=== PATIENT | female | born 1950 | race Caucasian/White ===

== ENCOUNTER 2018-03-20 12:31 | Inpatient (IN) | payer OTHER ==
[2018-03-20 13:17] LABS: Absolute Monocytes 0.7 K/uL (0.1-1.3); Basophils % 0.8 % (0-1.3); Eosinophils % 2.3 % (0-4.4); Hematocrit 44.1 % (36.0-45.0); Lymphocytes % 22.6 % (15.3-44.8); MCH 29.6 pg (27.0-35.0); MCV 87.6 fL (80-100); MPV 9.2 fL (7.6-11.3); Monocytes % 7.4 % (3.3-12.3); RBC Red Blood Cell Count 5.04 M/uL (3.86-4.86)
[2018-03-20 13:34] LABS: Albumin 3.6 g/dL (3.4-5.0); Bilirubin Total 0.4 mg/dL (0.2-1.0); Magnesium 1.8 mg/dL (1.8-2.4)
--- NOTE | 2018-03-20 14:00 | RAD REPORT ---
EXAM DESCRIPTION: RAD - Chest Single View - 03/20/2018 1:33 pm CLINICAL HISTORY: Chest pain COMPARISON: August 2012 TECHNIQUE: AP portable chest image was obtained 1330 hours . FINDINGS: Lungs are clear. Heart size is normal. Pulmonary vasculature within normal limits. Lung ma rkings are similar to the comparison. No measurable pleural effusion and no pneumothorax. Mild should er joint degenerative changes are present. No acute aortic findings suspected. IMPRESSION: No acute cardiopulmonary process. No significant change from comparison.
[2018-03-20] MEDS ORDERED: MORPHINE 4 MG/ML SYR IV PRN (15:07)
[2018-03-20] MEDS ORDERED: ONDANSETRON 4 MG/2 ML VIAL IV PRN (15:07)
--- NOTE | 2018-03-20 15:23 | EDPHYS ---
Physician Documentation [facility] Name: Laura Khanna Age: 68 yrs Sex: Female : 1950 Arrival Date: 03/20/2018 Time: 12:34 Bed 5 Private MD: Billy Khan R ED Physician Errol Godfrey HPI: 03/20 12:48 This 68 yrs old Female presents to ER via Unassigned with complaints of Chest ps1 Tightness, Dizziness, Headache. 12:[address] her way to the [facility] and had an acute onset of lightheadedness and then ps1 headache and chest discomfort. She is IDDM and took 20U lantus prior she had eggs and no carbs. BS 140 prior to administration. Seen by [facility] previously and had LHC 2 years ago that was clean. Patient states she had substernal CP that was discribed as discomfort without radiation and rated as mild to moderate. No remitting or exacerbating factors. . Historical: - Allergies: 12:54 Iodine; jl7 12:54 Levaquin; jl7 12:54 PENICILLINS; jl7 - Home Meds: 12:45 Lantus 100 unit/mL Sub-Q soln [Active]; metformin 1,000 mg Oral tab 1 tab 2 times per aa5 day [Active]; Levothroid 75 mcg Oral tab 1 tab once daily [Active]; omeprazole 40 mg Oral cpDR 1 cap once daily [Active]; metoprolol tartrate 50 mg Oral tab once daily [Active]; - PMHx: 12:45 Hypertension; Hypothyroidism; Diabetes - IDDM; aa5 - PSHx: 12:45 Hysterectomy; Tonsillectomy; Rotator Cuff repair; Cholecystectomy; Appendectomy; aa5 - Immunization history:: Adult Immunizations up to date. - Social history:: Smoking status: Patient/guardian denies using tobacco. - Ebola Screening: : No symptoms or risks identified at this time. ROS: 12:48 Constitutional: Negative for fever, chills, and weight loss, Eyes: Negative for injury, ps1 pain, redness, and discharge, Respiratory: Negative for shortness of breath, cough, wheezing, and pleuritic chest pain, Abdomen/GI: Negative for abdominal pain, nausea, vomiting, diarrhea, and constipation, Back: Negative for injury and pain, MS/Extremity: Negative for injury and deformity, Skin: Negative for injury, rash, and discoloration. 12:48 Cardiovascular: Positive for chest pain. 12:48 Neuro: Positive for near syncope. Exam: 12:48 Constitutional: This is a well developed, well nourished patient who is awake, alert, ps1 and in no acute distress. Head/Face: Normocephalic, atraumatic. Eyes: Pupils equal round and reactive to light, extra-ocular motions intact. Lids and lashes normal. Conjunctiva and sclera are non-icteric and not injected. Chest/axilla: Normal chest wall appearance and motion. Nontender with no deformity. No lesions are appreciated. Cardiovascular: Regular rate and rhythm. No gallops, murmurs, or rubs. Normal PMI, no JVD. No pulse deficits. Respiratory: Lungs have equal breath sounds bilaterally, clear to auscultation and percussion. No rales, rhonchi or wheezes noted. No increased work of breathing, no retractions or nasal flaring. Abdomen/GI: Soft, non-tender, with normal bowel sounds. No distension or tympany. No guarding or rebound. No evidence of tenderness throughout. MS/ Extremity: Pulses equal, no cyanosis. Neurovascular intact. Full, normal range of motion. Neuro: Awake and alert, GCS 15, oriented to person, place, time, and situation. Cranial nerves II-XII grossly intact. Sensory grossly intact. Psych: Awake, alert, with orientation to person, place and time. Behavior, mood, and affect are within normal limits. Vital Signs: 12:37 BP 176 / 105; Pulse 80; Resp 19 S; Temp 97.7(O); Pulse Ox 99% on R/A; Weight 102.06 kg jl7 (R); Height 5 ft. 5 in. (165.10 cm) (R); Pain 7/10; 13:00 BP 185 / 85; Pulse 78; Resp 16 S; Pulse Ox 97% on R/A; aa5 13:30 BP 171 / 91; Pulse 78; Resp 16 S; Pulse Ox 95% on R/A; aa5 14:00 BP 172 / 75; Pulse 75; Resp 16; Pulse Ox 96% on R/A; aa5 15:00 BP 170 / 83; Pulse 75; Resp 16 S; Pulse Ox 98% on R/A; aa5 12:37 Body Mass Index 37.44 (102.06 kg, 165.10 cm) jl7 MDM: 12:47 Patient medically screened. ps1 03/20 12:55 Order name: CBC with Diff; Complete Time: 13:24 ps1 03/20 12:55 Order name: Magnesium; Complete Time: 13:48 ps1 03/20 12:55 Order name: NT PRO-BNP; Complete Time: 13:48 ps1 03/20 12:55 Order name: Troponin (emerg Dept Use Only); Complete Time: 13:48 ps1 03/20 12:55 Order name: CMP; Complete Time: 13:48 ps1 03/20 14:11 Order name: Urine Dipstick--Ancillary (enter results) bd 03/20 12:55 Order name: XRAY Chest (1 view); Complete Time: 14:04 ps1 03/20 15:09 Order name: Basic Metabolic Panel EDMS 03/20 15:09 Order name: Basic Metabolic Panel EDMS 03/20 15:09 Order name: CBC with Automated Diff EDMS 03/20 15:09 Order name: CBC with Automated Diff EDMS 03/20 15:09 Order name: Troponin I EDMS 03/20 15:09 Order name: Troponin I EDMS 03/20 15:09 Order name: Troponin I EDMS 03/20 12:55 Order name: EKG; Complete Time: 12:56 ps1 03/20 12:55 Order name: Cardiac monitoring; Complete Time: 13:06 ps1 03/20 12:55 Order name: EKG - Nurse/Tech; Complete Time: 13:06 ps1 03/20 12:55 Order name: IV Saline Lock; Complete Time: 13:06 ps1 03/20 12:55 Order name: Labs collected and sent; Complete Time: 13:06 ps1 03/20 12:55 Order name: O2 Per Protocol; Complete Time: 13:06 ps1 03/20 12:55 Order name: O2 Sat Monitoring; Complete Time: 13:06 ps1 03/20 12:55 Order name: Urine Dipstick-Ancillary (obtain specimen); Complete Time: 14:16 ps1 03/20 15:09 Order name: CONS Physician Consult EDMS 03/20 15:09 Order name: Regular EDMS 03/20 15:09 Order name: EKG Electrocardiogram EDMS 08/13 15:09 Order name: EKG Electrocardiogram EDIA 03/20 15:09 Order name: EKG Electrocardiogram EDIA 03/20 15:09 Order name: EKG Electrocardiogram EDIA EC:48 Rate is 76 beats/min. Rhythm is regular. Left axis deviation noted. FL interval is ps1 normal. QRS interval is prolonged. QT interval is normal. No Q waves. T waves are Normal. No ST changes noted. Clinical impression: LAD, LBBB, no sgarbossa. . Interpreted by me. Administered Medications: No medications were administered Point of Care Testing: Blood Glucose: 12:50 Blood Glucose: 114 mg/dL; aa5 Ranges: Critical Glucose Levels:Adult <50 mg/dl or >400 mg/dl <40 mg/dl or >180 mg/dl Disposition: 03/20/18 15:22 Hospitalization ordered by Billy Khan for Observation. Preliminary diagnosis is Other chest pain. - Bed requested for Telemetry/MedSurg (observation). - Status is Observation. la1 - Condition is Stable. - Problem is new. - Symptoms are unchanged. UTI on Admission? No Signatures: Dispatcher [employer] EDIA Lauryn Byrd bd Shilpa Culver, RN RN aa5 Julio Cesar Plasencia RN RN la1 Jayden Carter RN RN jl7 Errol Godfrey MD MD ps1 Corrections: (The following items were deleted from the chart) 12:54 12:53 Immunization history: Adult Immunizations jl7 jl7 15:23 15:22 Hospitalization Ordered by Billy Khan MD for Observation. Preliminary diagnosis bd is Other chest pain. Bed requested for Telemetry/MedSurg (observation). Status is Observation. Condition is Stable. Problem is new. Symptoms are unchanged. UTI on Admission? No. ps1 15:47 15:23 03/20/2018 15:22 Hospitalization Ordered by Billy Khan MD for Observation. la1 Preliminary diagnosis is Other chest pain. Bed requested for Telemetry/MedSurg (observation). Status is Observation. Condition is Stable. Problem is new. Symptoms are unchanged. UTI on Admission? No. bd
--- NOTE | 2018-03-20 15:23 | ER ---
Nurse's Notes [facility] Name: Laura Khanna Age: 68 yrs Sex: Female : 1950 Arrival Date: 03/20/2018 Time: 12:34 Bed 5 Private MD: Billy Khan R Diagnosis: Other chest pain Presentation: 03/20 12:37 Presenting complaint: Patient states: Sudden onset of chest pain and dizziness started jl7 about an hour ago. 12:37 Acuity: ZACARIAS 2 jl7 12:45 Initial Sepsis Screen: Does the patient meet any 2 criteria? No. Patient's initial aa5 sepsis screen is negative. Does the patient have a suspected source of infection? No. Patient's initial sepsis screen is negative. 12:53 Transition of care: patient was not received from another setting of care. Onset of jl7 symptoms was March 20, 2018 at 11:30. Risk Assessment: Do you want to hurt yourself or someone else? Patient reports no desire to harm self or others. Care prior to arrival: None. 12:53 Method Of Arrival: Ambulatory jl7 Historical: - Allergies: 12:54 Iodine; jl7 12:54 Levaquin; jl7 12:54 PENICILLINS; jl7 - Home Meds: 12:45 Lantus 100 unit/mL Sub-Q soln [Active]; metformin 1,000 mg Oral tab 1 tab 2 times per aa5 day [Active]; Levothroid 75 mcg Oral tab 1 tab once daily [Active]; omeprazole 40 mg Oral cpDR 1 cap once daily [Active]; metoprolol tartrate 50 mg Oral tab once daily [Active]; - PMHx: 12:45 Hypertension; Hypothyroidism; Diabetes - IDDM; aa5 - PSHx: 12:45 Hysterectomy; Tonsillectomy; Rotator Cuff repair; Cholecystectomy; Appendectomy; aa5 - Immunization history:: Adult Immunizations up to date. - Social history:: Smoking status: Patient/guardian denies using tobacco. - Ebola Screening: : No symptoms or risks identified at this time. Screenin:45 Abuse screen: Denies threats or abuse. Nutritional screening: No deficits noted. aa5 Tuberculosis screening: No symptoms or risk factors identified. Fall Risk None identified. Assessment: 12:45 General: Appears comfortable, Behavior is calm, cooperative. Pain: Complains of pain in aa5 mid-sternal area and neck Pain does not radiate. Pain currently is 0 out of 10 on a pain scale. Quality of pain is described as pressure, squeezing, Pain began 30 min ago. Is intermittent. Neuro: Level of Consciousness is awake, alert, obeys commands, Oriented to person, place, time, situation, Director [employer] are equal bilaterally Moves all extremities. Speech is normal, Facial symmetry appears normal, Pupils are PERRLA, Pt currently denies dizziness . Cardiovascular: Heart tones S1 S2 present Rhythm is sinus rhythm. Respiratory: Airway is patent Respiratory effort is even, unlabored, Respiratory pattern is regular, symmetrical, Breath sounds are clear bilaterally. Denies cough, shortness of breath. GI: Abdomen is round non-distended, Bowel sounds present X 4 quads. Abd is soft and non tender X 4 quads. Reports nausea, Patient currently denies vomiting. : No signs and/or symptoms were reported regarding the genitourinary system. EENT: No signs and/or symptoms were reported regarding the EENT system. Derm: Skin is pink, warm \\T\\ dry. Musculoskeletal: Range of motion: intact in all extremities. 13:00 Reassessment: Patient and/or family updated on plan of care and expected duration. Pain aa5 level reassessed. Patient is alert, oriented x 3, equal unlabored respirations, skin warm/dry/pink. Patient denies pain at this time. Pt notified of wait time for lab results . 14:00 Reassessment: Patient and/or family updated on plan of care and expected duration. Pain aa5 level reassessed. Patient is alert, oriented x 3, equal unlabored respirations, skin warm/dry/pink. Patient denies pain at this time. Patient states feeling better. Pt states "I've been getting chest pains every now and then and they last for a couple of minutes and then it goes away". 14:00 Cardiovascular: Rhythm is sinus rhythm. aa5 15:00 Reassessment: Patient and/or family updated on plan of care and expected duration. Pain aa5 level reassessed. Patient is alert, oriented x 3, equal unlabored respirations, skin warm/dry/pink. Patient denies pain at this time. Awaiting disposition. Vital Signs: 12:37 BP 176 / 105; Pulse 80; Resp 19 S; Temp 97.7(O); Pulse Ox 99% on R/A; Weight 102.06 kg jl7 (R); Height 5 ft. 5 in. (165.10 cm) (R); Pain 7/10; 13:00 BP 185 / 85; Pulse 78; Resp 16 S; Pulse Ox 97% on R/A; aa5 13:30 BP 171 / 91; Pulse 78; Resp 16 S; Pulse Ox 95% on R/A; aa5 14:00 BP 172 / 75; Pulse 75; Resp 16; Pulse Ox 96% on R/A; aa5 15:00 BP 170 / 83; Pulse 75; Resp 16 S; Pulse Ox 98% on R/A; aa5 12:37 Body Mass Index 37.44 (102.06 kg, 165.10 cm) 7 ED Course: 12:34 Patient arrived in ED. mr 12:35 Billy Khan MD is Private Physician. mr 12:37 Arm band placed on right wrist. Patient placed in an exam room, on a stretcher. jl7 12:38 Triage completed. jl7 12:41 Errol Godfrey MD is Attending Physician. ps1 12:41 Shilpa Culver RN is Primary Nurse. aa5 12:45 Patient has correct armband on for positive identification. Placed in gown. Bed in low aa5 position. Call light in reach. Side rails up X2. 12:45 monitoring and evaluation advisor on. Pulse ox on. NIBP on. aa5 12:45 No provider procedures requiring assistance completed. Patient maintains SpO2 aa5 saturation greater than 95% on room air. 12:56 Initial lab(s) drawn, by me, sent to lab. Inserted saline lock: 20 gauge in right aa5 wrist, using aseptic technique. Blood collected. 12:56 Missed attempt(s): 20 gauge in right forearm. Bleeding controlled, band aid applied, aa5 catheter tip intact. 13:31 X-ray completed. Portable x-ray completed in exam room. Patient tolerated procedure ml well. 13:32 XRAY Chest (1 view) In Process Unspecified. EDMS 15:13 Report given to Julio Cesar Plasencia RN. aa5 15:22 Errol Godfrey MD is Hospitalizing Provider. ps1 15:22 Hospitalizing Provider role handed off by Errol Godfrey MD ps1 15:22 Billy Khan MD is Hospitalizing Provider. ps1 15:46 Patient admitted, IV remains in place. intact. la1 Administered Medications: No medications were administered Point of Care Testing: Blood Glucose: 12:50 Blood Glucose: 114 mg/dL; aa5 Ranges: Outcome: 15:22 Decision to Hospitalize by Provider. ps1 15:47 Admitted to Tele accompanied by tech, via wheelchair, room 402. la1 15:47 Condition: stable 15:47 Instructed on the need for admit. 15:47 Patient left the ED. la1 Signatures: Dispatcher [employer] EDMS GuzmanVicky mr Pham, Amy Shilpa Domingo RN RN aa5 Julio Cesar Plasencia RN RN la1 Jayden Carter RN RN jl7 Errol Godfrey MD MD ps1 Corrections: (The following items were deleted from the chart) 12:54 12:53 Immunization history: Adult Immunizations jl7 jl7 14:19 14:00 Reassessment: Patient and/or family updated on plan of care and expected aa5 duration. Pain level reassessed. Patient is alert, oriented x 3, equal unlabored respirations, skin warm/dry/pink. Patient denies pain at this time. Patient states feeling better. aa5 14:20 13:00 Reassessment: Patient and/or family updated on plan of care and expected aa5 duration. Pain level reassessed. Patient is alert, oriented x 3, equal unlabored respirations, skin warm/dry/pink. Pt notified of wait time for lab results . aa5 15:12 15:00 Reassessment: Patient and/or family updated on plan of care and expected aa5 duration. Pain level reassessed. Patient is alert, oriented x 3, equal unlabored respirations, skin warm/dry/pink. Patient denies pain at this time. aa5
[2018-03-20 16:18] LABS: Urine Blood NEGATIVE (NEG); Urine Glucose NEGATIVE (NEG); Urine Protein NEGATIVE (NEG)
--- NOTE | 2018-03-20 17:26 | EKG ---
Test Date: 2018-03-20 Test Time: 12:48:58 Recreational Counselor: NORMA MEASUREMENT RESULTS: Intervals: Rate: 76 RI: 150 QRSD: 126 QT: 414 QTc: 465 Benedict: P: 21 RI: 150 QRS: -56 T: 92 INTERPRETIVE STATEMENTS: Normal sinus rhythm Left axis deviation Left bundle branch block Abnormal ECG Compared to ECG 09/04/2012 07:49:44 No significant changes Electronically Signed On 03-20-18 17:26:11 CDT by Cole Almanzar
[2018-03-20] MEDS ORDERED: NITROGLYCERIN 1 GM PKT TD SCH (18:00)
[2018-03-20 18:15] VITALS: BMI 37.4
[2018-03-20] MEDS ORDERED: PNEUMOCOCCAL VACCINE 0.5 ML IMVAC ONE (19:00)
--- NOTE | 2018-03-20 21:13 | RAD REPORT ---
EXAM DESCRIPTION: KARMEN Orellana CP - 03/20/2018 8:45 pm CLINICAL HISTORY: Syncope COMPARISON: None. TECHNIQUE: Real-time sonographic evaluation of both carotid systems was performed. Grayscale and Dop pler interrogation was performed with waveform tracing bilaterally. FINDINGS: Normal high resistance waveforms are noted in both external carotid arteries. The common c arotid arteries and internal carotid arteries show normal low resistance waveforms. No significant plaque formation is seen. Peak systolic velocity values are normal range. However, int ernal carotid artery velocities are elevated, left greater than right due to tortuosity. The elevated velocities generate abnormally high ICA/ CCA ratios. Internal carotid arteries are tortuous. No susp icious waveform pattern seen. Antegrade flow seen in both vertebral arteries. Velocity values and ratios were recorded and are retained in the patient's imaging records. IMPRESSION: On visual inspection, no significant atherosclerotic changes are identifiable. Elevated internal carotid artery velocities and elevated ICA/ CCA ratios are believed to be due to th e ICA tortuosity rather than true atherosclerotic disease. If there are ongoing clinical concerns or exam finding abnormalities, CT angiography or MR angiograph y could be performed.
[2018-03-20] MEDS: ACETAMINOPHEN 500 MG TAB PO PRN (21:34)
--- NOTE | 2018-03-21 00:30 | CON ---
Identification: A 68-year-old woman. Reason For Consult: Syncope and chest pain. History Of Present Illness: Mrs. Khanna was driving. She suddenly felt near syncopal, pulled out to the side of the road. Later, she started driving again, then again felt dizzy. She was brought to the ER. Since being here, she has not had any more of her dizziness. Her blood tests and EKGs and r hythm strips all look good. She has a history of hypertension and diabetes. Social History: The patient uses no tobacco. Medications: She takes insulin, omeprazole, simvastatin, ibuprofen, metoprolol, irbesartan, metformi n, levothyroxine, and aspirin. Allergies: SHE IS ALLERGIC TO LEVOFLOXACIN, PENICILLINS, IODINE INCLUDING BETADINE SOAK. Physical Examination: VITAL SIGNS: 5 feet 5 inches, 225 pounds. GENERAL: Obese, alert and oriented, pleasant, not in distress. NECK: Carotids, no bruit. LUNGS: Clear. HEART: Normal. EXTREMITIES: Normal pulses. Labs: Her electrocardiogram is significant for left bundle-branch block. Apparently, this has been noted before. Four years ago, for similar symptoms, a cardiac cath was done, and it was said to be c ompletely normal. Impression: The patient had syncopal episode. It is unclear what the cause of it is. She did have 1 glucose demonstrated to be 89, but none was done right when she was having symptoms, so it is possi ble she was hypoglycemic. She has liver enzymes that would make one think she has hepatic steatosis, rule out. I will think of her situation again after monitoring her rhythm overnight, getting a stre ss test, carotid Doppler, and echocardiogram. LIANNE/ALFRED Voice ID: [id number] Report ID: [id number]
[2018-03-21 05:57] LABS: Absolute Lymphocytes (CBC) 1.7 K/uL (0.7-4.9); Absolute Monocytes 0.5 K/uL (0.1-1.3); Absolute Neutrophil 3.9 K/uL (1.8-8.0); Eosinophils % 2.2 % (0-4.4); Lymphocytes % 26.7 % (15.3-44.8); MCH 29.9 pg (27.0-35.0); MCV 87.7 fL (80-100); MPV 8.8 fL (7.6-11.3); Monocytes % 8.1 % (3.3-12.3); RBC Red Blood Cell Count 4.45 M/uL (3.86-4.86)
[2018-03-21] MEDS: LEVOTHYROXINE SOD 0.075 MG TAB PO SCH (05:59)
[2018-03-21] MEDS ORDERED: PANTOPRAZOLE 40MG TABLET PO ONE (06:30)
[2018-03-21] MEDS: ASPIRIN EC 81 MG TAB PO SCH (08:47)
[2018-03-21] MEDS: INSULIN GLARGINE 100 UNITS/ML SQ SCH ×2 (09:00→21:00)
[2018-03-21] MEDS ORDERED: ASPIRIN 81 MG CHEWABLE TABLET PO SCH (09:00)
[2018-03-21] MEDS ORDERED: REGADENOSON 0.4 MG/5 ML SYR IV ONE (09:26)
[2018-03-21] MEDS: ACETAMINOPHEN 500 MG TAB PO PRN ×2 (11:38→21:56)
--- NOTE | 2018-03-21 13:22 | RAD REPORT ---
EXAM DESCRIPTION: NM - Rest Stress Cardiac Imaging - 03/21/2018 1:12 pm CLINICAL HISTORY: Chest pain. COMPARISON: 2008 TECHNIQUE: The patient was administered approximately 10mCi of Tc 99m Sestamibi prior to resting SPE CT imaging of the heart. The patient was then administered approximately 30 mCi of Tc 99m Sestamibi f ollowing exercise or pharmacologic stress. Multiplanar SPECT images were reviewed. FINDINGS: Stress images demonstrate a small to moderate area of diminished radiotracer uptake involv ing the anterior left ventricular myocardium. Rest images demonstrate normal radiotracer uptake involving the anterior wall. The left ventricular ejection fraction equals 56% IMPRESSION: Small to moderate apparent reversible perfusion defect involving the anterior left vent ricular myocardium suspicious for stress-induced ischemia
[2018-03-21] MEDS ORDERED: predniSONE 20 MG TAB PO ONE (16:54)
--- NOTE | 2018-03-21 17:00 | TREADPHA ---
DX: CHEST PAIN, NEAR SYNCOPE Date of Study: 03/21/2018 Ht: 5 5 Wt: 225 lb 0 oz Consulting Physician: MARILYNN MEDICATIONS: TYLENOL, ASPIRIN, LIPITOR, LANTUS, AVAPRO, SYNTHROID, ZOFRAN HISTORY: 68 YEAR OLD FEMALE COMPLAINTS OF CHEST PAIN. MEDICAL HISTORY: HYPERTENSION, DIABETES MELLITUS, HYPOTHYROIDISM. PHYSICIAL EXAMINATION: RESTING B.P.: 182/73 RESTING H.R.: 72 RESTING EKG: SINUS WITH PREMATURE VENTRICULAR COMPLEX, LEFT BUNDLE BRANCH BLOCK PROTOCOL: LEXISCAN EXERCISE TIME: 3:30 B.P. AT PEAK STRESS: 168/76 IMPRESSION: LEXISCAN INJECTED, CARDIOLITE INJECTED PER PROTOCOL. SEE NUCLEAR MEDICINE REPORT. NO SUPRAVENTRICULAR TACHYCARDIA. NO VENTRICULAR TACHYCARDIA. NO PREMATURE VENTRICULAR COMPLEXES. DENIED CHEST PAIN. NON-DIAGNOSTIC ELECTROCARDIOGRAM WITH LEXISCAN STRESS.
[2018-03-21] MEDS ORDERED: GLUCAGON 1 MG/VIAL IM PRN (17:10)
[2018-03-21] MEDS ORDERED: D50W 25 GM/50 ML SYRINGE IV PRN (17:10)
[2018-03-21] MEDS: INSULIN -REGULAR HUMAN 50 UNIT/0.5 ML ML SQ SCH ×2 (17:36→21:51)
[2018-03-21] MEDS: HYDRALAZINE HCL 20 MG/ML VIAL IV PRN (17:36)
--- NOTE | 2018-03-21 17:58 | ECHO ---
HEIGHT: 5 ft 5 in WEIGHT: 225 lb 0 oz DATE OF STUDY: 03/21/[address]: 2-DIMENSIONAL: YES M.MODE: YES DOPPLER: YES COLOR FLOW: YES TDS: NO PORTABLE: NO DEFINITY: NO BUBBLE STUDY: NO DIAGNOSIS: CHEST PAIN CARDIAC HISTORY: CATHERIZATION: NO SURGERY: NO PROSTHETIC VALVE: NO PACEMAKER: NO MEASUREMENTS (cm) DIASTOLIC (NORMALS) SYSTOLIC (NORMALS) IVSd 1.3 (0.6-1.2) LA Diam 3.5 (1.9-4.0) LVEF 53% LVIDd 4.4 (3.5-5.7) LVIDs 3.2 (2.0-3.5) %FS 27% LVPWd 1.3 (0.6-1.2) Ao Diam 2.7 (2.0-3.7) 2 DIMENSIONAL ASSESSMENT: RIGHT ATRIUM: NORMAL LEFT ATRIUM: NORMAL RIGHT VENTRICLE: NORMAL LEFT VENTRICLE: LEFT VENTRICULAR HYPERTROPHY TRICUSPID VALVE: NORMAL MITRAL VALVE: NORMAL PULMONIC VALVE: NORMAL AORTIC VALVE: NORMAL PERICARDIAL EFFUSION: NONE AORTIC ROOT: NORMAL LEFT VENTRICULAR WALL MOTION: NORMAL. DOPPLER/COLOR FLOW: IMPAIRED LEFT VENTRICULAR RELAXATION. COMMENTS: NORMAL LEFT VENTRICULAR EJECTION FRACTION. LEFT VENTRICULAR HYPERTROPHY. IMPAIRED LEFT VENTRICULAR RELAXATION. TECHNOLOGIST: CAMILA MOORE
[2018-03-21] MEDS: IRBESARTAN 150 MG TAB PO SCH (21:49)
[2018-03-21] MEDS: ATORVASTATIN 20 MG TAB PO SCH (21:49)
[2018-03-22] MEDS: HYDRALAZINE HCL 20 MG/ML VIAL IV PRN ×2 (00:42→08:42)
--- NOTE | 2018-03-22 01:59 | HP ---
Date of Admission: 03/20/2018 Chief Complaint: Dizziness, near syncope, and chest pain. History Of Present Illness: A 68-year-old female who is a known diabetic, on medication, was brought to the emergency room because of feeling of dizziness and near syncope and tightness in the retroste rnal area while driving. The patient had evaluation done. There was no evidence of myocardial injur y . Past Medical History: Positive for type 2 diabetes, hypothyroidism, hypertension, gastroesophageal r eflux disease. Past Surgical History: Positive for gallbladder surgery, appendix surgery, tonsillectomy, hysterecto my, and shoulder surgery. Review of Systems: No history of fever, chills, or rigors. Physical Examination: General: Reveals a 68-year-old female, obese. Vital Signs: Normal. HEENT: Negative. Neck: Supple. JVD negative. Chest: Clear. Heart: Regular. Abdomen: Pendulous, nontender. Extremities: No edema. Neurological: No deficits. Laboratory Data: White count normal. Chem profile normal except for mild elevation of the ALT, AST. BNP 156. Troponin normal. Assessment: 1.Dizziness, near syncope. 2.Retrosternal chest pain. 3.Type 2 diabetes. 4.Hypothyroidism. 5.Hypertension. 6.History of acid reflux disease. Plan: The patient had no evidence of myocardial injury, however, because of the symptoms, the patien t is scheduled for a pharmacological stress test. HOA/ALFRED Voice ID: [id number]
[2018-03-22] MEDS ORDERED: NA CHLORIDE 0.9% 1,000 ML ONE (05:14)
[2018-03-22] MEDS: LEVOTHYROXINE SOD 0.075 MG TAB PO SCH (05:54)
[2018-03-22] MEDS: ASPIRIN EC 81 MG TAB PO SCH (05:54)
[2018-03-22] MEDS: INSULIN -REGULAR HUMAN 50 UNIT/0.5 ML ML SQ SCH ×4 (08:02→21:20)
[2018-03-22] MEDS ORDERED: LIDOCAINE 1% MPF 2 ML AMPULE ONE (08:32)
[2018-03-22] MEDS ORDERED: HEPA 1000U/500MLS 1,000 UNIT/500 ML BAG IV ONE (08:32)
[2018-03-22] MEDS: INSULIN GLARGINE 100 UNITS/ML SQ SCH ×2 (08:53→21:19)
[2018-03-22] MEDS ORDERED: ATROPINE SULF 1 MG/10 ML SYR IV ONE (09:16)
[2018-03-22] MEDS ORDERED: MIDAZOLAM HCL 2 MG/2 ML INJ ONE ×3 (09:16→09:48)
[2018-03-22] MEDS ORDERED: FENTANYL CITR 100 MCG/2 ML ONE (09:16)
[2018-03-22] MEDS ORDERED: NICARDIPINE HCL 25 MG/10 ML IV ONE (09:16)
[2018-03-22] MEDS ORDERED: NA CHLORIDE 0.9% 50 ML ONE (09:16)
[2018-03-22] MEDS ORDERED: HEPARIN 5000 UNIT/ML 1 ML VIAL ONE (09:16)
[2018-03-22] MEDS ORDERED: NITROGLYCERIN/D5W 25 MG/250 ML BTL IV ONE (09:16)
[2018-03-22] MEDS ORDERED: METHYLPREDNISOLONE 125 MG INJ ONE (09:23)
[2018-03-22] MEDS ORDERED: METOPROLOL TARTRATE 5 MG/5 ML INJ IV ONE ×3 (09:28→09:53)
[2018-03-22] MEDS ORDERED: PRASUGREL (EFFIENT) 10 MG TAB ONE (09:56)
[2018-03-22] MEDS ORDERED: HYDRALAZINE HCL 20 MG/ML VIAL ONE (10:01)
[2018-03-22] MEDS ORDERED: ASPIRIN 81 MG CHEWABLE TABLET ONE (10:20)
[2018-03-22] MEDS: AMLODIPINE 5 MG TAB PO ONE ×2 (10:23→14:07)
[2018-03-22] MEDS ORDERED: METOPROLOL TAR 25 MG TAB PO ONE (10:30)
[2018-03-22] MEDS ORDERED: ACETAMINOPHEN 325 MG TABLET ONE (12:11)
[2018-03-22] MEDS ORDERED: INSULIN -REGULAR HUMAN 50 UNIT/0.5 ML ML ONE (12:11)
[2018-03-22] MEDS: IRBESARTAN 150 MG TAB PO SCH (21:18)
[2018-03-22] MEDS: METOPROLOL TAR 50 MG TAB PO SCH (21:18)
[2018-03-22] MEDS: ATORVASTATIN 20 MG TAB PO SCH (21:19)
--- NOTE | 2018-03-22 22:11 | OP ---
Surgeon: Cole Almanzar MD Procedures: Left heart catheterization, coronary left ventricular angiography, stent of the proximal left anterior descending because of a 70% stenosis. After a successful stent placement, there was n o residual stenosis. Her other arteries were free of any significant disease. Procedure Findings: The patient's coronary arteries were normal, right dominant, except for the prox imal LAD, which had a 70% stenosis. It was irregular in contour, appeared to have a dissection flap at the distal end of the lesion. It was proximal LAD about 3 mm from the ostium and before the first diagonal. After stenting, there was no residual stenosis. Left ventricular ejection fraction carin l. Left ventricular end-diastolic pressure was very elevated. At the beginning of the procedure, bin wilhelm was markedly hypertensive and tachycardic. We managed to give her enough hydralazine and intraveno us Lopressor to get her blood pressure and heart rate down during the actual procedure. Procedure In Detail: The patient gave us informed consent. She was brought to the cardiac chemical laboratory scientist in a fasting state, sedated with Versed and fentanyl, prepared and draped in usual sterile fashion; 1 % lidocaine was used to anesthetize the skin over the right radial artery. The artery was entered us ing a 21-gauge needle. With 0.021-inch diameter guidewire, Seldinger technique, we were able to plac e a 6-Mongolian Terumo sheath. It was flushed, and we gave the radial cocktail consisting of nicardipin e, heparin, and nitroglycerin. We were able to angiogram the left coronary adequately with the TIG c atheter. It was guided into place using a Glidewire and fluoroscopy. It gave in adequate pictures o f the right because it selectively cannulated the conus branch. Thus, we switched to a Richard cathete r. We were able to get very good pictures. We decided to do a stent in the proximal LAD, so we gave Angiomax, demonstrated an activated clotting time greater than 300. Using exchange technique, I meng nila an Ikari 3.5 left. It was guided into the left main ostium and gave adequate support. We crosse d the lesion using a [place] wire. We primary stented with a 3.0 x 16 Synergy stent, inflated to 10 a tmospheres, deflated, removed the balloon a millimeter, reinflated, and withdrew the stent balloon fr om the lesion. We took angiograms, found an excellent angiographic result. So, stent balloons and w ires were removed. Angiograms were taken. We then decided the procedure was done. So, we turned of f Angiomax. We removed the guide catheter over a J-wire, flushed the sheath, removed it, and placed a TR Band. The patient will be loaded with Effient. She will receive large doses of beta-blockers a nd angiotensin receptor blockers and the maximum dose of Lipitor. Estimated Blood Loss: 10 cc. Cheerleading Coach: Lizzie Palacios. BIN/ALFRED Voice ID: [id number] Report ID: [id number]
[2018-03-23] MEDS: LEVOTHYROXINE SOD 0.075 MG TAB PO SCH (05:24)
[2018-03-23] MEDS: METOPROLOL TAR 50 MG TAB PO SCH (08:02)
[2018-03-23] MEDS: ASPIRIN EC 81 MG TAB PO SCH (08:03)
[2018-03-23] MEDS: INSULIN -REGULAR HUMAN 50 UNIT/0.5 ML ML SQ SCH ×2 (08:17→12:30)
[2018-03-23] MEDS: INSULIN GLARGINE 100 UNITS/ML SQ SCH (08:17)
[2018-03-23] MEDS ORDERED: PRASUGREL (EFFIENT) 10 MG TAB PO SCH (09:00)
[2018-03-23 12:20] VITALS: BP 161/70; TEMP 97.9
[2018-03-23 12:48] VITALS: O2SAT 97
[2018-03-23] MEDS ORDERED: ATORVASTATIN 80 MG TAB PO SCH (21:00)
[2018-03-24] MEDS ORDERED: AMLODIPINE 5 MG TAB PO SCH (09:00)
== END 2018-03-23 13:05 | disposition home or self-care (01) | DRG 247 ==
LOC: ER 12:31 → INTOOBSV 15:09 → ERHOLD 15:09 → OBSVTOIN 15:09 → 4TH 15:42 → OBSVTOIN 03-21 16:42
PROVIDERS: ADMIT Internal Medicine; ATTEND Internal Medicine
PROC: 027034Z Dilation of Coronary Artery, One Artery with Drug-eluting Intraluminal Device, Percutaneous Approach (ICD-10-PCS; principal; 2018-03-22)
PROC: 4A023N7 Measurement of Cardiac Sampling and Pressure, Left Heart, Percutaneous Approach (ICD-10-PCS; 2018-03-22)
PROC: B2111ZZ Fluoroscopy of Multiple Coronary Arteries using Low Osmolar Contrast (ICD-10-PCS; 2018-03-22)
PROC: B2151ZZ Fluoroscopy of Left Heart using Low Osmolar Contrast (ICD-10-PCS; 2018-03-22)
DX: I25.110 Atherosclerotic heart disease of native coronary artery with unstable angina pectoris (principal); I10 Essential (primary) hypertension; E11.9 Type 2 diabetes mellitus without complications; K21.9 Gastro-esophageal reflux disease without esophagitis; R55 Syncope and collapse; I44.7 Left bundle-branch block, unspecified; E66.9 Obesity, unspecified; Z68.37 Body mass index [BMI] 37.0-37.9, adult; E03.9 Hypothyroidism, unspecified; Z79.4 Long term (current) use of insulin; Z88.0 Allergy status to penicillin; Z88.1 Allergy status to other antibiotic agents; Z91.041 Radiographic dye allergy status
CPT/HCPCS: 36415; 71045; 78452; 80048; 80053; 80076; 81003; 81015; 82550; 82553; 82962; 83735; 83880; 84484; 85025; 85347; 85610; 85730; 87077; 87086; 87088; 87186; 90670; 92928; 93005; 93017; 93306; 93458; 93880; 96360; 96361; 96372; 99285; A9500; C1725; C1893; G0009; G0378; J0360; J0583; J0696; J1644; J1650; J2001; J2250; J2785; J2930; J3010; J7030; J7512

== ENCOUNTER 2018-03-23 19:22 | Observation (INO) | payer OTHER ==
[2018-03-23 20:00] LABS: Absolute Monocytes 0.7 K/uL (0.1-1.3); Absolute Neutrophil 6.5 K/uL (1.8-8.0); Basophils % 0.8 % (0-1.3); Eosinophils % 1.3 % (0-4.4); Hematocrit 42.4 % (36.0-45.0); Lymphocytes % 28.4 % (15.3-44.8); MCH 29.6 pg (27.0-35.0); MCV 88.9 fL (80-100); MPV 8.8 fL (7.6-11.3); Monocytes % 6.7 % (3.3-12.3); RBC Red Blood Cell Count 4.78 M/uL (3.86-4.86)
[2018-03-23 20:04] LABS: Protime INR 1.04
[2018-03-23 20:18] LABS: Albumin 3.6 g/dL (3.4-5.0); Bilirubin Direct 0.2 mg/dL (0-0.2); Bilirubin Total 0.5 mg/dL (0.2-1.0); CKMB Creatine Kinase MB 1.1 ng/mL (0.3-3.6); Potassium 3.6 mmol/L (3.5-5.1); Protein, Total 7.9 g/dL (6.4-8.2)
--- NOTE | 2018-03-23 20:24 | RAD REPORT ---
EXAM DESCRIPTION: RAD - Chest Single View - 03/23/2018 8:07 pm CLINICAL HISTORY: CHEST PAIN Chest pain. COMPARISON: Chest Single View dated 03/20/2018; CHEST SINGLE VIEW dated 08/19/2012; CHEST SINGLE VIEW dated 01/19/2012; CHEST PA AND LAT 2 VIEW dated 03/28/2010 FINDINGS: Portable technique limits examination quality. The lungs are grossly clear. The heart is normal in size. No displaced fractures. IMPRESSION: No acute intrathoracic process suspected.
[2018-03-23] MEDS ORDERED: NITROGLYCERIN 0.4 MG/TAB SL ONE (20:38)
[2018-03-23] MEDS ORDERED: NA CHLORIDE 0.9% 500 ML ONE (20:38)
[2018-03-23] MEDS ORDERED: ENOXAPARIN 100 MG/ML SYR SQ ONE (20:53)
--- NOTE | 2018-03-23 21:10 | ER ---
Nurse's Notes [facility] Name: Laura Khanna Age: 68 yrs Sex: Female : 1950 Arrival Date: 03/23/2018 Time: 19:25 Bed 14 Private MD: Diagnosis: Chest pain, unspecified Presentation: 03/23 19:25 Presenting complaint: EMS states: Pt was released from here this morning, had a stent tl2 placed yesterday by Dr. Almanzar, diagnosed with bundle branch block. 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 Denies shortness of breath. Transition of care: patient was not received from another setting of care. Onset of symptoms was March 23, 2018 at 06:30. Risk Assessment: Do you want to hurt yourself or someone else? Patient reports no desire to harm self or others. Initial Sepsis Screen: Does the patient meet any 2 criteria? No. Patient's initial sepsis screen is negative. Does the patient have a suspected source of infection? No. Patient's initial sepsis screen is negative. Care prior to arrival: Medication(s) given: ASA, 325 mg, IV initiated. 20 GA, in the left wrist, Glucose check: 185. 19:25 Method Of Arrival: EMS: [facility] tl2 19:25 Acuity: ZACARIAS 2 tl2 Triage Assessment: 19:32 General: Appears in no apparent distress. uncomfortable, Behavior is calm, cooperative, tl2 appropriate for age. Pain: Complains of pain in chest Pain does not radiate. Pain currently is 9 out of 10 on a pain scale. Quality of pain is described as pressure, Is intermittent. Neuro: Level of Consciousness is awake, alert, obeys commands, Oriented to person, place, time, situation. Cardiovascular: Rhythm is sinus rhythm. Respiratory: Airway is patent Respiratory effort is even, unlabored, Respiratory pattern is regular, symmetrical. GI: No signs and/or symptoms were reported involving the gastrointestinal system. : No signs and/or symptoms were reported regarding the genitourinary system. Derm: Skin is pink, warm \T\ dry. Historical: - Allergies: 19:32 Iodine; tl2 19:32 Levaquin; tl2 19:32 PENICILLINS; tl2 - Home Meds: 19:32 citalopram oral [Active]; Lantus 100 unit/mL Sub-Q soln [Active]; Levothroid 75 mcg tl2 Oral tab 1 tab once daily [Active]; levothyroxine oral [Active]; metformin 1,000 mg Oral tab 1 tab 2 times per day [Active]; Metformin Oral [Active]; metoprolol tartrate 50 mg Oral tab once daily [Active]; Metoprolol Tartrate Oral [Active]; omeprazole 40 mg Oral cpDR 1 cap once daily [Active]; valsartan Oral [Active]; - PMHx: 19:32 Diabetes - IDDM; Diabetes - NIDDM; Hypertension; Hypothyroidism; tl2 - PSHx: 19:32 Heart stents; tl2 - Immunization history:: Adult Immunizations up to date. - Social history:: Smoking status: Patient/guardian denies using tobacco. - Ebola Screening: : No symptoms or risks identified at this time. Screenin:55 Abuse screen: Denies threats or abuse. Nutritional screening: No deficits noted. tl2 Tuberculosis screening: No symptoms or risk factors identified. Fall Risk None identified. Assessment: 19:35 General: see triage assessment. tl2 19:35 Pain: Pain began 1 hour ago. tl2 20:40 Reassessment: Patient appears in no apparent distress at this time. No changes from tl2 previously documented assessment. Patient and/or family updated on plan of care and expected duration. Pain level reassessed. Patient is alert, oriented x 3, equal unlabored respirations, skin warm/dry/pink. 21:12 Reassessment: Patient appears in no apparent distress at this time. Pt states her pain tl2 is better after 1 nitro and she states that she does not want another one. 22:00 Reassessment: Patient appears in no apparent distress at this time. Patient and/or tl2 family updated on plan of care and expected duration. Pain level reassessed. Patient is alert, oriented x 3, equal unlabored respirations, skin warm/dry/pink. 23:30 Reassessment: Patient appears in no apparent distress at this time. Patient and/or tl2 family updated on plan of care and expected duration. Pain level reassessed. Patient is alert, oriented x 3, equal unlabored respirations, skin warm/dry/pink. Pt stable and ready for transport. Vital Signs: 19:32 BP 141 / 96; Pulse 77; Resp 18; Pulse Ox 96% on R/A; Weight 100.24 kg; Height 5 ft. 5 tl2 in. (165.10 cm); Pain 9/10; 20:40 BP 147 / 68; Pulse 72; Resp 13; Pulse Ox 95% on R/A; tl2 22:27 BP 142 / 63; Pulse 65; Resp 16; Pulse Ox 96% on R/A; mt 19:32 Body Mass Index 36.78 (100.24 kg, 165.10 cm) tl2 ED Course: 19:25 Patient arrived in ED. tl2 19:27 Triage completed. tl2 19:29 EKG done, by ED staff, reviewed by Chicho Lanza MD. Maintain EMS IV. Dressing intact. mt Good blood return noted. Site clean \T\ dry. Gauge \T\ site: 20 Gauge Left Forearm. 19:30 Maintain EMS IV. mt 19:32 Arm band placed on right wrist. tl2 19:40 Patient maintains SpO2 saturation greater than 95% on room air. tl2 19:40 Patient has correct armband on for positive identification. Placed in gown. Bed in low tl2 position. Call light in reach. Side rails up X2. 19:40 nuclear monitoring technician on. Pulse ox on. NIBP on. tl2 19:41 Laura Botello RN is Primary Nurse. tl2 19:45 XRAY Chest (1 view) In Process Unspecified. EDMS 20:03 Chicho Ernandez PA is PHCP. cp 20:03 Chicho Lanza MD is Attending Physician. cp 21:09 Billy Khan MD is Hospitalizing Provider. cp 23:30 No provider procedures requiring assistance completed. Patient admitted, IV remains in tl2 place. Administered Medications: 20:39 Drug: Nitroglycerin 0.4 mg Route: Sublingual; tl2 23:50 Follow up: Response: No adverse reaction; Pain is decreased tl2 20:39 Drug: NS 0.9% 500 ml Route: IV; Rate: bolus; Site: left wrist; tl2 23:50 Follow up: IV Status: Completed infusion; IV Intake: 500ml tl2 21:12 Drug: Lovenox 1 mg/kg Route: Sub-Q; Site: right lower abdomen; tl2 23:50 Follow up: Response: No adverse reaction tl2 23:49 Not Given (Pt admitted upstairs at 2330): Rocephin 1 grams IV at bolus once; Given slow tl2 IV push per pharmacy instructions Intake: 23:50 IV: 500ml; Total: 500ml. tl2 Outcome: 21:10 Decision to Hospitalize by Provider. cp 23:30 Admitted to Med/surg accompanied by tech, via wheelchair, room 212, with chart, Report tl2 called to IRINA Bartlett 23:30 Condition: stable 23:30 Instructed on the need for admit. 23:51 Patient left the ED. tl2 Signatures: Dispatcher [employer] EDMS Chicho Ernandez PA PA cp Knox, Taylor, RN RN tl2 Annabel Osorio tx
--- NOTE | 2018-03-23 21:10 | EDPHYS ---
Physician Documentation [facility] Name: Laura Khanna Age: 68 yrs Sex: Female : 1950 Arrival Date: 03/23/2018 Time: 19:25 Bed 14 Private MD: ED Physician Chicho Lanza HPI: 03/23 19:45 This 68 yrs old Female presents to ER via EMS with complaints of Chest cp Pressure. 19:45 The patient or guardian reports chest pain that is located primarily in the anterior cp chest wall, bilaterally. 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 19:45 The pain does not radiate. The chest pain is described as a pressure. Duration: The cp patient or guardian reports a single episode, that is still ongoing, but improving. Historical: - Allergies: 19:32 Iodine; tl2 19:32 Levaquin; tl2 19:32 PENICILLINS; tl2 - Home Meds: 19:32 citalopram oral [Active]; Lantus 100 unit/mL Sub-Q soln [Active]; Levothroid 75 mcg tl2 Oral tab 1 tab once daily [Active]; levothyroxine oral [Active]; metformin 1,000 mg Oral tab 1 tab 2 times per day [Active]; Metformin Oral [Active]; metoprolol tartrate 50 mg Oral tab once daily [Active]; Metoprolol Tartrate Oral [Active]; omeprazole 40 mg Oral cpDR 1 cap once daily [Active]; valsartan Oral [Active]; - PMHx: 19:32 Diabetes - IDDM; Diabetes - NIDDM; Hypertension; Hypothyroidism; tl2 - PSHx: 19:32 Heart stents; tl2 - Immunization history:: Adult Immunizations up to date. - Social history:: Smoking status: Patient/guardian denies using tobacco. - Ebola Screening: : No symptoms or risks identified at this time. ROS: 19:52 Constitutional: Negative for body aches, chills, fever, poor PO intake. cp 19:52 Eyes: Negative for injury, pain, redness, and discharge. cp 19:52 ENT: Negative for drainage from ear(s), ear pain, sore throat, difficulty swallowing, difficulty handling secretions. 19:52 Cardiovascular: Positive for chest pain, of the anterior chest, Negative for edema, palpitations. 19:52 Respiratory: Negative for cough, shortness of breath, wheezing. 19:52 Abdomen/GI: Negative for abdominal pain, nausea, vomiting, and diarrhea, constipation, black/tarry stool, rectal bleeding. 19:52 Back: Negative for pain at rest, pain with movement, radiated pain. 19:52 : Negative for urinary symptoms. 19:52 Skin: Negative for burn, cellulitis. 19:52 Neuro: Negative for altered mental status, dizziness, headache, loss of consciousness, syncope, near syncope, weakness. 19:52 All other systems are negative. Exam: 19:28 ECG was reviewed by the Attending Physician. cp 19:55 Constitutional: The patient appears in no acute distress, alert, awake, cp non-diaphoretic, non-toxic, well developed, well nourished. 19:55 Head/Face: Normocephalic, atraumatic. cp 19:55 Eyes: Periorbital structures: appear normal, Conjunctiva: normal, no exudate, no injection, Sclera: no appreciated abnormality, Lids and lashes: appear normal, bilaterally. 19:55 ENT: External ear(s): are unremarkable, Nose: is normal, Mouth: is normal, Posterior pharynx: is normal, airway is patent, no erythema, no exudate. 19:55 Neck: ROM/movement: is normal, is supple, without pain, no range of motions limitations, no nuchal rigidity. 19:55 Chest/axilla: Inspection: normal, Palpation: is normal, no crepitus, no tenderness. 19:55 Cardiovascular: Rate: normal, Rhythm: regular, Edema: is not appreciated, JVD: is not appreciated. 19:55 Respiratory: the patient does not display signs of respiratory distress, Respirations: normal, no use of accessory muscles, no retractions, no splinting, no tachypnea, labored breathing, is not present, Breath sounds: are clear throughout, no decreased breath sounds, no stridor, no wheezing. 19:55 Abdomen/GI: Inspection: abdomen appears normal, Palpation: abdomen is soft and non-tender, in all quadrants, rebound tenderness, is not appreciated, voluntary guarding, is not appreciated, involuntary guarding, is not appreciated. 19:55 Back: pain, is absent, ROM is normal. 19:55 Skin: cellulitis, is not appreciated, no rash present. 19:55 Neuro: Orientation: to person, place \T\ time. Mentation: lucid, able to follow commands, Cerebellar function: is grossly normal, Motor: moves all fours, strength is normal, Sensation: no obvious gross deficits. Vital Signs: 19:32 BP 141 / 96; Pulse 77; Resp 18; Pulse Ox 96% on R/A; Weight 100.24 kg; Height 5 ft. 5 tl2 in. (165.10 cm); Pain 9/10; 20:40 BP 147 / 68; Pulse 72; Resp 13; Pulse Ox 95% on R/A; tl2 22:27 BP 142 / 63; Pulse 65; Resp 16; Pulse Ox 96% on R/A; mt 19:32 Body Mass Index 36.78 (100.24 kg, 165.10 cm) tl2 MDM: 20:00 Differential diagnosis: abnormal EKG, acute myocardial infarction, acute pericarditis, cp chest wall pain, costochondritis, pleurisy, pneumonia, pneumothorax, pulmonary embolus, stable angina, thoracic aortic disection, unstable angina. 20:03 Patient medically screened. cp 20:45 The patient was not given aspirin in the Emergency Department. Administered by EMS. cp 20:45 Data reviewed: vital signs, nurses notes, lab test result(s), EKG, radiologic studies, cp plain films. Test interpretation: by ED physician or midlevel provider: ECG, plain radiologic studies. 20:48 Physician consultation: Bienvenido Nguyen MD was called at 20:48, was contacted at 20:48, cp regarding consult, patient's condition, would like admission per Dr. Billy Khan MD. 20:59 Physician consultation: Billy Khan MD was called at 21:00, was contacted at 21:00, cp regarding admission, to the telemetry unit. 03/23 19:36 Order name: Basic Metabolic Panel; Complete Time: 20:21 tl2 03/23 19:36 Order name: CBC with Diff; Complete Time: 20:21 tl2 03/23 20:30 Interpretation: Normal except: WBC 10.4; PLT 299. cp 03/23 19:36 Order name: Ckmb; Complete Time: 20:21 tl2 03/23 19:36 Order name: CPK; Complete Time: 20:21 tl2 03/23 19:36 Order name: LFT's; Complete Time: 20:21 tl2 03/23 19:36 Order name: Magnesium; Complete Time: 20:21 tl2 03/23 19:36 Order name: NT PRO-BNP; Complete Time: 20:21 tl2 03/23 19:36 Order name: PT-INR; Complete Time: 20:21 tl2 03/23 19:36 Order name: Ptt, Activated; Complete Time: 20:21 tl2 03/23 19:36 Order name: Troponin (emerg Dept Use Only); Complete Time: 20:21 tl2 03/23 20:21 Interpretation: Abnormal: TROPED 0.06. cp 03/23 22:12 Order name: Urine Dipstick--Ancillary (enter results) ms 03/23 22:12 Order name: Urine Dipstick-Ancillary; Complete Time: 23:45 EDMS 03/23 22:25 Order name: Basic Metabolic Panel [facility] 03/23 22:25 Order name: Basic Metabolic Panel [facility] 03/23 19:36 Order name: XRAY Chest (1 view); Complete Time: 20:30 tl2 03/23 19:36 Order name: EKG; Complete Time: 19:37 tl2 03/23 22:23 Order name: CONS Physician Consult [facility] 03/23 22:25 Order name: Regular [facility] 03/23 22:25 Order name: CBC with Automated Diff [facility] 03/23 22:25 Order name: CBC with Automated Diff [facility] 03/23 22:25 Order name: Troponin I [facility] 03/23 22:25 Order name: Troponin I [facility] 03/23 22:25 Order name: Troponin I [facility] 03/23 22:59 Order name: Urine Culture [facility] 03/23 22:59 Order name: Urine Microscopic Only [facility] 03/23 23:25 Order name: Urine Microscopic Only; Complete Time: 23:45 EDMS 03/23 19:36 Order name: Cardiac monitoring; Complete Time: 19:42 tl2 03/23 19:36 Order name: EKG - Nurse/Tech; Complete Time: 19:42 tl2 03/23 19:36 Order name: IV Saline Lock; Complete Time: 19:42 tl2 03/23 19:36 Order name: Labs collected and sent; Complete Time: 19:42 tl2 03/23 19:36 Order name: O2 Per Protocol; Complete Time: 19:42 tl2 03/23 19:36 Order name: O2 Sat Monitoring; Complete Time: 19:42 tl2 03/23 19:36 Order name: Urine Dipstick-Ancillary (obtain specimen); Complete Time: 21:13 tl2 16 22:25 Order name: EKG Electrocardiogram EDMS 03/23 22:25 Order name: EKG Electrocardiogram EDMS 03/23 22:25 Order name: EKG Electrocardiogram EDMS 03/23 22:25 Order name: EKG Electrocardiogram EDMS EC:28 Rate is 71 beats/min. Rhythm is regular. MD interval is normal. QRS interval is cp prolonged at 128 msec. QT interval is normal. T waves are Inverted in lead aVL. Interpreted by me. Reviewed by me. Administered Medications: 20:39 Drug: Nitroglycerin 0.4 mg Route: Sublingual; tl2 23:50 Follow up: Response: No adverse reaction; Pain is decreased tl2 20:39 Drug: NS 0.9% 500 ml Route: IV; Rate: bolus; Site: left wrist; tl2 23:50 Follow up: IV Status: Completed infusion; IV Intake: 500ml tl2 21:12 Drug: Lovenox 1 mg/kg Route: Sub-Q; Site: right lower abdomen; tl2 23:50 Follow up: Response: No adverse reaction tl2 23:49 Not Given (Pt admitted upstairs at 2330): Rocephin 1 grams IV at bolus once; Given slow tl2 IV push per pharmacy instructions Disposition: 03/24 07:28 Co-signature as Attending Physician, Chicho Lanza MD I agree with the assessment and [facility] plan of care. Disposition: 03/23/18 21:10 Hospitalization ordered by Billy Khan for Observation. Preliminary diagnosis is Chest pain, unspecified. - Bed requested for Telemetry/MedSurg (observation). - Status is Observation. tl2 - Condition is Stable. - Problem is new. - Symptoms have improved. UTI on Admission? No Signatures: Dispatcher [employer] EDIL Vandana Mccarty RN RN mw Anderson, Corey, MD MD cha Page, Corey, PA PA cp Knox, Taylor, RN RN tl2 Corrections: (The following items were deleted from the chart) 03/23 21:36 21:10 Hospitalization Ordered by Billy Khan MD for Observation. Preliminary diagnosis mw is Chest pain, unspecified. Bed requested for Telemetry/MedSurg (observation). Status is Observation. Condition is Stable. Problem is new. Symptoms have improved. UTI on Admission? No. cp 23:51 21:36 03/23/2018 21:10 Hospitalization Ordered by Billy Khan MD for Observation. tl2 Preliminary diagnosis is Chest pain, unspecified. Bed requested for Telemetry/MedSurg (observation). Status is Observation. Condition is Stable. Problem is new. Symptoms have improved. UTI on Admission? No. mw
[2018-03-23] MEDS ORDERED: ACETAMINOPHEN 500 MG TAB PO PRN (22:22)
[2018-03-23] MEDS ORDERED: ONDANSETRON 4 MG/2 ML VIAL IV PRN (22:22)
[2018-03-23 22:31] LABS: Urine Blood NEGATIVE (NEG); Urine Glucose NEGATIVE (NEG); Urine Protein NEGATIVE (NEG); Urine pH 5.5 (5.0-7.0)
[2018-03-23 23:25] LABS: Urine Bacteria LOADED /HPF (<20); Urine Culture Reflex Order NOT NEEDED; Urine RBC NONE SEEN /HPF (NONE SEEN)
[2018-03-24 00:28] VITALS: BMI 37.1
[2018-03-24 04:21] LABS: Absolute Lymphocytes (CBC) 2.5 K/uL (0.7-4.9); Absolute Monocytes 0.5 K/uL (0.1-1.3); Absolute Neutrophil 3.7 K/uL (1.8-8.0); Basophils % 0.7 % (0-1.3); Eosinophils % 1.5 % (0-4.4); Hematocrit 38.7 % (36.0-45.0); Lymphocytes % 36.7 % (15.3-44.8); MCV 88.8 fL (80-100); MPV 8.9 fL (7.6-11.3); Monocytes % 7.3 % (3.3-12.3); RBC Red Blood Cell Count 4.35 M/uL (3.86-4.86)
[2018-03-24 04:48] VITALS: O2SAT 96
[2018-03-24] MEDS ORDERED: PNEUMOCOCCAL VACCINE 0.5 ML IMVAC ONE (06:00)
--- NOTE | 2018-03-24 07:03 | EKG ---
Test Date: 2018-03-23 Test Time: 19:21:34 Sr Vice President: SHERRILL MEASUREMENT RESULTS: Intervals: Rate: 71 OH: 138 QRSD: 128 QT: 430 QTc: 467 Jermyn: P: 35 OH: 138 QRS: -73 T: 86 INTERPRETIVE STATEMENTS: Normal sinus rhythm Left axis deviation Left bundle branch block Abnormal ECG Compared to ECG 03/20/2018 12:48:58 No significant changes Electronically Signed On 03-24-18 07:01:31 CDT by Bienvenido Nguyen
[2018-03-24] MEDS ORDERED: ENOXAPARIN 100 MG/ML SYR SQ SCH (09:00)
[2018-03-24] MEDS ORDERED: PRASUGREL (EFFIENT) 10 MG TAB PO SCH (09:00)
[2018-03-24] MEDS ORDERED: CEFTRIAXONE 1 GM/NS 50 ML 1 GM/50 ML BAG IV SCH (09:00)
[2018-03-24] MEDS ORDERED: AMLODIPINE 5 MG TAB PO SCH (09:00)
[2018-03-24] MEDS ORDERED: INSULIN GLARGINE 100 UNITS/ML SQ SCH (09:00)
[2018-03-24] MEDS ORDERED: METOPROLOL TAR 50 MG TAB PO SCH (09:00)
[2018-03-24] MEDS ORDERED: ASPIRIN 81 MG CHEWABLE TABLET PO SCH (09:00)
[2018-03-24] MEDS ORDERED: ASPIRIN EC 81 MG TAB PO SCH (09:00)
--- NOTE | 2018-03-24 12:40 | CON ---
Date of Consultation: 03/24/2018 Reason For Consultation: Chest pain. History Of Present Illness: Ms. Khanna is a 68-year-old white woman. She was just discharged from [facility] 2 days ago after an LAD stent by Dr. Almanzar. At that time, she had acute coronary syndro me. Her circumflex, RCA and all other vessels were normal except for the LAD. She had a 70% stenosi s with excellent result with 0% residual. Went home and the day after she came in with a sharp stabb ing chest pain in the left side of her chest anteriorly, nonradiating. No nausea, vomiting, diaphore sis, PND, orthopnea, pedal edema, palpitations, or syncope. Chest x-ray was negative. EKG showed le ft bundle-branch block which is chronic. Her troponin was still slightly elevated from her previous admission at 0.06. She was hypertensive at 196/81, glucose was 207, slightly elevated liver function enzymes and a definite UTI by urinalysis. BNP was negative. Allergies: INCLUDE IODINE, PENICILLIN, LEVAQUIN. Review of Systems: Positive for anxiety. Social History: Negative. Family History: Noncontributory. Medications: At home include aspirin, Prilosec, Lipitor, insulin, Norvasc, Effient, metformin, and L opressor. Past Medical History: Includes CAD, diabetes, hypertension, dyslipidemia, hypothyroidism, gastroesop hageal reflux disease. Physical Examination: General: She is an obese woman, in no acute distress. Vital Signs: Blood pressure was 126/81. HEENT: Negative. Neck: Supple without any bruit, lymphadenopathy, JVD, or thyromegaly. Chest: clear to auscultation and percussion. Cardiac: Revealed a regular rhythm and rate with an S4 gallops. No murmurs or rubs. Abdomen: Obese, but benign. Extremities: Revealed no clubbing, cyanosis, or edema. Diagnostic Data: As stated earlier. Impression And Plan: Atypical chest pain, most likely musculoskeletal or gastric and maybe even rela alon to anxiety. Her EKG showed left bundle-branch block. I think if her stent occluded only 1 day a fter placement, she would be much sicker and she would have an acute coronary event. This does not a ppear to be the case. We are not dealing with acute coronary syndrome. I am not too concerned about her troponin elevation considering her recent stent. We may be dealing with multiple issues, but I think she needs something for anxiety. She needs something for her UTI. She obviously have an infec tion. Her liver function enzyme needs to be slowly observed and rechecked down the road. She was ve ry hypertensive at 196/81, and I would like to increase her beta-martha before she goes home. I wou ld like to get another echocardiogram, although she just had one recently to make sure there is no ef fusion or any new wall motion abnormalities. Her diabetes is poorly controlled. Her dyslipidemia is well controlled on Lipitor. She has hypothyroidism, on Synthroid and gastroesophageal reflux diseas e, on Prilosec. If her echo is normal, she can go home on an antiUTI regimen and a higher dose of be ta martha, and we will see her in the office in 2 weeks. ALDEN/ALFRED Voice ID: [id number] Report ID: [id number]
[2018-03-24 14:28] VITALS: BP 142/63; TEMP 97.6
--- NOTE | 2018-03-24 17:14 | EKG ---
Test Date: 2018-03-24 Test Time: 09:59:40 Loan Interviewer: BHANU MEASUREMENT RESULTS: Intervals: Rate: 74 MO: 148 QRSD: 122 QT: 414 QTc: 459 Almyra: P: 63 MO: 148 QRS: -58 T: 95 INTERPRETIVE STATEMENTS: Normal sinus rhythm Left axis deviation Left bundle branch block Abnormal ECG Compared to ECG 03/23/2018 19:21:34 No significant changes Electronically Signed On 03-24-18 17:11:06 CDT by Bienvenido Nguyen
[2018-03-24] MEDS ORDERED: ATORVASTATIN 80 MG TAB PO SCH (21:00)
[2018-03-24] MEDS ORDERED: IRBESARTAN 150 MG TAB PO SCH (21:00)
[2018-03-25] MEDS ORDERED: LEVOTHYROXINE SOD 0.075 MG TAB PO SCH (06:00)
[2018-03-25] MEDS ORDERED: PANTOPRAZOLE 40MG TABLET PO SCH (06:30)
--- NOTE | 2018-03-27 08:08 | ECHO ---
HEIGHT: 5 ft 5 in WEIGHT: 223 lb 7 oz DATE OF STUDY: 03/24/[address]: Bienvenido Nguyen MD 2-DIMENSIONAL: YES M.MODE: YES DOPPLER: YES COLOR FLOW: YES TDS: NO PORTABLE: NO DEFINITY: NO BUBBLE STUDY: NO DIAGNOSIS: CHEST PAIN CARDIAC HISTORY: CATHERIZATION: YES SURGERY: NO PROSTHETIC VALVE: NO PACEMAKER: NO MEASUREMENTS (cm) DIASTOLIC (NORMALS) SYSTOLIC (NORMALS) IVSd 1.0 (0.6-1.2) LA Diam 3.9 (1.9-4.0) LVEF 54% LVIDd 4.0 (3.5-5.7) LVIDs 2.9 (2.0-3.5) %FS 27% LVPWd 1.0 (0.6-1.2) Ao Diam 2.5 (2.0-3.7) 2 DIMENSIONAL ASSESSMENT: RIGHT ATRIUM: NORMAL LEFT ATRIUM: NORMAL RIGHT VENTRICLE: NORMAL LEFT VENTRICLE: NORMAL TRICUSPID VALVE: NORMAL MITRAL VALVE: NORMAL PULMONIC VALVE: NORMAL AORTIC VALVE: NORMAL PERICARDIAL EFFUSION: NONE AORTIC ROOT: NORMAL LEFT VENTRICULAR WALL MOTION: NORMAL DOPPLER/COLOR FLOW: NORMAL COMMENTS: NORMAL 2D ECHOCARDIOGRAM WITH DOPPLER. NO WALL MOTION ABNORMALITY. NO EFFUSION. TECHNOLOGIST: Penny MURILLO
== END 2018-03-24 16:40 | disposition home or self-care (01) ==
LOC: ER 19:22 → ERHOLD 22:21 → 2ND 22:55
PROVIDERS: ADMIT Internal Medicine; ATTEND Internal Medicine
DX: R07.89 Other chest pain (principal); N39.0 Urinary tract infection, site not specified; I25.10 Atherosclerotic heart disease of native coronary artery without angina pectoris; E11.9 Type 2 diabetes mellitus without complications; I10 Essential (primary) hypertension; E78.5 Hyperlipidemia, unspecified; E03.9 Hypothyroidism, unspecified; K21.9 Gastro-esophageal reflux disease without esophagitis; E66.9 Obesity, unspecified; Z68.37 Body mass index [BMI] 37.0-37.9, adult; Z95.5 Presence of coronary angioplasty implant and graft; Z88.0 Allergy status to penicillin; Z23 Encounter for immunization
CPT/HCPCS: 36415; 71045; 80048 ×2; 80076; 82550; 82553; 82962 ×2; 83735; 83880; 84484 ×3; 85025 ×2; 85610; 85730; 87077; 87086; 87088; 87186; 90670; 93005 ×2; 93306; G0009; G0378 ×2; J1650 ×2; 81003; 81015; 96360; 96361; 96372; 99285; J0696

== ENCOUNTER 2018-04-22 14:08 | Observation (INO) | payer OTHER ==
[2018-04-22] MEDS ORDERED: ASPIRIN 81 MG CHEWABLE TABLET ONE (15:00)
[2018-04-22] MEDS ORDERED: NITROGLYCERIN 0.4 MG/TAB SL ONE (15:01)
[2018-04-22 15:26] LABS: Absolute Lymphocytes (CBC) 1.7 K/uL (0.7-4.9); Absolute Monocytes 0.5 K/uL (0.1-1.3); Absolute Neutrophil 5.9 K/uL (1.8-8.0); Basophils % 0.5 % (0-1.3); Eosinophils % 2.3 % (0-4.4); Hematocrit 39.9 % (36.0-45.0); Lymphocytes % 20.3 % (15.3-44.8); MCH 29.9 pg (27.0-35.0); MPV 8.6 fL (7.6-11.3); Monocytes % 6.4 % (3.3-12.3); RBC Red Blood Cell Count 4.53 M/uL (3.86-4.86)
[2018-04-22 15:45] LABS: ALT/SGPT 51 U/L (12-78); AST/SGOT 36 U/L (15-37); Albumin 3.3 g/dL (3.4-5.0); Alkaline Phosphatase 71 U/L (45-117); BUN Blood Urea Nitrogen 12 mg/dL (7-18); Bicarbonate 27 mmol/L (21-32); Bilirubin Direct 0.1 mg/dL (0-0.2); Bilirubin Total 0.4 mg/dL (0.2-1.0); Creatine Phosphokinase 32 U/L (26-192); Glucose Level 185 mg/dL (74-106); Magnesium 1.7 mg/dL (1.8-2.4); NT PRO-BNP 105 pg/mL (<125); Potassium 4.2 mmol/L (3.5-5.1); Protein, Total 7.4 g/dL (6.4-8.2); Sodium Level 139 mmol/L (136-145); Troponin (Emerg Dept Use Only) < 0.02 ng/mL (0.0-0.045)
[2018-04-22 15:56] LABS: Urine Blood 1+ (NEG); Urine Glucose TRACE (NEG); Urine Protein NEGATIVE (NEG)
[2018-04-22 16:12] LABS: Urine Bacteria 20-50 /HPF (<20); Urine Culture Reflex Order REFLEXED; Urine RBC <5 /HPF (NONE SEEN)
--- NOTE | 2018-04-22 16:30 | RAD REPORT ---
EXAM DESCRIPTION: Pavel Single View04/22/2018 4:25 pm CLINICAL HISTORY: Chest pain COMPARISON: March 2018 FINDINGS: The lungs appear clear of acute infiltrate. The heart is normal size IMPRESSION: No acute abnormalities displayed
--- NOTE | 2018-04-22 16:35 | ER ---
Nurse's Notes [facility] Name: Laura Khanna Age: 68 yrs Sex: Female : 1950 Arrival Date: 04/22/2018 Time: 14:11 Bed 3 Private MD: Billy Khan R Diagnosis: Chest Pain;Unstable Angina Presentation: 04/22 14:20 Presenting complaint: Patient states: episodic chest pain and dizziness that began last aa5 night. Pt states "I got a heart stent about [address] Almanzar". 14:20 Transition of care: patient was not received from another setting of care. Onset of aa5 symptoms was April 2018. Risk Assessment: Do you want to hurt yourself or someone else? Patient reports no desire to harm self or others. Initial Sepsis Screen: Does the patient meet any 2 criteria? No. Patient's initial sepsis screen is negative. Does the patient have a suspected source of infection? No. Patient's initial sepsis screen is negative. Care prior to arrival: None. 14:20 Method Of Arrival: Ambulatory aa5 14:20 Acuity: ZACARIAS 2 aa5 Historical: - Allergies: 14:20 PENICILLINS; aa5 14:20 Levaquin; aa5 14:20 Iodine; aa5 - PMHx: 14:20 Diabetes - IDDM; Diabetes - NIDDM; Hypertension; Hypothyroidism; aa5 - PSHx: 14:20 Heart stents; aa5 - Immunization history:: Adult Immunizations up to date. - Ebola Screening: : No symptoms or risks identified at this time. - Social history:: Smoking status: Patient/guardian denies using tobacco. - Family history:: not pertinent. - Hospitalizations: : No recent hospitalization is reported. Screenin:17 Abuse screen: Denies threats or abuse. Denies injuries from another. Nutritional ch screening: No deficits noted. Tuberculosis screening: No symptoms or risk factors identified. Fall Risk None identified. Assessment: 14:55 Reassessment: Patient appears in no apparent distress at this time. Patient and/or ch family updated on plan of care and expected duration. Pain level reassessed. Patient is alert, oriented x 3, equal unlabored respirations, skin warm/dry/pink. General: Appears in no apparent distress. comfortable, Behavior is calm, cooperative, appropriate for age. Pain: Complains of pain in chest Pain does not radiate. Pain currently is 6 out of 10 on a pain scale. Pain began suddenly. 14:55 Cardiovascular: Heart tones S1 S2 present Capillary refill < 3 seconds in bilateral ch fingers toes Clubbing of nail beds is absent Pulses are all present. Edema is absent. Respiratory: Airway is patent Respiratory effort is even, unlabored. 17:12 Reassessment: Patient appears in no apparent distress at this time. Patient and/or ch family updated on plan of care and expected duration. Pain level reassessed. Patient is alert, oriented x 3, equal unlabored respirations, skin warm/dry/pink. Patient states feeling better. Patient states symptoms have improved. Vital Signs: 14:21 BP 169 / 72; Pulse 76; Resp 16 S; Pulse Ox 96% on R/A; aa5 15:17 BP 142 / 78; Pulse 81; Resp 16; Pulse Ox 99% on R/A; ch 17:12 BP 140 / 66; Pulse 68; Resp 14; Temp 98.1; Pulse Ox 97% on R/A; Pain 0/10; ch ED Course: 14:11 Patient arrived in ED. mr 14:12 Billy Khan MD is Private Physician. mr 14:20 Arm band placed on Patient placed in an exam room, on a stretcher. aa5 14:20 Patient has correct armband on for positive identification. Placed in gown. Bed in low aa5 position. Call light in reach. Side rails up X2. passenger tire builder on. Pulse ox on. NIBP on. 14:31 Triage completed. aa5 14:31 Wilfredo Castillo MD is Attending Physician. wa 15:15 Leslie Villa, IRINA is Primary Nurse. ch 15:17 No apparent distress. Resting quietly. ch 15:17 Inserted saline lock: 20 gauge in right in left forearm, using aseptic technique. Blood ch collected. 16:25 XRAY Chest (1 view) In Process Unspecified. EDMS 16:33 Billy Khan MD is Hospitalizing Provider. wa 17:12 Warm blanket given. ch 17:12 No provider procedures requiring assistance completed. Patient admitted, IV remains in ch place. Patient maintains SpO2 saturation greater than 95% on room air. Administered Medications: 15:00 Drug: Aspirin Chewable Tablet 162 mg Route: PO; ch 16:58 Follow up: Response: No adverse reaction; Marked relief of symptoms 15:00 Drug: Nitroglycerin 0.4 mg Route: Sublingual; 16:57 Follow up: Response: No adverse reaction 16:49 CANCELLED (wrong order): Rocephin - (cefTRIAXone) 1 grams IVPB once over 30 mins; (mix ch in 50 mL NS) 16:57 Drug: Lovenox 100 mg Route: Sub-Q; Site: right upper abdomen; 16:59 Follow up: Response: No adverse reaction; Marked relief of symptoms 16:57 Drug: Rocephin 1 grams Route: IV; Rate: calculated rate; Site: left forearm; 17:14 Follow up: IV Status: Completed infusion ch Outcome: 16:34 Decision to Hospitalize by Provider. ct 17:12 Admitted to Med/surg accompanied by tech, via wheelchair. 17:12 Condition: stable 17:12 Instructed on the need for admit. 17:52 Patient left the ED. Signatures: Dispatcher [employer] Leslie Gibson RN RN ch Rivera, Maria mr Calderon, Audri, RN RN aa5 Wilfredo Castillo MD MD ct
--- NOTE | 2018-04-22 16:35 | EDPHYS ---
Physician Documentation [facility] Name: Laura Khanna Age: 68 yrs Sex: Female : 1950 Arrival Date: 04/22/2018 Time: 14:11 Bed 3 Private MD: Billy Khan R ED Physician Wilfredo Castillo HPI: 04/22 16:19 This 68 yrs old Female presents to ER via Ambulatory with complaints of Chest wa Tightness, Dizziness, Nausea. 16:19 The patient or guardian reports chest pain that is located primarily in the substernal wa area. Onset: last night. The pain radiates to both arms. Associated signs and symptoms: Pertinent positives: dizziness, lightheadedness, nausea, shortness of breath, Pertinent negatives: syncope, vomiting. The chest pain is described as a heaviness, a pressure, squeezing. Duration: The patient or guardian reports a single episode, that lasted 15 minute(s) today has noted dizziness. also chest tightness but milder than last night. h/o stent placed recently. Modifying factors: The symptoms are alleviated by nothing. the symptoms are aggravated by nothing. Severity of pain: At its worst the pain was moderate in the emergency department the pain has improved markedly. The patient has not experienced similar symptoms in the past. The patient has not recently seen a physician. Historical: - Allergies: 14:20 PENICILLINS; aa5 14:20 Levaquin; aa5 14:20 Iodine; aa5 - PMHx: 14:20 Diabetes - IDDM; Diabetes - NIDDM; Hypertension; Hypothyroidism; aa5 - PSHx: 14:20 Heart stents; aa5 - Immunization history:: Adult Immunizations up to date. - Ebola Screening: : No symptoms or risks identified at this time. - Social history:: Smoking status: Patient/guardian denies using tobacco. - Family history:: not pertinent. - Hospitalizations: : No recent hospitalization is reported. ROS: 16:23 Constitutional: Negative for fever, chills, and weight loss, Eyes: Negative for injury, wa pain, redness, and discharge, ENT: Negative for injury, pain, and discharge, Neck: Negative for injury, pain, and swelling, Cardiovascular: Negative for chest pain, palpitations, and edema, Back: Negative for injury and pain, : Negative for injury, bleeding, discharge, and swelling, MS/Extremity: Negative for injury and deformity, Skin: Negative for injury, rash, and discoloration, Neuro: Negative for headache, weakness, numbness, tingling, and seizure, Psych: Negative for depression, anxiety, suicide ideation, homicidal ideation, and hallucinations. 16:23 Respiratory: Positive for shortness of breath, at rest. Negative for cough, orthopnea, sputum production. 16:23 All other systems are negative. Exam: 16:24 Constitutional: This is a well developed, well nourished patient who is awake, alert, wa and in no acute distress. Head/Face: Normocephalic, atraumatic. Eyes: Pupils equal round and reactive to light, extra-ocular motions intact. Lids and lashes normal. Conjunctiva and sclera are non-icteric and not injected. Cornea within normal limits. Periorbital areas with no swelling, redness, or edema. ENT: Nares patent. No nasal discharge, no septal abnormalities noted. Tympanic membranes are normal and external auditory canals are clear. Oropharynx with no redness, swelling, or masses, exudates, or evidence of obstruction, uvula midline. Mucous membranes moist. Neck: Trachea midline, no thyromegaly or masses palpated, and no cervical lymphadenopathy. Supple, full range of motion without nuchal rigidity, or vertebral point tenderness. No Meningismus. Chest/axilla: Normal chest wall appearance and motion. Nontender with no deformity. No lesions are appreciated. Abdomen/GI: Soft, non-tender, with normal bowel sounds. No distension or tympany. No guarding or rebound. No evidence of tenderness throughout. Back: No spinal tenderness. No costovertebral tenderness. Full range of motion. Skin: Warm, dry with normal turgor. Normal color with no rashes, no lesions, and no evidence of cellulitis. MS/ Extremity: Pulses equal, no cyanosis. Neurovascular intact. Full, normal range of motion. Neuro: Awake and alert, GCS 15, oriented to person, place, time, and situation. Cranial nerves II-XII grossly intact. Motor strength 5/5 in all extremities. Sensory grossly intact. Cerebellar exam normal. Normal gait. Psych: Awake, alert, with orientation to person, place and time. Behavior, mood, and affect are within normal limits. 16:24 Cardiovascular: Rate: normal, Rhythm: regular, Pulses: no pulse deficits are appreciated, Heart sounds: normal, Edema: is not appreciated, JVD: is not appreciated. 16:24 ECG was reviewed by the Attending Physician. 16:24 Respiratory: the patient does not display signs of respiratory distress, Respirations: normal, Breath sounds: are clear throughout, Respiratory rate: normal Vital Signs: 14:21 BP 169 / 72; Pulse 76; Resp 16 S; Pulse Ox 96% on R/A; aa5 15:17 BP 142 / 78; Pulse 81; Resp 16; Pulse Ox 99% on R/A; ch 17:12 BP 140 / 66; Pulse 68; Resp 14; Temp 98.1; Pulse Ox 97% on R/A; Pain 0/10; ch MDM: 14:31 Patient medically screened. mi 16:25 Differential diagnosis: h/o stents. DM and HTN. concern for unstable angina. will work wa up and admit. eval by cardiology. EKG shows LBBB. unchanged from past. The patient was given aspirin in the Emergency Department. Data reviewed: vital signs, nurses notes. Test interpretation: by ED physician or midlevel provider: took baby ASA and own plavix prior to arrival. 16:29 Test interpretation: by ED physician or midlevel provider: labs noted for hypoglycemia. wa UA noted for pyuria consistent with UTI. Response to treatment: the patient's symptoms have markedly improved after treatment. Physician consultation: Billy Khan MD was called at 16:32, advised obs placement. consult Dr. Almanzar, cardiology. Admission orders: after a detailed discussion of the patient's condition and case, the admit orders are written by me. 16:35 Test interpretation: by ED physician or midlevel provider: normal CXR. 04/22 14:49 Order name: Basic Metabolic Panel; Complete Time: 16:28 04/22 14:49 Order name: CBC with Diff; Complete Time: 16:28 04/22 14:49 Order name: CPK; Complete Time: 16:28 04/22 14:49 Order name: LFT's; Complete Time: 16:28 04/22 14:49 Order name: Magnesium; Complete Time: 16:28 04/22 14:49 Order name: NT PRO-BNP; Complete Time: 16:28 04/22 14:49 Order name: PT-INR; Complete Time: 16:28 mi 04/22 14:49 Order name: Troponin (emerg Dept Use Only); Complete Time: 16:28 mi 04/22 14:49 Order name: Urine Microscopic Only; Complete Time: 16:28 04/22 15:40 Order name: Urine Dipstick--Ancillary (enter results); Complete Time: 16:27 04/22 16:14 Order name: Urine Culture EDMS 04/22 16:40 Order name: Basic Metabolic Panel EDMS 04/22 16:40 Order name: Basic Metabolic Panel EDMS 04/22 16:40 Order name: CBC with Automated Diff EDMS 04/22 14:49 Order name: XRAY Chest (1 view); Complete Time: 16:35 mi 04/22 14:49 Order name: EKG; Complete Time: 14:49 mi 04/22 16:40 Order name: CONS Physician Consult EDRI 04/22 16:40 Order name: Consistent Carb (ADA) 1800 Jayjay EDMS 04/22 16:40 Order name: EKG Electrocardiogram EDRI 04/22 16:40 Order name: EKG Electrocardiogram EDRI 04/22 16:40 Order name: EKG Electrocardiogram EDRI 04/22 16:40 Order name: CBC with Automated Diff EDMS 04/22 16:40 Order name: Troponin I [facility]RI 04/22 16:40 Order name: Troponin I [facility] 04/22 16:40 Order name: Troponin I [facility] 04/22 14:49 Order name: Cardiac monitoring; Complete Time: 15:39 04/22 14:49 Order name: EKG - Nurse/Tech; Complete Time: 15:39 04/22 14:49 Order name: IV Saline Lock; Complete Time: 15:39 04/22 14:49 Order name: Labs collected and sent; Complete Time: 15:39 04/22 14:49 Order name: O2 Sat Monitoring; Complete Time: 15:39 04/22 14:49 Order name: Urine Dipstick-Ancillary (obtain specimen); Complete Time: 15:39 04/22 16:40 Order name: EKG Electrocardiogram EDMS Administered Medications: 15:00 Drug: Aspirin Chewable Tablet 162 mg Route: PO; ch 16:58 Follow up: Response: No adverse reaction; Marked relief of symptoms ch 15:00 Drug: Nitroglycerin 0.4 mg Route: Sublingual; ch 16:57 Follow up: Response: No adverse reaction 16:49 CANCELLED (wrong order): Rocephin - (cefTRIAXone) 1 grams IVPB once over 30 mins; (mix ch in 50 mL NS) 16:57 Drug: Lovenox 100 mg Route: Sub-Q; Site: right upper abdomen; ch 16:59 Follow up: Response: No adverse reaction; Marked relief of symptoms 16:57 Drug: Rocephin 1 grams Route: IV; Rate: calculated rate; Site: left forearm; ch 17:14 Follow up: IV Status: Completed infusion ch Disposition: 04/22/18 16:34 Hospitalization ordered by Billy Khan for Observation. Preliminary diagnosis are Chest Pain, Unstable Angina. - Bed requested for Telemetry/MedSurg (observation). - Status is Observation. ch - Condition is Stable. - Problem is new. - Symptoms have improved. UTI on Admission? Yes Signatures: Dispatcher [employer] EDMS Leslie Villa RN Abby Green ch, RN RN dw Calderon, Audri, RN RN aa5 Wilfredo Castillo MD MD mi Corrections: (The following items were deleted from the chart) 16:48 16:34 Hospitalization Ordered by Billy Khan MD for Observation. Preliminary diagnosis dw is Chest Pain; Unstable Angina. Bed requested for Telemetry/MedSurg (observation). Status is Observation. Condition is Stable. Problem is new. Symptoms have improved. UTI on Admission? Yes. mi 16:49 16:34 Rocephin - (cefTRIAXone) 1 grams IVPB once over 30 mins; (mix in 50 mL NS) ordered. mi 17:52 16:48 04/22/2018 16:34 Hospitalization Ordered by Billy Khan MD for Observation. Preliminary diagnosis is Chest Pain; Unstable Angina. Bed requested for Telemetry/MedSurg (observation). Status is Observation. Condition is Stable. Problem is new. Symptoms have improved. UTI on Admission? Yes. dw
[2018-04-22] MEDS ORDERED: ONDANSETRON 4 MG/2 ML VIAL IV PRN (16:38)
[2018-04-22] MEDS ORDERED: ACETAMINOPHEN 500 MG TAB PO PRN (16:38)
[2018-04-22] MEDS ORDERED: ENOXAPARIN 100 MG/ML SYR SQ ONE (16:57)
[2018-04-22] MEDS ORDERED: CEFTRIAXONE/SWI 1gm 1 GM/10 ML SYR ONE (16:57)
[2018-04-22 18:19] VITALS: BMI 51.1
[2018-04-22] MEDS ORDERED: GLUCAGON 1 MG/VIAL IM PRN ×2 (20:34→20:35)
[2018-04-22] MEDS ORDERED: D50W 25 GM/50 ML SYRINGE IV PRN ×2 (20:34→20:35)
[2018-04-22] MEDS: INSULIN -REGULAR HUMAN 50 UNIT/0.5 ML ML SQ SCH (21:00)
[2018-04-22] MEDS: ATORVASTATIN 80 MG TAB PO SCH (21:14)
[2018-04-22] MEDS: METOPROLOL TAR 50 MG TAB PO SCH (21:15)
[2018-04-22] MEDS: IRBESARTAN 150 MG TAB PO SCH (23:28)
[2018-04-23] MEDS: LEVOTHYROXINE SOD 0.075 MG TAB PO SCH (05:34)
[2018-04-23] MEDS: METOPROLOL TAR 50 MG TAB PO SCH ×2 (05:34→17:36)
[2018-04-23] MEDS ORDERED: INSULIN GLARGINE 100 UNITS/ML SQ SCH (08:00)
[2018-04-23] MEDS: INSULIN -REGULAR HUMAN 50 UNIT/0.5 ML ML SQ SCH ×4 (08:29→20:52)
[2018-04-23] MEDS: AMLODIPINE 5 MG TAB PO SCH (08:30)
[2018-04-23] MEDS: PRASUGREL (EFFIENT) 10 MG TAB PO SCH (08:30)
[2018-04-23] MEDS: ASPIRIN EC 81 MG TAB PO SCH (08:30)
[2018-04-23] MEDS ORDERED: ASPIRIN 81 MG CHEWABLE TABLET PO SCH (09:00)
[2018-04-23] MEDS ORDERED: CEFTRIAXONE/SWI 1gm 1 GM/10 ML SYR IV SCH (17:00)
[2018-04-23] MEDS: IRBESARTAN 150 MG TAB PO SCH (20:51)
[2018-04-23] MEDS: ATORVASTATIN 80 MG TAB PO SCH (20:51)
[2018-04-23 22:04] VITALS: O2SAT 95
[2018-04-23] MEDS: INSULIN GLARGINE 100 UNITS/ML SQ SCH (22:07)
[2018-04-24] MEDS: LEVOTHYROXINE SOD 0.075 MG TAB PO SCH (05:32)
[2018-04-24] MEDS: METOPROLOL TAR 50 MG TAB PO SCH (05:45)
--- NOTE | 2018-04-24 06:56 | EKG ---
Test Date: 2018-04-22 Test Time: 14:37:12 Host/Hostess Head: ANASTASIIA MEASUREMENT RESULTS: Intervals: Rate: 79 LA: 158 QRSD: 124 QT: 408 QTc: 467 [place]: P: 61 LA: 158 QRS: -45 T: 97 INTERPRETIVE STATEMENTS: Normal sinus rhythm Left axis deviation Left bundle branch block Abnormal ECG Compared to ECG 03/24/2018 09:59:40 No significant changes Electronically Signed On 04-24-18 06:51:40 CDT by Bienvenido Nguyen
--- NOTE | 2018-04-24 08:22 | HP ---
Date of Admission: 04/22/2018 Chief Complaint: Recurrent chest pain. History Of Present Illness: A 68-year-old female, who recently had coronary angioplasty, was brought to the emergency room with dizziness and recurrent chest pain. The patient had workup. It was nega tive for myocardial injury. The patient is admitted. The patient denied any history of fever, chill s, or rigors. No history of nausea, vomiting. Past Medical History: Positive for type 2 diabetes requiring insulin. The patient has diagnosis of coronary artery disease and angioplasty, hypertension, hypothyroidism. Past Surgical History: Positive for coronary angioplasty. Family History: Diabetes present. Personal History: Nonsmoker. Home Medicines: Please refer to the chart. Review of Systems: The patient denies any history of fever, chills, rigors. Physical Examination: General: Revealed a 68-year-old obese female. Vital Signs: Normal. HEENT: Negative. Neck: Supple. JVD negative. Chest: Clear. Heart: Regular. Abdomen: Soft, nontender. Extremities: No edema. Neurological: Negative. Laboratory Data: Troponin normal. Chest x-ray, negative. Assessment: 1.Recurrent chest pain. 2.Recent coronary angioplasty. 3.Hypertension. 4.Hypothyroidism. 5.Type 2 diabetes. Plan: The patient does not have any evidence of myocardial injury. The patient has a Cardiology con sultation. The patient is already on Eliquis and metoprolol, which will be continued. She will be p ut on aggressive sliding scale. HOA/ALFRED Voice ID: [id number]
[2018-04-24] MEDS: INSULIN -REGULAR HUMAN 50 UNIT/0.5 ML ML SQ SCH ×2 (08:53→12:53)
[2018-04-24] MEDS: INSULIN GLARGINE 100 UNITS/ML SQ SCH (08:59)
[2018-04-24] MEDS: ASPIRIN EC 81 MG TAB PO SCH (09:01)
[2018-04-24] MEDS: AMLODIPINE 5 MG TAB PO SCH (09:01)
[2018-04-24] MEDS: PRASUGREL (EFFIENT) 10 MG TAB PO SCH (09:04)
--- NOTE | 2018-04-24 12:43 | CON ---
Date of Consultation: 04/23/2018 Reason For Consultation: Dizziness and nausea. History Of Present Illness: Mrs. Khanna is a 68-year-old white woman and I am not really so sure why she was admitted. She did not have any chest pain, but was admitted for dizziness. She has a histo ry of cardiac disease and on March of 2018, she had an LAD stent. Two days later, she came back wit h chest pain, and was discharged as a pleuritic chest pain, and now she is back again and this is les s than 2 weeks later with dizziness. No chest pain reported. No PND, orthopnea, pedal edema, palpit ations, or syncope. Her cardiac workup is negative. She has a chronic left bundle-branch block on t he EKG. Allergies: SHE IS ALLERGIC TO IODINE, PENICILLIN, LEVAQUIN. Review of Systems: Negative. Social History: Negative. Family History: Negative. Medications: Include; Norvasc, aspirin, Lipitor, insulin, Avapro, thyroid, Effient, metformin and me toprolol. Physical Examination: Vital Signs: Stable. Afebrile. HEENT: Negative. Neck: Supple. No bruit. Chest: Clear. Cardiac: Exam is normal. Abdomen: Benign. Extremities: Revealed no clubbing, cyanosis, or edema. Diagnostic Data: Normal except for the EKG. Impression And Plan: Dizziness, certainly could be related to her cardiac medication. She does have a left bundle-branch block. She is already ordered metoprolol, Avapro and Norvasc for her hypertens ion. I would feel more comfortable sending her home and asked her to wean off the beta-martha. She has an appointment with me on 04/26/2018 in the office and she can go home whenever it is okay with Dr. Khan. She has had a carotid Doppler that is negative. Her other issues including dyslipidemia, hypothyroidism and coronary artery disease are stable. She is not really due for a stress test unti l September of 2018. No cardiac workup recommended at this point. ALDEN/ALFRED Voice ID: [id number] Report ID: [id number]
[2018-04-24 17:07] VITALS: TEMP 97.2
[2018-04-24 17:58] VITALS: BP 151/81
== END 2018-04-24 16:40 | disposition home or self-care (01) ==
LOC: ER 14:08 → ERHOLD 16:37 → 4TH 17:07
PROVIDERS: ADMIT Internal Medicine; ATTEND Internal Medicine
DX: R07.9 Chest pain, unspecified (principal); I25.10 Atherosclerotic heart disease of native coronary artery without angina pectoris; Z98.61 Coronary angioplasty status; E11.9 Type 2 diabetes mellitus without complications; I10 Essential (primary) hypertension; E03.9 Hypothyroidism, unspecified; E66.9 Obesity, unspecified; Z68.36 Body mass index [BMI] 36.0-36.9, adult; R42 Dizziness and giddiness; I44.7 Left bundle-branch block, unspecified; Z88.0 Allergy status to penicillin
CPT/HCPCS: 36415; 71045; 80048; 80076; 82550; 82962 ×8; 83735; 83880; 84484 ×3; 85025; 85610; 87077; 87086; 87088; 87186; 93005; 96365; 96372; 99285; G0378 ×2; J0696; J1650; 81003; 81015

== ENCOUNTER 2018-08-29 12:00 | Observation (INO) | payer OTHER ==
[2018-08-29 12:34] LABS: Absolute Monocytes 0.5 K/uL (0.1-1.3); Absolute Neutrophil 5.8 K/uL (1.8-8.0); Basophils % 0.9 % (0-1.3); Eosinophils % 1.9 % (0-4.4); Hematocrit 43.9 % (36.0-45.0); Lymphocytes % 23.3 % (15.3-44.8); MPV 8.8 fL (7.6-11.3); Monocytes % 5.8 % (3.3-12.3); RBC Red Blood Cell Count 5.08 M/uL (3.86-4.86)
[2018-08-29 12:38] LABS: Protime INR 1.04
[2018-08-29 12:54] LABS: ALT/SGPT 53 U/L (12-78); AST/SGOT 34 U/L (15-37); Albumin 3.6 g/dL (3.4-5.0); Alkaline Phosphatase 75 U/L (45-117); BUN Blood Urea Nitrogen 16 mg/dL (7-18); Bicarbonate 27 mmol/L (21-32); Bilirubin Direct 0.1 mg/dL (0-0.2); Bilirubin Total 0.5 mg/dL (0.2-1.0); Glucose Level 141 mg/dL (74-106); Magnesium 1.7 mg/dL (1.8-2.4); NT PRO-BNP 50 pg/mL (<125); Potassium 3.9 mmol/L (3.5-5.1); Sodium Level 140 mmol/L (136-145); Troponin (Emerg Dept Use Only) < 0.02 ng/mL (0.0-0.045)
--- NOTE | 2018-08-29 13:24 | EKG ---
Test Date: 2018-08-29 Test Time: 12:13:34 Dictaphone Mechanic: BHANU MEASUREMENT RESULTS: Intervals: Rate: 93 [place]: 152 QRSD: 122 QT: 372 QTc: 462 Ray: P: 57 AZ: 152 QRS: -51 T: 107 INTERPRETIVE STATEMENTS: Normal sinus rhythm Left axis deviation Left bundle branch block Abnormal ECG Compared to ECG 04/22/2018 14:37:12 No significant changes Electronically Signed On 08-29-18 13:23:54 GROCERY ASSOCIATE by Bienvenido Nguyen
--- NOTE | 2018-08-29 13:48 | RAD REPORT ---
EXAM DESCRIPTION: Pavel Single View08/29/2018 1:35 pm CLINICAL HISTORY: Chest pain COMPARISON: April 2018 FINDINGS: The lungs appear clear of acute infiltrate. The heart is normal size IMPRESSION: No acute abnormalities displayed
--- NOTE | 2018-08-29 15:42 | EDPHYS ---
Physician Documentation [facility] Name: Laura Khanna Age: 68 yrs Sex: Female : 1950 Arrival Date: 08/29/2018 Time: 12:01 Bed 2 Private MD: Kin Hernandez ED Physician Rohit Angel HPI: 08/29 15:38 This 68 yrs old Female presents to ER via Wheelchair with complaints of Chest gs Pressure, Shortness Of Breath, Dizziness. 15:38 The patient or guardian reports chest pain that is located primarily in the anterior gs chest wall. Onset: 2 day(s) ago. The pain radiates to Associated signs and symptoms: Pertinent positives: shortness of breath. The chest pain is described as a heaviness. Duration: The patient or guardian reports multiple episodes, that are intermittent, that wax and wane, with no pattern. Modifying factors: The symptoms are alleviated by nothing. the symptoms are aggravated by using cpap. Severity of pain: At its worst the pain was moderate in the emergency department the pain is unchanged. The patient has experienced similar episodes in the past, a few times. Historical: - Allergies: 12:19 Iodine; ph 12:19 Levaquin; ph 12:19 PENICILLINS; ph - Home Meds: 12:19 Levothroid 75 mcg Oral tab 1 tab once daily [Active]; irbesartan 300 mg oral tab 1 tab ph once daily [Active]; atorvastatin 80 mg oral tab 1 tab once daily [Active]; metformin 1,000 mg oral tab 1 tab 2 times per day [Active]; aspirin 81 mg Oral TbEC 1 tab once daily [Active]; prasugrel oral 10 mg oral [Active]; amlodipine 10 mg tab 1 tab once daily [Active]; Ranitidine Oral [Active]; - PMHx: 12:19 Diabetes - IDDM; Diabetes - NIDDM; Hypertension; Hypothyroidism; ph - PSHx: 12:19 Heart stents; ph - Immunization history:: Adult Immunizations up to date. - Social history:: Smoking status: Patient/guardian denies using tobacco. - Ebola Screening: : No symptoms or risks identified at this time. ROS: 15:38 All other systems are negative. gs Exam: 15:38 Head/Face: Normocephalic, atraumatic. Eyes: Pupils equal round and reactive to light, gs extra-ocular motions intact. Lids and lashes normal. Conjunctiva and sclera are non-icteric and not injected. Cornea within normal limits. Periorbital areas with no swelling, redness, or edema. ENT: Nares patent. No nasal discharge, no septal abnormalities noted. Tympanic membranes are normal and external auditory canals are clear. Oropharynx with no redness, swelling, or masses, exudates, or evidence of obstruction, uvula midline. Mucous membranes moist. Neck: Trachea midline, no thyromegaly or masses palpated, and no cervical lymphadenopathy. Supple, full range of motion without nuchal rigidity, or vertebral point tenderness. No Meningismus. Chest/axilla: Normal chest wall appearance and motion. Nontender with no deformity. No lesions are appreciated. Skin: Warm, dry with normal turgor. Normal color with no rashes, no lesions, and no evidence of cellulitis. MS/ Extremity: Pulses equal, no cyanosis. Neurovascular intact. Full, normal range of motion. Neuro: Awake and alert, GCS 15, oriented to person, place, time, and situation. Cranial nerves II-XII grossly intact. Motor strength 5/5 in all extremities. Sensory grossly intact. Cerebellar exam normal. Normal gait. 15:38 Respiratory: Lungs have equal breath sounds bilaterally, clear to auscultation and percussion. No rales, rhonchi or wheezes noted. No increased work of breathing, no retractions or nasal flaring. Abdomen/GI: Soft, non-tender, with normal bowel sounds. No distension or tympany. No guarding or rebound. No evidence of tenderness throughout. Back: No spinal tenderness. No costovertebral tenderness. Full range of motion. 15:38 Constitutional: The patient appears alert, awake. 15:38 Cardiovascular: Rate: normal, Rhythm: regular, Pulses: no pulse deficits are appreciated. 15:38 ECG was reviewed by the Attending Physician. Vital Signs: 12:19 BP 180 / 78; Pulse 100; Resp 18; Temp 97.6; Pulse Ox 100% on R/A; Weight 96.62 kg; ph Height 5 ft. 5 in. (165.10 cm); Pain 5/10; 13:21 BP 144 / 65; Pulse 80; Resp 13; Pulse Ox 96% ; sv 14:26 BP 150 / 58; Pulse 86; Resp 16; Pulse Ox 96% ; sv 15:22 BP 142 / 76; Pulse 69; Resp 14; Pulse Ox 98% ; sv 16:20 BP 145 / 73; Pulse 90; Resp 17; Pulse Ox 97% ; sv 12:19 Body Mass Index 35.44 (96.62 kg, 165.10 cm) ph MDM: 12:13 Patient medically screened. gs 15:38 Differential diagnosis: acute myocardial infarction, coronary artery disease chest wall gs pain, pulmonary embolus, stable angina, unstable angina. Data reviewed: vital signs, nurses notes. Counseling: I had a detailed discussion with the patient and/or guardian regarding: the historical points, exam findings, and any diagnostic results supporting the discharge/admit diagnosis, lab results, radiology results, the need for outpatient follow up, a talent development specialist. 16:08 Response to treatment: the patient's symptoms have mildly improved after treatment, and gs as a result, I will admit patient. 08/29 12:17 Order name: Basic Metabolic Panel; Complete Time: 12:57 08/29 12:17 Order name: CBC with Diff; Complete Time: 12:57 08/29 12:17 Order name: LFT's; Complete Time: 12:57 08/29 12:17 Order name: Magnesium; Complete Time: 12:57 08/29 12:17 Order name: NT PRO-BNP; Complete Time: 12:57 08/29 12:17 Order name: PT-INR; Complete Time: 12:57 08/29 12:17 Order name: Troponin (emerg Dept Use Only); Complete Time: 12:57 08/29 12:17 Order name: XRAY Chest (1 view); Complete Time: 13:59 08/29 12:17 Order name: D-Dimer; Complete Time: 12:57 08/29 13:50 Order name: Troponin (emerg Dept Use Only); Complete Time: 15:01 08/29 16:15 Order name: Troponin I [facility] 08/29 16:15 Order name: Troponin I [facility] 08/29 16:15 Order name: Troponin I [facility] 08/29 12:17 Order name: EKG; Complete Time: 12:19 08/29 12:17 Order name: Cardiac monitoring; Complete Time: 12:36 08/29 12:17 Order name: EKG - Nurse/Tech; Complete Time: 12:36 08/29 12:17 Order name: IV Saline Lock; Complete Time: 12:36 08/29 12:17 Order name: Labs collected and sent; Complete Time: 12:36 08/29 12:17 Order name: O2 Per Protocol; Complete Time: 12:36 08/29 12:17 Order name: O2 Sat Monitoring; Complete Time: 12:37 08/29 16:15 Order name: CONS Physician Consult [facility] 08/29 16:15 Order name: Consistent Carb (ADA) 2000 Jayjay EDMD 08/29 16:15 Order name: EKG Electrocardiogram EDMD 08/29 16:15 Order name: EKG Electrocardiogram EDMD EC:38 Rate is 93 beats/min. Rhythm is regular. MT interval is normal. QRS interval is gs prolonged. T waves are Normal. No ST changes noted. Clinical impression: Abnormal EKG without significant change. Interpreted by me. Administered Medications: 16:18 Drug: fentaNYL (PF) 25 mcg Route: IVP; Site: right antecubital; sv Disposition: 16:08 Critical Care:. gs Disposition: 08/29/18 16:09 Hospitalization ordered by Kin Hernandez for Observation. Preliminary diagnosis is Precordial pain. - Bed requested for Telemetry/MedSurg (observation). - Status is Observation. sv - Condition is Stable. - Problem is new. - Symptoms have improved. UTI on Admission? No Critical care time excluding procedures: 16:08 Critical care time: Bedside Care: 10 minutes, Consultation: 10 minutes, Family gs Intervention: 10 minutes. Total time: 30 minutes Signatures: Dispatcher [employer] [facility] Lauryn Byrd Stephanie, RN RN Joanna Jones RN RN Mayra Nowak RN RN Rohit Angel MD MD Corrections: (The following items were deleted from the chart) 15:57 15:42 08/29/2018 15:42 Discharged to Home. Impression: Chest pain, unspecified. gs Condition is Stable. Forms are Medication Reconciliation Form, Thank You Letter, Antibiotic Education, Prescription Opioid Use. Follow up: Bienvenido Nguyen; When: Tomorrow; Reason: Re-evaluation by your physician. 16:08 15:38 Response to treatment: the patient's symptoms have resolved after treatment, the gs patient's pain is gone, gs 16:44 16:09 Hospitalization Ordered by Kin Hernandez MD for Observation. Preliminary bd diagnosis is Precordial pain. Bed requested for Telemetry/MedSurg (observation). Status is Observation. Condition is Stable. Problem is new. Symptoms have improved. UTI on Admission? No. gs 17:25 16:44 08/29/2018 16:09 Hospitalization Ordered by Kin Hernandez MD for Observation. sv Preliminary diagnosis is Precordial pain. Bed requested for Telemetry/MedSurg (observation). Status is Observation. Condition is Stable. Problem is new. Symptoms have improved. UTI on Admission? No. bd
--- NOTE | 2018-08-29 15:42 | ER ---
Nurse's Notes [facility] Name: Laura Khanan Age: 68 yrs Sex: Female : 1950 Arrival Date: 08/29/2018 Time: 12:01 Bed 2 Private MD: Kin Hernandez Diagnosis: Precordial pain Presentation: 08/29 12:15 Presenting complaint: Patient states: Chest pain that began approx 3 hours [employer], ph describes as pressure in center of chest that radiates to back, also c/o SOB, palpitations and dizziness, denies N/V or syncope. Transition of care: patient was not received from another setting of care. Onset of symptoms was August 29, 2018. Risk Assessment: Do you want to hurt yourself or someone else? Patient reports no desire to harm self or others. Initial Sepsis Screen: Does the patient meet any 2 criteria? No. Patient's initial sepsis screen is negative. Does the patient have a suspected source of infection? No. Patient's initial sepsis screen is negative. Care prior to arrival: None. 12:15 Method Of Arrival: Wheelchair ph 12:15 Acuity: ZACARIAS 3 ph Historical: - Allergies: 12:19 Iodine; ph 12:19 Levaquin; ph 12:19 PENICILLINS; ph - Home Meds: 12:19 Levothroid 75 mcg Oral tab 1 tab once daily [Active]; irbesartan 300 mg oral tab 1 tab ph once daily [Active]; atorvastatin 80 mg oral tab 1 tab once daily [Active]; metformin 1,000 mg oral tab 1 tab 2 times per day [Active]; aspirin 81 mg Oral TbEC 1 tab once daily [Active]; prasugrel oral 10 mg oral [Active]; amlodipine 10 mg tab 1 tab once daily [Active]; Ranitidine Oral [Active]; - PMHx: 12:19 Diabetes - IDDM; Diabetes - NIDDM; Hypertension; Hypothyroidism; ph - PSHx: 12:19 Heart stents; ph - Immunization history:: Adult Immunizations up to date. - Social history:: Smoking status: Patient/guardian denies using tobacco. - Ebola Screening: : No symptoms or risks identified at this time. Screenin:24 Abuse screen: Denies threats or abuse. Denies injuries from another. Nutritional hb screening: No deficits noted. Tuberculosis screening: No symptoms or risk factors identified. Fall Risk None identified. Assessment: 12:15 General: Appears in no apparent distress. Behavior is calm, cooperative. Pain: hb Complains of pain in mid-sternal area mid back Pain currently is 5 out of 10 on a pain scale. Pain began 3 hours ago. Neuro: Level of Consciousness is awake, alert, obeys commands, Oriented to person, place, time, situation. Cardiovascular: Heart tones S1 S2 present Capillary refill < 3 seconds Patient's skin is warm and dry. Respiratory: Airway is patent Respiratory effort is even, unlabored, Respiratory pattern is regular, symmetrical, Breath sounds are clear bilaterally. GI: No signs and/or symptoms were reported involving the gastrointestinal system. : No signs and/or symptoms were reported regarding the genitourinary system. EENT: No signs and/or symptoms were reported regarding the EENT system. Derm: Skin is intact, is healthy with good turgor. Musculoskeletal: No signs and/or symptoms reported regarding the musculoskeletal system. 13:15 Reassessment: Patient appears in no apparent distress at this time. No changes from hb previously documented assessment. Patient and/or family updated on plan of care and expected duration. Pain level reassessed. Patient is alert, oriented x 3, equal unlabored respirations, skin warm/dry/pink. 14:27 Reassessment: Patient appears in no apparent distress at this time. No changes from sv previously documented assessment. Patient and/or family updated on plan of care and expected duration. Pain level reassessed. Patient is alert, oriented x 3, equal unlabored respirations, skin warm/dry/pink. 16:20 Reassessment: Patient appears in no apparent distress at this time. No changes from sv previously documented assessment. Patient and/or family updated on plan of care and expected duration. Pain level reassessed. Patient is alert, oriented x 3, equal unlabored respirations, skin warm/dry/pink. Vital Signs: 12:19 BP 180 / 78; Pulse 100; Resp 18; Temp 97.6; Pulse Ox 100% on R/A; Weight 96.62 kg; ph Height 5 ft. 5 in. (165.10 cm); Pain 5/10; 13:21 BP 144 / 65; Pulse 80; Resp 13; Pulse Ox 96% ; sv 14:26 BP 150 / 58; Pulse 86; Resp 16; Pulse Ox 96% ; sv 15:22 BP 142 / 76; Pulse 69; Resp 14; Pulse Ox 98% ; sv 16:20 BP 145 / 73; Pulse 90; Resp 17; Pulse Ox 97% ; sv 12:19 Body Mass Index 35.44 (96.62 kg, 165.10 cm) ph ED Course: 12:01 Patient arrived in ED. sb2 12:02 Kin Hernandez MD is Private Physician. sb2 12:05 Rohit Angel MD is Attending Physician. gs 12:16 Triage completed. ph 12:19 EKG done, by fuel conversion technician. reviewed by Rohit Angel MD. at1 12:20 Arm band placed on Patient placed in an exam room, on a stretcher, on hall monitor, ph on pulse oximetry. 12:26 Inserted saline lock: 20 gauge in right antecubital area, using aseptic technique. ss Blood collected. Patient maintains SpO2 saturation greater than 95% on room air. 13:00 Patient has correct armband on for positive identification. Placed in gown. Bed in low hb position. Call light in reach. Side rails up X 1. quality assurance monitor final on. Pulse ox on. NIBP on. 13:20 X-ray completed. Portable x-ray completed in exam room. Patient tolerated procedure jb2 well. 13:21 Geena Aguiar RN is Primary Nurse. sv 13:23 XRAY Chest (1 view) In Process Unspecified. EDMS 14:28 Repeat lab(s) drawn. by ED staff, sent to lab. sv 15:41 Bienvenido Nguyen MD is Referral Physician. gs 16:09 Kin Hernandez MD is Hospitalizing Provider. gs Administered Medications: 16:18 Drug: fentaNYL (PF) 25 mcg Route: IVP; Site: right antecubital; sv Outcome: 15:42 Discharge ordered by MD. gs 16:09 Decision to Hospitalize by Provider. gs 17:25 Patient left the ED. sv Signatures: Dispatcher [employer] EDMS Geena Aguiar RN RN Arjun Calderon jb2 Temi Riley RN RN Johanna Yeung, political theory professor EKG Tat1 Joanna Jones RN RN Mayra Nowak RN [facility] Rohit Angel MD MD gs Billeau, Stacey sb2
[2018-08-29] MEDS ORDERED: ACETAMINOPHEN 500 MG TAB PO PRN (16:13)
[2018-08-29] MEDS ORDERED: FENTANYL CITR 100 MCG/2 ML ONE (16:23)
[2018-08-29 18:16] VITALS: BMI 35.4
[2018-08-29] MEDS ORDERED: HOME MED 1 EA UNK (Irbesartan [Avapro] 300 MG) PO SCH (21:00)
[2018-08-29] MEDS ORDERED: IRBESARTAN 150 MG TAB PO SCH (21:00)
[2018-08-29] MEDS ORDERED: HOME MED 1 EA UNK (Metformin Hcl [Metformin Hcl] 1,000 MG) PO SCH (21:00)
[2018-08-29] MEDS ORDERED: ATORVASTATIN 80 MG TAB PO SCH (21:00)
[2018-08-29] MEDS: INSULIN GLARGINE 100 UNITS/ML SQ SCH (21:23)
[2018-08-29 21:46] LABS: Urine Appearance CLEAR; Urine Bilirubin NEGATIVE (NEG); Urine Blood NEGATIVE (NEG); Urine Color YELLOW; Urine Glucose 1+ (NEG); Urine Protein NEGATIVE (NEG); Urine Specific Gravity 1.015 (1.005-1.030)
[2018-08-29 21:48] LABS: Urine Microscopic Reflex ORDER UMIC
[2018-08-29 22:29] LABS: Urine Bacteria 20-50 /HPF (<20); Urine Culture Reflex Order REFLEXED; Urine RBC NONE SEEN /HPF (NONE SEEN)
[2018-08-30] MEDS ORDERED: LEVOTHYROXINE SOD 0.075 MG TAB PO SCH (06:00)
--- NOTE | 2018-08-30 06:16 | CON ---
I saw the patient on 08/29/2017. Reason For Consultation: Chest pain. History Of Present Illness: Ms. Khanna is a 68-year-old woman who has a history of coronary artery d isease. She had a stent of her LAD in March 2018 and was re-admitted not too long after that for di zziness that has resolved. Came in with substernal chest pressure that was not exertional. She had some nausea but no diaphoresis and has been having some dyspnea on exertion. She feels like her symp toms may be related to when she eats and when she lays down. Denies PND, orthopnea, pedal edema, pal pitation, or syncope. She already had 2 negative troponins, CPKs, MBs. Her EKG showed chronic left bundle-branch block. She is asymptomatic now. The pain did radiate to her right shoulder. Allergies: PENICILLIN, IODINE, LEVAQUIN, AND SOAP. Medications: At home include Norvasc, Effient, Synthroid, aspirin, Lipitor, insulin, and Avapro. Past Medical History: Includes CAD, hypertension, hypothyroidism, dyslipidemia, and diabetes. Review of Systems: Negative. Social History: Negative. Family History: Negative. Physical Examination: Vital Signs: Stable. She was afebrile. HEENT: Negative. Neck: Supple with no bruit. Chest: Clear to auscultation and percussion. Cardiac exam: Revealed a regular rhythm and rate. No murmurs, gallops, or rubs. Abdomen: Benign. Extremities: Revealed no clubbing, cyanosis, or edema. Neurological: She was intact. Skin: Dry and intact. Extremities: Pulses were present bilaterally in the distal extremity. Diagnostic Data: As stated earlier. Impression And Plan: Type 2 diabetes, hypertension, dyslipidemia, status post LAD stent approximatel y 6 months ago. It is possible that her symptoms are related to gastroesophageal reflux disease, gas tritis, or esophagitis, may be secondary to the Effient. I think it would be reasonable to do a Daniela scan on her. If this is negative, I would definitely stop her Effient and put her on proton pump inh ibitor and send her home. If it is positive, we may have to redo another heart catheterization. NB/MODL Voice ID: [id number] Report ID: [id number]
[2018-08-30] MEDS ORDERED: METFORMIN HCL 500 MG TAB PO SCH (08:00)
[2018-08-30] MEDS ORDERED: REGADENOSON 0.4 MG/5 ML SYR IV ONE (08:06)
[2018-08-30] MEDS: INSULIN GLARGINE 100 UNITS/ML SQ SCH (09:00)
[2018-08-30] MEDS ORDERED: ASPIRIN EC 81 MG TAB PO SCH (09:00)
[2018-08-30] MEDS ORDERED: ASPIRIN 81 MG CHEWABLE TABLET PO SCH (09:00)
[2018-08-30] MEDS ORDERED: PRASUGREL (EFFIENT) 10 MG TAB PO SCH (09:00)
[2018-08-30] MEDS ORDERED: AMLODIPINE 5 MG TAB PO SCH (09:00)
--- NOTE | 2018-08-30 10:05 | RAD REPORT ---
EXAM DESCRIPTION: NM - Rest Stress Cardiac Imaging - 08/30/2018 9:27 am CLINICAL HISTORY: Chest pain COMPARISON: March 2018 TECHNIQUE: The patient was administered approximately 10 mCi of Tc 99m Sestamibi prior to resting SP ECT imaging of the heart. The patient was then administered approximately 30 mCi of Tc 99m Sestamibi following exercise or pharmacologic stress. Multiplanar SPECT images were reviewed. FINDINGS: The end diastolic volume is 65 ml, the end systolic volume is 24 ml, and the ejection frac tion is 64 %. Ejection fraction has improved since the comparison. No stress-induced ischemic changes identifiable on this study. The stress defect seen in the anterior wall on the March study has improved or resolved. Stenting or revascularization history is not apige ilable. There is a minimal remnant fixed defect in the anterior wall near the apex. No other area of scarring or significant finding. IMPRESSION: No stress-induced ischemic change. Suspected stress ischemia anterior wall on the March 2018 study has improved or resolved. There is a minimal focus of fixed defect or scarring in the anterior wall at the apex. End-diastolic volume decreased from 90 mL to 65 mL on the current study. Ejection fraction has improv ed from 56% to 64%.
[2018-08-30 14:15] VITALS: BP 185/81; TEMP 97.2
[2018-08-30 15:10] VITALS: O2SAT 94
--- NOTE | 2018-08-30 20:19 | PN ---
Date of Progress Note: 08/30/2018 The patient is asymptomatic. Her stress test was within normal limits, seen by Cardiology, suggested taking off the Effient if the stress test was negative. She was, therefore, discharged and take osmani e Prilosec, Prevacid for a week, to be followed up in a week in my office and follow up with Dr. Ron leroy on a p.r.n. basis. Probability is being esophageal spasm and/or pylorospasm secondary to the Eff ient is the most likely explanation for her chest pain. She will be evaluated with GI workup if it p ersists. Discharged in good condition. HR/MODL Voice ID: [id number] Report ID: [id number]
--- NOTE | 2018-08-31 08:08 | TREADPHA ---
DX: CHEST PAIN Date of Study: 08/30/2018 Ht: 5 5 Wt: 213 lb 0 oz Consulting Physician: WALTER MEDICATIONS: ACETAMINOPHEN, NORVASC, ASPIRIN, LIPITOR, LANTUS, AVAPRO, SYNTHROID, GLUCOPHAGE, PRASUGREL HISTORY: 66 YEAR OLD FEMALE WITH COMPLAINTS OF CHEST PAIN. HISTORY OF HYPERTENSION, DIABETES MELLITUS, HYPOTHYROID AND ONE CARDIAC STENT. PHYSICIAL EXAMINATION: RESTING B.P.: 154/81 RESTING H.R.: 71 RESTING EKG: SINUS RHYTHM, LEFT BUNDLE BRANCH BLOCK PROTOCOL: LEXISCAN EXERCISE TIME: 3:30 B.P. AT PEAK STRESS: 161/72 IMPRESSION: LEXISCAN INJECTED, CARDIOLITE INJECTED PER PROTOCOL. SEE NUCLEAR MEDICINE REPORT. NO SUPRAVENTRICULAR TACHYCARDIA. NO VENTRICULAR TACHYCARDIA. MULITPLE PREMATURE VENTRICULAR COMPLEXES AFTER INJECTION. DENIED CHEST PAIN.
== END 2018-08-30 16:21 | disposition home or self-care (01) ==
LOC: ER 12:00 → ERHOLD 16:12 → 2ND 16:53
PROVIDERS: ADMIT Family Medicine; ATTEND Family Medicine
DX: I25.10 Atherosclerotic heart disease of native coronary artery without angina pectoris (principal); I10 Essential (primary) hypertension; E03.9 Hypothyroidism, unspecified; E78.5 Hyperlipidemia, unspecified; E11.9 Type 2 diabetes mellitus without complications; Z79.82 Long term (current) use of aspirin; Z88.0 Allergy status to penicillin; Z95.5 Presence of coronary angioplasty implant and graft
CPT/HCPCS: 36415; 71045; 78452; 80048; 80076; 82962 ×3; 83735; 83880; 84484 ×4; 85025; 85379; 85610; 87086; 87088; 93005; 93017; 96374; 99285; A9500; G0378 ×2; J2785; J3010; 81003; 81015

== ENCOUNTER 2019-01-24 02:53 | Emergency (ER) | payer OTHER ==
[2019-01-24] MEDS ORDERED: FENTANYL CITR 100 MCG/2 ML ONE (03:34)
[2019-01-24] MEDS ORDERED: ONDANSETRON 4 MG/2 ML VIAL ONE (03:34)
[2019-01-24 03:49] LABS: Absolute Lymphocytes (CBC) 1.9 K/uL (0.7-4.9); Basophils % 0.8 % (0-1.3); Eosinophils % 2.9 % (0-4.4); Hematocrit 43.3 % (36.0-45.0); Lymphocytes % 29.6 % (15.3-44.8); MPV 9.3 fL (7.6-11.3); Monocytes % 9.1 % (3.3-12.3); RBC Red Blood Cell Count 4.99 M/uL (3.86-4.86)
[2019-01-24 03:56] LABS: Urine Bacteria <20 /HPF (<20); Urine Culture Reflex Order REFLEXED; Urine RBC <5 /HPF (NONE SEEN)
[2019-01-24 03:59] LABS: Albumin 3.6 g/dL (3.4-5.0); Bilirubin Direct 0.7 mg/dL (0-0.2); Potassium 3.8 mmol/L (3.5-5.1); Protein, Total 8.3 g/dL (6.4-8.2)
[2019-01-24 04:23] LABS: Urine Blood TRACE (NEG); Urine Glucose TRACE (NEG); Urine Protein NEGATIVE (NEG); Urine pH 5.5 (5.0-7.0)
--- NOTE | 2019-01-24 05:42 | EDPHYS ---
Physician Documentation [facility] Name: Laura Khanna Age: 68 yrs Sex: Female : 1950 Arrival Date: 01/24/2019 Time: 02:56 Bed 20 Private MD: Kin Hernandez ED Physician Rohit Angel HPI: 01/24 05:34 This 68 yrs old Female presents to ER via Ambulatory with complaints of gs Abdominal Pain. 05:34 The patient presents with abdominal pain in the right upper quadrant. gs 05:34 Onset: The symptoms/episode began/occurred 3 day(s) ago. The symptoms do not radiate. gs Associated signs and symptoms: Pertinent positives: vomiting. The symptoms are described as crampy. Modifying factors: The symptoms are alleviated by nothing, the symptoms are aggravated by nothing. Severity of pain: At its worst the pain was severe in the emergency department the pain has improved moderately. The patient has experienced similar episodes in the past, a few times. Historical: - Allergies: 03:10 Iodine; ak1 03:10 PENICILLINS; ak1 03:10 Levaquin; ak1 - Home Meds: 03:10 atorvastatin 80 mg Oral tab 1 tab once daily [Active]; aspirin 81 mg Oral TbEC 1 tab ak1 once daily [Active]; irbesartan 300 mg Oral tab 1 tab once daily [Active]; levothyroxine 75 mcg oral tab 1 tab once daily [Active]; omeprazole 40 mg Oral cpDR 1 cap once daily [Active]; metformin 1,000 mg Oral tab 1 tab 2 times per day [Active]; amlodipine 5 mg oral tab [Active]; Levemir subcutaneous 54 units twice daily on sliding scale subcutaneous [Active]; - PMHx: 03:10 Diabetes - NIDDM; Hypertension; Hypothyroidism; Pancreatitis; ak1 - PSHx: 03:10 Hysterectomy; Cholecystectomy; Heart stents; Tonsillectomy; left shoulder; left thumb; ak1 - Immunization history:: Adult Immunizations unknown. - Social history:: Smoking status: Patient/guardian denies using tobacco. - Ebola Screening: : No symptoms or risks identified at this time. ROS: 05:34 All other systems are negative. gs Exam: 05:34 Head/Face: Normocephalic, atraumatic. Eyes: Pupils equal round and reactive to light, gs extra-ocular motions intact. Lids and lashes normal. Conjunctiva and sclera are non-icteric and not injected. Cornea within normal limits. Periorbital areas with no swelling, redness, or edema. ENT: Nares patent. No nasal discharge, no septal abnormalities noted. Tympanic membranes are normal and external auditory canals are clear. Oropharynx with no redness, swelling, or masses, exudates, or evidence of obstruction, uvula midline. Mucous membranes moist. Neck: Trachea midline, no thyromegaly or masses palpated, and no cervical lymphadenopathy. Supple, full range of motion without nuchal rigidity, or vertebral point tenderness. No Meningismus. Chest/axilla: Normal chest wall appearance and motion. Nontender with no deformity. No lesions are appreciated. Cardiovascular: Regular rate and rhythm with a normal S1 and S2. No gallops, murmurs, or rubs. Normal PMI, no JVD. No pulse deficits. Respiratory: Lungs have equal breath sounds bilaterally, clear to auscultation and percussion. No rales, rhonchi or wheezes noted. No increased work of breathing, no retractions or nasal flaring. Back: No spinal tenderness. No costovertebral tenderness. Full range of motion. Skin: Warm, dry with normal turgor. Normal color with no rashes, no lesions, and no evidence of cellulitis. MS/ Extremity: Pulses equal, no cyanosis. Neurovascular intact. Full, normal range of motion. Neuro: Awake and alert, GCS 15, oriented to person, place, time, and situation. Cranial nerves II-XII grossly intact. Motor strength 5/5 in all extremities. Sensory grossly intact. Cerebellar exam normal. Normal gait. 05:34 Constitutional: The patient appears alert, awake, uncomfortable. 05:34 Abdomen/GI: Palpation: moderate abdominal tenderness, in the right upper quadrant. Vital Signs: 03:04 BP 189 / 80; Pulse 84; Resp 18; Temp 98; Pulse Ox 99% on R/A; Weight 96.62 kg (R); ak1 Height 5 ft. 5 in. (165.10 cm) (R); Pain 10/10; 03:30 BP 157 / 62; Pulse 77; Resp 18; Pulse Ox 99% on R/A; Pain 5/10; ak1 04:47 BP 138 / 54; Pulse 71; Resp 16; Temp 98.1; Pulse Ox 95% on R/A; Pain 3/10; ak1 05:28 BP 145 / 60; Pulse 65; Resp 16; Pulse Ox 96% on R/A; ak1 03:04 Body Mass Index 35.44 (96.62 kg, 165.10 cm) ak1 MDM: 03:13 Patient medically screened. 05:34 Differential diagnosis: bowel obstruction, diverticulitis, gastritis, pancreatitis. Data reviewed: vital signs, nurses notes, lab test result(s), radiologic studies. Counseling: I had a detailed discussion with the patient and/or guardian regarding: the historical points, exam findings, and any diagnostic results supporting the discharge/admit diagnosis, lab results, radiology results, the need for outpatient follow up. Response to treatment: the patient's symptoms have markedly improved after treatment, the patient's symptoms have resolved after treatment, the patient is now symptom free, and as a result, I will discharge patient. 01/24 03:14 Order name: Basic Metabolic Panel 01/24 03:14 Order name: CBC with Diff; Complete Time: 04:39 01/24 03:14 Order name: Hepatic Function; Complete Time: 04:39 01/24 03:14 Order name: Lipase; Complete Time: 04:39 01/24 03:14 Order name: Urine Microscopic Only; Complete Time: 04:39 01/24 03:15 Order name: Basic Metabolic Panel; Complete Time: 04:39 [facility] 01/24 03:14 Order name: IV Saline Lock; Complete Time: 03:29 01/24 03:14 Order name: Labs collected and sent; Complete Time: 03:28 01/24 03:14 Order name: Urine Dipstick-Ancillary (obtain specimen); Complete Time: 03:28 01/24 03:14 Order name: CT Stone Protocol 01/24 04:01 Order name: Urine Culture [facility] 01/24 04:02 Order name: Urine Dipstick--Ancillary (enter results); Complete Time: 04:39 mw2 Administered Medications: 03:27 Drug: fentaNYL (PF) 50 mcg Route: IVP; Site: right antecubital; ak1 03:32 Follow up: Response: No adverse reaction; Pain is decreased ak1 03:27 Drug: Zofran 4 mg Route: IVP; Site: right antecubital; ak1 03:32 Follow up: Response: No adverse reaction ak1 Disposition: 01/24/19 05:42 Discharged to Home. Impression: Upper abdominal pain, unspecified, Abnormal results of liver function studies. - Condition is Stable. - Discharge Instructions: Abdominal Pain, Adult. - Prescriptions for Zofran 4 mg Oral Tablet - take 1 tablet by ORAL route every 12 hours As needed; 10 tablet. - Medication Reconciliation Form, Thank You Letter, Antibiotic Education, Prescription Opioid Use form. - Follow up: Wilfredo Ewing MD; When: 2 - 3 days; Reason: Re-evaluation by your physician. Signatures: Dispatcher [employer] EDRadha Turcios RN RN ak1 Rohit Angel MD MD gs Corrections: (The following items were deleted from the chart) 05:59 05:42 01/24/2019 05:42 Discharged to Home. Impression: Upper abdominal pain, ak1 unspecified; Abnormal results of liver function studies. Condition is Stable. Forms are Medication Reconciliation Form, Thank You Letter, Antibiotic Education, Prescription Opioid Use. Follow up: Wilfredo Ewing; When: 2 - 3 days; Reason: Re-evaluation by your physician. gs
--- NOTE | 2019-01-24 05:42 | ER ---
Nurse's Notes [facility] Name: Laura Khanna Age: 68 yrs Sex: Female : 1950 Arrival Date: 01/24/2019 Time: 02:56 Bed 20 Private MD: Kin Hernandez Diagnosis: Upper abdominal pain, unspecified;Abnormal results of liver function studies Presentation: 01/24 03:05 Presenting complaint: Patient states: abd pain with vomiting X3 days [employer]. pt c/o ak1 increased burning pain across abd tonight and burning pain to right flank tonight. pt denies diarrhea. pt has appointment with PCP today. Transition of care: patient was not received from another setting of care. Onset of symptoms is unknown. Risk Assessment: Do you want to hurt yourself or someone else? Patient reports no desire to harm self or others. Initial Sepsis Screen: Does the patient meet any 2 criteria? No. Patient's initial sepsis screen is negative. Does the patient have a suspected source of infection? No. Patient's initial sepsis screen is negative. Care prior to arrival: None. 03:05 Method Of Arrival: Ambulatory ak1 03:05 Acuity: ZACARIAS 3 ak1 Triage Assessment: 03:10 General: Appears uncomfortable, Behavior is cooperative, anxious, fussy. Pain: ak1 Complains of pain in epigastric area, right upper quadrant and left upper quadrant, right flank pain. EENT: No signs and/or symptoms were reported regarding the EENT system. Neuro: No deficits noted. Cardiovascular: No deficits noted. Respiratory: No deficits noted. GI: Abdomen is round non-distended, Bowel sounds present X 4 quads. Abd is soft X 4 quads Abdomen is tender to palpation in right upper quadrant and left upper quadrant Reports nausea, vomiting, Patient currently denies diarrhea. : No signs and/or symptoms were reported regarding the genitourinary system. Derm: No signs and/or symptoms reported regarding the dermatologic system. Musculoskeletal: No signs and/or symptoms reported regarding the musculoskeletal system. Historical: - Allergies: 03:10 Iodine; ak1 03:10 PENICILLINS; ak1 03:10 Levaquin; ak1 - Home Meds: 03:10 atorvastatin 80 mg Oral tab 1 tab once daily [Active]; aspirin 81 mg Oral TbEC 1 tab ak1 once daily [Active]; irbesartan 300 mg Oral tab 1 tab once daily [Active]; levothyroxine 75 mcg oral tab 1 tab once daily [Active]; omeprazole 40 mg Oral cpDR 1 cap once daily [Active]; metformin 1,000 mg Oral tab 1 tab 2 times per day [Active]; amlodipine 5 mg oral tab [Active]; Levemir subcutaneous 54 units twice daily on sliding scale subcutaneous [Active]; - PMHx: 03:10 Diabetes - NIDDM; Hypertension; Hypothyroidism; Pancreatitis; ak1 - PSHx: 03:10 Hysterectomy; Cholecystectomy; Heart stents; Tonsillectomy; left shoulder; left thumb; ak1 - Immunization history:: Adult Immunizations unknown. - Social history:: Smoking status: Patient/guardian denies using tobacco. - Ebola Screening: : No symptoms or risks identified at this time. Screenin:12 Abuse screen: Denies threats or abuse. Denies injuries from another. Nutritional ak1 screening: No deficits noted. Tuberculosis screening: No symptoms or risk factors identified. Fall Risk None identified. Assessment: 03:12 Reassessment: Patient appears in no apparent distress at this time. No changes from ak1 previously documented assessment. pt has appointment with Dr. Hernandez today. 03:31 Reassessment: pt stated the pain has "eased up a lot" Patient states feeling better. ak1 04:48 Reassessment: Patient appears in no apparent distress at this time. No changes from ak1 previously documented assessment. Patient and/or family updated on plan of care and expected duration. Pain level reassessed. Patient is alert, oriented x 3, equal unlabored respirations, skin warm/dry/pink. Patient states feeling better. Patient states symptoms have improved. Vital Signs: 03:04 BP 189 / 80; Pulse 84; Resp 18; Temp 98; Pulse Ox 99% on R/A; Weight 96.62 kg (R); ak1 Height 5 ft. 5 in. (165.10 cm) (R); Pain 10/10; 03:30 BP 157 / 62; Pulse 77; Resp 18; Pulse Ox 99% on R/A; Pain 5/10; ak1 04:47 BP 138 / 54; Pulse 71; Resp 16; Temp 98.1; Pulse Ox 95% on R/A; Pain 3/10; ak1 05:28 BP 145 / 60; Pulse 65; Resp 16; Pulse Ox 96% on R/A; ak1 03:04 Body Mass Index 35.44 (96.62 kg, 165.10 cm) ak1 ED Course: 02:56 Patient arrived in ED. ds1 02:56 Kin Hernandez MD is Private Physician. ds1 02:57 Rohit Angel MD is Attending Physician. gs 03:04 Radha Enrique, IRINA is Primary Nurse. ak1 03:06 Triage completed. ak1 03:10 Arm band placed on Patient placed in an exam room, on a stretcher, on pulse oximetry, ak1 Patient notified of wait time. 03:12 Patient has correct armband on for positive identification. Bed in low position. Call ak1 light in reach. Side rails up X 1. Pulse ox on. NIBP on. 03:28 Initial lab(s) drawn, by me, sent to lab. Inserted saline lock: 22 gauge in right ak1 antecubital area, using aseptic technique. Blood collected. 04:07 CT completed. Patient tolerated procedure well. Patient moved to CT via wheelchair. Patient moved back from CT. 04:16 CT Stone Protocol In Process Unspecified. EDMS 05:42 Wilfredo Ewing MD is Referral Physician. gs 05:47 No provider procedures requiring assistance completed. ak1 05:58 IV discontinued, intact, bleeding controlled, No redness/swelling at site. Pressure ak1 dressing applied. Administered Medications: 03:27 Drug: fentaNYL (PF) 50 mcg Route: IVP; Site: right antecubital; ak1 03:32 Follow up: Response: No adverse reaction; Pain is decreased ak1 03:27 Drug: Zofran 4 mg Route: IVP; Site: right antecubital; ak1 03:32 Follow up: Response: No adverse reaction ak1 Outcome: 05:42 Discharge ordered by . gs 05:47 Condition: improved ak1 05:58 Discharged to home ambulatory, with family. ak1 05:58 Discharge instructions given to patient, Instructed on discharge instructions, follow up and referral plans. medication usage, Demonstrated understanding of instructions, follow-up care, medications, pt given zofran script Prescriptions given X 1. 05:59 Patient left the ED. ak1 Signatures: Dispatcher [employer] EDNH SabinoRafy Demi ds1 Radha Enrique, RN RN ak1 Rohit Angel MD MD gs
[2019-01-24 06:16] VITALS: TEMP 98.1
[2019-01-24 06:17] VITALS: BP 145/60; O2SAT 96
--- NOTE | 2019-01-24 11:45 | RAD REPORT ---
EXAM DESCRIPTION: Stone Protocol CLINICAL HISTORY: ABD PAIN COMPARISON: None. TECHNIQUE: CT ABDOMEN PELVIS WITHOUT IV CONTRAST on 01/24/2019 3:14 AM CDT This exam was performed according to our departmental dose-optimization program, which includes autom ated exposure control, adjustment of the mA and/or kV according to patient size and/or use of iterati ve reconstruction technique. FINDINGS: Lower lungs are clear. Abdomen: The liver is normal in appearance. There is no biliary dilatation. Gallbladder is not well-s een. The pancreas and spleen are normal in appearance. The adrenal glands and kidneys are unremarkabl e. Abdominal aorta is normal in course and caliber without aneurysm. There is no free air. There is no r etroperitoneal adenopathy. Pelvis: There is no bowel obstruction. Urinary bladder is unremarkable. There is no free fluid. Hyste rectomy was performed. Appendix is not seen. Skeleton: There are no acute osseous findings. No suspicious bony lesions. IMPRESSION: No definite acute inflammatory process. No renal or ureteral calculi. Electronically signed by: Rikki Banks MD 01/24/2019 4:25 AM CDT Due to temporary technical issues with the PACS/Fluency reporting system, reports are being signed by the in house radiologist as a courtesy to ensure prompt reporting. The interpreting radiologist is f corettaly responsible for the content of the report.
== END 2019-01-24 05:59 | disposition home or self-care (01) ==
LOC: ER 02:53
DX: R94.5 Abnormal results of liver function studies (principal); I10 Essential (primary) hypertension; E11.9 Type 2 diabetes mellitus without complications; E03.9 Hypothyroidism, unspecified; Z79.82 Long term (current) use of aspirin; Z79.4 Long term (current) use of insulin; Z88.0 Allergy status to penicillin; Z88.1 Allergy status to other antibiotic agents; Z91.048 Other nonmedicinal substance allergy status; Z95.818 Presence of other cardiac implants and grafts
CPT/HCPCS: 87088; 85025; 87086; 80048; 36415; 80076; 83690; 76377; 74176; J3010; J2405; 81003; 81015; 96374; 96375; 99284

== ENCOUNTER 2019-02-02 07:13 | Day surgery (SDC) | payer OTHER ==
[2019-02-02] MEDS ORDERED: NA CHLORIDE 0.9% 1,000 ML ONE (08:12)
[2019-02-02] MEDS ORDERED: PROPOFOL 200 MG/20 ML VIAL IV ONE (09:04)
[2019-02-02] MEDS ORDERED: LIDOCAINE 1% MPF 5 ML VIAL ONE (09:05)
--- NOTE | 2019-02-02 09:13 | ENDO RPT ---
[address], [address] EGD PROCEDURE REPORT EXAM DATE: 02/02/2019 PATIENT NAME: Laura Khanna MR#: [id number] BIRTHDATE: 1950 ATTENDING: Colt Martinez DR STATUS: outpatient [employer] MANAGER: Wolf Day and Val Berumen RN INDICATIONS: The patient is a 68 yr old Female here for an EGD due to right upper quadrant abdominal pain and mid epigastric abdominal pain PROCEDURE PERFORMED: EGD with biopsy for H. pylori MEDICATIONS: Per Anesthesia. TOPICAL ANESTHETIC: none CONSENT: The patient understands the risks and benefits of the procedure and understands that these risks include, but are not limited to: sedation, allergic reaction, infection, perforation and/or bleeding. Alternative means of evaluation and treatment include, among others: physical exam, x-rays, and/or surgical intervention. The patient elects to proceed with this endoscopic procedure. DESCRIPTION OF PROCEDURE: During intra-op preparation period all mechanical medical equipment was checked for proper function. Hand hygiene and appropriate measures for infection prevention was taken. Procedure, possible complications, and alternatives including but not limited to the possibility of bleeding, perforation, tear, infection, sepsis, need for surgery, need for blood transfusion, and anesthesia related complications were explained to the patient. After the risks, benefits and alternatives of the procedure were thoroughly explained, Informed consent was verified, confirmed and timeout was successfully executed by the treatment team. The patient was placed in the left lateral position. The patient was anesthetized with topical anesthesia. Through the anesthetized oropharyngeal area, the scope was passed without any difficulty. The Pentax EG-[id number] ([id number]) endoscope was introduced through the mouth and advanced to the third portion of the duodenum. Retroflexed views revealed a small hiatal hernia. The gastroscope was then slowly withdrawn and removed. Mild gastritis was found in the body and the antrum of the stomach. A biopsy for H. pylori was taken. A small hiatal hernia was found A biopsy for H. pylori was taken. Bile reflux was found at the pylorus. A biopsy for H. pylori was taken. ADVERSE EVENTS: There were no complications. IMPRESSIONS: 1. Mild gastritis was found in the body and the antrum of the stomach 2. A small hiatal hernia was found RECOMMENDATIONS: 1. anti-reflux regimen 2. acid suppression therapy 3. await biopsy results 4. follow-up: office 2 week(s) 5. avoid NSAIDS REPEAT EXAM: Colt Martinez DR eSigned: Colt Martinez DR 02/02/2019 9:12 AM cc: CPT CODES: ICD9 CODES: PATIENT NAME: Laura Khanna MR#: [id number]
[2019-02-02 09:47] VITALS: TEMP 98
[2019-02-02 09:49] VITALS: BP 152/84; O2SAT 95
== END 2019-02-02 10:02 | disposition home or self-care (01) ==
LOC: OR 07:13
PROVIDERS: ATTEND Surgery
PROC: 0DB78ZX Excision of Stomach, Pylorus, Via Natural or Artificial Opening Endoscopic, Diagnostic (ICD-10-PCS; 2019-02-02)
PROC: 0DB98ZX Excision of Duodenum, Via Natural or Artificial Opening Endoscopic, Diagnostic (ICD-10-PCS; principal; 2019-02-02 09:00)
DX: K29.50 Unspecified chronic gastritis without bleeding (principal); K44.9 Diaphragmatic hernia without obstruction or gangrene; K21.9 Gastro-esophageal reflux disease without esophagitis; E11.9 Type 2 diabetes mellitus without complications; E78.00 Pure hypercholesterolemia, unspecified; I10 Essential (primary) hypertension; Z79.82 Long term (current) use of aspirin; Z79.4 Long term (current) use of insulin; Z79.899 Other long term (current) drug therapy; Z95.5 Presence of coronary angioplasty implant and graft
CPT/HCPCS: 43239; 88312; 88305; J2704; J7030

== ENCOUNTER 2019-02-05 16:15 | Emergency (ER) | payer OTHER ==
[2019-02-05 16:58] LABS: Basophils % 0.4 % (0-1.3); Eosinophils % 0.3 % (0-4.4); Hematocrit 42.8 % (36.0-45.0); Lymphocytes % 10.2 % (15.3-44.8); MPV 9.1 fL (7.6-11.3); Monocytes % 4.5 % (3.3-12.3)
[2019-02-05 17:10] LABS: Urine Blood NEGATIVE (NEG); Urine Glucose TRACE (NEG); Urine Protein NEGATIVE (NEG); Urine pH 8.5 (5.0-7.0)
[2019-02-05 17:23] LABS: Albumin 3.5 g/dL (3.4-5.0); Bilirubin Direct 1.2 mg/dL (0-0.2); Bilirubin Total 1.7 mg/dL (0.2-1.0); Potassium 3.8 mmol/L (3.5-5.1)
[2019-02-05] MEDS ORDERED: FENTANYL CITR 100 MCG/2 ML ONE (17:25)
[2019-02-05] MEDS ORDERED: FAMOTIDINE 20 MG/2 ML VIAL IV ONE (17:25)
[2019-02-05] MEDS ORDERED: ONDANSETRON 4 MG/2 ML VIAL ONE (17:25)
[2019-02-05] MEDS ORDERED: NA CHLORIDE 0.9% 500 ML ONE (17:25)
[2019-02-05 17:28] LABS: Magnesium 1.7 mg/dL (1.8-2.4); NT PRO-BNP 153 pg/mL (<125); Troponin (Emerg Dept Use Only) < 0.02 ng/mL (0.0-0.045)
[2019-02-05 17:30] LABS: Protime INR 1.09
--- NOTE | 2019-02-05 17:50 | RAD REPORT ---
EXAM DESCRIPTION: Pavel Single View02/05/2019 5:19 pm CLINICAL HISTORY: Chest pain COMPARISON: none FINDINGS: The lungs appear clear of acute infiltrate. The heart is borderline enlarged IMPRESSION: No acute abnormalities displayed
--- NOTE | 2019-02-05 17:52 | RAD REPORT ---
EXAM DESCRIPTION: CT - Abdomen Pelvis Wo Contrast - 02/05/2019 5:25 pm CLINICAL HISTORY: Abdominal pain with vomiting COMPARISON: January 24, 2019 TECHNIQUE: Computed axial tomography of the abdomen and pelvis was obtained. IV and oral contrast we re not requested. All CT scans are performed using dose optimization technique as appropriate and may include automated exposure control or mA/KV adjustment according to patient size. FINDINGS: The evaluation of solid organs, vessels and bowel is limited secondary to the lack of con trast administration. The liver, spleen, pancreas, adrenals and kidneys appear grossly normal. Hysterectomy and cholecystectomy. Mild prominence of biliary tree There is no evidence of diverticulitis. IMPRESSION: Mild prominence of the biliary tree probably is physiologic in this patient status post cholecystectomy. Pathology such as a stricture and stone within the duct can also result in this harrison earance
--- NOTE | 2019-02-05 18:05 | RAD REPORT ---
EXAM DESCRIPTION: US - Abdomen Exam Limited - 02/05/2019 5:53 pm CLINICAL HISTORY: Abdominal pain. COMPARISON: 02/05/2019 CT FINDINGS: Cholecystectomy. Common bile duct measures 12 millimeters. A stone within the duct is not seen but can be missed with ultrasound. IMPRESSION: Prominence of biliary tree may be physiologic in this patient status post cholecystectom y. Stricture and non visualized stone within the duct can also result in this appearance
--- NOTE | 2019-02-05 19:03 | ER ---
Nurse's Notes [facility] Name: Laura Khanna Age: 68 yrs Sex: Female : 1950 Arrival Date: 02/05/2019 Time: 16:18 Bed 28 Private MD: Diagnosis: Acute Abdominal Pain;Vomiting;elevated liver enzymes Presentation: 02/05 16:18 Presenting complaint: Patient states: S/P endoscopy 02/02/19; today i started hj having abd pain more on my R upper abd area, like spasm; reports N/V; denies bleeding; i called my doctors clinic and was advised to come to the ED;. Transition of care: patient was not received from another setting of care. Onset of symptoms was February 05, 2019. Risk Assessment: Do you want to hurt yourself or someone else? Patient reports no desire to harm self or others. Initial Sepsis Screen: Does the patient meet any 2 criteria? No. Patient's initial sepsis screen is negative. Does the patient have a suspected source of infection? No. Patient's initial sepsis screen is negative. Care prior to arrival: None. 16:18 Method Of Arrival: Ambulatory 16:18 Acuity: ZACARIAS 3 hj Historical: - Allergies: 16:20 Iodine; hj 16:20 Levaquin; hj 16:20 PENICILLINS; hj - Home Meds: 17:05 amlodipine 5 mg tab [Active]; aspirin 81 mg Oral TbEC 1 tab once daily [Active]; mg2 atorvastatin 80 mg Oral tab 1 tab once daily [Active]; irbesartan 300 mg Oral tab 1 tab once daily [Active]; Levemir 54 units twice daily on sliding scale subcutaneous [Active]; levothyroxine 75 mcg tab 1 tab once daily [Active]; metformin 1,000 mg Oral tab 1 tab 2 times per day [Active]; omeprazole 40 mg Oral cpDR 1 cap once daily [Active]; - PMHx: 16:20 Diabetes - NIDDM; Hypertension; Hypothyroidism; Pancreatitis; hj - PSHx: 16:20 Hysterectomy; Cholecystectomy; Heart stents; Tonsillectomy; left shoulder; left thumb; hj - Immunization history:: Flu vaccine status is unknown. - Social history:: Smoking status: unknown. - Ebola Screening: : No symptoms or risks identified at this time. - Family history:: not pertinent. - Hospitalizations: : No recent hospitalization is reported. Screenin:02 Abuse screen: Denies threats or abuse. Denies injuries from another. Nutritional mg2 screening: No deficits noted. Tuberculosis screening: No symptoms or risk factors identified. Fall Risk IV access (20 points). Assessment: 16:58 General: Appears in no apparent distress. comfortable, Behavior is calm, cooperative. mg2 Pain: Complains of pain in epigastric Pain radiates to back Pain currently is 8 out of 10 on a pain scale. Quality of pain is described as aching, Pain began gradually, 1 day ago. Is intermittent. Neuro: Level of Consciousness is awake, alert, obeys commands, Oriented to person, place, time, situation. Cardiovascular: Capillary refill < 3 seconds Patient's skin is warm and dry. Respiratory: Airway is patent Respiratory effort is even, unlabored, Respiratory pattern is regular, symmetrical. GI: Bowel sounds present X 4 quads. Abdomen is tender to palpation. : No signs and/or symptoms were reported regarding the genitourinary system. EENT: No signs and/or symptoms were reported regarding the EENT system. Derm: Skin is intact, is healthy with good turgor, Skin is pink, warm \T\ dry. normal. Musculoskeletal: Circulation, motion, and sensation intact. Capillary refill < 3 seconds. 17:25 Reassessment: patient sent to ct scan via stretcher. mg2 17:53 Reassessment: Patient appears in no apparent distress at this time. Patient and/or mg2 family updated on plan of care and expected duration. Pain level reassessed. Patient is alert, oriented x 3, equal unlabored respirations, skin warm/dry/pink. Patient denies pain at this time. Patient states feeling better. Patient states symptoms have improved. 19:48 Reassessment: report given to IRINA Castro of [facility]. mg2 20:39 Reassessment: report given to [facility]. patient is coherent, GCS 15/15, conversant, mg2 pain-free. Vital Signs: 16:21 BP 187 / 104; Pulse 67; Resp 18; Temp 97.9(O); Pulse Ox 98% on R/A; Weight 95.71 kg; hj Height 5 ft. 5 in. (165.10 cm); Pain 10/10; 18:13 BP 152 / 63; Pulse 75; Resp 18; Temp 98; Pulse Ox 96% on R/A; Pain 0/10; mg2 20:01 BP 157 / 62; Pulse 80; Resp 18; Temp 98; Pulse Ox 100% on R/A; Pain 0/10; mg2 16:21 Body Mass Index 35.11 (95.71 kg, 165.10 cm) ED Course: 16:18 Patient arrived in ED. hj 16:20 Triage completed. hj 16:20 Arm band placed on right wrist. hj 16:26 Wilfredo Castillo MD is Attending Physician. wa 16:30 Paras Gooden, IRINA is Primary Nurse. mg2 16:52 No provider procedures requiring assistance completed. Inserted saline lock: 20 gauge mg2 in left antecubital area, using aseptic technique. Blood collected. 17:02 Patient has correct armband on for positive identification. mg2 17:17 XRAY Chest (1 view) In Process Unspecified. EDMS 17:25 CT Abd/Pelvis - Without Contrast In Process Unspecified. EDMS 17:54 US Abdomen Limited In Process Unspecified. EDMS 20:41 Patient transferred, IV remains in place. mg2 Administered Medications: 17:23 Drug: Zofran 4 mg Route: IVP; Site: left antecubital; mg2 17:55 Follow up: Response: No adverse reaction; Marked relief of symptoms mg2 17:23 Drug: Pepcid 20 mg Route: IVP; Site: left antecubital; mg2 17:55 Follow up: Response: No adverse reaction; Marked relief of symptoms mg2 17:23 Drug: fentaNYL (PF) 50 mcg Route: IVP; Site: left antecubital; mg2 17:54 Follow up: Response: No adverse reaction; Marked relief of symptoms mg2 17:48 Drug: NS 0.9% 500 ml Route: IV; Rate: bolus; Site: left antecubital; mg2 19:40 Follow up: Response: No adverse reaction; IV Status: Completed infusion; IV Intake: mg2 500ml 19:05 Drug: Flagyl 500 mg Volume: 100 ml; Route: IVPB; Rate: 200 ml/hr; Infused Over: 30 mg2 mins; Site: left antecubital; 19:39 Follow up: Response: No adverse reaction; IV Status: Completed infusion mg2 19:06 Drug: Rocephin - (cefTRIAXone) 1 grams Route: IVPB; Infused Over: 30 mins; Site: left mg2 antecubital; 19:39 Follow up: Response: No adverse reaction; IV Status: Completed infusion mg2 Intake: 19:40 IV: 500ml; Total: 500ml. mg2 Outcome: 19:03 ER care complete, transfer ordered by MD. marti 20:41 Transferred by ground EMS to [facility], Transfer form completed. mg2 20:41 Condition: stable 20:41 Instructed on the need for transfer, Demonstrated understanding of instructions. 20:51 Patient left the ED. mg2 Signatures: Dispatcher [employer] EDMS Renzo Hernandez RN RN Wilfredo Soto MD MD wa Gardose, Michele, RN RN mg2 Corrections: (The following items were deleted from the chart) 16:22 16:18 Presenting complaint: Patient states: S/P endoscopy 02/02/19; today i hj started having abd pain more on my R upper abd area, like spasm; reports N/V; denies bleeding; hj 16:23 16:21 Pulse 67bpm; Resp 18bpm; Pulse Ox 98% RA; Temp 97.9F Oral; 95.71 kg; Height 5 ft. hj 5 in.; BMI: 35.1; Pain 10/10; hj
--- NOTE | 2019-02-05 19:04 | EDPHYS ---
Physician Documentation [facility] Name: Laura Khanna Age: 68 yrs Sex: Female : 1950 Arrival Date: 02/05/2019 Time: 16:18 Bed 28 Private MD: ED Physician Wilfredo Castillo HPI: 02/05 17:27 This 68 yrs old Female presents to ER via Ambulatory with complaints of wa Abdominal Pain, Nausea/Vomiting. 17:27 The patient presents to the emergency department with nausea, vomiting, abdominal pain. wa Onset: The symptoms/episode began/occurred 11 day(s) ago. Possible causes: unknown. The symptoms are aggravated by nothing. The symptoms are alleviated by nothing. Associated signs and symptoms: Pertinent positives: nausea, vomiting, Pertinent negatives: fever. Severity of symptoms: At their worst the symptoms were moderate in the emergency department the symptoms are worse moderately. The patient has experienced a previous episode, approximately 10 days ago. The patient has been recently seen by a physician: seen here in this ED for same. . states began 01/15/19 with same. was assoc with vomiting. seen here and noted with elevated liver enzymes. advised to see Dr. Martinez who did EGD with biopsy. states never went away entirely but today worse. . Historical: - Allergies: 16:20 Iodine; hj 16:20 Levaquin; hj 16:20 PENICILLINS; hj - Home Meds: 17:05 amlodipine 5 mg tab [Active]; aspirin 81 mg Oral TbEC 1 tab once daily [Active]; mg2 atorvastatin 80 mg Oral tab 1 tab once daily [Active]; irbesartan 300 mg Oral tab 1 tab once daily [Active]; Levemir 54 units twice daily on sliding scale subcutaneous [Active]; levothyroxine 75 mcg tab 1 tab once daily [Active]; metformin 1,000 mg Oral tab 1 tab 2 times per day [Active]; omeprazole 40 mg Oral cpDR 1 cap once daily [Active]; - PMHx: 16:20 Diabetes - NIDDM; Hypertension; Hypothyroidism; Pancreatitis; hj - PSHx: 16:20 Hysterectomy; Cholecystectomy; Heart stents; Tonsillectomy; left shoulder; left thumb; hj - Immunization history:: Flu vaccine status is unknown. - Social history:: Smoking status: unknown. - Ebola Screening: : No symptoms or risks identified at this time. - Family history:: not pertinent. - Hospitalizations: : No recent hospitalization is reported. ROS: 17:32 Constitutional: Negative for fever, chills, and weight loss, Eyes: Negative for injury, wa pain, redness, and discharge, ENT: Negative for injury, pain, and discharge, Neck: Negative for injury, pain, and swelling, Cardiovascular: Negative for chest pain, palpitations, and edema, Respiratory: Negative for shortness of breath, cough, wheezing, and pleuritic chest pain, Back: Negative for injury and pain, : Negative for injury, bleeding, discharge, and swelling, MS/Extremity: Negative for injury and deformity, Skin: Negative for injury, rash, and discoloration, Neuro: Negative for headache, weakness, numbness, tingling, and seizure, Psych: Negative for depression, anxiety, suicide ideation, homicidal ideation, and hallucinations. 17:32 Abdomen/GI: Positive for abdominal pain, nausea and vomiting. Exam: 17:33 Constitutional: This is a well developed, well nourished patient who is awake, alert, wa and in no acute distress. Head/Face: Normocephalic, atraumatic. Eyes: Pupils equal round and reactive to light, extra-ocular motions intact. Lids and lashes normal. Conjunctiva and sclera are non-icteric and not injected. Cornea within normal limits. Periorbital areas with no swelling, redness, or edema. ENT: Nares patent. No nasal discharge, no septal abnormalities noted. Tympanic membranes are normal and external auditory canals are clear. Oropharynx with no redness, swelling, or masses, exudates, or evidence of obstruction, uvula midline. Mucous membranes moist. Neck: Trachea midline, no thyromegaly or masses palpated, and no cervical lymphadenopathy. Supple, full range of motion without nuchal rigidity, or vertebral point tenderness. No Meningismus. Chest/axilla: Normal chest wall appearance and motion. Nontender with no deformity. No lesions are appreciated. Cardiovascular: Regular rate and rhythm with a normal S1 and S2. No gallops, murmurs, or rubs. Normal PMI, no JVD. No pulse deficits. Respiratory: Lungs have equal breath sounds bilaterally, clear to auscultation and percussion. No rales, rhonchi or wheezes noted. No increased work of breathing, no retractions or nasal flaring. Skin: Warm, dry with normal turgor. Normal color with no rashes, no lesions, and no evidence of cellulitis. MS/ Extremity: Pulses equal, no cyanosis. Neurovascular intact. Full, normal range of motion. Neuro: Awake and alert, GCS 15, oriented to person, place, time, and situation. Cranial nerves II-XII grossly intact. Motor strength 5/5 in all extremities. Sensory grossly intact. Cerebellar exam normal. Normal gait. Psych: Awake, alert, with orientation to person, place and time. Behavior, mood, and affect are within normal limits. 17:33 Abdomen/GI: Inspection: abdomen appears normal, Bowel sounds: normal, in all quadrants, Palpation: soft, in all quadrants, moderate abdominal tenderness, in the epigastric area, right upper quadrant and right lower quadrant. Vital Signs: 16:21 BP 187 / 104; Pulse 67; Resp 18; Temp 97.9(O); Pulse Ox 98% on R/A; Weight 95.71 kg; hj Height 5 ft. 5 in. (165.10 cm); Pain 10/10; 18:13 BP 152 / 63; Pulse 75; Resp 18; Temp 98; Pulse Ox 96% on R/A; Pain 0/10; mg2 20:01 BP 157 / 62; Pulse 80; Resp 18; Temp 98; Pulse Ox 100% on R/A; Pain 0/10; mg2 16:21 Body Mass Index 35.11 (95.71 kg, 165.10 cm) MDM: 16:26 Patient medically screened. in 17:34 Differential diagnosis: Nonspecific abd pain, pancreatitis, r/o pancreatitis, ductal wa obstruction, colitis. consider ischemia. 18:57 Data reviewed: vital signs, nurses notes, lab test result(s), EKG, radiologic studies. in Test interpretation: by ED physician or midlevel provider: EKG: HR 73. LAD. LBBB. labs noted for elevated lactate of 2.3. AST/ALT 394/321. Alk phos 258. T. Bili 1.7. hyperglycemia at 219. CT abd/pelvis and RUQ US shows ductal size of 12 mm. . Response to treatment: the patient's symptoms have markedly improved after treatment. Special discussion: pt noted with elevated liver enzymes but nml T.bili on 01/24. today, t.bili is rising. abx given. will consult GI for possible ERCP. will need transfer as no GI water quality control engineer today. Abx given. 19:13 Physician consultation: Dr. Cook at [facility] . in 02/05 16:32 Order name: Basic Metabolic Panel; Complete Time: 18:33 mg2 02/05 16:32 Order name: CBC with Diff; Complete Time: 18:33 mg2 02/05 16:32 Order name: Creatinine for Radiology; Complete Time: 18:33 mg2 02/05 16:32 Order name: Hepatic Function; Complete Time: 18:33 mg2 02/05 16:32 Order name: Lipase; Complete Time: 18:31 mg2 02/05 16:56 Order name: Urine Dipstick--Ancillary (enter results); Complete Time: 18:34 02/05 17:03 Order name: Magnesium; Complete Time: 18:34 in 02/05 17:03 Order name: NT PRO-BNP; Complete Time: 18:34 in 02/05 17:03 Order name: PT-INR; Complete Time: 18:34 in 02/05 17:03 Order name: Troponin (emerg Dept Use Only); Complete Time: 18:31 in 02/05 17:03 Order name: XRAY Chest (1 view); Complete Time: 18:31 in 02/05 17:05 Order name: US Abdomen Limited; Complete Time: 18:31 in 02/05 17:35 Order name: Lactate; Complete Time: 18:31 in 02/05 17:35 Order name: Hepatitis Panel 02/05 16:32 Order name: IV Saline Lock; Complete Time: 16:52 [facility] 02/05 16:32 Order name: Labs collected and sent; Complete Time: 16:52 [facility] 02/05 17:03 Order name: EKG; Complete Time: 17:05 in 02/05 17:03 Order name: Cardiac monitoring; Complete Time: 17:23 in 02/05 17:03 Order name: EKG - Nurse/Tech; Complete Time: 17:48 in 02/05 17:03 Order name: O2 Per Protocol; Complete Time: 17:24 02/05 17:03 Order name: O2 Sat Monitoring; Complete Time: 17:24 in 02/05 17:06 Order name: CT Abd/Pelvis - Without Contrast; Complete Time: 18:32 wa Administered Medications: 17:23 Drug: Zofran 4 mg Route: IVP; Site: left antecubital; mg2 17:55 Follow up: Response: No adverse reaction; Marked relief of symptoms mg2 17:23 Drug: Pepcid 20 mg Route: IVP; Site: left antecubital; mg2 17:55 Follow up: Response: No adverse reaction; Marked relief of symptoms mg2 17:23 Drug: fentaNYL (PF) 50 mcg Route: IVP; Site: left antecubital; mg2 17:54 Follow up: Response: No adverse reaction; Marked relief of symptoms mg2 17:48 Drug: NS 0.9% 500 ml Route: IV; Rate: bolus; Site: left antecubital; mg2 19:40 Follow up: Response: No adverse reaction; IV Status: Completed infusion; IV Intake: mg2 500ml 19:05 Drug: Flagyl 500 mg Volume: 100 ml; Route: IVPB; Rate: 200 ml/hr; Infused Over: 30 mg2 mins; Site: left antecubital; 19:39 Follow up: Response: No adverse reaction; IV Status: Completed infusion mg2 19:06 Drug: Rocephin - (cefTRIAXone) 1 grams Route: IVPB; Infused Over: 30 mins; Site: left mg2 antecubital; 19:39 Follow up: Response: No adverse reaction; IV Status: Completed infusion mg2 Disposition: 02/05/19 19:03 Transfer ordered to [facility]. Diagnosis are Acute Abdominal Pain, Vomiting, elevated liver enzymes. - Reason for transfer: Higher level of care. - Accepting physician is [facility]. - Condition is Stable. - Problem is new. - Symptoms have improved. Signatures: Dispatcher [employer] EDFL Renzo Hernandez RN RN Wilfredo Castillo MD MD wa Gardose, Michele, RN RN mg2 Corrections: (The following items were deleted from the chart) 20:51 19:03 02/05/2019 19:03 Transfer ordered to [facility]. Diagnosis is mg2 Acute Abdominal Pain; Vomiting; elevated liver enzymes. Reason for transfer: Higher level of care. [facility] Condition is Stable. Problem is new. Symptoms have improved. wa
[2019-02-05] MEDS ORDERED: METRONIDAZOLE 500mg IVPB 500 MG/100 ML BAG IV ONE (19:13)
[2019-02-05] MEDS ORDERED: CEFTRIAXONE/SWI 1gm 1 GM/10 ML SYR ONE (19:13)
--- NOTE | 2019-02-05 19:40 | EKG ---
Test Date: 2019-02-05 Test Time: 17:40:33 Medical Detail Representative: FRAN MEASUREMENT RESULTS: Intervals: Rate: 73 CO: 156 QRSD: 126 QT: 434 QTc: 478 [place]: P: 43 CO: 156 QRS: -53 T: 98 INTERPRETIVE STATEMENTS: Normal sinus rhythm Left axis deviation Left bundle branch block Abnormal ECG Compared to ECG 08/29/2018 12:13:34 No significant changes Electronically Signed On 02-05-19 19:40:13 CDT by Bienvenido Nguyen
[2019-02-07 17:53] VITALS: BP 157/62; TEMP 98; O2SAT 100
== END 2019-02-05 20:51 | disposition short-term general hospital (02) ==
LOC: ER 16:15
DX: R11.10 Vomiting, unspecified (principal); R94.5 Abnormal results of liver function studies; I10 Essential (primary) hypertension; E11.9 Type 2 diabetes mellitus without complications; E03.9 Hypothyroidism, unspecified; Z79.82 Long term (current) use of aspirin; Z88.0 Allergy status to penicillin; Z88.1 Allergy status to other antibiotic agents; Z91.048 Other nonmedicinal substance allergy status; Z95.818 Presence of other cardiac implants and grafts
CPT/HCPCS: 93005; 85025; 80048; 36415; 83735; 85610; 80076; 83605; 81003; 84484; 83690; 83880; 80074; 74176; 71045; 76705; J3010; J0696; J2405; 96361; 96365; 96375; 99285

== ENCOUNTER 2019-08-06 13:39 | Emergency (ER) | payer OTHER ==
--- OUTSIDE RECORDS SUMMARY | 2019-08-06 13:43 | XMS REPORT ---
:1950 [facility] Address [address] [place] [address] Dr. Marion [address] [place] [id number] Care Team Providers Name Role Phone CHANDANA KATELYN M. Unavailable Unavailable Problems This patient has no known problems. Allergies, Adverse Reactions, Alerts This patient has no known allergies or adverse reactions. Medications This patient has no known medications. Results Test Description Test Time Test Comments Text Results Atomic Results Result Comments FL, ERCP 2019-02-07 22:39:00 INTRA OP IMAGINGReason for FINAL REPORT PATIENT ID: exam:->CBD STONES [id number] Examination: ERCP 4 fluoroscopic spot views were obtained during the procedure by the ordering service. Images are nondiagnostic as no radiologist was present at the time of imaging. Fluoroscopic time was 122.2 seconds. Please see the procedure report for details. Signed: Reyes [place] Verified Date/Time: 02/07/2019 22:39:15 Reading Location: [address] Reading Room -GLUCOSE METER 2019-02-07 18:25:00 Test Item Value Reference Range Comments POC-GLUCOSE METER (BEAKER) (test 200 mg/dL 70-110 TESTED AT [address] hxot=7761) [facility] [id number] POCT-GLUCOSE [id number] 15:42:00 Test Item Value Reference Range Comments POC-GLUCOSE METER (BEAKER) 164 mg/dL 70-110 TESTED AT [address] (test fgod=4346) [facility] [id number] POCT-GLUCOSE [id number] 12:01:00 Test Item Value Reference Range Comments POC-GLUCOSE METER (BEAKER) 189 mg/dL 70-110 TESTED AT [address] (test zpln=8638) [place] [id number] POCT-GLUCOSE [id number] 05:00:00 Test Item Value Reference Range Comments POC-GLUCOSE METER (BEAKER) 196 mg/dL 70-110 TESTED AT [place] [id number] [facility] (test woyb=9648) [facility] [id number] POCT-GLUCOSE [id number] 00:28:00 Test Item Value Reference Range Comments POC-GLUCOSE METER (BEAKER) 218 mg/dL 70-110 TESTED AT [address] (test ogfn=3549) [place] [id number] POCT-GLUCOSE [id number] 17:58:00 Test Item Value Reference Range Comments POC-GLUCOSE METER (BEAKER) 155 mg/dL 70-110 TESTED AT [address] (test crdt=9025) [place] [id number] MR, ABDOMEN, [id number] 12:55:00FINAL REPORT TECHNIQUE: MRI of the abdomen and MRCP WITHOUT intravenous contrast. 3-D volume reconstructions were obtained to evaluate the biliary ductal system. INDICATION : BILIARY COLIC, POSSIBLE STONE IN BILE DUCT ON CT. COMPARISON: None. FINDINGS : ABSENCE OF INTRAVENOUS CONTRAST DECREASES SENSITIVITY FOR DETECTION OF FOCAL LESIONS AND VASCULAR PATHOLOGY. LOWER THORAX: Unremarkable. LIVER: Diffusely decreased signal in the liver on out of phase imaging. No focal hepatic lesions. BILIARY: Prior cystectomy. The common bile duct measures 0.7 cm in diameter. A stone in the common bile duct measures up to 0.6 cm. Mild intrahepatic ductal dilation. SPLEEN: No splenomegaly.PANCREAS: No focal masses or ductal dilatation. Accessory duct of Santorini. ADRENALS: No adrenal nodules.KIDNEYS/URETERS: No hydronephrosis or solid mass lesions. A lateral pole fat density lesion measures0.9 cm on axial in phase image 5. PERITONEUM/ RETROPERITONEUM: No free fluid.LYMPH NODES: No lymphadenopathy.VESSELS: Unremarkable. GI TRACT: No distention or wall thickening. BONES AND SOFT TISSUES : Unremarkable. IMPRESSION: 1.A stone in the common bile duct measures 0.6 cm and results in mild intrahepatic ductal dilation. 2.A right upper pole 0.9 cm renal lesion is incompletely evaluated on this noncontrast MRI. 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 3.Diffuse fatty infiltration of the liver. Signed: Vasquez Dowling MDReport Verified Date/Time: 02/06/2019 12:55:19 Reading Location: [facility] [place] [facility] Reading Room POCT-GLUCOSE [id number] 11:33:00 Test Item Value Reference Range Comments POC-GLUCOSE METER (BEAKER) 190 mg/dL 70-110 TESTED AT [facility] [address] [facility] (test makb=9520) [facility] [id number] POCT-GLUCOSE [id number] 06:13:00 Test Item Value Reference Range Comments POC-GLUCOSE METER (BEAKER) 210 mg/dL 70-110 TESTED AT [place] [id number] [facility] (test uprm=8574) [facility] [id number] PROTHROMBIN [id number] 03:06:00 Test Item Value Reference Range Comments PROTIME (BEAKER) (test zzth=523) 15.4 seconds 11.9-14.2 INR (BEAKER) (test tnlv=472) 1.3 <=5.9 Effective 01/03/2019: PT Reference Range ChangeNew: 11.9-14.2 Previous: 11.7- 14.7RECOMMENDED COUMADIN/WARFARIN INR THERAPY RANGESSTANDARD DOSE: 2.0-3.0 Includes: PROPHYLAXIS for venous thrombosis, systemic embolization; TREATMENT for venous thrombosis and/or pulmonary embolus.HIGH RISK: Target INR is2.5-3.5 for patients wiht mechanical heart valves.[id number] 03:06:00 Test Item Value Reference Range Comments MAGNESIUM (BEAKER) (test 1.3 mg/dL 1.6-2.6 Specimen slightly hemolyzed xsbr=643) BASIC METABOLIC [id number] 03:06:00 Test Item Value Reference Range Comments SODIUM (BEAKER) (test 134 meq/L 136-145 bqos=746) POTASSIUM (BEAKER) (test 4.1 meq/L 3.5-5.1 Specimen slightly psas=109) hemolyzed CHLORIDE (BEAKER) (test 100 meq/L 98-107 revl=509) CO2 (BEAKER) (test 24 meq/L 22-29 jtbg=301) BLOOD UREA NITROGEN 11 mg/dL 7-21 (BEAKER) (test ikbf=155) CREATININE (BEAKER) (test 0.82 mg/dL 0.57-1.25 Specimen slightly ngsk=228) hemolyzed GLUCOSE RANDOM (BEAKER) 228 mg/dL 70-105 (test rptw=484) CALCIUM (BEAKER) (test 9.4 mg/dL 8.4-10.2 oqdi=490) EGFR (BEAKER) (test 69 mL/min/1.73 sq m ESTIMATED GFR IS NOT wxjo=9461) ACCURATE CREATININE CLEARANCE IN PREDICTING GLOMERULAR FILTRATION RATE. ESTIMATED GFR IS NOT APPLICABLE FOR DIALYSIS PATIENTS. Specimen slightly ictericHEPATIC FUNCTION [id number] 03:06:00 Test Item Value Reference Range Comments TOTAL PROTEIN (BEAKER) (test 6.9 gm/dL 6.0-8.3 Specimen slightly hemolyzed aibp=379) ALBUMIN (BEAKER) (test 3.6 g/dL 3.5-5.0 Specimen slightly hemolyzed ebsn=3334) BILIRUBIN TOTAL (BEAKER) (test 2.2 mg/dL 0.2-1.2 Specimen slightly hemolyzed rudi=922) BILIRUBIN DIRECT (BEAKER) (test 1.6 mg/dL 0.1-0.5 Specimen slightly hemolyzed glkh=299) ALKALINE PHOSPHATASE (BEAKER) 226 U/L 40-150 (test pnen=753) AST (SGOT) (BEAKER) (test 311 U/L 5-34 Specimen slightly hemolyzed vqzx=213) ALT (SGPT) (BEAKER) (test 328 U/L 6-55 Specimen slightly hemolyzed hnas=856) Specimen slightly ictericCBC W/PLT COUNT & AUTO [id number] 02:50 :00 Test Item Value Reference Range Comments WHITE BLOOD CELL COUNT (BEAKER) (test pcxj=371) 7.6 K/ L 3.5-10.5 RED BLOOD CELL COUNT (BEAKER) (test jino=903) 4.29 M/ L 3.93-5.22 HEMOGLOBIN (BEAKER) (test soes=835) 12.1 GM/DL 11.2-15.7 HEMATOCRIT (BEAKER) (test dmnv=501) 37.1 % 34.1-44.9 MEAN CORPUSCULAR VOLUME (BEAKER) (test bitc=564) 86.5 fL 79.4-94.8 MEAN CORPUSCULAR HEMOGLOBIN (BEAKER) (test 28.2 pg 25.6-32.2 cpls=954) MEAN CORPUSCULAR HEMOGLOBIN CONC (BEAKER) (test 32.6 GM/DL 32.2-35.5 rtds=740) RED CELL DISTRIBUTION WIDTH (BEAKER) (test 14.5 % 11.7-14.4 fovm=637) PLATELET COUNT (BEAKER) (test uwfl=213) 255 K/CU MM 150-450 MEAN PLATELET VOLUME (BEAKER) (test lzxa=257) 11.2 fL 9.4-12.3 NUCLEATED RED BLOOD CELLS (BEAKER) (test 0 /100 WBC 0-0 bany=246) NEUTROPHILS RELATIVE PERCENT (BEAKER) (test 78 % qnwa=217) LYMPHOCYTES RELATIVE PERCENT (BEAKER) (test 14 % lrlf=086) MONOCYTES RELATIVE PERCENT (BEAKER) (test 8 % kexl=044) EOSINOPHILS RELATIVE PERCENT (BEAKER) (test 0 % tncj=506) BASOPHILS RELATIVE PERCENT (BEAKER) (test 0 % cxpy=199) NEUTROPHILS ABSOLUTE COUNT (BEAKER) (test 5.88 K/ L 1.56-6.13 flfu=599) LYMPHOCYTES ABSOLUTE COUNT (BEAKER) (test 1.07 K/ L 1.18-3.74 tmml=103) MONOCYTES ABSOLUTE COUNT (BEAKER) (test 0.58 K/ L 0.24-0.36 uvlj=146) EOSINOPHILS ABSOLUTE COUNT (BEAKER) (test 0.01 K/ L 0.04-0.36 wfcg=499) BASOPHILS ABSOLUTE COUNT (BEAKER) (test 0.02 K/ L 0.01-0.08 drpg=851) IMMATURE GRANULOCYTES-RELATIVE PERCENT (BEAKER) 0 % 0-1 (test cmax=3359) POCT-GLUCOSE [id number] 23:33:00 Test Item Value Reference Range Comments POC-GLUCOSE METER (BEAKER) 241 mg/dL 70-110 TESTED AT [facility] [address] [facility] (test voxy=8170) [facility] [id number]
--- NOTE | 2019-08-06 15:36 | RAD REPORT ---
EXAM DESCRIPTION: Pavel Single View08/06/2019 3:16 pm CLINICAL HISTORY: cough COMPARISON: February 2019 FINDINGS: The lungs appear clear of acute infiltrate. The heart is normal size IMPRESSION: No acute abnormalities displayed
--- NOTE | 2019-08-06 15:46 | ER ---
Nurse's Notes [facility] Name: Laura Khanna Age: 69 yrs Sex: Female : 1950 Arrival Date: 08/06/2019 Time: 13:55 Bed 28 Private MD: Diagnosis: Influenza like illness Presentation: 08/06 14:02 Presenting complaint: Patient states: Chest congestion with productive cough that is sg yellow and thick sputum, reports chills at home, symptoms began . Transition of care: patient was not received from another setting of care. Onset of symptoms was August 06, 2019. Risk Assessment: Do you want to hurt yourself or someone else? Patient reports no desire to harm self or others. Initial Sepsis Screen: Does the patient meet any 2 criteria? No. Patient's initial sepsis screen is negative. Does the patient have a suspected source of infection? No. Patient's initial sepsis screen is negative. Care prior to arrival: None. 14:02 Method Of Arrival: Ambulatory sg 14:02 Acuity: ZACARIAS 3 sg Historical: - Allergies: 14:04 Iodine; sg 14:04 Levaquin; sg 14:04 PENICILLINS; sg - PMHx: 14:04 Diabetes - NIDDM; Hypertension; Hypothyroidism; Pancreatitis; sg - PSHx: 14:04 Hysterectomy; Cholecystectomy; Heart stents; Tonsillectomy; left shoulder; left thumb; sg - Immunization history:: Adult Immunizations up to date. - Social history:: Smoking status: Patient/guardian denies using tobacco. - Ebola Screening: : Patient negative for fever greater than or equal to 101.5 degrees Fahrenheit, and additional compatible Ebola Virus Disease symptoms Patient denies exposure to infectious person Patient denies travel to an Ebola-affected area in the 21 days before illness onset No symptoms or risks identified at this time. Screenin:02 Abuse screen: Denies threats or abuse. Denies injuries from another. Nutritional rv screening: No deficits noted. Tuberculosis screening: No symptoms or risk factors identified. Fall Risk None identified. Assessment: 14:00 General: Appears in no apparent distress. comfortable, Behavior is calm, cooperative. rv 14:00 Pain: Denies pain. Neuro: Level of Consciousness is awake, alert, obeys commands, rv Oriented to person, place, time, situation. Cardiovascular: Patient's skin is warm and dry. Respiratory: Airway is patent. Derm: Skin is intact. Vital Signs: 14:04 BP 214 / 108; Pulse 87; Resp 16; Temp 98.8; Pulse Ox 100% on R/A; sg 14:30 BP 145 / 98; Pulse 86; Resp 15; Pulse Ox 100% on R/A; rv 16:01 BP 146 / 96; Pulse 87; Resp 18; Pulse Ox 98% on R/A; rv ED Course: 13:55 Patient arrived in ED. mr 14:03 Triage completed. sg 14:03 Arm band placed on. sg 14:11 Romaine Arita, RN is Primary Nurse. rv 14:14 Errol Godfrey MD is Attending Physician. ps1 15:17 CXR XRAY In Process Unspecified. EDMS 16:02 Patient has correct armband on for positive identification. Bed in low position. Call rv light in reach. Side rails up X 1. Pulse ox on. NIBP on. 16:02 No provider procedures requiring assistance completed. Patient did not have IV access rv during this emergency room visit. Administered Medications: No medications were administered Outcome: 15:44 Discharge ordered by . ps1 16:03 Discharged to home ambulatory. rv 16:03 Condition: good 16:03 Discharge instructions given to patient, Instructed on discharge instructions, follow up and referral plans. medication usage, Demonstrated understanding of instructions, follow-up care, medications, Prescriptions given X 3. 16:03 Patient left the ED. rv Signatures: Dispatcher [employer] Arthur Shepard RN RN Trina Hinds mr Errol Godfrey MD MD ps1 Romaine Arita RN RN rv
--- NOTE | 2019-08-06 15:46 | EDPHYS ---
Physician Documentation [facility] Name: Laura Khanna Age: 69 yrs Sex: Female : 1950 Arrival Date: 08/06/2019 Time: 13:55 Bed 28 Private MD: ED Physician Errol Godfrey HPI: 08/06 15:46 This 69 yrs old Female presents to ER via Ambulatory with complaints of Flu ps1 Symptoms. 15:46 patient has headache, sore throat, cough, congestion, and body aches for 2 weeks. No ps1 fever. Hx of HTN. Elevated today. Missed dose. Took ibuprofen. Has had cough for a month. Non-productive. . Historical: - Allergies: 14:04 Iodine; sg 14:04 Levaquin; sg 14:04 PENICILLINS; sg - PMHx: 14:04 Diabetes - NIDDM; Hypertension; Hypothyroidism; Pancreatitis; sg - PSHx: 14:04 Hysterectomy; Cholecystectomy; Heart stents; Tonsillectomy; left shoulder; left thumb; sg - Immunization history:: Adult Immunizations up to date. - Social history:: Smoking status: Patient/guardian denies using tobacco. - Ebola Screening: : Patient negative for fever greater than or equal to 101.5 degrees Fahrenheit, and additional compatible Ebola Virus Disease symptoms Patient denies exposure to infectious person Patient denies travel to an Ebola-affected area in the 21 days before illness onset No symptoms or risks identified at this time. ROS: 15:46 Abdomen/GI: Negative for abdominal pain, nausea, vomiting, diarrhea, and constipation, ps1 Skin: Negative for injury, rash, and discoloration, Neuro: Negative for headache, weakness, numbness, tingling, and seizure. 15:46 Constitutional: Positive for body aches, chills, fatigue, fever, malaise. 15:46 ENT: Positive for sinus congestion. 15:46 Respiratory: Positive for cough. Exam: 15:46 Constitutional: This is a well developed, well nourished patient who is awake, alert, ps1 and in no acute distress. Head/Face: Normocephalic, atraumatic. Eyes: Pupils equal round and reactive to light, extra-ocular motions intact. Lids and lashes normal. Conjunctiva and sclera are non-icteric and not injected. Chest/axilla: Normal chest wall appearance and motion. Nontender with no deformity. No lesions are appreciated. Cardiovascular: Regular rate and rhythm. No gallops, murmurs, or rubs. Normal PMI, no JVD. No pulse deficits. Respiratory: Lungs have equal breath sounds bilaterally, clear to auscultation and percussion. No rales, rhonchi or wheezes noted. No increased work of breathing, no retractions or nasal flaring. Abdomen/GI: Soft, non-tender, with normal bowel sounds. No distension or tympany. No guarding or rebound. No evidence of tenderness throughout. Skin: Warm, dry with normal turgor. Normal color with no rashes, no lesions, and no evidence of cellulitis. MS/ Extremity: Pulses equal, no cyanosis. Neurovascular intact. Full, normal range of motion. Neuro: Awake and alert, GCS 15, oriented to person, place, time, and situation. Cranial nerves II-XII grossly intact. Sensory grossly intact. Vital Signs: 14:04 BP 214 / 108; Pulse 87; Resp 16; Temp 98.8; Pulse Ox 100% on R/A; sg 14:30 BP 145 / 98; Pulse 86; Resp 15; Pulse Ox 100% on R/A; rv 16:01 BP 146 / 96; Pulse 87; Resp 18; Pulse Ox 98% on R/A; rv MDM: 15:04 Patient medically screened. ps1 15:46 Data reviewed: vital signs, nurses notes, radiologic studies, and as a result, I will ps1 discharge patient. Counseling: I had a detailed discussion with the patient and/or guardian regarding: the historical points, exam findings, and any diagnostic results supporting the discharge/admit diagnosis, the presence of at least one elevated blood pressure reading (>120/80) during this emergency department visit, radiology results, to return to the emergency department if symptoms worsen or persist or if there are any questions or concerns that arise at home. 08/06 15:04 Order name: CXR XRAY; Complete Time: 15:43 ps1 Administered Medications: No medications were administered Disposition: 08/06/19 15:44 Discharged to Home. Impression: Influenza like illness. - Condition is Stable. - Discharge Instructions: Hypertension, Upper Respiratory Infection, Adult. - Prescriptions for Tessalon Perles 100 mg Oral Capsule - take 1 capsule by ORAL route every 8 hours As needed; 15 capsule. chlorpheniramine maleate 4 mg Oral Tablet - take 1 tablet by ORAL route every 6 hours As needed; 30 tablet. acetaminophen- codeine 120-12 mg/5 mL Oral Elixir - take 10 milliliters by ORAL route every 6 hours; 120 milliliter. - Medication Reconciliation Form, Thank You Letter, Antibiotic Education, Prescription Opioid Use form. - Follow up: Private Physician; When: As needed; Reason: Further diagnostic work-up, Recheck today's complaints, Continuance of care, Re-evaluation by your physician. Follow up: Emergency Department; When: As needed; Reason: Fever > 102 F, Trouble breathing, Worsening of condition. - Problem is new. - Symptoms are unchanged. Signatures: Dispatcher [employer] EDMS Arthur Claire RN RN sg Errol Godfrey MD MD ps1 Romaine Arita RN RN rv Corrections: (The following items were deleted from the chart) 16:03 15:44 08/06/2019 15:44 Discharged to Home. Impression: Influenza like illness. rv Condition is Stable. Forms are Medication Reconciliation Form, Thank You Letter, Antibiotic Education, Prescription Opioid Use. Follow up: Private Physician; When: As needed; Reason: Further diagnostic work-up, Recheck today's complaints, Continuance of care, Re-evaluation by your physician. Follow up: Emergency Department; When: As needed; Reason: Fever > 102 F, Trouble breathing, Worsening of condition. Problem is new. Symptoms are unchanged. ps1
[2019-08-06 16:26] VITALS: TEMP 98.8
[2019-08-06 16:29] VITALS: BP 146/96; O2SAT 98
== END 2019-08-06 16:03 | disposition home or self-care (01) ==
LOC: ER 13:39
DX: J11.1 Influenza due to unidentified influenza virus with other respiratory manifestations (principal); I10 Essential (primary) hypertension; Z88.0 Allergy status to penicillin; Z88.1 Allergy status to other antibiotic agents; Z91.048 Other nonmedicinal substance allergy status; Z95.818 Presence of other cardiac implants and grafts
CPT/HCPCS: 71045; 99283

== ENCOUNTER 2019-10-22 12:16 | Observation (INO) | payer OTHER ==
--- OUTSIDE RECORDS SUMMARY | 2019-10-22 12:19 | XMS REPORT ---
:1950 [facility] Address [address] [place] [address] [address] [place] [address] Care Team Providers Name Role Phone ISAKATELYN GROVERSamira Unavailable Unavailable Problems This patient has no known problems. Allergies, Adverse Reactions, Alerts This patient has no known allergies or adverse reactions. Medications This patient has no known medications. Results Test Description Test Time Test Comments Text Results Atomic Results Result Comments [place], ERCP 2019-02-07 22:39:00 INTRA OP IMAGINGReason for FINAL REPORT PATIENT ID: exam:->CBD STONES [id number] Examination: ERCP 4 fluoroscopic spot views were obtained during the procedure by the ordering service. Images are nondiagnostic as no radiologist was present at the time of imaging. Fluoroscopic time was 122.2 seconds. Please see the procedure report for details. Signed: Reyes Camp Verified Date/Time: 02/07/2019 22:39:15 Reading Location: [address] Reading Room -GLUCOSE METER 2019-02-07 18:25:00 Test Item Value Reference Range Comments POC-GLUCOSE METER (BEAKER) (test 200 mg/dL 70-110 TESTED AT [address] hzdu=3645) [facility] [address] POCT-GLUCOSE [id number] 15:42:00 Test Item Value Reference Range Comments POC-GLUCOSE METER (BEAKER) 164 mg/dL 70-110 TESTED AT [address] (test oium=7553) [facility] [address] POCT-GLUCOSE [id number] 12:01:00 Test Item Value Reference Range Comments POC-GLUCOSE METER (BEAKER) 189 mg/dL 70-110 TESTED AT [address] (test zbkw=1981) [facility] [address] POCT-GLUCOSE [id number] 05:00:00 Test Item Value Reference Range Comments POC-GLUCOSE METER (BEAKER) 196 mg/dL 70-110 TESTED AT [address] (test moqn=0634) [facility] [address] POCT-GLUCOSE [id number] 00:28:00 Test Item Value Reference Range Comments POC-GLUCOSE METER (BEAKER) 218 mg/dL 70-110 TESTED AT [address] (test jdyz=9686) [facility] [address] POCT-GLUCOSE [id number] 17:58:00 Test Item Value Reference Range Comments POC-GLUCOSE METER (BEAKER) 155 mg/dL 70-110 TESTED AT [address] (test fdxw=8767) [facility] [address] MR, ABDOMEN, [id number] 12:55:00FINAL REPORT TECHNIQUE: MRI of the abdomen [...] 3.Diffuse fatty infiltration of the liver. Signed: Horn, Vasquez MDReport Verified Date/Time: 02/06/2019 12:55:19 Reading Location: [facility] B1 C013Y CT Body Reading Room POCT-GLUCOSE [id number] 11:33:00 Test Item Value Reference Range Comments POC-GLUCOSE METER (BEAKER) 190 mg/dL 70-110 TESTED AT [facility] [address] [facility] (test hvep=4513) [facility] [address] POCT-GLUCOSE [id number] 06:13:00 Test Item Value Reference Range Comments POC-GLUCOSE METER (BEAKER) 210 mg/dL 70-110 TESTED AT [address] (test tjoy=7899) [facility] [address] PROTHROMBIN [id number] 03:06:00 Test Item Value Reference Range Comments PROTIME (BEAKER) (test xmhi=918) 15.4 seconds 11.9-14.2 INR (BEAKER) (test pbnq=627) 1.3 <=5.9 Effective 01/03/2019: PT Reference Range ChangeNew: 11.9-14.2 Previous: 11.7- 14.7RECOMMENDED COUMADIN/WARFARIN INR THERAPY RANGESSTANDARD DOSE: 2.0-3.0 Includes: PROPHYLAXIS for venous thrombosis, systemic embolization; TREATMENT for venous thrombosis and/or pulmonary embolus.HIGH RISK: Target INR is2.5-3.5 for patients wiht mechanical heart valves.[id number] 03:06:00 Test Item Value Reference Range Comments MAGNESIUM (BEAKER) (test 1.3 mg/dL 1.6-2.6 Specimen slightly hemolyzed dseu=162) BASIC METABOLIC [id number] 03:06:00 Test Item Value Reference Range Comments SODIUM (BEAKER) (test 134 meq/L 136-145 qjaq=439) POTASSIUM (BEAKER) (test 4.1 meq/L 3.5-5.1 Specimen slightly bhbi=909) hemolyzed CHLORIDE (BEAKER) (test 100 meq/L 98-107 hsaj=532) CO2 (BEAKER) (test 24 meq/L 22-29 mjxj=109) BLOOD UREA NITROGEN 11 mg/dL 7-21 (BEAKER) (test kxdk=377) CREATININE (BEAKER) (test 0.82 mg/dL 0.57-1.25 Specimen slightly xslq=294) hemolyzed GLUCOSE RANDOM (BEAKER) 228 mg/dL 70-105 (test fsdf=027) CALCIUM (BEAKER) (test 9.4 mg/dL 8.4-10.2 nhuu=625) EGFR (BEAKER) (test 69 mL/min/1.73 sq m ESTIMATED GFR IS NOT nrdt=0294) ACCURATE CREATININE CLEARANCE IN PREDICTING GLOMERULAR FILTRATION RATE. ESTIMATED GFR IS NOT APPLICABLE FOR DIALYSIS PATIENTS. Specimen slightly ictericHEPATIC FUNCTION [id number] 03:06:00 Test Item Value Reference Range Comments TOTAL PROTEIN (BEAKER) (test 6.9 gm/dL 6.0-8.3 Specimen slightly hemolyzed bqct=599) ALBUMIN (BEAKER) (test 3.6 g/dL 3.5-5.0 Specimen slightly hemolyzed uynx=8563) BILIRUBIN TOTAL (BEAKER) (test 2.2 mg/dL 0.2-1.2 Specimen slightly hemolyzed kmoh=310) BILIRUBIN DIRECT (BEAKER) (test 1.6 mg/dL 0.1-0.5 Specimen slightly hemolyzed omgh=223) ALKALINE PHOSPHATASE (BEAKER) 226 U/L 40-150 (test gztp=609) AST (SGOT) (BEAKER) (test 311 U/L 5-34 Specimen slightly hemolyzed geiy=525) ALT (SGPT) (BEAKER) (test 328 U/L 6-55 Specimen slightly hemolyzed cdyv=558) Specimen slightly ictericCBC W/PLT COUNT & AUTO [id number] 02:50 :00 Test Item Value Reference Range Comments WHITE BLOOD CELL COUNT (BEAKER) (test hmfs=460) 7.6 K/ L 3.5-10.5 RED BLOOD CELL COUNT (BEAKER) (test iqwh=125) 4.29 M/ L 3.93-5.22 HEMOGLOBIN (BEAKER) (test sozt=912) 12.1 GM/DL 11.2-15.7 HEMATOCRIT (BEAKER) (test ifck=147) 37.1 % 34.1-44.9 MEAN CORPUSCULAR VOLUME (BEAKER) (test ymfp=485) 86.5 fL 79.4-94.8 MEAN CORPUSCULAR HEMOGLOBIN (BEAKER) (test 28.2 pg 25.6-32.2 rjsp=921) MEAN CORPUSCULAR HEMOGLOBIN CONC (BEAKER) (test 32.6 GM/DL 32.2-35.5 vwxr=008) RED CELL DISTRIBUTION WIDTH (BEAKER) (test 14.5 % 11.7-14.4 vtcj=400) PLATELET COUNT (BEAKER) (test csan=290) 255 K/CU MM 150-450 MEAN PLATELET VOLUME (BEAKER) (test ysje=144) 11.2 fL 9.4-12.3 NUCLEATED RED BLOOD CELLS (BEAKER) (test 0 /100 WBC 0-0 ydys=628) NEUTROPHILS RELATIVE PERCENT (BEAKER) (test 78 % gilu=182) LYMPHOCYTES RELATIVE PERCENT (BEAKER) (test 14 % mced=934) MONOCYTES RELATIVE PERCENT (BEAKER) (test 8 % iaod=389) EOSINOPHILS RELATIVE PERCENT (BEAKER) (test 0 % zqqk=660) BASOPHILS RELATIVE PERCENT (BEAKER) (test 0 % pwhl=727) NEUTROPHILS ABSOLUTE COUNT (BEAKER) (test 5.88 K/ L 1.56-6.13 twas=734) LYMPHOCYTES ABSOLUTE COUNT (BEAKER) (test 1.07 K/ L 1.18-3.74 npyt=242) MONOCYTES ABSOLUTE COUNT (BEAKER) (test 0.58 K/ L 0.24-0.36 onjh=483) EOSINOPHILS ABSOLUTE COUNT (BEAKER) (test 0.01 K/ L 0.04-0.36 qjav=521) BASOPHILS ABSOLUTE COUNT (BEAKER) (test 0.02 K/ L 0.01-0.08 qbsh=022) IMMATURE GRANULOCYTES-RELATIVE PERCENT (BEAKER) 0 % 0-1 (test kbfw=5845) POCT-GLUCOSE [id number] 23:33:00 Test Item Value Reference Range Comments POC-GLUCOSE METER (BEAKER) 241 mg/dL 70-110 TESTED AT [facility] [address] [facility] (test srwa=6903) [facility] [address]
[2019-10-22] MEDS ORDERED: NA CHLORIDE 0.9% 500 ML ONE (12:55)
[2019-10-22] MEDS ORDERED: ASPIRIN 81 MG CHEWABLE TABLET ONE (12:55)
[2019-10-22 12:58] LABS: Absolute Lymphocytes (CBC) 1.9 K/uL (0.7-4.9); Basophils % 1.2 % (0-1.3); Hematocrit 44.3 % (36.0-45.0); Lymphocytes % 26.2 % (15.3-44.8); MPV 8.6 fL (7.6-11.3)
[2019-10-22 13:01] LABS: Protime INR 0.93
--- NOTE | 2019-10-22 13:07 | RAD REPORT ---
EXAM DESCRIPTION: RAD - Chest Single View - 10/22/2019 12:54 pm CLINICAL HISTORY: CHEST PAIN COMPARISON: August 06 TECHNIQUE: AP portable chest image was obtained 10/22/2019 12:54 pm . FINDINGS: Lungs are clear. Heart and vasculature are normal. No measurable pleural effusion and no p neumothorax. No acute bony abnormality seen. No acute aortic findings suspected. IMPRESSION: No acute cardiopulmonary process. No significant change from comparison.
[2019-10-22 13:41] LABS: ALT/SGPT 62 U/L (12-78); AST/SGOT 38 U/L (15-37); Albumin 3.7 g/dL (3.4-5.0); Alkaline Phosphatase 79 U/L (45-117); BUN Blood Urea Nitrogen 14 mg/dL (7-18); Bicarbonate 26 mmol/L (21-32); Bilirubin Direct 0.1 mg/dL (0-0.2); Bilirubin Total 0.4 mg/dL (0.2-1.0); Glucose Level 213 mg/dL (74-106); Magnesium 1.7 mg/dL (1.8-2.4); NT PRO-BNP 52 pg/mL (<125); Potassium 3.8 mmol/L (3.5-5.1); Protein, Total 8.2 g/dL (6.4-8.2); Sodium Level 138 mmol/L (136-145); Troponin (Emerg Dept Use Only) < 0.02 ng/mL (0.0-0.045)
--- NOTE | 2019-10-22 13:58 | ER ---
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 The patient has NOT had contact with any known and/or suspected case of coronavirus. Proceed with normal triage procedures. Ebola Screen: No symptoms or risks identified at this time. Initial Sepsis Screen: Does the patient meet any 2 criteria? No. Patient's initial sepsis screen is negative. Does the patient have a suspected source of infection? No. Patient's initial sepsis screen is negative. Risk Assessment: Do you want to hurt yourself or someone else? Patient reports no desire to harm self or others. 12:36 Method Of Arrival: Ambulatory hb 12:36 Acuity: ZACARIAS 3 hb Triage Assessment: 12:37 General: Appears in no apparent distress. Behavior is cooperative, anxious. Pain: Pain hb currently is 8 out of 10 on a pain scale. EENT: No signs and/or symptoms were reported regarding the EENT system. Neuro: Level of Consciousness is awake, alert, obeys commands, Oriented to person, place, time, situation. Cardiovascular: Reports chest pain, Heart tones S1 S2 present Capillary refill < 3 seconds Patient's skin is warm and dry. Respiratory: Reports shortness of breath at rest Airway is patent Respiratory effort is even, unlabored, Respiratory pattern is regular, symmetrical, Breath sounds are clear bilaterally. GI: Reports nausea. : No signs and/or symptoms were reported regarding the genitourinary system. Derm: Skin is intact, is healthy with good turgor, Skin is pink, warm \T\ dry. Musculoskeletal: No signs and/or symptoms reported regarding the musculoskeletal system. Historical: - Allergies: 12:38 Iodine; hb 12:38 Levaquin; hb 12:38 PENICILLINS; hb - Home Meds: 12:38 amlodipine 5 mg tab [Active]; aspirin 81 mg Oral TbEC 1 tab once daily [Active]; hb atorvastatin 80 mg Oral tab 1 tab once daily [Active]; irbesartan 300 mg Oral tab 1 tab once daily [Active]; Levemir 54 units twice daily on sliding scale subcutaneous [Active]; levothyroxine 75 mcg tab 1 tab once daily [Active]; metformin 1,000 mg Oral tab 1 tab 2 times per day [Active]; omeprazole 40 mg Oral cpDR 1 cap once daily [Active]; - PMHx: 12:38 Diabetes - NIDDM; Hypertension; Hypothyroidism; Pancreatitis; hb - PSHx: 12:38 Hysterectomy; Cholecystectomy; Heart stents; Tonsillectomy; left shoulder; left thumb; hb - Immunization history:: Adult Immunizations up to date. - Social history:: Smoking status: Patient denies any tobacco usage or history of. Patient/guardian denies using alcohol, street drugs, The patient lives. - Family history:: not pertinent. Screenin:39 Abuse screen: Denies injuries from another. Nutritional screening: No deficits noted. hb Tuberculosis screening: No symptoms or risk factors identified. Fall Risk None identified. Assessment: 12:50 General: SEE TRIAGE. hb 13:30 Reassessment: Patient appears in no apparent distress at this time. No changes from hb previously documented assessment. Patient is alert, oriented x 3, equal unlabored respirations, skin warm/dry/pink. 14:30 Reassessment: Patient appears in no apparent distress at this time. No changes from hb previously documented assessment. Patient is alert, oriented x 3, equal unlabored respirations, skin warm/dry/pink. Vital Signs: 12:36 BP 186 / 116; Pulse 93; Resp 17; Temp 98.2; Pulse Ox 97% ; Weight 86.18 kg; Height 5 hb ft. 6 in. (167.64 cm); Pain 8/10; 14:00 BP 178 / 75; Pulse 79; Resp 21; Pulse Ox 97% on R/A; hb 15:00 BP 152 / 62; Pulse 76; Resp 20; Pulse Ox 99% on R/A; hb 12:36 Body Mass Index 30.67 (86.18 kg, 167.64 cm) hb ED Course: 12:21 Patient arrived in ED. ag5 12:29 Stephanie Morales MD is Attending Physician. ma2 12:36 Nowak, Mayra, RN is Primary Nurse. hb 12:37 Triage completed. hb 12:38 Arm band placed on. hb 12:42 Inserted saline lock: 20 gauge in right antecubital area, using aseptic technique. hb Blood collected. 12:45 EKG done, by ED staff, reviewed by Stephanie Morales MD. em1 12:52 XRAY Chest (1 view) In Process Unspecified. EDMS 13:57 Kin Hernandez MD is Hospitalizing Provider. ma2 Administered Medications: 12:56 Drug: Aspirin Chewable Tablet 324 mg Route: PO; hb 12:56 Drug: NS 0.9% 500 ml Route: IV; Rate: 1 bolus; Site: right antecubital; hb Outcome: 13:57 Decision to Hospitalize by Provider. ma2 16:09 Patient left the ED. bp Signatures: Dispatcher [employer] Demian Klein em1 Mayra Nowak, RN RN Cal Guido RN Stephanie Mcintosh MD MD ma2 Rome Cuevas ag5 Corrections: (The following items were deleted from the chart) 15:12 12:42 Inserted saline lock: 20 gauge 24 gauge antecubital area, using aseptic hb technique. Blood collected. hb
--- NOTE | 2019-10-22 13:58 | EDPHYS ---
Physician Documentation [facility] Name: Laura Khanna Age: 69 yrs Sex: Female : 1950 Arrival Date: 10/22/2019 Time: 12:21 Bed 3 Private MD: ED Physician Stephanie Morales HPI: 10/21 13:54 This 69 yrs old Female presents to ER via Ambulatory with complaints of Chest ma2 Pain. 13:54 The patient or guardian reports chest pain that is located primarily in the substernal ma2 area. Associated signs and symptoms: Pertinent negatives: abdominal pain, dizziness, lower extremity swelling, nausea. The chest pain is described as a heaviness. Severity of pain: At its worst the pain was moderate in the emergency department the pain has resolved. Historical: - Allergies: 12:38 Iodine; hb 12:38 Levaquin; hb 12:38 PENICILLINS; hb - Home Meds: 12:38 amlodipine 5 mg tab [Active]; aspirin 81 mg Oral TbEC 1 tab once daily [Active]; hb atorvastatin 80 mg Oral tab 1 tab once daily [Active]; irbesartan 300 mg Oral tab 1 tab once daily [Active]; Levemir 54 units twice daily on sliding scale subcutaneous [Active]; levothyroxine 75 mcg tab 1 tab once daily [Active]; metformin 1,000 mg Oral tab 1 tab 2 times per day [Active]; omeprazole 40 mg Oral cpDR 1 cap once daily [Active]; - PMHx: 12:38 Diabetes - NIDDM; Hypertension; Hypothyroidism; Pancreatitis; hb - PSHx: 12:38 Hysterectomy; Cholecystectomy; Heart stents; Tonsillectomy; left shoulder; left thumb; hb - Immunization history:: Adult Immunizations up to date. - Social history:: Smoking status: Patient denies any tobacco usage or history of. Patient/guardian denies using alcohol, street drugs, The patient lives. - Family history:: not pertinent. ROS: 13:56 Constitutional: Negative for fever, chills, and weight loss. ma2 13:56 All other systems are negative. Exam: 13:56 Constitutional: This is a well developed, well nourished patient who is awake, alert, ma2 and in no acute distress. Chest/axilla: Normal chest wall appearance and motion. Nontender with no deformity. No lesions are appreciated. Cardiovascular: Regular rate and rhythm with a normal S1 and S2. No gallops, murmurs, or rubs. Normal PMI, no JVD. No pulse deficits. Respiratory: Lungs have equal breath sounds bilaterally, clear to auscultation and percussion. No rales, rhonchi or wheezes noted. No increased work of breathing, no retractions or nasal flaring. Abdomen/GI: Soft, non-tender, with normal bowel sounds. No distension or tympany. No guarding or rebound. No evidence of tenderness throughout. Vital Signs: 12:36 BP 186 / 116; Pulse 93; Resp 17; Temp 98.2; Pulse Ox 97% ; Weight 86.18 kg; Height 5 hb ft. 6 in. (167.64 cm); Pain 8/10; 14:00 BP 178 / 75; Pulse 79; Resp 21; Pulse Ox 97% on R/A; hb 15:00 BP 152 / 62; Pulse 76; Resp 20; Pulse Ox 99% on R/A; hb 12:36 Body Mass Index 30.67 (86.18 kg, 167.64 cm) hb MDM: 12:29 Patient medically screened. ma2 13:56 Differential diagnosis: abnormal EKG, gastroesophageal reflux disease (GERD), stable ma2 angina. The patient was given aspirin in the Emergency Department. LUPE Risk Score: 1- Known CAD, 1 - ASA use in past 7 days, TOTAL SCORE = 2. Data reviewed: vital signs, nurses notes. Counseling: I had a detailed discussion with the patient and/or guardian regarding: the historical points, exam findings, and any diagnostic results supporting the discharge/admit diagnosis, the presence of at least one elevated blood pressure reading (>120/80) during this emergency department visit, the need for further work-up and treatment in the hospital. 10/21 12:36 Order name: Basic Metabolic Panel; Complete Time: 13:42 va2 10/21 12:36 Order name: CBC with Diff; Complete Time: 13:25 ma2 10/21 12:36 Order name: LFT's; Complete Time: 13:42 va2 10/21 12:36 Order name: Magnesium; Complete Time: 13:42 va2 10/21 12:36 Order name: NT PRO-BNP; Complete Time: 13:42 va2 10/21 12:36 Order name: PT-INR; Complete Time: 13:25 ma2 10/21 12:36 Order name: Troponin (emerg Dept Use Only); Complete Time: 13:42 ma2 10/21 14:37 Order name: Basic Metabolic Panel EDMT 10/21 14:37 Order name: Basic Metabolic Panel [facility] 10/21 14:37 Order name: CBC with Automated Diff EDMS 10/21 14:37 Order name: CBC with Automated Diff EDMT 10/21 14:37 Order name: Troponin I EDMT 10/21 14:37 Order name: Troponin I EDMT 10/21 14:37 Order name: Troponin I [facility] 10/21 12:36 Order name: XRAY Chest (1 view); Complete Time: 13:25 ma2 10/21 12:36 Order name: EKG; Complete Time: 12:37 ma2 10/21 12:36 Order name: Cardiac monitoring; Complete Time: 12:39 ma2 10/21 12:36 Order name: EKG - Nurse/Tech; Complete Time: 12:39 ma2 10/21 12:36 Order name: IV Saline Lock; Complete Time: 12:39 ma2 10/21 12:36 Order name: Labs collected and sent; Complete Time: 12:39 ma2 10/21 12:36 Order name: O2 Per Protocol; Complete Time: 12:39 ma2 10/21 12:36 Order name: O2 Sat Monitoring; Complete Time: 12:39 ma2 10/21 14:36 Order name: CONS Physician Consult [facility] 10/21 14:37 Order name: EKG Electrocardiogram [facility] 10/21 14:37 Order name: EKG Electrocardiogram [facility] 10/21 14:37 Order name: EKG Electrocardiogram [facility] 10/21 14:37 Order name: EKG Electrocardiogram EDMT Administered Medications: 12:56 Drug: Aspirin Chewable Tablet 324 mg Route: PO; hb 12:56 Drug: NS 0.9% 500 ml Route: IV; Rate: 1 bolus; Site: right antecubital; hb Disposition: 10/22/19 13:57 Hospitalization ordered by Kin Hernandez for Observation. Preliminary diagnosis is Other chest pain. - Bed requested for Telemetry/MedSurg (observation). - Status is Observation. bp - Condition is Stable. - Problem is new. - Symptoms are unchanged. Signatures: Dispatcher [employer] EDMS Lauryn Byrd bd Chicho Ernandez PA PA cp Baxter, Heather, RN RN hb Cal Lebron RN RN bp Stephanie Morales MD MD ma2 Corrections: (The following items were deleted from the chart) 14:55 13:57 Hospitalization Ordered by Kin Hernandez MD for Observation. Preliminary bd diagnosis is Other chest pain. Bed requested for Telemetry/MedSurg (observation). Status is Observation. Condition is Stable. Problem is new. Symptoms are unchanged. ma2 16:09 14:55 10/22/2019 13:57 Hospitalization Ordered by Kin Hernandez MD for Observation. bp Preliminary diagnosis is Other chest pain. Bed requested for Telemetry/MedSurg (observation). Status is Observation. Condition is Stable. Problem is new. Symptoms are unchanged. bd
--- NOTE | 2019-10-22 14:10 | EKG ---
Test Date: 2019-10-22 Test Time: 12:38:17 Wagon Washer: NATHALY MEASUREMENT RESULTS: Intervals: Rate: 86 LA: 154 QRSD: 128 QT: 394 QTc: 471 [place]: P: 66 LA: 154 QRS: -60 T: 89 INTERPRETIVE STATEMENTS: Normal sinus rhythm Left axis deviation Left bundle branch block Abnormal ECG Compared to ECG 02/05/2019 17:40:33 No significant changes Electronically Signed On 10-22-19 14:10:06 CDT by Cole Almanzar
[2019-10-22] MEDS ORDERED: PRASUGREL (EFFIENT) 10 MG TAB PO ONE (16:32)
[2019-10-22] MEDS ORDERED: predniSONE 20 MG TAB PO ONE (16:34)
[2019-10-22 16:37] VITALS: BMI 36.8
--- NOTE | 2019-10-22 18:06 | CON ---
History Of Present Illness: Mrs. Khanna started to have chest pain and shortness of breath today. I n March 2018, she had a proximal LAD stent. She did well after that with no signs of the stent clos ing, but this is actually her fourth time to be in the hospital since the stent with chest pain. Non invasive tests have been normal and today her EKG and enzymes would not suggest this is a cardiac korina nt, but what she had was pressure and tightness, dizziness, nausea, sweating, feeling of doom. The p atient other than having an intracoronary stent proximal LAD, had normal coronary arteries everywhere else. She has underlying hypertension, diabetes, dyslipidemia, obesity. She uses no tobacco. Outpatient Medications: Metformin, omeprazole, aspirin, levothyroxine, irbesartan, amlodipine, insul in, atorvastatin. Allergies: SHE IS ALLERGIC TO LEVOFLOXACIN, PENICILLINS, X-RAY CONTRAST MATERIAL, POVIDONE IODINE, A ND SOAP. Physical Examination: General: She appears to be her stated age. Alert, oriented, pleasant. She is obese, but her weight has not been recorded as of yet. Vital Signs: Her blood pressure was 186/116 in the ER. The more recent blood pressure is 152/62, pu lse 76, respirations 20, afebrile, body mass index 30.7. HEENT: Normal. Neck: Carotids, no bruit. Heart: Within normal limits. Abdomen: Soft. Extremities: Within normal limits. Diagnostic Data: The EKG does not show infarction, injury, or ischemia, but there is a left bundle-b ranch block. Recommendations: The patient to undergo a cardiac cath tomorrow. The patient seems to understand th e procedure, potential benefits, indications, risks, and agrees to proceed. We will hold metformin. We will give her prednisone tonight, Solu-Medrol just before her cardiac cath to minimize the risk o f allergic reaction to the x-ray contrast material. Do a cardiac cath and possible stent. LIANNE/ALFRED Voice ID: [id number] Report ID: [id number]
[2019-10-22] MEDS ORDERED: D50W 25 GM/50 ML SYRINGE/VIAL IV PRN (18:56)
[2019-10-22] MEDS ORDERED: GLUCAGON 1 MG/VIAL IM PRN (18:56)
[2019-10-22] MEDS ORDERED: ACETAMINOPHEN 500 MG TAB PO PRN (20:48)
[2019-10-22] MEDS: INSULIN -REGULAR HUMAN 50 UNIT/0.5 ML ML SQ SCH (20:54)
[2019-10-22] MEDS: IRBESARTAN 150 MG TAB PO SCH (20:55)
[2019-10-22] MEDS: ATORVASTATIN 80 MG TAB PO SCH (20:57)
[2019-10-22] MEDS ORDERED: ATORVASTATIN 40 MG TAB PO SCH (21:00)
[2019-10-22 22:41] LABS: Urine Appearance CLEAR; Urine Bilirubin NEGATIVE (NEG); Urine Blood NEGATIVE (NEG); Urine Color YELLOW; Urine Glucose 3+ (NEG); Urine Protein NEGATIVE (NEG); Urine Specific Gravity 1.015 (1.005-1.030); Urine Urobilinogen 0.2 mg/dL (0.2-1.0); Urine pH 7.5 (5.0-7.0)
[2019-10-22 22:45] LABS: Urine Microscopic Reflex NO UMIC
[2019-10-23] MEDS: INSULIN -REGULAR HUMAN 50 UNIT/0.5 ML ML SQ SCH ×6 (00:10→21:34)
[2019-10-23] MEDS ORDERED: NA CHLORIDE 0.9% 1,000 ML ONE (03:11)
[2019-10-23 05:48] LABS: Absolute Lymphocytes (CBC) 1.3 K/uL (0.7-4.9); Basophils % 0.4 % (0-1.3); Hematocrit 40.5 % (36.0-45.0); Lymphocytes % 14.9 % (15.3-44.8); MPV 9.1 fL (7.6-11.3); RBC Red Blood Cell Count 4.67 M/uL (3.86-4.86)
[2019-10-23] MEDS: VALSARTAN 160 MG TAB PO SCH (06:20)
[2019-10-23] MEDS: LEVOTHYROXINE SOD 0.075 MG TAB PO SCH (06:20)
[2019-10-23] MEDS: PANTOPRAZOLE 40MG TABLET PO SCH (06:20)
[2019-10-23] MEDS: ASPIRIN 81 MG CHEWABLE TABLET PO SCH (06:20)
[2019-10-23] MEDS: AMLODIPINE 5 MG TAB PO SCH (06:20)
[2019-10-23] MEDS ORDERED: ASPIRIN EC 81 MG TAB PO SCH (09:00)
--- NOTE | 2019-10-23 10:29 | EKG ---
Test Date: 2019-10-23 Test Time: 09:15:40 Beam Warper: BHANU MEASUREMENT RESULTS: Intervals: Rate: 74 TX: 162 QRSD: 132 QT: 406 QTc: 450 [place]: P: 61 TX: 162 QRS: -50 T: 99 INTERPRETIVE STATEMENTS: Normal sinus rhythm Left axis deviation Left bundle branch block Abnormal ECG Compared to ECG 10/22/2019 12:38:17 No significant changes Electronically Signed On 10-23-19 10:28:56 CDT by Bienvenido Nguyen
[2019-10-23] MEDS ORDERED: HEPA 1000U/500MLS 1,000 UNIT/500 ML BAG IV ONE (12:57)
[2019-10-23] MEDS ORDERED: NA CHLORIDE 0.9% 0 ML ONE (13:29)
[2019-10-23] MEDS ORDERED: FENTANYL CITR 100 MCG/2 ML ONE (13:29)
[2019-10-23] MEDS ORDERED: ATROPINE SULF 1 MG/10 ML SYR IV ONE (13:29)
[2019-10-23] MEDS ORDERED: MIDAZOLAM HCL 2 MG/2 ML INJ ONE ×2 (13:29→13:58)
[2019-10-23] MEDS ORDERED: METHYLPREDNISOLONE 125 MG INJ ONE (13:29)
--- NOTE | 2019-10-23 14:56 | OP ---
Surgeon: Bienvenido Nguyen MD Graphic Technician: Baltazar Galicia. Indications For Procedure: The patient is a 69-year-old white woman, who has had a stent of the LAD in March of 2019, came into the hospital with symptoms suspicious of unstable angina, ruled out for myocardial infarction, was admitted to Dr. Hernandez. Description Of Procedure: She was brought to the optical laboratory technician today as an inpatient, underwent a left he art catheterization and selective coronary arteriogram. She was prepped and draped in the routine st erile fashion, was given Versed and fentanyl for IV sedation. She was given 125 mg of Solu-Medrol fo r iodine allergy. 6-Canadian catheters, left and right Ozzie, were used to cannulate the left main a nd the right main respectively. She was found to have a normal circumflex and normal RCA that was do minant. She had a patent proximal LAD stent. She had about a 20% ostial LAD, which was present in A ugust of 2018. There were no complications. Blood Loss: 5 mL. Anesthesia: Total conscious sedation was 30 minutes. Postoperative Diagnoses: Mild coronary artery disease. Patent left anterior descending stent. No r estenosis. Plan: The plan is for medical therapy. ALDEN/ALFRED Voice ID: [id number] Report ID: [id number]
--- NOTE | 2019-10-23 20:29 | HP ---
Date of Admission: 10/22/2019 Chief Complaint: Chest pain. History Of Present Illness: The patient presented to the emergency room. She stated she was driving home from the pharmacy when she had a sudden onset of rather severe central chest pain, which she fe lt was similar to the pain she had. When she requires stent about 9 months ago, she said she broke i nto sweat, did not have trouble breathing. Past History: As above. The patient has a history of coronary artery disease, had stent placement a nd LAD. Since then, she has been hospitalized on more than 1 occasion for chest pain with no definit true diagnosis at the time. The patient also has a history of insulin-dependent diabetes, which she s tates has been under relatively good control. Family History: Noncontributory. Social History: Nonsmoker, nondrinker. Physical Examination: General: At this time seen, patient was basically asymptomatic after being treated in the ER. Vital Signs: Stable. Head and Neck: Normocephalic. Pupils equally reactive to light and accommodation. Fundi negative. Trachea midline. Thyroid not palpable. ENT: Negative. Chest: Clear to P and A. Cardiovascular: PMI midclavicular line. Heart: Sounds normal. Peripheral pulses present bilaterally. Abdomen: No organomegaly. Bowel sounds present. Extremities: Good tone and movement bilaterally. Reflexes physiologic. Rectal/Pelvic: Deferred. Impression: Chest pain, probable angina. Plan: Patient will be admitted, placed on telemetry, treated as coronary artery disease including la b work and monitoring and to be seen by Cardiology. Depending on the results, determine whether or n ot a further procedure such as a catheterization will be done. HR/MODL Voice ID: [id number]
[2019-10-23] MEDS ORDERED: D50W 25 GM/50 ML SYRINGE/VIAL IV PRN ×2 (21:23→21:47)
[2019-10-23] MEDS ORDERED: GLUCAGON 1 MG/VIAL IM PRN ×2 (21:23→21:47)
[2019-10-23] MEDS: ATORVASTATIN 80 MG TAB PO SCH (21:32)
[2019-10-23] MEDS: IRBESARTAN 150 MG TAB PO SCH (21:32)
[2019-10-23] MEDS: INSULIN GLARGINE 100 UNITS/ML SQ SCH (22:45)
[2019-10-24] MEDS: INSULIN -REGULAR HUMAN 50 UNIT/0.5 ML ML SQ SCH ×5 (00:53→17:15)
[2019-10-24] MEDS: LEVOTHYROXINE SOD 0.075 MG TAB PO SCH (06:07)
[2019-10-24] MEDS: PANTOPRAZOLE 40MG TABLET PO SCH (06:07)
[2019-10-24] MEDS: AMLODIPINE 5 MG TAB PO SCH (08:25)
[2019-10-24] MEDS: ASPIRIN 81 MG CHEWABLE TABLET PO SCH (08:25)
[2019-10-24] MEDS: INSULIN GLARGINE 100 UNITS/ML SQ SCH (08:26)
[2019-10-24] MEDS ORDERED: VALSARTAN 80 MG TAB PO SCH (09:00)
[2019-10-24] MEDS: VALSARTAN 160 MG TAB PO SCH (09:00)
[2019-10-24 13:18] VITALS: TEMP 97
[2019-10-24 14:44] VITALS: O2SAT 91
[2019-10-24 17:27] VITALS: BP 142/66
[2019-10-24] MEDS ORDERED: INSULIN GLARGINE 100 UNITS/ML SQ SCH (21:26)
--- NOTE | 2019-10-24 22:18 | HP ---
Date of Admission: 10/22/2019 The patient feels considerably better today. On further questioning, since she had a normal catheter ization, does state that a couple months ago she had a similar episode, was seen locally in the [facility] ency room, transferred to [place] at which time it sounds like an ERCP was done. Multiple stones wer e suctioned from her duct. She had cholecystectomy a number of years ago. I suspect this is the cau se of her recurrent midepigastric and lower chest pain. In regard to her diabetes, she was told to i ncrease her insulin by 2 units twice a day, although on the metformin, atorvastatin until further yesica luation over the next week when she will give herself the insulin, adhere to the diet as best as poss ibbianca and follow up with me in 1 week with a plan of sending her to the ict account manager with the or iginal scoping a couple months ago. Patient did have a cholecystectomy over 5-6 years ago that did h ave multiple stones as well. HR/MODL Voice ID: [id number]
== END 2019-10-24 18:25 | disposition home or self-care (01) ==
LOC: ER 12:16 → ERHOLD 14:21 → 2ND 15:38
PROVIDERS: ADMIT Family Medicine; ATTEND Family Medicine
DX: I25.119 Atherosclerotic heart disease of native coronary artery with unspecified angina pectoris (principal); R10.13 Epigastric pain; E11.9 Type 2 diabetes mellitus without complications; I44.7 Left bundle-branch block, unspecified; I10 Essential (primary) hypertension; E78.5 Hyperlipidemia, unspecified; E03.9 Hypothyroidism, unspecified; E66.9 Obesity, unspecified; Z68.30 Body mass index [BMI] 30.0-30.9, adult; Z79.82 Long term (current) use of aspirin; Z79.4 Long term (current) use of insulin; Z79.899 Other long term (current) drug therapy; Z95.5 Presence of coronary angioplasty implant and graft; Z90.49 Acquired absence of other specified parts of digestive tract; Z87.19 Personal history of other diseases of the digestive system
CPT/HCPCS: 93005 ×2; 85025 ×2; 80048 ×2; 36415; 83735; 82947 ×13; 85610; 80076; 81003; 84484 ×3; 83880; 71045; 93454; 99284; C1893; C1760; J2250 ×2; J3010; G0378 ×6; J7040; J7030; J2930; J0583; J1815; J7512

== ENCOUNTER 2020-02-19 12:58 | Emergency (ER) | payer OTHER ==
--- NOTE | 2020-02-19 13:51 | EDPHYS ---
Physician Documentation [facility] Name: Laura Khanna Age: 69 yrs Sex: Female : 1950 Arrival Date: 02/19/2020 Time: 13:04 Bed 30 Private MD: Kni Hernandez ED Physician Chicho Lanza HPI: 02/18 13:47 This 69 yrs old Female presents to ER via Ambulatory with complaints of Chest silvia Pain, Shortness Of Breath. 13:47 The patient or guardian reports chest pain that is located primarily in the substernal silvia area, anterior chest wall. Onset: just prior to arrival, this morning. The pain does not radiate. Associated signs and symptoms: The patient has no apparent associated signs or symptoms. The chest pain is described as a heaviness, a pressure. Duration: The patient or guardian reports a single episode, that is still ongoing. Modifying factors: The symptoms are alleviated by nothing. the symptoms are aggravated by nothing. Severity of pain: At its worst the pain was moderate in the emergency department the pain has resolved and did so just prior to arrival. The patient has experienced similar episodes in the past, a few times. Historical: - Allergies: 13:23 PENICILLINS; ll1 13:23 Levaquin; ll1 13:23 Iodine; ll1 - PMHx: 13:23 Hypothyroidism; Pancreatitis; Hypertension; Diabetes - NIDDM; ll1 - PSHx: 13:23 left thumb; Tonsillectomy; Hysterectomy; Cholecystectomy; Heart stents; left shoulder; ll1 - Immunization history:: Flu vaccine is not up to date. - Social history:: Smoking status: Patient denies any tobacco usage or history of. Patient/guardian denies using alcohol, street drugs, tobacco products. - Family history:: not pertinent. ROS: 13:47 Constitutional: Negative for fever, chills, and weight loss, Eyes: Negative for injury, silvia pain, redness, and discharge, ENT: Negative for injury, pain, and discharge, Neck: Negative for injury, pain, and swelling, Respiratory: Negative for shortness of breath, cough, wheezing, and pleuritic chest pain, Abdomen/GI: Negative for abdominal pain, nausea, vomiting, diarrhea, and constipation, Back: Negative for injury and pain, : Negative for injury, bleeding, discharge, and swelling, MS/Extremity: Negative for injury and deformity, Skin: Negative for injury, rash, and discoloration, Neuro: Negative for headache, weakness, numbness, tingling, and seizure, Psych: Negative for depression, anxiety, suicide ideation, homicidal ideation, and hallucinations, Allergy/Immunology: Negative for hives, rash, and allergies, Endocrine: Negative for neck swelling, polydipsia, polyuria, polyphagia, and marked weight changes, Hematologic/Lymphatic: Negative for swollen nodes, abnormal bleeding, and unusual bruising. 13:47 Cardiovascular: Positive for chest pain, of the chest. Exam: 13:47 Constitutional: This is a well developed, well nourished patient who is awake, alert, silvia and in no acute distress. Head/Face: Normocephalic, atraumatic. Eyes: Pupils equal round and reactive to light, extra-ocular motions intact. Lids and lashes normal. Conjunctiva and sclera are non-icteric and not injected. Cornea within normal limits. Periorbital areas with no swelling, redness, or edema. ENT: Nares patent. No nasal discharge, no septal abnormalities noted. Tympanic membranes are normal and external auditory canals are clear. Oropharynx with no redness, swelling, or masses, exudates, or evidence of obstruction, uvula midline. Mucous membranes moist. Neck: Trachea midline, no thyromegaly or masses palpated, and no cervical lymphadenopathy. Supple, full range of motion without nuchal rigidity, or vertebral point tenderness. No Meningismus. Chest/axilla: Normal chest wall appearance and motion. Nontender with no deformity. No lesions are appreciated. Cardiovascular: Regular rate and rhythm with a normal S1 and S2. No gallops, murmurs, or rubs. Normal PMI, no JVD. No pulse deficits. Respiratory: Lungs have equal breath sounds bilaterally, clear to auscultation and percussion. No rales, rhonchi or wheezes noted. No increased work of breathing, no retractions or nasal flaring. Abdomen/GI: Soft, non-tender, with normal bowel sounds. No distension or tympany. No guarding or rebound. No evidence of tenderness throughout. Back: No spinal tenderness. No costovertebral tenderness. Full range of motion. Skin: Warm, dry with normal turgor. Normal color with no rashes, no lesions, and no evidence of cellulitis. MS/ Extremity: Pulses equal, no cyanosis. Neurovascular intact. Full, normal range of motion. Neuro: Awake and alert, GCS 15, oriented to person, place, time, and situation. Cranial nerves II-XII grossly intact. Motor strength 5/5 in all extremities. Sensory grossly intact. Cerebellar exam normal. Normal gait. Psych: Awake, alert, with orientation to person, place and time. Behavior, mood, and affect are within normal limits. 14:45 ECG was reviewed by the Attending Physician. [facility] Vital Signs: 13:21 BP 165 / 90; Pulse 86; Resp 18; Temp 98.2; Pulse Ox 98% ; Pain 6/10; ll1 13:51 Weight 99.79 kg (M); ss 15:00 BP 175 / 71; Pulse 79; Resp 18; Pulse Ox 97% on R/A; vc MDM: 13:40 Patient medically screened. [facility] 13:49 Data reviewed: vital signs, nurses notes, lab test result(s), EKG, radiologic studies, [facility] plain films. 13:50 Differential diagnosis: abnormal EKG, acute myocardial infarction, acute pericarditis, silvia coronary artery disease chest wall pain, esophagitis, hiatal hernia, pancreatitis, pulmonary embolus, stable angina, unstable angina. HEART Score: History: Highly Suspicious (2), ECG: Normal (0), Age: > or = 65 years (2), Risk Factors: > or = 3 Risk factors for atherosclerotic disease (2), [Hypercholesterolemia] [Hypertension] [+ Family HX]. The patient was given aspirin in the Emergency Department. The patient's deep vein thrombosis risk score was calculated as follows: Total Score: 0. This patient was found to be at low risk for a deep vein thrombosis by using the Well's assessment criteria. The patient's pulmonary embolism risk score was calculated as follows: Total Score: 0-2 points. This patient was found to be at low risk for a pulmonary embolism by using the Well's assessment criteria. LUPE Risk Score: 1 - patient's age is greater or equal to 65 years, 1 - Three or more CAD risk factors, 1- Known CAD, 1 - ASA use in past 7 days, 1 - Recent [<24hrs] Severe Angina, TOTAL SCORE = 5. Data interpreted: groundwater monitoring technician: rate is 86 beats/min, rhythm is regular, Pulse oximetry: on room air is 98 %. Test interpretation: by ED physician or midlevel provider: ECG, plain radiologic studies. 17:08 Physician consultation: Bienvenido Nguyen MD and will see patient in ED, discharges patient silvia from the emergency department, ask me to dispo pt to follow upwith him, double prilosec, return if symptoms increase or persist. 17:12 ED course: per dr nguyen and angelica instructions, i will dc home to follow up , rick vega gerd meds. 02/18 13:40 Order name: Basic Metabolic Panel 02/18 13:40 Order name: CBC with Diff; Complete Time: 16: 02/18 13:40 Order name: LFT's; Complete Time: 16: 02/18 13:40 Order name: Magnesium; Complete Time: 16: 02/18 13:40 Order name: NT PRO-BNP; Complete Time: 16: 02/18 13:40 Order name: PT-INR; Complete Time: 16: 02/18 13:40 Order name: Troponin (emerg Dept Use Only); Complete Time: 16: 02/18 13:40 Order name: XRAY Chest (1 view); Complete Time: 16: 02/18 13:41 Order name: Lipase; Complete Time: 16: [facility] 02/18 13:41 Order name: Basic Metabolic Panel; Complete Time: 16: [facility] 02/18 16:10 Order name: Troponin (emerg Dept Use Only); Complete Time: 17:07 [facility] 02/18 16:12 Order name: Glucose, Ancillary Testing; Complete Time: 17:07 [facility] 02/18 13:40 Order name: EKG; Complete Time: 13:41 02/18 13:40 Order name: Cardiac monitoring; Complete Time: 13:51 02/18 13:40 Order name: EKG - Nurse/Tech; Complete Time: 13:51 02/18 13:40 Order name: IV Saline Lock; Complete Time: 13: 02/18 13:40 Order name: Labs collected and sent; Complete Time: 13:51 02/18 13:40 Order name: O2 Per Protocol; Complete Time: 13:51 02/18 13:40 Order name: O2 Sat Monitoring; Complete Time: 13:51 ss EC:45 Rate is 70 beats/min. Rhythm is regular. QRS [place] is Normal. AR interval is normal. QRS silvia interval is normal. QT interval is normal. No Q waves. T waves are Normal. No ST changes noted. Clinical impression: Abnormal EKG without significant change and No evidence of ischemia. Interpreted by me. Reviewed by me. Administered Medications: 14:49 Drug: NS 0.9% 1000 ml Route: IV; Rate: 125 ml/hr; Site: right antecubital; vc 14:49 Drug: Aspirin 162 mg Route: PO; vc 17:00 Follow up: Response: No adverse reaction vc 14:51 Drug: Lovenox 1 mg/kg Route: Sub-Q; Site: right upper abdomen; vc 17:30 Follow up: Response: No adverse reaction vc 14:51 Drug: Pepcid 20 mg Route: IVP; Site: right antecubital; vc 17:30 Follow up: Response: No adverse reaction vc Disposition: 02/19/20 17:10 Discharged to Home. Impression: Chest pain, unspecified, Gastro-esophageal reflux disease, Type 2 diabetes mellitus. - Condition is Stable. - Discharge Instructions: Nonspecific Chest Pain, Type 2 Diabetes Mellitus, Diagnosis, Adult, Gastroesophageal Reflux Disease, Adult, Nonspecific Chest Pain, [id number], Gastroesophageal Reflux Disease, Adult, [id number], Aspirin and Your Heart, Type 2 Diabetes Mellitus, Diagnosis, Adult, [id number]. - Prescriptions for Protonix 40 mg Oral Tablet, Delayed Release (E.C.) - take 1 tablet by ORAL route every 12 hours; 30 tablet. - Medication Reconciliation Form, Thank You Letter, Antibiotic Education, Prescription Opioid Use form. - Follow up: Kin Hernandez MD; When: 2 - 3 days; Reason: Recheck today's complaints, Continuance of care, Re-evaluation by your physician. Follow up: Bienvenido Nguyen MD; When: 2 - 3 days; Reason: Recheck today's complaints, Continuance of care, Re-evaluation by your physician. - Problem is new. - Symptoms have improved. Signatures: Dispatcher [employer] Chicho Tillman MD MD cha Smirch, Shelby, RN RN ss Calcote, Sheila, RN RN vc Santiago, Lynsay, RN RN ll1 Corrections: (The following items were deleted from the chart) 17:08 13:50 Hospitalization Ordered by Preston Stuart DO for Observation. Preliminary silvia diagnosis is Chest pain, unspecified; Essential (primary) hypertension. Bed requested for Telemetry/MedSurg (observation). Status is Observation. Condition is Fair. Problem is new. Symptoms have improved. silvia 17:58 17:10 02/19/2020 17:10 Discharged to Home. Impression: Chest pain, unspecified; ss Gastro-esophageal reflux disease; Type 2 diabetes mellitus. Condition is Stable. Forms are Medication Reconciliation Form, Thank You Letter, Antibiotic Education, Prescription Opioid Use. Follow up: Kin Hernandez; When: 2 - 3 days; Reason: Recheck today's complaints, Continuance of care, Re-evaluation by your physician. Follow up: Bienvenido Nguyen; When: 2 - 3 days; Reason: Recheck today's complaints, Continuance of care, Re-evaluation by your physician. Problem is new. Symptoms have improved. silvia
--- NOTE | 2020-02-19 13:51 | ER ---
Nurse's Notes [facility] Name: Laura Khanna Age: 69 yrs Sex: Female : 1950 Arrival Date: 02/19/2020 Time: 13:04 Bed 30 Private MD: Kin Hernandez Diagnosis: Chest pain, unspecified;Gastro-esophageal reflux disease;Type 2 diabetes mellitus Presentation: 02/18 13:21 Chief complaint: Patient states: Chest pain and SOB for 2 hours. No cough or fever. + ll1 dry heaves. Coronavirus screen: Proceed with normal triage. Patient denies a cough. Patient reports shortness of breath or difficulty breathing. Patient denies measured and/or subjective temperature greater than 100.4F prior to today's visit. Patient denies travel on a cruise ship or to a country the [facility] currently lists as an affected area. Patient denies contact with known and/or suspected case of COVID-19. Ebola Screen: Patient denies travel to an Ebola-affected area in the 21 days before illness onset. Initial Sepsis Screen: Does the patient meet any 2 criteria? No. Patient's initial sepsis screen is negative. Risk Assessment: Do you want to hurt yourself or someone else? Patient reports no desire to harm self or others. Onset of symptoms was February 19, 2020. 13:21 Method Of Arrival: Ambulatory ll1 13:21 Acuity: ZACARIAS 2 ss 14:00 Initial Sepsis Screen: Does the patient have a suspected source of infection? No. vc Patient's initial sepsis screen is negative. Triage Assessment: 14:00 General: Appears in no apparent distress. obese, Behavior is calm, cooperative, vc appropriate for age. Pain: Complains of pain in epigastric area Pain does not radiate. Pain currently is 4 out of 10 on a pain scale. Quality of pain is described as burning, pressure. Cardiovascular: Capillary refill < 3 seconds Patient's skin is warm and dry. Historical: - Allergies: 13:23 PENICILLINS; ll1 13:23 Levaquin; ll1 13:23 Iodine; ll1 - PMHx: 13:23 Hypothyroidism; Pancreatitis; Hypertension; Diabetes - NIDDM; ll1 - PSHx: 13:23 left thumb; Tonsillectomy; Hysterectomy; Cholecystectomy; Heart stents; left shoulder; ll1 - Immunization history:: Flu vaccine is not up to date. - Social history:: Smoking status: Patient denies any tobacco usage or history of. Patient/guardian denies using alcohol, street drugs, tobacco products. - Family history:: not pertinent. Screenin:30 Abuse screen: Denies threats or abuse. Nutritional screening: No deficits noted. vc Tuberculosis screening: No symptoms or risk factors identified. Fall Risk None identified. Assessment: 13:50 Reassessment: Decision to admit patient now by Dr. Lanza. XRAY at bedside to obtain ss images. Labs being sent now. 14:00 Pain: Pain does not radiate. Pain began gradually. vc 14:00 General: Appears in no apparent distress. uncomfortable, obese, Behavior is calm, vc cooperative, appropriate for age. Neuro: Level of Consciousness is awake, alert, obeys commands, Oriented to person, place, time, situation, Appropriate for age. Cardiovascular: Capillary refill < 3 seconds Patient's skin is warm and dry. Respiratory: Airway is patent Respiratory effort is even, unlabored, Respiratory pattern is regular, symmetrical. GI: Reports epigastric pain. : No signs and/or symptoms were reported regarding the genitourinary system. 15:00 Reassessment: Patient appears in no apparent distress at this time. Patient and/or vc family updated on plan of care and expected duration. Pain level reassessed. Patient is alert, oriented x 3, equal unlabored respirations, skin warm/dry/pink. 16:00 Reassessment: Patient appears in no apparent distress at this time. Patient and/or vc family updated on plan of care and expected duration. Pain level reassessed. Patient is alert, oriented x 3, equal unlabored respirations, skin warm/dry/pink. 17:00 Reassessment: Patient appears in no apparent distress at this time. Patient and/or vc family updated on plan of care and expected duration. Pain level reassessed. Patient is alert, oriented x 3, equal unlabored respirations, skin warm/dry/pink. 17:30 Reassessment: Patient appears in no apparent distress at this time. Patient and/or vc family updated on plan of care and expected duration. Pain level reassessed. Patient is alert, oriented x 3, equal unlabored respirations, skin warm/dry/pink. Patient states feeling better. Patient states symptoms have improved. Vital Signs: 13:21 BP 165 / 90; Pulse 86; Resp 18; Temp 98.2; Pulse Ox 98% ; Pain 6/10; ll1 13:51 Weight 99.79 kg (M); ss 15:00 BP 175 / 71; Pulse 79; Resp 18; Pulse Ox 97% on R/A; vc ED Course: 13:04 Patient arrived in ED. mr 13:04 Kin Hernandez MD is Private Physician. mr 13:22 Triage completed. ll1 13:23 Arm band placed on Patient notified of wait time. ll1 13:40 Chicho Lanza MD is Attending Physician. silvia 13:49 Preston Stuart DO is Hospitalizing Provider. silvia 13:50 Inserted saline lock: 20 gauge in right antecubital area, using aseptic technique. ss Blood collected. Patient maintains SpO2 saturation greater than 95% on room air. 13:54 XRAY Chest (1 view) In Process Unspecified. EDMS 13:57 Sheila Smith, IRINA is Primary Nurse. vc 14:00 Patient has correct armband on for positive identification. Placed in gown. Bed in low vc position. Call light in reach. Side rails up X 1. monitor worker on. Pulse ox on. NIBP on. 17:09 Kin Hernandez MD is Referral Physician. silvia 17:09 Bienvenido Nguyen MD is Referral Physician. silvia 17:55 No provider procedures requiring assistance completed. IV discontinued, intact, vc bleeding controlled, No redness/swelling at site. Pressure dressing applied. Administered Medications: 14:49 Drug: NS 0.9% 1000 ml Route: IV; Rate: 125 ml/hr; Site: right antecubital; vc 14:49 Drug: Aspirin 162 mg Route: PO; vc 17:00 Follow up: Response: No adverse reaction vc 14:51 Drug: Lovenox 1 mg/kg Route: Sub-Q; Site: right upper abdomen; vc 17:30 Follow up: Response: No adverse reaction vc 14:51 Drug: Pepcid 20 mg Route: IVP; Site: right antecubital; vc 17:30 Follow up: Response: No adverse reaction vc Outcome: 13:50 Decision to Hospitalize by Provider. silvia 17:10 Discharge ordered by . silvia 17:55 Discharged to home ambulatory. vc 17:55 Condition: good 17:55 Discharge instructions given to patient, Instructed on discharge instructions, follow up and referral plans. medication usage, Demonstrated understanding of instructions, follow-up care, medications, Prescriptions given X 1. 17:58 Patient left the ED. ss Signatures: Dispatcher [employer] EDChicho Costello MD MD cha Rivera, Trina mr VieraTemi wolf RN RN ss Sheila Smith RN RN vc Lewis, Lynsay, RN RN ll1 Corrections: (The following items were deleted from the chart) 13:33 13:21 Acuity: ZACARIAS 3 ll1 ss
--- NOTE | 2020-02-19 14:03 | RAD REPORT ---
EXAM DESCRIPTION: Pavel Single View02/19/2020 1:54 pm CLINICAL HISTORY: Chest pain COMPARISON: October 2019 FINDINGS: The lungs appear clear of acute infiltrate. The heart is normal size IMPRESSION: No acute abnormalities displayed
[2020-02-19 14:08] LABS: Protime INR 0.97
[2020-02-19 14:09] LABS: Basophils % 1.2 % (0-1.3); Lymphocytes % 23.5 % (15.3-44.8); MPV 9.2 fL (7.6-11.3); RBC Red Blood Cell Count 4.76 M/uL (3.86-4.86)
[2020-02-19 14:30] LABS: ALT/SGPT 64 U/L (12-78); AST/SGOT 41 U/L (15-37); Albumin 3.5 g/dL (3.4-5.0); Alkaline Phosphatase 74 U/L (45-117); BUN Blood Urea Nitrogen 17 mg/dL (7-18); Bicarbonate 27 mmol/L (21-32); Bilirubin Direct 0.1 mg/dL (0-0.2); Bilirubin Total 0.3 mg/dL (0.2-1.0); Glucose Level 120 mg/dL (74-106); Lipase 172 U/L (73-393); Magnesium 1.8 mg/dL (1.8-2.4); NT PRO-BNP 108 pg/mL (<125); Potassium 3.7 mmol/L (3.5-5.1); Protein, Total 7.9 g/dL (6.4-8.2); Sodium Level 140 mmol/L (136-145); Troponin (Emerg Dept Use Only) < 0.02 ng/mL (0.0-0.045)
[2020-02-19] MEDS ORDERED: NA CHLORIDE 0.9% 1,000 ML ONE (14:50)
[2020-02-19] MEDS ORDERED: FAMOTIDINE 20 MG/2 ML VIAL IV ONE (14:50)
[2020-02-19] MEDS ORDERED: ENOXAPARIN 100 MG/ML SYR SQ ONE (14:50)
[2020-02-19] MEDS ORDERED: ASPIRIN EC 81 MG TAB PO ONE (14:50)
--- OUTSIDE RECORDS SUMMARY | 2020-02-19 17:00 | XMS REPORT | Clinical Summary ---
:1950 Author Organization [employer] Address [address] [place] [address] Care Team Providers Name Role Phone Unavailable Primary Care Provider Unavailable Allergies Active Allergy Reactions Severity Noted Date Comments Iodine And Iodide Containing Products Anaphylaxis High 08/2018 Shellfish, Levofloxacin Anaphylaxis High 02/05/2019 Penicillins Anaphylaxis High 02/05/2019 Itching, hives Medications Medication Sig Dispensed Refills Start Date End Date Status irbesartan (AVAPRO) Take 300 mg by mouth 0 Active 300 MG tablet daily. omeprazole Take 40 mg by mouth 0 Active (PRILOSEC) 40 MG daily. capsule levothyroxine Take 75 mcg by mouth 0 Active (SYNTHROID, Every morning on an LEVOTHROID) 75 MCG empty stomach. tablet metFORMIN (GLUMETZA) Take 1,000 mg by 0 Active 1000 MG (MOD) 24 hr mouth 2 (two) times tablet daily with breakfast and dinner. atorvastatin Take 80 mg by mouth 0 Active (LIPITOR) 80 MG nightly. tablet amLODIPine (NORVASC) Take 5 mg by mouth 0 Active 10 MG tablet daily. ondansetron (ZOFRAN) Take 4 mg by mouth 0 Active 4 mg/5 mL solution every 6 (six) hours as needed for Nausea. aspirin 81 MG EC Take 81 mg by mouth 0 Active tablet daily. insulin detemir Inject 50 Units 0 Active U-100 (LEVEMIR) 100 subcutaneously 2 unit/mL injection (two) times daily . Active Problems Problem Noted Date Biliary colic 02/05/2019 Essential hypertension 02/05/2019 Type 2 diabetes mellitus without complication, with lo ng-term current use 02/05/2019 of insulin Family History Medical History Relation Name Comments Cancer Brother Diabetes Brother Heart disease Brother Heart disease Father Heart disease Mother Relation Name Status Comments Brother Father Mother Social History Tobacco Use Types Packs/Day Years Used Date Never Smoker Smokeless Tobacco: Never Used Alcohol Use Drinks/Week oz/Week Comments No Alcohol Habits Answer Date Recorded How often do you have a drink containing alcohol? Never 02/05/2019 How many drinks containing alcohol do you have on a typical Not asked day when you are drinking? How often do you have six or more drinks on one occasion? No t asked Sex Assigned at Date Recorded Not on file Job Start Date Occupation Industry Not on file Not on file Not on file Travel History Travel Start Travel End No recent travel history available. Last Filed Vital Signs Not on file Plan of Treatment Not on file Results Not on fileafter 02/18/2019 Insurance Payer Benefit Plan / Group Subscriber ID Type Phone A ddress [facility] C[facility] xxxxxxxxx ([place]) [place] [address] Advance Directives For more information, please contact:[address] [phone] Code Status Date Activated Date Inactivated Comments Full Code 02/05/2019 11:16 PM 02/07/2019 11:48 PM This code status was determined by: Patient
--- OUTSIDE RECORDS SUMMARY | 2020-02-19 17:00 | XMS REPORT | Continuity of Care Document ---
:1950 Author Organization [facility] t Address [address] [place] [address] Care Team Providers Name Role Phone Ruchi ELLINGTON Attending Clinician Unavailable Ruchi ELLINGTON Admitting Clinician Unavailable Problems Condition Condition Condition Status Onset Resolution Last Treating Co mments Source Name Details Category Date Date Treatment Clinician Date Biliary Biliary Disease Active [facility] colic [facility]ic 02-05 [facility] 00 Muse Essential Essential Disease Active [facility] hypertensi hypertensi 02-05 [facility] - on on 00:00: Medical 00 Muse Type 2 Type 2 Disease Active [facility] diabetes diabetes 02-05 [facility] - mellitus mellitus 00:00: Medica l without without 00 Muse complicati complicati on, with on, with long-term long-term current current use of use of insulin insulin Allergies, Adverse Reactions, Alerts Allergy Allergy Status Severity Reaction(s) Onset Inactive Treating Comm ents Source Name Type Date Date Clinician Iodine Drug Active Anaphylaxis Shellfish [facility] , [facility] - Iodide 00:00: Medical Containi 00 Muse ng Products Levoflox Drug Active [facility]aphylaxis [facility] 02-05 [facility]: Medical 00 Muse Penicill Drug Active Anaphylaxis Itching, [facility] ins Allergy 02-05 hives [facility]: Medical 00 Muse Family History Family Member Diagnosis Comments Start Date Stop Date Source Natural brother Cancer [facility] Natural brother Diabetes [facility] Natural brother Heart disease [facility] Natural father Heart disease [facility] Natural mother Heart disease [facility] Social History Social Habit Start Date Stop Date Quantity Comments Source History SDOH Alcohol [facility] Std Drinks [facility] History SDOH Alcohol [facility] Binge [facility] Sex Assigned At [facility] History SDOH Alcohol 2019-02-05 2019-02-05 1 [facility] - Frequency 00:00:00 00:00:00 Medical Center Smoking Status Start Date Stop Date Source Never smoker [facility] M edical Muse Medications Ordered Filled Start Stop Current Ordering Indication Dosage Frequency Signature Comments Components Source Medication Medication Date Date Medication? Clinician (SIG) Name Name insulin Yes 50U Q.5D Inject 50 [facility]- Units [facility] - U-100 23:13: subcutaneo Medica l (LEVEMIR) 16 usly 2 Center 100 unit/mL (two) injection times daily . ondansetron Yes 4mg Take [address] (ZOFRAN) 4 7 by mouth [facility] - mg/5 mL 22:15: every 6 Medical solution 24 (six) Center hours as needed for Nausea. aspirin 81 Yes 81mg QD Take [address] MG EC 7- by mouth [facility] - tablet 22:15: daily. Medical 24 Center levothyroxi Yes 75ug Take [address] ne 7-01 mcg by [facility] - (SYNTHROID, 22:15: mouth Medic al LEVOTHROID) 23 Every Center 75 MCG morning on tablet an empty stomach. metFORMIN Yes 1000mg Take 1,[address] (GLUMETZA) 7-01 mg by [facility] - 1000 MG 22:15: mouth 2 Medical (MOD) 24 hr 23 (two) Center tablet times daily with breakfast and dinner. atorvastati Yes 80mg QD Take [address] [facility] (LIPITOR) 7- by mouth Luke s - 80 MG 22:15: nightly. Medical tablet 23 Center amLODIPine Yes 5mg QD Take [address] (NORVASC) 7 by mouth [facility] - 10 MG 22:15: daily. Medical tablet 23 Center irbesartan Yes 300mg QD Take [address] (AVAPRO) 7-01 mg by [facility] - 300 MG 22:11: mouth Medical tablet 04 daily. Center omeprazole 2018- Yes 40mg QD Take [address] (PRILOSEC) 7-01 by mouth [facility] - 40 MG 22:11: daily. Medical capsule 04 Center Procedures This patient has no known procedures. Results Test Description Test Time Test Comments Results Result Sourc e Comments [place], ERCP 2019-02-07 INTRA OP FINAL REPORT 22:39:00 IMAGINGReason for PATIENT ID: exam:->CBD STONES [id number] Examination: ERCP 4 fluoroscopic spot views were obtained during the procedure by the ordering service. Images are nondiagnostic as no radiologist was present at the time of imaging. Fluoroscopic time was 122.2 seconds. Please see the procedure report for details. Signed: Reyes Camp MDReport Verified Date/Time: 02/07/2019 22:39:15 Reading Location: [address] Reading Room -GLUCOSE METER 2019-02-07 18:25:00 Test Item Value Reference Range Interpretation Comme nts POC-GLUCOSE METER ([employer]) (test 200 mg/dL 70-110 H TESTED AT [address] code = 1538) [facility] [address] 0 POCT-GLUCOSE [id number] 15:42:00 Test Item Value Reference Range Interpretation Comments POC-GLUCOSE METER 164 mg/dL 70-110 H TESTED AT [place] [address] ([facility]) (test code = KRISTIN Finley [facility] 1538) [address] POCT-GLUCOSE [id number] 12:01:00 Test Item Value Reference Range Interpretation Comments POC-GLUCOSE METER 189 mg/dL 70-110 H TESTED AT [facility] 6720 ([employer]) (test code = KRISTIN Finley [facility] 1538) [id number] POCT-GLUCOSE [id number] 05:00:00 Test Item Value Reference Range Interpretation Comments POC-GLUCOSE METER 196 mg/dL 70-110 H TESTED AT [facility] 67 ([facility]) (test code = KRISTIN Finley [facility] 1538) [id number] POCT-GLUCOSE [id number] 00:28:00 Test Item Value Reference Range Interpretation Comments POC-GLUCOSE METER 218 mg/dL 70-110 H TESTED AT [facility] 6720 ([facility]) (test code = KRISTIN Finley [place] 1538) [id number] POCT-GLUCOSE [id number] 17:58:00 Test Item Value Reference Range Interpretation Comments POC-GLUCOSE METER 155 mg/dL 70-110 H TESTED AT [facility] 6720 ([facility]) (test code = KRISTIN Finley [place] 1538) [id number] MR, ABDOMEN, [id number] 12:55:00FINAL REPORT TECHNIQUE: MRI of the abdomen and MRCP WITHOUT intravenous contrast. 3-D volume reconstructions were obtained to evaluate the biliary ductal system. INDICATION: BILIARY COLIC, POSSIBLE STONE IN BILE DUCT ON CT. COMPARISON: None. FINDINGS: ABSENCE OF INTRAVENOUS CONTRAST DECREASES SENSITIVITY FOR [...] Accessory duct of Santorini. ADRENALS: No adrenal nodules. KIDNEYS/URETERS: No hydronephrosis or solid mass lesions. A lateral pole fat density lesion measures0.9 cm on axial in phase image 5. PERITONEUM/RETROPERITONEUM: No free fluid.LYMPH NODES: No lymphaden opathy.VESSELS: Unremarkable. GI TRACT: No distention or wall thickening. BONES AND SOFT TISSUES: Unremarkable. IMPRESSION: 1.A stone in the common bile duct measures 0.6 cm and results in mild intrahepatic ductal dilation. 2.A right upper pole 0.9 cm renal lesion is incompletely evaluated on this noncontrast MRI. 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 3.Diffuse fatty infiltration of the liver. Signed: Vasquez Dowling MDReport Verified Date/Time: 02/06/2019 12:55:19 Reading Location: [facility] B1 C013Y CT Body Reading Room POCT-GLUCOSE [id number] 11:33:00 Test Item Value Reference Range Interpretation Comments POC-GLUCOSE METER 190 mg/dL 70-110 H TESTED AT [facility] 6720 (BEAKER) (test code = KRISTIN Finley [place] 1538) [id number] POCT-GLUCOSE [id number] 06:13:00 Test Item Value Reference Range Interpretation Comments POC-GLUCOSE METER 210 mg/dL 70-110 H TESTED AT [facility] 6720 (BEAKER) (test code = KRISTIN [place] 1538) [id number] PROTHROMBIN [id number] 03:06:00 Test Item Value Reference Range Interpretation Comments PROTIME (BEAKER) (test code = 15.4 seconds 11.9-14.2 H 759) INR (BEAKER) (test code = 370) 1.3 <=5.9 Effective 01/03/2019: PT Reference Range ChangeNew: 11.9-14.2 Previous: 11.7- 14.7RECOMMENDED COUMADIN/WARFARIN INR THERAPY RANGESSTANDARD DOSE: 2.0-3.0 Includes: PROPHYLAXIS for venous thrombosis, systemic embolization; TREATMENT for venous thrombosis and/or pulmonary embolus.HIGH RISK: Target INR is2.5-3.5 for patients wiht mechanical heart valves.[id number] 03:06:00 Test Item Value Reference Range Interpretation Comments MAGNESIUM (BEAKER) 1.3 mg/dL 1.6-2.6 L Specimen slightly (test code = 627) hemolyzed BASIC METABOLIC [id number] 03:06:00 Test Item Value Reference Range Interpretation Comments SODIUM (BEAKER) 134 meq/L 136-145 L (test code = 381) POTASSIUM (BEAKER) 4.1 meq/L 3.5-5.1 Specimen slightly (test code = 379) hemolyzed CHLORIDE (BEAKER) 100 meq/L 98-107 (test code = 382) CO2 (BEAKER) (test 24 meq/L 22-29 code = 355) BLOOD UREA NITROGEN 11 mg/dL 7-21 (BEAKER) (test code = 354) CREATININE (BEAKER) 0.82 mg/dL 0.57-1.25 Specimen slightly (test code = 358) hemolyzed GLUCOSE RANDOM 228 mg/dL 70-105 H (BEAKER) (test code = 652) CALCIUM (BEAKER) 9.4 mg/dL 8.4-10.2 (test code = 697) EGFR (BEAKER) (test 69 mL/min/1.73 ESTIMA ANIKET GFR IS code = 1092) sq m NOT ACCURATE CREATININE CLEARANCE IN PREDICTING GLOMERULAR FILTRATION RATE . ESTIMATED GFR I S NOT APPLICABLE FOR DIALYSIS PATIEN TS. Specimen slightly ictericHEPATIC FUNCTION [id number] 03:06:00 Test Item Value Reference Range Interpretation Comments TOTAL PROTEIN (BEAKER) 6.9 gm/dL 6.0-8.3 Speci men slightly (test code = 770) hemolyzed ALBUMIN (BEAKER) (test 3.6 g/dL 3.5-5.0 Speci men slightly code = 1145) hemolyzed BILIRUBIN TOTAL 2.2 mg/dL 0.2-1.2 H Specimen sli ghtly (BEAKER) (test code = hemoly zed 377) BILIRUBIN DIRECT 1.6 mg/dL 0.1-0.5 H Specimen sl ightly (BEAKER) (test code = hemoly zed 706) ALKALINE PHOSPHATASE 226 U/L 40-150 H (BEAKER) (test code = 346) AST (SGOT) (BEAKER) 311 U/L 5-34 H Specimen slightly (test code = 353) hemolyzed ALT (SGPT) (BEAKER) 328 U/L 6-55 H Specimen slightly (test code = 347) hemolyzed Specimen slightly ictericCBC W/PLT COUNT & AUTO [id number] 02:50:00 Test Item Value Reference Range Interpretation Comments WHITE BLOOD CELL COUNT (BEAKER) 7.6 K/ L 3.5-10.5 (test code = 775) RED BLOOD CELL COUNT (BEAKER) 4.29 M/ L 3.93-5.22 (test code = 761) HEMOGLOBIN (BEAKER) (test code = 12.1 GM/DL 11.2-15.7 410) HEMATOCRIT (BEAKER) (test code = 37.1 % 34.1-44.9 411) MEAN CORPUSCULAR VOLUME (BEAKER) 86.5 fL 79.4-94.8 (test code = 753) MEAN CORPUSCULAR HEMOGLOBIN 28.2 pg 25.6-32.2 (BEAKER) (test code = 751) MEAN CORPUSCULAR HEMOGLOBIN CONC 32.6 GM/DL 32.2-35.5 (BEAKER) (test code = 752) RED CELL DISTRIBUTION WIDTH 14.5 % 11.7-14.4 H (BEAKER) (test code = 412) PLATELET COUNT (BEAKER) (test 255 K/CU MM 150-450 code = 756) MEAN PLATELET VOLUME (BEAKER) 11.2 fL 9.4-12.3 (test code = 754) NUCLEATED RED BLOOD CELLS 0 /100 WBC 0-0 (BEAKER) (test code = 413) NEUTROPHILS RELATIVE PERCENT 78 % (BEAKER) (test code = 429) LYMPHOCYTES RELATIVE PERCENT 14 % (BEAKER) (test code = 430) MONOCYTES RELATIVE PERCENT 8 % (BEAKER) (test code = 431) EOSINOPHILS RELATIVE PERCENT 0 % (BEAKER) (test code = 432) BASOPHILS RELATIVE PERCENT 0 % (BEAKER) (test code = 437) NEUTROPHILS ABSOLUTE COUNT 5.88 K/ L 1.56-6.13 (BEAKER) (test code = 670) LYMPHOCYTES ABSOLUTE COUNT 1.07 K/ L 1.18-3.74 L (BEAKER) (test code = 414) MONOCYTES ABSOLUTE COUNT (BEAKER) 0.58 K/ L 0.24-0.36 H (test code = 415) EOSINOPHILS ABSOLUTE COUNT 0.01 K/ L 0.04-0.36 L (BEAKER) (test code = 416) BASOPHILS ABSOLUTE COUNT (BEAKER) 0.02 K/ L 0.01-0.08 (test code = 417) IMMATURE GRANULOCYTES-RELATIVE 0 % 0-1 PERCENT (BEAKER) (test code = 2805) POCT-GLUCOSE [id number] 23:33:00 Test Item Value Reference Range Interpretation Comments POC-GLUCOSE METER 241 mg/dL 70-110 H TESTED AT [facility] 6720 (BEAKER) (test code = KRISTIN KUMAR 1538) [id number]
[2020-02-19 18:33] VITALS: TEMP 98.2
[2020-02-19 18:34] VITALS: BP 175/71; O2SAT 97
--- NOTE | 2020-02-20 07:47 | EKG ---
Test Date: 2020-02-19 Test Time: 13:49:15 Transfer Station Operator: VENKAT MEASUREMENT RESULTS: Intervals: Rate: 81 PA: 148 QRSD: 128 QT: 410 QTc: 476 [place]: P: 67 PA: 148 QRS: -54 T: 95 INTERPRETIVE STATEMENTS: Normal sinus rhythm Left axis deviation Left bundle branch block Abnormal ECG Compared to ECG 10/23/2019 09:15:40 No significant changes Electronically Signed On 02-20-20 07:44:37 CDT by Bienvenido Nguyen
== END 2020-02-19 17:58 | disposition home or self-care (01) ==
LOC: ER 12:58
DX: K21.9 Gastro-esophageal reflux disease without esophagitis (principal); E11.9 Type 2 diabetes mellitus without complications; I10 Essential (primary) hypertension; Z95.818 Presence of other cardiac implants and grafts; Z88.0 Allergy status to penicillin; Z88.1 Allergy status to other antibiotic agents; Z88.8 Allergy status to other drugs, medicaments and biological substances
CPT/HCPCS: 93005; 85025; 80048; 36415; 83735; 85610; 82947; 80076; 84484 ×2; 83690; 83880; 71045; 96372; 96374; 99285; J1650; J7030

== ENCOUNTER 2020-05-05 09:39 | Observation (INO) | payer OTHER ==
--- OUTSIDE RECORDS SUMMARY | 2020-05-05 09:40 | XMS REPORT | Clinical Summary ---
:1950 Author Organization [facility] Address [address] [place] [address] Care Team Providers Name Role Phone Unavailable [...] Not on file Results Not on fileafter 05/05/2019 Insurance Payer Benefit Plan / Group Subscriber ID Type Phone A ddress [facility] xxxxxxxxx ([place]) [place] [address] Advance Directives For more information, please contact:[address] [phone] Code Status Date Activated Date Inactivated Comments Full Code 02/05/2019 11:16 PM 02/07/2019 11:48 PM This code status was determined by: Patient
--- OUTSIDE RECORDS SUMMARY | 2020-05-05 09:41 | XMS REPORT | Continuity of Care Document ---
:1950 Author Organization [facility] t Address [address] [place] [address] Care Team Providers Name Role Phone Ruchi ELLINGTON Attending Clinician Unavailable Ruchi ELLINGTON Admitting Clinician Unavailable Problems Condition Condition Condition Status Onset Resolution Last Treating Co mments Source Name Details Category Date Date Treatment Clinician Date Biliary Biliary Disease Active [facility] colic colic 02-05 [facility] 00 [place] Essential Essential Disease Active [facility] hypertensi hypertensi 02-05 [facility] - on on 00:00: Medical 00 [place]gor[place] Type 2 Type 2 Disease Active [facility] diabetes diabetes 02-05 [facility] - mellitus mellitus 00:00: Medica l without without 00 Angora complicati complicati on, with on, with long-term long-term current current use of use of insulin insulin Allergies, Adverse Reactions, Alerts Allergy Allergy Status Severity Reaction(s) Onset Inactive Treating Comm ents Source Name Type Date Date Clinician Iodine Drug Active Anaphylaxis Shellfish [facility]: Medical Containi 00 Angora ng Products Levoflox Drug Active Anaphylaxis [facility] 02-05 [facility]: Medical 00 [place] Penicill Drug Active Anaphylaxis Itching, C [facility] ins Allergy 02-05 hives [facility]: Medical 00 [place] Family History Family Member Diagnosis Comments Start Date Stop Date Source Natural brother Cancer [facility] Natural brother Diabetes [facility] Natural brother Heart disease [facility] Natural father Heart disease [facility] Natural mother Heart disease [facility] Social History Social Habit Start Date Stop Date Quantity Comments Source History SDOH Alcohol [facility] Std Drinks [facility] History SDOH Alcohol [facility] Binge [facility] Sex Assigned At [facility] History SDOH Alcohol 2019-02-05 2019-02-05 1 [facility] - Frequency 00:00:00 00:00:00 Medical Center Smoking Status Start Date Stop Date Source Never smoker [facility] M edical [place] Medications Ordered Filled Start Stop Current Ordering [...] 22:39:00 IMAGINGReason for PATIENT ID: exam:->CBD STONES [id number] Examination: ERCP 4 fluoroscopic spot views were obtained during the procedure by the ordering service. Images are nondiagnostic as no radiologist was present at the time of imaging. Fluoroscopic time was 122.2 seconds. Please see the procedure report for details. Signed: Reyes Camp MDReport Verified Date/Time: 02/07/2019 22:39:15 Reading Location: [address] Reading Room -GLUCOSE METER 2019-02-07 18:25:00 Test Item Value Reference Range Interpretation Comme nts POC-GLUCOSE METER ([employer]) (test 200 mg/dL 70-110 H TESTED AT [address] code = 1538) [facility] 7703 0 POCT-GLUCOSE [id number] 15:42:00 Test Item Value Reference Range Interpretation Comments POC-GLUCOSE METER 164 mg/dL 70-110 H TESTED AT [place] [address] ([facility]) (test code = KRISTIN Finley [facility] 1538) [id number] POCT-GLUCOSE [id number] 12:01:00 Test Item Value Reference Range Interpretation Comments POC-GLUCOSE METER 189 mg/dL 70-110 H TESTED AT [facility] 6720 ([employer]) (test code = KRISTIN Finley [facility] 1538) [id number] POCT-GLUCOSE [id number] 05:00:00 Test Item Value Reference Range Interpretation Comments POC-GLUCOSE METER 196 mg/dL 70-110 H TESTED AT [facility] 67 ([facility]) (test code = KRISTIN Finley [facility] 1538) [id number] POCT-GLUCOSE [id number] 00:28:00 Test Item Value Reference Range Interpretation Comments POC-GLUCOSE METER 218 mg/dL 70-110 H TESTED AT [facility] 6720 ([facility]) (test code = KRISTIN Finley [place] 1538) [id number] POCT-GLUCOSE [id number] 17:58:00 Test Item Value Reference Range Interpretation Comments POC-GLUCOSE METER 155 mg/dL 70-110 H TESTED AT [facility] 6720 ([facility]) (test code = KRISTIN Finley [place] 1538) [id number] MR, ABDOMEN, [id number] 12:55:00FINAL REPORT TECHNIQUE: MRI of the abdomen [...] MDReport Verified Date/Time: 02/06/2019 12:55:19 Reading Location: [facility] B1 C013Y CT Body Reading Room POCT-GLUCOSE [id number] 11:33:00 Test Item Value Reference Range Interpretation Comments POC-GLUCOSE METER 190 mg/dL 70-110 H TESTED AT [facility] 6720 (BEAKER) (test code = KRISTIN Finley [place] 1538) [id number] POCT-GLUCOSE [id number] 06:13:00 Test Item Value Reference Range Interpretation Comments POC-GLUCOSE METER 210 mg/dL 70-110 H TESTED AT [facility] 6720 (BEAKER) (test code = KRISTIN [place] 1538) [id number] PROTHROMBIN [id number] 03:06:00 Test Item Value Reference Range Interpretation [...] INR is2.5-3.5 for patients wiht mechanical heart valves.[id number] 03:06:00 Test Item Value Reference Range Interpretation Comments MAGNESIUM (BEAKER) 1.3 mg/dL 1.6-2.6 L Specimen slightly (test code = 627) hemolyzed BASIC METABOLIC [id number] 03:06:00 Test Item Value Reference Range Interpretation [...] DIALYSIS PATIEN TS. Specimen slightly ictericHEPATIC FUNCTION [id number] 03:06:00 Test Item Value Reference Range Interpretation [...] Specimen slightly ictericCBC W/PLT COUNT & AUTO [id number] 02:50:00 Test Item Value Reference Range Interpretation [...] % 0-1 PERCENT (BEAKER) (test code = 2809) POCT-GLUCOSE [id number] 23:33:00 Test Item Value Reference Range Interpretation Comments POC-GLUCOSE METER 241 mg/dL 70-110 H TESTED AT [facility] 6720 (BEAKER) (test code = KRISTIN KUMAR 1538) [id number]
[2020-05-05 10:16] LABS: Absolute Lymphocytes (CBC) 1.8 K/uL (0.7-4.9); Basophils % 1.3 % (0-1.3); Hematocrit 44.4 % (36.0-45.0)
--- NOTE | 2020-05-05 10:30 | ER ---
Nurse's Notes [facility] Name: Laura Khanna Age: 70 yrs Sex: Female : 1950 Arrival Date: 05/05/2020 Time: 09:40 Bed 7 Private MD: Kin Hernandez Diagnosis: Chest pain, unspecified;Essential (primary) hypertension;Type 1 diabetes mellitus Presentation: 05/05 09:55 Chief complaint: Patient states: bilateral hip/ low back pain that began 2 days ago. ss Pain between shoulder blades described as burning/ tingling that began yesterday. Episode of chest pain with dizziness and nausea that began this morning. Coronavirus screen: Client denies travel out of the [place] in the last 14 days. Ebola Screen: Patient denies exposure to infectious person. Patient denies travel to an Ebola-affected area in the 21 days before illness onset. Initial Sepsis Screen: Does the patient meet any 2 criteria? No. Patient's initial sepsis screen is negative. Does the patient have a suspected source of infection? No. Patient's initial sepsis screen is negative. Risk Assessment: Do you want to hurt yourself or someone else? Patient reports no desire to harm self or others. Onset of symptoms was May 03, 2020. 09:55 Method Of Arrival: Ambulatory 09:55 Acuity: ZACARIAS 2 ss Historical: - Allergies: 10:01 Iodine; ss 10:01 Levaquin; ss 10:01 PENICILLINS; ss - PMHx: 10:01 Diabetes - IDDM; Hypertension; Hypothyroidism; Pancreatitis; ss - PSHx: 10:01 left thumb; Tonsillectomy; Hysterectomy; Cholecystectomy; Heart stents; left shoulder; ss - Immunization history:: Adult Immunizations up to date. - Social history:: Smoking status: Patient denies any tobacco usage or history of. - Family history:: not pertinent. Screenin:00 Abuse screen: Denies threats or abuse. Denies injuries from another. Nutritional sv screening: No deficits noted. Tuberculosis screening: No symptoms or risk factors identified. Fall Risk None identified. Assessment: 10:00 General: Appears in no apparent distress. comfortable, well groomed, well developed, sv Behavior is calm, cooperative, appropriate for age. Pain: Complains of pain in anterior aspect of left upper chest and left breast Pain radiates to left subscapular area and right subscapular area Pain began 1 day ago. Is intermittent. Neuro: Level of Consciousness is awake, alert, obeys commands, Oriented to person, place, time, situation, Moves all extremities. Full function Speech is normal. Cardiovascular: Patient's skin is warm and dry. Rhythm is sinus rhythm. Respiratory: Airway is patent Respiratory effort is even, unlabored, Respiratory pattern is regular, symmetrical. Derm: Skin is intact, Skin is pink, warm \T\ dry. Musculoskeletal: Range of motion: intact in all extremities. 11:00 Reassessment: Patient appears in no apparent distress at this time. No changes from sv previously documented assessment. Patient and/or family updated on plan of care and expected duration. Pain level reassessed. Patient is alert, oriented x 3, equal unlabored respirations, skin warm/dry/pink. 11:55 Reassessment: Dr Stuart at the bedside. sv 12:45 Reassessment: Patient appears in no apparent distress at this time. No changes from sv previously documented assessment. Patient and/or family updated on plan of care and expected duration. Pain level reassessed. Patient is alert, oriented x 3, equal unlabored respirations, skin warm/dry/pink. 13:45 Reassessment: Patient appears in no apparent distress at this time. No changes from sv previously documented assessment. Patient and/or family updated on plan of care and expected duration. Pain level reassessed. Patient is alert, oriented x 3, equal unlabored respirations, skin warm/dry/pink. Vital Signs: 09:55 BP 163 / 100; Pulse 86; Resp 17; Temp 98.8(TE); Pulse Ox 98% on R/A; Weight 102.06 kg; ss Height 5 ft. 5 in. (165.10 cm); Pain 9/10; 10:30 BP 144 / 82; Pulse 85; Resp 14; Pulse Ox 96% on R/A; vg1 11:00 BP 149 / 96; Pulse 87; Resp 15; Pulse Ox 99% on R/A; vg1 12:30 BP 105 / 52; Pulse 59 MON; Resp 17; Pulse Ox 96% on R/A; sv 13:28 BP 122 / 62; Pulse 64; Pulse Ox 97% on R/A; ss 09:55 Body Mass Index 37.44 (102.06 kg, 165.10 cm) ss 12:30 Sinus bradycardia sv ED Course: 09:40 Patient arrived in ED. ag5 09:41 Kin Hernandez MD is Private Physician. ag5 09:41 Chicho Lanza MD is Attending Physician. silvia 09:49 Geena Aguiar, IRINA is Primary Nurse. sv 10:00 Triage completed. ss 10:00 Patient has correct armband on for positive identification. Placed in gown. Bed in low sv position. Call light in reach. inspector eyeglass frames on. Pulse ox on. NIBP on. Door closed. Warm blanket given. Head of bed elevated. 10:00 Inserted saline lock: 20 gauge in left forearm, using aseptic technique. Blood sv collected. Missed attempt(s): 20 gauge in right antecubital area. Bleeding controlled, band aid applied, catheter tip intact. 10:01 Arm band placed on right wrist. ss 10:27 Preston Stuart DO is Hospitalizing Provider. silvia 11:23 Basic Metabolic Panel Sent. sv 11:23 CBC with Diff Sent. sv 11:23 LFT's Sent. sv 11:24 Magnesium Sent. sv 11:24 NT PRO-BNP Sent. sv 11:24 Troponin (emerg Dept Use Only) Sent. sv 11:24 Lipase Sent. sv 11:[address] via wheelchair. sv 11:25 Patient maintains SpO2 saturation greater than 95% on room air. sv 11:35 Urine Dipstick--Ancillary (enter results) Sent. vg1 11:49 XRAY Chest (1 view) Sent. vg1 12:39 Awaiting bed assignment. sv 12:39 CT Aorta for Dissection Sent. sv 13:49 No provider procedures requiring assistance completed. Patient admitted, IV remains in sv place. intact. Administered Medications: 11:17 Drug: Zofran (Ondansetron) 4 mg Route: IVP; Site: left forearm; sv 12:00 Follow up: Response: No adverse reaction sv 11:18 Drug: Lopressor (metoprolol TARTRATE) 50 mg Route: PO; sv 12:00 Follow up: Response: No adverse reaction sv 11:18 Drug: morphine 2 mg {Note: rass 0.} Route: IVP; Site: left forearm; sv 11:30 Follow up: Response: No adverse reaction; RASS: Alert and Calm (0) sv 11:19 Drug: SOLU-Medrol 125 mg Route: IVP; Site: left forearm; sv 12:00 Follow up: Response: No adverse reaction sv 11:19 Drug: Benadryl 50 mg Route: IVP; Site: left forearm; sv 12:00 Follow up: Response: No adverse reaction sv 11:19 Drug: Lopressor 2.5 mg Route: IVP; Site: left forearm; sv 11:20 Drug: Aspirin Chewable Tablet 243 mg Route: PO; sv 12:00 Follow up: Response: No adverse reaction sv 11:20 Drug: NS 0.9% 1000 ml Route: IV; Rate: 125 ml/hr; Site: left forearm; sv 13:52 Follow up: Response: No adverse reaction; IV Status: Infusion continued upon admission sv 11:20 Drug: Pepcid 40 mg Route: IVP; Site: left forearm; sv 12:00 Follow up: Response: No adverse reaction sv 12:45 Drug: Lovenox 100 mg Route: Sub-Q; Site: right lower abdomen; vg1 13:52 Follow up: Response: No adverse reaction sv Outcome: 10:29 Decision to Hospitalize by Provider. silvia 13:49 Admitted to Tele accompanied by tech, via wheelchair, room 206, with chart, Report sv called to Aaliyah AREVALO 13:49 Condition: stable 13:49 Instructed on the need for admit. 13:55 Patient left the ED. sv Signatures: Geena Aguiar, RN RN Chicho Lanza MD MD cha Smirch, Shelby, RN RN Rome Cuevas Victoria RN RN vg1 Corrections: (The following items were deleted from the chart) 11: 11:17 Zofran (Ondansetron) 4 mg IVP in left antecubital sv sv 11: 11:18 morphine 2 mg IVP in left antecubital sv sv 11: 11:19 Lopressor 2.5 mg IVP in left antecubital sv sv 11: 11:19 Benadryl 50 mg IVP in left antecubital sv sv 11: 11:19 SOLU-Medrol 125 mg IVP in left antecubital sv sv 11:22 11:20 Pepcid 40 mg IVP in left antecubital sv sv 11: 11:25 Inserted saline lock: 20 gauge in left forearm, using aseptic technique. Blood sv collected. Missed attempt(s): 20 gauge in right antecubital area. Bleeding controlled, band aid applied, catheter tip intact. sv
--- NOTE | 2020-05-05 10:30 | EDPHYS ---
Physician Documentation [facility] Name: Laura Khanna Age: 70 yrs Sex: Female : 1950 Arrival Date: 05/05/2020 Time: 09:40 Bed 7 Private MD: Kin Bob ED Physician Chicho Lanza HPI: 05/05 10:17 This 70 yrs old Female presents to ER via Ambulatory with complaints of Chest silvia Pain. 10:17 The patient or guardian reports chest pain that is located primarily in the substernal silvia area, anterior chest wall. Onset: just prior to arrival, this morning. The pain does not radiate. Associated signs and symptoms: Pertinent positives: nausea, shortness of breath, cack pain lower to upper back. The chest pain is described as a pressure. Duration: The patient or guardian reports multiple episodes, that wax and wane. Modifying factors: The symptoms are alleviated by nothing. the symptoms are aggravated by nothing. Severity of pain: At its worst the pain was moderate in the emergency department the pain has improved moderately. The patient has not experienced similar symptoms in the past. Historical: - Allergies: 10:01 Iodine; ss 10:01 Levaquin; ss 10:01 PENICILLINS; ss - PMHx: 10:01 Diabetes - IDDM; Hypertension; Hypothyroidism; Pancreatitis; ss - PSHx: 10:01 left thumb; Tonsillectomy; Hysterectomy; Cholecystectomy; Heart stents; left shoulder; ss - Immunization history:: Adult Immunizations up to date. - Social history:: Smoking status: Patient denies any tobacco usage or history of. - Family history:: not pertinent. ROS: 10:17 Constitutional: Negative for fever, chills, and weight loss, Eyes: Negative for injury, silvia pain, redness, and discharge, ENT: Negative for injury, pain, and discharge, Neck: Negative for injury, pain, and swelling, Respiratory: Negative for shortness of breath, cough, wheezing, and pleuritic chest pain, Abdomen/GI: Negative for abdominal pain, nausea, vomiting, diarrhea, and constipation, : Negative for injury, bleeding, discharge, and swelling, MS/Extremity: Negative for injury and deformity, Skin: Negative for injury, rash, and discoloration, Neuro: Negative for headache, weakness, numbness, tingling, and seizure, Psych: Negative for depression, anxiety, suicide ideation, homicidal ideation, and hallucinations, Allergy/Immunology: Negative for hives, rash, and allergies, Endocrine: Negative for neck swelling, polydipsia, polyuria, polyphagia, and marked weight changes, Hematologic/Lymphatic: Negative for swollen nodes, abnormal bleeding, and unusual bruising. 10:17 Cardiovascular: Positive for chest pain. 10:17 Back: Positive for pain at rest, of the left scapular area, right scapular area, thoracic area and lumbar area. 10:17 : Exam: 10:20 Constitutional: This is a well developed, well nourished patient who is awake, alert, silvia and in no acute distress. Head/Face: Normocephalic, atraumatic. Eyes: Pupils equal round and reactive to light, extra-ocular motions intact. Lids and lashes normal. Conjunctiva and sclera are non-icteric and not injected. Cornea within normal limits. Periorbital areas with no swelling, redness, or edema. ENT: Nares patent. No nasal discharge, no septal abnormalities noted. Tympanic membranes are normal and external auditory canals are clear. Oropharynx with no redness, swelling, or masses, exudates, or evidence of obstruction, uvula midline. Mucous membranes moist. Neck: Trachea midline, no thyromegaly or masses palpated, and no cervical lymphadenopathy. Supple, full range of motion without nuchal rigidity, or vertebral point tenderness. No Meningismus. Chest/axilla: Normal chest wall appearance and motion. Nontender with no deformity. No lesions are appreciated. Cardiovascular: Regular rate and rhythm with a normal S1 and S2. No gallops, murmurs, or rubs. Normal PMI, no JVD. No pulse deficits. Respiratory: Lungs have equal breath sounds bilaterally, clear to auscultation and percussion. No rales, rhonchi or wheezes noted. No increased work of breathing, no retractions or nasal flaring. Abdomen/GI: Soft, non-tender, with normal bowel sounds. No distension or tympany. No guarding or rebound. No evidence of tenderness throughout. Back: No spinal tenderness. No costovertebral tenderness. Full range of motion. Skin: Warm, dry with normal turgor. Normal color with no rashes, no lesions, and no evidence of cellulitis. MS/ Extremity: Pulses equal, no cyanosis. Neurovascular intact. Full, normal range of motion. Neuro: Awake and alert, GCS 15, oriented to person, place, time, and situation. Cranial nerves II-XII grossly intact. Motor strength 5/5 in all extremities. Sensory grossly intact. Cerebellar exam normal. Normal gait. Psych: Awake, alert, with orientation to person, place and time. Behavior, mood, and affect are within normal limits. 10:20 Abdomen/GI: Inspection: distension, Bowel sounds: normal, Palpation: nontender, Liver: no appreciated palpable abnormalities, Hernia: not appreciated. 10:33 ECG was reviewed by the Attending Physician. silvia Vital Signs: 09:55 BP 163 / 100; Pulse 86; Resp 17; Temp 98.8(TE); Pulse Ox 98% on R/A; Weight 102.06 kg; ss Height 5 ft. 5 in. (165.10 cm); Pain 9/10; 10:30 BP 144 / 82; Pulse 85; Resp 14; Pulse Ox 96% on R/A; vg1 11:00 BP 149 / 96; Pulse 87; Resp 15; Pulse Ox 99% on R/A; vg1 12:30 BP 105 / 52; Pulse 59 MON; Resp 17; Pulse Ox 96% on R/A; sv 13:28 BP 122 / 62; Pulse 64; Pulse Ox 97% on R/A; ss 09:55 Body Mass Index 37.44 (102.06 kg, 165.10 cm) ss 12:30 Sinus bradycardia sv MDM: 09:41 Patient medically screened. silvia 10:21 Differential diagnosis: abnormal EKG, acute myocardial infarction, coronary artery silvia disease chest wall pain, costochondritis, gastroesophageal reflux disease (GERD), hiatal hernia, pancreatitis, peptic ulcer disease, pneumonia, pulmonary embolus, unstable angina. HEART Score: History: Moderately Suspicious (1), ECG: Non specific repolarization disturbance / LBTB / PM (1), Age: > or = 65 years (2), Risk Factors: > or = 3 Risk factors for atherosclerotic disease (2), Troponin: < or = 1 x Normal Limit (0). The patient was given aspirin in the Emergency Department. The patient's deep vein thrombosis risk score was calculated as follows: Total Score: 0. This patient was found to be at low risk for a deep vein thrombosis by using the Well's assessment criteria. The patient's pulmonary embolism risk score was calculated as follows: Total Score: 0-2 points. This patient was found to be at low risk for a pulmonary embolism by using the Well's assessment criteria. LUPE Risk Score: not applicable. Data reviewed: vital signs, nurses notes, lab test result(s), EKG, radiologic studies, CT scan, plain films. Data interpreted: school lunch monitor: rate is 86 beats/min, Pulse oximetry: on room air is 98 %. Test interpretation: by ED physician or midlevel provider: ECG, plain radiologic studies. Counseling: I had a detailed discussion with the patient and/or guardian regarding: the historical points, exam findings, and any diagnostic results supporting the discharge/admit diagnosis, the presence of at least one elevated blood pressure reading (>120/80) during this emergency department visit, lab results, radiology results, the need for further work-up and treatment in the hospital. 10:29 Other consultation: dr bob called and want hospitalis to admit his patient. [facility] 05/05 09:42 Order name: Basic Metabolic Panel [facility] 05/05 09:42 Order name: CBC with Diff [facility] 05/05 09:42 Order name: LFT's [facility] 05/05 09:42 Order name: Magnesium [facility] 05/05 09:42 Order name: NT PRO-BNP [facility] 05/05 09:42 Order name: Troponin (emerg Dept Use Only) [facility] 05/05 09:47 Order name: Lipase [facility] 05/05 10:18 Order name: CBC with Automated Diff; Complete Time: 10:32 EDMS 05/05 10:30 Order name: Lipase; Complete Time: 10:32 EDGA 05/05 10:55 Order name: Urine Dipstick--Ancillary (enter results) 05/05 11:05 Order name: Basic Metabolic Panel; Complete Time: 11:10 EDMS 05/05 11:05 Order name: Liver (Hepatic) Function; Complete Time: 11:10 EDGA 05/05 11:05 Order name: Troponin (Emerg Dept Use Only); Complete Time: 11:10 EDGA 05/05 11:05 Order name: NT PRO-BNP; Complete Time: 11:10 EDGA 05/05 09:42 Order name: XRAY Chest (1 view) [facility] 05/05 10:33 Order name: CT Aorta for Dissection [facility] 05/05 11:05 Order name: Magnesium; Complete Time: 11:10 [facility] 05/05 11:07 Order name: Urine Dipstick-Ancillary; Complete Time: 11:10 [facility] 05/05 11:20 Order name: RAD [facility] 05/05 11:44 Order name: CT [facility] 05/05 09:42 Order name: EKG; Complete Time: 09:43 [facility] 05/05 09:42 Order name: Cardiac monitoring; Complete Time: 11:24 [facility] 05/05 09:42 Order name: EKG - Nurse/Tech; Complete Time: 11:49 [facility] 05/05 09:42 Order name: IV Saline Lock; Complete Time: 11:23 [facility] 05/05 09:42 Order name: Labs collected and sent; Complete Time: 11: [facility] 05/05 09:42 Order name: O2 Per Protocol; Complete Time: 11:23 [facility] 05/05 09:42 Order name: O2 Sat Monitoring; Complete Time: 11: [facility] 05/05 09:47 Order name: Urine Dipstick-Ancillary (obtain specimen); Complete Time: 11:24 [facility] EC:33 Rate is 87 beats/min. Rhythm is regular. QRS [place] is Normal. CT interval is normal. QRS silvia interval is normal. QT interval is normal. No Q waves. T waves are Normal. ST Segment is depressed in leads I, aVL. Clinical impression: NSR w/ Non-specific ST/T Changes. Interpreted by me. Reviewed by me. Administered Medications: 11:17 Drug: Zofran (Ondansetron) 4 mg Route: IVP; Site: left forearm; sv 12:00 Follow up: Response: No adverse reaction sv 11:18 Drug: Lopressor (metoprolol TARTRATE) 50 mg Route: PO; sv 12:00 Follow up: Response: No adverse reaction sv 11:18 Drug: morphine 2 mg {Note: rass 0.} Route: IVP; Site: left forearm; sv 11:30 Follow up: Response: No adverse reaction; RASS: Alert and Calm (0) sv 11:19 Drug: SOLU-Medrol 125 mg Route: IVP; Site: left forearm; sv 12:00 Follow up: Response: No adverse reaction sv 11:19 Drug: Benadryl 50 mg Route: IVP; Site: left forearm; sv 12:00 Follow up: Response: No adverse reaction sv 11:19 Drug: Lopressor 2.5 mg Route: IVP; Site: left forearm; sv 11:20 Drug: Aspirin Chewable Tablet 243 mg Route: PO; sv 12:00 Follow up: Response: No adverse reaction sv 11:20 Drug: NS 0.9% 1000 ml Route: IV; Rate: 125 ml/hr; Site: left forearm; sv 13:52 Follow up: Response: No adverse reaction; IV Status: Infusion continued upon admission sv 11:20 Drug: Pepcid 40 mg Route: IVP; Site: left forearm; sv 12:00 Follow up: Response: No adverse reaction sv 12:45 Drug: Lovenox 100 mg Route: Sub-Q; Site: right lower abdomen; vg1 13:52 Follow up: Response: No adverse reaction sv Disposition: 05/05/20 10:29 Hospitalization ordered by Preston Stuart for Observation. Preliminary diagnosis are Chest pain, unspecified, Essential (primary) hypertension, Type 1 diabetes mellitus. - Bed requested for Telemetry/MedSurg (observation). - Status is Observation. sv - Condition is Fair. - Problem is new. - Symptoms have improved. Signatures: Dispatcher [employer] Geena Birmingham RN RN sv Woody, Diana, RN RN dw Anderson, Corey, MD MD cha Smirch, Shelby, RN RN ss Garcia, Victoria, RN RN vg1 Corrections: (The following items were deleted from the chart) 13:18 10:29 Hospitalization Ordered by Preston Stuart DO for Observation. Preliminary dw diagnosis is Chest pain, unspecified; Essential (primary) hypertension; Type 1 diabetes mellitus. Bed requested for Telemetry/MedSurg (observation). Status is Observation. Condition is Fair. Problem is new. Symptoms have improved. silvia 13:55 13:18 05/05/2020 10:29 Hospitalization Ordered by Preston Stuart DO for Observation. sv Preliminary diagnosis is Chest pain, unspecified; Essential (primary) hypertension; Type 1 diabetes mellitus. Bed requested for Telemetry/MedSurg (observation). Status is Observation. Condition is Fair. Problem is new. Symptoms have improved. dw
[2020-05-05] MEDS ORDERED: METHYLPREDNISOLONE 125 MG INJ ONE (11:02)
[2020-05-05 11:03] LABS: ALT/SGPT 60 U/L (12-78); Albumin 3.8 g/dL (3.4-5.0); Alkaline Phosphatase 76 U/L (45-117); BUN Blood Urea Nitrogen 20 mg/dL (7-18); Bicarbonate 27 mmol/L (21-32); Bilirubin Direct < 0.1 mg/dL (0-0.2); Bilirubin Total 0.4 mg/dL (0.2-1.0); Glucose Level 219 mg/dL (74-106); NT PRO-BNP 171 pg/mL (<125); Sodium Level 136 mmol/L (136-145); Troponin (Emerg Dept Use Only) < 0.02 ng/mL (0.0-0.045)
[2020-05-05] MEDS ORDERED: ASPIRIN 81 MG CHEWABLE TABLET ONE (11:03)
[2020-05-05] MEDS ORDERED: METOPROLOL TAR 50 MG TAB ONE (11:03)
[2020-05-05] MEDS ORDERED: DIPHENHYDRAMINE 50 MG/ML VIAL ONE (11:03)
[2020-05-05 11:04] LABS: AST/SGOT 39 U/L (15-37); Potassium 3.8 mmol/L (3.5-5.1)
[2020-05-05] MEDS ORDERED: MORPHINE 2 MG/ML SYR ONE (11:04)
[2020-05-05] MEDS ORDERED: ONDANSETRON 4 MG/2 ML VIAL ONE (11:04)
[2020-05-05] MEDS ORDERED: METOPROLOL TARTRATE 5 MG/5 ML INJ IV ONE (11:04)
[2020-05-05] MEDS ORDERED: NA CHLORIDE 0.9% 1,000 ML ONE (11:04)
[2020-05-05] MEDS ORDERED: FAMOTIDINE 20 MG/2 ML VIAL IV ONE (11:04)
[2020-05-05 11:07] LABS: Urine Blood NEGATIVE (NEG); Urine Glucose 3+ (NEG); Urine Protein NEGATIVE (NEG)
--- NOTE | 2020-05-05 11:18 | RAD REPORT ---
EXAM DESCRIPTION: RAD - Chest Single View - 05/05/2020 11:02 am CLINICAL HISTORY: COUGH COMPARISON: February 19, 2020 TECHNIQUE: AP portable chest image was obtained 05/05/2020 11:02 am . FINDINGS: No mass or consolidation. Interstitial pattern is similar to comparison. Heart and vascula ture are normal. No measurable pleural effusion and no pneumothorax. No acute bony abnormality seen. No acute aortic findings suspected. IMPRESSION: No acute cardiopulmonary process. No significant change from comparison.
--- NOTE | 2020-05-05 11:42 | RAD REPORT ---
EXAM DESCRIPTION: CT - Angio Aorta For Dissection - 05/05/2020 11:32 am CLINICAL HISTORY: Chest pain;Dissection COMPARISON: Portable chest May 05 TECHNIQUE: Dynamically enhanced 3 mm thick images of the chest, abdomen, and upper pelvis were obtai divya during administration of approximately 150mL Isovue 370 IV contrast. Sagittal and coronal reconst ruction images were generated using MIP and reviewed. Exam utilizes a protocol to evaluate entire cou rse of the aorta. All CT scans are performed using dose optimization technique as appropriate and may include automated exposure control or mA/KV adjustment according to patient size. FINDINGS: Aorta is normal in diameter with no dissection or other acute aortic findings. Reconstruct ion images show no significant findings. Pulmonary arteries are normal as well. No cardiomegaly, pericardial thickening or pericardial effusio n. No mass or infiltrate in the lung parenchyma. No pleural thickening, pleural effusion or pneumothorax . No abnormal mediastinal or hilar mass or lymphadenopathy seen. No chest wall mass or abnormal axillar y lymphadenopathy. Celiac, SMA and renal arteries show no suspicious findings. Solid abdominal viscera and bowel show no significant findings. Cholecystectomy changes are present. Pneumobilia is present. No abnormal bilia ry tree dilatation. No mass or abnormal lymphadenopathy. No free air, free fluid or inflammatory str anding. No urinary bladder abnormality. No free air, free fluid or inflammatory stranding. Bony degenerative changes are present mild for age. No acute or destructive bone process. IMPRESSION: Negative CT scan of the aorta. No other significant findings on chest, abdomen and upper pelvis examination.
[2020-05-05] MEDS ORDERED: ENOXAPARIN 100 MG/ML SYR SQ ONE (12:53)
--- NOTE | 2020-05-05 13:19 | P.HP ---
Certification for Inpatient Patient admitted to: Observation With expected LOS: <2 Midnights Patient will require the following post-hospital care: None Practitioner: I am a practitioner with admitting privileges, knowledge of patient current condition, hospital course, and medical plan of care. Services: Services provided to patient in accordance with Admission requirements found in Title 42 Section 412.3 of the Code of Federal Regulations Patient History Date of Service: 05/05/20 Primary Care Provider: Dr. Hernandez(Covering for him); Cardiology-Dr. Nguyen Reason for admission: Chest pain, back pain History of Present Illness: 70-year-old female with history of hypothyroidism, diabetes mellitus type 2, GERD, hypertension and hyperlipidemia. Patient presented with multiple complaints including chest pain and back pain. She reports having back pain yesterday. This mainly to the thoracic lumbar region and cervical region. Pain was intense. It radiated down her leg. They and she also reported some chest pain today. He was mainly to the left side. There was associated with some dizziness and nausea. Pain would radiate to the back. She denied any heavy lifting, pushing or pulling. Symptoms did not improve. She denies any significant shortness of breath, headaches. She came to the ER for further evaluation. Vital signs stable. No significant EKG changes noted. Initial troponin unremarkable. CBC shows white count 10.6, hemoglobin 14.8. Sodium 136, potassium 3.8. BUN of 20, creatinine 0.98 with a GFR 56. Glucose 219. CT dissection unremarkable. Chest x-ray unremarkable. The patient was admitted her for observation. When I the patient ER, she appeared comfortable. She did report some improvement in the chest pain and back pain with morphine given in the ER. Patient sees Cardiology. Patient takes all her medications. She denies any alcohol or tobacco use. Patient reports history of CAD and prior stent in 2018. Heart catheterization performed October 2019. Heart catheterization shows normal circumflex and normal RCA. Pain proximal LAD stent noted. 20% ostial LAD noted. Patient determined to have mild CT. Medical management was recommended at that time. Allergies levofloxacin [From Levaquin] Allergy (Severe, Verified 01/19/12 14:52) Anaphylaxis Penicillins Allergy (Severe, Verified 01/19/12 14:51) Anaphylaxis iodine [Iodine] Allergy (Intermediate, Verified 01/19/12 14:52) Anaphylaxis povidone-iodine [From Betadine] Allergy (Verified 01/19/12 14:52) Anaphylaxis soap [From Betadine] Allergy (Verified 01/19/12 14:52) Anaphylaxis Iodine-Iodin Allergy (Intermediate, Uncoded 03/23/18 23:33) Unknown Home medications list reviewed: Yes Home Medications: Amlodipine [Norvasc] 5 mg PO DAILY 10/22/19 Aspirin 81 mg PO DAILY 10/22/19 Insulin Aspart [Novolog Flexpen] 10 unit SQ BID 10/22/19 Irbesartan 300 mg PO BEDTIME 10/22/19 Levothyroxine Sodium 75 mcg PO [id number] 10/22/19 Omeprazole [Prilosec] 40 mg PO BEDTIME 10/22/19 Insulin Detemir [Levemir] 56 unit SQ BID 30 Days #1 vial 10/24/19 - Past Medical/Surgical History Diabetic: Yes -: Diabetes mellitus type 2 [id number] -: Hypertension -: Hyperlipidemia -: Hypothyroidism -: Arthritis -: GERD -: CAD with prior stent -: Hysterectomy -: Cholecystectomy -: Appendectomy -: Left thumb joint replacement -: cardiact stent -Apr 2018 -: left shoulder surgery Psychosocial/ Personal History: Patient is a . She lives with a relative. - Family History Father -: Heart disease, Hypertension Notes: BECAUSE OF CHF PER PATIENT Mother -: Heart disease, Hypertension, Other (see notes) Notes: ALZHEIMERS, July 2018 - Social History Smoking Status: Never smoker Alcohol use: No CD- Drugs: No Caffeine use: Yes Place of Residence: Home Review of Systems General: As per HPI Eyes: Unremarkable ENT: Unremarkable Respiratory: Unremarkable Cardiovascular: Chest Pain, As per HPI Gastrointestinal: Nausea, As per HPI Genitourinary: Unremarkable Musculoskeletal: Neck Pain, Back Pain, As per HPI Integumentary: Unremarkable Neurological: Unremarkable Lymphatics: Unremarkable Physical Examination - Physical Exam General: Alert, In no apparent distress, Oriented x3, Cooperative HEENT: Atraumatic, Normocephalic, PERRLA, Mucous membr. moist/pink Neck: Supple Respiratory: Clear to auscultation bilaterally, Normal air movement Cardiovascular: Normal pulses, Regular rate/rhythm Gastrointestinal: Normal bowel sounds, Soft and benign, Non-distended, No ten derness, No masses, No rebound, No guarding Musculoskeletal: No erythema, No tenderness, No warmth Integumentary: No tenderness/swelling, No erythema, No warmth, No cyanosis Neurological: Normal speech, Normal strength at 5/5 x4 extr, Normal tone, Normal affect - Studies Laboratory Data (last 24 hrs) 05/05/20 10:00: Lipase 186 05/05/20 10:00: WBC 10.6, Hgb 14.8, Hct 44.4, Plt Count 271 05/05/20 10:00: Sodium 136, Potassium 3.8, BUN 20 H, Creatinine 0.98, Glucose 219 H, Magnesium 2.0, Total Bilirubin 0.4, AST 39 H, ALT 60, Alkaline Phosphatase 76 Assessment and Plan - Plan Impression: Chest pain with history of CAD and prior stent 2018 with noted heart catheterization October 2019 showing mild CAD Back pain suspect degenerative disc and joint disease of the spine Hypertension Diabetes mellitus type 2 zez-zifiqfe-ngjoemgay with hyperglycemia Hyperlipidemia Hypothyroidism GERD Plan: Chest pain with history of CAD and prior stent 2018 with noted heart catheterization October 2019 showing mild CAD: Patient will be admitted for observation. Will consult Cardiology for further recommendation. As mentioned, patient with heart catheterization in October showed mild CAD. Neuro stent needed at that time. Continue monitor cardiac enzymes and telemetry. Will obtain echocardiogram. Anticipate improvement with possible discharge as early as today or tomorrow pending Cardiology recommendation. Back pain suspect degenerative disc and joint disease of the spine: Will obtain x-rays of the neck, thoracic and lumbar region. Will provide medication for pain. Hypertension: Continue home medications. Diabetes mellitus type 2 cvo-ujeklxb-ocqlouort with hyperglycemia: Will provide sliding scale. Hyperlipidemia: Continue medication. Will check fasting lipid panel. Hypothyroidism: Check tsh and free T4. Continue medication. GERD: Continue medication. Discharge Plan: Home Plan to discharge in: 24 Hours - Advance Directives Does patient have a Living Will: No Does patient have a Durable POA for Healthcare: No - Code Status/Comfort Care Code Status Assessed: Yes (Patient is full code) Time Spent Managing Pts Care (In Minutes): 55
[2020-05-05] MEDS ORDERED: TRAMADOL HCL 50 MG TAB PO PRN (14:03)
[2020-05-05] MEDS ORDERED: HYDROCODONE/APAP 7.5/325 MG TAB PO PRN (14:03)
[2020-05-05] MEDS ORDERED: ONDANSETRON 4 MG/2 ML VIAL IV PRN (14:03)
[2020-05-05] MEDS ORDERED: ACETAMINOPHEN 500 MG TAB PO PRN (14:03)
[2020-05-05 14:23] VITALS: O2SAT 98; BMI 37.4
[2020-05-05 14:30] VITALS: BP 155/68; TEMP 97.9
--- NOTE | 2020-05-05 14:43 | CON ---
Date of Consultation: 05/05/2020 Reason For Consultation: Chest pain. History Of Present Illness: This is a 70-year-old female with a history of dyslipidemia, hypertensio n, hypothyroidism, diabetes, acid reflux, coronary artery disease with prior stent placement, present ed to the emergency room. Shortness of breath has been worsening over the past few days along with c hest pain this morning, left-sided, no radiation, not related to exertion. Mild dizziness is present . Denied trauma. At the time of my evaluation, she was totally pain free. Past Medical History: As outlined above in HPI. Medications: Refer to reconciliation sheet for detailed list. Allergies: LEVAQUIN, PENICILLIN, IODINE. Family History: No premature coronary artery disease or cancer. Social History: Does not smoke or drink or use any drugs. Review of Systems: All systems reviewed and they were negative except what mentioned in the HPI. Physical Examination: Vital Signs: Temperature is 98.4, pulse 74, breathing at 18, blood pressure is 134/74. General: Pleasant elderly female, in no apparent distress. Head and Neck: Pupils are equal and reactive to light. Intact eye movements. No JVD. No cervical lymphadenopathy. Neck is supple. Thyroid is not enlarged. Lungs: Clear to auscultation bilaterally. No rhonchi, rales, or crackles. No accessory muscle use. Heart: Regular rate and rhythm. No extra sounds. Abdomen: Soft, nontender. Bowel sounds positive. No organomegaly. No masses or hernia. No rigidi ty or rebound. Extremities: No edema, clubbing, or cyanosis. Intact pulses. Skin: No rashes. Neurologic: Alert, awake, oriented x3. No acute focal deficits appreciated. Investigations: EKG, left bundle-branch block, but it is unchanged comparing to an EKG from February of this year. The patient had a heart catheterization in February of this year showing mild coronary artery disease and no obstructive disease and patent stents. The troponin less than 0.02. Creatinine is n ormal. She had a CTA PE protocol negative. Assessment And Recommendations: Chest pain, atypical. She had a heart catheterization in October with out significant obstructive disease. Recommend to rule out cardiac enzymes. If troponins are negati ve, she can be discharged from Cardiology standpoint and follow up with Dr. Nguyen and plan for a st ress test as an outpatient. Thank you for the courtesy of this consultation. /ALFRED Voice ID: [id number] Report ID: [id number]
[2020-05-05] MEDS ORDERED: D50W 25 GM/50 ML SYRINGE/VIAL IV PRN (15:00)
[2020-05-05] MEDS ORDERED: GLUCAGON 1 MG/VIAL IM PRN (15:00)
[2020-05-05] MEDS ORDERED: ENOXAPARIN 40 MG/0.4 ML SQ SCH (15:00)
[2020-05-05 15:20] LABS: CKMB Creatine Kinase MB < 1.0 ng/mL (0.3-3.6); Creatine Phosphokinase 37 U/L (26-192); Troponin I < 0.02 ng/mL (0.0-0.045)
--- NOTE | 2020-05-05 15:30 | RAD REPORT ---
EXAM DESCRIPTION: RAD - C Spine W Obliques - 05/05/2020 3:19 pm CLINICAL HISTORY: Neck pain FINDINGS: Slight anterior subluxation C4-C5 Osteoporosis No fracture Spondylosis involves mid and distal cervical spine. There is mild bony encroachment upon bilateral ne ural foramina at several these levels.
--- NOTE | 2020-05-05 15:30 | RAD REPORT ---
EXAM DESCRIPTION: RAD - Thoracic Spine Ap/Lat - 05/05/2020 3:19 pm CLINICAL HISTORY: Back pain FINDINGS: No fracture is seen. Mild spondylosis. Osteoporosis. No dislocation
--- NOTE | 2020-05-05 15:31 | RAD REPORT ---
EXAM DESCRIPTION: RAD - Lumbar Spine 3 Views - 05/05/2020 3:21 pm CLINICAL HISTORY: Back pain FINDINGS: The alignment of the lumbar spine is satisfactory. No fracture or dislocation is seen. Bones are osteoporotic. Osteoarthritis involves the facet joints of the lower lumbar spine
--- NOTE | 2020-05-05 15:31 | P.DS ---
Admission Date: 05/05/20 Discharge Date: 05/05/20 Primary Care Provider: Dr. Hernandez(Covering for him); Cardiology-Dr. Nguyen Disposition: ROUTINE DISCHARGE Discharge Condition: GOOD Reason for Admission: Chest pain, back pain Consultations: Cardiology-Dr. Hung Procedures: CT Dissection: FINDINGS: Aorta is normal in diameter with no dissection or other acute aortic findings. Reconstruction images show no significant findings. Pulmonary arteries are normal as well. No cardiomegaly, pericardial thickening or pericardial effusion. No mass or infiltrate in the lung parenchyma. No pleural thickening, pleural effusion or pneumothorax. No abnormal mediastinal or hilar mass or lymphadenopathy seen. No chest wall mass or abnormal axillary lymphadenopathy. Celiac, SMA and renal arteries show no suspicious findings. Solid abdominal viscera and bowel show no significant findings. Cholecystectomy changes are present. Pneumobilia is present. No abnormal biliary tree dilatation. No mass or abnormal lymphadenopathy. No free air, free fluid or inflammatory stranding. No urinary bladder abnormality. No free air, free fluid or inflammatory stranding. Bony degenerative changes are present mild for age. No acute or destructive bone process. IMPRESSION: Negative CT scan of the aorta. No other significant findings on chest, abdomen and upper pelvis examination. C spine: FINDINGS: Slight anterior subluxation C4-C5 Osteoporosis No fracture Spondylosis involves mid and distal cervical spine. There is mild bony encroachment upon bilateral neural foramina at several these levels. T spine: FINDINGS: No fracture is seen. Mild spondylosis. Osteoporosis. No dislocation L spine: FINDINGS: The alignment of the lumbar spine is satisfactory. No fracture or dislocation is seen. Bones are osteoporotic. Osteoarthritis involves the facet joints of the lower lumbar spine Medical Problem List: Chest pain with history of CAD and prior stent 2019 with noted heart catheterization October 2019 showing mild CAD Back pain suspect degenerative disc and joint disease of the spine Hypertension Diabetes mellitus type 2 insulin-dependent with hyperglycemia Hyperlipidemia Hypothyroidism GERD Brief History of Present Illness: 70-year-old female with history of hypothyroidism, diabetes mellitus type 2, GERD, hypertension and hyperlipidemia. Patient presented with multiple complaints including chest pain and back pain. She reports having back pain yesterday. This mainly to the thoracic lumbar region and cervical region. Pain was intense. It radiated down her leg. They and she also reported some chest pain today. He was mainly to the left side. There was associated with some dizziness and nausea. Pain would radiate to the back. She denied any heavy lifting, pushing or pulling. Symptoms did not improve. She denies any significant shortness of breath, headaches. She came to the ER for further evaluation. Vital signs stable. No significant EKG changes noted. Initial troponin unremarkable. CBC shows white count 10.6, hemoglobin 14.8. Sodium 136, potassium 3.8. BUN of 20, creatinine 0.98 with a GFR 56. Glucose 219. CT di ssection unremarkable. Chest x-ray unremarkable. The patient was admitted her for observation. When I the patient ER, she appeared comfortable. She did report some improvement in the chest pain and back pain with morphine given in the ER. Patient sees Cardiology. Patient takes all her medications. She denies any alcohol or tobacco use. Patient reports history of CAD and prior stent in 2017. Heart catheterization performed October 2019. Heart catheterization shows normal circumflex and normal RCA. Pain proximal LAD stent noted. 20% ostial LAD noted. Patient determined to have mild CT. Medical management was recommended at that time. Hospital Course: Patient presented with Chest pain with history of CAD and prior stent 2018 with noted heart catheterization October 2019 showing mild CAD. Cardiac enzymes unremarkable. Patient was admitted for further evaluation. CT dissection unremarkable. Patient seen and evaluated by Cardiology. Heart catheterization reviewed from October 2019. Patient had mild CAD. Prior stent patent. No stent required. No need for intervention at this time. Cardiology recommends that she follows of an 2-4 weeks to follow up this hospitalization. Patient can have outpatient stress test if chest pain persists. At discharge patient will continue with her current medications. Patient also reported back pain. Suspect degenerative disc and joint disease of the spine. X-rays of the cervical, thoracic and lumbar region obtained. X-ray showed spondylosis to the cervical spine, slight anterior subluxation C4 through C5, osteoporosis to multiple areas, mild spondylosis to the T-spine, and osteoarthritis to the lumbar spine. Patient may take Tylenol as needed for pain. Patient may benefit with pain management evaluation as an outpatient. This can be done with the help of her PCP. Patient reports she has seen pain management in the past with injections to the spine with improvement. Patient may take Tylenol or ibuprofen as needed but limit use due to potential side effects. Patient with hypertension, diabetes mellitus type 2 non-insulin dependent, hyperlipidemia, hypothyroidism, and GERD. This appears stable. At discharge she will continue with her medications including levothyroxine 75 mcg daily, metformin 1000 mg 1 pill twice daily, Prilosec 40 mg daily, Lipitor 80 mg daily, irbesartan 300 mg at bedtime, Norvasc 5 mg daily, Levemir 56 units subcu twice daily and aspirin 81 mg daily. Vital Signs/Physical Exam: Temp Pulse Resp BP Pulse Ox 97.9 F 68 20 155/68 H 95 05/05/20 14:03 05/05/20 14:03 05/05/20 14:03 05/05/20 14:03 05/05/20 14:03 General: Alert, In no apparent distress, Oriented x3, Cooperative HEENT: Atraumatic, Mucous membr. moist/pink Neck: Supple Respiratory: Clear to auscultation bilaterally, Normal air movement Cardiovascular: Normal pulses, Regular rate/rhythm Gastrointestinal: Normal bowel sounds, Soft and benign, Non-distended, No tenderness, No masses, No rebound, No guarding Integumentary: No tenderness/swelling, No erythema, No warmth, No cyanosis Neurological: Normal speech, Normal strength at 5/5 x4 extr, Normal tone, Normal affect Laboratory Data at Discharge: WBC 10.6 K/uL (4.3-10.9) 05/05/20 10:00 Hgb 14.8 g/dL (12.0-15.0) 05/05/20 10:00 Hct 44.4 % (36.0-45.0) 05/05/20 10:00 Plt Count 271 K/uL (152-406) 05/05/20 10:00 Sodium 136 mmol/L (136-145) 05/05/20 10:00 Potassium 3.8 mmol/L (3.5-5.1) 05/05/20 10:00 BUN 20 mg/dL (7-18) H 05/05/20 10:00 Creatinine 0.98 mg/dL (0.55-1.3) 05/05/20 10:00 Glucose 219 mg/dL (74-106) H 05/05/20 10:00 Magnesium 2.0 mg/dL (1.8-2.4) 05/05/20 10:00 Total Bilirubin 0.4 mg/dL (0.2-1.0) 05/05/20 10:00 AST 39 U/L (15-37) H 05/05/20 10:00 ALT 60 U/L (12-78) 05/05/20 10:00 Alkaline Phosphatase 76 U/L (45-117) 05/05/20 10:00 Troponin I < 0.02 ng/mL (0.0-0.045) 05/05/20 14:55 Lipase 186 U/L (73-393) 05/05/20 10:00 Home Medications: Amlodipine [Norvasc*] 5 mg PO DAILY 10/22/19 Aspirin 81 mg PO DAILY 10/22/19 Irbesartan 300 mg PO BEDTIME 10/22/19 Levothyroxine Sodium 75 mcg PO [id number] 10/22/19 Omeprazole [Prilosec] 40 mg PO BEDTIME 10/22/19 Insulin Detemir [Levemir] 56 unit SQ BID 30 Days #1 vial 10/24/19 Atorvastatin Calcium [Lipitor] 80 mg PO BEDTIME 05/05/20 Metformin HCl [Metformin ER Gastric] 1,000 mg PO BID 05/05/20 Patient Discharge Instructions: 1. Follow up with PCP in 1 week to follow up this hospitalization. 2. Patient presented with Chest pain with history of CAD and prior stent 2019 with noted heart catheterization October 2019 showing mild CAD. Cardiac enzymes unremarkable. Patient was admitted for further evaluation. CT dissection unremarkable. Patient seen and evaluated by Cardiology. Heart catheterization reviewed from October 2019. Patient had mild CAD. Prior stent patent. No stent required. No need for intervention at this time. Cardiology recommends that she follows of an 2-4 weeks to follow up this hospitalization. Patient can have outpatient stress test if chest pain persists. At discharge patient will continue with her current medications. 3. Patient also reported back pain. Suspect degenerative disc and joint disease of the spine. X-rays of the cervical, thoracic and lumbar region obtained. X-ray showed spondylosis to the cervical spine, slight anterior subluxation C4 through C5, osteoporosis to multiple areas, mild spondylosis to the T-spine, and osteoarthritis to the lumbar spine. Patient may take Tylenol as needed for pain. Patient may benefit with pain management evaluation as an outpatient. This can be done with the help of her PCP. Patient reports she has seen pain management in the past with injections to the spine with improvement. Patient may take Tylenol or ibuprofen as needed but limit use due to potential side effects. 4. Patient with hypertension, diabetes mellitus type 2 non-insulin dependent, hyperlipidemia, hypothyroidism, and GERD. This appears stable. At discharge she will continue with her medications including levothyroxine 75 mcg daily, metformin 1000 mg 1 pill twice daily, Prilosec 40 mg daily, Lipitor 80 mg daily, irbesartan 300 mg at bedtime, Norvasc 5 mg daily, Levemir 56 units subcu twice daily and aspirin 81 mg daily. Diet: ADA Activity: Fall precautions Time spent managing pt's care (in minutes): 55
[2020-05-05] MEDS ORDERED: INSULIN -REGULAR HUMAN 50 UNIT/0.5 ML ML SQ SCH (16:30)
[2020-05-05] MEDS ORDERED: ATORVASTATIN 40 MG TAB PO SCH (21:00)
[2020-05-06] MEDS ORDERED: PANTOPRAZOLE 40MG TABLET PO SCH (06:30)
[2020-05-06] MEDS ORDERED: LEVOTHYROXINE SOD 0.075 MG TAB PO SCH (06:30)
[2020-05-06] MEDS ORDERED: AMLODIPINE 5 MG TAB PO SCH (09:00)
[2020-05-06] MEDS ORDERED: ASPIRIN EC 81 MG TAB PO SCH (09:00)
--- NOTE | 2020-05-06 10:47 | EKG ---
Test Date: 2020-05-05 Test Time: 09:59:47 Horticultural Agent: IZA MEASUREMENT RESULTS: Intervals: Rate: 87 MD: 152 QRSD: 126 QT: 384 QTc: 462 [place]: P: 48 MD: 152 QRS: -57 T: 107 INTERPRETIVE STATEMENTS: Sinus rhythm with fusion complexes Left axis deviation Left bundle branch block Abnormal ECG Compared to ECG 02/19/2020 13:49:15 Fusion complex(es) now present Electronically Signed On 05-06-20 10:45:04 CDT by Bienvenido Nguyen
[2020-05-08 23:34] LABS: Albumin, (SPE) 3.5 g/dL (3.8-4.8); Alpha-1-Globulins 0.3 g/dL (0.2-0.3); Alpha-2-Globulins 1.3 g/dL (0.5-0.9); Gamma Globulins 0.9 g/dL (0.8-1.7); INTERPRETATION REPORT
== END 2020-05-05 16:21 | disposition home or self-care (01) ==
LOC: ER 09:39 → ERHOLD 12:16 → 2ND 13:45
PROVIDERS: ADMIT Family Medicine; ATTEND Family Medicine
DX: R07.9 Chest pain, unspecified (principal); I25.10 Atherosclerotic heart disease of native coronary artery without angina pectoris; Z95.5 Presence of coronary angioplasty implant and graft; M54.9 Dorsalgia, unspecified; I10 Essential (primary) hypertension; E11.65 Type 2 diabetes mellitus with hyperglycemia; E78.5 Hyperlipidemia, unspecified; E03.9 Hypothyroidism, unspecified; K21.9 Gastro-esophageal reflux disease without esophagitis; Z79.4 Long term (current) use of insulin; M47.812 Spondylosis without myelopathy or radiculopathy, cervical region; M81.0 Age-related osteoporosis without current pathological fracture; M47.816 Spondylosis without myelopathy or radiculopathy, lumbar region; R94.31 Abnormal electrocardiogram [ECG] [EKG]; I44.7 Left bundle-branch block, unspecified; M19.90 Unspecified osteoarthritis, unspecified site; Z96.692 Finger-joint replacement of left hand
CPT/HCPCS: 96361; 93005; 85025; 80048; 36415; 83735; 82550; 80076; 81003; 84484 ×2; 82553; 83690; 83880; 84165; 71275; 74175; 71045; 72050; 72100; 72070; 96375; 96372; 96374; 99285; Q9967; J1200; J1650; J2270; J7030; J2930; J2405; G0378 ×2

== ENCOUNTER 2020-12-21 06:52 | Emergency (ER) | payer OTHER ==
--- OUTSIDE RECORDS SUMMARY | 2020-12-21 06:56 | XMS REPORT | Continuity of Care Document ---
:1950 Author Organization [facility] t Address [address] [place] [address] Care Team Providers Name Role Phone Pablo LR S Attending Clinician Doctor Unassigned, Name Attending Clinician Unavailable Only, Test Attending Clinician Unavailable Ruchi ELLINGTON Attending Clinician Unavailable Pablo LR S Admitting Clinician Ruchi ELLINGTON Admitting Clinician Unavailable Problems Condition Condition Condition Status Onset Resolution Last Treating Co mments Source Name Details Category Date Date Treatment Clinician Date Biliary Biliary Disease Active [facility] colic colic 02-05 [facility] - 00:00: Medical 00 [place] Essential Essential Disease Active [facility] hypertensi hypertensi 02-05 Jacqueline kes - on on 00:00: Medical 00 [place] Type 2 Type 2 Disease Active [facility] diabetes diabetes 02-05 [facility] - mellitus mellitus 00:00: Medica l without without 00 Center complicati complicati on, with on, with long-term long-term current current use of use of insulin insulin Allergies, Adverse Reactions, Alerts Allergy Allergy Status Severity Reaction(s) Onset Inactive Treating Comm ents Source Name Type Date Date Clinician Iodine Drug Active Anaphylaxis Shellfish [facility] 02-05 , [facility] - Iodide 00:00: Medical Containi 00 Center ng Products Levoflox Drug Active Anaphylaxis [facility] Allergy 02-05 [facility] - 00:[facility]: Medical 00 Center Penicill Drug Active Anaphylaxis Itching, C [facility] ins Allergy 02-05 hives [facility] - 00:[facility]: Medical 00 Center Family History Family Member Diagnosis Comments Start Date Stop Date Source Natural mother Heart disease [facility] Natural brother Cancer [facility] Natural brother Diabetes [facility] Natural brother Heart disease [facility] Natural father Heart disease [facility] Social History Social Habit Start Date Stop Date Quantity Comments Source History SDOH [facility] - Alcohol Std Drinks Medica l Center History [facility] - Alcohol Binge Medical Efraín ter Sex Assigned At [facility] Tobacco use and 2019-02-12 2019-02-12 Never used [facility] - exposure 00:00:00 00:00:00 [facility] Alcohol intake 2019-02-12 2019-02-12 Current [facility] es - 00:00:00 00:00:00 non-drinker of Medical Ce nter alcohol (finding) History SDOH 2019-02-05 2019-02-[address] [facility] [address] kes - Alcohol Frequency 00:00:00 00:00:00 [facility] Smoking Status Start Date Stop Date Source Never smoker [facility] M edical [place] Medications Ordered Filled Start Stop Current Ordering Indication Dosage Frequency Signature Comments Components Source Medication Medication Date Date Medication? Clinician (SIG) Name Name irbesartan Yes 300mg QD Take [address] (AVAPRO) 7-03 mg by [facility] - 300 MG 21:48: mouth Medical tablet 31 daily. [place] omeprazole Yes 40mg QD Take [address] (PRILOSEC) 7-03 by mouth [facility] - 40 MG 21:48: daily. Medical capsule 31 Center levothyroxi Yes 75ug Take [address] [facility] 7-03 mcg by [facility] - (SYNTHROID, 21:48: mouth Medic al LEVOTHROID) 31 Every Center 75 MCG morning on tablet an empty stomach. metFORMIN Yes 1000mg Take 1,[address] (GLUMETZA) 7-03 mg by [facility] - 1000 MG 21:48: mouth 2 Medical (MOD) 24 hr 31 (two) Center tablet times daily with breakfast and dinner. atorvastati Yes 80mg QD Take [address] [facility] (LIPITOR) 7-03 by mouth Luke s - 80 MG 21:48: nightly. Medical tablet 31 Center amLODIPine Yes 5mg QD Take [address] (NORVASC) 7-03 by mouth [facility] - 10 MG 21:48: daily. Medical tablet 31 Center ondansetron Yes 4mg Take [address] (ZOFRAN) 4 7-03 by mouth [facility] - mg/5 mL 21:48: every 6 Medical solution 31 (six) Center hours as needed for Nausea. aspirin 81 Yes 81mg QD Take [address] MG EC 7-03 by mouth [facility] - tablet 21:48: daily. [place] [address] Center insulin Yes 50U Q.5D Inject 50 [facility] 7-03 Units [facility] - U-100 21:48: subcutaneo Medica l (LEVEMIR) 31 [facility] 2 Center 100 unit/mL (two) injection times daily . Procedures This patient has no known procedures. Plan of Care Planned Activity Planned Date Details Comments Source Future Scheduled 2020-04-[address] [facility] - Test 00:00:00 (#1) [code = [facility] INFLUENZA VACCINE (#1)] Future Scheduled 2019-08-[address] [facility] - Test 00:00:00 WELLNESS (YEAR 2 or Medical Center FIRST YEAR if no IPPE) [code = MEDICARE ANNUAL WELLNESS (YEAR 2 or FIRST YEAR if no IPPE)] Future Scheduled 2019-02-[address] Jacqueline kes - Test 00:00:00 measurement Medical Center (procedure) [code = 82481577] Future Scheduled 1959 DIABETIC EYE EXAM [facility] - Test 00:00:00 [code = DIABETIC EYE Medical Center EXAM] Future Scheduled [address] [facility] - Test 00:00:00 examination Medical Center (regime/therapy) [code = 858821487] Future Scheduled 1959 Urine screening for [facility] - Test 00:00:00 protein (procedure) Medical Center [code = 508475560] Future Scheduled [address] [facility] - Test 00:00:00 malignant neoplasm of Medica l Center breast (procedure) [code = 420619945] Future Scheduled [address] [facility] - Test 00:00:00 malignant neoplasm of [facility] colon (procedure) [code = 814083103] Encounters Start End Encounter Admission Attending Care Care Encounter Source Date/Time Date/Time Type Type Clinicians Facility Department ID 2020-06-30 2020-06-30 [facility] [id number] 06:46:00 08:16:00 Encounter Chema May [id number] [place] [id number] Surgical [id number] [place] 071 2020-06-30 2020-06-30 Orders Doctor FRANKY [id number] 00:00:00 00:00:00 Only Unassigned, PETEY [id number] Rosine [facility] [id number] 2020-06-27 2020-06-27 Laboratory Only, [facility] [id number] 07:50:58 08:05:58 Only Test Yadira [id number] [place] [id number] [place] [id number] Results Test Description Test Time Test Comments Results Result [facility] e Comments [place], ERCP 2019-02-07 INTRA OP FINAL REPORT 22:39:00 IMAGINGReason for PATIENT ID: exam:->CBD STONES [id number] Examination: ERCP 4 fluoroscopic spot views were obtained during the procedure by the ordering service. Images are nondiagnostic as no radiologist was present at the time of imaging. Fluoroscopic time was 122.2 seconds. Please see the procedure report for details. Signed: Silas Camp MDReport Verified Date/Time: 02/07/2019 22:39:15 Reading Location: [address] Reading Room -GLUCOSE METER 2019-02-07 18:25:00 Test Item Value Reference Range Interpretation Comme [facility] POC-GLUCOSE METER (LAURI) (test 200 mg/dL 70-[address] [facility] [address] [place] [address] code = 1538) [facility] [id number] POCT-GLUCOSE [id number] 15:42:00 Test Item Value Reference Range Interpretation Comments POC-GLUCOSE METER 164 mg/dL 70-110 H TESTED AT [place] [address] ([facility]) (test code = KRISTIN Finley [facility] 1538) [id number] POCT-GLUCOSE [id number] 12:01:00 Test Item Value Reference Range Interpretation Comments POC-GLUCOSE METER 189 mg/dL 70-110 H TESTED AT [place] [address] ([facility]) (test code = KRISTIN Finley [facility] 1538) [id number] POCT-GLUCOSE [id number] 05:00:00 Test Item Value Reference Range Interpretation Comments POC-GLUCOSE METER 196 mg/dL 70-110 H TESTED AT [place] [address] ([facility]) (test code = KRISTIN Finley [facility] 1538) [id number] POCT-GLUCOSE [id number] 00:28:00 Test Item Value Reference Range Interpretation Comments POC-GLUCOSE METER 218 mg/dL 70-110 H TESTED AT [place] [address] ([facility]) (test code = KRISTIN Finley [facility] 1538) [id number] POCT-GLUCOSE [id number] 17:58:00 Test Item Value Reference Range Interpretation Comments POC-GLUCOSE METER 155 mg/dL 70-110 H TESTED AT [place] [address] ([facility]) (test code = KRISTIN Finley [facility] 1538) [id number] MR, ABDOMEN, [id number] 12:55:00FINAL REPORT TECHNIQUE: MRI of the abdomen [...] MDReport Verified Date/Time: 02/06/2019 12:55:19 Reading Location: [address] Body Reading Room POCT-GLUCOSE [id number] 11:33:00 Test Item Value Reference Range Interpretation Comments POC-GLUCOSE METER 190 mg/dL 70-110 H TESTED AT [place] [address] ([facility]) (test code = KRISTIN Finley [facility] 1538) [id number] POCT-GLUCOSE [id number] 06:13:00 Test Item Value Reference Range Interpretation Comments POC-GLUCOSE METER 210 mg/dL 70-110 H TESTED AT [place] [address] ([facility]) (test code = KRISTIN Finley [facility] 1538) [id number] PROTHROMBIN [id number] 03:06:00 Test Item Value Reference Range Interpretation Comments PROTIME (OnePIN) (test code = 15.4 seconds 11.9-14.2 H 759) INR ([facility]) (test code = 370) 1.3 <=5.9 Effective 01/03/2019: PT Reference Range ChangeNew: 11.9-14.2 Previous: 11.7- 14.7RECOMMENDED COUMADIN/WARFARIN INR THERAPY RANGESSTANDARD DOSE: 2.0-3.0 Includes: PROPHYLAXIS for venous thrombosis, systemic embolization; TREATMENT for venous thrombosis and/or pulmonary embolus.HIGH RISK: Target INR is2.5-3.5 for patients wiht mechanical heart valves.[id number] 03:06:00 Test Item Value Reference Range Interpretation Comments MAGNESIUM (OnePIN) 1.3 mg/dL 1.6-2.6 L Specimen slightly (test code = 627) hemolyzed BASIC METABOLIC [id number] 03:06:00 Test Item Value Reference Range Interpretation [...] DIALYSIS PATIEN TS. Specimen slightly ictericHEPATIC FUNCTION [id number] 03:06:00 Test Item Value Reference Range Interpretation [...] Specimen slightly ictericCBC W/PLT COUNT & AUTO [id number] 02:50:00 Test Item Value Reference Range Interpretation [...] (test code = 416) BASOPHILS ABSOLUTE COUNT ([facility]) 0.02 K/ L 0.01-0.08 (test code = 417) IMMATURE GRANULOCYTES-RELATIVE 0 % 0-1 PERCENT ([facility]) (test code = 2801) POCT-GLUCOSE [id number] 23:33:00 Test Item Value Reference Range Interpretation Comments POC-GLUCOSE METER 241 mg/dL 70-[address] [facility] 6720 ([facility]) (test code = KRISTIN KUMAR 1538) [id number]
[2020-12-21] MEDS ORDERED: MORPHINE 4 MG/ML SYR ONE (08:21)
[2020-12-21] MEDS ORDERED: NA CHLORIDE 0.9% 1,000 ML ONE (08:21)
[2020-12-21] MEDS ORDERED: ONDANSETRON 4 MG/2 ML VIAL ONE (08:21)
[2020-12-21 08:23] LABS: Basophils % 1.1 % (0-1.3); Hematocrit 41.2 % (36.0-45.0); Lymphocytes % 26.9 % (15.3-44.8); MPV 9.3 fL (7.6-11.3); RBC Red Blood Cell Count 4.88 M/uL (3.86-4.86)
[2020-12-21 08:33] LABS: ALT/SGPT 46 U/L (12-78); AST/SGOT 28 U/L (15-37); Albumin 3.7 g/dL (3.4-5.0); Alkaline Phosphatase 67 U/L (45-117); BUN Blood Urea Nitrogen 19 mg/dL (7-18); Bicarbonate 27 mmol/L (21-32); Bilirubin Direct < 0.1 mg/dL (0-0.2); Bilirubin Total 0.3 mg/dL (0.2-1.0); Glucose Level 162 mg/dL (74-106); Lipase 145 U/L (73-393); Potassium 4.1 mmol/L (3.5-5.1); Protein, Total 8.1 g/dL (6.4-8.2); Sodium Level 139 mmol/L (136-145)
--- NOTE | 2020-12-21 09:32 | RAD REPORT ---
EXAM DESCRIPTION: US - Abdomen Exam Limited - 12/21/2020 9:03 am CLINICAL HISTORY: ABD PAIN COMPARISON: Cholangiogram dated 12/18/2020 FINDINGS: Gallbladder is absent. No mass or abnormal fluid collection in the gallbladder fossa. No i ntrahepatic or extrahepatic biliary tree dilatation seen. Common bile duct is 5 mm with no duct stone s identifiable. IMPRESSION: Unremarkable post cholecystectomy right upper quadrant ultrasound.
--- NOTE | 2020-12-21 09:34 | ER ---
Nurse's Notes [facility] Name: Laura Khanna Age: 70 yrs Sex: Female : 1950 Arrival Date: 12/21/2020 Time: 06:56 Bed 19 Private MD: Kin Hernandez Diagnosis: Right upper quadrant pain Presentation: 12/21 07:29 Chief complaint: Patient states: Right upper quadrant pain x 1 wk. Tuesday had a CT done kg showing liver stones. Coronavirus screen: Client denies travel out of the [place] in the last 14 days. Ebola Screen: Patient negative for fever greater than or equal to 101.5 degrees Fahrenheit, and additional compatible Ebola Virus Disease symptoms Patient denies exposure to infectious person. Patient denies travel to an Ebola-affected area in the 21 days before illness onset. Initial Sepsis Screen: Does the patient meet any 2 criteria? No. Patient's initial sepsis screen is negative. Does the patient have a suspected source of infection? No. Patient's initial sepsis screen is negative. Risk Assessment: Do you want to hurt yourself or someone else? Patient reports no desire to harm self or others. Onset of symptoms was December 14, 2020. 07:29 Method Of Arrival: Ambulatory kg 07:29 Acuity: ZACARIAS 3 kg Historical: - Allergies: 07:37 Iodine; kg 07:37 Levaquin; kg 07:37 PENICILLINS; kg - Home Meds: 07:37 metformin 1,000 mg Oral tab 1 tab 2 times per day (Last Dose: 12/20/2020) [Active]; kg atorvastatin 80 mg Oral tab 1 tab once daily (Last Dose: 12/20/2020) [Active]; irbesartan 300 mg Oral tab 1 tab once daily (Last Dose: 12/20/2020) [Active]; omeprazole 40 mg Oral cpDR 1 cap once daily (Last Dose: 12/20/2020) [Active]; levothyroxine 75 mcg tab 1 tab once daily [Active]; amlodipine 5 mg tab [Active]; aspirin 81 mg Oral TbEC 1 tab once daily [Active]; 07:39 glipizide 5 mg Oral tr24 1 tab once daily [Active]; ibuprofen 800 mg Oral tab 1 tab 3 kg times per day [Active]; Tresiba FlexTouch U-100 56 units subcutaneous inpn twice a day for Type 2 Diabetes Mellitus [Active]; - Immunization history:: Adult Immunizations not up to date, Client reports having NOT received the Covid vaccine. Flu vaccine is not up to date. It has been more than one year since last vaccine. - Social history:: Patient/guardian denies using alcohol, street drugs, The patient lives with family, Smoking status: Patient denies any tobacco usage or history of. - Family history:: not pertinent. Screenin:20 Abuse screen: Denies threats or abuse. Nutritional screening: No deficits noted. kg Tuberculosis screening: No symptoms or risk factors identified. Fall Risk None identified. No fall in past 12 months (0 pts). No secondary diagnosis (0 pts). IV access (20 points). Ambulatory Aid- None/Bed Rest/Nurse Assist (0 pts). Gait- Normal/Bed Rest/Wheelchair (0 pts) Mental Status- Oriented to own ability (0 pts). Total [place] Fall Scale indicates No Risk (0-24 pts). Assessment: 08:17 General: Appears in no apparent distress. Behavior is calm, cooperative, appropriate kg for age, quiet. Pain: Complains of pain in right upper quadrant. Pain: Pain currently is 8 out of 10 on a pain scale. at worst was 10 out of 10 on a pain scale. level that patient reports is acceptable is 6 out of 10 on a pain scale. Quality of pain is described as aching, sharp, shooting, Pain began 1 week ago Is intermittent, episodic. Neuro: No deficits noted. Cardiovascular: No deficits noted. Cardiovascular: Heart tones S1 S2. Respiratory: No deficits noted. Respiratory: Breath sounds are clear bilaterally. GI: Bowel sounds present X 4 quads. Abd is soft Abdomen is tender to palpation in right upper quadrant Reports upper abdominal pain, nausea. : No deficits noted. EENT: No deficits noted. Derm: No deficits noted. Musculoskeletal: No deficits noted. Vital Signs: 07:29 BP 172 / 87; Pulse 75; Resp 20; Temp 98.2(O); Pulse Ox 96% on R/A; Weight 105.55 kg; kg Height 5 ft. 5 in. (165.10 cm); Pain 8/10; 08:30 BP 135 / 60; Pulse 78; Resp 20; Pulse Ox 94% on R/A; kg 09:30 BP 127 / 50; Pulse 70; Resp 18; Pulse Ox 94% on R/A; kg 10:02 BP 134 / 50; Pulse 72; Resp 18; Pulse Ox 93% on R/A; kg 07:29 Body Mass Index 38.72 (105.55 kg, 165.10 cm) kg ED Course: 06:56 Patient arrived in ED. es 06:56 Kin Hernandez MD is Private Physician. es 07:13 Marisela Martinez is Primary Nurse. kg 07:30 Stephanie Morales MD is Attending Physician. ma2 07:33 Triage completed. kg 08:00 Inserted saline lock: 20 gauge in right antecubital area, using aseptic technique. kg 08:20 Arm band placed on left wrist. kg 08:21 Patient has correct armband on for positive identification. Allergy band placed. Placed kg in gown. Bed in low position. Call light in reach. Side rails up X2. 09:03 US Abdomen Limited In Process Unspecified. EDMS 10:17 IV discontinued, intact, bleeding controlled, No redness/swelling at site. Pressure kg dressing applied. 10:17 No provider procedures requiring assistance completed. kg Administered Medications: 08:05 Drug: NS 0.9% 1000 ml Route: IV; Rate: 1 bolus; Site: right antecubital; kg 10:01 Follow up: IV Status: Completed infusion; IV Intake: 1000ml kg 10:01 Follow up: Response: No adverse reaction kg 08:05 Drug: Zofran (Ondansetron) 4 mg Route: IVP; Site: right antecubital; kg 08:53 Follow up: Response: No adverse reaction; Marked relief of symptoms kg 08:05 Drug: morphine 4 mg Route: IVP; Site: right antecubital; kg 08:53 Follow up: Response: No adverse reaction; Marked relief of symptoms; Pain is decreased kg Intake: 10:01 IV: 1000ml; Total: 1000ml. kg Outcome: 09:33 Discharge ordered by . ma2 10:18 Discharged to home ambulatory. kg 10:18 Condition: good 10:18 Discharge instructions given to patient, Instructed on discharge instructions, follow up and referral plans. Demonstrated understanding of instructions, follow-up care, medications, Prescriptions given X 3. 10:18 Patient left the ED. kg Signatures: [facility] Apolonia Bear Mohammad, MD MD ri2 Marisela Martinez kg
--- NOTE | 2020-12-21 09:34 | EDPHYS ---
Physician Documentation [facility] Name: Laura Khanna Age: 70 yrs Sex: Female : 1950 Arrival Date: 12/21/2020 Time: 06:56 Bed 19 Private MD: Kin Hernandez ED Physician Stephanie Morales HPI: 12/21 09:32 This 70 yrs old Female presents to ER via Ambulatory with complaints of ma2 Abdominal Pain. 09:32 Onset: The symptoms/episode began/occurred gradually, 2 month(s) ago. Associated signs ma2 and symptoms: Pertinent negatives: anorexia, chest pain, constipation. Severity of pain: At its worst the pain was mild in the emergency department the pain is unchanged. The patient has experienced similar episodes in the past. Historical: - Allergies: 07:37 Iodine; kg 07:37 Levaquin; kg 07:37 PENICILLINS; kg - Home Meds: 07:37 metformin 1,000 mg Oral tab 1 tab 2 times per day (Last Dose: 12/20/2020) [Active]; kg atorvastatin 80 mg Oral tab 1 tab once daily (Last Dose: 12/20/2020) [Active]; irbesartan 300 mg Oral tab 1 tab once daily (Last Dose: 12/20/2020) [Active]; omeprazole 40 mg Oral cpDR 1 cap once daily (Last Dose: 12/20/2020) [Active]; levothyroxine 75 mcg tab 1 tab once daily [Active]; amlodipine 5 mg tab [Active]; aspirin 81 mg Oral TbEC 1 tab once daily [Active]; 07:39 glipizide 5 mg Oral tr24 1 tab once daily [Active]; ibuprofen 800 mg Oral tab 1 tab 3 kg times per day [Active]; Tresiba FlexTouch U-100 56 units subcutaneous inpn twice a day for Type 2 Diabetes Mellitus [Active]; - Immunization history:: Adult Immunizations not up to date, Client reports having NOT received the Covid vaccine. Flu vaccine is not up to date. It has been more than one year since last vaccine. - Social history:: Patient/guardian denies using alcohol, street drugs, The patient lives with family, Smoking status: Patient denies any tobacco usage or history of. - Family history:: not pertinent. ROS: 09:32 Constitutional: Negative for fever, chills, and weight loss. ma2 09:32 All other systems are negative. Exam: 09:32 Constitutional: This is a well developed, well nourished patient who is awake, alert, ma2 and in no acute distress. Chest/axilla: Normal chest wall appearance and motion. Nontender with no deformity. No lesions are appreciated. Cardiovascular: Regular rate and rhythm with a normal S1 and S2. No gallops, murmurs, or rubs. Normal PMI, no JVD. No pulse deficits. Respiratory: Lungs have equal breath sounds bilaterally, clear to auscultation and percussion. No rales, rhonchi or wheezes noted. No increased work of breathing, no retractions or nasal flaring. Abdomen/GI: Soft, non-tender, with normal bowel sounds. No distension or tympany. No guarding or rebound. No evidence of tenderness throughout. Back: No spinal tenderness. No costovertebral tenderness. Full range of motion. Skin: Warm, dry with normal turgor. Normal color with no rashes, no lesions, and no evidence of cellulitis. MS/ Extremity: Pulses equal, no cyanosis. Neurovascular intact. Full, normal range of motion. Neuro: Awake and alert, GCS 15, oriented to person, place, time, and situation. Cranial nerves II-XII grossly intact. Motor strength 5/5 in all extremities. Sensory grossly intact. Cerebellar exam normal. Normal gait. Vital Signs: 07:29 BP 172 / 87; Pulse 75; Resp 20; Temp 98.2(O); Pulse Ox 96% on R/A; Weight 105.55 kg; kg Height 5 ft. 5 in. (165.10 cm); Pain 8/10; 08:30 BP 135 / 60; Pulse 78; Resp 20; Pulse Ox 94% on R/A; kg 09:30 BP 127 / 50; Pulse 70; Resp 18; Pulse Ox 94% on R/A; kg 10:02 BP 134 / 50; Pulse 72; Resp 18; Pulse Ox 93% on R/A; kg 07:29 Body Mass Index 38.72 (105.55 kg, 165.10 cm) kg MDM: 07:30 Patient medically screened. ma2 09:32 Differential diagnosis: cholecystitis, Cholelithiasis, gastritis, gastroesophageal ma2 reflux disease. Data reviewed: vital signs, nurses notes. Counseling: I had a detailed discussion with the patient and/or guardian regarding: the historical points, exam findings, and any diagnostic results supporting the discharge/admit diagnosis, the presence of at least one elevated blood pressure reading (>120/80) during this emergency department visit, the need for outpatient follow up. Other consultation: discussed w dr. lewis. 12/21 07:40 Order name: Basic Metabolic Panel; Complete Time: 09:02 [facility] 12/21 07:40 Order name: CBC with Diff; Complete Time: 08:31 [facility] 12/21 07:40 Order name: US Abdomen Limited [facility] 12/21 07:40 Order name: Hepatic Function; Complete Time: : [facility] 12/21 07:40 Order name: Lipase; Complete Time: 09:02 [facility] 12/21 07:40 Order name: IV Saline Lock; Complete Time: 08:17 [facility] 12/21 07:40 Order name: Labs collected and sent; Complete Time: 08:17 ma Administered Medications: 08:05 Drug: NS 0.9% 1000 ml Route: IV; Rate: 1 bolus; Site: right antecubital; kg 10:01 Follow up: IV Status: Completed infusion; IV Intake: 1000ml kg 10:01 Follow up: Response: No adverse reaction kg 08:05 Drug: Zofran (Ondansetron) 4 mg Route: IVP; Site: right antecubital; kg 08:53 Follow up: Response: No adverse reaction; Marked relief of symptoms kg 08:05 Drug: morphine 4 mg Route: IVP; Site: right antecubital; kg 08:53 Follow up: Response: No adverse reaction; Marked relief of symptoms; Pain is decreased kg Disposition: 12/21/20 09:33 Discharged to Home. Impression: Right upper quadrant pain. - Condition is Stable. - Discharge Instructions: Abdominal Pain, Adult. - Prescriptions for Zofran 4 mg Oral Tablet - take 1 tablet by ORAL route every 12 hours As needed; 20 tablet. Diclofenac Sodium 75 mg Oral Tablet Sustained Release - take 1 tablet by ORAL route 2 times per day; 30 tablet. Tramadol 50 mg Oral Tablet - take 1 tablet by ORAL route every 8 hours as needed; 12 tablet. - Medication Reconciliation Form, Thank You Letter, Antibiotic Education, Prescription Opioid Use form. - Follow up: Private Physician; When: Tomorrow; Reason: If symptoms return. Signatures: Dispatcher [employer] EDMS Stephanie Morales MD MD ma2 Marisela Martinez kg Corrections: (The following items were deleted from the chart) 10:18 09:33 12/21/2020 09:33 Discharged to Home. Impression: Right upper quadrant pain. kg Condition is Stable. Prescriptions for Zofran 4 mg Oral Tablet - take 1 tablet by ORAL route every 12 hours As needed; 20 tablet, Diclofenac Sodium 75 mg Oral Tablet Sustained Release - take 1 tablet by ORAL route 2 times per day; 30 tablet, Tramadol 50 mg Oral Tablet - take 1 tablet by ORAL route every 8 hours as needed; 12 tablet. and Forms are Medication Reconciliation Form, Thank You Letter, Antibiotic Education, Prescription Opioid Use. Follow up: Private Physician; When: Tomorrow; Reason: If symptoms return. ma2
[2020-12-21 10:25] VITALS: TEMP 98.2
[2020-12-21 10:30] VITALS: BP 134/50; O2SAT 93
== END 2020-12-21 10:18 | disposition home or self-care (01) ==
LOC: ER 06:52
DX: R10.11 Right upper quadrant pain (principal); E11.9 Type 2 diabetes mellitus without complications; Z79.4 Long term (current) use of insulin; Z79.82 Long term (current) use of aspirin; Z88.0 Allergy status to penicillin; Z88.1 Allergy status to other antibiotic agents; Z91.048 Other nonmedicinal substance allergy status
CPT/HCPCS: 96361; 85025; 80048; 36415; 80076; 83690; 76705; 96375; 96374; 99284; J7030; J2405

== ENCOUNTER 2021-08-19 09:57 | Emergency (ER) | payer OTHER ==
--- OUTSIDE RECORDS SUMMARY | 2021-08-19 10:01 | XMS REPORT | Continuity of Care Document ---
:1950 Author Organization [facility] t Address [address] [place] [address] Dr. Gibson. [address] [place] [address] Care Team Providers Name Role Phone Naldo DELEON Attending Clinician Unavailable Geronimo GUERRERO Attending Clinician Unavailable Naldo Deleon MD Attending Clinician Doctor Unassigned, Name Attending Clinician Unavailable Only, Test Attending Clinician Unavailable Ige-Odunuga_J_AH Attending Clinician Unavailable Ruchi ELLINGTON Attending Clinician Unavailable ISABELLE Attending Clinician Unavailable Naldo DELEON Admitting Clinician Unavailable Geronimo GUERRERO Admitting Clinician Unavailable Naldo Deleon MD Admitting Clinician Ige-Odflorencia_J_AH Admitting Clinician Unavailable Ruchi ELLINGTON Admitting Clinician Unavailable ISABELLE Admitting Clinician Unavailable Payers Payer Name Policy Type Policy Number Effective Date Expiration Date [place] [employer] [id number] 2019spring 00:00:00 [facility] [id number] 2018 00:00:00 [facility] [id number] [employer] (MEDICARE REPLACEMENT/ADVANT AGE - HMO) MEDICARE B-[place]: [id number] 2007 [place] 00:00:00 Problems This patient has no known problems. Allergies, Adverse Reactions, Alerts Allergy Allergy Status Severity Reaction(s) Onset Inactive Treating Comm ents Source Name Type Date Date Clinician Iodine Propensi Active Anaphylaxis 2019-08 Increased Univers And ty to 1-19 fluid ity of Iodide adverse 00:00: retention [place] Containi reaction 00 Medica l ng s Branch Products Levoflox Propensi Active Anaphylaxis 2019-08 U nivers acin ty to 08-26 ity of adverse 00:00: [place] reaction 00 Medical s Branch Penicill Propensi Active Shortness of 2019-08 Hives Univers ins ty to Breath 08-26 ity of adverse 00:00: [place] reaction 00 Medical s Branch IODINE DRUG Active Anaphylaxis 2019-08 Unive rs INGREDI 08-26 ity of 00:00: [place] 00 Medical Branch IODINE Drug Active High Anaphylaxis 2019-08 Unive rs AND Class 08-26 ity of IODIDE 00:00: [place] CONTAINI 00 Medical NG Branch PRODUCTS LEVOFLOX DRUG Active High Anaphylaxis 2019-08 Uni vers ACIN INGREDI 08-26 ity of 00:00: [place] 00 Medical Branch PENICILL Drug Active SOB 2019-08 Univers INS Class 08-26 ity of 00:00: [place] 00 Medical Branch IODINE Allergy Active High Anaphylaxis 2018-0 [facility] AND 02-05 IODIDE 00:00: CONTAINI 00 NG PRODUCTS LEVOFLOX Allergy Active High Anaphylaxis 2019-0 SL EH ACIN 7 00:00: 00 PENICILL Allergy Active High Anaphylaxis 2018-0 SL E[facility] INS 02-05 00:00: 00 NO KNOWN Drug Active Univers ALLERGIE Class ity of S [facility] Social History Social Habit Start Date Stop Date Quantity Comments Source Sex Assigned At [facility] Branch Exposure to Not sure [facility] SARS-CoV-2 (event) [facility] Tobacco use and 2020-06-27 2020-06-27 Never used [facility] exposure 00:00:00 00:00:00 Medical Branch Smoking Status Start Date Stop Date Source Never smoker [facility] Medications Ordered Filled Start Stop Current Ordering Indication Dosage Frequency Signature Comments Components Source Medication Medication Date Date Medication? Clinician (SIG) Name Name amLODIPine 2019-08 Yes 10mg Take 10 mg U nivers 10 mg -23 by mouth ity of tablet 14:22: every [place] 13 morning. Medical Branch aspirin 81 2019-08 Yes 81mg Take 81 mg U nivers mg chewable 23 by mouth ity of tablet 14:22: daily. [place] [facility] atorvastati 2019-08 Yes 80mg Take 80 mg Univers n 80 mg 23 by mouth ity of tablet 14:22: daily. [place] [address] Medical Branch levothyroxi 2019- Yes 75ug Take 75 Uni vers ne 100 mcg 1-23 mcg by ity of tablet 14:22: mouth. [place] [address] Medical Branch omeprazole 2019- Yes 40mg Take 40 mg U nivers 40 mg 1-23 by mouth ity of capsule 14:22: at [place] [address] bedtime. Medical Branch irbesartan 2019- Yes 300mg Take 300 Un jeffry 300 mg 1-23 mg by ity of tablet 14:22: mouth at [place] [address] bedtime. Medical Branch metFORMIN 2019- Yes 1000mg Take 1,000 Univers 1,000 mg 24 1-23 mg by ity of hr tablet 14:22: mouth [place] [address] daily with Medical breakfast. Branch insulin 2019- Yes 56U inject 56 Unive rs detemir 1-23 Units ity of U-100 100 14:22: under the [place] unit/mL 13 skin. Medical injection Branch amLODIPine 2019- Yes 10mg Take 10 mg U nivers 10 mg 1-23 by mouth ity of tablet 14:22: every [place] [address] morning. Medical Branch aspirin 81 2019- Yes 81mg Take 81 mg U nivers mg chewable 1-23 by mouth ity of tablet 14:22: daily. [place] [address] Medical Branch atorvastati 2019- Yes 80mg Take 80 mg Univers n 80 mg 1-23 by mouth ity of tablet 14:22: daily. [place] [address] Medical Branch levothyroxi 2019- Yes 75ug Take 75 Uni vers ne 100 mcg 1-23 mcg by ity of tablet 14:22: mouth. [place] [address] Medical Branch omeprazole 2019- Yes 40mg Take 40 mg U nivers 40 mg 1-23 by mouth ity of capsule 14:22: at [place] [address] bedtime. Medical Branch irbesartan 2019- Yes 300mg Take 300 Un jeffry 300 mg 1-23 mg by ity of tablet 14:22: mouth at [place] [address] bedtime. Medical Branch metFORMIN 2019- Yes 1000mg Take 1,000 Univers 1,000 mg 24 1-23 mg by ity of hr tablet 14:22: mouth [place] [address] daily with Medical breakfast. Branch insulin 2019- Yes 56U inject 56 Unive rs detemir 1-23 Units ity of U-100 100 14:22: [place] as unit/mL 13 skin. Medical injection Branch lactated 2019-08 Yes 1000mL at 75 Univer s ringers IV 1-23 mL/hr, ity of infusion 14:00: 1,000 [place], [place] 1[place]000 [place] 00 IV Medical Infusion, Branch CONTINUOUS , Starting [facility] 06/30/20 at 0800, Until Discontinu ed, Routine, PACU ondansetron 2019-08 Yes 4mg 4 mg, Slow Univers (ZOFRAN 08-30 IV Push, ity of (PF)) 13:57: PRN, 1 [place] injection 4 11 dose, Medical mg Starting Branch [facility] 06/30/20 at 0757, Until Discontinu ed, Routine, Nausea and Vomiting (N/V), PACU triamcinolo 2019-08 Yes PRN, [facility] [place] [facility] s ne 08-30 Starting ity of acetonide 13:35: [facility] (KENALOG) 06/30/20 Medica l injection at 0735, Branch Until Discontinu ed, Routine, Intra-op iohexoL 2019-08 Yes PRN, Univers (OMNIPAQUE 08-30 Starting ity o f 350 BULK-50 13:35: [facility] mL) 06/30/20 Medical injection at 0735, Branch Until Discontinu ed, Routine, Intra-op bupivacaine 2019-08 Yes PRN, [facility] [place] [facility] s (preserv 08-30 Starting ity of free) 13:35: [facility] (SENSORCAIN 06/30/20 Medi mookie E MPF) 0.25 at 0735, Bran ch % (2.5 Until mg/mL) Discontinu injection ed, Routine, Intra-op lidocaine 2019-08 Yes PRN, Univers 1% 08-30 Starting ity of (XYLOCAINE) 13:34: [facility] 10 mg/mL (1 06/30/20 Medi mookie %) at 0734, Branch injection Until Discontinu ed, Routine, Intra-op lactated 2019-08 2020- No 1000mL at 42 Unive rs ringers IV - 11-23 mL/hr, ity of infusion 13:00: 13:11 1,000 mL, [place] 1,000 mL 00 :00 IV Medical Infusion, Branch ONCE, 1 dose, [facility] 06/30/20 at 0700, Routine, DSU Pre-op irbesartan 2019-08 Yes 300mg Take 300 Un jeffry 300 mg 1-19 mg by ity of tablet 21:00: mouth at [place] [address] bedtime. Medical Branch metFORMIN 2019-08 Yes 1000mg Take 1,000 Univers 1,000 mg 24 1-19 mg by ity of hr tablet 21:00: mouth [place] [address] daily with Medical breakfast. Branch insulin 2019-08 Yes 56U inject 56 Unive rs detemir 1-19 Units ity of U-100 100 21:00: under [place] as unit/mL 24 skin. Medical injection Branch aspirin 81 2019-08 Yes 81mg Take 81 mg U nivers mg chewable 1-19 by mouth ity of tablet 21:00: daily. [place] [address] Medical Branch atorvastati 2019-08 Yes 80mg Take 80 mg Univers n 80 mg 1-19 by mouth ity of tablet 21:00: daily. [place] [address] Medical Branch levothyroxi 2019-08 Yes 75ug Take 75 Uni vers ne 100 mcg 1-19 mcg by ity of tablet 21:00: mouth. [place] [address] Medical Branch omeprazole 2019-08 Yes 40mg Take 40 mg U nivers 40 mg 1-19 by mouth ity of capsule 21:00: at [place] [address] bedtime. Medical Branch amLODIPine 2019-08 Yes 10mg Take 10 mg U nivers 10 mg 1-19 by mouth ity of tablet 20:54: every [place] [address] morning. Medical Branch Vital Signs Vital Name Observation Time Observation Value Comments Source HEIGHT 2020-12-25 07:38:00 165.1 cm WEIGHT 2020-12-25 07:38:00 104.237 kg WEIGHT 2020-12-23 12:01:00 105.688 kg HEIGHT 2020-12-23 12:01:00 165.1 cm HEIGHT 2020-12-25 07:38:00 165.1 cm WEIGHT 2020-12-25 07:38:00 104.237 kg WEIGHT 2020-12-23 12:01:00 105.688 kg HEIGHT 2020-12-23 12:01:00 165.1 cm Systolic blood 2020-06-30 14:00:00 123 mm[Hg] Univer sity of pressure [facility] Diastolic blood 2020-06-30 14:00:00 67 mm[Hg] Unive rsity of pressure [facility] Heart rate 2020-06-30 14:00:00 71 /min [facility] Body temperature 2020-06-30 14:00:00 36.67 Carmen Univ ersity of [place] [facility] Branch Respiratory rate 2020-06-30 14:00:00 18 /min Univ ersity of [place] [facility] Oxygen saturation in 2020-06-30 14:00:00 95 /min University of Arterial blood by [facility] Pulse oximetry Branch Body height 2020-06-27 18:02:00 165.1 cm Universi ty of [place] [facility] [place] Body weight 2020-06-27 18:02:00 102.1 kg Universi ty of [place] [facility] BMI 2020-06-27 18:02:00 37.46 kg/m2 Universi ty of [place] [facility] Branch Systolic blood 2020-06-30 14:00:00 123 mm[Hg] Univer sity of pressure [facility] Branch Diastolic blood 2020-06-30 14:00:00 67 mm[Hg] Unive rsity of pressure [facility] Heart rate 2020-06-30 14:00:00 71 /min Universi ty of [facility] Body temperature 2020-06-30 14:00:00 36.67 Carmen Univ ersity of [facility] Respiratory rate 2020-06-30 14:00:00 18 /min Univ ersity of [place] [facility] Branch Oxygen saturation in 2020-06-30 14:00:00 95 /min University of Arterial blood by [facility] Pulse oximetry Branch Body height 2020-06-27 18:02:00 165.1 cm Universi ty of [place] [facility] Body weight 2020-06-27 18:02:00 102.1 kg Universi ty of [place] [facility] BMI 2020-06-27 18:02:00 37.46 kg/m2 Universi ty of [place] [facility] Branch Procedures Procedure Date / Time Performed Performing Clinician Sourc e CBC WITH DIFF 2020-06-30 13:02:00 Chema Deleon [facility] POCT GLUCOSE(AGE 2020-06-30 12:55:00 [place] [facility] >30DAYS) Medical Branch DAY SURGERY - ADC 2020-06-30 06:01:00 Doctor Unassigned, No [facility] [place] [facility] Clinic Encounters Start End Encounter Admission Attending Care Care Encounter Source Date/Time Date/Time Type Type Clinicians Facility Department ID 2021-06-06 Outpatient R JENNIFER DELEON DARLIN [id number] Univers 06:09:27 CHEMA [facility] 2021-05-16 Outpatient ANNABEL YBRNE Surgery [id number] [facility] 21:10:52 PATRICIO 2020-12-23 2020-12-23 Outpatient R [facility] [id number] Univers 13:00:00 13:00:00 ity [facility] 2020-12-23 2020-12-23 Outpatient R [facility] [id number] Univers 11:20:00 11:20:00 [id number] ity [facility] 2020-12-23 2020-12-23 Outpatient R [facility] [id number] Univers 11:20:00 11:20:00 [facility] 2020-12-23 2020-12-23 Outpatient SLE SLE [id number] SLE 00:00:00 00:00:00 2020-06-30 2020-06-30 Outpatient R [facility] DARLIN [id number] Univers 06:46:00 08:16:00 General acute hospital 2020-06-30 2020-06-30 [facility] [id number] 06:46:00 08:16:00 Encounter Chema May 350.1.13.10 [place] 4.2.7.2.686 Surgical [id number] [place] [address] 2020-06-30 2020-06-30 [facility] [id number] Univers 06:46:00 08:16:00 Encounter Chema May 350.1.13.10 ity [facility] 4.2.7.2.686 [place] Surgical [id number] Med [address] 2020-06-30 2020-06-30 Orders Doctor WILKINS 1.2.840.114 [id number] 00:00:00 00:00:00 Only Unassigned, PETEY 350.1.13.10 [place] [facility] 4.2.7.2.686 [id number] 2020-06-30 2020-06-30 Orders Doctor WILKINS 1.2.840.114 [id number] Univers 00:00:00 00:00:00 Only Unassigned, PETEY 350.1.13.10 [facility] 4.2.7.2.686 [place] [id number] [facility] 009 [place] 2020-06-27 2020-06-27 Outpatient R [facility] [id number] Univers 14:45:00 14:45:00 [id number] ity [facility] 2020-06-27 2020-06-27 Out[facility] [id number] Univers 14:45:00 14:45:00 [facility] 2020-06-27 2020-06-27 Laboratory Only, [facility] Test [facility] 1.2.840. 114 [id number] Univers 07:50:58 08:05:58 Only Chema Deleon S Y[place] 350.1.13.1 0 ity of [place] 4.2.7.2.686 [place] [id number] [address] 2020-06-27 2020-06-27 Laboratory Only, [facility] 1.2.840.114 [id number] 07:50:58 08:05:58 Only Test [place] 350.1.13.10 [place] 4.2.7.2.686 [place] [id number] [facility] 2020-06-24 2020-06-24 Outpatient Tushar DELEON [facility] [id number] Univers 09:15:00 09:15:00 CHEMA [facility] 2019-11-06 2019-11-06 Outpatient Ige-Odunuga [facility] [id number] 11:38:00 11:38:00 _J_AH [id number] Family Practic e 2019-11-06 2019-11-06 Outpatient Ige-Odunuga [facility] [id number] [facility] 11:38:00 11:38:00 _J_AH [id number] Family Practic e 2016-06-29 2016-06-29 Outpatient JAISON_Tulio [facility] 2019 [place] 03:16:00 03:16:00 [id number] [facility] Results Test Description Test Time Test Comments Results Result Comments Source POCT-GLUCOSE METER 2020-12-25 11:22:00 Test Item Value Reference Range Interpretation Comme nts POC-GLUCOSE METER ([facility]) 188 mg/dL 70-110 H : Notified RN/MD: TESTED AT [facility] (test code = 1538) [address] [facility], [address]: Assembler Arranger/Techni lexie ID = [id number] for AUDRA MARKS [place], [id number] 10:54:00Reason for exam:->calculus of bile duct [facility] : 1950 Sex: FFluoroscopic unit utilized for a procedure performed in the OR. No interpretation was requested. Refer to the operative report for findings. Refer to PACS for patient radiation dose information.POCT-GLUCOSE [id number] 08:13:00 Test Item Value Reference Range Interpretation Comments POC-GLUCOSE METER 197 mg/dL 70-110 H : TESTED A T [facility] 6720 (BEAKER) (test code = KRISTIN Finley [facility], 1538) [address]: Assembler Arranger/Techni lexie ID = [id number] for Mago gogoTamiko CBC WITH [id number] 13:14:00 Test Item Value Reference Range Interpretation Comments WBC (test code = See_Comment [Automated message] 6690-2) The system [employer] generated this result transmitted ref erence range: 4.30 - 1 1.10 10*3/?L. The re ference range was not u sed to interpret this result as normal/abnor mal. RBC (test code = See_Comment [Automated message] 789-8) The system [employer] generated this result transmitted ref erence range: 3.93 - 5 .25 10*6/?L. The re ference range was not u sed to interpret this result as normal/abnor mal. HGB (test code = 13.6 g/dL 11.6-15 718-7) HCT (test code = 42.7 % 35.7-45.2 4544-3) MCV (test code = 87.3 fL 80.6-95.5 787-2) MCH (test code = 27.8 pg 25.9-32.8 785-6) MCHC (test code = 31.9 g/dL 31.6-35.1 786-4) RDW-SD (test code 45.6 fL 39-49.9 = 39971-3) RDW-CV (test code 14.3 % 12-15.5 = 788-0) PLT (test code = See_Comment [Automated message] 777-3) The system Roovynic h generated this result transmitted ref erence range: 166 - 35 8 10*3/?L. The re ference range was not u sed to interpret this result as normal/abnor mal. MPV (test code = 10.6 fL 9.5-12.9 89075-6) NRBC/100 WBC (test See_Comment [Automat ed message] code = 5330597745) The syste m which generated this result transmitted ref erence range: 0.0 - 10 .0 /100 WBCs. The refer ence range was not u sed to interpret this result as normal/abnor mal. NRBC x10^3 (test <0.01 See_Comment [Automated message] code = 3908132744) The syste m which generated this result transmitted ref erence range: 10*3/?L. The reference range was not used to interpr et this result as normal/abnormal . GRAN MAT (NEUT) % 60.2 % (test code = 770-8) IMM GRAN % (test 0.40 % code = 7867149924) LYMPH % (test code 28.3 % = 736-9) MONO % (test code 7.3 % = 5905-5) EOS % (test code = 2.8 % 713-8) BASO % (test code 1.0 % = 706-2) GRAN MAT 4.06 10*3/uL 1.88-7.09 x10^3(ANC) (test code = 3667106589) IMM GRAN x10^3 0.03 10*3/uL 0-0.06 (test code = 6186163209) LYMPH x10^3 (test 1.91 10*3/uL 1.32-3.29 code = 731-0) MONO x10^3 (test 0.49 10*3/uL 0.33-0.92 code = 742-7) EOS x10^3 (test 0.19 10*3/uL 0.03-0.39 code = 711-2) BASO x10^3 (test 0.07 10*3/uL 0.01-0.07 code = 704-7) [facility] [id number] 12:55:00 Test Item Value Reference Range Interpretation Comments POCT Glu (age>30days) (test code = 194 mg/dL 70-110 A 3342) Lab Interpretation (test code = Abnormal 88816-4) [facility], [id number] 22:39:00INTRA OP IMAGINGReason for exam:->CBD STONESFINAL REPORT Examination: ERCP 4 fluoroscopic spot views were obtained during the procedure by the ordering service. Images are nondiagnostic as no radiologist was present at the time of imaging. Fluoroscopic time was 122.2 seconds. Please see the procedure report for details. Signed: Silas Camp Verified Date/Time: 02/07/2019 22:39:15 Reading Location: [address] Reading Room POCT- GLUCOSE [id number] 18:25:00 Test Item Value Reference Range Interpretation Comments POC-GLUCOSE METER 200 mg/dL 70-110 H TESTED AT [place] [address] ([facility]) (test code = KRISTIN Finley [facility] 1538) [address] POCT-GLUCOSE [id number] 15:42:00 Test Item Value Reference Range Interpretation Comments POC-GLUCOSE METER 164 mg/dL 70-110 H TESTED AT [place] [address] ([facility]) (test code = WILLIEOR Tushar [facility] 1538) [address] POCT-GLUCOSE [id number] 12:01:00 Test Item Value Reference Range Interpretation Comments POC-GLUCOSE METER 189 mg/dL 70-110 H TESTED AT [place] [address] ([facility]) (test code = KRISTIN [place]AMORAN[place] 1538) [address] POCT-GLUCOSE [id number] 05:00:00 Test Item Value Reference Range Interpretation Comments POC-GLUCOSE METER 196 mg/dL 70-110 H TESTED AT [place] [address] ([facility]) (test code = KRISTIN [place] 1538) [address] POCT-GLUCOSE [id number] 00:28:00 Test Item Value Reference Range Interpretation Comments POC-GLUCOSE METER 218 mg/dL 70-110 H TESTED AT [place] [address] ([facility]) (test code = KRISTIN Finley [facility] 1538) [address] POCT-GLUCOSE [id number] 17:58:00 Test Item Value Reference Range Interpretation Comments POC-GLUCOSE METER 155 mg/dL 70-110 H TESTED AT [place] [address] ([facility]) (test code = KRISTIN Finley [facility] 1538) [address] MR, ABDOMEN, [id number] 12:55:00FINAL REPORT TECHNIQUE: MRI of the abdomen [...] infiltration of the liver. Signed: Vasquez Dowling Verified Date/Time: 02/06/2019 12:55:19 Reading Location: [facility] C013Y CT Body Reading Room POCT-GLUCOSE [id number] 11:33:00 Test Item Value Reference Range Interpretation Comments POC-GLUCOSE METER 190 mg/dL 70-110 H TESTED AT [facility] 6720 (BEAKER) (test code = KRISTIN Tushar [facility] 1538) [address] POCT-GLUCOSE [id number] 06:13:00 Test Item Value Reference Range Interpretation Comments POC-GLUCOSE METER 210 mg/dL 70-110 H TESTED AT [facility] 6720 [facility] (test code = KRISTIN Finley [facility] 1538) [address] PROTHROMBIN [id number] 03:06:00 Test Item Value Reference Range Interpretation [...] INR is2.5-3.5 for patients wiht mechanical heart valves.[id number] 03:06:00 Test Item Value Reference Range Interpretation Comments MAGNESIUM (BEAKER) 1.3 mg/dL 1.6-2.6 L Specimen slightly (test code = 627) hemolyzed BASIC METABOLIC [id number] 03:06:00 Test Item Value Reference Range Interpretation [...] DIALYSIS PATIEN TS. Specimen slightly ictericHEPATIC FUNCTION [id number] 03:06:00 Test Item Value Reference Range Interpretation [...] Specimen slightly ictericCBC W/PLT COUNT & AUTO [id number] 02:50:00 Test Item Value Reference Range Interpretation [...] % 0-1 PERCENT (BEAKER) (test code = 2801) POCT-GLUCOSE [id number] 23:33:00 Test Item Value Reference Range Interpretation Comments POC-GLUCOSE METER 241 mg/dL 70-110 H TESTED AT [facility] 6738 (LAURI) (test code = KRISTIN [place] 1538) [address]
[2021-08-19] MEDS ORDERED: ONDANSETRON 4 MG/2 ML VIAL ONE (10:48)
[2021-08-19] MEDS ORDERED: NA CHLORIDE 0.9% 1,000 ML ONE (10:48)
[2021-08-19 10:52] LABS: Absolute Lymphocytes (CBC) 1.2 K/uL (0.7-4.9); Hematocrit 38.9 % (36.0-45.0); Lymphocytes % 26.4 % (15.3-44.8); RBC Red Blood Cell Count 4.71 M/uL (3.86-4.86)
[2021-08-19 11:18] LABS: Potassium 4.2 mmol/L (3.5-5.1)
--- NOTE | 2021-08-19 11:53 | RAD REPORT ---
EXAM DESCRIPTION: RAD - Chest Single View - 08/19/2021 11:26 am CLINICAL HISTORY: COUGH COMPARISON: April 2020 TECHNIQUE: AP portable chest image was obtained 08/19/2021 11:26 am . FINDINGS: No focal lung parenchymal process. Interstitial pattern matches comparison. Heart and vasc ulature are normal. No measurable pleural effusion and no pneumothorax. No acute bony abnormality see n. No acute aortic findings suspected. IMPRESSION: No acute cardiopulmonary process. No significant change from comparison study.
[2021-08-19 12:32] LABS: SARS-COV-2 RT PCR POSITIVE (NEGATIVE)
--- NOTE | 2021-08-19 13:15 | ER ---
Nurse's Notes [facility] Name: Laura Khanna Age: 71 yrs Sex: Female : 1950 Arrival Date: 08/19/2021 Time: 10:02 Bed 25 Private MD: Kin Hernandez Diagnosis: SARS-associated coronavirus as the cause of diseases classified elsewhere;Dehydration;Muscle weakness (generalized) Presentation: 08/19 10:12 Chief complaint: Patient states: Cough, nausea, chest tightness x 2 days "But I've been jl7 coughing a lot and I just don't feel good.". Coronavirus screen: cough unrelated to allergies, fatigue, nausea, Client presents with at least one sign or symptom that may indicate coronavirus-19. Standard/surgical mask placed on the client. Provider contacted for isolation considerations. Ebola Screen: No symptoms or risks identified at this time. Initial Sepsis Screen: Does the patient meet any 2 criteria? No. Patient's initial sepsis screen is negative. Does the patient have a suspected source of infection? No. Patient's initial sepsis screen is negative. Risk Assessment: Do you want to hurt yourself or someone else? Patient reports no desire to harm self or others. Onset of symptoms was August 17, 2021. 10:12 Method Of Arrival: Wheelchair jl7 10:12 Acuity: ZACARIAS 2 jl7 Triage Assessment: 10:14 General: Appears in no apparent distress. uncomfortable, Behavior is calm, cooperative, jl7 appropriate for age. Pain: Complains of pain in anterior aspect of right upper chest and anterior aspect of left upper chest Pain does not radiate. Pain currently is 5 out of 10 on a pain scale. Is continuous. Neuro: Level of Consciousness is awake, alert, obeys commands, Oriented to person, place, time, situation. Cardiovascular: Patient's skin is warm and dry. Respiratory: Airway is patent Respiratory effort is even, unlabored, Respiratory pattern is regular, symmetrical. GI: Reports nausea. Derm: Skin is pink, warm \\T\\ dry. Historical: - Allergies: 10:14 Iodine; jl7 10:14 Levaquin; jl7 10:14 PENICILLINS; jl7 - PMHx: 10:14 Diabetes - IDDM; Diabetes - NIDDM; Hypertension; Hypothyroidism; Pancreatitis; jl7 - PSHx: 10:14 Coronary artery bypass graft; cardiac stent; Cholecystectomy; jl7 - Immunization history:: Client reports having NOT received the Covid vaccine. - Social history:: Smoking status: Patient denies any tobacco usage or history of. - Family history:: not pertinent. - Hospitalizations: : No recent hospitalization is reported. Screenin:22 Abuse screen: Denies threats or abuse. Denies injuries from another. Nutritional ic1 screening: No deficits noted. Tuberculosis screening: No symptoms or risk factors identified. Fall Risk None identified. Exposure risk/Travel Screening: None identified. Assessment: 10:22 General: Appears in no apparent distress. uncomfortable, Behavior is calm, cooperative. ic1 Pain: Denies pain. Neuro: No deficits noted. Cardiovascular: Chest pain is described as mild, is aggravated by Pt states "I think its d/t my congestion". Respiratory: No deficits noted. GI: Parent/caregiver reports the patient having nausea, pain. : No deficits noted. EENT: No deficits noted. Derm: No deficits noted. Musculoskeletal: No deficits noted. 10:25 GI: Reports lower abdominal pain, upper abdominal pain, cramping, diarrhea, nausea. ic1 13:17 Reassessment: Pt also c/o bruising and tenderness noted to her L anterior forearm. ED ic1 physician notified. Instructed to monitor for further condition. Pt on cont monitoring. VSS. Vital Signs: 10:12 BP 156 / 73; Pulse 94; Resp 17; Temp 97.3; Pulse Ox 100% on R/A; Weight 100.7 kg (R); jl7 Height 5 ft. 5 in. (165.10 cm); Pain 5/10; 10:22 BP 134 / 66; Pulse 73; Resp 18; Pulse Ox 100% on R/A; ic1 12:13 BP 149 / 61; Pulse 71; Resp 16; Pulse Ox 97% on R/A; ic1 13:19 BP 137 / 63; Pulse 76; Resp 18; Pulse Ox 99% on R/A; ic1 10:12 Body Mass Index 36.94 (100.70 kg, 165.10 cm) jl7 [place] Coma Score: 10:22 Eye Response: spontaneous(4). Verbal Response: oriented(5). Motor Response: obeys ic1 commands(6). Total: 15. ED Course: 10:02 Patient arrived in ED. am2 10:02 Kin Hernandez MD is Private Physician. am2 10:14 Triage completed. jl7 10:14 Arm band placed on right wrist. jl7 10:22 Patient has correct armband on for positive identification. Bed in low position. Call ic1 light in reach. Side rails up X2. 10:26 Faustino Roberts MD is Attending Physician. rn 10:36 Warm blanket given. panel monitor on. Pulse ox on. NIBP on. mh5 10:37 EKG done, by ED staff, reviewed by Faustino Roberts MD COVID swab sent to lab. mh5 10:45 CBC with Automated Diff Sent. ic1 10:45 COVID-19/FLU A+B (Document "Date of Onset" if Symptomatic) Sent. ic1 10:45 Procalcitonin Sent. ic1 10:45 Basic Metabolic Panel Sent. ic1 10:45 CBC with Diff Sent. ic1 10:46 Inserted saline lock: 20 gauge in left antecubital area, using aseptic technique. Blood ic1 collected. 11:26 XRAY Chest (1 view) In Process Unspecified. EDMS 13:33 IV discontinued, intact, bleeding controlled, No redness/swelling at site. Pressure ic1 dressing applied. Administered Medications: 10:50 Drug: NS 0.9% 1000 ml Route: IV; Rate: 1000 ml; Site: left forearm; Delivery: Primary ic1 tubing; 13:03 Follow up: IV Status: Completed infusion; IV Intake: 1000ml ic1 10:50 Drug: Zofran (Ondansetron) 4 mg Route: IVP; Site: left forearm; ic1 Intake: 13:03 IV: 1000ml; Total: 1000ml. ic1 Outcome: 13:14 Discharge ordered by . rn 13:28 Discharged to home ambulatory, with family. ic1 13:28 Condition: stable 13:28 Discharge instructions given to patient, family, Instructed on discharge instructions, follow up and referral plans. Demonstrated understanding of instructions, follow-up care, medications, Prescriptions given X 2. 13:43 Patient left the ED. ic1 Signatures: Dispatcher [employer] EDMS Faustino Roberts MD MD rn Martinez, Maria 5 Jayden Carter RN RN 7 Johanna Alatorre 2 Creggett, Dena, RN RN ic1 Corrections: (The following items were deleted from the chart) GI: No deficits noted. Patient currently denies ic1 ic1 GI: Parent/caregiver reports the patient having ic1 ic1
--- NOTE | 2021-08-19 13:15 | EDPHYS ---
Physician Documentation [facility] Name: Laura Khanna Age: 71 yrs Sex: Female : 1950 Arrival Date: 08/19/2021 Time: 10:02 Bed 25 Private MD: Kin Hernandez ED Physician Faustino Roberts HPI: 08/19 11:03 This 71 yrs old Female presents to ER via Wheelchair with complaints of Cough, Nausea, rn Chest Tightness, Near Syncope. 11:03 The patient or guardian reports cough, flu symptoms. Onset: The symptoms/episode rn began/occurred 1 week(s) ago. Severity of symptoms: At their worst the symptoms were moderate, in the emergency department the symptoms are unchanged. Modifying factors: The symptoms are alleviated by nothing, the symptoms are aggravated by nothing. Associated signs and symptoms: Pertinent positives: diarrhea, fever, rhinorrhea, sore throat, Pertinent negatives: vomiting. The patient has not experienced similar symptoms in the past. The patient has not recently seen a physician. Patient reports approximately 1 week of feeling ill. Reports subjective fevers/chills/myalgias/weakness. Reports a week prior to her symptoms starting multiple family members diagnosed with COVID and similar symptoms. Denies shortness of breath. Reports myalgias and just generalized fatigue.. Historical: - Allergies: 10:14 Iodine; jl7 10:14 Levaquin; jl7 10:14 PENICILLINS; jl7 - PMHx: 10:14 Diabetes - IDDM; Diabetes - NIDDM; Hypertension; Hypothyroidism; Pancreatitis; jl7 - PSHx: 10:14 Coronary artery bypass graft; cardiac stent; Cholecystectomy; jl7 - Immunization history:: Client reports having NOT received the Covid vaccine. - Social history:: Smoking status: Patient denies any tobacco usage or history of. - Family history:: not pertinent. - Hospitalizations: : No recent hospitalization is reported. ROS: 11:03 Constitutional: Positive for subjective fever and chills Eyes: Negative for injury, rn pain, redness, and discharge, ENT: Positive for congestion Cardiovascular: Negative for chest pain, palpitations, and edema, Respiratory: Positive for cough, negative for shortness of breath Abdomen/GI: Negative for abdominal pain, vomiting Back: Negative for injury and pain, : Negative for injury, bleeding, discharge, and swelling, MS/Extremity: Negative for injury and deformity, Skin: Negative for injury, rash, and discoloration, Neuro: Positive for generalized weakness Exam: 11:03 Constitutional: This is a well developed, well nourished patient who is awake, alert, rn and in no acute distress. Head/Face: Normocephalic, atraumatic. Eyes: Periorbital areas with no swelling, redness, or edema. Cardiovascular: Regular rate and rhythm. No pulse deficits. Respiratory: No increased work of breathing, no retractions or nasal flaring. Abdomen/GI: Soft, non-tender Skin: Warm, dry MS/ Extremity: Pulses equal, no cyanosis. Neurovascular intact. Full, normal range of motion. Equal circumference. Neuro: Awake and alert, GCS 15, oriented to person, place, time, and situation. Cranial nerves II-XII grossly intact. Motor strength 5/5 in all extremities. Sensory grossly intact. Vital Signs: 10:12 BP 156 / 73; Pulse 94; Resp 17; Temp 97.3; Pulse Ox 100% on R/A; Weight 100.7 kg (R); jl7 Height 5 ft. 5 in. (165.10 cm); Pain 5/10; 10:22 BP 134 / 66; Pulse 73; Resp 18; Pulse Ox 100% on R/A; ic1 12:13 BP 149 / 61; Pulse 71; Resp 16; Pulse Ox 97% on R/A; ic1 13:19 BP 137 / 63; Pulse 76; Resp 18; Pulse Ox 99% on R/A; ic1 10:12 Body Mass Index 36.94 (100.70 kg, 165.10 cm) jl7 [place] Coma Score: 10:22 Eye Response: spontaneous(4). Verbal Response: oriented(5). Motor Response: obeys ic1 commands(6). Total: 15. MDM: 10:26 Patient medically screened. rn 13:12 Differential Diagnosis: Bronchitis Influenza Upper Respiratory Infection Sinusitis rn Viral Syndrome Pneumonia Other COVID. Data reviewed: vital signs, nurses notes, lab test result(s), radiologic studies, plain films, and as a result, I will discharge patient. Data interpreted: Pulse oximetry: on room air is 97 %. Interpretation: normal. Counseling: I had a detailed discussion with the patient and/or guardian regarding: the historical points, exam findings, and any diagnostic results supporting the discharge/admit diagnosis, radiology results, the need for outpatient follow up, to return to the emergency department if symptoms worsen or persist or if there are any questions or concerns that arise at home. Response to treatment: the patient's symptoms have markedly improved after treatment, and as a result, I will discharge patient. Special discussion: I discussed with the patient/guardian in detail that at this point there is no indication for admission to the hospital. It is understood, however, that if the symptoms persist or worsen the patient needs to return immediately for re-evaluation. 08/19 10:39 Order name: CBC with Diff rn 08/19 10:39 Order name: Basic Metabolic Panel; Complete Time: 11:55 rn 08/19 10:39 Order name: Procalcitonin; Complete Time: 11:55 rn 08/19 10:39 Order name: COVID-19/FLU A+B (Document "Date of Onset" if Symptomatic); Complete Time: rn 13:00 08/19 10:39 Order name: XRAY Chest (1 view); Complete Time: 11:55 rn 08/19 10:39 Order name: CBC with Automated Diff; Complete Time: 11:55 EDMS 08/19 10:39 Order name: IV Start; Complete Time: 10:45 rn Administered Medications: 10:50 Drug: NS 0.9% 1000 ml Route: IV; Rate: 1000 ml; Site: left forearm; Delivery: Primary ic1 tubing; 13:03 Follow up: IV Status: Completed infusion; IV Intake: 1000ml ic1 10:50 Drug: Zofran (Ondansetron) 4 mg Route: IVP; Site: left forearm; ic1 Disposition Summary: 08/19/21 13:14 Discharge Ordered Location: Home rn Problem: new rn Symptoms: have improved rn Condition: Stable rn Diagnosis - SARS-associated coronavirus as the cause of diseases classified elsewhere rn - Dehydration rn - Muscle weakness (generalized) rn Followup: rn - With: Private Physician - When: As needed - Reason: Recheck today's complaints, Re-evaluation by your physician Discharge Instructions: - Discharge Summary Sheet rn - COVID-19 rn - 10 Things You Can Do to Manage Your COVID-19 Symptoms at Home - [facility] rn - Viral Illness, Adult rn - Prevent the Spread of COVID-19 if You Are Sick - [facility] rn Forms: - Medication Reconciliation Form rn - Thank You Letter rn - Antibiotic rn faculty - Prescription Opioid Use rn Prescriptions: - Prednisone 20 mg Oral Tablet - take 3 tablets by ORAL route once daily for 5 days; 15 tablet; Refills: 0, rn Product Selection Permitted - Zithromax Z-Rusty 250 mg Oral Tablet - take 1 tablet by ORAL route as directed for 5 days Day 1 - take two (2) tablets rn one time. Day 2, 3, 4 , 5 take one (1) tablet once daily.; 6 tablet; Refills: 0, Product Selection Permitted Signatures: Dispatcher [employer] EDFaustino Fabian MD MD rn Leal, Jahala RN RN jl7 Dena Akers RN RN ic1
[2021-08-19 14:30] VITALS: TEMP 97.3
[2021-08-19 14:35] VITALS: BP 137/63; O2SAT 99
== END 2021-08-19 13:43 | disposition home or self-care (01) ==
LOC: ER 09:57
DX: U07.1 COVID-19 (principal); E86.0 Dehydration; I10 Essential (primary) hypertension; Z95.1 Presence of aortocoronary bypass graft; Z95.818 Presence of other cardiac implants and grafts; Z88.0 Allergy status to penicillin; Z88.1 Allergy status to other antibiotic agents; Z91.048 Other nonmedicinal substance allergy status
CPT/HCPCS: 96361; 85025; 80048; 36415; 84145; 0240U; 71045; 96374; 99285; J7030; J2405; 93005

== ENCOUNTER 2022-09-25 03:27 | Emergency (ER) | payer OTHER ==
--- OUTSIDE RECORDS SUMMARY | 2022-09-25 03:33 | XMS REPORT | Continuity of Care Document ---
:1950 Author Organization [facility] t Address [address] [place] [address] Care Team Providers Name Role Phone CAROLINE, VIRGILIO Primary Care Physician Unavailable CHEMA DELEON Attending Clinician Unavailable JOHN BURCIAGA Attending Clinician Unavailable PRESTON STUART Attending Clinician Unavailable Shanta Trimble MD Attending Clinician Doctor Unassigned, [place] Attending Clinician Unavailable VINCENT PATHAK Attending Clinician Unavailable John Burciaga MD Attending Clinician Bettie Maldonado MD Attending Clinician [phone] Inocencia Wu MD Attending Clinician Chema Deleon MD Attending Clinician Only, Adc Test Attending Clinician Unavailable Ige-Odunuga_J_AH Attending Clinician Unavailable KATELYN ELLINGTON Attending Clinician Unavailable ISABELLE Attending Clinician Unavailable CHEMA DELEON Admitting Clinician Unavailable JOHN BURCIAGA Admitting Clinician Unavailable TAMIEARSHANTA Admitting Clinician Unavailable Pancho LR, Chema Hitchcock Admitting Clinician Ige-Odunuga_J_AH Admitting Clinician Unavailable KATELYN ELLINGTON Admitting Clinician Unavailable ISABELLE Admitting Clinician Unavailable Payers Payer Name Policy Type Policy Number Effective Date Expiration Date Naldo anaya [employer] [id number] 2019spring 00:00:00 WELLCARE MAPS [id number] 2018 00:00:00 WELLCARE [place] 7 [id number] CLASSIC NO PREMIUM 00:00:00 R2T [place]LL[place]ARE OF [place] - [id number] [employer] (MEDICARE REPLACEMENT/ADVANT AGE - HMO) [place]: [id number] 2007 [employer] 00:00:00 Problems Condition Condition Condition Status Onset Resolution Last Treating Co mments Source Name Details Category Date Date Treatment Clinician Date Dermatitis Dermatitis Disease Active Kelvin campos 1-12 Seybold 00:00: - 00 Externa l Risk for Risk for Disease Active 2021-08 Kelse y falls falls 0-03 Seybold 00:00: - 00 Externa l 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 0-03 Seybol d mellitus mellitus 00:00: - with with 00 Externa hyperlipid hyperlipid l emia emia Primary Primary Disease Active 2021-08 Lolly hypertensi hypertensi 0-03 Se ybold on on 00:00: - 00 Externa l 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 0-03 Seybold obesity obesity 00:00: - due to due to 00 Externa excess excess l calories calories with with serious serious comorbidit comorbidit y and body y and body mass index mass index (BMI) of (BMI) of 38.0 to 38.0 to 38.9 in 38.9 in adult adult Acquired Acquired Disease Active 2021-08 Kelse y hypothyroi hypothyroi 0-03 Se ybold dism dism 00:00: - 00 Externa l Gastroesop Gastroesop Disease Active 2021-08 Kelvin campos hageal hageal 0-03 Seybold reflux reflux 00:00: - disease disease 00 Externa without without l esophagiti esophagiti s s Well adult Well adult Disease Active 2021-08 K elsey exam exam 0-03 Seybold 00:00: - 00 Externa l 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 heart heart Cardiolog without without y- angina angina Baradhi pectoris pectoris History of History of Disease Active 2021-08 Overview : Lolly gallstones gallstones 0-03 Formattin Seybold 00:00: g of this - 00 note Externa might be l different from the original. GI-Dr. Burciaga Arthritis Arthritis Disease Active 2021-08 Los sey 0-03 Seybold 00:00: - 00 Externa l DDD DDD Disease Active 2021-08 Lolly (degenerat (degenerat 0-03 Se ybold true disc true disc 00:00: - disease), disease), 00 Exte rna lumbar lumbar l Seasonal Seasonal Disease Active 2021-08 Losse y allergic allergic 0-03 Seybol d rhinitis rhinitis 00:00: - due to due to 00 Externa pollen pollen l Biliary Biliary Disease Active [facility] 00 [place] Essential Essential Disease Active [facility] hypertensi hypertensi 02-05 Jacqueline kes on on 00:00: Medical 00 [place] Type 2 Type [address] [facility] diabetes diabetes 02-05 [facility] mellitus mellitus 00:00: Medica l without without 00 Center complicati complicati on, with on, with long-term long-term current current use of use of insulin insulin History of History of Disease Active Overview : Lolly coronary coronary 8-13 Formattin Sey bold artery artery 00:00: g of this - stent stent 00 note Externa placement placement might be l different from the original. LAD stent placed by Dr. Almanzar Allergies, Adverse Reactions, Alerts Allergy Allergy Status Severity Reaction(s) Onset Inactive Treating Comm ents Source Name Type Date Date Clinician Iodine Propensi Active Anaphylaxis 2021-08 Met hodi ty to 2-12 st adverse 00:00: Hospita reaction 00 l s to drug Levoflox Propensi Active Anaphylaxis 2021-08 M ethodi acin ty to 2-12 st adverse 00:00: Hospita reaction 00 l s to drug Penicill Propensi Active Anaphylaxis 2021-08 M ethodi ins ty to 2-12 st adverse 00:00: Hospita reaction 00 l s to drug 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 s l matteo Levoflox Propensi Active Anaphylaxis 2019-08 K elsey acin ty to 19 Seybold adverse 00:00: - reaction 00 Externa s l Penicill Propensi Active Shortness of 2019-08 Hives Lolly ins ty to Breath 1-19 Seybold adverse 00:00: - reaction 00 Externa s l IODINE Drug Active High Anaphylaxis 2019-08 Unive rs AND Class 1-19 ity of IODIDE 00:00: [place] CONTAINI 00 Medical NG Branch PRODUCTS LEVOFLOX DRUG Active High Anaphylaxis 2019-08 Uni vers ACIN INGREDI 1-19 ity of 00:00: [place] 00 Medical Branch PENICILL Drug Active SOB 2019-08 Univers INS Class 1-19 ity of 00:00: [place] 00 Medical Branch Iodine Propensi Active Anaphylaxis 2019-08 Increased Univers And ty to 1-19 fluid ity of Iodide adverse 00:00: retention [place] Containi reaction 00 Medica l ng s Branch Products Penicill Propensi Active Shortness of 2019-08 Hives Univers ins ty to Breath 1-19 ity of adverse 00:00: [place] reaction 00 Medical s Branch Iodine Propensi Active Anaphylaxis 2019-08 Increased Univers And ty to 1-19 fluid ity of Iodide adverse 00:00: retention [place] Containi reaction 00 Medica l ng s Branch Products Penicill Propensi Active Shortness of 2019-08 Hives Univers ins ty to Breath 1-19 ity of adverse 00:00: [place] reaction 00 Medical s Branch IODINE DRUG Active Anaphylaxis 2019-08 Unive rs INGREDI 1-19 ity of 00:00: [place] 00 Medical Branch Iodine Propensi Active Anaphylaxis 2019-08 Increased Lolly ty to 1-19 fluid Seybold adverse 00:00: retention - reaction 00 Externa s l IODINE Allergy Active High Anaphylaxis [facility] AND 7-01 IODIDE 00:00: CONTAINI 00 NG PRODUCTS LEVOFLOX Allergy Active High Anaphylaxis [facility] ACIN 02-05 00:00: 00 PENICILL Allergy Active High Anaphylaxis [facility] INS 02-05 00:00: 00 Penicill Drug Active Anaphylaxis Itching, [facility] ins Allergy 02-[facility] Penicill Drug Active Anaphylaxis Itching, [facility] ins Allergy 02-05 [facility] 00 Center Iodine Drug Active Anaphylaxis Shellfish [facility] And Allergy 02-05 , iv and [facility] Iodide 00:00: topical Medical Containi 00 iodine, Center ng has Products steroids for premed Levoflox Drug Active Anaphylaxis [facility] acin Allergy 02-05 [facility] Center NO KNOWN Drug Active Univers ALLERGIE Class ity of S [facility] Family History Family Member Diagnosis Comments Start Date Stop Date Source Natural brother Cancer [facility] Natural brother Diabetes [facility] Natural brother Heart disease [facility] Natural brother Brain cancer [facility] Natural brother Diabetes [facility] Natural father Heart disease [facility] Natural father Heart attack [facility] Natural mother Heart disease [facility] Natural mother Heart attack [facility] Social History Social Habit Start Date Stop Date Quantity Comments Source Exposure to Not sure [facility] of SARS-CoV-2 [facility] History SDOH [facility] Alcohol Std Medical Cente r Drinks History SDOH [facility] Alcohol Binge Medical Efraín ter History SDOH [facility] Alcohol Comment Medical C enter Education 2022-05-10 2022-05-10 16 Lolly Duff - 00:00:00 00:00:00 External Alcohol intake 2021-12-25 2021-12-[address] [facility] Hilary es 00:00:00 00:00:00 non-drinker of Medical Ce nter alcohol (finding) History SDOH 2019-02-06 2019-02-[address] [facility] Alcohol Frequency 00:00:00 00:00:00 Medical Center Tobacco use and 2019-02-05 2019-02-[address] [facility] Jacqueline kes exposure 00:00:00 00:00:00 Medical Center Sex [birth year] At [birth year] [facility] Iglesias 00:00:00 00:00:00 Medical Center Smoking Status Start Date Stop Date Source Never smoked tobacco Lolly Seyb old - External Medications Ordered Filled Start Stop Current Ordering Indication Dosage Frequency Signature Comments Components Source Medication Medication Date Date Medication? Clinician (SIG) Name Name Metformin Yes 1000mg Take 1,000 Lolly HCl 1000 MG 2-09 mg by Seybold oral Tablet 07:49: mouth 2 - 27 times Externa daily l Aspirin 81 0 Yes 81mg Take 81 mg K elsey MG oral 2-09 by mouth Seybold Chewable 07:49: daily - Tablet 27 Externa l Loratadine Yes 10mg Take 10 mg K elsey 10 MG oral 2-09 by mouth Seybo ld Capsule 07:49: daily - 27 Externa l OZEMPIC Yes [id number] .5mg Inject 0.5 Lolly (0.25 or 2-09 mg into Seybold 0.5 00:00: the skin - mg/dose) 2 00 once a Externa mg/1.5 mL week l SQ Solution Pen-Injecto r Omeprazole 2022- No omeprazole Lolly 40 MG oral 1-12 01-12 40 mg Seybold Delayed 08:27: 00:00 capsule,de - Release 46 :00 layed Externa Capsule release l TAKE ONE (1) CAPSULE(S) BY MOUTH ONCE A DAY. Ketoconazol Yes [id number] Apply to Lolly e 2 % apply 1-12 affected Seyb old externally 00:00: area twice - Cream 00 daily for Externa 10 days l Omeprazole 0 Yes [id number] 40mg Take 1 Lolly 40 MG oral 1-12 capsule Seybol d Delayed 00:00: (40 mg - Release 00 total) by Externa Capsule mouth l daily OZEMPIC Yes [id number] .25mg Inject Los sey (0.25 or 1-12 0.25 mg Seybold 0.5 00:00: into the - mg/dose) 2 00 skin once Exte rna mg/1.5 mL a week l SQ Solution Pen-Injecto r Ketoconazol 0 Yes [id number] Apply to Lolly e 2 % apply 08-19 affected Seyb old externally 00:00: area twice - Cream 00 daily for Externa 10 days l Omeprazole Yes [id number] 40mg Take 1 Lolly 40 MG oral 08-19 capsule Seybol d Delayed 00:00: (40 mg - Release 00 total) by Externa Capsule mouth l daily OZEMPIC 2022- No [id number] .25mg Inject Ke lsey (0.25 or 08-19 0.25 mg Seybold 0.5 00:00: 00:00 into the - mg/dose) 2 00 :00 skin once Exte rna mg/1.5 mL a week l SQ Solution Pen-Injecto r Insulin Yes Tresiba Lolly Degludec 08-11 FlexTouch Seybol d (Tresiba 00:00: U-200 - FlexTouch) 00 insulin Advertising Production Manager a 200 UNIT/ML 200 l subcutaneou unit/mL (3 s Solution mL) Pen-injecto subcutaneo r us pen INJECT 56 UNITS SUBCUTANEO USLY TWICE A DAY. Insulin Yes Tresiba Lolly Degludec - FlexTouch Seybol d (Tresiba 00:00: U-200 - FlexTouch) 00 insulin Advertising Production Manager a 200 UNIT/ML 200 l subcutaneou unit/mL (3 s Solution mL) Pen-injecto subcutaneo r us pen INJECT 56 UNITS SUBCUTANEO USLY TWICE A DAY. atorvastati 2021-08 Yes 80mg QD Take 1 Meth jennifer n (LIPITOR) 2-13 tablet (80 st 80 MG 20:37: mg total) Hospita tablet 02 by mouth l daily. metFORMIN 2021-08 Yes 1000mg Q.5D Take 1 Meth jennifer (GLUCOPHAGE 2-[address] ) 1,000 mg 20:37: (1,000 mg Ho spita tablet 02 total) by l mouth 2 (two) times a day with meals. levothyroxi 2021-08 Yes 75ug QD Take 1 Meth jennifer ne 2-13 tablet (75 st (SYNTHROID) 20:37: mcg total) Hospita 75 mcg 02 by mouth l tablet daily. omeprazole 2021-08 Yes 40mg QD Take 1 Metho di (PriLOSEC) 2-[address] 40 MG 20:37: (40 mg Hospita capsule 02 total) by l mouth daily. insulin 2021-08 Yes 56U Q.5D Inject 56 Metho di degludec 2-[address] (TRESIBA 20:37: under the Hosp arturo U-100 02 skin 2 l INSULIN (two) SUBQ) times a day. loratadine 2021-08 Yes 10mg QD Take 1 Metho di (CLARITIN) 2-13 tablet (10 st 10 mg 20:37: mg total) Hospita tablet 02 by mouth l daily. amLODIPine 2021-08 Yes 10mg QD Take 1 Metho di (NORVASC) 2-13 tablet (10 st 10 mg 20:37: mg total) Hospita tablet 02 by mouth l daily. glipiZIDE 2021-08 Yes 10mg Q.5D Take 1 Method i (GLUCOTROL) 2-13 tablet (10 st 10 MG 20:37: mg total) Hospita tablet 02 by mouth 2 l (two) times a day before meals. aspirin 2021-08 Yes 81mg QD Take 1 Methodi (ECOTRIN) 2-13 tablet (81 st 81 MG 20:37: mg total) Hospita enteric 02 by mouth l coated daily. tablet predniSONE 2021-08 Yes 20mg QD Take 1 Metho di (DELTASONE) 2-13 tablet (20 st 20 mg 20:37: mg total) Hospita tablet 02 by mouth l daily. Take by mouth daily for three (3) days prior to procedure. cimetidine 2021-08 Yes 200mg QD Take 1 Meth jennifer (Tagamet 2-[address] HB) 200 MG 20:37: (200 mg Hosp arturo tablet 02 total) by l mouth daily. Take by mouth daily for three (3) days prior to procedure. hydrOXYzine 2021-08 Yes 25mg QD Take 1 Meth jeninfer (ATARAX) 25 2-13 tablet (25 st MG tablet 20:37: mg total) Hos rubi 02 by mouth l daily. Take by mouth daily for three (3) days prior to procedure. atorvastati 2021-08 Yes 80mg QD Take 1 Meth jennifer n (LIPITOR) 2-13 tablet (80 st 80 MG 20:37: mg total) Hospita tablet 02 by mouth l daily. metFORMIN 2021-08 Yes 1000mg Q.5D Take 1 Meth jennifer (GLUCOPHAGE 2-[address] ) 1,000 mg 20:37: (1,000 mg Ho spita tablet 02 total) by l mouth 2 (two) times a day with meals. levothyroxi 2021-08 Yes 75ug QD Take 1 Meth jennifer ne 2-13 tablet (75 st (SYNTHROID) 20:37: mcg total) Hospita 75 mcg 02 by mouth l tablet daily. omeprazole 2021-08 Yes 40mg QD Take 1 Metho di (PriLOSEC) 2-[address] 40 MG 20:37: (40 mg Hospita capsule 02 total) by l mouth daily. insulin 2021-08 Yes 56U Q.5D Inject 56 Metho di degludec 2-[address] (TRESIBA 20:37: under the Hosp arturo U-100 02 skin 2 l INSULIN (two) SUBQ) times a day. loratadine 2021-08 Yes 10mg QD Take 1 Metho di (CLARITIN) 2-13 tablet (10 st 10 mg 20:37: mg total) Hospita tablet 02 by mouth l daily. amLODIPine 2021-08 Yes 10mg QD Take 1 Metho di (NORVASC) 2-13 tablet (10 st 10 mg 20:37: mg total) Hospita tablet 02 by mouth l daily. glipiZIDE 2021-08 Yes 10mg Q.5D Take 1 Method i (GLUCOTROL) 2-13 tablet (10 st 10 MG 20:37: mg total) Hospita tablet 02 by mouth 2 l (two) times a day before meals. aspirin 2021-08 Yes 81mg QD Take 1 Methodi (ECOTRIN) 2-13 tablet (81 st 81 MG 20:37: mg total) Hospita enteric 02 by mouth l coated daily. tablet predniSONE 2021-08 Yes 20mg QD Take 1 Metho di (DELTASONE) 2-13 tablet (20 st 20 mg 20:37: mg total) Hospita tablet 02 by mouth l daily. Take by mouth daily for three (3) days prior to procedure. cimetidine 2021-08 Yes 200mg QD Take 1 Meth jennifer (Tagamet 2-[address] HB) 200 MG 20:37: (200 mg Hosp arturo tablet 02 total) by l mouth daily. Take by mouth daily for three (3) days prior to procedure. hydrOXYzine 2021-08 Yes 25mg QD Take 1 Meth jennifer (ATARAX) 25 2-13 tablet (25 st MG tablet 20:37: mg total) Hos rubi 02 by mouth l daily. Take by mouth daily for three (3) days prior to procedure. Atorvastati 2021-08 Yes [id number] atorvastat Lolly n Calcium 1-03 in 80 mg Seybol d 80 MG oral 00:00: tablet - Tablet 00 TAKE ONE Externa (1) l TABLET(S) BY MOUTH ONCE A DAY AT BEDTIME. Amlodipine 2021-08 Yes [id number] 10mg Take 1 K elsey Besylate 10 1-03 tablet (10 Se ybold MG oral 00:00: mg total) - Tablet 00 by mouth Externa daily l Irbesartan 2021-08 Yes [id number] 300mg Take 1 Lolly 300 MG oral 1-03 tablet Seybol d Tablet 00:00: (300 mg - 00 total) by Externa mouth l nightly Atorvastati 2021-08 Yes [id number] atorvastat Lolly n Calcium 1-03 in 80 mg Seybol d 80 MG oral 00:00: tablet - Tablet 00 TAKE ONE Externa (1) l TABLET(S) BY MOUTH ONCE A DAY AT BEDTIME. Amlodipine 2021-08 Yes [id number] 10mg Take 1 K elsey Besylate 10 1-03 tablet (10 Se ybold MG oral 00:00: mg total) - Tablet 00 by mouth Externa daily l Irbesartan 2021-08 Yes [id number] 300mg Take 1 Lolly 300 MG oral 1-03 tablet Seybol d Tablet 00:00: (300 mg - 00 total) by Externa mouth l nightly Levothyroxi 2021-08 Yes [id number] 75ug Take 1 Lolly ne Sodium 0-12 tablet (75 Seyb old 75 MCG oral 00:00: mcg total) - Tablet 00 by mouth Externa daily l GlipiZIDE 2021-08 Yes [id number] 10mg Take 1 Ke lsey 10 MG oral 0-12 tablet (10 Sey bold TABLET SR 00:00: mg total) - 24 HR 00 by mouth Externa daily l Levothyroxi 2021-08 Yes [id number] 75ug Take 1 Lolly ne Sodium 0-12 tablet (75 Seyb old 75 MCG oral 00:00: mcg total) - Tablet 00 by mouth Externa daily l GlipiZIDE 2021-08- No [id number] 10mg Take 1 K elsey 10 MG oral 0-12 02-09 tablet (10 Se ybold TABLET SR 00:00: 00:00 mg total) - 24 HR 00 :00 by mouth Externa daily l Metformin 2021-08 Yes 1000mg Take 1,000 Lolly HCl 1000 MG 0-03 mg by Seybold oral Tablet 08:17: mouth 2 - 34 times Externa daily l Amlodipine 2021-08 Yes 10mg Take 10 mg K elsey Besylate 10 0-03 by mouth Seyb old MG oral 08:17: daily - Tablet 34 Externa l Aspirin 81 2021-08 Yes 81mg Take 81 mg K elsey MG oral 0-03 by mouth Seybold Chewable 08:17: daily - Tablet 34 Externa l Atorvastati 2021-08 Yes atorvastat Lolly n Calcium 0-03 in 80 mg Seybol d 80 MG oral 08:17: tablet - Tablet 34 TAKE ONE Externa (1) l TABLET(S) BY MOUTH ONCE A DAY AT BEDTIME. Insulin 2021-08 Yes Tresiba Lolly Degludec 0-03 FlexTouch Seybol d (Tresiba 08:17: U-200 - FlexTouch) 34 insulin Advertising Production Manager a 200 UNIT/ML 200 l subcutaneou unit/mL (3 s Solution mL) Pen-injecto subcutaneo r us pen INJECT 56 UNITS SUBCUTANEO USLY TWICE A DAY. Omeprazole 2021-08 Yes omeprazole K elsey 40 MG oral 0-03 40 mg Seybold Delayed 08:17: capsule,de - Release 34 layed Externa Capsule release l TAKE ONE (1) CAPSULE(S) BY MOUTH ONCE A DAY. Loratadine 2021-08 Yes 10mg Take 10 mg K elsey 10 MG oral 0-03 by mouth Seybo ld Capsule 08:17: daily - 34 Externa l Metformin 2021-08 Yes 1000mg Take 1,000 Lolly HCl 1000 MG 0-03 mg by Seybold oral Tablet 08:17: mouth 2 - 34 times Externa daily l Aspirin 81 2021-08 Yes 81mg Take 81 mg K elsey MG oral 0-03 by mouth Seybold Chewable 08:17: daily - Tablet 34 Externa l Loratadine 2021-08 Yes 10mg Take 10 mg K elsey 10 MG oral 0-03 by mouth Seybo ld Capsule 08:17: daily - 34 Externa l Ibuprofen 2021-08 Yes [id number] 600mg Q.[id number] Take 1 Lolly 600 MG oral 0-03 [id number] tablet Seybold Tablet 00:00: 3D (600 mg - 00 total) by Externa mouth l every 8 hours as needed for pain FLUTICASONE 2021-08 Yes [id number] 50ug Use 1 K elsey PROPIONATE, 0-03 spray (50 Sey bold NASAL, 50 00:00: mcg total) - MCG/ACT 00 in each Externa nasal nostril l Suspension daily Cetirizine 2021-08 Yes [id number] 10mg Take 1 K elsey HCl (ZyrTEC 0-03 capsule Seybo ld Allergy) 10 00:00: (10 mg - MG oral 00 total) by Externa Capsule mouth l daily Ibuprofen 2021-08 Yes [id number] 600mg Q.[id number] Take 1 Lolly 600 MG oral 0-03 [id number] tablet Seybold Tablet 00:00: 3D (600 mg - 00 total) by Externa mouth l every 8 hours as needed for pain FLUTICASONE 2021-08 Yes [id number] 50ug Use 1 K elsey PROPIONATE, 0-03 spray (50 Sey bold NASAL, 50 00:00: mcg total) - MCG/ACT 00 in each Externa nasal nostril l Suspension daily Cetirizine 2021-08 Yes [id number] 10mg Take 1 K elsey HCl (ZyrTEC 0-03 capsule Seybo ld Allergy) 10 00:00: (10 mg - MG oral 00 total) by Externa Capsule mouth l daily Ibuprofen 2021-08 Yes [id number] 600mg Q.[id number] Take 1 Lolly 600 MG oral 0-03 [id number] tablet Seybold Tablet 00:00: 3D (600 mg - 00 total) by Externa mouth l every 8 hours as needed for pain FLUTICASONE 2021-08 Yes [id number] 50ug Use 1 K elsey PROPIONATE, 0-03 spray (50 Sey bold NASAL, 50 00:00: mcg total) - MCG/ACT 00 in each Externa nasal nostril l Suspension daily Cetirizine 2021-08 Yes [id number] 10mg Take 1 K elsey HCl (ZyrTEC 0-03 capsule Seybo ld Allergy) 10 00:00: (10 mg - MG oral 00 total) by Externa Capsule mouth l daily Levothyroxi Yes 75ug Take 75 Los sey ne Sodium 9-12 mcg by Seybold 75 MCG oral 00:00: mouth - Tablet 00 daily Externa l GlipiZIDE Yes 10mg Take 10 mg Ke lsey 10 MG oral 7-21 by mouth Seybo ld TABLET SR 00:00: daily - 24 HR 00 Externa l irbesartan Yes 300mg QD Take [address] (AVAPRO) 5-19 mg by [facility] 300 MG 19:11: mouth Medical tablet 36 nightly . Center omeprazole Yes 40mg QD Take [address] (PRILOSEC) 5-19 by mouth [facility] 40 MG 19:11: daily. Medical capsule 36 Center levothyroxi Yes 75ug Take [address] [facility] ne 5-19 mcg by [facility] (SYNTHROID, 19:11: mouth Medic al LEVOTHROID) 36 Every Center 75 MCG morning on tablet an empty stomach. metFORMIN Yes 1000mg Take 1,[address] (GLUMETZA) 5-19 mg by [facility] 1000 MG 19:11: mouth 2 Medical (MOD) 24 hr 36 (two) Center tablet times daily with breakfast and dinner. atorvastati Yes 80mg QD Take [address] n (LIPITOR) 5-19 by mouth Luke s 80 MG 19:11: nightly. Medical tablet 36 Center amLODIPine Yes 10mg QD Take [address] (NORVASC) 5-19 by mouth [facility] 10 MG 19:11: daily . Medical tablet 36 Center aspirin 81 Yes 81mg QD Take [address] MG EC 5-19 by mouth [facility] tablet 19:11: daily. Medical 36 Center glipiZIDE Yes 5mg QD Take [address] [facility] (GLUCOTROL 5-19 by mouth [facility] XL) 5 MG 24 19:11: daily. Medi mookie hr tablet 36 Center ibuprofen Yes 800mg Take [address] (ADVIL,MOTR 5-19 mg by [facility]ukes IN) 800 MG 19:11: mouth Medica l tablet 36 every 6 Center (six) hours as needed for Pain. sulfamethox Yes 1{tbl} Q.5D Take [address] azole-trime 5-19 tablet by Hilary es thoprim 19:11: mouth 2 Medical (BACTRIM 36 (two) Center DS) 800-160 times mg per daily. tablet insulin Yes 56U Q.5D Inject 56 [facility] degludec 5-19 Units [facility] (TRESIBA 19:11: subcutaneo Med ical U-100 36 usly 2 Center INSULIN (two) SUBQ) times daily. irbesartan Yes 300mg QD Take [address] (AVAPRO) 5-19 mg by [facility] 300 MG 19:11: mouth Medical tablet 36 nightly . Center omeprazole Yes 40mg QD Take [address] (PRILOSEC) 5-19 by mouth [facility] 40 MG 19:11: daily. Medical capsule 36 Center levothyroxi Yes 75ug Take [address] ne 5-19 mcg by [facility]ukes (SYNTHROID, 19:11: mouth Medic al LEVOTHROID) 36 Every Center 75 MCG morning on tablet an empty stomach. metFORMIN Yes 1000mg Take 1,[address] (GLUMETZA) 5-19 mg by [facility] 1000 MG 19:11: mouth 2 Medical (MOD) 24 hr 36 (two) Center tablet times daily with breakfast and dinner. atorvastati Yes 80mg QD Take [address] n (LIPITOR) 5-19 by mouth Luke s 80 MG 19:11: nightly. Medical tablet 36 Center amLODIPine Yes 10mg QD Take [address] (NORVASC) 5-19 by mouth [facility] 10 MG 19:11: daily . Medical tablet 36 Center aspirin 81 0 Yes 81mg QD Take [address] MG EC 5-19 by mouth [facility] tablet 19:11: daily. Medical 36 Center glipiZIDE Yes 5mg QD Take [address] [address] (GLUCOTROL 5-19 by mouth [facility] XL) 5 MG 24 19:11: daily. Medi mookie hr tablet 36 Center ibuprofen 0 Yes 800mg Take [address] (ADVIL,MOTR 5-19 mg by [facility]ukes IN) 800 MG 19:11: mouth Medica l tablet 36 every 6 Center (six) hours as needed for Pain. sulfamethox 0 Yes 1{tbl} Q.5D Take [address] azole-trime 5-19 tablet by Hilary es thoprim 19:11: mouth 2 Medical (BACTRIM 36 (two) Center DS) 800-160 times mg per daily. tablet insulin 0 Yes 56U Q.5D Inject 56 [facility] degludec 5-19 Units [facility] (TRESIBA 19:11: subcutaneo Med ical U-100 36 usly 2 Center INSULIN (two) SUBQ) times daily. irbesartan Yes 300mg QD Take [address] (AVAPRO) 5-19 mg by [facility] 300 MG 19:11: mouth Medical tablet 36 nightly . Center omeprazole Yes 40mg QD Take [address] (PRILOSEC) 5-19 by mouth [facility] 40 MG 19:11: daily. Medical capsule 36 Center levothyroxi Yes 75ug Take [address] ne 5-19 mcg by Lukes (SYNTHROID, 19:11: mouth Medic al LEVOTHROID) 36 Every Center 75 MCG morning on tablet an empty stomach. metFORMIN Yes 1000mg Take 1,[address] (GLUMETZA) 5-19 mg by [facility] 1000 MG 19:11: mouth 2 Medical (MOD) 24 hr 36 (two) Center tablet times daily with breakfast and dinner. atorvastati 0 Yes 80mg QD Take [address] n (LIPITOR) 5-19 by mouth Luke s 80 MG 19:11: nightly. Medical tablet 36 Center amLODIPine 0 Yes 10mg QD Take [address] (NORVASC) 5-19 by [facility] 10 MG 19:11: daily . Medical tablet 36 Center aspirin 81 Yes 81mg QD Take [address] MG EC 5-19 by mouth [facility] tablet 19:11: daily. [address] glipiZIDE Yes 5mg QD Take [address] [facility] (GLUCOTROL 5-19 by mouth [facility] XL) 5 MG 24 19:11: daily. Medi mookie hr tablet 36 Center ibuprofen Yes 800mg Take [address] (ADVIL,MOTR 5-19 mg by [facility] IN) 800 MG 19:11: mouth Medica l tablet 36 every 6 Center (six) hours as needed for Pain. sulfamethox Yes 1{tbl} Q.5D Take [address] azole-trime 5-19 tablet by Hilary es thoprim 19:11: mouth 2 Medical (BACTRIM 36 (two) Center DS) 800-160 times mg per daily. tablet insulin 0 Yes 56U Q.5D Inject 56 [facility] degludec 5-19 Units [facility] (TRESIBA 19:11: subcutaneo Med ical U-[address] [place] [address] [address] [place] INSULIN (two) SUBQ) times daily. amLODIPine Yes 10mg Take 10 mg U nivers 10 mg 3-03 by mouth ity of tablet 16:56: every [place] [address] morning. Medical Branch aspirin 81 Yes 81mg Take 81 mg U nivers mg chewable 3-03 by mouth ity of tablet 16:56: daily. [place] [address] Medical Branch atorvastati Yes 80mg Take 80 mg Univers n 80 mg 3-03 by mouth ity of tablet 16:56: daily. [place] [address] Medical Branch levothyroxi Yes 75ug Take 75 Uni vers ne 100 mcg 3-03 mcg by ity of tablet 16:56: mouth. [place] [address] Medical Branch omeprazole Yes 40mg Take 40 mg U nivers 40 mg 3-03 by mouth ity of capsule 16:56: at [place] [address] bedtime. Medical Branch irbesartan Yes 300mg Take 300 Un jeffry 300 mg 3-03 mg by ity of tablet 16:56: mouth at [place] [address] bedtime. Medical Branch metFORMIN 0 Yes 1000mg Take 1,000 Univers 1,000 mg 24 3-03 mg by ity of hr tablet 16:56: mouth [place] 41 daily with Medical breakfast. Branch insulin 2020-0 Yes 56U inject 56 Unive rs detemir 3-03 Units ity of U-100 100 16:56: under the [place] unit/mL 41 skin. Medical injection Branch amLODIPine 2019-08 Yes 10mg Take 10 mg U nivers 10 mg 1-23 by mouth ity of tablet 14:22: every [place] 13 morning. Medical Branch aspirin 81 2019-08 Yes 81mg Take 81 mg U nivers mg chewable 1-23 by mouth ity of tablet 14:22: daily. [place] [address] Medical Branch atorvastati 2019-08 Yes 80mg Take 80 mg Univers n 80 mg 1-23 by mouth ity of tablet 14:22: daily. [place] [address] Medical Branch levothyroxi 2019-08 Yes 75ug Take 75 Uni vers ne 100 mcg 1-23 mcg by ity of tablet 14:22: mouth. [place] [address] Medical Branch omeprazole 2019-08 Yes 40mg Take 40 mg U nivers 40 mg 1-23 by mouth ity of capsule 14:22: at [place] [address] bedtime. Medical Branch irbesartan 2019-08 Yes 300mg Take 300 Un jeffry 300 mg 1-23 mg by ity of tablet 14:22: mouth at [place] [address] bedtime. Medical Branch metFORMIN 2019-08 Yes 1000mg Take 1,000 Univers 1,000 mg 24 1-23 mg by ity of hr tablet 14:22: mouth [place] 13 daily with Medical breakfast. Branch insulin 2019-08 Yes 56U inject 56 Unive rs detemir 1-23 Units ity of U-100 100 14:22: under the [place] as unit/mL 13 skin. Medical injection Branch amLODIPine 2019-08 Yes 10mg Take 10 mg U nivers 10 mg 1-23 by mouth ity of tablet 14:22: every [place] 13 morning. Medical Branch aspirin 81 2019-08 Yes 81mg Take 81 mg U nivers mg chewable 1-23 by mouth ity of tablet 14:22: daily. [place] [address] Medical Branch atorvastati 2019-08 Yes 80mg Take 80 mg Univers n 80 mg 1-23 by mouth ity of tablet 14:22: daily. [place] [address] Medical Branch levothyroxi 2019-08 Yes 75ug Take 75 Uni vers ne 100 mcg 1-23 mcg by ity of tablet 14:22: mouth. [place] [address] Medical Branch omeprazole 2019-08 Yes 40mg Take 40 mg U nivers 40 mg 1-23 by mouth ity of capsule 14:22: at [place] [address] bedtime. Medical Branch irbesartan 2019-08 Yes 300mg Take 300 Un jeffry 300 mg 1-23 mg by ity of tablet 14:22: mouth at [place] [address] bedtime. Medical Branch metFORMIN 2019-08 Yes 1000mg Take 1,000 Univers 1,000 mg 24 1-23 mg by ity of hr tablet 14:22: mouth [place] [address] daily with Medical breakfast. Branch insulin 2019-08 Yes 56U inject 56 Unive rs detemir 1-23 Units ity of U-100 100 14:22: under [place] unit/mL 13 skin. Medical injection Branch lactated 2019-08 Yes 1000mL at 75 Univer s ringers IV 1-23 mL/hr, ity of infusion 14:00: 1,000 [place], [place] 1[place] 00 IV Medical Infusion, Branch CONTINUOUS , Starting [facility] 06/30/20 at 0800, Until Discontinu ed, Routine, PACU ondansetron 2019-08 Yes 4mg 4 mg, Slow Univers (ZOFRAN 23 IV Push, ity of (PF)) 13:57: PRN, 1 [place] injection 4 11 dose, Medical mg Starting Branch [facility] 06/30/20 at 0757, Until Discontinu ed, Routine, Nausea and Vomiting (N/V), PACU triamcinolo 2019-08 Yes PRN, Univer s ne 08-30 Starting ity of acetonide 13:35: [facility] (KENALOG) 06/30/20 Medica l injection at 0735, Branch Until Discontinu ed, Routine, Intra-op iohexoL 2019-08 Yes PRN, Univers (OMNIPAQUE 08-30 Starting ity o f 350 BULK-50 13:35: [facility] mL) 06/30/20 Medical injection at 0735, [place] Until Discontinu ed, Routine, Intra-op bupivacaine 2019-08 Yes PRN, Univer s (preserv 08-30 Starting ity of free) 13:35: [facility] (SENSORCAIN 06/30/20 Medi mookie E MPF) 0.25 at 0735, Bran ch % (2.5 Until mg/mL) Discontinu injection ed, Routine, Intra-op lidocaine 2019-08 Yes PRN, Univers 1% 1-23 Starting ity of (XYLOCAINE) 13:34: Mon [place] 10 mg/mL (1 06/30/20 Medi mookie %) at 0734, Branch injection Until Discontinu ed, Routine, Intra-op lactated 2019-08 2020- No 1000mL at 42 Unive rs ringers IV -23 11-23 mL/hr, ity of infusion 13:00: 13:11 1,000 mL, [place] 1,000 mL 00 :00 IV Medical Infusion, Branch ONCE, 1 dose, Tue06/30/20 at 0700, Routine, DSU Pre-op irbesartan 2019-08 Yes 300mg Take 300 Un jeffry 300 mg 1-19 mg by ity of tablet 21:00: mouth at [place] [address] bedtime. Medical Branch metFORMIN 2019-08 Yes 1000mg Take 1,000 Univers 1,000 mg 24 1-19 mg by ity of hr tablet 21:00: mouth [place] [address] daily with Medical breakfast. Branch insulin 2019-08 Yes 56U inject 56 Unive rs detemir 1-19 Units ity of U-100 100 21:00: under [place] as unit/mL 24 skin. Medical injection Branch aspirin 81 2019-08 Yes 81mg Take 81 mg U nivers mg chewable 1-19 by mouth ity of tablet 21:00: daily. [place] [address] Medical Branch atorvastati 2019-08 Yes 80mg Take 80 mg Univers n 80 mg 1-19 by mouth ity of tablet 21:00: daily. [place] [address] Medical Branch levothyroxi 2019-08 Yes 75ug Take 75 Uni vers ne 100 mcg 1-19 mcg by ity of tablet 21:00: mouth. [place] [address] Medical Branch omeprazole 2019-08 Yes 40mg Take 40 mg U nivers 40 mg 1-19 by mouth ity of capsule 21:00: at [place] [address] bedtime. Medical Branch amLODIPine 2019-08 Yes 10mg Take 10 mg U nivers 10 mg 1-19 by mouth ity of tablet 20:54: every [place] [address] morning. Medical Branch Vital Signs Vital Name Observation Time Observation Value Comments Source HEIGHT 2020-12-25 07:38:00 165.1 cm WEIGHT 2020-12-25 07:38:00 104.237 kg WEIGHT 2020-12-23 12:01:00 105.688 kg HEIGHT 2020-12-23 12:01:00 165.1 cm Systolic blood 2022-09-16 13:45:00 150 mm[Hg] Lolly Seybold - pressure External Diastolic blood 2022-09-16 13:45:00 80 mm[Hg] Kelse y Seybold - pressure External Heart rate 2022-09-16 13:45:00 85 /min Lolly S eybold - External Body temperature 2022-09-16 13:45:00 35.5 Carmen Karissa ey Seybold - External Respiratory rate 2022-09-16 13:45:00 15 /min Karissa ey Seybold - External Body height 2022-09-16 13:45:00 165.1 cm Lolly S eybold - External Body weight 2022-09-16 13:45:00 104.327 kg Lolly S eybold - External BMI 2022-09-16 13:45:00 38.27 kg/m2 Lolly S eybold - External Body height 2022-08-19 14:02:00 165.1 cm Lolly S eybold - External Body weight 2022-08-19 14:02:00 105.507 kg Lolly S eybold - External BMI 2022-08-19 14:02:00 38.71 kg/m2 Lolly S eybold - External Oxygen saturation in 2022-08-19 14:02:00 99 /min Lolly Benitezjoserubin - Arterial blood by External Pulse oximetry Systolic blood 2022-08-19 14:02:00 145 mm[Hg] Lolly Seybold - pressure External Diastolic blood 2022-08-19 14:02:00 83 mm[Hg] Kelse y Seybold - pressure External Heart rate 2022-08-19 14:02:00 78 /min Lolly S eybold - External Body temperature 2022-08-19 14:02:00 36.61 Carmen Karissa ey Seybold - External Respiratory rate 2022-08-19 14:02:00 15 /min Karissa ey Seybold - External Systolic blood 2022-05-10 13:06:00 144 mm[Hg] Lolly Seybold - pressure External Diastolic blood 2022-05-10 13:06:00 82 mm[Hg] Perlita Duff - pressure External Heart rate 2022-05-10 13:06:00 98 /min Lolly woodsbomax - External Body temperature 2022-05-10 13:06:00 36.28 Carmen Karissa Duff - External Respiratory rate 2022-05-10 13:06:00 16 /min Karissa Duff - External Body height 2022-05-10 13:06:00 165.1 cm Lolly woodsbomax - External Body weight 2022-05-10 13:06:00 105.235 kg Lolly woodsbomax - External BMI 2022-05-10 13:06:00 38.61 kg/m2 Lolly woodsbold - External HEIGHT 2021-12-24 13:30:00 165.1 cm WEIGHT 2021-12-24 13:30:00 104.327 kg HEIGHT 2021-12-21 10:46:00 165.1 cm WEIGHT 2021-12-21 10:46:00 104.327 kg HEIGHT 2021-12-24 13:30:00 165.1 cm WEIGHT 2021-12-24 13:30:00 104.327 kg HEIGHT 2021-12-21 10:46:00 165.1 cm WEIGHT 2021-12-21 10:46:00 104.327 kg HEIGHT 2021-12-24 13:30:00 165.1 cm WEIGHT 2021-12-24 13:30:00 104.327 kg HEIGHT 2021-12-21 10:46:00 165.1 cm WEIGHT 2021-12-21 10:46:00 104.327 kg HEIGHT 2020-12-25 07:38:00 165.1 cm WEIGHT 2020-12-25 07:38:00 104.237 kg WEIGHT 2020-12-23 12:01:00 105.688 kg HEIGHT 2020-12-23 12:01:00 165.1 cm Systolic blood 2020-06-30 14:00:00 123 mm[Hg] Univer sity of pressure [facility] Diastolic blood 2020-06-30 14:00:00 67 mm[Hg] Unive rsity of pressure [facility] Heart rate 2020-06-30 14:00:00 71 /min [facility] Body temperature 2020-06-30 14:00:00 36.67 Carmen Univ ersity of [facility] Respiratory rate 2020-06-30 14:00:00 18 /min Univ ersity of [facility] Oxygen saturation in 2020-06-30 14:00:00 95 /min University of Arterial blood by [facility] Pulse oximetry Branch Body height 2020-06-27 18:02:00 165.1 cm Universi ty of [facility] Body weight 2020-06-27 18:02:00 102.1 kg Universi ty of [facility] BMI 2020-06-27 18:02:00 37.46 kg/m2 Universi ty of [facility] Systolic blood 2020-06-30 14:00:00 123 mm[Hg] Univer sity of pressure [facility] Diastolic blood 2020-06-30 14:00:00 67 mm[Hg] Unive rsity of pressure [facility] Heart rate 2020-06-30 14:00:00 71 /min Universi ty of [facility] Body temperature 2020-06-30 14:00:00 36.67 Carmen Univ ersity of [facility] Respiratory rate 2020-06-30 14:00:00 18 /min Univ ersity of [facility] Oxygen saturation in 2020-06-30 14:00:00 95 /min University of Arterial blood by [facility] Pulse oximetry Branch Body height 2020-06-27 18:02:00 165.1 cm [facility] Body weight 2020-06-27 18:02:00 102.1 kg [facility] ty [facility] BMI 2020-06-27 18:02:00 37.46 kg/m2 Universi ty [facility] Systolic blood 2022-07-20 02:00:00 152 mm[Hg] [facility] Di[facility] blood 2022-07-20 02:00:00 66 mm[Hg] [facility] pressure Heart rate 2022-07-20 02:00:00 72 /min [facility] Respiratory rate 2022-07-20 02:00:00 14 /min [facility] Oxygen saturation in 2022-07-20 02:00:00 97 /min [facility] Arterial blood by Pulse oximetry Body temperature 2022-07-19 22:30:00 36.22 Carmen [facility] Body height 2022-07-19 19:16:00 165.1 cm [facility] Body weight 2022-07-19 19:16:00 103.556 kg [facility] BMI 2022-07-19 19:16:00 37.99 kg/m2 [facility] Systolic blood 2021-12-24 18:35:00 141 mm[Hg] [facility] Diastolic blood 2021-12-24 18:35:00 60 mm[Hg] [facility] Heart rate 2021-12-24 18:35:00 74 /min [facility] Body temperature 2021-12-24 18:35:00 36.56 Carmen [facility] Respiratory rate 2021-12-24 18:35:00 16 /min [facility] Oxygen saturation in 2021-12-24 18:35:00 92 /min [facility] Arterial blood by Medical Ce nter Pulse oximetry Body height 2021-12-24 13:30:00 165.1 cm [facility] Body weight 2021-12-24 13:30:00 104.327 kg [facility] BMI 2021-12-24 13:30:00 38.27 kg/m2 [facility] Procedures Procedure Date / Time Performing Source Performed Clinician POC GLUCOSE 2022-07-19 22:38:00 Shanta Trimble spital CV LEFT HEART CATH LV GRAM 2022-07-19 22:17:35 Shanta Trimble [facility] WITH CORS ESTIMATED GFR 2022-07-19 20:27:00 Shanta Trimble spital POC PANEL 2022-07-19 20:27:00 Shanta Trimble spital CBC WITH PLATELET AND 2022-07-19 20:22:00 Shanta Trimble [facility] DIFFERENTIAL POC GLUCOSE 2022-07-19 19:14:00 Shanta Trimble spital ECG PRE/POST OP 2022-07-19 18:52:15 Shanta Trimble spital [facility] 2022-05-10 13:29:52 Preston Stuart - External INSURANCE CORRESPONDENCE 2022-03-03 05:01:00 Doctor Unassigned, [facility] [place] [facility] REPORT OF PROCEDURE - 2021-12-24 17:40:33 John Burciaga [facility] [place] ERCP 2021-12-24 17:40:00 John Burciaga [facility] ENDOSCOPIC RETROGRADE 2021-12-24 17:13:00 John Burciaga [facility] DUCT VISUALIZATION, USING PANCREATICOBILIARY FIBEROPTIC PROBE PROCEDURE W/ C-ARM 2021-12-24 17:13:00 John Burciaga [facility] POCT-GLUCOSE METER 2021-12-24 14:20:00 John Burciaga [facility] CBC WITH DIFF 2020-06-30 13:02:00 Chema Deleon [facility] POCT GLUCOSE(AGE >30DAYS) 2020-06-30 12:55:00 [facility] 2020-06-30 06:01:00 Doctor Unassigned, [facility] [place] [facility] Plan of Care Planned Activity Planned Date Details Comments Source Future Scheduled 2022-12-[address] [facility] Test 00:00:00 Counseling and Medical Cente r Screening (12+) [code = Tobacco Cessation Counseling and Screening (12+)] Future Scheduled 2022-12-[address] [facility] Test 00:00:00 Counseling and Medical Cente r Screening (12+) [code = Tobacco Cessation Counseling and Screening (12+)] Future Scheduled 2022-08-[address] [facility] Test 00:00:00 (12+) [code = Medical Center DEPRESSION SCREENING (12+)] Future Scheduled 2022-08-08 FALLS RISK SCREENING [facility] Test 00:00:00 [code = FALLS RISK Medical C enter SCREENING] Future Scheduled 2022-08-[address] [facility] Test 00:00:00 (12+) [code = Medical Center DEPRESSION SCREENING (12+)] Future Scheduled 2022-08-08 FALLS RISK SCREENING [facility] 00:00:00 [code = FALLS RISK Medical C enter SCREENING] Future Scheduled 2022-04-08 INFLUENZA VACCINE (#1) [facility]:00:00 [code = INFLUENZA Medical Ce nter VACCINE (#1)] Future Scheduled 2022-04-08 INFLUENZA VACCINE (#1) [facility] 00:00:00 [code = INFLUENZA Medical Ce nter VACCINE (#1)] Future Scheduled 2022-04-08 INFLUENZA VACCINE (#1) [facility] 00:00:00 [code = INFLUENZA Medical Ce nter VACCINE (#1)] Future Scheduled 2021-08-[address] [facility] 00:00:00 WELLNESS (YEAR 2 or Medical Center FIRST YEAR if no IPPE) [code = MEDICARE ANNUAL WELLNESS (YEAR 2 or FIRST YEAR if no IPPE)] Future Scheduled 2021-08-[address] [facility] 00:00:00 WELLNESS (YEAR 2 or Medical Center FIRST YEAR if no IPPE) [code = MEDICARE ANNUAL WELLNESS (YEAR 2 or FIRST YEAR if no IPPE)] Future Scheduled 2021-08-[address] [facility] 00:00:00 WELLNESS (YEAR 2 or Medical Center FIRST YEAR if no IPPE) [code = MEDICARE ANNUAL WELLNESS (YEAR 2 or FIRST YEAR if no IPPE)] Future Scheduled 2021-08-[address] [facility] 00:00:00 (12+) [code = Medical Center DEPRESSION SCREENING (12+)] Future Scheduled 2021-08-08 FALLS RISK SCREENING [facility] 00:00:00 [code = FALLS RISK Medical C enter SCREENING] Future Scheduled 2019-03-24 PNEUMOCOCCAL 65+ YRS ([address] [facility] 00:00:00 - PCV) [code = Medical Cente r PNEUMOCOCCAL 65+ YRS (2 - PCV)] Future Scheduled 2019-03-24 PNEUMOCOCCAL 65+ YRS ([address] [facility] 00:00:00 - PCV) [code = Medical Cente r PNEUMOCOCCAL 65+ YRS (2 - PCV)] Future Scheduled 2019-03-24 PNEUMOCOCCAL 65+ YRS ([address] [facility] 00:00:00 - PCV) [code = Medical Cente r PNEUMOCOCCAL 65+ YRS (2 - PCV)] Future Scheduled 2019-02-[address] [facility] Test 00:00:00 measurement (procedure) [facility] [code = [id number]] Future Scheduled 2019-02-[address] [facility] 00:00:00 measurement (procedure) [facility] [code = [id number]] Future Scheduled 2019-02-[address] [facility] 00:00:00 measurement (procedure) [facility] [code = 79423898] Future Scheduled 1999 SHINGLES VACCINES ([address] [facility] 00:00:00 2) [code = SHINGLES Medical Center VACCINES (1 of 2)] Future Scheduled 1999 SHINGLES VACCINES ([address] [facility] 00:00:00 2) [code = SHINGLES Medical Center VACCINES (1 of 2)] Future Scheduled 1999 SHINGLES VACCINES ([address] [facility] 00:00:00 2) [code = SHINGLES Medical Center VACCINES (1 of 2)] Future Scheduled 1968 DTAP/TDAP/TD [facility]ACCINES [facility] 00:00:00 (1 - Tdap) [code = Medical C enter DTAP/TDAP/TD VACCINES (1 - Tdap)] Future Scheduled 1968 DTAP/TDAP/TD VACCINES [facility] 00:00:00 (1 - Tdap) [code = Medical C enter DTAP/TDAP/TD VACCINES (1 - Tdap)] Future Scheduled 1968 DTAP/TDAP/TD VACCINES [facility] 00:00:00 (1 - Tdap) [code = Medical C enter DTAP/TDAP/TD VACCINES (1 - Tdap)] Future Scheduled 1967 HEPATITIS C SCREENING [facility] 00:00:00 [code = HEPATITIS C Medical Center SCREENING] Future Scheduled 1967 HEPATITIS C [facility]CRE[facility]ING [facility] 00:00:00 [code = HEPATITIS C Medical Center SCREENING] Future Scheduled 1967 HEPATITIS C [facility]CRE[facility]ING [facility] 00:00:00 [code = HEPATITIS C Medical Center SCREENING] Future Scheduled 1959 DIABETIC EYE EXAM [code [facility] 00:00:00 = DIABETIC EYE EXAM] Medical Center Future Scheduled [address] [facility] 00:00:00 examination Medical Center (regime/therapy) [code = 708979205] Future Scheduled 1959 Urine screening for [facility] 00:00:00 protein (procedure) Medical Center [code = 481641408] Future Scheduled 1959 DIABETIC EYE EXAM [code [facility] 00:00:00 = DIABETIC EYE EXAM] Medical Center Future Scheduled [address] [facility] Test 00:00:00 examination Medical Center (regime/therapy) [code = 468743067] Future Scheduled 1959 Urine screening for [facility] 00:00:00 protein (procedure) Medical Center [code = 122886280] Future Scheduled 1959 DIABETIC EYE EXAM [code [facility] 00:00:00 = DIABETIC EYE EXAM] Medical Center Future Scheduled [address] [facility] Test 00:00:00 examination Medical Center (regime/therapy) [code = 313549537] Future Scheduled 1959 Urine screening for [facility] 00:00:00 protein (procedure) Medical Center [code = 260043318] Future Scheduled 1949 COVID-19 VACCINE (#1) [facility] 00:00:00 [code = COVID-[address] VACCINE (#1)] Future Scheduled 1949 COVID-19 VACCINE (#1) [facility] 00:00:00 [code = COVID-[address] VACCINE (#1)] Future Scheduled 1949 COVID-19 VACCINE (#1) [facility] 00:00:00 [code = COVID-[address] VACCINE (#1)] Future Scheduled 1949 Screening for malignant [facility] 00:00:00 neoplasm of breast Medical C enter (procedure) [code = 461171649] Future Scheduled 1949 CT Colonography (combo) [facility] 00:00:00 [code = CT Colonography [facility] (combo)] Future Scheduled 1949 Screening for malignant [facility] 00:00:00 neoplasm of colon Medical Ce nter (procedure) [code = 628426311] Future Scheduled 1949 Screening for malignant [facility] 00:00:00 neoplasm of colon Medical Ce nter (procedure) [code = 878929063] Future Scheduled 1949 DXA SCAN [code = DXA [facility] 00:00:00 SCAN] [facility] Future Scheduled 1949 Screening for malignant [facility] 00:00:00 neoplasm of colon Medical Ce nter (procedure) [code = 127867094] Future Scheduled 1949 Screening for malignant [facility] 00:00:00 neoplasm of colon Medical Ce nter (procedure) [code = 620698096] Future Scheduled 1949 Sigmoidoscopy [code = [facility] Sigmoidoscopy] [facility] Future Scheduled 1949 Screening for malignant [facility] 00:00:00 neoplasm of breast Medical C enter (procedure) [code = 965048571] Future Scheduled 1949 CT Colonography (combo) [facility] 00:00:00 [code = CT Colonography [facility] (combo)] Future Scheduled 1949 Screening for malignant [facility] 00:00:00 neoplasm of colon Medical Ce nter (procedure) [code = 451291876] Future Scheduled 1949 Screening for malignant [facility] 00:00:00 neoplasm of colon Medical Ce nter (procedure) [code = 556932383] Future Scheduled 1949 DXA SCAN [code = DXA [facility] 00:00:00 SCAN] [facility] Future Scheduled 1949 Screening for malignant [facility] 00:00:00 neoplasm of colon Medical Ce nter (procedure) [code = 459570490] Future Scheduled 1949 Screening for malignant [facility] 00:00:00 neoplasm of colon Medical Ce nter (procedure) [code = 049459003] Future Scheduled 1949 Sigmoidoscopy [code = [facility] 1949 Screening for malignant [facility] 00:00:00 neoplasm of breast Medical C enter (procedure) [code = 458854631] Future Scheduled 1949 CT Colonography (combo) [facility] 00:00:00 [code = CT Colonography [facility] (combo)] Future Scheduled 1949 Screening for malignant [facility] 00:00:00 neoplasm of colon Medical Ce nter (procedure) [code = 677607963] Future Scheduled 1949 Screening for malignant [facility] Test 00:00:00 neoplasm of colon Medical Ce nter (procedure) [code = 954992992] Future Scheduled 1949 DXA SCAN [code = DXA [facility] 00:00:00 SCAN] [facility] Future Scheduled 1949 Screening for malignant [facility] 00:00:00 neoplasm of colon Medical Ce nter (procedure) [code = 472068747] Future Scheduled 1949 Screening for malignant [facility] 00:00:00 neoplasm of colon Medical Ce nter (procedure) [code = 691730209] Future Scheduled 1949 Sigmoidoscopy [code = [facility] 00:[facility] Sigmoidoscopy] Medical Bijan finley Encounters Start End Encounter Admission Attending Care Care Encounter Source Date/Time Date/Time Type Type Clinicians Facility Department ID 2021-06-06 Outpatient Tushar DELEON [facility] [id number] Univers 06:09:27 [facility] 2021-05-16 Out[facility] [id number] [facility] 21:10:52 JOHN 2022-10-14 2022-10-14 Outpatient LOLLY STUART [id number] Lolly 08:30:00 08:30:00 PRESTON Seybol d 2022-09-16 2022-09-16 Outpatient LOLLY STUART [id number] Lolly 08:00:00 08:00:00 PRESTON Seybol d 2022-08-20 2022-08-20 Outpatient LOLLY STUART [id number] Lolly 00:00:00 00:00:00 PRESTON Seybol d 2022-08-19 2022-08-19 Outpatient LOLLY STUART [id number] Lolly 09:00:00 09:00:00 PRESTON Seybol d 2022-08-11 2022-08-11 Outpatient PREZALOLLY Hitchcock LOLLY [id number] Lolly 00:00:00 00:00:00 PRESTON Seybol d 2022-08-10 2022-08-10 Outpatient LOLLY STUART LOLLY [id number] Lolly 08:15:00 08:15:00 PRESTON Seybol d 2022-07-19 2022-07-19 [facility] Attks, 1.2.840.1 [id number] Methodi 12:13:00 20:37:00 Encounter Shanta 13076.1.1 923 s t 3.430.2.7 Hospit a .3.618556 l .8 2022-07-19 2022-07-19 [facility] Attks, 1.2.840.1 [id number] Methodi 12:13:00 20:37:00 Encounter Shanta 86042.1.1 923 s t 3.430.2.7 Hospit a .3.198124 l .8 2022-07-19 2022-07-19 Surgery Attks, 1.2.840.1 [id number] Methodi 15:20:00 16:40:[address] 3.430.2.7 Hospit a .3.733725 l .8 2022-07-19 2022-07-19 Surgery Attks, 1.2.840.1 [id number] Methodi 15:20:00 16:40:[address] 3.430.2.7 Hospit a .3.133829 l .8 2022-07-19 2022-07-19 Outpatient LOLLY PACE [id number] Lolly 00:00:00 00:00:00 Seybol d 2022-07-19 2022-07-19 Travel 1.2.840.1 1.2.262.045 [id number] Methodi 00:00:00 00:00:[address] 3.430.2.7 0.2.7.3.698 Ho spita .3.442337 084.8 l .8 2022-07-19 2022-07-19 Travel 1.2.840.1 1.2.700.605 [id number] Methodi 00:00:00 00:00:[address] 3.430.2.7 0.2.7.3.698 Ho spita .3.950184 084.8 l .8 2022-05-19 2022-05-19 Outpatient LOLLY STUART [id number] Lolly 00:00:00 00:00:00 PRESTON gant 2022-05-10 2022-05-10 Outpatient LOLLY STUART [id number] Lolly 08:45:00 08:45:00 PRESTON gant 2022-03-03 2022-03-03 Orders Doctor FRANKY 1.2.840.114 [id number] [facility] 00:00:00 00:00:00 Only Unassigned, PETEY 350.1.13.10 ity of [place] [facility] 4.2.7.2.686 [place] [id number] [address] 2022-02-23 2022-02-23 Outpatient Tushar PATHAK [facility] [id number] Univers 11:00:00 11:00:00 SENDIL ity of [facility] 2021-12-24 2021-12-24 [facility] [id number] [facility] 12:17:00 18:57:00 Encounter [facility] 2021-12-24 2021-12-24 [facility] [id number] [facility] 12:17:00 18:57:00 Encounter [facility] 2021-12-24 2021-12-24 Outpatient ROZINA WOODALL Surgery [id number] SLE 12:17:00 18:57:00 JOHN 2021-12-24 2021-12-[address] [facility] [id number] [facility] 17:18:00 17:53:00 Event [facility] 2021-12-24 2021-12-[address] [facility] [id number] [facility] 17:18:00 17:53:00 Event [facility] 2021-12-24 2021-12-[address] [facility] [id number] 16:02:00 17:02:00 [facility] 2021-12-24 2021-12-[address] [facility] [id number] 16:02:00 17:02:00 [facility] 2021-12-24 2021-12-24 Travel [facility] [id number] [facility] 00:[facility]00 00:00:00 [facility] 2021-12-24 2021-12-24 Travel [facility] [id number] [facility] 00:00:00 00:00:00 [facility] 2021-12-21 2021-12-21 Outpatient EL [facility]H SLEH [id number] [facility] 10:56:58 23:59:00 2021-12-21 2021-12-21 [facility] [id number] 10:40:00 23:59:00 Encounter [facility] 2021-12-21 2021-12-21 [facility] [id number] 10:40:00 23:59:00 Encounter [facility] 2021-12-21 2021-12-21 Travel [facility] [id number] [facility] 00:00:00 00:00:00 [facility] 2021-12-21 2021-12-21 Travel [facility] [id number] [facility] 00:00:00 00:00:00 [facility] 2020-12-23 2020-12-23 Outpatient R [facility] [id number] Univers 13:00:00 13:00:00 ity of [facility] 2020-12-23 2020-12-23 Outpatient R [facility] [id number] Univers 11:20:00 11:20:00 ity of [facility] 2020-12-23 2020-12-23 Outpatient SLE SLE [id number] [facility] 00:00:00 00:00:00 2020-06-30 2020-06-30 [facility] 1.2.840.114 [id number] 06:46:00 08:16:00 Encounter Chema Naldo Yadira 350.1.13.10 [place] 4.2.7.2.686 Surgical [id number] [place] [address] 2020-06-30 2020-06-30 Outpatient R [facility] DARLIN [id number] Univers 06:46:00 08:16:00 CHEMA ity [facility] 2020-06-30 2020-06-30 [facility] 1.2.840.114 [id number] Univers 06:46:00 08:16:00 Encounter Chema May 350.1.13.10 ity [place].2.[place] [facility] [id number] [facility] [address] 2020-06-30 2020-06-30 Orders Doctor WILKINS 1.2.840.114 [id number] 00:00:00 00:00:00 Only Unassigned, PETEY 350.1.13.10 [place] [facility] 4.2.7.2.686 [id number] [facility] 2020-06-30 2020-06-30 Orders Doctor FRANKY 1.2.840.114 [id number] Univers 00:00:00 00:00:00 Only Unassigned, PETEY 350.1.13.10 ity of [place] [facility] 4.2.7.2.686 [place] [id number] [address] 2020-06-27 2020-06-27 Outpatient R [facility] [id number] Univers 14:45:00 14:45:00 CHEMA ity [facility] 2020-06-27 2020-06-27 Laboratory Only, Adc [facility] 1.2.840.114 [id number] 07:50:58 08:05:58 Only Test [place] 350.1.13.10 [place] 4.2.7.2.686 [place] [id number] [facility] 2020-06-27 2020-06-27 Laboratory Only, Adc Test [facility] 1.2.840. 114 [id number] [facility] 07:50:58 08:05:58 Only Chema Deleon 350.1.13.1 0 ity [facility] 4.2.7.2.686 [facility] [id number] [address] 2020-06-24 2020-06-24 Outpatient R PANCHO [facility] [id number] [facility] 09:15:00 09:15:00 [facility] 2019-11-06 2019-11-06 Outpatient Ige[facility] VFP VFP [id number] 11:38:00 11:38:00 _J_AH [facility] 2019-11-06 2019-11-06 Outpatient Ige[place] VFP VFP [id number] 11:38:00 11:38:00 _J_AH 26090 Family Practic e 2016-06-29 2016-06-29 Outpatient CANNON_J MMG G 2019 [place] 03:16:00 03:16:00 0506 [facility] Results Test Description Test Time Test Comments Results Result Comments Source ECG Pre/Post Op 2022-07-20 04:16:30 Test Item Value Reference Range Interpretation Comme nts Ventricular rate (test code = 253) 80 Atrial rate (test code = 255) 80 CA interval (test code = 266) 150 QRSD interval (test code = 260) 128 QT interval (test code = 264) 402 QTC interval (test code = 265) 463 P axis 1 (test code = 267) 66 QRS axis 1 (test code = 268) -57 T wave axis (test code = 270) 94 EKG impression (test code = 273) Normal sinus rhythm-Left axis almita ation-Left bundle branch block-Abnormal ECG-In automated comparison with ECG of 25-NOV-2014 13:21,-No significant change was found- [facility] Pre/Post [id number] 04:16:30 Test Item Value Reference Range Interpretation Comments Ventricular rate (test code = 253) Atrial rate (test code = 255) CA interval (test code = 266) QRSD interval (test code = 260) QT interval (test code = 264) QTC interval (test code = 265) P axis 1 (test code = 267) QRS axis 1 (test code = 268) T wave axis (test code = 270) EKG impression (test Normal sinus code = 273) rhythm-Left axis deviation-Left bundle branch block-Abnormal ECG-In automated comparison with ECG of 25-NOV-2014 13:21,-No significant change was found- [facility] lab [id number] 04:08:01 Test Item Value Reference Range Interpretation Comments Cath EF Estimated 53 % (test code = 5429056320) EVIN (test code = Coronary arteriography and EVIN) left ventriculography performed via the right groin without complication. Left main segment was normal. LAD proximal stent patent. Circumflex normal. Right coronary artery dominant and normal. Left ventriculography showed mild apical hypokinesis with ejection fraction of 50 to 55%. LVEDP is normal. No evidence of aortic valve stenosis or mitral valve sufficiency. Coronary Findings Diagnostic Dominance: RightLeft Anterior Descending: Previously placed Ost LAD to Prox LAD stent (unknown type) is widely patent. InterventionNo interventions have been documented.Left VentricleThe LV size is normal. The LV systolic function is normal. LV systolic pressure is normal. LV end diastolic pressure is normal. The ejection fraction is 50-55% by visual estimate.Mitral ValveThere is no mitral valve stenosis and no mitral valve prolapse evident. There is normal mitral valve motion. The annulus is normal.Aortic ValveThere is normal aortic valve motion. There is no aortic valve stenosis.Wall MotionThe following segments are hypokinetic: apical anterior.The following segments are normal: mid anterior, mid inferior, basilar anterior, basilar inferior and apical inferior. [facility] lab [id number] 04:08:01 Test Item Value Reference Range Interpretation Comments Cath EF Estimated 53 % (test code = 4447140272) EVIN (test code = Coronary arteriography and EVIN) left ventriculography performed via the right groin without complication. Left main segment was normal. LAD proximal stent patent. Circumflex normal. Right coronary artery dominant and normal. Left ventriculography showed mild apical hypokinesis with ejection fraction of 50 to 55%. LVEDP is normal. No evidence of aortic valve stenosis or mitral valve sufficiency. Coronary Findings Diagnostic Dominance: RightLeft Anterior Descending: Previously placed Ost LAD to Prox LAD stent (unknown type) is widely patent. InterventionNo interventions have been documented.Left VentricleThe LV size is normal. The LV systolic function is normal. LV systolic pressure is normal. LV end diastolic pressure is normal. The ejection fraction is 50-55% by visual estimate.Mitral ValveThere is no mitral valve stenosis and no mitral valve prolapse evident. There is normal mitral valve motion. The annulus is normal.Aortic ValveThere is normal aortic valve motion. There is no aortic valve stenosis.Wall MotionThe following segments are hypokinetic: apical anterior.The following segments are normal: mid anterior, mid inferior, basilar anterior, basilar inferior and apical inferior. [facility] [id number] 22:39:00 Test Item Value Reference Range Interpretation Comments POC glucose (test code = 123 mg/dL 65-99 H Ope rator Name: [id number]) Basilio Chen ID: [id number] able : No Action Nee ded Lab Interpretation (test Abnormal code = 57674-0) [facility] [id number] 22:39:00 Test Item Value Reference Range Interpretation Comments POC glucose (test code = 123 mg/dL 65-99 H Ope rator Name: [id number]) Basilio Almarazice ID: [id number] able : No Action Nee ded Lab Interpretation (test Abnormal code = 79875-4) [facility] [id number] 20:31:01 Test Item Value Reference Range Interpretation Comments POC sodium (test code = 140 mmol/L 469-277 5010-0) POC potassium (test 3.5 mmol/L 3.5-5.0 code = 6298-4) POC chloride (test code 100 mmol/L 99-109 = 2069-3) POC CO2 (test code = 27 mmol/L -8) POC glucose (test code 137 mg/dL 65-99 H = 2339-0) POC BUN (test code = 16 mg/dL 03-31 6299-2) POC creatinine (test 0.8 mg/dl 0.5-0.9 code = 97564-9) POC hematocrit (test 40 % 37-47 code = 4544-3) POC anion gap (test 18 mmol/L 8-20 Brewmaster Name: Danny code = [id number]) WenjuDevice ID: [id number] Lab Interpretation Abnormal (test code = 19974-7) [facility] [id number] 20:31:01 Test Item Value Reference Range Interpretation Comments POC sodium (test code = 140 mmol/L 665-664 9704-0) POC potassium (test 3.5 mmol/L 3.5-5.0 code = 6298-4) POC chloride (test code 100 mmol/L 99-109 = 2069-3) POC CO2 (test code = 27 mmol/L ) POC glucose (test code 137 mg/dL 65-99 H = 2339-0) POC BUN (test code = 16 mg/dL 03-31 6299-2) POC creatinine (test 0.8 mg/dl 0.5-0.9 code = 05738-1) POC hematocrit (test 40 % 37-47 code = 4544-3) POC anion gap (test 18 mmol/L -20 Brewmaster Name: Danny code = [id number]) WenjuDevice ID: [id number] Lab Interpretation Abnormal (test code = 26387-4) [facility] [id number] 20:31:00 Test Item Value Reference Range Interpretation Comments Estimated GFR (test mL/min/1.73 m2 Caterg ory Units code = 62003-7) Interpretati onG1 >=90 Normal or highG 2 60-89 Mildly decrease dG3a 45-59 Mildly to moder ately deuodcobtF9w 30 -44 Moderately to s everely decreasedG4 15- 29 Severely decreasedG5 <15 Kidney failureThe eGFR was calculated priscilla francisco the Chronic Kidney Disease Epidemiology Co llaboration (CKD-EPI) equat ion. Interpretation is based on recommendations of the National Kidney Foundation-Kidn ey Disease Outcomes Qualit y Initiative (NKF-KDOQI) pub lished in 2014. [facility] [facility] [id number] 20:31:00 Test Item Value Reference Range Interpretation Comments Estimated GFR (test 73 mL/min/1.73 m2 Kenia cardenas Units code = 43927-2) Interpretati onG1 >=90 Normal or highG 2 60-89 Mildly decrease dG3a 45-59 Mildly to moder ately cvpxnjserF2r 30 -44 Moderately to s everely decreasedG4 15- 29 Severely decreasedG5 <15 Kidney failureThe eGFR was calculated priscilla francisco the Chronic Kidney Disease Epidemiology Co llaboration (CKD-EPI) equat ion. Interpretation is based on recommendations of the National Kidney Foundation-Kidn ey Disease Outcomes Qualit y Initiative (NKF-KDOQI) pub lished in 2013. [employer] [id number] 13:30:33 Test Item Value Reference Range Interpretation Comments QuantaFlo left side See_Comment [Automa alon message] The (test code = system which [employer] nerated this 03550-7B) result transmit alon reference range : 1.40 - 0.90 NA. The re ference range was not u sed to interpret this result as normal/abnormal . QuantaFlo right side See_Comment Present ation Factors: (test code = Hypertension, 53298-9I) Hyperlipidemia, DiabetesExercis e Modality: At RestNormal - 1.40 - 1.00Borderline - 0.99 - 0.90Mild - 0.89 - 0.60Moderate - 0.59 - 0.30Severe - 0. 29 - 0.00 [Automated mess age] The system which [employer] nerated this result transmit alon reference range : 1.40 - 0.90 NA. The re ference range was not u sed to interpret this result as normal/abnormal . Lolly Duff [id number] 17:46:10Reason for exam:->bile duct strictureCOMM[facility] CENTERName: VARSHA JOY : 1950 Sex: FAn imaging unit was utilized for this procedure. No radiologist interpretation was requested. Refer to the EMR for findings. Refer to PACS for any patient radiation dose information.POC-Glucose [id number] 14:30:55 Test Item Value Reference Range Interpretation Comments POC-Glucose Meter (test 146 mg/dL 70-110 H : TE STED AT [facility] code = 1538) [address] [facility], 770 30: Brewmaster/Techni lexie ID = [id number] for Hooton, Marcela Lab Interpretation (test Abnormal code = 36728-1) [facility] [id number] 14:30:55 Test Item Value Reference Range Interpretation Comments POC-Glucose Meter (test 146 mg/dL 70-110 H : TE STED AT [facility] code = 1538) [address] [facility], 770 30: Brewmaster/Techni lexie ID = [id number] for Hooton, Marcela Lab Interpretation (test Abnormal code = 97954-7) [facility] [id number] 14:30:55 Test Item Value Reference Range Interpretation Comments POC-Glucose Meter (test 146 mg/dL 70-110 H : TE STED AT [facility] code = 1538) [address] [place] [address], 770 30: Brewmaster/Techni lexie ID = [id number] for Hooton, Marcela Lab Interpretation (test Abnormal code = 36330-1) [facility] [id number] 14:30:55 Test Item Value Reference Range Interpretation Comments POC-GLUCOSE METER 146 mg/dL 70-110 H : TESTED A T [facility] 6720 (BEAKER) (test code = [facility], 1538) [address]: Brewmaster/Techni lexie ID = [id number] for Ho brendaon, Marcela POCT-GLUCOSE [id number] 11:22:00 Test Item Value Reference Range Interpretation Comments POC-GLUCOSE METER 188 mg/dL 70-110 H : Notified RN/MD: (LAURI) (test code = TESTED AT [facility] 6720 1538) [place] [facility], [address]: Brewmaster/Techni lexie ID = [id number] for ZOE ESPITIA [place], [id number] 10:54:00Reason for exam:->calculus of bile duct [facility] : 1950 Sex: FFluoroscopic unit utilized for a procedure performed in the OR. No interpretation was requested. Refer tothe operative report for findings. Refer to PACS for patient radiation dose information.POCT-GLUCOSE [id number] 08:13:00 Test Item Value Reference Range Interpretation Comments POC-GLUCOSE METER 197 mg/dL 70-110 H : TESTED A T [facility] 6720 (LAURI) (test code = [place], 1538) [address]: Brewmaster/Techni lexie ID = [id number] for Tamiko Petty CBC WITH [id number] 13:14:00 Test Item Value Reference Range Interpretation Comments WBC (test code = See_Comment [Automated message] 6690-2) The system [employer] generated this result transmitted ref erence range: 4.30 - 1 1.10 10*3/?L. The re ference range was not u sed to interpret this result as normal/abnor mal. RBC (test code = See_Comment [Automated message] 789-8) The system [employer] generated this result transmitted ref erence range: [...] RDW-SD (test code 45.6 fL 39-49.9 = 26353-6) RDW-CV (test code 14.3 % 12-15.5 = 788-0) PLT (test code = See_Comment [Automated message] 777-3) The system [employer] generated this result transmitted ref erence range: 166 - 35 8 10*3/?L. The re ference range was not u sed to interpret this result as normal/abnor mal. MPV (test code = 10.6 fL 9.5-12.9 82787-8) NRBC/100 WBC (test See_Comment [Automat ed message] code = 1287082652) The syste m which generated this result transmitted ref erence range: 0.0 - 10 .0 /100 WBCs. The refer ence range was not u sed to interpret this result as normal/abnor mal. NRBC x10^3 (test <0.01 See_Comment [Automated message] code = 5133077488) The syste m which generated this result transmitted ref erence range: 10*3/?L. The reference range was not used to interpr et this result as normal/abnormal . GRAN MAT (NEUT) % 60.2 % (test code = 770-8) IMM GRAN % (test 0.40 % code = 8561888021) LYMPH % (test code 28.3 % = 736-9) MONO % (test code 7.3 % = 5905-5) EOS % (test code = 2.8 % 713-8) BASO % (test code 1.0 % = 706-2) GRAN MAT 4.06 10*3/uL 1.88-7.09 x10^3(ANC) (test code = 0907419394) IMM GRAN x10^3 0.03 10*3/uL 0-0.06 (test code = 1055405279) LYMPH x10^3 (test 1.91 10*3/uL 1.32-3.29 code = 731-0) MONO x10^3 (test 0.49 10*3/uL 0.33-0.92 code = 742-7) EOS x10^3 (test 0.19 10*3/uL 0.03-0.39 code = 711-2) BASO x10^3 (test 0.07 10*3/uL 0.01-0.07 code = 704-7) [facility] [id number] 12:55:00 Test Item Value Reference Range Interpretation Comments POCT Glu (age>30days) (test code = 194 mg/dL 70-110 A 3342) Lab Interpretation (test code = Abnormal 64946-9) [facility] CenterFL, [id number] 22:39:00INTRA OP IMAGINGReason for exam:->CBD STONESFINAL REPORT Examination: ERCP 4 fluoroscopic spot views were obtained during the procedure by the ordering service. Images are nondiagnostic as no radiologist was present at the time of imaging. Fluoroscopic time was 122.2 seconds. Please see the procedure report for details. Signed: Reyes Spicer Verified Date/Time: 02/07/2019 22:39:15 Reading Location: [address] Reading Room POCT- GLUCOSE [id number] 18:25:00 Test Item Value Reference Range Interpretation Comments POC-GLUCOSE METER 200 mg/dL 70-110 H TESTED AT [place] [address] ([facility]) (test code = KRISTIN Finley [facility] 1538) [address] POCT-GLUCOSE [id number] 15:42:00 Test Item Value Reference Range Interpretation Comments POC-GLUCOSE METER 164 mg/dL 70-[address] [facility] 6720 ([facility]) (test code = KRISTIN Finley [place] 1538) [address] POCT-GLUCOSE [id number] 12:01:00 Test Item Value Reference Range Interpretation Comments POC-GLUCOSE METER 189 mg/dL 70-[address] [facility] 6720 ([facility]) (test code = [place] 1538) [address] POCT-GLUCOSE [id number] 05:00:00 Test Item Value Reference Range Interpretation Comments POC-GLUCOSE METER 196 mg/dL 70-[address] [facility] 6720 ([facility]) (test code = KRISTIN [place] 1538) [address] POCT-GLUCOSE [id number] 00:28:00 Test Item Value Reference Range Interpretation Comments POC-GLUCOSE METER 218 mg/dL 70-[address] [facility] 67 ([facility]) (test code = KRISTIN Finley [place] 1538) [address] POCT-GLUCOSE [id number] 17:58:00 Test Item Value Reference Range Interpretation Comments POC-GLUCOSE METER 155 mg/dL 70-110 H TESTED AT [place] [address] ([facility]) (test code = KRISTIN [place] 1538) [address] MR, ABDOMEN, [id number] 12:55:00FINAL REPORT TECHNIQUE: MRI of the abdomen [...] Accessory duct of Santorini. ADRENALS: No adrenal nodules.KID NEYS/URETERS: No hydronephrosis or solid mass lesions. A lateral pole fat density lesion measures 0.9 cm on axial in phase image 5. PERITONEUM/RETROPERITONEUM: No free fluid.LYMPH NODES: No lymphadenopa thy.VESSELS: Unremarkable. GI TRACT: No distention or wall thickening. BONES AND SOFT TISSUES: Unremarkable. IMPRESSION: 1.A stone in the common bile duct measures 0.6 cm and results in mild intrahepatic ductal dilation. 2.A right upper pole 0.9 cm renal lesion is incompletely evaluated on this noncontrast MRI. 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 3.Diffuse fatty infiltration of the liver.Signed: Teresa Dowling Verified Date/Time: 02/06/2019 12:55:19 Reading Location: [facility] B1 C013Y CT Body Reading Room POCT-GLUCOSE [id number] 11:33:00 Test Item Value Reference Range Interpretation Comments POC-GLUCOSE METER 190 mg/dL 70-[address] [facility] 6720 (BEAKER) (test code = [facility] 1538) [address] POCT-GLUCOSE [id number] 06:13:00 Test Item Value Reference Range Interpretation Comments POC-GLUCOSE METER 210 mg/dL 70-[address] [facility] 6720 ([facility]) (test code = [facility] 1538) [address] PROTHROMBIN TIME/[id number] 03:06:00 Test Item Value Reference Range Interpretation Comments PROTIME (BEAKER) (test code = 15.4 seconds 11.9-14.2 H 759) INR (BEAKER) (test code = 370) 1.3 <=5.9 Effective 01/03/2019: PT Reference Range ChangeNew: 11.9-14.2 Previous: 11.7- 14.7RECOMMENDED COUMADIN/WARFARIN INR THERAPY RANGESSTANDARD DOSE: 2.0-3.0 Includes: PROPHYLAXIS for venous thrombosis, systemic embolization; TREATMENT for venous thrombosis and/or pulmonary embolus.HIGH RISK: Target INR is 2.5-3.5 for patients wiht mechanical heart valves.[id number] 03:06:00 Test Item Value Reference Range Interpretation Comments MAGNESIUM (BEAKER) 1.3 mg/dL 1.6-2.6 L Specimen slightly (test code = 627) hemolyzed BASIC METABOLIC [id number] 03:06:00 Test Item Value Reference Range Interpretation [...] 697) EGFR (BEAKER) (test 69 mL/min/1.73 ESTIMA ALON GFR IS code = 1092) sq m NOT ACCURATE CREATININE CLEARANCE IN PREDICTING GLOMERULAR FILTRATION RATE . ESTIMATED GFR I S NOT APPLICABLE FOR DIALYSIS PATIEN TS. Specimen slightly ictericHEPATIC FUNCTION [id number] 03:06:00 Test Item Value Reference Range Interpretation [...] Specimen slightly ictericCBC W/PLT COUNT & AUTO [id number] 02:50:00 Test Item Value Reference Range Interpretation [...] PERCENT (BEAKER) (test code = 2801) POCT-GLUCOSE [id number] 23:33:00 Test Item Value Reference Range Interpretation Comments POC-GLUCOSE METER 241 mg/dL 70-[address] [facility] ([place]) (test code = KRISTIN [place] 59[address]) [id number]
[2022-09-25] MEDS ORDERED: NA CHLORIDE 0.9% 1,000 ML ONE (04:08)
[2022-09-25] MEDS ORDERED: ONDANSETRON 4 MG/2 ML VIAL ONE (04:08)
[2022-09-25 04:21] LABS: Absolute Lymphocytes (CBC) 1.4 K/uL (0.7-4.9); Hematocrit 39.5 % (36.0-45.0); MCV 83.3 fL (80-100); MPV 8.4 fL (7.6-11.3); RBC Red Blood Cell Count 4.74 M/uL (3.86-4.86)
[2022-09-25 04:23] LABS: Urine Blood Trace-lysed (Negative); Urine Glucose Negative (Negative); Urine Protein Negative (Negative); Urine pH 5.5 (5.0-7.0)
[2022-09-25 04:30] LABS: Urine Bacteria <20 /HPF (<20); Urine Mucus Slight /HPF (None Seen); Urine RBC <5 /HPF (None Seen)
[2022-09-25 04:40] LABS: Albumin 3.3 g/dL (3.4-5.0); Bilirubin Total 0.3 mg/dL (0.2-1.0); Magnesium 1.8 mg/dL (1.6-2.4); Potassium 3.7 mmol/L (3.5-5.1); Protein, Total 7.6 g/dL (6.4-8.2); Troponin High Sensitivity 7.6 pg/mL (<58.9)
--- NOTE | 2022-09-25 04:57 | EDPHYS ---
Physician Documentation [facility] – [place], [place] Name: Laura Khanna Age: 72 yrs Sex: Female : 1950 Arrival Date: 09/25/2022 Time: 03:34 Bed 6 Private MD: ED Physician Geena Bustos HPI: 09/25 03:58 This 72 yrs old Female presents to ER via Ambulatory with complaints of Dizziness, sd2 General Weakness, Difficulty Swallowing. 03:58 72-year-old female presents with chief complaint of lightheadedness, generalized sd2 weakness and throat spasms since her Ozempic dose was increased last Tuesday. She reports the longer she has been on the increased dosage the more symptoms that she has had. She has not yet followed up with her doctor or let them know about the issue she has been having with the increased dosage. She denies any fevers, chest pain, shortness of breath, vomiting. She does endorse associated nausea and that she has had diarrhea for the past 2 days as well but it has stopped as of last night.. Historical: - Allergies: 03:48 Iodine; bb 03:48 Levaquin; bb 03:48 PENICILLINS; bb - Home Meds: 03:48 see list [Active]; bb - PMHx: 03:48 Diabetes - IDDM; Hypertension; Hypothyroidism; Pancreatitis; bb - PSHx: 03:48 cardiac stent; Cholecystectomy; Coronary artery bypass graft; bb - Immunization history:: Client reports having NOT received the Covid vaccine. - Social history:: Smoking status: Patient denies any tobacco usage or history of. ROS: 03:58 Constitutional: Negative for fever, chills, and weight loss, Eyes: Negative for injury, sd2 pain, redness, and discharge, Cardiovascular: Negative for chest pain, palpitations, and edema, Respiratory: Negative for shortness of breath, cough, wheezing. 03:58 MS/Extremity: Negative for injury and deformity, Skin: Negative for injury, rash, and discoloration, Neuro: Negative for headache, numbness and tingling. 03:58 Abdomen/GI: Positive for nausea, diarrhea, Negative for abdominal pain, vomiting. Exam: 03:58 Constitutional: This is a well developed, well nourished patient who is awake, alert, sd2 and in no acute distress. Head/Face: Normocephalic, atraumatic. Eyes: EOMI, normal conjunctiva bilaterally Chest/axilla: Normal chest wall appearance and motion. Nontender with no deformity. Cardiovascular: Regular rate and rhythm with a normal S1 and S2. No gallops, murmurs, or rubs. 2+ distal pulses. Respiratory: Lungs have equal breath sounds bilaterally, clear to auscultation and percussion. No rales, rhonchi or wheezes noted. No increased work of breathing, no retractions or nasal flaring. Abdomen/GI: Soft, non-tender, with normal bowel sounds. No guarding or rebound. No evidence of tenderness throughout. Skin: Warm, dry with normal turgor. Normal color with no rashes, no lesions, and no evidence of cellulitis. MS/ Extremity: Pulses equal, no cyanosis. Neurovascular intact. Full, normal range of motion. Ambulatory without difficulty. Neuro: Awake and alert, GCS 15, oriented to person, place, time, and situation. Cranial nerves II-XII grossly intact. Motor strength 5/5 in all extremities. Sensory grossly intact. Cerebellar exam normal. Normal gait. Psych: Awake, alert, with orientation to person, place and time. Behavior, mood, and affect are within normal limits. 04:18 ECG was reviewed by the Attending Physician. NSR, rate 88, occasional PVCs, no STEMI sd2 criteria Vital Signs: 03:46 BP 155 / 62; Pulse 87; Resp 16 S; Temp 98.2(O); Pulse Ox 98% on R/A; Weight 99.79 kg bb (R); Height 5 ft. 5 in. (165.10 cm) (R); Pain 0/10; 05:08 BP 134 / 50; Pulse 76; Resp 17 S; Pulse Ox 98% on R/A; as6 03:46 Body Mass Index 36.61 (99.79 kg, 165.10 cm) bb MDM: 03:50 Patient medically screened. sd2 03:58 Differential diagnosis: Dehydration, electrolyte abnormality, UTI, PNA, anemia, sd2 medication side effects among others. Data reviewed: vital signs, nurses notes. 04:54 Data reviewed: lab test result(s), EKG. Consideration of Admission/Observation sd2 Escalation of care including admission/observation considered. I considered the following discharge prescriptions or medication management in the emergency department Medications were administered in the Emergency Department. See MAR. ED course: Labs reviewed with patient. She is feeling improved. Advised to return to prior dosage of Ozempic at 0.25 to help minimize possible side effects. Pt is comfortable with this plan for discharge and verbalizes understanding of strict return precautions. . 09/25 03:58 Order name: CBC with Diff; Complete Time: 04:44 sd2 09/25 03:58 Order name: CMP; Complete Time: 04:44 sd2 09/25 03:58 Order name: Magnesium; Complete Time: 04:44 sd2 09/25 03:58 Order name: Troponin High Sensitivity; Complete Time: 04:44 sd2 09/25 03:58 Order name: Urine Microscopic Only; Complete Time: 04:44 sd2 09/25 04:23 Order name: Urine Dipstick-Ancillary; Complete Time: 04:44 EDMS 09/25 03:58 Order name: EKG - Nurse/Tech; Complete Time: 04:18 sd2 09/25 03:58 Order name: Urine Dipstick-Ancillary (obtain specimen); Complete Time: 04:18 sd2 09/25 04:35 Order name: Urine Culture EDMS Administered Medications: 04:18 Drug: NS 0.9% 1000 ml Route: IV; Rate: 1 bolus; Site: right forearm; as6 05:07 Follow up: Response: No adverse reaction; IV Status: Completed infusion; IV Intake: as6 1000ml 04:18 Drug: Zofran (Ondansetron) 4 mg Route: IVP; Site: right forearm; as6 05:08 Follow up: Response: No adverse reaction as6 Disposition Summary: 09/25/22 04:56 Discharge Ordered Location: Home sd2 Problem: new sd2 Symptoms: have improved sd2 Condition: Stable sd2 Diagnosis - Lightheadedness sd2 - Nausea sd2 - Medication side effect sd2 Followup: sd2 - With: Private Physician - When: 2 - 3 days - Reason: Recheck today's complaints, Continuance of care, Re-evaluation by your physician Discharge Instructions: - Discharge Summary Sheet sd2 - Dizziness sd2 - Nausea, Adult sd2 Forms: - Medication Reconciliation Form sd2 - Thank You Letter sd2 - Antibiotic Education sd2 - Prescription Opioid Use sd2 Signatures: Dispatcher [employer] EDMS Candis Amayanda, RN RN bb Bryant Wellington RN RN as6 Geena Bustos MD MD sd2
--- NOTE | 2022-09-25 04:57 | ER ---
Nurse's Notes [facility] Name: Laura Khanna Age: 72 yrs Sex: Female : 1950 Arrival Date: 09/25/2022 Time: 03:34 Bed 6 Private MD: Diagnosis: Lightheadedness;Nausea;Medication side effect Presentation: 09/25 03:46 Chief complaint: Patient states: her doctor upped her dose of Ozempic Tuesday a week ago bb and she has not been feeling right since midweek with dizziness, throat spasms, feels like she is going to pass out. Coronavirus screen: At this time, the client does not indicate any symptoms associated with coronavirus-19. Ebola Screen: No symptoms or risks identified at this time. Initial Sepsis Screen: Does the patient meet any 2 criteria? No. Patient's initial sepsis screen is negative. Does the patient have a suspected source of infection? No. Patient's initial sepsis screen is negative. Risk Assessment: Do you want to hurt yourself or someone else? Patient reports no desire to harm self or others. Onset of symptoms was September 22, 2022. 03:46 Method Of Arrival: Ambulatory bb 03:46 Acuity: ZACARIAS 3 bb Historical: - Allergies: 03:48 Iodine; bb 03:48 Levaquin; bb 03:48 PENICILLINS; bb - Home Meds: 03:48 see list [Active]; bb - PMHx: 03:48 Diabetes - IDDM; Hypertension; Hypothyroidism; Pancreatitis; bb - PSHx: 03:48 cardiac stent; Cholecystectomy; Coronary artery bypass graft; bb - Immunization history:: Client reports having NOT received the Covid vaccine. - Social history:: Smoking status: Patient denies any tobacco usage or history of. Screenin:28 [facility] ED Fall Risk Assessment (Adult) History of falling in the last 3 months, tw5 including since admission. Abuse screen: Denies threats or abuse. Denies injuries from another. Nutritional screening: No deficits noted. Tuberculosis screening: No symptoms or risk factors identified. Assessment: 04:28 General: Appears in no apparent distress. Behavior is calm, cooperative, appropriate tw5 for age. Pain: Denies pain. Neuro: Level of Consciousness is awake, alert, obeys commands. Respiratory: Airway is patent Trachea midline Respiratory effort is even, unlabored. 05:09 Reassessment: Patient states feeling better. Patient states symptoms have improved. as6 Vital Signs: 03:46 BP 155 / 62; Pulse 87; Resp 16 S; Temp 98.2(O); Pulse Ox 98% on R/A; Weight 99.79 kg bb (R); Height 5 ft. 5 in. (165.10 cm) (R); Pain 0/10; 05:08 BP 134 / 50; Pulse 76; Resp 17 S; Pulse Ox 98% on R/A; as6 03:46 Body Mass Index 36.61 (99.79 kg, 165.10 cm) bb ED Course: 03:34 Patient arrived in ED. [email or web address] 03:37 Geena Bustos MD is Attending Physician. sd2 03:48 Triage completed. bb 03:48 Arm band placed on Patient placed in an exam room. bb 03:50 Bryant Wellington, RN is Primary Nurse. as6 04:18 Inserted saline lock: 20 gauge in right forearm, using aseptic technique. Blood as6 collected. 04:28 Patient has correct armband on for positive identification. Placed in gown. Bed in low tw5 position. Call light in reach. explosive ordnance technician on. Pulse ox on. NIBP on. Door closed. Noise minimized. Lights dimmed. Warm blanket given. Verbal reassurance given. 04:28 No provider procedures requiring assistance completed. EKG done, by ED staff, reviewed tw5 by Geena Bustos MD. 05:08 IV discontinued, intact, bleeding controlled, No redness/swelling at site. Pressure as6 dressing applied. Administered Medications: 04:18 Drug: NS 0.9% 1000 ml Route: IV; Rate: 1 bolus; Site: right forearm; as6 05:07 Follow up: Response: No adverse reaction; IV Status: Completed infusion; IV Intake: as6 1000ml 04:18 Drug: Zofran (Ondansetron) 4 mg Route: IVP; Site: right forearm; as6 05:08 Follow up: Response: No adverse reaction as6 Medication: 05:08 VIS not applicable for this client. as6 Intake: 05:07 IV: 1000ml; Total: 1000ml. as6 Outcome: 04:56 Discharge ordered by . [email or web address] 05:08 Discharged to home ambulatory. as6 05:08 Condition: stable 05:08 Discharge instructions given to patient, Instructed on discharge instructions, follow up and referral plans. Demonstrated understanding of instructions, follow-up care. 05:09 Patient left the ED. as6 Signatures: Lyndsay Amaya, RN Clara Jackson tw5 Tisha [email or web address] Bryant Wellington RN RN as6 Geena Bustos MD MD sd2
[2022-09-25 06:46] VITALS: BP 156/110; TEMP 98.3; O2SAT 95
--- NOTE | 2022-09-27 12:43 | EKG ---
Test Date: 2022-09-25 Test Time: 04:11:38 Stunt Double: TW MEASUREMENT RESULTS: Intervals: Rate: 88 OH: 148 QRSD: 128 QT: 402 QTc: 486 [place]: P: 38 OH: 148 QRS: -59 T: 96 INTERPRETIVE STATEMENTS: Sinus rhythm with occasional premature ventricular complexes Left axis deviation Left bundle branch block Abnormal ECG Compared to ECG 08/19/2021 10:23:44 Ventricular premature complex(es) now present Electronically Signed On 09-27-22 12:37:29 PROGRAMMER OR ANALYST by Maikol Hung
== END 2022-09-25 05:09 | disposition home or self-care (01) ==
LOC: ER 03:27
DX: R42 Dizziness and giddiness (principal); R11.0 Nausea; T50.995A Adverse effect of other drugs, medicaments and biological substances, initial encounter; E11.9 Type 2 diabetes mellitus without complications; I10 Essential (primary) hypertension; Z95.1 Presence of aortocoronary bypass graft; Z95.818 Presence of other cardiac implants and grafts; Z88.0 Allergy status to penicillin; Z88.1 Allergy status to other antibiotic agents; Z91.048 Other nonmedicinal substance allergy status
CPT/HCPCS: 96361; 93005; 87088; 85025; 87086; 36415; 83735; 84484; 80053; 96374; 99284; J7030; J2405; 81003; 81015

== ENCOUNTER 2022-12-16 16:39 | Inpatient (IN) | payer OTHER ==
--- OUTSIDE RECORDS SUMMARY | 2022-12-16 16:44 | XMS REPORT | Continuity of Care Document ---
:1950 Author Organization [facility] t Address [address] [facility]. [place]. [address] [place] [address] Care Team Providers Name Role Phone Asked, No Pcp Primary Care Physician Unavailable CHEMA DELEON Attending Clinician Unavailable JOHN BURCIAGA Attending Clinician Unavailable PRESTON STUART Attending Clinician Unavailable LAB90 Attending Clinician Unavailable Atilio LR, Shanta Attending Clinician Doctor Unassigned, [place] Attending Clinician Unavailable VINCENT PATHAK Attending Clinician Unavailable John Burciaga MD Attending Clinician Erica LR, Bettie Quijano Attending Clinician [phone] Bryce LR, Inocencia Attending Clinician Chema Deleon MD Attending Clinician Only, Adc Test Attending Clinician Unavailable Ige-Odunuga_J_AH Attending Clinician Unavailable KATELYN ELLINGTON Attending Clinician Unavailable JAISON_Tulio Attending Clinician Unavailable CHEMA DELEON Admitting Clinician Unavailable JOHN BURCIAGA Admitting Clinician Unavailable SHANTA TRIMBLE Admitting Clinician Unavailable Pancho LR, Chema Hitchcock Admitting Clinician Ige-Zaidflorencia_J_AH Admitting Clinician Unavailable KATELYN ELLINGTON Admitting Clinician Unavailable ISABELLE Admitting Clinician Unavailable Payers Payer Name Policy Type Policy Number Effective Date Expiration Date Naldo WILSON Xention [id number] 2019spring 00:00:00 WELLCARE MAPS [id number] 2018 00:00:00 WELLCARE [place] 7 [id number] 2022 CLASSIC NO PREMIUM 00:00:00 R2T [place] - [id number] [place] (MEDICARE REPLACEMENT/ADVANT AGE - HMO) [place] B[place]: [id number] 2007 Vertical Acuity 00:00:00 Problems Condition Condition Condition Status Onset Resolution Last Treating Co mments Source Name Details Category Date Date Treatment Clinician Date Yeast Yeast Disease Active Lolly infection infection 3-09 Seyb old 00:00: - 00 Externa l Dermatitis Dermatitis Disease Active K elsey 1-12 Seybold 00:00: - 00 Externa l [...] on on 00:00: - 00 Externa l 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 heart heart Cardiolog without without yMoo angina angina Baradhi pectoris pectoris Class 2 Class 2 Disease Active 2021-08 [...] adult Well adult Disease Active 2021-08 K beth exam exam 0-03 Seybold 00:00: - 00 Externa l Coronary Coronary Disease Active 2021-08 Overview: Enrique macey artery artery 0-03 Formattin Seybold disease disease 00:00: g of this - involving involving 00 note Exte rna [place] might be l coronary coronary different artery of artery of from the [place] original. heart heart Cardiolog without without y- angina angina Baradhi pectoris pectoris History of History of Disease Active 2021-08 Overview : Lolly gallstones gallstones 0-03 Formattin Seybold 00:00: g of this - 00 note Externa might be l different from the original. GI-Dr. Burciaga Arthritis Arthritis Disease Active 2021-08 Los calderony 0-03 Seybold 00:00: - 00 Externa l DDD DDD Disease Active 2021-08 Lolly (degenerat (degenerat 0-03 Se ybold true disc true disc 00:00: - disease), disease), 00 Exte rna lumbar lumbar l Seasonal Seasonal Disease Active 2021-08 Losse y allergic allergic 0-03 Seybol d rhinitis rhinitis 00:00: - due to due to 00 Externa pollen pollen l Essential Essential Disease [facility] hypertensi hypertensi nce 02-05 Jacqueline kes on on 00:00: Medical 00 Center Type 2 Type [address] [facility] diabetes diabetes wae 02-05 Jacquelinekes mellitus mellitus 00:00: Medica l without without 00 Center complicati complicati on, with on, with long-term long-term current current use of use of insulin insulin Biliary Biliary Disease Active [facility] History of History of Disease Active Overview [...] Active Anaphylaxis 2021-08 Met hodi ty to 09-19 st adverse 00:00: Hospita reaction 00 l s to drug Levoflox Propensi Active Anaphylaxis 2021-08 M ethodi acin ty to 09-19 st adverse 00:00: Hospita reaction 00 l s to drug Penicill Propensi Active Anaphylaxis 2021-08 M ethodi ins ty to 09-19 adverse 00:00: Hospita reaction 00 l s to drug Kdc:[place] Propensi Active 2021-08 Lolly ow ty to 0-03 Seybold Dye+Tart adverse 00:00: - razine+L reaction 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 Iodine Propensi Active Anaphylaxis 2019-08 Increased Univers And ty to 1-19 fluid ity of Iodide adverse 00:00: retention [place] Contain[place] reaction 00 Medica l ng s Branch Products Penicill Propensi Active Shortness of 2019-08 Hives Univers ins ty to Breath 1-19 ity of adverse 00:00: [place] reaction 00 Medical s Branch IODINE DRUG Active Anaphylaxis 2019-08 Unive rs INGREDI 19 ity of 00:00: [place] 00 Medical Branch Iodine Propensi Active Anaphylaxis 2019-08 Increased Lolly ty to 1-19 fluid Seybold adverse 00:00: retention - reaction 00 Externa s l Levoflox Propensi Active Anaphylaxis 2019-08 K elsey acin ty to 1-19 Seybold adverse 00:00: - reaction 00 [...] vers ACIN INGREDI 1-19 ity of 00:00: [place] 00 [facility] PENICILL Drug Active SOB 2019-08 Univers INS Class 1-19 ity of 00:00: [address] Iodine Propensi Active Anaphylaxis 2019-08 Increased Univers And ty to -19 fluid ity of Iodide adverse 00:00: retention [place] Contain[place] reaction 00 Medica l [facility] Products Penicill Propensi Active Shortness of 2019-08 Hives Univers ins ty to Breath -19 ity of adverse 00:00: [place] reaction 00 [facility] Penicill Drug Active Anaphylaxis 2019-0 Itching, C HI [facility] ins Allergy 02-05 hives [facility] 00:00: Medical 00 [place] IODINE Allergy Active High Anaphylaxis 2019-0 [facility] AND 02-05 IODIDE 00:00: CONTAINI 00 NG PRODUCTS LEVOFLOX Allergy Active High Anaphylaxis 2019-0 [facility] ACIN 02-05 00:00: 00 PENICILL Allergy Active High Anaphylaxis 2019-0 [facility] INS 02-05 00:00: 00 Penicill Drug Active Anaphylaxis 2019-0 Itching, C [facility] ins Allergy 02-05 [facility]ives [facility] 00:00: Medical 00 [place] Iodine Drug Active Anaphylaxis 2019-[address] And Allergy 02-05 , iv and [facility] Iodide 00:00: topical Medical Containi 00 iodine, [facility] has Products steroids for premed Levoflox Drug Active Anaphylaxis 2019-[address] acin Allergy 02-05 [facility] 00:00: Medical 00 [place] NO KNOWN Drug Active Univers ALLERGIE Class ity of [facility] Family History Family Member Diagnosis Comments Start Date Stop Date Source Natural brother Brain cancer [facility] Natural brother Diabetes [facility] Natural brother Cancer [facility] Natural brother Diabetes [facility] Natural brother Heart disease [facility] Natural father Heart attack [facility] Natural father Heart disease [facility] Natural mother Heart attack [facility] Natural mother Heart disease [facility] Social History Social Habit Start Date Stop Date Quantity Comments Source Exposure to Not sure University of SARS-CoV-2 (event) [facility] Gender identity Lolly Calderon ybold - External Sexual orientation Lolly Duff - External History SDOH [facility] Alcohol Std Drinks Medica l [place] History SDOH [facility] Alcohol Binge Medical Efra[address] ter Alcohol Comment 2022-05-10 2022-05-10 rarely Lolly valenzuela - 00:00:00 00:00:00 External Education 2022-05-10 2022-05-10 16 Lolly Duff - 00:00:00 00:00:00 External History of Social 2022-05-10 2022-05-10 Lolly Teresaold - function 00:00:00 00:00:00 External Tobacco use and 2022-05-10 2022-05-10 Smokeless Lolly Calderon ybold - exposure 00:00:00 00:00:00 tobacco non-user External Alcohol intake 2021-12-25 2021-12-[address] [facility] es 00:00:00 00:00:00 non-drinker of Medical Ce nter alcohol (finding) History SDOH 2019-02-06 2019-02-[address] [facility] Alcohol Frequency 00:00:00 00:00:00 [facility] Sex Assigned At [birth year] BIA Young kes 00:00:00 00:00:00 [facility] Smoking Status Start Date Stop Date Source Never smoked tobacco Lolly Teresa rubin - External Medications Ordered Filled Start Stop Current Ordering Indication Dosage Frequency Signature Comments Components Source Medication Medication Date Date Medication? Clinician (SIG) Name Name Metformin 2022- No 1000mg Take 1 Los sey HCl 1000 MG 4-06 04-06 tablet Seybo ld oral Tablet 07:59: 00:00 (1,000 mg - 15 :00 total) by Externa mouth 2 l times daily Aspirin 81 0 Yes 81mg Take 1 Kelse y MG oral 4-06 tablet (81 Seybol d Chewable 07:52: mg total) - Tablet 52 by mouth Externa daily l Loratadine Yes 10mg Take 1 Kelse y 10 MG oral 4-06 capsule Seybol d Capsule 07:52: (10 mg - 52 total) by Externa mouth l daily Metformin Yes [id number] 1000mg Take 1 Lolly HCl 1000 MG 4-06 tablet Seybol d oral Tablet 00:00: (1,000 mg - 00 total) by Externa mouth 2 l times daily TRIMETHOPRI 2022- No [id number] 1{tbl} Take 1 Lolly M-SULFAMETH 3-31 04-06 tablet by Se ybold OXAZOLE 00:00: 00:00 mouth 2 - (BACTRIM 00 :00 times Externa DS) 800-160 daily for l MG oral 7 days Tablet TRIMETHOPRI 2022- No [id number] 1{tbl} Take 1 Lolly M-SULFAMETH -13 -06 tablet by Se ybold OXAZOLE 00:00: 00:00 mouth 2 - (BACTRIM 00 :00 times Externa DS) 800-160 daily for l MG oral 7 days Tablet Metformin Yes 1000mg Take 1,000 Lolly HCl 1000 MG 3-09 mg by Seybold oral Tablet 07:58: mouth 2 - 40 times Externa daily l Aspirin 81 Yes 81mg Take 81 mg K elsey MG oral 3-09 by mouth Seybold Chewable 07:58: daily - Tablet 40 Externa l Loratadine Yes 10mg Take 10 mg K elsey 10 MG oral 3-09 by mouth Seybo ld Capsule 07:58: daily - 40 Externa l OZEMPIC Yes [id number] .5mg Inject 0.5 Lolly (0.25 or 3-09 mg into Seybold 0.5 00:00: the skin - mg/dose) 2 00 once a Externa mg/1.5 mL week l SQ Solution Pen-Injecto r OZEMPIC Yes [id number] .5mg Inject 0.5 Lolly (0.25 or 3-09 mg into Seybold 0.5 00:00: the skin - mg/dose) 2 00 once a Externa mg/1.5 mL week l SQ Solution Pen-Injecto r Fluconazole 2022- No [id number] 150mg Take 1 Lolly 150 MG oral 10-14- tablet Seybo ld Tablet 00:00: 00:00 (150 mg - 00 :00 total) by Externa mouth once l for 1 dose Fluconazole 2022- Yes [id number] 150mg Take 1 Lolly 150 MG oral 3-09 03-10 tablet Seybo ld Tablet 00:00: 05:59 (150 mg - 00 :00 total) by Externa mouth once l for 1 dose OZEMPIC 2022- No [id number] .25mg Inject Ke lsey (0.25 or 2-20 03-09 0.25 mg Seybold 0.5 00:00: 00:00 into the - mg/dose) 2 00 :00 skin once Exte rna mg/1.5 mL a week l SQ Solution Pen-Injecto r Metformin 0 Yes 1000mg Take 1,000 Lolly HCl 1000 [...] daily - 27 Externa l OZEMPIC Yes [id number] .5mg Inject 0.5 Lolly (0.25 or 2-09 mg into Seybold 0.5 00:00: the skin - mg/dose) 2 00 once a Externa mg/1.5 mL week l SQ Solution Pen-Injecto r GlipiZIDE 2022- No 10mg Take 10 mg K elsey 10 MG oral 2-09 03-09 by mouth Seyb old TABLET SR 00:00: 00:00 daily - 24 HR 00 :00 Externa l Omeprazole 2022-0 2022- No omeprazole Lolly 40 MG oral 1-12 01-12 40 mg Seybold Delayed 08:27: 00:00 capsule,de - Release 46 :00 layed Externa Capsule release l TAKE ONE (1) CAPSULE(S) BY MOUTH ONCE A DAY. Ketoconazol Yes [id number] Apply to Lolly e 2 % apply 1-12 affected Seyb old externally 00:00: area twice - Cream 00 daily for Externa 10 days l Omeprazole 2022-0 Yes [id number] 40mg Take 1 Lolly 40 MG oral 1-12 capsule Seybol d Delayed 00:00: (40 mg - Release 00 total) by Externa Capsule mouth l daily Ketoconazol 2022-0 Yes [id number] Apply to Lolly e 2 % apply 1-12 affected Seyb old externally 00:00: area twice - Cream 00 daily for Externa 10 days l Omeprazole 2023-0 Yes [id number] 40mg Take 1 Lolly 40 MG oral 1-12 capsule Seybol d Delayed 00:00: (40 mg - Release 00 total) by Externa Capsule mouth l daily Ketoconazol Yes [id number] Apply to Lolly e 2 % apply 1-12 affected Seyb old externally 00:00: area twice - Cream 00 daily for Externa 10 days l Omeprazole 0 Yes [id number] 40mg Take 1 Lolly 40 MG oral 1-12 capsule Seybol d Delayed 00:00: (40 mg - Release 00 total) by Externa Capsule mouth l daily OZEMPIC Yes [id number] .25mg Inject Los sey (0.25 or 1-12 0.25 mg Seybold 0.5 00:00: into the - mg/dose) 2 00 skin once Exte rna mg/1.5 mL a week l SQ Solution Pen-Injecto r Ketoconazol Yes [id number] Apply to Lolly e 2 % apply 1-12 affected Seyb old externally 00:00: area twice - Cream 00 daily for Externa 10 days l Omeprazole Yes [id number] 40mg Take 1 Lolly 40 MG oral 1-12 capsule Seybol d Delayed 00:00: (40 mg - Release total) by Externa Capsule mouth l daily OZEMPIC 2022- No [id number] .25mg Inject Ke lsey (0.25 or 1-12 02-09 0.25 mg Seybold 0.5 00:00: 00:00 into the - mg/dose) 2 00 :00 skin once Exte rna mg/1.5 mL a week l SQ Solution Pen-Injecto r Insulin Yes Tresiba Lolly Degludec 1-04 FlexTouch Seybol d (Tresiba 00:00: U-200 - FlexTouch) 00 insulin 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 loratadine 2021-08 Yes 10mg QD Take 1 [...] 2021-08 Yes 1000mg Q.5D Take 1 Meth jeninfer (GLUCOPHAGE 2-[address] ) 1,000 mg [...] l INSULIN (two) SUBQ) times a day. Atorvastati 2021-08 Yes [id number] atorvastat Lolly vidal Calcium -03 in 80 mg Seybol d 80 MG oral 00:00: tablet - Tablet 00 TAKE ONE Externa (1) l TABLET(S) BY MOUTH ONCE A DAY AT BEDTIME. Amlodipine 2021-08 Yes [id number] 10mg Take 1 K elsey Besylate 10 03 tablet (10 Se ybold MG oral 00:00: mg total) - Tablet 00 by mouth Externa daily l Irbesartan 2021-08 Yes [id number] 300mg Take 1 Lolly 300 MG oral 1-03 tablet Seybol d Tablet 00:00: (300 mg - 00 total) by Externa mouth l nightly Atorvastati 2021-08 Yes [id number] atorvastat Lolly n Calcium 1-03 in 80 mg Seybol d 80 MG oral 00:00: tablet - Tablet 00 TAKE ONE Externa (1) l TABLET(S) BY MOUTH ONCE A DAY AT BEDTIME. Amlodipine 2021-08 Yes [id number] 10mg Take 1 K elsey Besylate 10 1-03 tablet (10 Se ybold MG oral 00:00: mg total) - Tablet 00 by mouth Externa daily l Irbesartan 2021-08 Yes [id number] 300mg Take 1 Lolly 300 MG oral 1-03 tablet Seybol d Tablet 00:00: (300 mg - 00 total) by Externa mouth l nightly Atorvastati 2021-08 Yes [id number] atorvastat Lolly n Calcium 1-03 in 80 mg Seybol d 80 MG oral 00:00: tablet - Tablet 00 TAKE ONE Externa (1) l TABLET(S) BY MOUTH ONCE A DAY AT BEDTIME. Amlodipine 2021-08 Yes [id number] 10mg Take 1 K elsey Besylate 10 1-03 tablet (10 Se ybold MG oral 00:00: mg total) - Tablet 00 by mouth Externa daily l Irbesartan 2021-08 Yes [id number] 300mg Take 1 Lolly 300 MG oral 1-03 tablet Seybol d Tablet 00:00: (300 mg - 00 total) by Externa mouth l nightly Atorvastati 2021-08 Yes [id number] atorvastat Lolly n Calcium 1-03 in 80 mg Seybol d 80 MG oral 00:00: tablet - Tablet 00 TAKE ONE Externa (1) l TABLET(S) BY MOUTH ONCE A DAY AT BEDTIME. Amlodipine 2021-08 Yes [id number] 10mg Take 1 K elsey Besylate 10 1-03 tablet (10 Se ybold MG oral 00:00: mg total) - Tablet 00 by mouth Externa daily l Irbesartan 2021-08 Yes [id number] 300mg Take 1 Lolly 300 MG oral 1-03 tablet Seybol d Tablet 00:00: (300 mg - 00 total) by Externa mouth l nightly Levothyroxi 2021-08 Yes [id number] 75ug Take 1 Lolly ne Sodium 0-12 tablet (75 Seyb old 75 MCG oral 00:00: mcg total) - Tablet 00 by mouth Externa daily l Levothyroxi 2021-08 Yes [id number] 75ug Take 1 Lolly ne Sodium 0-12 tablet (75 Seyb old 75 MCG oral 00:00: mcg total) - Tablet 00 by mouth Externa daily l Levothyroxi 2021-08 Yes [id number] 75ug Take 1 Lolly ne Sodium 0-12 tablet (75 Seyb old 75 MCG oral 00:00: mcg total) - Tablet 00 by mouth Externa daily l GlipiZIDE 2021-08 Yes [id number] 10mg Take 1 Ke lsey 10 MG oral 0-12 tablet (10 Sey bold TABLET SR 00:00: mg total) - 24 HR 00 by mouth Externa daily l Levothyroxi 2021-08 Yes [id number] 75ug Take 1 Lolly ne Sodium 0-12 tablet (75 Seyb old 75 MCG oral 00:00: mcg total) - Tablet 00 by mouth Externa daily l GlipiZIDE 2021-08- No [id number] 10mg Take 1 K elsey 10 MG [...] (Tresiba 08:17: U-200 - FlexTouch) 34 insulin 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 200 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/ML 200 l subcutaneou unit/mL [...] - 34 Externa l Ibuprofen 2021-08 Yes [id number] 600mg Q.[id number] Take 1 Lolly 600 MG oral 0-03 [id number] tablet Seybold Tablet 00:00: 3D (600 mg - 00 total) by Externa mouth l every 8 hours as needed for pain FLUTICASONE 2021-08 Yes [id number] 50ug Use 1 K elsey PROPIONATE, 0-03 spray (50 Sey bold NASAL, 50 00:00: mcg total) - MCG/ACT 00 in each Externa nasal nostril l Suspension daily Cetirizine 2021-08 Yes [id number] 10mg Take 1 K elsey HCl (ZyrTEC 0-03 capsule Seybo ld Allergy) 10 00:00: (10 mg - MG oral 00 total) by Externa Capsule mouth l daily Ibuprofen 2021-08 Yes [id number] 600mg Q.[id number] Take 1 Lolly 600 MG oral 0-03 [id number] tablet Seybold Tablet 00:00: 3D (600 mg - 00 total) by Externa mouth l every 8 hours as needed for pain FLUTICASONE 2021-08 Yes [id number] 50ug Use 1 K elsey PROPIONATE, 0-03 spray (50 Sey bold NASAL, 50 00:00: mcg total) - MCG/ACT 00 in each Externa nasal nostril l Suspension daily Cetirizine 2021-08 Yes [id number] 10mg Take 1 K elsey HCl (ZyrTEC 0-03 capsule Seybo ld Allergy) 10 00:00: (10 mg - MG oral 00 total) by Externa Capsule mouth l daily Ibuprofen 2021-08 Yes [id number] 600mg Q.[id number] Take 1 Lolly 600 MG oral 0-03 [id number] tablet Seybold Tablet 00:00: 3D (600 mg - 00 total) by Externa mouth l every 8 hours as needed for pain FLUTICASONE 2021-08 Yes [id number] 50ug Use 1 K elsey PROPIONATE, 0-03 spray (50 Sey bold NASAL, 50 00:00: mcg total) - MCG/ACT 00 in each Externa nasal nostril l Suspension daily Cetirizine 2021-08 Yes [id number] 10mg Take 1 K elsey HCl (ZyrTEC 0-03 capsule Seybo ld Allergy) 10 00:00: (10 mg - MG oral 00 total) by Externa Capsule mouth l daily Ibuprofen 2021-08 Yes [id number] 600mg Q.[id number] Take 1 Lolly 600 MG oral 0-03 [id number] tablet Seybold Tablet 00:00: 3D (600 mg - 00 total) by Externa mouth l every 8 hours as needed for pain FLUTICASONE 2021-08 Yes [id number] 50ug Use 1 K elsey PROPIONATE, 0-03 spray (50 Sey bold NASAL, 50 00:00: mcg total) - MCG/ACT 00 in each Externa nasal nostril l Suspension daily Cetirizine 2021-08 Yes [id number] 10mg Take 1 K elsey HCl (ZyrTEC 0-03 capsule Seybo ld Allergy) 10 00:00: (10 mg - MG oral 00 total) by Externa Capsule mouth l daily Ibuprofen 2021-08 Yes [id number] 600mg Q.[id number] Take 1 Lolly 600 MG oral 0-03 [id number] tablet Seybold Tablet 00:00: 3D (600 mg - 00 total) by Externa mouth l every 8 hours as needed for pain FLUTICASONE 2021-08 Yes [id number] 50ug Use 1 K elsey PROPIONATE, 0-03 spray (50 Sey bold NASAL, 50 00:00: mcg total) - MCG/ACT 00 in each Externa nasal nostril l Suspension daily Cetirizine 2021-08 Yes [id number] 10mg Take 1 K elsey HCl (ZyrTEC [...] 19:11: mouth Medical tablet 36 nightly . [place] omeprazole Yes 40mg QD Take 40 mg [...] MG 19:11: daily . Medical tablet 36 [place] aspirin 81 Yes 81mg QD Take 81 [...] (TRESIBA 19:11: subcutaneo Med ical U-100 36 [facility] 2 [place] INSULIN (two) SUBQ) times daily. irbesartan Yes 300mg QD Take [address] (AVAPRO) 5-19 mg by [facility] 300 MG 19:11: mouth Medical tablet 36 nightly . [place] omeprazole Yes 40mg QD Take 40 mg [...] MG 19:11: daily . Medical tablet 36 [place] aspirin 81 0 Yes 81mg QD Take [...] morning on tablet an empty stomach. metFORMIN 2022-0 Yes 1000mg Take 1,[address] (GLUMETZA) [...] tablet 19:11: daily. Medical 36 Center glipiZIDE 0 Yes 5mg QD Take 5 mg [facility] [...] (TRESIBA 19:11: subcutaneo Med ical U-100 36 [facility] 2 Center INSULIN (two) SUBQ) times daily. omeprazole Yes 40mg Take 40 mg U nivers 40 mg 3-03 by mouth ity of capsule 16:56: at [place] [address] bedtime. Medical Branch irbesartan 0 Yes 300mg Take 300 Un jeffry 300 mg 3-03 mg by ity of tablet 16:56: mouth at [place] [address] bedtime. Medical Branch metFORMIN 0 Yes 1000mg Take 1,000 Univers 1,000 mg 24 3-03 mg by ity of hr tablet 16:56: mouth [place] [address] daily with Medical breakfast. Branch insulin Yes 56U inject 56 Unive rs detemir 3-03 Units ity of U-100 100 16:56: under the [place] as unit/mL 41 skin. Medical injection Branch amLODIPine Yes 10mg Take 10 mg U nivers 10 mg 3-03 by mouth ity of tablet 16:56: every [place] [address] morning. Medical Branch aspirin 81 Yes 81mg Take 81 mg U nivers mg chewable 3-03 by mouth ity of tablet 16:56: daily. [place] [address] Medical Branch atorvastati Yes 80mg Take 80 mg Univers n 80 mg 3-03 by mouth ity of tablet 16:56: daily. [place] [address] Medical Branch levothyroxi Yes 75ug Take 75 Uni vers ne 100 mcg 3-03 mcg by ity of tablet 16:56: mouth. [place] [address] Medical Branch amLODIPine 2019-08 Yes 10mg Take 10 mg U nivers 10 mg 1-23 by mouth ity of tablet 14:22: every [place] [address] morning. Medical Branch aspirin 81 2019-08 Yes 81mg Take 81 mg U nivers mg chewable 1-23 by mouth ity of tablet 14:22: daily. [place] [address] Medical Branch atorvastati 2019-08 Yes 80mg Take 80 mg Univers n 80 mg 1-23 by mouth ity of tablet 14:22: daily. [place] [address] Medical Branch levothyroxi 2019-08 Yes 75ug Take 75 Uni vers ne 100 mcg 1-23 mcg by ity of tablet 14:22: mouth. [place] [address] Medical Branch omeprazole 2019-08 Yes 40mg Take 40 mg U nivers 40 mg 1-23 by mouth ity of capsule 14:22: at [place] [address] bedtime. Medical Branch irbesartan 2019-08 Yes 300mg Take 300 Un jeffry 300 mg 1-23 mg by ity of tablet 14:22: mouth at [place] [address] bedtime. Medical Branch metFORMIN 2019-08 Yes 1000mg Take 1,000 Univers 1,000 mg 24 1-23 mg by ity of hr tablet 14:22: mouth [place] [address] daily with Medical breakfast. Branch insulin 2019-08 Yes 56U inject 56 Unive rs detemir 1-23 Units ity of U-100 100 14:22: under the [place] as unit/mL 13 skin. Medical injection Branch amLODIPine 2019-08 Yes 10mg Take 10 mg U nivers 10 mg 1-23 by mouth ity of tablet 14:22: every [place] [address] morning. Medical Branch aspirin 81 2019-08 Yes 81mg Take 81 mg U nivers mg chewable 1-23 by mouth ity of tablet 14:22: daily. [place] [address] Medical Branch atorvastati 2019-08 Yes 80mg Take 80 mg Univers n 80 mg 1-23 by mouth ity of tablet 14:22: daily. [place] [address] Medical Branch levothyroxi 2019-08 Yes 75ug Take 75 Uni vers ne 100 mcg 1-23 mcg by ity of tablet 14:22: mouth. [place] [address] Medical Branch omeprazole 2019-08 Yes 40mg Take 40 mg U nivers 40 mg 1-23 by mouth ity of capsule 14:22: at [place] [address] bedtime. Medical Branch irbesartan 2019-08 Yes 300mg Take 300 Un jeffry 300 mg 1-23 mg by ity of tablet 14:22: mouth at [place] [address] bedtime. Medical Branch metFORMIN 2019-08 Yes 1000mg Take 1,000 Univers 1,000 mg 24 1-23 mg by ity of hr tablet 14:22: mouth [place] [address] daily with Medical breakfast. Branch insulin 2019-08 Yes 56U inject 56 Unive rs detemir 1-23 Units ity of U-100 100 14:22: under the [place] as unit/mL 13 skin. Medical injection Branch lactated 2019-08 Yes 1000mL at 75 Univer s ringers IV 1-23 mL/hr, ity of infusion 14:00: 1,000 mL, [place] 1,000 mL 00 IV Medical Infusion, Branch CONTINUOUS , Starting Tue06/30/20 at 0800, Until Discontinu ed, Routine, PACU ondansetron 2019-08 Yes 4mg 4 mg, Slow Univers (ZOFRAN 1-23 IV Push, ity of (PF)) 13:57: PRN, 1 [place] injection 4 11 dose, Medical mg Starting Branch Tue06/30/20 at 0757, Until Discontinu ed, Routine, Nausea and Vomiting (N/V), PACU triamcinolo 2019-08 Yes PRN, Univer s ne 1-23 Starting ity of acetonide 13:35: [facility] (KENALOG) 00 06/30/20 Medica l injection at 0735, Branch Until Discontinu ed, Routine, Intra-op iohexoL 2019-08 Yes PRN, Univers (OMNIPAQUE 08-30 Starting ity o f 350 BULK-50 13:35: Mon [place] mL) 00 06/30/20 Medical injection at 0735, Branch Until Discontinu ed, Routine, Intra-op bupivacaine 2019-08 Yes PRN, Univer s (preserv 08-30 Starting ity of free) 13:35: Mon [place] (SENSORCAIN 06/30/20 Medi mookie E MPF) 0.25 at 0735, Bran ch % (2.5 Until mg/mL) Discontinu injection ed, Routine, Intra-op lidocaine 2019-08 Yes PRN, Univers 1% 08-30 Starting ity of (XYLOCAINE) 13:34: Mon [place] 10 mg/mL (1 06/30/20 Medi mookie %) at 0734, Branch injection Until Discontinu ed, Routine, Intra-op lactated 2019-08 2020- [facility] 08-30 11-23 mL/hr, ity of infusion 13:00: 13:11 1,000 mL, [place] as 1,000 mL 00 :00 IV Medical Infusion, [place] ONCE, 1 dose, [facility] 06/30/20 at 0700, Routine, DSU Pre-op irbesartan 2019-08 Yes 300mg Take 300 Un jeffry 300 mg 1-19 mg by ity of tablet 21:00: mouth at [place] 24 bedtime. Medical Branch metFORMIN 2019-08 Yes 1000mg Take 1,000 Univers 1,000 mg 24 1-19 mg by ity of hr tablet 21:00: mouth [place] 24 daily with Medical breakfast. Branch insulin 2019-08 Yes 56U inject 56 Unive rs detemir 1-19 Units ity of U-100 100 21:00: under the [place] as unit/mL 24 skin. Medical injection Branch aspirin 81 2019-08 Yes 81mg Take 81 mg U nivers mg chewable 1-19 by mouth ity of tablet 21:00: daily. [address] Branch atorvastati 2019-08 Yes 80mg Take 80 mg Univers n 80 mg 1-19 by mouth ity of tablet 21:00: daily. [address] levothyroxi 2019-08 Yes 75ug Take 75 Uni vers ne 100 mcg 1-19 mcg by ity of tablet 21:00: mouth. [place] 23 Medical Branch omeprazole 2019-08 Yes 40mg Take 40 mg U nivers 40 mg 1-19 by mouth ity of capsule 21:00: at [place] [id number] bedtime. Medical Branch amLODIPine 2019-08 Yes 10mg Take 10 mg U nivers 10 mg 1-19 by mouth ity of tablet 20:54: every [place] [address] morning. Medical Branch Vital Signs Vital Name Observation Time Observation Value Comments Source HEIGHT 2020-12-25 07:38:00 165.1 cm WEIGHT 2020-12-25 07:38:00 104.237 kg WEIGHT 2020-12-23 12:01:00 105.688 kg HEIGHT 2020-12-23 12:01:00 165.1 cm Systolic blood 2022-11-11 12:49:00 166 mm[Hg] Lolly Seybold - pressure External Diastolic blood 2022-11-11 12:49:00 74 mm[Hg] Losse y Seybold - pressure External Heart rate 2022-11-11 12:49:00 108 /min Lolly Naldo eybold - External Body temperature 2022-11-11 12:49:00 35.89 Carmen Karissa ey Seybold - External Respiratory rate 2022-11-11 12:49:00 15 /min Karissa ey Seybold - External Body height 2022-11-11 12:49:00 165.1 cm Lolly S eybold - External Body weight 2022-11-11 12:49:00 97.523 kg Lolly Hitchcock eybold - External BMI 2022-11-11 12:49:00 35.78 kg/m2 Lolly S eybold - External Systolic blood 2022-10-14 13:54:00 172 mm[Hg] Lolly Seybold - pressure External Diastolic blood 2022-10-14 13:54:00 78 mm[Hg] Kelse y Seybold - pressure External Heart rate 2022-10-14 13:54:00 75 /min Lolly S eybold - External Body temperature 2022-10-14 13:54:00 35.89 Carmen Karissa ey Seybold - External Respiratory rate 2022-10-14 13:54:00 15 /min Karissa ey Seybold - External Body height 2022-10-14 13:54:00 165.1 cm Lolly S eybold - External Body weight 2022-10-14 13:54:00 101.606 kg Lolly S eybold - External BMI 2022-10-14 13:54:00 37.28 kg/m2 Lolly S eybold - External Systolic blood 2022-09-16 13:45:00 150 mm[Hg] Lolly Seybold - pressure External Diastolic blood 2022-09-16 13:45:00 80 mm[Hg] Losse y Seybold - pressure External Heart rate 2022-09-16 13:45:00 85 /min Lolly S eybold - External Body temperature 2022-09-16 13:45:00 35.5 Carmen Karissa ey Seybold - External Respiratory rate 2022-09-16 13:45:00 15 /min Karissa woods Seybold - External Body height 2022-09-16 13:45:00 165.1 cm Lolly Hitchcock eybold - External Body weight 2022-09-16 13:45:00 104.327 kg Lolly Hitchcock eybold - External BMI 2022-09-16 13:45:00 38.27 kg/m2 Lolly Hitchcock eybold - External Body height 2022-08-19 14:02:00 165.1 cm Lolly Hitchcock eybold - External Body weight 2022-08-19 14:02:00 105.507 kg Lolly Hitchcock eybold - External BMI 2022-08-19 14:02:00 38.71 kg/m2 Lolly Hitchcock eybold - External Oxygen saturation in 2022-08-19 14:02:00 99 /min Lolly Duff - Arterial blood by External Pulse oximetry Systolic blood 2022-08-19 14:02:00 145 mm[Hg] Lolly Caldeornybold - pressure External Diastolic blood 2022-08-19 14:02:00 83 mm[Hg] Perlita y Seybold - pressure External Heart rate 2022-08-19 14:02:00 78 /min Lolly S eybold - External Body temperature 2022-08-19 14:02:00 36.61 Carmen Karissa ey Seybold - External Respiratory rate 2022-08-19 14:02:00 15 /min Karissa ey Seybold - External Systolic blood 2022-05-10 13:06:00 144 mm[Hg] Lolly Duff - pressure External Diastolic blood 2022-05-10 13:06:00 82 mm[Hg] Perlita Duff - pressure External Heart rate 2022-05-10 13:06:00 98 /min Lolly woodsbold - External Body temperature 2022-05-10 13:06:00 36.28 Carmen Karissa woods Seybold - External Respiratory rate 2022-05-10 13:06:00 16 /min Karissa Duff - External Body height 2022-05-10 13:06:00 165.1 cm Lolly woodsbold - External Body weight 2022-05-10 13:06:00 105.235 kg Lolly woodsbold - External BMI 2022-05-10 13:06:00 38.61 kg/m2 [...] 14:00:00 123 mm[Hg] Univer sity of pressure [facility] Diastolic blood 2020-06-30 14:00:00 67 mm[Hg] Unive rsity of pressure [place] [facility] Heart rate 2020-06-30 14:00:00 71 /min [facility] [place] [facility] Body temperature 2020-06-30 14:00:00 36.67 Carmen Univ ersity of [facility] Branch Respiratory rate 2020-06-30 14:00:00 18 /min Univ [facility] [place] [facility] Oxygen saturation in 2020-06-30 14:00:00 95 /min University of Arterial blood by [facility] Pulse oximetry Branch Body height 2020-06-27 18:02:00 165.1 cm [facility] [place] [facility] Body weight 2020-06-27 18:02:00 102.1 kg [facility] [place] [facility] BMI 2020-06-27 18:02:00 37.46 kg/m2 [facility] [place] [facility] Systolic blood 2020-06-30 14:00:00 123 mm[Hg] Univer sity of pressure [place] [facility] Diastolic blood 2020-06-30 14:00:00 67 mm[Hg] Unive rsity of pressure [facility] Branch Heart rate 2020-06-30 14:00:00 71 /min [facility] [place] [facility] Body temperature 2020-06-30 14:00:00 36.67 Carmen Univ [facility] [place] [facility] Respiratory rate 2020-06-30 14:00:00 18 /min Univ [facility] [place] [facility] Oxygen saturation in 2020-06-30 14:00:00 95 /min University of Arterial blood by [facility] Pulse oximetry Branch Body height 2020-06-27 18:02:00 165.1 cm [facility] [place] [facility] Body weight 2020-06-27 18:02:00 102.1 kg [facility] [place] [facility] BMI 2020-06-27 18:02:00 37.46 kg/m2 [facility] [place] [facility] Systolic blood 2022-07-20 02:00:00 152 mm[Hg] Method ist [facility] pressure Diastolic blood 2022-07-20 02:00:00 66 mm[Hg] [facility] pressure Heart rate 2022-07-20 02:00:00 72 /min Methodis t [facility] Respiratory rate 2022-07-20 02:00:00 14 /min [facility] Oxygen saturation in 2022-07-20 02:00:00 97 /min [facility] Arterial blood by Pulse oximetry Body temperature 2022-07-19 22:30:00 36.22 Camren [facility] Body height 2022-07-19 19:16:[address] [facility] Body weight 2022-07-19 19:16:[address] [facility] BMI 2022-07-19 19:16:00 37.99 kg/m2 [facility] Systolic blood 2021-12-24 18:35:00 141 mm[Hg] [facility] Diastolic blood 2021-12-24 18:35:00 60 mm[Hg] [facility] Heart rate 2021-12-24 18:35:00 74 /min [facility] Body temperature 2021-12-24 18:35:00 36.56 Carmen [facility] Respiratory rate 2021-12-24 18:35:00 16 /min [facility] Oxygen saturation in 2021-12-24 18:35:00 92 /min [facility] Arterial blood by Medical Ce nter Pulse oximetry Body height 2021-12-24 13:30:00 165.1 cm [facility] Body weight 2021-12-24 13:30:00 104.327 kg [facility] BMI 2021-12-24 13:30:00 38.27 kg/m2 [facility] Procedures Procedure Date / Time Performing Source Performed Clinician POC GLUCOSE 2022-07-19 22:38:00 Shanta Trimbletal CV LEFT HEART CATH LV GRAM 2022-07-19 22:17:[address] [facility] WITH CORS ESTIMATED GFR 2022-07-19 20:27:00 Shanta Trimble spital POC PANEL 2022-07-19 20:27:00 Shanta rTimble spital CBC WITH PLATELET AND 2022-07-19 20:22:00 Shanta Trimble [facility] DIFFERENTIAL POC GLUCOSE 2022-07-19 19:14:00 Shanta Trimble spital ECG PRE/POST OP 2022-07-19 18:52:15 Shanta Trimble spital QUANTAFLO 2022-05-10 13:29:52 Preston Stuart Sejoseyun ld - External INSURANCE CORRESPONDENCE 2022-03-03 05:01:00 Doctor Unassigned, [facility] [place] [facility] [place] REPORT OF PROCEDURE - 2021-12-24 17:40:33 Jonh Burciaga [facility] [place] ERCP 2021-12-24 17:40:00 John Burciaga [facility] ENDOSCOPIC RETROGRADE 2021-12-24 17:13:00 [facility] CHOLANGIOPANCREATOGRAPHY, [facility] WITH DIRECT DUCT VISUALIZATION, USING PANCREATICOBILIARY FIBEROPTIC PROBE PROCEDURE W/ C-ARM 2021-12-24 17:13:00 John Burciaga [facility] POCT-GLUCOSE METER 2021-12-24 14:20:00 John Burciaga [facility] CBC WITH DIFF 2020-06-30 13:02:00 Chema Deleon [facility] POCT GLUCOSE(AGE >30DAYS) 2020-06-30 12:55:00 [facility] 2020-06-30 06:01:00 Doctor Unassigned, [facility] [place] [facility] Plan of Care Planned Activity Planned Date Details Comments Source Future Scheduled 2023-04-[address] [facility] 00:00:00 (Season Ended) [code = Medic al Center INFLUENZA VACCINE (Season Ended)] Future Scheduled 2023-04-[address] [facility] 00:00:00 (Season Ended) [code = Medic al Center INFLUENZA VACCINE (Season Ended)] Future Scheduled 2022-12-[address] [...] [facility] Test 00:00:00 measurement (procedure) [facility] [code = 95940963] Future Scheduled 2019-02-[address] [facility] 00:00:00 measurement (procedure) [facility] [code = 96558411] Future Scheduled 2019-02-[address] [facility] 00:00:00 measurement (procedure) [facility] [code = 10597647] Future Scheduled 2019-02-[address] [facility] 00:00:00 measurement (procedure) [facility] [code = 68682205] Future Scheduled 2019-02-[address] [facility] Test 00:00:00 measurement (procedure) [facility] [code = 39360951] Future Scheduled 1999 SHINGLES VACCINES (1 of [...] 00:00:00 examination Medical Center (regime/therapy) [code = 518002100] Future Scheduled 1959 Urine screening for [facility] 00:00:00 protein (procedure) Medical Center [code = 079608788] Future Scheduled 1959 DIABETIC EYE EXAM [code [facility] 00:00:00 = DIABETIC EYE EXAM] Medical Center Future Scheduled [address] [facility] Test 00:00:00 examination Medical Center (regime/therapy) [code = 511389337] Future Scheduled 1959 Urine screening for [facility] 00:00:00 protein (procedure) Medical Center [code = 195734208] Future Scheduled 1959 DIABETIC EYE EXAM [code [facility] 00:00:00 = DIABETIC EYE EXAM] Medical Center Future Scheduled [address] [facility] 00:00:00 examination Medical Center (regime/therapy) [code = 504050532] Future Scheduled 1959 Urine screening for [facility] 00:00:00 protein (procedure) Medical Center [code = 734284421] Future Scheduled 1959 DIABETIC EYE EXAM [code [facility] 00:00:00 = DIABETIC EYE EXAM] Medical Center Future Scheduled [address] [facility] Test 00:00:00 examination Medical Center (regime/therapy) [code = 791190627] Future Scheduled 1959 Urine screening for [facility] 00:00:00 protein (procedure) Medical Center [code = 257187631] Future Scheduled 1959 DIABETIC EYE EXAM [code [facility] 00:00:00 = DIABETIC EYE EXAM] Medical Center Future Scheduled [address] [facility] Test 00:00:00 examination Medical Center (regime/therapy) [code = 359986878] Future Scheduled 1959 Urine screening for [facility] 00:00:00 protein (procedure) Medical Center [code = 460662472] Future Scheduled 1949 COVID-19 VACCINE (#1) CH [...] breast Medical C enter (procedure) [code = 814007388] Future Scheduled 1949 CT Colonography (combo) [facility] 00:00:00 [code = CT Colonography [facility] (combo)] Future Scheduled 1949 Screening for malignant [facility] 00:00:00 neoplasm of colon Medical Ce nter (procedure) [code = 341794507] Future Scheduled 1949 Screening for malignant [facility] Test 00:00:00 neoplasm of colon Medical Ce nter (procedure) [code = 653652629] Future Scheduled 1949 DXA SCAN [code = DXA [facility] 00:00:00 SCAN] [facility] Future Scheduled 1949 Screening for malignant [facility] 00:00:00 neoplasm of colon Medical Ce nter (procedure) [code = 641709830] Future Scheduled 1949 Screening for malignant [facility] 00:00:00 neoplasm of colon Medical Ce nter (procedure) [code = 865178872] Future Scheduled 1949 Sigmoidoscopy [code = [facility] Sigmoidoscopy] [facility] Future Scheduled 1949 Screening for malignant [facility] Test 00:00:00 neoplasm of breast Medical C enter (procedure) [code = 153958394] Future Scheduled 1949 CT Colonography (combo) [facility] Test 00:00:00 [code = CT Colonography [facility] (combo)] Future Scheduled 1949 Screening for malignant [facility] Test 00:00:00 neoplasm of colon Medical Ce nter (procedure) [code = 696940277] Future Scheduled 1949 Screening for malignant [facility] 00:00:00 neoplasm of colon Medical Ce nter (procedure) [code = 259648679] Future Scheduled 1949 DXA SCAN [code = DXA [facility] 00:00:00 SCAN] [facility] Future Scheduled 1949 Screening for malignant [facility] 00:00:00 neoplasm of colon Medical Ce nter (procedure) [code = 224047921] Future Scheduled 1949 Screening for malignant [facility] 00:00:00 neoplasm of colon Medical Ce nter (procedure) [code = 691726206] Future Scheduled 1949 Sigmoidoscopy [code = [facility] 00:[facility] Sigmoidoscopy] [facility] Future Scheduled 1949 Screening for malignant [facility] Test 00:00:00 neoplasm of breast Medical C enter (procedure) [code = 355518397] Future Scheduled 1949 CT Colonography (combo) [facility] 00:00:00 [code = CT Colonography [facility] (combo)] Future Scheduled 1949 Screening for malignant [facility] Test 00:00:00 neoplasm of colon Medical Ce nter (procedure) [code = 926390352] Future Scheduled 1949 Screening for malignant [facility] Test 00:00:00 neoplasm of colon Medical Ce nter (procedure) [code = 930039119] Future Scheduled 1949 DXA SCAN [code = DXA [facility] 00:00:00 SCAN] [facility] Future Scheduled 1949 Screening for malignant [facility] 00:00:00 neoplasm of colon Medical Ce nter (procedure) [code = 702491512] Future Scheduled 1949 Screening for malignant [facility] 00:00:00 neoplasm of colon Medical Ce nter (procedure) [code = 790753063] Future Scheduled 1949 Sigmoidoscopy [code = [facility] 00:[facility]:00 Sigmoidoscopy] [facility] Future Scheduled 1949 Screening for malignant [facility] 00:00:00 neoplasm of breast Medical C enter (procedure) [code = 187677255] Future Scheduled 1949 CT Colonography (combo) [facility] 00:00:00 [code = CT Colonography [facility] (combo)] Future Scheduled 1949 Screening for malignant [facility] 00:00:00 neoplasm of colon Medical Ce nter (procedure) [code = 055309329] Future Scheduled 1949 Screening for malignant [facility] 00:00:00 neoplasm of colon Medical Ce nter (procedure) [code = 269683463] Future Scheduled 1949 DXA SCAN [code = DXA [facility] Test 00:00:00 SCAN] [facility] Future Scheduled 1949 Screening for malignant [facility] 00:00:00 neoplasm of colon Medical Ce nter (procedure) [code = 409282057] Future Scheduled 1949 Screening for malignant [facility] Test 00:00:00 neoplasm of colon Medical Ce nter (procedure) [code = 247414513] Future Scheduled 1949 Sigmoidoscopy [code = [facility] 00:[facility] Sigmoidoscopy] Medical Cente r Future Scheduled 1949 Screening for malignant [facility] 00:00:00 neoplasm of breast Medical C enter (procedure) [code = 460363752] Future Scheduled 1949 CT Colonography (combo) [facility] 00:00:00 [code = CT Colonography [facility] (combo)] Future Scheduled 1949 Screening for malignant [facility] 00:00:00 neoplasm of colon Medical Ce nter (procedure) [code = 406807613] Future Scheduled 1949 Screening for malignant [facility] Test 00:00:00 neoplasm of colon Medical Ce nter (procedure) [code = 031060740] Future Scheduled 1949 DXA SCAN [code = DXA [facility] 00:00:00 SCAN] [facility] Future Scheduled 1949 Screening for malignant [facility] Test 00:00:00 neoplasm of colon Medical Ce nter (procedure) [code = 484447124] Future Scheduled 1949 Screening for malignant [facility] Test 00:00:00 neoplasm of colon Medical Ce nter (procedure) [code = 084440105] Future Scheduled 1949 Sigmoidoscopy [code = [facility] 00:[facility] Sigmoidoscopy] Medical Cente r Encounters Start End Encounter Admission Attending Care Care Encounter Source Date/Time Date/Time Type Type Clinicians Facility Department ID 2021-06-06 Outpatient JENNIFER MIMS [id number] [facility] 06:09:27 CHEMA [facility] 2021-05-16 Outpatient ROZINA BURCIAGA Surgery [id number] [facility] 21:10:52 JOHN 2023-02-11 2023-02-11 Outpatient LOLLY STUART [id number] Lolly 08:00:00 08:00:00 PRESTON Seybol d 2022-12-14 2022-12-14 Outpatient PREZAS, LOLLY PACE [id number] Lolly 00:00:00 00:00:00 PRESTON Seybol d 2022-12-08 2022-12-08 Outpatient PREZAS, LOLLY PACE [id number] Lolly 00:00:00 00:00:00 PRESTON Seybol d 2022-11-25 2022-11-25 Outpatient PREZAS, LOLLY PACE [id number] Lolly 00:00:00 00:00:00 PRESTON Seybol d 2022-11-25 2022-11-25 Outpatient PREZAS, LOLLY PACE [id number] Lolly 00:00:00 00:00:00 PRESTON Seybol d 2022-11-15 2022-11-15 Outpatient LAB90 LOLLY PACE [id number] Lolly 08:05:00 08:05:00 Seybol d 2022-11-11 2022-11-11 Outpatient PREZAS, LOLLY PACE [id number] Lolly 09:00:00 09:00:00 PRESTON Seybol d 2022-11-05 2022-11-05 Outpatient LAB90 LOLLY PACE [id number] Lolly 13:30:00 13:30:00 Seybol d 2022-11-05 2022-11-05 Outpatient PREZAS, LOLLY PACE [id number] Lolly 00:00:00 00:00:00 PRESTON Seybol d 2022-11-05 2022-11-05 Outpatient PREZAS, LOLLY PACE [id number] Lolly 00:00:00 00:00:00 PRESTON Seybol d 2022-10-18 2022-10-18 Outpatient PREZAS, LOLLY PACE [id number] Lolly 00:00:00 00:00:00 PRESTON Seybol d 2022-10-18 2022-10-18 Outpatient PREZAS, LOLLY PACE [id number] Lolly 00:00:00 00:00:00 PRESTON Seybol d 2022-10-15 2022-10-15 Outpatient PREZAS, LOLLY PACE [id number] Lolly 00:00:00 00:00:00 PRESTON Seybol d 2022-10-14 2022-10-14 Outpatient LAB90 LOLLY PACE [id number] Lolly 09:00:00 09:00:00 Seybol d 2022-10-14 2022-10-14 Outpatient PREZAS, LOLLY PACE [id number] Lolly 08:30:00 08:30:00 PRESTON Seybol d 2022-10-12 2022-10-12 Outpatient LAB90 LOLLY PACE [id number] Lolly 08:05:00 08:05:00 Seybol d 2022-10-12 2022-10-12 Outpatient PREZAS, LOLLY PACE [id number] Lolly 00:00:00 00:00:00 PRESTON Seybol d 2022-09-27 2022-09-27 Outpatient PREZAS, LOLLY PACE [id number] Lolly 00:00:00 00:00:00 PRESTON Seybol d 2022-09-27 2022-09-27 Outpatient PREZAS, LOLLY PACE [id number] Lolly 00:00:00 00:00:00 PRESTON Seybol d 2022-09-16 2022-09-16 Outpatient PREZAS, LOLLY PACE [id number] Lolly 08:00:00 08:00:00 PRESTON Seybol d 2022-08-20 2022-08-20 Outpatient PREZAS, LOLLY PACE [id number] Lolly 00:00:00 00:00:00 PRESTON Seybol d 2022-08-19 2022-08-19 Outpatient PREZAS, LOLLY PACE [id number] Lolly 09:00:00 09:00:00 PRESTON Seybol d 2022-08-11 2022-08-11 Outpatient PREZAS, LOLLY PACE [id number] Lolly 00:00:00 00:00:00 PRESTON Seybol d 2022-08-10 2022-08-10 Outpatient PREZAS, LOLLY PACE [id number] Lolly 08:15:00 08:15:00 PRESTON Seybol d 2022-07-19 2022-07-19 [facility], 1.2.840.1 [id number] Methodi 12:13:00 20:37:00 Encounter Shanta [id number] [id number] s t 3.430.2.7 Hospit a .3.860111 l .8 2022-07-19 2022-07-19 Surgery Attar, 1.2.840.1 [id number] Methodi 15:20:00 16:40:[address] 3.430.2.7 Hospit a .3.530290 l .8 2022-07-19 2022-07-19 Outpatient LOLLY PACE [id number] Lolly 00:00:00 00:00:00 Malickol stalin 2022-07-19 2022-07-19 Travel 1.2.840.1 [id number] Methodi 00:00:00 00:00:[address] 3.430.2.7 0.2.7.3.698 spita .3.243243 084.8 l .8 2022-05-19 2022-05-19 Outpatient LOLLY STUART [id number] Lolly 00:00:00 00:00:00 PRESTON Teresaol stalin 2022-05-10 2022-05-10 Outpatient LOLLY STUART [id number] Lolly 08:45:00 08:45:00 PRESTON Teresaol stalin 2022-03-03 2022-03-03 Orders Doctor FRANKY 1.2.840.114 [id number] [facility] 00:00:00 00:00:00 Only Unassigned, PETEY 350.1.13.10 ity of [place] [facility] 4.2.7.2.686 Clay as [id number] 2022-02-23 2022-02-23 Outpatient Tushar PATHAK [facility] [id number] Univers 11:00:00 11:00:00 SENDANGELICA ity of [facility] 2021-12-24 2021-12-24 [facility] [id number] 12:17:00 18:57:00 Encounter [facility] 2021-12-24 2021-12-24 Outpatient EL ANNABEL BURCIAGA Surgery [id number] [facility] 12:17:00 18:57:00 [facility] 2021-12-24 2021-12-24 [facility] [id number] 12:17:00 18:57:00 Encounter [facility] 2021-12-24 2021-12-24 [facility] [id number] [facility] 17:18:00 17:53:00 Event [facility] 2021-12-24 2021-12-24 Anesthesia AnaKush david[facility]stevemarbella [facility] [id number] [facility] 17:18:00 17:53:00 Event [facility] 2021-12-24 2021-12-24 [facility] [id number] 16:02:00 17:02:00 [facility] 2021-12-24 2021-12-24 [facility] [id number] 16:02:00 17:02:00 [facility] 2021-12-24 2021-12-24 Travel [facility] [id number] [facility] 00:00:00 00:00:00 [facility] 2021-12-24 2021-12-24 Travel [facility] [id number] [facility] 00:00:00 00:00:00 [facility] 2021-12-21 2021-12-21 Outpatient EL SLE [facility] [id number] [facility] 10:56:58 23:59:00 2021-12-21 2021-12-21 [facility] [id number] 10:40:00 23:59:00 Encounter [facility] 2021-12-21 2021-12-21 [facility] [id number] 10:40:00 23:59:00 Encounter [facility] 2021-12-21 2021-12-21 Travel [facility] [id number] [facility] 00:00:00 00:00:00 [facility] 2021-12-21 2021-12-21 Travel [facility] [facility] [id number] [facility] 00:[facility] 00:00:00 [facility] 2020-12-23 2020-12-23 Outpatient R [facility] [id number] Univers 13:00:00 13:00:00 ity [facility] 2020-12-23 2020-12-23 Outpatient R [facility] [id number] Univers 11:20:00 11:20:00 ity [facility] 2020-12-23 2020-12-23 Outpatient [facility] SLE [id number] [facility] 00:00:00 00:00:00 2020-06-30 2020-06-30 [facility] 1.2.840.114 [id number] 06:46:00 08:16:00 Encounter Chema May 350.1.13.10 [facility] [place] 4.2.7.2.686 Surgical [id number] [place] [address] 2020-06-30 2020-06-30 [facility] 1.2.840.114 [id number] Univers 06:46:00 08:16:00 [facility] [id number] [facility] [address] 2020-06-30 2020-06-30 Outpatient R [facility]AR[facility] [id number] Univers 06:46:00 08:16:00 CHEMA ity [facility] 2020-06-30 2020-06-30 Orders Doctor WILKINS 1.2.840.114 [id number] 00:00:00 00:00:00 Only Unassigned, PETEY 350.1.13.10 [place] [facility] 4.2.7.2.686 [id number] 009 2020-06-30 2020-06-30 Orders Doctor FRANKY 1.2.840.114 [id number] Univers 00:00:00 00:00:00 Only Unassigned, PETEY 350.1.13.10 [facility] 4.2.7.2.686 [facility] [id number] [address] 2020-06-27 2020-06-27 Outpatient Tushar PANCHO, [facility] [id number] Univers 14:45:00 14:45:00 [facility] 2020-06-27 2020-06-27 Laboratory Only, [facility] 1.2.840.114 [id number] 07:50:58 08:05:58 Only Test Yadira 350.1.13.10 [facility] [place] 4.2.7.2.686 [place] [id number] [facility] 2020-06-27 2020-06-27 Laboratory Only, [facility] Test [facility] 1.2.840. 114 [id number] [facility] 07:50:58 08:05:58 Only Pancho Chema Naldo May 350.1.13.1 0 ity of [place] [place] 4.2.7.2.686 [facility] [id number] [address] 2020-06-24 2020-06-24 Outpatient Tushar PANCHO, [facility] [id number] Univers 09:15:00 09:15:00 [facility] 2019-11-06 2019-11-06 Outpatient [facility] [facility] [address] [place] [address] 11:38:00 11:38:00 _J_AH [address] [facility] Practic e 2019-11-06 2019-11-06 Outpatient [facility] [facility] [address] 11:38:00 11:38:00 _J_AH 59092 Family Practic e 2016-06-29 2016-06-29 Outpatient JAISON_Tulio GONZALEZ [facility] 2019 [place] 03:16:00 03:16:00 0506 [facility] Results Test Description Test Time Test Comments Results Result Comments Source ECG Pre/Post Op 2022-07-20 04:16:30 Test Item Value Reference Range Interpretation Comme nts Ventricular rate (test code = 253) Atrial rate (test code = 255) IA interval (test code = 266) QRSD interval (test code = 260) QT interval (test code = 264) QTC interval (test code = 265) P axis 1 (test code = 267) QRS axis 1 (test code = 268) T wave axis (test code = 270) EKG impression (test code = 273) Normal sinus rhythm-Left axis almita ation-Left bundle branch block-Abnormal ECG-In automated comparison with ECG of 25-NOV-2014 13:21,-No significant change was found- [facility] Pre/Post [id number] 04:16:30 Test Item Value Reference Range Interpretation Comments Ventricular rate (test 80 code = 253) Atrial rate (test code 80 = 255) IA interval (test code 150 = 266) QRSD interval (test 128 code = 260) QT interval (test code 402 = 264) QTC interval (test code 463 = 265) P axis 1 (test code = 66 267) QRS axis 1 (test code = -57 268) T wave axis (test code 94 = 270) EKG impression (test Normal sinus code = 273) rhythm-Left axis deviation-Left bundle branch block-Abnormal ECG-In automated comparison with ECG of 25-NOV-2014 13:21,-No significant change was found- [facility] lab [id number] 04:08:01 Test Item Value Reference Range Interpretation Comments Cath EF Estimated 53 % (test code = 2530518980) EVIN (test code = Coronary arteriography and [...] basilar anterior, basilar inferior and apical inferior. [facility] [id number] 22:39:00 Test Item Value Reference Range Interpretation Comments POC glucose (test code = 123 mg/dL 65-99 H Ope rator Name: [id number]) Basilio Hobbs MDevice ID: [id number] able : No Action Nee ded Lab Interpretation (test Abnormal code = 53272-2) [facility] [id number] 22:39:00 Test Item Value Reference Range Interpretation Comments POC glucose (test code = 123 mg/dL 65-99 H Ope rator Name: [id number]) Basilio Hobbs MDevice ID: [id number] able : No Action Nee ded Lab Interpretation (test Abnormal code = 43788-2) [facility] [id number] 20:31:01 Test Item Value Reference Range Interpretation Comments POC sodium (test code = 140 mmol/L 662-842 5507-0) POC potassium (test 3.5 mmol/L 3.5-5.0 code = 6298-4) POC chloride (test code 100 mmol/L 99-109 = 2069-3) POC CO2 (test code = 27 mmol/L 65-8) POC glucose (test code 137 mg/dL 65-99 H = 2339-0) POC BUN (test code = 16 mg/dL 8 6299-2) POC creatinine (test 0.8 mg/dl 0.5-0.9 code = 40621-6) POC hematocrit (test 40 % 37-47 code = 4544-3) POC anion gap (test 18 mmol/L 8-20 Market Development Executive Name: Delgado code = [id number]) WenjuDevice ID: [id number] Lab Interpretation Abnormal (test code = 48350-8) [facility] [id number] 20:31:01 Test Item Value Reference Range Interpretation Comments POC sodium (test code = 140 mmol/L 607-769 6025-0) POC potassium (test 3.5 mmol/L 3.5-5.0 code = 6298-4) POC chloride (test code 100 mmol/L 99-109 = 2069-3) POC CO2 (test code = 27 mmol/L 65-8) POC glucose (test code 137 mg/dL 65-99 H = 2339-0) POC BUN (test code = 16 mg/dL 8-24 6299-2) POC creatinine (test 0.8 mg/dl 0.5-0.9 code = 42896-1) POC hematocrit (test 40 % 37-47 code = 4544-3) POC anion gap (test 18 mmol/L 8 Market Development Executive Name: Danny code = [id number]) WenjuDevice ID: [id number] Lab Interpretation Abnormal (test code = 14338-7) [facility] [id number] 20:31:00 Test Item Value Reference Range Interpretation Comments Estimated GFR (test mL/min/1.73 m2 Caterg ory Units code = 02386-6) Interpretati onG1 >=90 Normal or highG 2 60-89 Mildly decrease dG3a 45-59 Mildly to moder ately hszgyitidB3d 30 -44 Moderately to s everely decreasedG4 15- 29 Severely decreasedG5 <15 Kidney failureThe eGFR was calculated usin g the Chronic Kidney Disease Epidemiology Co llaboration (CKD-EPI) equat ion. Interpretation is based on recommendations of the National Kidney Foundation-Kidn ey Disease Outcomes Qualit y Initiative (NKF-KDOQI) pub lished in 2014. [facility] [id number] 20:31:00 Test Item Value Reference Range Interpretation Comments Estimated GFR (test 73 mL/min/1.73 m2 Caterg ory Units code = 44481-8) Interpretati onG1 >=90 Normal or highG 2 60-89 Mildly decrease dG3a 45-59 Mildly to moder ately kgdrqciiuS4s 30 -44 Moderately to s everely decreasedG4 15- 29 Severely decreasedG5 <15 Kidney failureThe eGFR was calculated usin g the Chronic Kidney Disease Epidemiology Co llaboration (CKD-EPI) equat ion. Interpretation is based on recommendations of the National Kidney Foundation-Kidn ey Disease Outcomes Qualit y Initiative (NKF-KDOQI) pub lished in 2013. Audelia [id number] 13:30:33 Test Item Value Reference Range Interpretation Comments QuantaFlo left side See_Comment [Automa alon message] The (test code = system which AMX nerated this 33370-0L) result transmit alon reference range : 1.40 - 0.90 NA. The re ference range was not u sed to interpret this result as normal/abnormal . QuantaFlo right side See_Comment Present ation Factors: (test code = Hypertension, 21380-6D) Hyperlipidemia, DiabetesExercis e Modality: At RestNormal - 1.40 - 1.00Borderline - 0.99 - 0.90Mild - 0.89 - 0.60Moderate - 0.59 - 0.30Severe - 0. 29 - 0.00 [Automated mess age] The system which AMX nerated this result transmit alon reference range : 1.40 - 0.90 NA. The re ference range was not u sed to interpret this result as normal/abnormal . [facility] Duff [id number] 17:46:10Reason for exam:->bile duct strictureBIA [facility]: [facility] : 1950 Sex: FAn imaging unit was utilized for this procedure. No radiologist interpretation was requested. Refer to the EMR for findings. Refer to PACS for any patient radiation dose information.POC-Glucose [id number] 14:30:55 Test Item Value Reference Range Interpretation Comments POC-Glucose Meter (test 146 mg/dL 70-110 H : TE STED AT [facility] code = 1538) [address] [place] [address], 770 30: Market Development Executive/Techni lexie ID = [id number] for Hooton, Marcela Lab Interpretation (test Abnormal code = 77933-5) [facility]-Glucose [id number] 14:30:55 Test Item Value Reference Range Interpretation Comments POC-Glucose Meter (test 146 mg/dL 70-110 H : TE STED AT [facility] code = 1538) [address] [place] [address], 770 30: Market Development Executive/Techni lexie ID = [id number] for Hooton, Marcela Lab Interpretation (test Abnormal code = 32871-8) [facility]-Glucose [id number] 14:30:55 Test Item Value Reference Range Interpretation Comments POC-Glucose Meter (test 146 mg/dL 70-110 H : TE STED AT [facility] code = 1538) [address] [place] [address], 770 30: Market Development Executive/Techni lexie ID = [id number] for Hooton, Marcela Lab Interpretation (test Abnormal code = 76811-9) [facility]-Glucose [id number] 14:30:55 Test Item Value Reference Range Interpretation Comments POC-Glucose Meter (test 146 mg/dL 70-110 H : TE STED AT [facility] code = 1538) [address] [place] [address], 770 30: Market Development Executive/Techni lexie ID = [id number] for Hooton, Marcela Lab Interpretation (test Abnormal code = 08881-7) [facility]-Glucose [id number] 14:30:55 Test Item Value Reference Range Interpretation Comments POC-Glucose Meter (test 146 mg/dL 70-110 H : TE STED AT [facility] code = 1538) [address] [place] [address], 770 30: Market Development Executive/Techni lexie ID = [id number] for Hooton, Marcela Lab Interpretation (test Abnormal code = 07176-9) [facility]-GLUCOSE [id number] 14:30:55 Test Item Value Reference Range Interpretation Comments POC-GLUCOSE METER 146 mg/dL 70-110 H : TESTED A T [facility] 6720 (BEAKER) (test code = [facility] Tushar [facility], 1538) [address]: Market Development Executive/Techni lexie ID = [id number] for Marcela Tyson POCT-GLUCOSE [id number] 11:22:00 Test Item Value Reference Range Interpretation Comments POC-GLUCOSE METER 188 mg/dL 70-110 H : Notified RN/MD: (LAURI) (test code = TESTED AT [facility] 6720 1538) KIMBERLEY [facility], [address]: Market Development Executive/Techni lexie ID = [id number] for ZOE ESPITIA [place], [id number] 10:54:00Reason for exam:->calculus of bile duct [facility] JOY : 1950 Sex: FFluoroscopic unit utilized for a procedure performed in the OR. No interpretation was requested. Refer tothe operative report for findings. Refer to PACS for patient radiation dose information.POCT-GLUCOSE [id number] 08:13:00 Test Item Value Reference Range Interpretation Comments POC-GLUCOSE METER 197 mg/dL 70-110 H : TESTED A T [facility] 6720 (LAURI) (test code = KRISTIN Finley [facility], 1538) [address]: Market Development Executive/Techni lexie ID = [id number] for Tamiko Petty CBC WITH [id number] 13:14:00 Test Item Value Reference Range Interpretation Comments WBC (test code = See_Comment [Automated message] 6690-2) The system [employer] generated this result transmitted ref erence range: 4.30 - 1 1.10 10*3/?L. The re ference range was not u sed to interpret this result as normal/abnor mal. RBC (test code = See_Comment [Automated message] 409-8) The system [employer] generated this result transmitted ref erence range: [...] RDW-SD (test code 45.6 fL 39-49.9 = 07443-5) RDW-CV (test code 14.3 % 12-15.5 = 788-0) PLT (test code = See_Comment [Automated message] 777-3) The system [employer] generated this result transmitted ref erence range: 166 - 35 8 10*3/?L. The re ference range was not u sed to interpret this result as normal/abnor mal. MPV (test code = 10.6 fL 9.5-12.9 85776-7) NRBC/100 WBC (test See_Comment [Automat ed message] code = 7564908999) The syste m which generated this result transmitted ref erence range: 0.0 - 10 .0 /100 WBCs. The refer ence range was not u sed to interpret this result as normal/abnor mal. NRBC x10^3 (test <0.01 See_Comment [Automated message] code = 1202658533) The syste m which generated this result transmitted ref erence range: 10*3/?L. The reference range was not used to interpr et this result as normal/abnormal . GRAN MAT (NEUT) % 60.2 % (test code = 770-8) IMM GRAN % (test 0.40 % code = 4628748934) LYMPH % (test code 28.3 % = 736-9) MONO % (test code 7.3 % = 5905-5) EOS % (test code = 2.8 % 713-8) BASO % (test code 1.0 % = 706-2) GRAN MAT 4.06 10*3/uL 1.88-7.09 x10^3(ANC) (test code = 8132382957) IMM GRAN x10^3 0.03 10*3/uL 0-0.06 (test code = 2914896446) LYMPH x10^3 (test 1.91 10*3/uL 1.32-3.29 code = 731-0) MONO x10^3 (test 0.49 10*3/uL 0.33-0.92 code = 742-7) EOS x10^3 (test 0.19 10*3/uL 0.03-0.39 code = 711-2) BASO x10^3 (test 0.07 10*3/uL 0.01-0.07 code = 704-7) [facility]ennial[facility]OO[facility] [id number] 12:55:00 Test Item Value Reference Range Interpretation Comments POCT Glu (age>30days) (test code = 194 mg/dL 70-110 A 3342) Lab Interpretation (test code = Abnormal 31146-5) [facility] CentennialFL, [id number] 22:39:00INTRA OP IMAGINGReason for exam:->CBD STONESFINAL REPORT Examination: ERCP 4 fluoroscopic spot views were obtained during the procedure by the ordering service. Images are nondiagnostic as no radiologist was present at the time of imaging. Fluoroscopic time was 122.2 seconds. Please see the procedure report for details. Signed: Reyes Spicer Verified Date/Time: 02/07/2019 22:39:15 Reading Location: [address] Reading Room POCT- GLUCOSE [id number] 18:25:00 Test Item Value Reference Range Interpretation Comments POC-GLUCOSE METER 200 mg/dL 70-110 H TESTED AT [facility] 6720 (BEAKER) (test code = KRISTIN [place] 1538) [address] POCT-GLUCOSE [id number] 15:42:00 Test Item Value Reference Range Interpretation Comments POC-GLUCOSE METER 164 mg/dL 70-110 H TESTED AT [facility] 6720 ([facility]) (test code = KRISTIN [place] 1538) [address] POCT-GLUCOSE [id number] 12:01:00 Test Item Value Reference Range Interpretation Comments POC-GLUCOSE METER 189 mg/dL 70-110 H TESTED AT [facility] 6720 ([facility]) (test code = KRISTIN Finley [place] 1538) [address] POCT-GLUCOSE [id number] 05:00:00 Test Item Value Reference Range Interpretation Comments POC-GLUCOSE METER 196 mg/dL 70-110 H TESTED AT [place] [address] ([facility]) (test code = [place]ST[place] 1538) [address] POCT-GLUCOSE [id number] 00:28:00 Test Item Value Reference Range Interpretation Comments POC-GLUCOSE METER 218 mg/dL 70-110 H TESTED AT [place] [address] ([facility]) (test code = KRISTIN Finley [place] 1538) [address] POCT-GLUCOSE [id number] 17:58:00 Test Item Value Reference Range Interpretation Comments POC-GLUCOSE METER 155 mg/dL 70-110 H TESTED AT [place] [address] ([facility]) (test code = KRISTIN Finley [facility] 1538) [address] MR, ABDOMEN, [id number] 12:55:00FINAL REPORT TECHNIQUE: MRI of the abdomen [...] fatty infiltration of the liver.Signed: Teresa Dowling MDReport Verified Date/Time: 02/06/2019 12:55:19 Reading Location: [facility] B1 C013Y CT Body Reading Room POCT-GLUCOSE [id number] 11:33:00 Test Item Value Reference Range Interpretation Comments POC-GLUCOSE METER 190 mg/dL 70-110 H TESTED AT [place] [address] ([facility] (test code = [facility] 1538) [address] POCT-GLUCOSE [id number] 06:13:00 Test Item Value Reference Range Interpretation Comments POC-GLUCOSE METER 210 mg/dL 70-110 H TESTED AT [place] [address] ([facility] (test code = [facility] 1538) [address] PROTHROMBIN [id number] 03:06:00 Test Item Value Reference Range Interpretation [...] is 2.5-3.5 for patients wiht mechanical heart valves.[id number] 03:06:00 Test Item Value Reference Range Interpretation Comments MAGNESIUM (BEAKER) 1.3 mg/dL 1.6-2.6 L Specimen slightly (test code = 627) hemolyzed BASIC METABOLIC [id number] 03:06:00 Test Item Value Reference Range Interpretation [...] DIALYSIS PATIEN TS. Specimen slightly ictericHEPATIC FUNCTION [id number] 03:06:00 Test Item Value Reference Range Interpretation [...] Specimen slightly ictericCBC W/PLT COUNT & AUTO [id number] 02:50:00 Test Item Value Reference Range Interpretation [...] 417) IMMATURE GRANULOCYTES-RELATIVE 0 % 0-1 PERCENT ([facility]) (test code = 2801) POCT-GLUCOSE [id number] 23:33:00 Test Item Value Reference Range Interpretation Comments POC-GLUCOSE METER 241 mg/dL 70-110 H TESTED AT [facility] 6720 [facility] (test code = KRISTIN [place] 1538) [address]
--- NOTE | 2022-12-16 17:16 | RAD REPORT ---
EXAM DESCRIPTION: RAD - Chest Single View - 12/16/2022 5:10 pm CLINICAL HISTORY: Cough;SOB COMPARISON: Chest Single View dated 08/19/2021; Chest Single View dated 05/05/2020; Chest Single View dated 02/19/2020; Chest Single View dated 10/22/2019 FINDINGS: Lines: None. Lungs: No evidence of edema or pneumonia. Pleural: No significant pleural effusions or pneumothorax. Cardiac: The heart size is within normal limits. Mediastinum: Within normal limits. Bones: No acute fractures. Other: None IMPRESSION: No acute cardiopulmonary disease.
[2022-12-16 17:34] LABS: Absolute Lymphocytes (CBC) 0.8 K/uL (0.7-4.9); Hematocrit 37.7 % (36.0-45.0); Lymphocytes % 9.1 % (15.3-44.8); RBC Red Blood Cell Count 4.54 M/uL (3.86-4.86)
[2022-12-16] MEDS ORDERED: METHYLPREDNISOLONE 125 MG INJ ONE (17:37)
[2022-12-16] MEDS ORDERED: ALBUTEROL 2.5 MG/3 ML NEB SOL ONE (17:37)
[2022-12-16] MEDS ORDERED: IPRATROPIUM BROM 0.5MG/2.5ML ONE (17:37)
[2022-12-16] MEDS ORDERED: ONDANSETRON 4 MG/2 ML VIAL ONE (17:37)
[2022-12-16] MEDS ORDERED: FAMOTIDINE 20 MG/2 ML VIAL IV ONE (17:38)
[2022-12-16 17:49] LABS: Albumin 3.2 g/dL (3.4-5.0); Bilirubin Total 0.4 mg/dL (0.2-1.0); Potassium 3.9 mEq/L (3.5-5.1); Protein, Total 7.7 g/dL (6.4-8.2)
[2022-12-16 18:44] LABS: Protime INR 1.14
--- NOTE | 2022-12-16 19:03 | ER ---
Nurse's Notes [facility] Name: Laura Khanna Age: 72 yrs Sex: Female : 1950 Arrival Date: 12/16/2022 Time: 16:39 Bed 5 Private MD: Diagnosis: Hypoxemia;Acute upper respiratory infection, unspecified Presentation: 12/16 16:42 Chief complaint: EMS states: COUGH AND FLU-LIKE S/S x2 DAYS. Coronavirus screen: cough bp unrelated to allergies, fever, shortness of breath, Client presents with at least one sign or symptom that may indicate coronavirus-19. Standard/surgical mask placed on the client. Provider contacted for isolation considerations. Ebola Screen: No symptoms or risks identified at this time. Initial Sepsis Screen: Does the patient meet any 2 criteria? HR > 90 bpm. No. Patient's initial sepsis screen is negative. Does the patient have a suspected source of infection? Yes: Productive cough/pneumonia. Risk Assessment: Do you want to hurt yourself or someone else? Patient reports no desire to harm self or others. Onset of symptoms is unknown. Care prior to arrival: IV initiated. 18 GA, in the right forearm. 16:42 Method Of Arrival: EMS: [facility] bp 16:42 Acuity: ZACARIAS 3 bp Triage Assessment: 16:43 General: Appears ill, Behavior is cooperative, appropriate for age, anxious. Pain: bp Denies pain. EENT: No deficits noted. Neuro: Reports weakness GENERALIZED. Cardiovascular: Rhythm is sinus tachycardia. Respiratory: Reports cough that is. GI: No signs and/or symptoms were reported involving the gastrointestinal system. : No signs and/or symptoms were reported regarding the genitourinary system. Derm: No deficits noted. Musculoskeletal: No deficits noted. Historical: - Allergies: 16:43 Iodine; bp 16:43 Levaquin; bp 16:43 PENICILLINS; bp - PMHx: 16:43 Diabetes - IDDM; Pancreatitis; Hypothyroidism; Hypertension; Diabetes - NIDDM; bp - PSHx: 16:43 cardiac stent; Cholecystectomy; Coronary artery bypass graft; bp - Immunization history:: Adult Immunizations up to date. - Social history:: Smoking status: Patient denies any tobacco usage or history of. Screenin:45 [facility] ED Fall Risk Assessment (Adult) History of falling in the last 3 months, bp including since admission No falls in past 3 months (0 pts). Abuse screen: Denies threats or abuse. Denies injuries from another. Nutritional screening: No deficits noted. Tuberculosis screening: No symptoms or risk factors identified. Assessment: 16:45 General: SEE TRIAGE NOTE. bp 17:00 Reassessment: Patient appears in no apparent distress at this time. Patient and/or db family updated on plan of care and expected duration. Pain level reassessed. Patient is alert, oriented x 3, equal unlabored respirations, skin warm/dry/pink. patient complains of flu like symptoms with low O2 saturation. Patient placed on NC 2L O2 saturation increased to 94%. 18:00 Reassessment: Patient appears in no apparent distress at this time. Patient and/or db family updated on plan of care and expected duration. Pain level reassessed. Patient is alert, oriented x 3, equal unlabored respirations, skin warm/dry/pink. Neuro: Level of Consciousness is awake, alert, obeys commands, Oriented to person, place, time, situation. Respiratory: Reports shortness of breath at rest Airway is patent Respiratory effort is even, labored, Respiratory pattern is regular, symmetrical, Breath sounds are diminished. 18:50 Reassessment: Patient is alert, oriented x 3, equal unlabored respirations, skin db warm/dry/pink. patient O2 sat dropped to 86% while sitting down. Placed patient on 2L O2 NC and notified provider Page. 19:24 Reassessment: Patient appears in no apparent distress at this time. Patient and/or aa9 family updated on plan of care and expected duration. Pain level reassessed. Patient is alert, oriented x 3, equal unlabored respirations, skin warm/dry/pink. Patient denies pain at this time. 20:00 Reassessment: Patient and/or family updated on plan of care and expected duration. Pain pf1 level reassessed. Patient is alert, oriented x 3, equal unlabored respirations, skin warm/dry/pink. 21:00 Reassessment: Patient and/or family updated on plan of care and expected duration. Pain pf1 level reassessed. Patient is alert, oriented x 3, equal unlabored respirations, skin warm/dry/pink. 21:31 Reassessment: No changes from previously documented assessment. attempted to call aa9 report. 22:15 Reassessment: report provided to alison. hand Vital Signs: 16:42 BP 145 / 80; Pulse 100; Resp 21; Temp 99.4; Pulse Ox 86% on R/A; bp 16:46 BP 110 / 54; Pulse 95; Resp 20; Temp 99.2; Pulse Ox 86% on R/A; Weight 95.25 kg; Height bp 5 ft. 5 in. ; 17:00 BP 113 / 69; Pulse 89; Resp 18; Pulse Ox 95% on R/A; db 17:30 BP 114 / 60; Pulse 86; Resp 18; Pulse Ox 94% on 2 lpm NC; db 18:30 BP 121 / 59; Pulse 84; Resp 18; Pulse Ox 92% on R/A; db 18:50 Pulse 82; Resp 22; Pulse Ox 86% on R/A; db 19:30 BP 140 / 54; Pulse 90; Resp 16; Pulse Ox 93% on 2 lpm NC; pf1 20:30 BP 113 / 47; Pulse 79; Resp 15; Pulse Ox 96% on 2 lpm NC; pf1 16:46 Body Mass Index 34.95 (95.25 kg, 165.1 cm) bp ED Course: 16:41 Patient arrived in ED. bp 16:43 Jesus Handy PA is PHCP. jmm 16:43 Geena Bustos MD is Attending Physician. jmm 16:43 Triage completed. bp 16:43 Arm band placed on. bp 16:44 PHCP role handed off by Jesus Handy PA cp 16:44 Chicho Ernandez PA is PHCP. cp 16:44 Kody Turner MD is Attending Physician. cp 16:45 Patient has correct armband on for positive identification. Bed in low position. Call bp light in reach. Side rails up X2. 16:45 Maintain EMS IV. Dressing intact. Good blood return noted. Site clean \T\ dry. Gauge \T\ bp site: 18 GA R FA. 16:46 Cal Lebron, IRINA is Primary Nurse. bp 17:12 Chest Single View XRAY In Process Unspecified. EDMS 17:23 First set of blood cultures drawn. Inserted saline lock: 20 gauge in right antecubital db area, using aseptic technique. Blood collected. 19:01 Dinh Bocanegra MD is Hospitalizing Provider. cp 19:34 Diet: Patient given a regular meal tray. Patient given snack. Patient given water. aa9 21:27 No provider procedures requiring assistance completed. Patient admitted, IV remains in aa9 place. Administered Medications: 17:47 Drug: DuoNeb Nebulize (2.5 mg - 0.5 mg) 3 ml Route: Nebulizer; bp 17:47 Drug: MethylPrednisoLONE IVP 125 mg Route: IVP; Site: right forearm; bp 17:47 Drug: Ondansetron IVP 4 mg Route: IVP; Site: right forearm; bp 17:47 Drug: Famotidine IVP 20 mg Route: IVP; Site: right forearm; bp 19:24 Drug: Rocephin IV 1 grams Route: IV; Rate: calculated rate; Site: right antecubital; aa9 19:47 Follow up: Response: No adverse reaction; IV Status: Completed infusion; IV Intake: [id number] 19:34 Drug: Zithromax IVPB 500 mg Route: IVPB; Infused Over: 1 hrs; Site: left forearm; aa9 Medication: 16:45 VIS not applicable for this client. bp Intake: 19:47 IV: 10ml; Total: 10ml. aa9 Outcome: 19:02 Decision to Hospitalize by Provider. cp 21:28 Admitted to Med/surg accompanied by nurse, room 217, with chart. aa9 21:28 Condition: stable 22:39 Patient left the ED. aa9 Signatures: Dispatcher [employer] EDMS Jesus Handy PA PA jmm Page, Corey, PA PA cp Cal Lebron, RN RN bp Mary Saldivar RN RN aa9 Hanh Zhang RN RN db Gillian tinajero, IRINA RN pf1
--- NOTE | 2022-12-16 19:03 | EDPHYS ---
Physician Documentation [facility] Name: Laura Khanna Age: 72 yrs Sex: Female : 1950 Arrival Date: 12/16/2022 Time: 16:39 Bed 5 Private MD: ED Physician Kody Turner HPI: 12/16 17:00 This 72 yrs old Female presents to ER via EMS with complaints of Flu Symptoms. cp 17:00 The patient or guardian reports cough, that is intermittent, difficulty breathing. cp 17:00 Onset: The symptoms/episode began/occurred 2 day(s) ago. cp 17:00 Associated signs and symptoms: Pertinent positives: fever, nausea, sore throat, cp Pertinent negatives: chest pain, diarrhea, vomiting, abdominal pain. Severity of symptoms: in the emergency department the symptoms are unchanged despite home interventions. Historical: - Allergies: 16:43 Iodine; bp 16:43 Levaquin; bp 16:43 PENICILLINS; bp - PMHx: 16:43 Diabetes - IDDM; Pancreatitis; Hypothyroidism; Hypertension; Diabetes - NIDDM; bp - PSHx: 16:43 cardiac stent; Cholecystectomy; Coronary artery bypass graft; bp - Immunization history:: Adult Immunizations up to date. - Social history:: Smoking status: Patient denies any tobacco usage or history of. ROS: 17:02 Constitutional: Positive for body aches, Negative for fever, poor PO intake. cp 17:02 Eyes: Negative for injury, pain, redness, and discharge. cp 17:02 Cardiovascular: Negative for chest pain, edema. 17:02 Respiratory: Positive for cough, shortness of breath, at rest. 17:02 Abdomen/GI: Positive for nausea, Negative for abdominal pain. 17:02 ENT: Positive for sore throat, Negative for drainage from ear(s), ear pain, difficulty cp swallowing, difficulty handling secretions. 17:02 Neck: Negative for pain with movement, pain at rest, stiffness. 17:02 Back: Negative for radiated pain. 17:02 : Negative for urinary symptoms. 17:02 Neuro: Negative for altered mental status, dizziness, headache, syncope. 17:02 All other systems are negative. Exam: 17:03 ECG was reviewed by the Attending Physician. cp 17:05 Constitutional: The patient appears in no acute distress, alert, awake, cp non-diaphoretic, non-toxic, well developed, well nourished, uncomfortable. 17:05 Head/Face: Normocephalic, atraumatic. cp 17:05 Eyes: Periorbital structures: appear normal, Conjunctiva: normal, no exudate, no injection, Sclera: no appreciated abnormality, Lids and lashes: appear normal, bilaterally. 17:05 ENT: External ear(s): are unremarkable, Ear canal(s): are normal, clear, TM's: dullness, bilaterally, Nose: is normal, Mouth: Lips: moist, Oral mucosa: moist, Posterior pharynx: Airway: no evidence of obstruction, patent, Tonsils: with erythema, no enlargement, no exudate, swelling, is not appreciated, erythema, that is moderate, exudate, is not appreciated, Voice: is normal. 17:05 Neck: ROM/movement: is normal, is supple, without pain, no range of motions limitations, no meningismus. 17:05 Chest/axilla: Inspection: normal. 17:05 Cardiovascular: Rate: tachycardic, Rhythm: regular, Edema: is not appreciated, JVD: is not appreciated. 17:05 Respiratory: the patient does not display signs of respiratory distress, Respirations: shallow respirations, that is mild, Breath sounds: bronchial sounds, that are mild, are heard diffusely, stridor, is not appreciated, wheezing: that is mild, is heard diffusely. 17:05 Abdomen/GI: Inspection: abdomen appears normal, Palpation: abdomen is soft and non-tender, in all quadrants. 17:05 Back: pain, is absent, ROM is normal. 17:05 Skin: cellulitis, is not appreciated, no rash present. 17:05 Neuro: Orientation: to person, place \T\ time. Mentation: is normal, Motor: moves all fours, strength is normal. Vital Signs: 16:42 BP 145 / 80; Pulse 100; Resp 21; Temp 99.4; Pulse Ox 86% on R/A; bp 16:46 BP 110 / 54; Pulse 95; Resp 20; Temp 99.2; Pulse Ox 86% on R/A; Weight 95.25 kg; Height bp 5 ft. 5 in. ; 17:00 BP 113 / 69; Pulse 89; Resp 18; Pulse Ox 95% on R/A; db 17:30 BP 114 / 60; Pulse 86; Resp 18; Pulse Ox 94% on 2 lpm NC; db 18:30 BP 121 / 59; Pulse 84; Resp 18; Pulse Ox 92% on R/A; db 18:50 Pulse 82; Resp 22; Pulse Ox 86% on R/A; db 19:30 BP 140 / 54; Pulse 90; Resp 16; Pulse Ox 93% on 2 lpm NC; pf1 20:30 BP 113 / 47; Pulse 79; Resp 15; Pulse Ox 96% on 2 lpm NC; pf1 16:46 Body Mass Index 34.95 (95.25 kg, 165.1 cm) bp MDM: 16:45 Patient medically screened. cp 17:00 Differential diagnosis: bronchitis, flu, URI, pneumonia, pulmonary embolism, UTI, cp sepsis. 19:05 Data reviewed: vital signs, nurses notes, lab test result(s), EKG, radiologic studies, cp plain films, and as a result, I will admit patient. 19:05 Antibiotic administration: Rocephin and Zithromax given. Consideration of cp Admission/Observation Patient was admitted/placed on observation. Management of patient was discussed with the following: Hospitalist: Julio Cesar Plasencia [employer] will admit after discussion. I considered the following discharge prescriptions or medication management in the emergency department Medications were administered in the Emergency Department. See MAR. Test considered but Not performed: CT: chest. Care significantly affected by the following chronic conditions: Diabetes, Hypertension. Counseling: I had a detailed discussion with the patient and/or guardian regarding: the historical points, exam findings, and any diagnostic results supporting the discharge/admit diagnosis, lab results, radiology results, the need for further work-up and treatment in the hospital. Response to treatment: the patient's symptoms have mildly improved after treatment. 12/16 16:52 Order name: Blood Culture Adult (2) cp 12/16 16:52 Order name: CBC with Diff; Complete Time: 18:11 cp 12/16 18:11 Interpretation: Normal except: RDW 17.1; LIN% 82.0; LYM% 9.1. cp 12/16 16:52 Order name: CMP; Complete Time: 18:11 cp 12/16 18:11 Interpretation: Normal except: NA 133; GLUC 179; GFR 59; ALB 3.2; GLOB 4.5; A/G 0.7. / 16:52 Order name: Lactate w/ 2H reflex if indic.; Complete Time: 18:11 12/16 18:11 Interpretation: Reviewed. 12/16 16:52 Order name: Protime (+inr); Complete Time: 19:49 12/16 16:52 Order name: Ptt, Activated; Complete Time: 19:49 12/16 16:52 Order name: Urinalysis w/ reflexes 12/16 16:52 Order name: COVID-19 SARS RT PCR; Complete Time: 18:11 12/16 18:11 Interpretation: Reviewed. 12/16 16:52 Order name: RSV; Complete Time: 18:11 12/16 18:11 Interpretation: Reviewed. 12/16 16:52 Order name: Strep; Complete Time: 18:11 12/16 18:11 Interpretation: Reviewed. 12/16 16:52 Order name: Influenza Screen (a \T\ B); Complete Time: 18:11 12/16 18:11 Interpretation: Reviewed. 12/16 16:58 Order name: Glucose, Ancillary Testing; Complete Time: 17:18 [facility] 12/16 17:18 Interpretation: Reviewed. 12/16 17:41 Order name: Throat Culture [facility] 12/16 18:59 Order name: LAB Add On 12/16 19:00 Order name: D-Dimer; Complete Time: 19:49 [facility] 12/16 16:52 Order name: Chest Single View XRAY; Complete Time: 17:18 12/16 17:19 Interpretation: Report review. 12/16 19:01 Order name: Chest Wo Con CT la1 12/16 20:44 Order name: CT [facility] 12/16 16:52 Order name: EKG; Complete Time: 16:53 12/16 16:52 Order name: Accucheck; Complete Time: 17:35 12/16 16:52 Order name: Cardiac monitoring; Complete Time: 17:35 12/16 16:52 Order name: EKG - Nurse/Tech; Complete Time: 17:35 12/16 16:52 Order name: IV Saline Lock - Large Bore; Complete Time: 17:35 12/16 16:52 Order name: Labs collected and sent; Complete Time: 17:35 12/16 16:52 Order name: O2 Per Protocol; Complete Time: 17:35 cp 12/16 16:52 Order name: O2 Sat Monitoring; Complete Time: 17:35 cp 12/16 16:52 Order name: Vital Signs; Complete Time: 17:35 cp EC:03 Rate is 90 beats/min. Rhythm is regular. UT interval is normal. QRS interval is cp prolonged at 126 msec. QT interval is normal. T waves are Inverted in leads aVL, aVR. Interpreted by me. Reviewed by me. Administered Medications: 17:47 Drug: DuoNeb Nebulize (2.5 mg - 0.5 mg) 3 ml Route: Nebulizer; bp 17:47 Drug: MethylPrednisoLONE IVP 125 mg Route: IVP; Site: right forearm; bp 17:47 Drug: Ondansetron IVP 4 mg Route: IVP; Site: right forearm; bp 17:47 Drug: Famotidine IVP 20 mg Route: IVP; Site: right forearm; bp 19:24 Drug: Rocephin IV 1 grams Route: IV; Rate: calculated rate; Site: right antecubital; aa9 19:47 Follow up: Response: No adverse reaction; IV Status: Completed infusion; IV Intake: [id number] 19:34 Drug: Zithromax IVPB 500 mg Route: IVPB; Infused Over: 1 hrs; Site: left forearm; aa9 Disposition: 12/17 09:00 Co-signature as Attending Physician, Kody Turner MD I reviewed the patient's care rt provided by the Advanced Practice Provider and agree with the diagnosis and treatment plan. Disposition Summary: 12/16/22 19:02 Hospitalization Ordered Hospitalization Status: Inpatient Admission cp Provider: Dinh Bocanegra cp Location: Telemetry/MedSurg (Inpatient) cp Condition: Stable cp Problem: new cp Symptoms: have improved cp Bed/Room Type: Standard cp Room Assignment: 217(12/16/22 20:39) cg Diagnosis - Hypoxemia cp - Acute upper respiratory infection, unspecified cp Forms: - Medication Reconciliation Form cp - SBAR form cp Signatures: Dispatcher [employer] EDMS Julio Cesar Plasencia FNP-C GYNECOLOGICAL ASSISTANT-Cla1 Chicho Ernandez PA PA cp Garcia, Cindy, RN RN cg Bernardino, Cal, RN Mary Ellison RN RN aa9 Kody Turner MD MD rt Corrections: (The following items were deleted from the chart) 12/16 19:08 18:59 D-DIMER+COAG.LAB.BRZ ordered. EDMS EDMS 20:39 19:02 cp cg
[2022-12-16] MEDS ORDERED: AZITHROMYCIN 500 MG INJ IVPB ONE (19:19)
[2022-12-16] MEDS ORDERED: NA CHLORIDE 0.9% 250 ML ONE (19:19)
[2022-12-16] MEDS ORDERED: CEFTRIAXONE 1000 MG/VIAL ONE (19:19)
--- NOTE | 2022-12-16 20:09 | P.HP ---
Certification for Inpatient Patient admitted to: Observation With expected LOS: <2 Midnights Patient will require the following post-hospital care: None Practitioner: I am a practitioner with admitting privileges, knowledge of patient current condition, hospital course, and medical plan of care. Services: Services provided to patient in accordance with Admission requirements found in Title 42 Section 412.3 of the Code of Federal Regulations Patient History Date of Service: 12/16/22 Reason for admission: Dyspnea, hypoxia History of Present Illness: 72-year-old female with history of [id number]-jsuedsbjd diabetes, hypertension, hypothyroidism presents emergency department chief complaint of shortness of breath, chills, fever. She reports has been having flulike symptoms for the last 2 to 3 days, she does have sick contacts her daughter has also been sick with similar symptoms past few days. Tmax 101 today. She was evaluated here in the emergency department her labs were significant for hyperglycemia glucose 179 D-dimer 690age-adjusted negative COVID/influenza/strep negative. Chest x-ray was unremarkable. CT chest without contrast pending as patient is allergic to iodine. Will admit for hypoxia, dyspnea, suspected viral syndrome. Allergies levofloxacin [From Levaquin] Allergy (Severe, Verified 01/19/12 14:52) Anaphylaxis Penicillins Allergy (Severe, Verified 01/19/12 14:51) Anaphylaxis iodine [Iodine] Allergy (Intermediate, Verified 01/19/12 14:52) Anaphylaxis povidone-iodine [From Betadine] Allergy (Verified 01/19/12 14:52) Anaphylaxis shellfish derived Allergy (Verified 05/05/20 14:12) Hives soap [From Betadine] Allergy (Verified 01/19/12 14:52) Anaphylaxis Iodine-Iodin Allergy (Intermediate, Uncoded 05/05/20 14:12) Hives Home Medications: Amlodipine [Norvasc*] 5 mg PO DAILY 10/22/19 Aspirin 81 mg PO DAILY 10/22/19 Irbesartan 300 mg PO BEDTIME 10/22/19 Levothyroxine Sodium 75 mcg PO [id number] 10/22/19 Omeprazole [Prilosec] 40 mg PO BEDTIME 10/22/19 Insulin Detemir [Levemir] 56 unit SQ BID 30 Days #1 vial 10/24/19 Atorvastatin Calcium [Lipitor] 80 mg PO BEDTIME 05/05/20 Lidocaine 4% Patch [Lidoderm 5% Patch*] 1 patch TD DAILY #15 patch 05/05/20 Metformin HCl [Metformin ER Gastric] 1,000 mg PO BID 05/05/20 - Past Medical/Surgical History Diabetic: Yes -: Diabetes mellitus type 2 [id number] -: Hypertension -: Hyperlipidemia -: Hypothyroidism -: Arthritis -: GERD -: CAD with prior stent -: Hysterectomy -: Cholecystectomy -: Appendectomy -: Left thumb joint replacement -: cardiact stent -Apr 2018 -: left shoulder surgery Psychosocial/ Personal History: Patient is a . She lives with a relative. - Family History Father -: Heart disease, Hypertension Notes: BECAUSE OF CHF PER PATIENT Mother -: Heart disease, Hypertension, Other (see notes) Notes: ALZHEIMERS, July 2018 - Social History Smoking Status: Never smoker Alcohol use: No CD- Drugs: No Caffeine use: Yes Place of Residence: Home Review of Systems 10-point ROS is otherwise unremarkable General: Fever, Chills Respiratory: Cough, Shortness of Breath, Wheezing Physical Examination - Physical Exam General: Alert, In no apparent distress, Oriented x3 HEENT: Atraumatic, PERRLA, Mucous membr. moist/pink, EOMI, Sclerae nonicteric Neck: Supple, 2+ carotid pulse no bruit, No LAD, Without JVD or thyroid abnormality Respiratory: Clear to auscultation bilaterally, Normal air movement Cardiovascular: Regular rate/rhythm, Normal S1 S2 Capillary refill: <2 Seconds Gastrointestinal: Normal bowel sounds, No tenderness Musculoskeletal: No tenderness Integumentary: No rashes Neurological: Normal speech, Normal strength at 5/5 x4 extr, Normal tone, Normal affect - Studies Laboratory Data (last 24 hrs) 12/16/22 17:23: PT 12.5, INR 1.14, APTT 32.2 12/16/22 17:23: Sodium 133 L, Potassium 3.9, BUN 10, Creatinine 1.01, Glucose 179 H, Total Bilirubin 0.4, AST 15, ALT 28, Alkaline Phosphatase 70 12/16/22 17:23: WBC 8.30, Hgb 12.4, Hct 37.7, Plt Count 253 Microbiology Data (last 24 hrs): 12/16/22 17:11 Nasopharnyx Influenza Type A Antigen Screen - Final 12/16/22 17:11 Nasopharnyx Influenza Type B Antigen Screen - Final 12/16/22 17:11 Nasopharnyx Respiratory Syncytial Virus Ag Scrn - Final 12/16/22 17:11 Throat Group A Streptococcus Rapid Screen - Final Assessment and Plan - Plan Assessment: Dyspnea, hypoxia suspect viral syndrome Diabetes mellitus type [id number] Hypertension Hypothyroidism Plan: Dyspnea, hypoxia suspect viral syndrome CT chest pending for further evaluation, no leukocytosis at this time does have sick contact suspect viral syndrome. Continue prednisone, Tessalon Perle, wean off oxygen as tolerated currently 86% on room air. Diabetes mellitus type 1fkw-shytajf-uwwzziksi ACHS Accu-Chek, sliding scale insulin Hypertension Hypothyroidism Continue home meds. DVT PPX:Lovenox Code status:Full Discharge Plan: Home Plan to discharge in: 48 Hours - Advance Directives Does patient have a Living Will: Yes Does patient have a Durable POA for Healthcare: Yes - Code Status/Comfort Care Code Status Assessed: Yes (Full code) Critical Care: No Time Spent Managing Pts Care (In Minutes): 55
--- NOTE | 2022-12-16 20:44 | RAD REPORT ---
EXAM DESCRIPTION: CT - Thorax Wo Con - 12/16/2022 8:11 pm CLINICAL HISTORY: dyspnea, hypoxia COMPARISON: Cholangiogram dated 10/28/2021; Angio Aorta For Dissection dated 05/05/2020 FINDINGS: Chest Wall: No suspicious thyroid nodules or pathologic lymphadenopathy. Lungs: New small nodule/focus of consolidation in the right middle lobe. This measures approximate 7 millimeters. Calcified left lower lobe nodule. Pleura: No significant effusions or pneumothorax. Mediastinum/marbella: No pathologic lymphadenopathy. Pulmonary arteries/Aorta: Limited evaluation without contrast. No aortic aneurysm. Heart: No significant pericardial effusion. Normal heart size. Stent in the LAD. Upper abdomen: Pneumobilia. This may be related to prior sphincterotomy. Bones: No acute abnormality. All CT scans are performed using dose optimization technique as appropriate and may include automated exposure control or mA/KV adjustment according to patient size. IMPRESSION: No acute findings within the chest. Small right middle lobe nodular focus of doubtful ac hamilton significance. A 6 month follow-up chest CT is recommended to ensure stability and/or resolution.
[2022-12-16] MEDS ORDERED: ALBUTEROL 2.5 MG/3 ML NEB SOL NEB PRN (22:22)
[2022-12-16 22:55] VITALS: BMI 35.3
[2022-12-16] MEDS: BENZONATATE 100 MG CAP PO PRN (23:08)
[2022-12-16] MEDS: INSULIN -REGULAR HUMAN 50 UNIT/0.5 ML ML SQ SCH (23:09)
[2022-12-16] MEDS: predniSONE 20 MG TAB PO SCH (23:09)
[2022-12-17 03:22] LABS: Specific Gravity 1.007 (1.005-1.030); Urine Bacteria None Seen /HPF (<20); Urine Bilirubin NEGATIVE (Negative); Urine Blood Negative (Negative); Urine Clarity Turbid (Clear); Urine Color Light-Yellow (Yellow); Urine Glucose 4+ (Over) (Negative); Urine Mucus Slight /HPF (None Seen); Urine Protein NEGATIVE (Negative); Urine RBC None Seen /HPF (None Seen); Urine Urobilinogen Normal (Normal); Urine WBC Clump Rare /HPF (None Seen)
[2022-12-17 03:34] LABS: Absolute Lymphocytes (CBC) 0.5 K/uL (0.7-4.9); Hematocrit 37.2 % (36.0-45.0); Lymphocytes % 5.5 % (15.3-44.8); MCV 84.4 fL (80-100); MPV 8.6 fL (7.6-11.3); RBC Red Blood Cell Count 4.41 M/uL (3.86-4.86)
[2022-12-17 03:52] LABS: Potassium 3.9 mEq/L (3.5-5.1)
[2022-12-17 04:34] LABS: Blood Morphology Comment NOT SEEN (NOT SEEN); Platelet Estimate ADEQ
--- NOTE | 2022-12-17 05:35 | EKG ---
Test Date: 2022-12-16 Test Time: 16:52:17 Mammal Keeper: ODILON MEASUREMENT RESULTS: Intervals: Rate: 90 SD: 154 QRSD: 126 QT: 382 QTc: 467 Isaban: P: 72 SD: 154 QRS: -64 T: 90 INTERPRETIVE STATEMENTS: Normal sinus rhythm Left axis deviation Left bundle branch block Abnormal ECG Compared to ECG 09/25/2022 04:11:38 Ventricular premature complex(es) no longer present Electronically Signed On 12-17-22 05:33:04 CDT by Bienvenido Nguyen
[2022-12-17] MEDS: BENZONATATE 100 MG CAP PO PRN ×3 (05:41→23:07)
[2022-12-17] MEDS: NA CHLORIDE 0.9% 1,000 ML IV SCH ×2 (05:52→15:37)
[2022-12-17] MEDS: LEVOTHYROXINE SOD 0.075 MG TAB PO SCH (06:00)
[2022-12-17] MEDS: predniSONE 20 MG TAB PO SCH (08:27)
[2022-12-17] MEDS: ENOXAPARIN 40 MG/0.4 ML SQ SCH (08:27)
[2022-12-17] MEDS: INSULIN -REGULAR HUMAN 50 UNIT/0.5 ML ML SQ SCH ×4 (08:28→21:03)
[2022-12-17] MEDS ORDERED: ALBUTEROL 2.5 MG/3 ML NEB SOL NEB PRN (09:54)
[2022-12-17] MEDS ORDERED: CALCIUM CARBONATE CHEW 500MG TAB PO PRN (09:57)
--- NOTE | 2022-12-17 10:01 | P.PN ---
Subjective Date of Service: 12/17/22 (Hospitalist) Chief Complaint: Dyspnea, weakness heartburn Patient is not able to eat currently has had cough fever throat the past 2 days felt a little dizzy came here to the hospital has a difficulty eating complaining of severe reflux Review of Systems General: Weakness Respiratory: Cough, Shortness of Breath Physical Examination - Vital Signs Temperature: 98.8 F Blood Pressure: 152/67 Pulse: 89 Respirations: 16 Pulse Ox (%): 95 - Physical Exam General: Alert, In no apparent distress, Oriented x3 Respiratory: Clear to auscultation bilaterally Cardiovascular: No edema, Regular rate/rhythm, Normal S1 S2 - Studies Laboratory Data (last 24 hrs) 12/16/22 17:23: PT 12.5, INR 1.14, APTT 32.2 12/16/22 17:23: Sodium 133 L, Potassium 3.9, BUN 10, Creatinine 1.01, Glucose 179 H, Total Bilirubin 0.4, AST 15, ALT 28, Alkaline Phosphatase 70 12/16/22 17:23: WBC 8.30, Hgb 12.4, Hct 37.7, Plt Count 253 Microbiology Data (last 24 hrs): 12/16/22 17:11 Nasopharnyx Influenza Type A Antigen Screen - Final 12/16/22 17:11 Nasopharnyx Influenza Type B Antigen Screen - Final 12/16/22 17:11 Nasopharnyx Respiratory Syncytial Virus Ag Scrn - Final 12/16/22 17:11 Throat Group A Streptococcus Rapid Screen - Final Assessment And Plan - Current Problems (Diagnosis) (1) Near syncope Onset Date: 03/21/18 Current Visit: No Status: Acute Plan: Patient is 72 years of age admitted with near syncope he is to have a viral infection planing of sore throat fever renal function is little elevated creatinine 1.21 has been eating and drinking complaining of heartburn blood sugars elevated chest x-ray is clear she has had no fever since admission and is a diabetic is on Ozempic vital signs are stable will DC steroids start on p.o. Zithromax continue with IV fluids possible discharge a.m. urinalysis is abnormal possible urinary tract infection flu and RSV screen both negative COVID is also negative complaining of severe GERD resume PPI add Tums patient's chest x-ray is clear
[2022-12-17] MEDS: AMLODIPINE 5 MG TAB PO SCH (10:18)
[2022-12-17] MEDS: AZITHROMYCIN 250 MG TAB PO SCH (10:18)
[2022-12-17] MEDS: PANTOPRAZOLE 40MG TABLET PO SCH ×2 (10:19→15:35)
[2022-12-17] MEDS: CEFTRIAXONE 1,000 MG in NA CHLORIDE 0.9% 50 ML IVPB SCH (15:35)
[2022-12-17] MEDS: ACETAMINOPHEN 500 MG TAB PO PRN ×2 (16:47→21:04)
[2022-12-17] MEDS ORDERED: HOME MED 1 EA UNK (Irbesartan [Irbesartan] 300 MG Tablet) PO SCH (21:00)
[2022-12-17] MEDS ORDERED: HOME MED 1 EA UNK (Omeprazole [Prilosec] 40 MG Capsule.Dr) PO SCH (21:00)
[2022-12-17] MEDS: METFORMIN ER 500 MG TAB PO SCH (21:03)
[2022-12-17] MEDS: VALSARTAN 160 MG TAB PO SCH (21:03)
[2022-12-17] MEDS ORDERED: DOCUSATE NA 100 MG CAP PO ONE (22:31)
[2022-12-17] MEDS ORDERED: CHLORASEPTIC LOZENGES PO PRN (22:45)
[2022-12-17] MEDS ORDERED: PHENOL 1.4% ORAL SPRAY 180ML MM PRN (22:52)
[2022-12-18] MEDS: NA CHLORIDE 0.9% 1,000 ML IV SCH (02:19)
[2022-12-18 03:28] LABS: Absolute Lymphocytes (CBC) 0.9 K/uL (0.7-4.9); Hematocrit 33.4 % (36.0-45.0); Lymphocytes % 8.2 % (15.3-44.8); MCV 83.4 fL (80-100); MPV 8.7 fL (7.6-11.3); RBC Red Blood Cell Count 4.01 M/uL (3.86-4.86)
[2022-12-18 03:38] LABS: Potassium 3.7 mEq/L (3.5-5.1)
[2022-12-18] MEDS: LEVOTHYROXINE SOD 0.075 MG TAB PO SCH (06:38)
[2022-12-18] MEDS: PANTOPRAZOLE 40MG TABLET PO SCH ×2 (07:30→16:30)
[2022-12-18] MEDS: INSULIN -REGULAR HUMAN 50 UNIT/0.5 ML ML SQ SCH ×4 (07:30→21:00)
[2022-12-18] MEDS ORDERED: POTASSIUM CL SA 10 MEQ TAB PO ONE (09:00)
[2022-12-18] MEDS: ACETAMINOPHEN 500 MG TAB PO PRN ×2 (09:05→17:43)
[2022-12-18] MEDS: METFORMIN ER 500 MG TAB PO SCH ×2 (09:07→21:54)
[2022-12-18] MEDS: AZITHROMYCIN 250 MG TAB PO SCH (09:07)
[2022-12-18] MEDS: AMLODIPINE 5 MG TAB PO SCH (09:07)
[2022-12-18] MEDS: ENOXAPARIN 40 MG/0.4 ML SQ SCH (09:08)
[2022-12-18] MEDS: BENZONATATE 100 MG CAP PO PRN ×2 (09:10→21:54)
--- NOTE | 2022-12-18 09:22 | P.PN ---
Subjective Date of Service: 12/18/22 Chief Complaint: Complaining of cough congestion dizziness Patient is complaining of cough congestion productive sputum dizziness on standing up no change since yesterday still febrile Review of Systems General: Weakness Respiratory: Cough, Shortness of Breath Neurological: As per HPI Physical Examination - Vital Signs Temperature: 100.1 F Blood Pressure: 143/62 Pulse: 98 Respirations: 18 Pulse Ox (%): 93 - Physical Exam General: Alert, In no apparent distress, Oriented x3 Neck: Supple Respiratory: Clear to auscultation bilaterally Cardiovascular: No edema, Normal pulses, Regular rate/rhythm Gastrointestinal: Normal bowel sounds, Soft and benign - Studies Microbiology Data (last 24 hrs): 12/16/22 17:11 Throat Group A Streptococcus Rapid Screen - Final 12/16/22 17:11 Throat Culture & Sensitivity - Final NORMAL UPPER RESPIRATORY SANTO GROWN. Assessment And Plan - Current Problems (Diagnosis) (1) Sepsis Current Visit: Yes Status: Acute Plan: Patient is running a fever complaining of productive cough is on Rocephin and Zithromax also is febrile sputum cultures have been ordered blood cultures are otherwise negative chemistries reviewed white count is mildly elevated will repeat chest x-ray patient feels dizzy Qualifiers: Sepsis type: sepsis due to unspecified organism
--- NOTE | 2022-12-18 11:58 | RAD REPORT ---
EXAM DESCRIPTION: RAD - Chest Single View - 12/18/2022 11:36 am CLINICAL HISTORY: Productive cough COMPARISON: Chest Single View dated 12/16/2022; Chest Single View dated 08/19/2021; Chest Single View dated 05/05/2020; Chest Single View dated 02/19/2020; Thorax Wo Con dated 12/16/2022 FINDINGS: Lines: None. Lungs: Mild increasing ill-defined opacities at the left lateral lung base. Pleural: No significant pleural effusions or pneumothorax. Cardiac: The heart size is within normal limits. Mediastinum: Within normal limits. Bones: No acute fractures. Other: None IMPRESSION: Possible developing consolidation in the left lower lobe. Underpenetration and/or atelec tasis could also cause these findings .
[2022-12-18] MEDS: ALBUTEROL 2.5 MG/3 ML NEB SOL NEB PRN ×2 (13:51→20:10)
[2022-12-18] MEDS: VALSARTAN 160 MG TAB PO SCH (21:55)
[2022-12-18] MEDS: CEFTRIAXONE 1,000 MG in NA CHLORIDE 0.9% 50 ML IVPB SCH (22:19)
[2022-12-19 03:19] LABS: Absolute Lymphocytes (CBC) 1.5 K/uL (0.7-4.9); MCV 83.7 fL (80-100); MPV 8.7 fL (7.6-11.3); RBC Red Blood Cell Count 3.71 M/uL (3.86-4.86)
[2022-12-19] MEDS: LEVOTHYROXINE SOD 0.075 MG TAB PO SCH (05:38)
[2022-12-19] MEDS: BENZONATATE 100 MG CAP PO PRN (05:38)
[2022-12-19] MEDS: INSULIN -REGULAR HUMAN 50 UNIT/0.5 ML ML SQ SCH (07:30)
[2022-12-19 09:05] VITALS: BP 128/60; TEMP 98.3
[2022-12-19] MEDS: ENOXAPARIN 40 MG/0.4 ML SQ SCH (09:35)
[2022-12-19] MEDS: METFORMIN ER 500 MG TAB PO SCH (09:35)
[2022-12-19] MEDS: PANTOPRAZOLE 40MG TABLET PO SCH (09:35)
[2022-12-19] MEDS: AMLODIPINE 5 MG TAB PO SCH (09:36)
[2022-12-19] MEDS: AZITHROMYCIN 250 MG TAB PO SCH (09:36)
[2022-12-19 09:55] VITALS: O2SAT 94
--- NOTE | 2022-12-19 09:58 | P.DS ---
Admission Date: 12/16/22 Discharge Date: 12/19/22 Disposition: ROUTINE DISCHARGE Discharge Condition: FAIR Reason for Admission: Complaining of cough congestion dizziness - Problems (1) Sepsis Current Visit: Yes Status: Acute Qualifiers: Sepsis type: sepsis due to unspecified organism Brief History of Present Illness: Patient is 72 years of age admitted with dizziness and fever Hospital Course: He was admitted to the hospital vital screen was all negative for influenza COVID and RSV he has some persistent fever some chest congestion I suspect he had a viral infection evidence of urinary tract symptoms or infection chest x- ray was also clear patient mildly anemic chemistries all unremarkable At the time of discharge doing well alert oriented plaint of some wheezing I prescribed her some Advair and doxycycline nonspecific changes on his CT scan the right middle lobe the time of discharge alert oriented responsive cooperative chest clear vital signs all stable cultures negative Vital Signs/Physical Exam: Temp Pulse Resp BP Pulse Ox 98.3 F 76 16 128/60 94 12/19/22 08:00 12/19/22 08:00 12/19/22 08:00 12/19/22 08:00 12/19/22 08:00 Laboratory Data at Discharge: WBC 8.30 thou/uL (4.3-10.9) 12/19/22 02:49 Hgb 10.3 g/dL (12.0-15.0) L 12/19/22 02:49 Hct 31.0 % (36.0-45.0) L 12/19/22 02:49 Plt Count 236 thou/uL (152-406) 12/19/22 02:49 PT 12.5 SECONDS (9.5-12.5) 12/16/22 17:23 INR 1.14 12/16/22 17:23 APTT 32.2 SECONDS (24.3-36.9) 12/16/22 17:23 Sodium 136 mEq/L (136-145) D 12/19/22 02:49 Potassium 4.0 mEq/L (3.5-5.1) 12/19/22 02:49 BUN 11 mg/dL (7-18) 12/19/22 02:49 Creatinine 0.71 mg/dL (0.55-1.02) 12/19/22 02:49 Glucose 173 mg/dL (74-106) H 12/19/22 02:49 Total Bilirubin 0.4 mg/dL (0.2-1.0) 12/16/22 17:23 AST 15 U/L (15-37) 12/16/22 17:23 ALT 28 U/L (13-56) 12/16/22 17:23 Alkaline Phosphatase 70 U/L (45-117) 12/16/22 17:23 Home Medications: Amlodipine [Norvasc*] 1 tab PO DAILY 12/17/22 Aspirin 1 tab PO DAILY 12/17/22 Atorvastatin Calcium 1 tab PO DAILY 12/17/22 Irbesartan [Avapro] 1 tab PO BEDTIME 12/17/22 Levothyroxine Sodium 75 mcg PO [id number] 12/17/22 Metformin HCl 1 tab PO BID 12/17/22 Omeprazole [Prilosec] 1 tab PO BEDTIME 12/17/22 Semaglutide [Ozempic] 1 dose SQ DAILY 12/17/22 Doxycycline Hyclate 100 mg PO BID 7 Days #14 tab 12/19/22 Fluticasone/Salmeterol [Advair 250-50 Diskus] 1 each IH BID 30 Days #60 aero 12/19/22 New Medications: Fluticasone/Salmeterol [Advair 250-50 Diskus] 1 each IH BID 30 Days #60 aero Doxycycline Hyclate 100 mg PO BID 7 Days #14 tab Followup: Preston Stuart DO [Primary Care Provider] -
== END 2022-12-19 11:04 | disposition home or self-care (01) | DRG 872 ==
LOC: ER 16:39 → ERHOLD 19:56 → 2ND 21:23
PROVIDERS: ADMIT Internal Medicine Sleep Medicine; ATTEND Internal Medicine Sleep Medicine
DX: A41.9 Sepsis, unspecified organism (principal); N39.0 Urinary tract infection, site not specified; I10 Essential (primary) hypertension; E03.9 Hypothyroidism, unspecified; E78.5 Hyperlipidemia, unspecified; D64.9 Anemia, unspecified; M19.90 Unspecified osteoarthritis, unspecified site; K21.9 Gastro-esophageal reflux disease without esophagitis; E11.65 Type 2 diabetes mellitus with hyperglycemia; B34.9 Viral infection, unspecified; Z88.0 Allergy status to penicillin; Z88.1 Allergy status to other antibiotic agents; Z95.5 Presence of coronary angioplasty implant and graft; Z90.49 Acquired absence of other specified parts of digestive tract; Z95.1 Presence of aortocoronary bypass graft; Z79.82 Long term (current) use of aspirin; Z79.4 Long term (current) use of insulin; Z79.84 Long term (current) use of oral hypoglycemic drugs; Z79.899 Other long term (current) drug therapy; Z91.013 Allergy to seafood; Z91.048 Other nonmedicinal substance allergy status; Z79.890 Hormone replacement therapy; Z90.710 Acquired absence of both cervix and uterus; Z96.698 Presence of other orthopedic joint implants; Z20.822 Contact with and (suspected) exposure to COVID-19
CPT/HCPCS: 36415; 71045; 71250; 80048; 80053; 81001; 82947; 83605; 84145; 85025; 85379; 85610; 85730; 87040; 87070; 87077; 87081; 87086; 87088; 87186; 87205; 87804; 87807; 93005; 94640; 99285; J0696; J1650; J1815; J2405; J2930; J7030; J7050; J7512; J7613; J7644; U0003

== ENCOUNTER 2023-01-10 16:47 | Emergency (ER) | payer OTHER ==
--- OUTSIDE RECORDS SUMMARY | 2023-01-10 16:54 | XMS REPORT | Continuity of Care Document ---
:1950 [facility] t Address [address] [facility] [place] [place] [address] Care Team Providers Name Role Phone Asked, No Pcp Primary Care Physician Unavailable CHEMA DELEON Attending Clinician Unavailable JOHN BURCIAGA Attending Clinician Unavailable PRESTON STUART Attending Clinician Unavailable LAB90 Attending Clinician Unavailable Atilio LR, Shanta Attending Clinician Doctor Unassigned, [place] Attending Clinician Unavailable VINCENT PATHAK Attending Clinician Unavailable John Burciaga MD Attending Clinician Erica LR, Bettie Quijano Attending Clinician [phone] Bryce LR, Inocencia Attending Clinician Chema Deleon MD Attending Clinician Only, Adc Test Attending Clinician Unavailable Ige-Odunuga_J_AH Attending Clinician Unavailable KATELYN ELLINGTON Attending Clinician Unavailable JAISON_Tulio Attending Clinician Unavailable CHEMA DELEON Admitting Clinician Unavailable JOHN BURCIAGA Admitting Clinician Unavailable SHANTA TRIMBLE Admitting Clinician Unavailable Pancho LR, Chema Hitchcock Admitting Clinician Ige-Odunwill_J_AH Admitting Clinician Unavailable KATELYN ELLINGTON Admitting Clinician Unavailable ISABELLE Admitting Clinician Unavailable Payers Payer Name Policy Type Policy Number Effective Date Expiration Date Naldo anaya [employer] [id number] 2019spring 00:00:00 WELLCARE MAPS [id number] 2018 00:00:00 WELLCARE [place] 7 [id number] 2022 CLASSIC NO PREMIUM 00:00:00 R2T [place] H[employer] ALL [id number] 2020 00:00:00 [place]ARE OF [place] - [id number] [place] (MEDICARE REPLACEMENT/ADVANT AGE - HMO) [place] B[place]: [id number] 2007 SQLstream 00:00:00 Problems Condition Condition Condition Status Onset Resolution Last Treating Co mments Source Name Details Category Date Date Treatment Clinician Date Bronchitis Bronchitis Disease Active K elsey 5-19 Seybold 00:00: - 00 Externa l Left lower Left lower Disease Active K elsey lobe lobe 5-19 Seybold pneumonia pneumonia 00:00: - 00 Externa l Yeast Yeast Disease Active Lolly infection infection [...] - involving involving 00 note Exte [place] l coronary coronary different artery of artery of from the [place] original. heart heart Cardiolog without without yMoo [...] Well adult Well adult Disease Active 2021-08 Kelvin campos exam exam 0-03 Seybold 00:00: - 00 Externa l Coronary Coronary Disease Active 2021-08 Overview: Enrique lsey artery artery 0-03 Formattin Seybold disease disease 00:00: g of this - involving involving 00 note Exte rna [place] might be l coronary coronary different artery of artery of from the [place] original. heart heart Cardiolog without without y- [...] lumbar l Seasonal Seasonal Disease Active 2021-08 Kelse y allergic allergic 0-03 Seybol d rhinitis rhinitis 00:00: - due to due to 00 Externa pollen pollen l Essential Essential Disease Recurre [facility] hypertensi hypertensi nce 02-05 Jacqueline kes on on 00:00: Medical 00 Center Type 2 Type 2 Disease Recurre [facility] diabetes diabetes nce 02-05 [facility] mellitus mellitus 00:00: Medica l without without 00 Center complicati complicati on, with on, with long-term long-term current current use of use of insulin insulin Biliary Biliary Disease Active [facility] colic colic 02-05 [facility] 00:00: Medical 00 Center History of [...] Anaphylaxis 2021-08 M ethodi acin ty to [address] [facility] adverse 00:00: Hospita reaction 00 l s to drug Penicill Propensi Active Anaphylaxis 2021-08 M ethodi ins ty to 2-12 st adverse 00:00: Hospita reaction 00 l s to drug Kdc:[place] Propensi Active 2021-08 Lolly ow ty to 0-03 Seybold Dye+Tart adverse 00:00: - razine+L reaction 00 Compliance Analyst a evofloxa s l matteo Iodine Propensi [...] DRUG Active Anaphylaxis 2019-08 Unive rs INGREDI -19 ity of 00:00: [place] 00 [facility] Iodine Propensi Active Anaphylaxis 2019-08 Increased Lolly ty to 1-19 fluid Seybold adverse 00:00: retention - reaction 00 Externa s l Levoflox Propensi Active Anaphylaxis 2019-08 K elsey acin ty to -19 Seybold adverse 00:00: - reaction 00 Externa s l Penicill Propensi Active Shortness of 2019-08 Hives Lolly ins ty to Breath 08-26 Seybold adverse 00:00: - reaction 00 Externa s l IODINE Drug Active High Anaphylaxis 2019-08 Unive rs AND Class 08-26 ity of IODIDE 00:00: [place] CONTAINI 00 Medical Branch PRODUCTS LEVOFLOX DRUG Active High Anaphylaxis 2019-08 Uni vers ACIN INGREDI 08-26 ity of 00:00: [place] 00 [facility] PENICILL Drug Active SOB 2019-08 Univers INS Class -19 ity of 00:00: [place] 00 [facility] Iodine Propensi Active Anaphylaxis 2019-08 Increased Univers And ty to 08-26 fluid ity of Iodide adverse 00:00: retention [place] Containi reaction 00 Medica l ng s Branch Products Penicill Propensi Active Shortness of 2019-08 Hives Univers ins ty to Breath 08-26 ity of adverse 00:00: [place] reaction [address] [facility] Penicill Drug Active Anaphylaxis 2019-0 Itching, [facility] ins Allergy 02-05 hives [facility] 00:00: Medical 00 [place] IODINE Allergy Active High Anaphylaxis 2019-0 [facility] AND 02-05 IODIDE 00:00: CONTAINI 00 NG PRODUCTS LEVOFLOX Allergy Active High Anaphylaxis 2019-0 [facility] ACIN 02-05 00:00: 00 PENICILL Allergy Active High Anaphylaxis 2019-0 [facility] INS 02-05 00:00: 00 Iodine Drug Active Anaphylaxis 2019-[address] And Allergy 02-05 , iv and [facility] Iodide 00:00: topical Medical Containi 00 iodine, [facility] has Products steroids for premed Levoflox Drug Active Anaphylaxis 2019-[address] acin Allergy 02-05 [facility] 00:00: Medical 00 [place] Penicill Drug Active Anaphylaxis 2019-0 Itching, [facility] ins Allergy 02-05 hives [facility] 00:00: Medical 00 [place] NO KNOWN Drug Active Univers ALLERGIE Class ity of S [facility] Family History Family Member Diagnosis Comments Start Date Stop Date Source Natural father Heart attack [facility] Natural father Heart disease [facility] Natural mother Heart attack [facility] Natural mother Heart disease [facility] Natural brother Brain cancer [facility] Natural brother Diabetes [facility] Natural brother Cancer [facility] Natural brother Diabetes [facility] Natural brother Heart disease [facility] Social History Social Habit Start Date Stop Date Quantity Comments Source Exposure to Not sure University of SARS-CoV-2 (event) [facility] Gender identity [facility] Sexual orientation [facility] History SDOH [facility] Alcohol Binge Medical Efraín ter History SDOH [facility] Alcohol Std Drinks Medica l Center History of Social 2022-07-20 2022-07-[address] function 00:00:00 00:00:00 Hospital Tobacco use and 2022-07-19 2022-07-19 Smokeless [facility] exposure 00:00:00 00:00:00 tobacco non-user Hospital Alcohol Comment 2022-05-10 2022-05-10 rarely Lolly Se ybold - 00:00:00 00:00:00 External Education 2022-05-10 2022-05-10 16 Lolly Seybold - 00:00:00 00:00:00 External Alcohol intake 2021-12-25 2021-12-[address] [facility] 00:00:00 00:00:00 non-drinker of Medical Ce nter alcohol (finding) History SDOH 2019-02-06 2019-02-[address] [facility] Alcohol Frequency 00:00:00 00:00:00 [facility] Sex Assigned At [address] [facility] kes 00:00:00 00:00:00 [facility] Smoking Status Start Date Stop Date Source Never smoked tobacco Lolly Seyb old - External Medications Ordered Filled Start Stop Current Ordering Indication Dosage Frequency Signature Comments Components Source Medication Medication Date Date Medication? Clinician (SIG) Name Name predniSONE Yes [id number] 10mg Take 1 Lolly (DELTASONE) 5-19 tablet (10 Se ybold 10 MG oral 00:00: mg total) - tablet 00 by mouth Externa daily l Benzonatate Yes [id number] 200mg Q.[id number] Take 1 Lolly 200 MG oral 5-19 [id number] capsule Seybold Capsule 00:00: 3D (200 mg - 00 total) by Externa mouth 3 l times daily as needed for cough Albuterol Yes [id number] 2{puff} Q.25D Inhale 2 Lolly HFA 108 (90 5-19 puffs into Se ybold Base) 00:00: the lungs - MCG/ACT IN 00 every 6 Compliance Analyst a AERS hours as l needed for wheezing or shortness of breath Azithromyci 2022-0 2022- Yes [id number] Take 2 Lolly n 250 MG 5-19 05-25 tablets by Seyb old oral Tablet 00:00: 04:59 mouth on - 00 :00 day 1 then Externa 1 tablet l by mouth daily for 4 days thereafter . Doxycycline 2022-0 Yes 100mg Take 1 Los sey Hyclate 100 5-14 capsule Seybo ld MG oral 00:00: (100 mg - Capsule 00 total) by Externa mouth 2 l times daily Fluticasone 0 Yes 1{puff} 1 puff 2 Lolly -Salmeterol 5-14 times Seybold 250-50 00:00: daily - MCG/ACT 00 Externa inhalation l AEROSOL POWDER, BREATH ACTIVATED Amlodipine 0 Yes [id number] 10mg Take 1 K elsey Besylate 10 5-03 tablet (10 Se ybold MG oral 00:00: mg total) - Tablet 00 by mouth Externa daily l Irbesartan 0 Yes [id number] 300mg Take 1 Lolly 300 MG oral 5-03 tablet Seybol d Tablet 00:00: (300 mg - 00 total) by Externa mouth l daily OZEMPIC (1 0 Yes [id number] 1mg Inject 1 Lolly mg/dose) 4 4-20 mg into Seybol d mg/3 mL SQ 00:00: the skin - Solution 00 once a Externa Pen-Injecto week l r Metformin 2022-0 2022- No 1000mg Take 1 Los sey HCl 1000 MG 4-06 04-06 tablet Seybo ld oral Tablet 07:59: 00:00 (1,000 mg - 15 :00 total) by Externa mouth 2 l times daily Aspirin 81 2022-0 Yes 81mg Take 1 Kelse y MG oral 4-06 tablet (81 Seybol d Chewable 07:52: mg total) - Tablet 52 by mouth Externa daily l Loratadine 2022-0 Yes 10mg Take 1 Kelse y 10 MG oral 4-06 capsule Seybol d Capsule 07:52: (10 mg - 52 total) by Externa mouth l daily Aspirin 81 2022-0 Yes 81mg Take 1 Kelse y MG oral 4-06 tablet (81 Seybol d Chewable 07:52: mg total) - Tablet 52 by mouth Externa daily l Loratadine 2022-0 Yes 10mg Take 1 Kelse y 10 MG oral 4-06 capsule Seybol d Capsule 07:52: (10 mg - 52 total) by Externa mouth l daily Metformin 2022-0 Yes [id number] 1000mg Take 1 Lolly HCl 1000 MG 4-06 tablet Seybol d oral Tablet 00:00: (1,000 mg - 00 total) by Externa mouth 2 l times daily Metformin 2022-0 Yes [id number] 1000mg Take 1 Lolly HCl 1000 MG 4-06 tablet Seybol d oral Tablet 00:00: (1,000 mg - 00 total) by Externa mouth 2 l times daily TRIMETHOPRI 2022-0 2022- No [id number] 1{tbl} Take 1 Lolly M-SULFAMETH 3-31 04-06 tablet by Se ybold OXAZOLE 00:00: 00:00 mouth 2 - (BACTRIM 00 :00 times Externa DS) 800-160 daily for l MG oral 7 days Tablet TRIMETHOPRI 2022-0 2022- No [id number] 1{tbl} Take 1 Lolly M-SULFAMETH 3-13 04-06 tablet by Se ybold OXAZOLE 00:00: 00:00 mouth 2 - (BACTRIM 00 :00 times Externa DS) 800-160 daily for l MG oral 7 days Tablet Metformin 0 Yes 1000mg Take 1,000 Lolly HCl 1000 MG 3-09 mg by Seybold oral Tablet 07:58: mouth 2 - 40 times Externa daily l Aspirin 81 2022-0 Yes 81mg Take 81 mg K elsey MG oral 3-09 by mouth Seybold Chewable 07:58: daily - Tablet 40 Externa l Loratadine 2022-0 Yes 10mg Take 10 mg K elsey 10 MG oral 3-09 by mouth Seybo ld Capsule 07:58: daily - 40 Externa l OZEMPIC 2022-0 Yes [id number] .5mg Inject 0.5 Lolly (0.25 or 3-09 mg into Seybold 0.5 00:00: the skin - mg/dose) 2 00 once a Externa mg/1.5 mL week l SQ Solution Pen-Injecto r OZEMPIC 2023-0 Yes [id number] .5mg Inject 0.5 Lolly (0.25 or 3-09 mg into Seybold 0.5 00:00: the skin - mg/dose) 2 00 once a Externa mg/1.5 mL week l SQ Solution Pen-Injecto r Fluconazole 0 2022- No [id number] 150mg Take 1 Lolly 150 MG oral 3-09 04-06 tablet Seybo ld Tablet 00:00: 00:00 (150 mg - 00 :00 total) by Externa mouth once l for 1 dose Fluconazole 0 2022- Yes [id number] 150mg Take 1 Lolly 150 MG oral 3-09 03-10 tablet Seybo ld Tablet 00:00: 05:59 (150 mg - 00 :00 total) by Externa mouth once l for 1 dose OZEMPIC 0 2022- No [id number] .25mg Inject Ke lsey (0.25 or 2-20 03-09 0.25 mg Seybold 0.5 00:00: 00:00 into the - mg/dose) 2 00 :00 skin once Exte rna mg/1.5 mL a week l SQ Solution Pen-Injecto r Metformin 0 Yes 1000mg Take 1,000 Lolly HCl 1000 MG 2-09 mg by Seybold oral Tablet 07:49: mouth 2 - 27 times Externa daily l Aspirin 81 2022-0 Yes 81mg Take 81 mg K elsey MG oral 2-09 by mouth Seybold Chewable 07:49: daily - Tablet 27 Externa l Loratadine 0 Yes 10mg Take 10 mg K elsey 10 MG oral 2-09 by mouth Seybo ld Capsule 07:49: daily - 27 Externa l OZEMPIC Yes [id number] .5mg Inject 0.5 Lolly (0.25 or 2-09 mg into Seybold 0.5 00:00: the skin - mg/dose) 2 00 once a Externa mg/1.5 mL week l SQ Solution Pen-Injecto r GlipiZIDE 0 2022- No 10mg Take 10 mg K elsey 10 MG oral 2-09 03-09 by mouth Seyb old TABLET SR 00:00: 00:00 daily - 24 HR 00 :00 Externa l Omeprazole 0 2022- No omeprazole Lolly 40 MG oral 1-12 01-12 40 mg Seybold Delayed 08:27: 00:00 capsule,de - Release 46 :00 layed Externa Capsule release l TAKE ONE (1) CAPSULE(S) BY MOUTH ONCE A DAY. Ketoconazol 2022-0 Yes [id number] Apply to Lolly e 2 % apply 1-12 affected Seyb old externally 00:00: area twice - Cream 00 daily for Externa 10 days l Omeprazole 2022-0 Yes [id number] 40mg Take 1 Lolly 40 MG oral 1-12 capsule Seybol d Delayed 00:00: (40 mg - Release 00 total) by Externa Capsule mouth l daily Ketoconazol 2022-0 Yes [id number] Apply to Lolly e 2 % apply 1-12 affected Seyb old externally 00:00: area twice - Cream 00 daily for Externa 10 days l Omeprazole 2022-0 Yes [id number] 40mg Take 1 Lolly 40 MG oral 1-12 capsule Seybol d Delayed 00:00: (40 mg - Release 00 total) by Externa Capsule mouth l daily Ketoconazol 2022-0 Yes [id number] Apply to Lolly e 2 % apply 1-12 affected Seyb old externally 00:00: area twice - Cream 00 daily for Externa 10 days l Omeprazole 2022-0 Yes [id number] 40mg Take 1 Lolly 40 MG oral 1-12 capsule Seybol d Delayed 00:00: (40 mg - Release 00 total) by Externa Capsule mouth l daily Ketoconazol 2022-0 Yes [id number] Apply to Lolly e 2 % apply 1-12 affected Seyb old externally 00:00: area twice - Cream 00 daily for Externa 10 days l Omeprazole 2022-0 Yes [id number] 40mg Take 1 Lolly 40 MG oral 1-12 capsule Seybol d Delayed 00:00: (40 mg - Release 00 total) by Externa Capsule mouth l daily OZEMPIC 2022-0 Yes [id number] .25mg Inject Los sey (0.25 or 1-12 0.25 mg Seybold 0.5 00:00: into the - mg/dose) 2 00 skin once Exte rna mg/1.5 mL a week l SQ Solution Pen-Injecto r Ketoconazol Yes [id number] Apply to Lolly e 2 % apply -12 affected Seyb old externally 00:00: area twice - Cream 00 daily for Externa 10 days l Omeprazole Yes [id number] 40mg Take 1 Lolly 40 MG oral 08-19 capsule Seybol d Delayed 00:00: (40 mg - Release 00 total) by Externa Capsule mouth l daily OZEMPIC 2022- No [id number] .25mg Inject Ke lsey (0.25 or 08-19 0.25 mg Seybold 0.5 00:00: 00:00 into the - mg/dose) 2 00 :00 skin once Exte rna mg/1.5 mL a week l SQ Solution Pen-Injecto r Insulin Yes Trerogelio Lolly Degludec 08-11 FlexTouch Seybol d (Tresiba 00:00: U-200 - FlexTouch) 00 insulin Compliance Analyst a 200 UNIT/ML 200 l subcutaneou unit/mL (3 s Solution mL) Pen-injecto subcutaneo r us pen INJECT 56 UNITS SUBCUTANEO USLY TWICE A DAY. Insulin Yes Treiselaba Lolly Degludec 08-11 FlexTouch Seybol d (Tresiba 00:00: U-200 - FlexTouch) 00 insulin Compliance Analyst a 200 UNIT/ML 200 l subcutaneou unit/mL (3 s Solution mL) Pen-injecto subcutaneo r us pen INJECT 56 UNITS SUBCUTANEO USLY TWICE A DAY. Insulin 2022- No Trerogelio Lolly Degludec - 03-09 FlexTouch Seybo ld (Tresiba 00:00: 00:00 U-200 - FlexTouch) 00 :00 insulin Compliance Analyst a 200 UNIT/ML 200 l subcutaneou unit/mL [...] SUBQ) times a day. Atorvastati 2021-08 Yes [id number] atorvastamalik Ambrocio n Calcium 1-03 in 80 mg Seybol d 80 MG oral 00:00: tablet - Tablet 00 TAKE ONE Externa (1) l TABLET(S) BY MOUTH ONCE A DAY AT BEDTIME. Amlodipine 2021-08 Yes [id number] 10mg Take 1 K elsey Besylate 10 1-03 tablet (10 Se ybold MG oral 00:00: mg total) - Tablet 00 by mouth Externa daily l Irbesartan 2021-08 Yes [id number] 300mg Take 1 Lolly 300 MG oral 1-03 tablet Seybol d Tablet 00:00: (300 mg - 00 total) by Externa mouth l nightly Atorvastati 2021-08 Yes [id number] atorvastat Lolly n Calcium 1-03 in 80 mg Seybol d 80 MG oral 00:00: tablet - Tablet 00 TAKE ONE Externa (1) l TABLET(S) BY MOUTH ONCE A DAY AT BEDTIME. Amlodipine 2021-08 Yes [id number] 10mg Take 1 K elsey Besylate 10 1-03 tablet (10 Se ybold MG oral 00:00: mg total) - Tablet 00 by mouth Externa daily l Irbesartan 2021-08 Yes [id number] 300mg Take 1 Lolly 300 MG oral 1-03 tablet Seybol d Tablet 00:00: (300 mg - 00 total) by Externa mouth l nightly Atorvastati 2021-08 Yes [id number] atorvastat Lolly n Calcium 1-03 in 80 mg Seybol d 80 MG oral 00:00: tablet - Tablet 00 TAKE ONE Externa (1) l TABLET(S) BY MOUTH ONCE A DAY AT BEDTIME. Amlodipine 2021-08 Yes [id number] 10mg Take 1 K elsey Besylate 10 1-03 tablet (10 Se ybold MG oral 00:00: mg total) - Tablet 00 by mouth Externa daily l Irbesartan 2021-08 Yes [id number] 300mg Take 1 Lolly 300 MG oral 1-03 tablet Seybol d Tablet 00:00: (300 mg - 00 total) by Externa mouth l nightly Atorvastati 2021-08 Yes [id number] atorvastat Lolly n Calcium 1-03 in 80 mg Seybol d 80 MG oral 00:00: tablet - Tablet 00 TAKE ONE Externa (1) l TABLET(S) BY MOUTH ONCE A DAY AT BEDTIME. Atorvastati 2021-08 Yes [id number] atorvastat Lolly n Calcium 1-03 in 80 mg Seybol d 80 MG oral 00:00: tablet - Tablet 00 TAKE ONE Externa (1) l TABLET(S) BY MOUTH ONCE A DAY AT BEDTIME. Amlodipine 2021-08 Yes [id number] 10mg Take 1 K elsey Besylate 10 1-03 tablet (10 Se ybold MG oral 00:00: mg total) - Tablet 00 by mouth Externa daily l Irbesartan 2021-08 Yes [id number] 300mg Take 1 Lolly 300 MG oral 1-03 tablet Seybol d Tablet 00:00: (300 mg - 00 total) by Externa mouth l nightly Levothyroxi 2021-08 Yes [id number] 75ug Take 1 Lolly ne Sodium 0-12 tablet (75 Seyb old 75 MCG oral 00:00: mcg total) - Tablet 00 by mouth Externa daily l Levothyroxi 2021-08 Yes [id number] 75ug Take 1 Lolly ne Sodium 0-12 tablet (75 Seyb old 75 MCG oral 00:00: mcg total) - Tablet 00 by mouth Externa daily l Levothyroxi 2021-08 Yes [id number] 75ug Take 1 Lolly ne Sodium 0-12 tablet (75 Seyb old 75 MCG oral 00:00: mcg total) - Tablet 00 by mouth Externa daily l Levothyroxi 2021-08 Yes [id number] 75ug Take 1 Lolly ne Sodium 0-12 tablet (75 Seyb old 75 MCG oral 00:00: mcg total) - Tablet 00 by mouth Externa daily l GlipiZIDE 2021-08 Yes [id number] 10mg Take 1 Ke lsey 10 MG oral 0-12 tablet (10 Sey bold TABLET SR 00:00: mg total) - 24 HR 00 by mouth Externa daily l Levothyroxi 2021-08 Yes [id number] 75ug Take 1 Lolly ne Sodium 0-12 tablet (75 Seyb old 75 MCG oral 00:00: mcg total) - Tablet 00 by mouth Externa daily l GlipiZIDE 2021-08- No [id number] 10mg Take 1 K elsey 10 MG [...] (Tresiba 08:17: U-200 - FlexTouch) 34 insulin Compliance Analyst a 200 UNIT/ML 200 l subcutaneou unit/mL [...] - 34 Externa l Ibuprofen 2021-08 Yes [id number] 600mg Q.[id number] Take 1 Lolly 600 MG oral 0-03 [id number] tablet Seybold Tablet 00:00: 3D (600 mg - 00 total) by Externa mouth l every 8 hours as needed for pain FLUTICASONE 2021-08 Yes [id number] 50ug Use 1 K elsey PROPIONATE, 0-03 spray (50 Sey bold NASAL, 50 00:00: mcg total) - MCG/ACT 00 in each Externa nasal nostril l Suspension daily Cetirizine 2021-08 Yes [id number] 10mg Take 1 K elsey HCl (ZyrTEC 0-03 capsule Seybo ld Allergy) 10 00:00: (10 mg - MG oral 00 total) by Externa Capsule mouth l daily Ibuprofen 2021-08 Yes [id number] 600mg Q.[id number] Take 1 Lolly 600 MG oral 0-03 [id number] tablet Seybold Tablet 00:00: 3D (600 mg - 00 total) by Externa mouth l every 8 hours as needed for pain FLUTICASONE 2021-08 Yes [id number] 50ug Use 1 K elsey PROPIONATE, 0-03 spray (50 Sey bold NASAL, 50 00:00: mcg total) - MCG/ACT 00 in each Externa nasal nostril l Suspension daily Cetirizine 2021-08 Yes [id number] 10mg Take 1 K elsey HCl (ZyrTEC 0-03 capsule Seybo ld Allergy) 10 00:00: (10 mg - MG oral 00 total) by Externa Capsule mouth l daily Ibuprofen 2021-08 Yes [id number] 600mg Q.[id number] Take 1 Lolly 600 MG oral 0-03 [id number] tablet Seybold Tablet 00:00: 3D (600 mg - 00 total) by Externa mouth l every 8 hours as needed for pain FLUTICASONE 2021-08 Yes [id number] 50ug Use 1 K elsey PROPIONATE, 0-03 spray (50 Sey bold NASAL, 50 00:00: mcg total) - MCG/ACT 00 in each Externa nasal nostril l Suspension daily Cetirizine 2021-08 Yes [id number] 10mg Take 1 K elsey HCl (ZyrTEC 0-03 capsule Seybo ld Allergy) 10 00:00: (10 mg - MG oral 00 total) by Externa Capsule mouth l daily Ibuprofen 2021-08 Yes [id number] 600mg Q.[id number] Take 1 Lolly 600 MG oral 0-03 [id number] tablet Seybold Tablet 00:00: 3D (600 mg - 00 total) by Externa mouth l every 8 hours as needed for pain FLUTICASONE 2021-08 Yes [id number] 50ug Use 1 K elsey PROPIONATE, 0-03 spray (50 Sey bold NASAL, 50 00:00: mcg total) - MCG/ACT 00 in each Externa nasal nostril l Suspension daily Cetirizine 2021-08 Yes [id number] 10mg Take 1 K elsey HCl (ZyrTEC 0-03 capsule Seybo ld Allergy) 10 00:00: (10 mg - MG oral 00 total) by Externa Capsule mouth l daily Ibuprofen 2021-08 Yes [id number] 600mg Q.[id number] Take 1 Lolly 600 MG oral 0-03 [id number] tablet Seybold Tablet 00:00: 3D (600 mg - 00 total) by Externa mouth l every 8 hours as needed for pain FLUTICASONE 2021-08 Yes [id number] 50ug Use 1 K elsey PROPIONATE, 0-03 spray (50 Sey bold NASAL, 50 00:00: mcg total) - MCG/ACT 00 in each Externa nasal nostril l Suspension daily Cetirizine 2021-08 Yes [id number] 10mg Take 1 K elsey HCl (ZyrTEC 0-03 capsule Seybo ld Allergy) 10 00:00: (10 mg - MG oral 00 total) by Externa Capsule mouth l daily Ibuprofen 2021-08 Yes [id number] 600mg Q.[id number] Take 1 Lolly 600 MG oral 0-03 [id number] tablet Seybold Tablet 00:00: 3D (600 mg - 00 total) by Externa mouth l every 8 hours as needed for pain FLUTICASONE 2021-08 Yes [id number] 50ug Use 1 K elsey PROPIONATE, 0-03 spray (50 Sey bold NASAL, 50 00:00: mcg total) - MCG/ACT 00 in each Externa nasal nostril l Suspension daily Cetirizine 2021-08 Yes [id number] 10mg Take 1 K elsey HCl (ZyrTEC 0-03 capsule Seybo ld Allergy) 10 00:00: (10 mg - MG oral 00 total) by Externa Capsule mouth l daily Levothyroxi 2021- Yes 75ug Take 75 Los sey ne Sodium 9-12 mcg by Seybold 75 MCG oral 00:00: mouth - Tablet 00 daily Externa l GlipiZIDE Yes 10mg Take 10 mg Ke lsey 10 MG oral 7-21 by mouth Seybo ld TABLET SR 00:00: daily - 24 HR 00 Externa l irbesartan 2021- Yes 300mg QD Take 300 [facility] [...] Center INSULIN (two) SUBQ) times daily. irbesartan 2022-0 Yes 300mg QD Take [address] (AVAPRO) 5-19 mg by [facility] 300 MG 19:11: mouth Medical tablet 36 nightly . Center omeprazole Yes 40mg QD Take [address] (PRILOSEC) 5-19 by mouth [facility] 40 MG 19:11: daily. Medical capsule 36 Center levothyroxi 0 Yes 75ug Take [address] ne [...] by mouth ity of capsule 16:56: at [place] [address] bedtime. Medical Branch irbesartan Yes 300mg Take 300 Un jeffry 300 mg 3-03 mg by ity of tablet 16:56: mouth at [place] [address] bedtime. Medical Branch metFORMIN Yes 1000mg Take 1,000 Univers 1,000 mg 24 3-03 mg by ity of hr tablet 16:56: mouth [place] [address] daily with Medical breakfast. Branch insulin Yes 56U inject 56 Unive rs detemir 3-03 Units ity of U-100 100 16:56: under the [place] as unit/mL 41 skin. Medical injection Branch amLODIPine Yes 10mg Take 10 mg U nivers 10 mg 3-03 by mouth ity of tablet 16:56: every [place] [address] morning. Medical Branch aspirin 81 Yes 81mg Take 81 mg U nivers mg chewable 3-03 by mouth ity of tablet 16:56: daily. [place] [address] Medical Branch atorvastati Yes 80mg Take 80 mg Univers n 80 mg 3-03 by mouth ity of tablet 16:56: daily. [place] [address] Medical Branch levothyroxi Yes 75ug Take 75 Uni vers ne 100 mcg 3-03 mcg by ity of tablet 16:56: mouth. [place] [address] Medical Branch amLODIPine 2019-08 Yes 10mg Take 10 mg U nivers 10 mg 1-23 by mouth ity of tablet 14:22: every [place] [address] morning. Medical Branch aspirin 81 2019-08 Yes 81mg Take 81 mg U nivers mg chewable 1-23 by mouth ity of tablet 14:22: daily. [place] [address] Medical Branch atorvastati 2019-08 Yes 80mg Take 80 mg Univers n 80 mg 1-23 by mouth ity of tablet 14:22: daily. [place] [address] Medical Branch levothyroxi 2019- Yes 75ug Take 75 Uni vers ne 100 mcg 1-23 mcg by ity of tablet 14:22: mouth. [place] [address] Medical Branch omeprazole 2019- Yes 40mg Take 40 mg U nivers 40 mg 1-23 by mouth ity of capsule 14:22: at [place] [address] bedtime. Medical Branch irbesartan 2019- Yes 300mg Take 300 Un jeffry 300 mg 1-23 mg by ity of tablet 14:22: mouth at [place] [address] bedtime. Medical Branch metFORMIN 2019- Yes 1000mg Take 1,000 Univers 1,000 mg 24 1-23 mg by ity of hr tablet 14:22: mouth [place] [address] daily with Medical breakfast. Branch insulin 2019-08 Yes 56U inject 56 Unive rs detemir 1-23 Units ity of U-100 100 14:22: under the [place] as unit/mL 13 skin. Medical injection Branch amLODIPine 2019- Yes 10mg Take 10 mg U nivers 10 mg 1-23 by mouth ity of tablet 14:22: every [place] [address] morning. Medical Branch aspirin 81 2019- Yes 81mg Take 81 mg U nivers mg chewable 1-23 by mouth ity of tablet 14:22: daily. [place] [address] Medical Branch atorvastati 2019-08 Yes 80mg Take 80 mg Univers n 80 mg 1-23 by mouth ity of tablet 14:22: daily. [place] [address] Medical Branch levothyroxi 2019- Yes 75ug Take 75 Uni vers ne 100 mcg 1-23 mcg by ity of tablet 14:22: mouth. [place] [address] Medical Branch omeprazole 2019- Yes 40mg Take 40 mg U nivers 40 mg 1-23 by mouth ity of capsule 14:22: at [place] [address] bedtime. Medical Branch irbesartan 2019- Yes 300mg Take 300 Un jeffry 300 mg 1-23 mg by ity of tablet 14:22: mouth at [place] [address] bedtime. Medical Branch metFORMIN 2019- Yes 1000mg Take 1,000 Univers 1,000 mg 24 1-23 mg by ity of hr tablet 14:22: mouth [place] [address] daily with Medical breakfast. Branch insulin 2019- [...] Push, ity of (PF)) 13:57: PRN, 1 [place] injection 4 11 dose, Medical mg Starting Branch Tue06/30/20 at 0757, Until Discontinu ed, Routine, Nausea and Vomiting (N/V), PACU triamcinolo 2019-08 Yes PRN, [facility] s ne 08-30 Starting ity of acetonide 13:35: [facility] (KENALOG) 06/30/20 Medica l injection at 0735, Branch Until Discontinu ed, Routine, Intra-op iohexoL 2019-08 Yes PRN, [facility] (OMNIPAQUE 08-30 Starting ity o f 350 BULK-50 13:35: Mon [place] mL) 06/30/20 Medical injection at 0735, Branch Until Discontinu ed, Routine, Intra-op bupivacaine 2019-08 Yes PRN, [facility] (preserv 08-30 Starting ity of free) 13:35: [facility] (SENSORCAIN 06/30/20 Medi mookie E MPF) 0.25 at 0735, Bran ch % (2.5 Until mg/mL) Discontinu injection ed, Routine, Intra-op lidocaine 2019-08 Yes PRN, Univers 1% 08-30 Starting ity of (XYLOCAINE) 13:34: [facility] 10 mg/mL (1 06/30/20 Medi mookie %) at 0734, Branch injection Until Discontinu ed, Routine, Intra-op lactated 2019-08 2020- No 1000mL at 42 Unive rs ringers IV - 11-23 mL/hr, ity of infusion 13:00: 13:11 1,000 mL, [place] as 1,000 mL 00 :00 IV Medical Infusion, Branch ONCE, 1 dose, [facility] 06/30/20 at 0700, Routine, [facility] Pre-op irbesartan 2019-08 Yes 300mg Take 300 Un jeffry 300 mg 1-19 mg by ity of tablet 21:00: mouth at [place] [address] bedtime. Medical Branch metFORMIN 2019-08 Yes 1000mg Take 1,000 Univers 1,000 mg 24 1-19 mg by ity of hr tablet 21:00: mouth [place] [address] daily with Medical breakfast. Branch insulin 2019-08 Yes 56U inject 56 Unive rs detemir 1-19 Units ity of U-100 100 21:00: under the [place] as unit/mL 24 skin. Medical injection Branch aspirin 81 2019-08 Yes 81mg Take 81 mg U nivers mg chewable 1-19 by mouth ity of tablet 21:00: daily. [place] [address] Medical Branch atorvastati 2019-08 Yes 80mg Take 80 mg Univers n 80 mg 1-19 by mouth ity of tablet 21:00: daily. [place] [address] Medical Branch levothyroxi 2019-08 Yes 75ug Take 75 Uni vers ne 100 mcg 1-19 mcg by ity of tablet 21:00: mouth. [place] [address] Medical Branch omeprazole 2019-08 Yes 40mg Take 40 mg U nivers 40 mg 1-19 by mouth ity of capsule 21:00: at [place] [address] bedtime. Medical Branch amLODIPine 2019-08 Yes 10mg Take 10 mg U nivers 10 mg 1-19 by mouth ity of tablet 20:54: every [place] [address] morning. Medical Branch Vital Signs Vital Name Observation Time Observation Value Comments Source HEIGHT 2020-12-25 07:38:00 165.1 cm WEIGHT 2020-12-25 07:38:00 104.237 kg WEIGHT 2020-12-23 12:01:00 105.688 kg HEIGHT 2020-12-23 12:01:00 165.1 cm Systolic blood 2022-12-24 18:33:00 140 mm[Hg] Lolly Duff - pressure External Diastolic blood 2022-12-24 18:33:00 97 mm[Hg] Perlita Duff - pressure External Heart rate 2022-12-24 18:33:00 94 /min Lolly harvey - External Body temperature 2022-12-24 18:33:00 36.61 Carmen Karissa Duff - External Respiratory rate 2022-12-24 18:33:00 15 /min Karissa ey Seybold - External Body height 2022-12-24 18:33:00 165.1 cm Lolly S eybold - External Body weight 2022-12-24 18:33:00 93.441 kg Lolly S eybold - External BMI 2022-12-24 18:33:00 34.28 kg/m2 Lolly S eybold - External Oxygen saturation in 2022-12-24 18:33:00 97 /min Lolly Seybold - Arterial blood by External Pulse oximetry Systolic blood 2022-11-11 12:49:00 166 mm[Hg] Lolly Seybold - pressure External Diastolic blood 2022-11-11 12:49:00 74 mm[Hg] Losse y Seybold - pressure External Heart rate 2022-11-11 12:49:00 108 /min Lolly S eybold - External Body temperature 2022-11-11 12:49:00 35.89 Carmen Karissa ey Seybold - External Respiratory rate 2022-11-11 12:49:00 15 /min Karissa ey Seybold - External Body height 2022-11-11 12:49:00 165.1 cm Lolly S eybold - External Body weight 2022-11-11 12:49:00 97.523 kg Lolly S eybold - External BMI 2022-11-11 12:49:00 35.78 kg/m2 Lolly S eybold - External Systolic blood 2022-10-14 13:54:00 172 mm[Hg] Lolly Seybold - pressure External Diastolic blood 2022-10-14 13:54:00 78 mm[Hg] Losse y Seybold - pressure External [...] External Diastolic blood 2022-08-19 14:02:00 83 mm[Hg] Losse y Seybold - pressure External Heart rate 2022-08-19 14:02:00 78 /min Lolly S eybold - External Body temperature 2022-08-19 14:02:00 36.61 Carmen Karissa ey Seybold - External Respiratory rate 2022-08-19 14:02:00 15 /min Karissa ey Seybold - External Systolic blood 2022-05-10 13:06:00 144 mm[Hg] Lolly Seybold - pressure External Diastolic blood 2022-05-10 13:06:00 82 mm[Hg] Losse y Seybold - pressure External Heart rate 2022-05-10 13:06:00 [...] 14:00:00 123 mm[Hg] Univer sity of pressure [facility] Diastolic blood 2020-06-30 14:00:00 67 mm[Hg] Unive rsity of pressure [facility] Heart rate 2020-06-30 14:00:00 71 /min Universi [facility] Body temperature 2020-06-30 14:00:00 36.67 Carmen Univ ersity [facility] Respiratory rate 2020-06-30 14:00:00 18 /min [facility] O[facility] saturation in 2020-06-30 14:00:00 95 /min University Arterial blood by [facility] Pulse oximetry Branch Body height 2020-06-27 18:02:00 165.1 cm [facility] [place] [facility] [place] Body weight 2020-06-27 18:02:00 102.1 kg [facility] [place] [facility] [place] BMI 2020-06-27 18:02:00 37.46 kg/m2 [facility] [place] [facility] [place] Systolic blood 2020-06-30 14:00:00 123 mm[Hg] Univer sity of pressure [facility] Diastolic blood 2020-06-30 14:00:00 67 mm[Hg] Unive rsity of pressure [facility] Heart rate 2020-06-30 14:00:00 71 /min Universi ty of [facility] Body temperature 2020-06-30 14:00:00 36.67 Carmen Univ ersity of [facility] Respiratory rate 2020-06-30 14:00:00 18 /min [facility] Oxygen saturation in 2020-06-30 14:00:00 95 /min [facility] Arterial blood by [facility] Pulse oximetry [place] Body height 2020-06-27 18:02:00 165.1 cm Universi ty of [facility] Body weight 2020-06-27 18:02:00 102.1 kg Universi ty [facility] BMI 2020-06-27 18:02:00 37.46 kg/m2 Universi ty [facility] Systolic blood 2022-07-20 02:00:00 152 mm[Hg] [facility] pressure Diastolic blood 2022-07-20 02:00:00 66 mm[Hg] [facility] pressure Heart rate 2022-07-20 02:00:00 72 /min [facility] Respiratory rate 2022-07-20 02:00:00 14 /min [facility] Oxygen saturation in 2022-07-20 02:00:00 97 /min [facility] Arterial blood by Pulse oximetry Body temperature 2022-07-19 22:30:00 36.22 Carmen [facility] Body height 2022-07-19 19:16:00 165.1 cm [facility] Body weight 2022-07-19 19:16:00 103.556 kg [facility] BMI 2022-07-19 19:16:00 37.99 kg/m2 [facility] Systolic blood 2021-12-24 18:35:00 141 mm[Hg] [facility] Diastolic blood 2021-12-24 18:35:00 60 mm[Hg] [facility] Heart rate 2021-12-24 18:35:00 74 /min [facility] Body temperature 2021-12-24 18:35:00 36.56 Carmen [facility] Respiratory rate 2021-12-24 18:35:00 16 /min [facility] Oxygen saturation in 2021-12-24 18:35:00 92 /min [facility] Arterial blood by Medical Ce nter Pulse oximetry Body height 2021-12-24 13:30:00 165.1 cm [facility] Body weight 2021-12-24 13:30:00 104.327 kg [facility] BMI 2021-12-24 13:30:00 38.27 kg/m2 [facility] Procedures Procedure Date / Time Performing Source Performed Clinician POC GLUCOSE 2022-07-19 22:38:00 Shanta Trimble spital CV LEFT HEART CATH LV GRAM 2022-07-19 22:17:35 [facility]IM[facility] GFR 2022-07-19 20:27:00 Shanta Trimble spital POC PANEL 2022-07-19 20:27:00 Shanta Trimble spital CBC WITH PLATELET AND 2022-07-19 20:22:00 Shanta Trimble [facility] DIFFERENTIAL POC GLUCOSE 2022-07-19 19:14:00 Shanta Trimble spital ECG PRE/POST OP 2022-07-19 18:52:15 Shanta Trimble spital QUANTAFLO 2022-05-10 13:29:52 Preston Stuart - External INSURANCE CORRESPONDENCE 2022-03-03 05:01:00 Doctor Unassigned, [facility] REPORT OF PROCEDURE - 2021-12-24 17:40:33 John Burciaga [facility] ENDOSCOPY [facility] [place] ERCP 2021-12-24 17:40:00 John Burciaga [facility] ENDOSCOPIC RETROGRADE 2021-12-24 17:13:00 John Burciaga [facility] CHOLANGIOPANCREATOGRAPHY, [facility] WITH DIRECT DUCT VISUALIZATION, USING PANCREATICOBILIARY FIBEROPTIC PROBE PROCEDURE W/ C-ARM 2021-12-24 17:13:00 John Burciaga [facility] POCT-GLUCOSE METER 2021-12-24 14:20:00 John Burciaga [facility] CBC WITH DIFF 2020-06-30 13:02:00 Chema Deleon [facility] POCT GLUCOSE(AGE >30DAYS) 2020-06-30 12:55:[address] [facility] 2020-06-30 06:01:00 Doctor Unassigned, [facility] Plan of Care Planned Activity Planned Date Details Comments Source Future Scheduled 2023-04-[address] [facility] 00:00:00 (Season Ended) [code = [facility] INFLUENZA VACCINE (Season Ended)] Future Scheduled 2023-04-[address] [facility] 00:00:00 (Season Ended) [code = [facility] INFLUENZA VACCINE (Season Ended)] Future Scheduled 2023-04-[address] [facility] 00:00:00 (Season Ended) [code = [facility] INFLUENZA VACCINE (Season Ended)] Future Scheduled [...] [facility] 00[facility]:00 measurement (procedure) [facility] Center [code = 66685733] Future Scheduled 2019-02-[address] [facility] 00:00:00 measurement (procedure) [facility] [code = 03778201] Future Scheduled 2019-02-[address] [facility] 00:00:00 measurement (procedure) [facility] Center [code = 13743002] Future Scheduled 2019-02-[address] [facility] 00:00:00 measurement (procedure) [facility] Center [code = 77098996] Future Scheduled 2019-02-[address] [facility] 00:00:00 measurement (procedure) [facility]i [facility] Center [code = 88927641] Future Scheduled 2019-02-[address] [facility] 00:00:00 measurement (procedure) [facility] Center [code = 79976417] Future Scheduled 1999 SHINGLES VACCINES (1 of [...] 00:00:00 examination Medical Center (regime/therapy) [code = 515440330] Future Scheduled 1959 Urine screening for [facility] 00:00:00 protein (procedure) Medical Center [code = 786224700] Future Scheduled 1959 DIABETIC EYE EXAM [code [facility] 00:00:00 = DIABETIC EYE EXAM] Medical Center Future Scheduled [address] [facility] 00:00:00 examination Medical Center (regime/therapy) [code = 040834562] Future Scheduled 1959 Urine screening for [facility] 00:00:00 protein (procedure) Medical Center [code = 306941273] Future Scheduled 1959 DIABETIC EYE EXAM [code [facility] 00:00:00 = DIABETIC EYE EXAM] Medical Center Future Scheduled [address] [facility] 00:00:00 examination Medical Center (regime/therapy) [code = 503590572] Future Scheduled 1959 Urine screening for [facility] 00:00:00 protein (procedure) Medical Center [code = 522383659] Future Scheduled 1959 DIABETIC EYE EXAM [code [facility] 00:00:00 = DIABETIC EYE EXAM] Medical Center Future Scheduled [address] [facility] 00:00:00 examination Medical Center (regime/therapy) [code = 592110782] Future Scheduled 1959 Urine screening for [facility] 00:00:00 protein (procedure) Medical Center [code = 989578222] Future Scheduled 1959 DIABETIC EYE EXAM [code [facility] 00:00:00 = DIABETIC EYE EXAM] Medical Center Future Scheduled [address] [facility] 00:00:00 examination Medical Center (regime/therapy) [code = 629134055] Future Scheduled 1959 Urine screening for [facility] 00:00:00 protein (procedure) Medical Center [code = 975700517] Future Scheduled 1959 DIABETIC EYE EXAM [code [facility] 00:00:00 = DIABETIC EYE EXAM] Medical Center Future Scheduled [address] [facility] 00:00:00 examination Medical Center (regime/therapy) [code = 859836074] Future Scheduled 1959 Urine screening for [facility] 00:00:00 protein (procedure) Medical Center [code = 531139700] Future Scheduled 1949 COVID-19 VACCINE (#1) [facility] 00:[facility]:00 [code = COVID-[address] VACCINE (#1)] Future Scheduled 1949 COVID-19 [...] breast Medical C enter (procedure) [code = 107227403] Future Scheduled 1949 CT Colonography (combo) [facility] 00:00:00 [code = CT Colonography [facility] (combo)] Future Scheduled 1949 Screening for malignant [facility] 00:00:00 neoplasm of colon Medical Ce nter (procedure) [code = 634327749] Future Scheduled 1949 Screening for malignant [facility] Test 00:00:00 neoplasm of colon Medical Ce nter (procedure) [code = 032386174] Future Scheduled 1949 DXA SCAN [code = DXA [facility] 00:00:00 SCAN] Medical Center Future Scheduled 1949 Screening for malignant [facility] 00:00:00 neoplasm of colon Medical Ce nter (procedure) [code = 766139481] Future Scheduled 1949 Screening for malignant [facility] 00:00:00 neoplasm of colon Medical Ce nter (procedure) [code = 128536748] Future Scheduled 1949 Sigmoidoscopy [facility]code [facility] Scre[facility] for malignant [facility] 00:00:00 neoplasm of breast Medical C enter (procedure) [code = 107828319] Future Scheduled 1949 CT Colonography (combo) [facility] 00:00:00 [code = CT Colonography [facility] (combo)] Future Scheduled 1949 Screening for malignant [facility] 00:00:00 neoplasm of colon Medical Ce nter (procedure) [code = 860840441] Future Scheduled 1949 Screening for malignant [facility] 00:00:00 neoplasm of colon Medical Ce nter (procedure) [code = 612421496] Future Scheduled 1949 DXA SCAN [code = DXA [facility] 00:00:00 SCAN] [facility] Future Scheduled 1949 Screening for malignant [facility] 00:00:00 neoplasm of colon Medical Ce nter (procedure) [code = 743409308] Future Scheduled 1949 Screening for malignant [facility] 00:00:00 neoplasm of colon Medical Ce nter (procedure) [code = 241519569] Future Scheduled 1949 Sigmoidoscopy [code = [facility] Screening for malignant [facility] Test 00:00:00 neoplasm of breast Medical C enter (procedure) [code = 275593057] Future Scheduled 1949 CT Colonography (combo) [facility] 00:00:00 [code = CT Colonography [facility] (combo)] Future Scheduled 1949 Screening for malignant [facility] Test 00:00:00 neoplasm of colon Medical Ce nter (procedure) [code = 620985652] Future Scheduled 1949 Screening for malignant [facility] Test 00:00:00 neoplasm of colon Medical Ce nter (procedure) [code = 667068808] Future Scheduled 1949 DXA SCAN [code = DXA [facility] 00:00:00 SCAN] [facility] Future Scheduled 1949 Screening for malignant [facility] 00:00:00 neoplasm of colon Medical Ce nter (procedure) [code = 801264246] Future Scheduled 1949 Screening for malignant [facility] Test 00:00:00 neoplasm of colon Medical Ce nter (procedure) [code = 687591568] Future Scheduled 1949 Sigmoidoscopy [code = [facility] 00:[facility] Sigmoidoscopy] [facility] Future Scheduled 1949 Screening for malignant [facility] Test 00:00:00 neoplasm of breast Medical C enter (procedure) [code = 274796137] Future Scheduled 1949 CT Colonography (combo) [facility] 00:00:00 [code = CT Colonography [facility] (combo)] Future Scheduled 1949 Screening for malignant [facility] 00:00:00 neoplasm of colon Medical Ce nter (procedure) [code = 169967832] Future Scheduled 1949 Screening for malignant [facility] Test 00:00:00 neoplasm of colon Medical Ce nter (procedure) [code = 528842360] Future Scheduled 1949 DXA SCAN [code = DXA [facility] 00:00:00 SCAN] [facility] Future Scheduled 1949 Screening for malignant [facility] 00:00:00 neoplasm of colon Medical Ce nter (procedure) [code = 572674955] Future Scheduled 1949 Screening for malignant [facility] 00:00:00 neoplasm of colon Medical Ce nter (procedure) [code = 953972488] Future Scheduled 1949 Sigmoidoscopy [code = [facility] 00:[facility] S[facility]oscopy] [facility] Future Scheduled 1949 Screening for malignant [facility] 00:00:00 neoplasm of breast Medical C enter (procedure) [code = 183123170] Future Scheduled 1949 CT Colonography (combo) [facility] 00:00:00 [code = CT Colonography [facility] (combo)] Future Scheduled 1949 Screening for malignant [facility] 00:00:00 neoplasm of colon Medical Ce nter (procedure) [code = 587737878] Future Scheduled 1949 Screening for malignant [facility] 00:00:00 neoplasm of colon Medical Ce nter (procedure) [code = 699373423] Future Scheduled 1949 DXA SCAN [code = DXA [facility] 00:00:00 SCAN] [facility] Future Scheduled 1949 Screening for malignant [facility] 00:00:00 neoplasm of colon Medical Ce nter (procedure) [code = 984003811] Future Scheduled 1949 Screening for malignant [facility] Test 00:00:00 neoplasm of colon Medical Ce nter (procedure) [code = 634495774] Future Scheduled 1949 Sigmoidoscopy [code = [facility] 00:00:00 Sigmoidoscopy] [facility] Future Scheduled 1949 Screening for malignant [facility] Test 00:00:00 neoplasm of breast Medical C enter (procedure) [code = 956167998] Future Scheduled 1949 CT Colonography (combo) [facility] 00:00:00 [code = CT Colonography [facility] (combo)] Future Scheduled 1949 Screening for malignant [facility] 00:00:00 neoplasm of colon Medical Ce nter (procedure) [code = 672227253] Future Scheduled 1949 Screening for malignant [facility] 00:00:00 neoplasm of colon Medical Ce nter (procedure) [code = 253246296] Future Scheduled 1949 DXA SCAN [code = DXA [facility] 00:00:00 SCAN] [facility] Future Scheduled 1949 Screening for malignant [facility] Test 00:00:00 neoplasm of colon Medical Ce nter (procedure) [code = 122125434] Future Scheduled 1949 Screening for malignant [facility] Test 00:00:00 neoplasm of colon Medical Ce nter (procedure) [code = 922557789] Future Scheduled 1949 Sigmoidoscopy [code = [facility] 00:[facility] Sigmoidoscopy] Medical Bijan finley Encounters Start End Encounter Admission Attending Care Care Encounter Source Date/Time Date/Time Type Type Clinicians Facility Department ID 2021-06-06 Outpatient R [facility]CHO [facility] [id number] [facility] 06:09:27 CHEMA roberts [facility] 2021-05-16 Outpatient PATRICA [facility] Surgery [id number] [facility] 21:10:52 JOHN 2023-02-11 2023-02-11 Outpatient LOLLY STUART [id number] Lolly 08:00:00 08:00:00 PRESTON Seybol d 2023-01-21 2023-01-21 Outpatient LOLLY STUART [id number] Lolly 13:45:00 13:45:00 PRESTON Seybol d 2023-01-07 2023-01-07 Outpatient LOLLY STUART [id number] Lolly 00:00:00 00:00:00 PRESTON Seybol d 2022-12-24 2022-12-24 Outpatient LOLLY STUART [id number] Lolly 16:45:00 16:45:00 PRESTON Seybol d 2022-12-22 2022-12-22 Outpatient LOLLY AMBROCIO [id number] Lolly 00:00:00 00:00:00 Seybol d 2022-12-22 2022-12-22 Outpatient LOLLY AMBROCIO [id number] Lolly 00:00:00 00:00:00 Seybol d 2022-12-21 2022-12-21 Outpatient LOLLY STUART [id number] Lolly 00:00:00 00:00:00 PRESTON Seybol d 2022-12-21 2022-12-21 Outpatient LOLLY AMBROCIO [id number] Lolly 00:00:00 00:00:00 Seybol d 2022-12-21 2022-12-21 Outpatient LOLLY STUART [id number] Lolly 00:00:00 00:00:00 PRESTON Seybol d 2022-12-17 2022-12-17 Outpatient PREZAS, LOLLY AMBROCIO [id number] Lolly 00:00:00 00:00:00 PRESTON Seybol d 2022-12-17 2022-12-17 Outpatient LOLLY AMBROCIO [id number] Lolly 00:00:00 00:00:00 Seybol d 2022-12-14 2022-12-14 Outpatient PREZAS, LOLLY AMBROCIO [id number] Lolly 00:00:00 00:00:00 PRESTON Seybol d 2022-12-08 2022-12-08 Outpatient PREZAS, LOLLY AMBROCIO [id number] Lolly 00:00:00 00:00:00 PRESTON Seybol d 2022-11-25 2022-11-25 Outpatient PREZAS, LOLLY AMBROCIO [id number] Lolly 00:00:00 00:00:00 PRESTON Seybol d 2022-11-25 2022-11-25 Outpatient PREZAS, LOLLY AMBROCIO [id number] Lolly 00:00:00 00:00:00 PRESTON Seybol d 2022-11-15 2022-11-15 Outpatient LAB90 LOLLY AMBROCIO [id number] Lolly 08:05:00 08:05:00 Seybol d 2022-11-11 2022-11-11 Outpatient PREZAS, LOLLY AMBROCIO [id number] Lolly 09:00:00 09:00:00 PRESTON Seybol d 2022-11-05 2022-11-05 Outpatient LAB90 LOLLY AMBROCIO [id number] Lolly 13:30:00 13:30:00 Seybol d 2022-11-05 2022-11-05 Outpatient PREZAS, LOLLY AMBROCIO [id number] Lolly 00:00:00 00:00:00 PRESTON Seybol d 2022-11-05 2022-11-05 Outpatient PREZASLOLLY [id number] Lolly 00:00:00 00:00:00 PRESTON Seybol d 2022-10-18 2022-10-18 Outpatient PREZAS, LOLLY AMBROCIO [id number] Lolly 00:00:00 00:00:00 PRESTON Seybol d 2022-10-18 2022-10-18 Outpatient PREZAS, LOLLY AMBROCIO [id number] Lolly 00:00:00 00:00:00 PRESTON Seybol d 2022-10-15 2022-10-15 Outpatient PREZAS, LOLLY AMBROCIO [id number] Lolly 00:00:00 00:00:00 PRESTON Seybol d 2022-10-14 2022-10-14 Outpatient LAB90 LOLLY AMBROCIO [id number] Lolly 09:00:00 09:00:00 Seybol d 2022-10-14 2022-10-14 Outpatient PREZAS, LOLLY AMBROCIO [id number] Lolly 08:30:00 08:30:00 PRESTON Seybol d 2022-10-12 2022-10-12 Outpatient LAB90 LOLLY AMBROCIO [id number] Lolly 08:05:00 08:05:00 Seybol d 2022-10-12 2022-10-12 Outpatient PREZAS, LOLLY AMBROCIO [id number] Lolly 00:00:00 00:00:00 PRESTON Seybol d 2022-09-27 2022-09-27 Outpatient PREZAS, LOLLY AMBROCIO [id number] Lolly 00:00:00 00:00:00 PRESTON Seybol d 2022-09-27 2022-09-27 Outpatient PREZAS, LOLLY AMBROCIO [id number] Lolly 00:00:00 00:00:00 PRESTON Seybol d 2022-09-16 2022-09-16 Outpatient PREZAS, LOLLY AMBROCIO [id number] Lolly 08:00:00 08:00:00 PRESTON Seybol d 2022-08-20 2022-08-20 Outpatient PREZAS, LOLLY AMBROCIO [id number] Lolly 00:00:00 00:00:00 PRESTON Seybol d 2022-08-19 2022-08-19 Outpatient PREZAS, LOLLY AMBROCIO [id number] Lolly 09:00:00 09:00:00 PRESTON Seybol d 2022-08-11 2022-08-11 Outpatient PREZAS, LOLLY LOLLY [id number] Lolly 00:00:00 00:00:00 PRESTON Seybol d 2022-08-10 2022-08-10 Outpatient LOLLY STUART LOLLY [id number] Lolly 08:15:00 08:15:00 PRESTON Seybol d 2022-07-19 2022-07-19 Hospital Attar, 1.2.840.1 [id number] Methodi 12:13:00 20:37:00 Encounter Shanta 43372.1.1 923 s t 3.430.2.7 Hospit a .3.453777 l .8 2022-07-19 2022-07-19 [facility] Attwi, 1.2.840.1 [id number] Methodi 12:13:00 20:37:00 Encounter Shanta 68269.1.1 923 s t 3.430.2.7 Hospit a .3.857794 l .8 2022-07-19 2022-07-19 Surgery Attar, 1.2.840.1 [id number] Methodi 15:20:00 16:40:[address] 3.430.2.7 Hospit a .3.086899 l .8 2022-07-19 2022-07-19 Surgery Attar, 1.2.840.1 [id number] Methodi 15:20:00 16:40:[address] 3.430.2.7 Hospit a .3.250660 l .8 2022-07-19 2022-07-19 Outpatient LOLLY AMBROCIO [id number] Lolly 00:00:00 00:00:00 Seybol d 2022-07-19 2022-07-19 Travel 1.2.840.1 1.2.263.525 [id number] Methodi 00:00:00 00:00:[address] 3.430.2.7 0.2.7.3.698 Ho spita .3.867349 084.8 l .8 2022-07-19 2022-07-19 Travel 1.2.840.1 1.2.039.624 [id number] Methodi 00:00:00 00:00:[address] 3.430.2.7 0.2.7.3.698 Ho spita .3.300042 084.8 l .8 2022-05-19 2022-05-19 Outpatient LOLLY STUART [id number] Lolly 00:00:00 00:00:00 PRESTON gant 2022-05-10 2022-05-10 Outpatient LOLLY STUART [id number] Lolly 08:45:00 08:45:00 PRESTON Teresaol stalin 2022-03-03 2022-03-03 Orders Doctor FRANKY 1.2.840.114 [id number] [facility] 00:00:00 00:00:00 Only Unassigned, PETEY 350.1.13.10 ity [facility] 4.2.7.2.686 [place] as [id number] [address] 2022-02-23 2022-02-23 Outpatient Tushar PATHAK [facility] [id number] Univers 11:00:00 11:00:00 SENDIL ity [facility] 2021-12-24 2021-12-24 Outpatient LAURYN BURCIAGA [facility] Surgery [id number] SLE 12:17:00 18:57:00 JOHN 2021-12-24 2021-12-24 [facility] [id number] 12:17:00 18:57:00 Encounter [facility] 2021-12-24 2021-12-24 Anesthesia Bettie Maldonado [facility] [id number] [facility] 17:18:00 17:53:00 Event Inocencia Wu [facility] 2021-12-24 2021-12-24 Surgery Patrica [facility] [id number] 16:02:00 17:02:00 John Geronimo [facility] 2021-12-24 2021-12-[address] [facility] [id number] [facility] 00:00:00 00:00:00 [facility] 2021-12-21 2021-12-21 Outpatient EL [facility]H [facility] [id number] [facility] 10:56:58 23:59:00 2021-12-21 2021-12-21 [facility] [id number] 10:40:00 23:59:00 Encounter [facility] 2021-12-21 2021-12-[address] [facility] [id number] [facility] 00:00:00 00:00:00 [facility] 2020-12-23 2020-12-23 Outpatient R [facility] [id number] Univers 13:00:00 13:00:00 ity [facility] 2020-12-23 2020-12-23 Outpatient R [facility] [id number] Univers 11:20:00 11:20:00 ity [facility] 2020-12-23 2020-12-23 Outpatient SLEH SLEH [id number] [facility] 00:00:00 00:00:00 2020-06-30 2020-06-30 [facility] 1.2.840.114 [id number] 06:46:00 08:16:00 Encounter Chema May 350.1.13.10 [place] 4.2.7.2.686 Surgical [id number] [place] [address] 2020-06-30 2020-06-30 [facility] 1.2.840.114 [id number] Univers 06:46:00 08:16:00 Encounter Chema [facility]13.10 [facility] [place] [id number] Med [address] 2020-06-30 2020-06-30 Outpatient R [facility] D[facility] [id number] Univers 06:46:00 08:16:00 CHEMA ity [facility] 2020-06-30 2020-06-30 Orders Doctor WILKINS 1.2.840.114 [id number] 00:00:00 00:00:00 Only Unassigned, PETEY 350.1.13.10 [place] [facility] 4.2.7.2.686 [id number] 009 2020-06-30 2020-06-30 Orders Doctor FRANKY 1.2.840.114 [id number] Univers 00:00:00 00:00:00 Only Unassigned, PETEY 350.1.13.10 ity of [place] [facility] 4.2.7.2.686 [place] [id number] [address] 2020-06-27 2020-06-27 [facility] [id number] [facility] 14:45:00 14:45:00 CHEMA [facility] 2020-06-27 2020-06-27 Laboratory Only, [facility] 1.2.840.114 [id number] 07:50:58 08:05:58 Only Test [facility] 350.1.13.10 [place] 4.2.7.2.686 [place] [id number] [facility] 2020-06-27 2020-06-27 Laboratory Only, [facility] Test [facility] 1.2.840. 114 [id number] [facility] 07:50:58 08:05:58 Only Chema Deleon Naldo May 350.1.13.1 0 [facility]y [facility] [place] 4.2.7.2.686 [facility] [id number] [address] 2020-06-24 2020-06-24 Outpatient Tushar [facility] [id number] Univers 09:15:00 09:15:00 CHEMA roberts [facility] 2019-11-06 2019-11-06 Outpatient Ige-Odunuga VFP VFP [id number] 11:38:00 11:38:00 _J_AH [address] [facility] Pract[facility] 2019-11-06 2019-11-06 Outpatient Ige-Odunuga VFP VFP [id number] [facility] 11:38:00 11:38:00 _J_AH 75253 Family Practic e 2016-06-29 2016-06-29 Outpatient JAISON_Tulio [facility] 2019 [place] 03:16:00 03:16:00 0506 [facility] Results Test Description Test Time Test Comments Results Result Comments Source ECG Pre/Post Op 2022-07-20 04:16:30 Test Item Value Reference Range Interpretation Comme nts Ventricular rate (test code = 253) Atrial rate (test code = 255) LA interval (test code = 266) QRSD interval [...] of 25-NOV-2014 13:21,-No significant change was found- [facility] Pre/Post [id number] 04:16:30 Test Item Value Reference Range Interpretation Comments Ventricular rate (test 80 code = 253) Atrial rate (test code 80 = 255) LA interval (test code 150 = 266) QRSD [...] of 25-NOV-2014 13:21,-No significant change was found- [facility] Pre/Post [id number] 04:16:30 Test Item Value Reference Range Interpretation Comments Ventricular rate (test 80 code = 253) Atrial rate (test code 80 = 255) LA interval (test code 150 = 266) QRSD [...] of 25-NOV-2014 13:21,-No significant change was found- [facility] lab [id number] 04:08:01 Test Item Value Reference Range Interpretation Comments Cath EF Estimated 53 % (test code = 0012297247) EVIN (test code = Coronary arteriography and [...] basilar anterior, basilar inferior and apical inferior. [facility] lab [id number] 04:08:01 Test Item Value Reference Range Interpretation Comments Cath EF Estimated 53 % (test code = 3407382237) EVIN (test code = Coronary arteriography and [...] basilar anterior, basilar inferior and apical inferior. [facility]2022-12-12 22:39:00 Test Item Value Reference Range Interpretation Comments POC glucose (test code = 123 mg/dL 65-99 H Ope rator Name: 24259-6) Basilio Almarazice ID: [id number] able : No Action Nee ded Lab Interpretation (test Abnormal code = 89668-8) [facility]2022-12-12 22:39:00 Test Item Value Reference Range Interpretation Comments POC glucose (test code = 123 mg/dL 65-99 H Ope rator Name: 05090-6) Basilio Almarazice ID: [id number] able : No Action Nee ded Lab Interpretation (test Abnormal code = 91035-6) [facility]2022-12-12 22:39:00 Test Item Value Reference Range Interpretation Comments POC glucose (test code = 123 mg/dL 65-99 H Ope rator Name: 85190-5) Basilio Almarazice ID: [id number] able : No Action Nee ded Lab Interpretation (test Abnormal code = 40485-0) [facility] [id number] 20:31:01 Test Item Value Reference Range Interpretation Comments POC sodium (test code = 140 mmol/L 870-891 9928-0) POC potassium (test 3.5 mmol/L 3.5-5.0 code = 6298-4) POC chloride (test code 100 mmol/L 99-109 = 2069-3) POC CO2 (test code = 27 mmol/L 65-8) POC glucose (test code 137 mg/dL 65-99 H = 2339-0) POC BUN (test code = 16 mg/dL 8- 6299-2) POC creatinine (test 0.8 mg/dl 0.5-0.9 code = 30888-1) POC hematocrit (test 40 % 37-47 code = 4544-3) POC anion gap (test 18 mmol/L 03-27 Oxidation Operator Name: Danny code = [id number]) WenjuDevice ID: [id number] Lab Interpretation Abnormal (test code = 80648-4) [facility]2022-12-12 20:31:01 Test Item Value Reference Range Interpretation Comments POC sodium (test code = 140 mmol/L 886-397 1926-0) POC potassium (test 3.5 mmol/L 3.5-5.0 code = 6298-4) POC chloride (test code 100 mmol/L 99-109 = 2069-3) POC CO2 (test code = 27 mmol/L 65-8) POC glucose (test code 137 mg/dL 65-99 H = 2339-0) POC BUN (test code = 16 mg/dL 03-3199-2) POC creatinine (test 0.8 mg/dl 0.5-0.9 code = 53941-6) POC hematocrit (test 40 % 37-47 code = 4544-3) POC anion gap (test 18 mmol/L 03-27 Oxidation Operator Name: Danny code = [id number]) WenjuDevice ID: [id number] Lab Interpretation Abnormal (test code = 70472-7) [facility]2022-12-12 20:31:01 Test Item Value Reference Range Interpretation Comments POC sodium (test code = 140 mmol/L 967-383 7749-0) POC potassium (test 3.5 mmol/L 3.5-5.0 code = 6298-4) POC chloride (test code 100 mmol/L 99-109 = 2069-3) POC CO2 (test code = 27 mmol/L 65-8) POC glucose (test code 137 mg/dL 65-99 H = 2339-0) POC BUN (test code = 16 mg/dL 03-31 6299-2) POC creatinine (test 0.8 mg/dl 0.5-0.9 code = 86878-6) POC hematocrit (test 40 % 37-47 code = 4544-3) POC anion gap (test 18 mmol/L 8-20 Oxidation Operator Name: Delgado code = [id number]) WenjuDevice ID: [id number] Lab Interpretation Abnormal (test code = 96939-0) [facility] [id number] 20:31:00 Test Item Value Reference Range Interpretation Comments Estimated GFR (test mL/min/1.73 m2 Caterg ory Units code = 55968-3) Interpretati onG1 >=90 Normal or highG 2 60-89 Mildly decrease dG3a 45-59 Mildly to moder ately nisguvryfC4d 30 -44 Moderately to s everely decreasedG4 15- 29 Severely decreasedG5 <15 Kidney failureThe eGFR was calculated usin g the Chronic Kidney Disease Epidemiology Co llaboration (CKD-EPI) equat ion. Interpretation is based on recommendations of the National Kidney Foundation-Kidn ey Disease Outcomes Qualit y Initiative (NKF-KDOQI) pub lished in 2014. [facility] [id number] 20:31:00 Test Item Value Reference Range Interpretation Comments Estimated GFR (test 73 mL/min/1.73 m2 Caterg ory Units code = 81048-8) Interpretati onG1 >=90 Normal or highG 2 60-89 Mildly decrease dG3a 45-59 Mildly to moder ately wroobfohrM3t 30 -44 Moderately to s everely decreasedG4 15- 29 Severely decreasedG5 <15 Kidney failureThe eGFR was calculated usin g the Chronic Kidney Disease Epidemiology Co llaboration (CKD-EPI) equat ion. Interpretation is based on recommendations of the National Kidney Foundation-Kidn ey Disease Outcomes Qualit y Initiative (NKF-KDOQI) pub lished in 2014. [facility] [id number] 20:31:00 Test Item Value Reference Range Interpretation Comments Estimated GFR (test 73 mL/min/1.73 m2 Caterg ory Units code = 55400-5) Interpretati onG1 >=90 Normal or highG 2 60-89 Mildly decrease dG3a 45-59 Mildly to moder ately nsfxotkuoV2j 30 -44 Moderately to s everely decreasedG4 15- 29 Severely decreasedG5 <15 Kidney failureThe eGFR was calculated usin g the Chronic Kidney Disease Epidemiology Co llaboration (CKD-EPI) equat ion. Interpretation is based on recommendations of the National Kidney Foundation-Kidn ey Disease Outcomes Qualit y Initiative (NKF-KDOQI) pub lished in 2013. [facility] [id number] 13:30:33 Test Item Value Reference Range Interpretation Comments QuantaFlo left side See_Comment [Automa alon message] The (test code = system which [facility] nerated this 45338-4A) result transmit alon reference range : 1.40 - 0.90 NA. The re ference range was not u sed to interpret this result as normal/abnormal . QuantaFlo right side See_Comment Present ation Factors: (test code = Hypertension, 93981-5U) Hyperlipidemia, DiabetesExercis e Modality: At RestNormal - 1.40 - 1.00Borderline - 0.99 - 0.90Mild - 0.89 - 0.60Moderate - 0.59 - 0.30Severe - 0. 29 - 0.00 [Automated mess age] The system which [facility] nerated this result transmit alon reference range : 1.40 - 0.90 NA. The re ference range was not u sed to interpret this result as normal/abnormal . [facility]olly [id number] 17:46:10Reason for exam:->bile duct strictureBIA [facility]: VAR[facility] JOY : 1950 Sex: FAn imaging unit was utilized for this procedure. No radiologist interpretation was requested. Refer to the EMR for findings. Refer to PACS for any patient radiation dose information.POC-Glucose [id number] 14:30:55 Test Item Value Reference Range Interpretation Comments POC-Glucose Meter (test 146 mg/dL 70-110 H : TE STED AT [facility] code = 1538) [address] [facility], 770 30: Oxidation Operator/Techni lexie ID = [id number] for Hooton, Marcela Lab Interpretation (test Abnormal code = 65386-1) [facility]-Glucose [id number] 14:30:55 Test Item Value Reference Range Interpretation Comments POC-Glucose Meter (test 146 mg/dL 70-110 H : TE STED AT [facility] code = 1538) [address] [place] [address], 770 30: Oxidation Operator/Techni lexie ID = [id number] for Hooton, Marcela Lab Interpretation (test Abnormal code = 66538-1) [facility]-Glucose [id number] 14:30:55 Test Item Value Reference Range Interpretation Comments POC-Glucose Meter (test 146 mg/dL 70-110 H : TE STED AT [facility] code = 1538) [address] [place] [address], 770 30: Oxidation Operator/Techni lexie ID = [id number] for Hooton, Marcela Lab Interpretation (test Abnormal code = 95072-4) [facility]-Glucose [id number] 14:30:55 Test Item Value Reference Range Interpretation Comments POC-Glucose Meter (test 146 mg/dL 70-110 H : TE STED AT [facility] code = 1538) [address] [place] [address], 770 30: Oxidation Operator/Techni lexie ID = [id number] for Hooton, Marcela Lab Interpretation (test Abnormal code = 96490-7) [facility]-Glucose [id number] 14:30:55 Test Item Value Reference Range Interpretation Comments POC-Glucose Meter (test 146 mg/dL 70-110 H : TE STED AT [facility] code = 1538) [address] [place] [address], 770 30: Oxidation Operator/Techni lexie ID = [id number] for Hooton, Marcela Lab Interpretation (test Abnormal code = 59721-4) [facility]-GLUCOSE [id number] 14:30:55 Test Item Value Reference Range Interpretation Comments POC-GLUCOSE METER 146 mg/dL 70-110 H : TESTED A T [facility] 6720 (BEAKER) (test code = [facility] Finley [facility], 1538) [address]: Oxidation Operator/Techni lexie ID = [id number] for Marcela Tyson POCT-GLUCOSE [id number] 11:22:00 Test Item Value Reference Range Interpretation Comments POC-GLUCOSE METER 188 mg/dL 70-110 H : Notified RN/MD: (LAURI) (test code = TESTED AT [facility] 6720 1538) [place] [facility], [address]: Oxidation Operator/Techni lexie ID = [id number] for ZOE ESPITIA [place], [id number] 10:54:00Reason for exam:->calculus of bile duct [facility] VAR[facility] JOY : 1950 Sex: FFluoroscopic unit utilized for a procedure performed in the OR. No interpretation was requested. Refer tothe operative report for findings. Refer to PACS for patient radiation dose information.POCT-GLUCOSE [id number] 08:13:00 Test Item Value Reference Range Interpretation Comments POC-GLUCOSE METER 197 mg/dL 70-110 H : TESTED A T [facility] 67 (LAURI) (test code = KRISTIN Finley [facility], 1538) [address]: Oxidation Operator/Techni lexie ID = [id number] for Tamiko Petty CBC WITH [id number] 13:14:00 Test Item Value Reference Range Interpretation Comments WBC (test code = See_Comment [Automated message] 6690-2) The system [employer] generated this result transmitted ref erence range: 4.30 - 1 1.10 10*3/?L. The re ference range was not u sed to interpret this result as normal/abnor mal. RBC (test code = See_Comment [Automated message] 789-8) The system whic h generated this result transmitted ref erence [...] RDW-SD (test code 45.6 fL 39-49.9 = 55378-1) RDW-CV (test code 14.3 % 12-15.5 = 788-0) PLT (test code = See_Comment [Automated message] 777-3) The system [employer] generated this result transmitted ref erence range: 166 - 35 8 10*3/?L. The re ference range was not u sed to interpret this result as normal/abnor mal. MPV (test code = 10.6 fL 9.5-12.9 20625-9) NRBC/100 WBC (test See_Comment [Automat ed message] code = 9584478722) The syste m which generated this result transmitted ref erence range: 0.0 - 10 .0 /100 WBCs. The refer ence range was not u sed to interpret this result as normal/abnor mal. NRBC x10^3 (test <0.01 See_Comment [Automated message] code = 3214290122) The syste m which generated this result transmitted ref erence range: 10*3/?L. The reference range was not used to interpr et this result as normal/abnormal . GRAN MAT (NEUT) % 60.2 % (test code = 770-8) IMM GRAN % (test 0.40 % code = 4651522243) LYMPH % (test code 28.3 % = 736-9) MONO % (test code 7.3 % = 5905-5) EOS % (test code = 2.8 % 713-8) BASO % (test code 1.0 % = 706-2) GRAN MAT 4.06 10*3/uL 1.88-7.09 x10^3(ANC) (test code = 9478308270) IMM GRAN x10^3 0.03 10*3/uL 0-0.06 (test code = 4289047181) LYMPH x10^3 (test 1.91 10*3/uL 1.32-3.29 code = 731-0) MONO x10^3 (test 0.49 10*3/uL 0.33-0.92 code = 742-7) EOS x10^3 (test 0.19 10*3/uL 0.03-0.39 code = 711-2) BASO x10^3 (test 0.07 10*3/uL 0.01-0.07 code = 704-7) [facility] [id number] 12:55:00 Test Item Value Reference Range Interpretation Comments POCT Glu (age>30days) (test code = 194 mg/dL 70-110 A 3342) Lab Interpretation (test code = Abnormal 39080-9) [facility]lineFL, [id number] 22:39:00INTRA OP IMAGINGReason for exam:->CBD STONESFINAL REPORT Examination: ERCP 4 fluoroscopic spot views were obtained during the procedure by the ordering service. Images are nondiagnostic as no radiologist was present at the time of imaging. Fluoroscopic time was 122.2 seconds. Please see the procedure report for details. Signed: Reyes Spicer MDReport Verified Date/Time: 02/07/2019 22:39:15 Reading Location: [address] Reading Room POCT- GLUCOSE [id number] 18:25:00 Test Item Value Reference Range Interpretation Comments POC-GLUCOSE METER 200 mg/dL 70-110 H TESTED AT [facility] 6720 (BEAKER) (test code = [place] 1538) [address] POCT-GLUCOSE [id number] 15:42:00 Test Item Value Reference Range Interpretation Comments POC-GLUCOSE METER 164 mg/dL 70-110 H TESTED AT [place] [address] ([facility]) (test code = [place] 1538) [address] POCT-GLUCOSE [id number] 12:01:00 Test Item Value Reference Range Interpretation Comments POC-GLUCOSE METER 189 mg/dL 70-110 H TESTED AT [place] [address] ([facility]) (test code = [place] 1538) [address] POCT-GLUCOSE [id number] 05:00:00 Test Item Value Reference Range Interpretation Comments POC-GLUCOSE METER 196 mg/dL 70-110 H TESTED AT [place] [address] ([facility]) (test code = [place] 1538) [address] POCT-GLUCOSE [id number] 00:28:00 Test Item Value Reference Range Interpretation Comments POC-GLUCOSE METER 218 mg/dL 70-110 H TESTED AT [place] [address] ([facility]) (test code = [place] 1538) [address] POCT-GLUCOSE [id number] 17:58:00 Test Item Value Reference Range Interpretation Comments POC-GLUCOSE METER 155 mg/dL 70-110 H TESTED AT [place] [address] ([facility]) (test code = [place] 1538) [address] MR, ABDOMEN, [id number] 12:55:00FINAL REPORT TECHNIQUE: MRI of the abdomen [...] MDReport Verified Date/Time: 02/06/2019 12:55:19 Reading Location: [facility] C013Y CT Body Reading Room POCT-GLUCOSE [id number] 11:33:00 Test Item Value Reference Range Interpretation Comments POC-GLUCOSE METER 190 mg/dL 70-110 H TESTED AT [place] [address] ([facility]) (test code = [facility] 1538) [address] POCT-GLUCOSE [id number] 06:13:00 Test Item Value Reference Range Interpretation Comments POC-GLUCOSE METER 210 mg/dL 70-110 H TESTED AT [place] [address] ([facility]) (test code = [facility] 1538) [address] PROTHROMBIN [id number] 03:06:00 Test Item Value Reference Range Interpretation Comments PROTIME (BEAKER) (test code = 15.4 seconds 11.9-14.2 H 759) INR ([facility]) (test code = 370) 1.3 <=5.9 Effective 01/03/2019: PT Reference Range ChangeNew: 11.9-14.2 Previous: 11.7- 14.7RECOMMENDED COUMADIN/WARFARIN INR THERAPY RANGESSTANDARD DOSE: 2.0-3.0 Includes: PROPHYLAXIS for venous thrombosis, systemic embolization; TREATMENT for venous thrombosis and/or pulmonary embolus.HIGH RISK: Target INR is 2.5-3.5 for patients wiht mechanical heart valves.[id number] 03:06:00 Test Item Value Reference Range Interpretation Comments MAGNESIUM (BEAKER) 1.3 mg/dL 1.6-2.6 L Specimen slightly (test code = 627) hemolyzed BASIC METABOLIC [id number] 03:06:00 Test Item Value Reference Range Interpretation [...] DIALYSIS PATIEN TS. Specimen slightly ictericHEPATIC FUNCTION [id number] 03:06:00 Test Item Value Reference Range Interpretation [...] Specimen slightly ictericCBC W/PLT COUNT & AUTO [id number] 02:50:00 Test Item Value Reference Range Interpretation [...] PERCENT (BEAKER) (test code = 2801) POCT-GLUCOSE [id number] 23:33:00 Test Item Value Reference Range Interpretation Comments POC-GLUCOSE METER 241 mg/dL 70-110 H TESTED AT [place] [address] ([facility]) (test code = [place]RISTIN [place] 1538) [address]
[2023-01-10 17:23] LABS: Absolute Lymphocytes (CBC) 2.1 K/uL (0.7-4.9); Hematocrit 39.1 % (36.0-45.0); Lymphocytes % 22.3 % (15.3-44.8); MCV 84.4 fL (80-100); RBC Red Blood Cell Count 4.63 M/uL (3.86-4.86)
[2023-01-10] MEDS ORDERED: dexAMETHasone 10 MG/ML VIAL ONE (17:25)
[2023-01-10] MEDS ORDERED: KETOROLAC 30 MG/ML INJ ONE (17:26)
[2023-01-10] MEDS ORDERED: ONDANSETRON 4 MG/2 ML VIAL ONE (17:26)
[2023-01-10 17:40] LABS: Potassium 3.8 mEq/L (3.5-5.1); Troponin High Sensitivity 7.9 pg/mL (<58.9)
--- NOTE | 2023-01-10 18:02 | RAD REPORT ---
EXAM DESCRIPTION: RAD - Chest Single View - 01/10/2023 5:54 pm CLINICAL HISTORY: PAIN Chest pain. COMPARISON: Chest Pa And Lat (2 Views) dated 12/31/2022; Chest Single View dated 12/18/2022; Chest Sin gle View dated 12/16/2022; Chest Single View dated 08/19/2021 FINDINGS: Portable technique limits examination quality. The lungs are grossly clear with mild scarring in the left base. . The heart is normal in size. No di splaced fractures. IMPRESSION: No acute intrathoracic process suspected.
--- NOTE | 2023-01-10 18:56 | EDPHYS ---
Physician Documentation [facility] Name: Laura Khanna Age: 72 yrs Sex: Female : 1950 Arrival Date: 01/10/2023 Time: 16:47 Bed 17 Private MD: Preston Stuart ED Physician Chicho Lanza HPI: 01/10 18:58 This 72 yrs old Female presents to ER via Ambulatory with complaints of Neck and Upper kb Back Pain. 18:58 The patient or guardian complains of pain. The symptoms are located on the left kb posterior aspect of neck and left lateral aspect of neck. Onset: The symptoms/episode began/occurred last night. Context: The problem was sustained at home, The neck injury/problem resulted from from unknown cause. Associated signs and symptoms: The patient has no apparent associated signs or symptoms, The patient denies any alcohol use. The patient is not apparently intoxicated. No neurological symptoms were experienced by the patient prior to arrival in the emergency department. The pain radiates to the anterior aspect of left shoulder. Modifying factors: The symptoms are alleviated by nothing. the symptoms are aggravated by movement. Severity of symptoms: At their worst the symptoms were moderate, in the emergency department the symptoms are unchanged. The patient has not experienced similar symptoms in the past. The patient has not recently seen a physician. Historical: - Allergies: 16:59 Iodine; hb 16:59 Levaquin; hb 16:59 PENICILLINS; hb - Home Meds: 16:59 amlodipine 5 mg tab [Active]; aspirin 81 mg Oral TbEC 1 tab once daily [Active]; hb atorvastatin 80 mg Oral tab 1 tab once daily [Active]; ibuprofen 800 mg Oral tab 1 tab 3 times per day [Active]; irbesartan 300 mg Oral tab 1 tab once daily [Active]; metformin 1,000 mg Oral tab 1 tab 2 times per day [Active]; omeprazole 40 mg Oral cpDR 1 cap once daily [Active]; levothyroxine 75 mcg tab 1 tab once daily [Active]; Ozempic subcutaneous [Active]; - PMHx: 16:59 Hypertension; Pancreatitis; Hypothyroidism; Diabetes - NIDDM; hb - PSHx: 16:59 cardiac stent; Cholecystectomy; Coronary artery bypass graft; hb - Immunization history:: Adult Immunizations up to date. - Social history:: Smoking status: Patient denies any tobacco usage or history of. ROS: 18:58 Constitutional: Negative for fever, chills, and weight loss. kb 18:58 Neck: Positive for pain with movement, pain at rest. 18:58 All other systems are negative. Exam: 18:41 Constitutional: This is a well developed, well nourished patient who is awake, alert, kb and in no acute distress. Head/Face: Normocephalic, atraumatic. ENT: Moist Mucous membranes Cardiovascular: Regular rate and rhythm with a normal S1 and S2. No gallops, murmurs, or rubs. No pulse deficits. Respiratory: Respirations even and unlabored. No increased work of breathing. Talking in full sentences Abdomen/GI: Soft, non-tender. No distention Skin: Warm, dry with normal turgor. Normal color. MS/ Extremity: Pulses equal, no cyanosis. Neurovascular intact. Full, normal range of motion. Neuro: Awake and alert, GCS 15, oriented to person, place, time, and situation. Moves all extremities. Normal gait. 18:41 ECG was reviewed by the Attending Physician. Vital Signs: 16:58 BP 156 / 86; Pulse 92; Resp 18; Temp 98.2; Pulse Ox 100% ; Weight 93.44 kg; Height 5 hb ft. 5 in. ; Pain 10/10; 17:28 BP 149 / 70; Pulse 70; Resp 16; Pulse Ox 94% on R/A; Pain 5/10; sg5 18:57 BP 154 / 72; Pulse 72; Resp 16; Pulse Ox 98% ; Pain 3/10; sg5 16:58 Body Mass Index 34.28 (93.44 kg, 165.1 cm) hb 16:58 Pain Scale: Adult hb 17:28 Pain Scale: Adult sg5 18:57 Pain Scale: Adult sg5 MDM: 17:02 Patient medically screened. kb 18:57 Differential diagnosis: Cervical Raiculopathy cervical strain, AL. Data reviewed: vital kb signs, nurses notes. Counseling: I had a detailed discussion with the patient and/or guardian regarding: the historical points, exam findings, and any diagnostic results supporting the discharge/admit diagnosis, lab results, radiology results, the need for outpatient follow up, a family practitioner, to return to the emergency department if symptoms worsen or persist or if there are any questions or concerns that arise at home. 01/10 17:05 Order name: Basic Metabolic Panel; Complete Time: 17:43 kb 01/10 17:05 Order name: CBC with Diff; Complete Time: 17:25 kb 01/10 17:05 Order name: Troponin HS; Complete Time: 17:43 kb 01/10 17:05 Order name: XRAY Chest (1 view); Complete Time: 18:05 kb 01/10 17:05 Order name: EKG; Complete Time: 17:06 01/10 17:05 Order name: Cardiac monitoring 01/10 17:05 Order name: EKG - Nurse/Tech; Complete Time: 18:47 kb 01/10 17:05 Order name: IV Saline Lock 01/10 17:05 Order name: Labs collected and sent 01/10 17:05 Order name: O2 Per Protocol 01/10 17:05 Order name: O2 Sat Monitoring EC:41 Rate is 72 beats/min. Rhythm is regular. Left axis deviation noted. IL interval is kb normal at 162 msec. QRS interval is normal at 124 msec. QT interval is normal at 459 msec. Administered Medications: 17:27 Drug: Ondansetron IVP 4 mg Route: IVP; Site: right antecubital; sg5 17:27 Drug: Decadron - Dexamethasone IVP 10 mg Route: IVP; Site: right antecubital; sg5 17:27 Drug: Ketorolac IVP 15 mg Route: IVP; Site: right antecubital; sg5 Disposition Summary: 01/10/23 18:56 Discharge Ordered Location: Home kb Condition: Stable kb Diagnosis - Radiculopathy, cervical region kb Followup: kb - With: Emergency Department - When: As needed - Reason: Worsening of condition Followup: kb - With: Private Physician - When: 2 - 3 days - Reason: Recheck today's complaints, Continuance of care, Re-evaluation by your physician Discharge Instructions: - Discharge Summary Sheet kb - Muscle Strain, [id number] kb - Cervical Radiculopathy, [id number] kb Forms: - Medication Reconciliation Form kb - Thank You Letter kb - Antibiotic Education kb - Prescription Opioid Use kb Prescriptions: - Prednisone 20 mg Oral Tablet - take 1 tablet by ORAL route once daily for 5 days; 5 tablet; Refills: 0, kb Product Selection Permitted - orphenadrine citrate 100 mg Oral Tablet Sustained Release - take 1 tablet by ORAL route 2 times per day As needed; 20 tablet; Refills: 0, kb Product Selection Permitted Signatures: Dispatcher [employer] Melissa Sims, PRODUCT DEVELOPMENT ASSISTANT-C PRODUCT DEVELOPMENT ASSISTANT-Mayra Purcell, RN RN Geena Mabry RN RN sg5 Corrections: (The following items were deleted from the chart) 17:01 16:59 PMHx: Diabetes - IDDM; hb hb
--- NOTE | 2023-01-10 18:56 | ER ---
Nurse's Notes [facility] Name: Laura Khanna Age: 72 yrs Sex: Female : 1950 Arrival Date: 01/10/2023 Time: 16:47 Bed 17 Private MD: Preston Stuart Diagnosis: Radiculopathy, cervical region Presentation: 01/10 16:58 Chief complaint: Left sided neck pain that radiates to left shoulder and nausea since hb last night. Coronavirus screen: At this time, the client does not indicate any symptoms associated with coronavirus-19. Ebola Screen: No symptoms or risks identified at this time. Initial Sepsis Screen: Does the patient meet any 2 criteria? No. Patient's initial sepsis screen is negative. Does the patient have a suspected source of infection? No. Patient's initial sepsis screen is negative. Risk Assessment: Do you want to hurt yourself or someone else? Patient reports no desire to harm self or others. Onset of symptoms was January 09, 2023. 16:58 Method Of Arrival: Ambulatory hb 16:58 Acuity: ZACARIAS 3 hb Triage Assessment: 19:04 General: Behavior is calm, cooperative. sg5 Historical: - Allergies: 16:59 Iodine; hb 16:59 Levaquin; hb 16:59 PENICILLINS; hb - Home Meds: 16:59 amlodipine 5 mg tab [Active]; aspirin 81 mg Oral TbEC 1 tab once daily [Active]; hb atorvastatin 80 mg Oral tab 1 tab once daily [Active]; ibuprofen 800 mg Oral tab 1 tab 3 times per day [Active]; irbesartan 300 mg Oral tab 1 tab once daily [Active]; metformin 1,000 mg Oral tab 1 tab 2 times per day [Active]; omeprazole 40 mg Oral cpDR 1 cap once daily [Active]; levothyroxine 75 mcg tab 1 tab once daily [Active]; Ozempic subcutaneous [Active]; - PMHx: 16:59 Hypertension; Pancreatitis; Hypothyroidism; Diabetes - NIDDM; hb - PSHx: 16:59 cardiac stent; Cholecystectomy; Coronary artery bypass graft; hb - Immunization history:: Adult Immunizations up to date. - Social history:: Smoking status: Patient denies any tobacco usage or history of. Screenin:[address] [facility] ED Fall Risk Assessment (Adult) History of falling in the last 3 months, sg5 including since admission No falls in past 3 months (0 pts). Abuse screen: Denies threats or abuse. Nutritional screening: No deficits noted. Tuberculosis screening: No symptoms or risk factors identified. Assessment: 17:27 General: Appears in no apparent distress. comfortable. Pain: Complains of pain in neck sg5 and left shoulder Pain does not radiate. Neuro: Level of Consciousness is awake, alert, obeys commands, Oriented to person, place, time, situation, Appropriate for age. Cardiovascular: Capillary refill < 3 seconds Patient's skin is warm and dry. Respiratory: Airway is patent Trachea midline Respiratory effort is even, unlabored, Respiratory pattern is regular, symmetrical. GI: Abdomen is round non-distended. : No signs and/or symptoms were reported regarding the genitourinary system. EENT: No signs and/or symptoms were reported regarding the EENT system. Derm: No signs and/or symptoms reported regarding the dermatologic system. Musculoskeletal: No signs and/or symptoms reported regarding the musculoskeletal system. Vital Signs: 16:58 BP 156 / 86; Pulse 92; Resp 18; Temp 98.2; Pulse Ox 100% ; Weight 93.44 kg; Height 5 hb ft. 5 in. ; Pain 10/10; 17:28 BP 149 / 70; Pulse 70; Resp 16; Pulse Ox 94% on R/A; Pain 5/10; sg5 18:57 BP 154 / 72; Pulse 72; Resp 16; Pulse Ox 98% ; Pain 3/10; sg5 16:58 Body Mass Index 34.28 (93.44 kg, 165.1 cm) hb 16:58 Pain Scale: Adult hb 17:28 Pain Scale: Adult sg5 18:57 Pain Scale: Adult sg5 ED Course: 16:51 Patient arrived in ED. im 16:52 Preston Stuart DO is Private Physician. im 16:59 Triage completed. hb 16:59 Arm band placed on. hb 17:02 [facility] kb 17:02 Chicho Lanza MD is Attending Physician. kb 17:08 Geena Mabry, IRINA is Primary Nurse. sg5 17:27 Inserted saline lock: 20 gauge in right antecubital area, using aseptic technique. sg5 Blood collected. 17:56 XRAY Chest (1 view) In Process Unspecified. EDMS 18:47 EKG done, by ED staff, reviewed by Melissa PETER. em1 18:58 IV discontinued. sg5 19:03 No provider procedures requiring assistance completed. sg5 19:04 Patient has correct armband on for positive identification. Bed in low position. Call sg5 light in reach. Side rails up X2. Adult w/ patient. Valuables Left with patient. Administered Medications: 17:27 Drug: Ondansetron IVP 4 mg Route: IVP; Site: right antecubital; sg5 17:27 Drug: Decadron - Dexamethasone IVP 10 mg Route: IVP; Site: right antecubital; sg5 17:27 Drug: Ketorolac IVP 15 mg Route: IVP; Site: right antecubital; sg5 Medication: 19:04 VIS not applicable for this client. sg5 Outcome: 18:56 Discharge ordered by . kb 19:03 Discharged to home with family. sg5 19:03 Condition: good 19:03 Discharge instructions given to patient, Instructed on discharge instructions, follow up and referral plans. 19:04 Patient left the ED. sg5 Signatures: Dispatcher [employer] EDMS Melissa Son, [employer] HARNESS RACING HANDICAPPER-Demian Ocampo em1 Mayra Nowak, IRINA RN Geena Florez, IRINA RN sg5 Cami Lind Corrections: (The following items were deleted from the chart) 17:01 16:59 PMHx: Diabetes - IDDM; hb hb
[2023-01-10 20:05] VITALS: TEMP 98.2
[2023-01-10 20:07] VITALS: BP 154/72; O2SAT 98
--- NOTE | 2023-01-12 07:21 | EKG ---
Test Date: 2023-01-10 Test Time: 18:33:16 Senior Systems Administrator: NATHALY MEASUREMENT RESULTS: Intervals: Rate: 72 PA: 164 QRSD: 124 QT: 420 QTc: 459 [place]: P: 60 PA: 164 QRS: -54 T: 100 INTERPRETIVE STATEMENTS: Normal sinus rhythm Left axis deviation Left bundle branch block Abnormal ECG Compared to ECG 12/16/2022 16:52:17 No significant changes Electronically Signed On 01-12-23 07:15:05 CDT by Bienvenido Nguyen
== END 2023-01-10 19:04 | disposition home or self-care (01) ==
LOC: ER 16:47
DX: M54.12 Radiculopathy, cervical region (principal); E03.9 Hypothyroidism, unspecified; E11.9 Type 2 diabetes mellitus without complications; I10 Essential (primary) hypertension; Z95.1 Presence of aortocoronary bypass graft; Z95.818 Presence of other cardiac implants and grafts; Z79.82 Long term (current) use of aspirin; Z88.0 Allergy status to penicillin; Z88.1 Allergy status to other antibiotic agents; Z91.048 Other nonmedicinal substance allergy status
CPT/HCPCS: 93005; 85025; 80048; 36415; 84484; 71045; 96375; 96374; 99284; J1100; J2405

== ENCOUNTER 2023-03-02 12:27 | Emergency (ER) | payer OTHER ==
--- OUTSIDE RECORDS SUMMARY | 2023-03-02 12:41 | XMS REPORT | Continuity of Care Document ---
:1950 Author Organization [facility] t Address [address] [place] [address] Care Team Providers Name Role Phone Kin Hernandez Primary Care Physician CHEMA DELEON Attending Clinician Unavailable JOHN BURCIAGA Attending Clinician Unavailable PRESTON STUART Attending Clinician Unavailable LAB90 Attending Clinician Unavailable NI LYN Attending Clinician Unavailable Shanta Tate MD Attending Clinician Doctor Unassigned, [place] Attending Clinician Unavailable VINCENT PATHAK Attending Clinician Unavailable John Burciaga MD Attending Clinician Bettie Maldonado MD Attending Clinician [phone] Inocencia Wu MD Attending Clinician Chema Deleon MD Attending Clinician Only, Adc Test Attending Clinician Unavailable Ige-Odflorencia_J_AH Attending Clinician Unavailable KATELYN ELLINGTON Attending Clinician Unavailable ISABELLE Attending Clinician Unavailable CHEMA DELEON Admitting Clinician Unavailable JOHN BURCIAGA Admitting Clinician Unavailable SHANTA TATE Admitting Clinician Unavailable Chema Deleon MD Admitting Clinician Ige-Odunwill_J_AH Admitting Clinician Unavailable KATELYN ELLINGTON Admitting Clinician Unavailable ISABELLE Admitting Clinician Unavailable Payers Payer Name Policy Type Policy Number Effective Date Expiration Date Naldo anaya Foodily [id number] 2019spring 00:00:00 WELLCARE MAPS [id number] 2018 00:00:00 WELLCARE TXP 7 [id number] 2022 CLASSIC NO PREMIUM 00:00:00 R2T WELL[place]ARE OF [place] - [id number] [employer] (MEDICARE REPLACEMENT/ADVANT AGE - HMO) [place] B-[place]: [id number] 2007 [place] 00:00:00 Problems Condition Condition Condition Status Onset [...] 00 Externa l Dermatitis Dermatitis Disease Active 0 K elsey 1-12 Seybold 00:00: - 00 [...] - involving involving 00 note Exte rna swin[place]ish swin[place] might be l coronary coronary different artery of artery of from the sw[place] swinomish original. heart heart Cardiolog without without yMoo [...] - involving involving 00 note Exte rna sw[place] sw[place] might be l coronary coronary different artery of artery of from the sw[place] sw[place]omish original. heart heart Cardiolog without without y- [...] Center Type 2 Type 2 Disease Recurre [facility] diabetes diabetes nce 02-05 [facility] mellitus mellitus 00:00: Medica l without without 00 Center complicati complicati on, with on, with long-term long-term current current use of use of insulin insulin Biliary Biliary Disease Active [facility] colic colic 02-05 [facility] 00:00: Medical [...] Hospita reaction 00 l s to drug Kdc:Evans Propensi Active 2021-08 Lolly ow ty to 0-03 Seybold Dye+Tart adverse 00:00: - razine+L reaction 00 Dermatology Nurse a evofloxa s l matteo Iodine Propensi [...] Active Anaphylaxis 2019-08 Increased Lolly ty to 08-26 fluid Seybold adverse 00:00: retention - reaction 00 Externa s l Levoflox Propensi Active Anaphylaxis 2019-08 K elsey acin ty to 08-26 Seybold adverse 00:00: - reaction 00 Externa s l Penicill Propensi Active Shortness of 2019-08 Hives Lolly ins ty to Breath 08-26 Seybold adverse 00:00: - reaction 00 Externa s l Penicill Drug Active Anaphylaxis 2018-0 Itching, [facility] Allergy 02-05 [facility] 00:[facility]: Medical 00 [place] IODINE Allergy Active High Anaphylaxis 2019-0 [facility] AND 02-05 IODIDE 00:00: CONTAINI 00 NG PRODUCTS LEVOFLOX Allergy Active High Anaphylaxis 2019-0 [facility] ACIN 02-05 00:00: 00 PENICILL Allergy Active High Anaphylaxis 2018-0 [facility] INS 02-05 00:00: 00 Iodine Drug Active Anaphylaxis 2019-[address] [facility] Allergy 02-05 , iv and [facility] Iodide 00:00: topical Medical Containi 00 iodine, Center has Products steroids for premed Levoflox Drug Active Anaphylaxis 2019-[address] [facility] [address] [facility] Allergy 02-05 [facility] 00:00: Medical 00 [place] Penicill Drug Active Anaphylaxis 2019-0 Itching, C [facility] Allergy 02-05 [facility] 00:00: Medical 00 [place] NO KNOWN Drug Active Univers ALLERGIE Class ity of S [facility] Family History Family Member Diagnosis Comments Start Date Stop Date Source Natural father Heart attack [facility] Natural father Heart disease [facility] Natural mother Heart attack [facility] Natural mother Heart disease [facility] Natural brother Brain cancer [facility] Natural brother Diabetes [facility] Natural brother Cancer [facility] Natural brother Diabetes [facility] Natural brother Heart disease [facility] Social History Social Habit Start Date Stop Date Quantity Comments Source Exposure to Not sure [facility] of SARS-CoV-2 (event) [facility] Sexual orientation [facility] History SDOH [facility] Alcohol Binge Medical Efraín ter History SDOH [facility] Alcohol Std Drinks [facility] History of Social 2022-07-20 2022-07-[address] function 00:00:00 00:00:00 Hospital Tobacco use and 2022-07-19 2022-07-19 Smokeless [facility] exposure 00:00:00 00:00:00 tobacco non-user Hospital Alcohol Comment 2022-05-10 2022-05-10 rarely Lolly ybold - 00:00:00 00:00:00 External Education 2022-05-10 2022-05-10 16 Lolly ybold - 00:00:00 00:00:00 External Alcohol intake 2021-12-25 2021-12-[address] [facility] 00:00:00 00:00:00 non-drinker of Medical Ce nter alcohol (finding) History SDOH 2019-02-06 2019-02-[address] [facility] Alcohol Frequency 00:00:00 00:00:00 [facility] Sex Assigned At [birth year] BIA Young kes 00:00:00 00:00:00 [facility] Smoking Status Start Date Stop Date Source Never smoked tobacco Lolly Calderonyb old - External Medications Ordered Filled Start Stop Current Ordering Indication Dosage Frequency Signature Comments Components Source Medication Medication Date Date Medication? Clinician (SIG) Name Name Ferrous 2022- No 325mg Take 1 Lolly Sulfate 02-11 tablet Seybold (Iron) 325 08:17: 00:00 (325 mg - (65 Fe) MG 20 :00 total) by Exte rna oral Tablet mouth l daily (with breakfast) Loratadine 2022- No 10mg Take 1 Karissa ey 10 MG oral 02-11 capsule Seybo ld Capsule 08:15: 00:00 (10 mg - 59 :00 total) by Externa mouth l daily Aspirin 81 2022- Yes 81mg Take 1 Kelse y MG oral 02-11 tablet (81 Seybol d Chewable 08:07: mg total) - Tablet 57 by mouth Externa daily l Ferrous Yes [id number] 162.5mg Take 0.5 Lolly Sulfate 7-07 tablets Seybold (Iron) 325 00:00: (162.5 mg - (65 Fe) MG 00 total) by Exte rna oral Tablet mouth l daily (with breakfast) predniSONE Yes [id number] 10mg Take 1 Lolly (DELTASONE) 5-19 tablet (10 Se ybold 10 MG oral 00:00: mg total) - tablet 00 by mouth Externa daily l Benzonatate Yes [id number] 200mg Q.[id number] Take 1 Lolly 200 MG oral -19 [id number] capsule Seybold Capsule 00:00: 3D (200 mg - 00 total) by Externa mouth 3 l times daily as needed for cough Albuterol Yes [id number] 2{puff} Q.25D Inhale 2 Lolly HFA 108 (90 5-19 puffs into Se ybold Base) 00:00: the lungs - MCG/ACT IN 00 every 6 Dermatology Nurse a AERS hours as l needed for wheezing or shortness of breath Azithromyci 2022- No [id number] Take 2 Lolly n 250 MG 5-23 02-07 tablets by Seyb old oral Tablet 00:00: 00:00 mouth on - 00 :00 day 1 then Externa 1 tablet l by mouth daily for 4 days thereafter . predniSONE 2022- No [id number] 10mg Take 1 Lolly (DELTASONE) 5-19 07-07 tablet (10 S eybold 10 MG oral 00:00: 00:00 mg total) - tablet 00 :00 by mouth Externa daily l Benzonatate 0 2022- No [id number] 200mg Q.[id number] Take 1 Lolly 200 MG oral 5-19 07-07 [id number] capsule Seybold Capsule 00:00: 00:00 3D (200 mg - 00 :00 total) by Externa mouth 3 l times daily as needed for cough Albuterol 2022- No [id number] 2{puff} Q.25D Inhale 2 Lolly HFA 108 (90 5-19 07-07 puffs into S eybold Base) 00:00: 00:00 the lungs - MCG/ACT IN 00 :00 every 6 Dermatology Nurse a AERS hours as l needed for wheezing or shortness of breath Azithromyci 2022- Yes [id number] Take 2 Lolly n 250 MG 5-19 05-25 tablets by Seyb old oral Tablet 00:00: 04:59 mouth on - 00 :00 day 1 then Externa 1 tablet l by mouth daily for 4 days thereafter . Doxycycline Yes 100mg Take 1 Los sey Hyclate 100 5-14 capsule Seybo ld MG oral 00:00: (100 mg - Capsule 00 total) by Externa mouth 2 l times daily Fluticasone Yes 1{puff} 1 puff 2 Lolly -Salmeterol 5-14 times Seybold 250-50 00:00: daily - MCG/ACT 00 Externa inhalation l AEROSOL POWDER, BREATH ACTIVATED Doxycycline 2022- No 100mg Take 1 Ke lsey Hyclate 100 5-14 07-07 capsule Seyb old MG oral 00:00: 00:00 (100 mg - Capsule 00 :00 total) by Externa mouth 2 l times daily Fluticasone 0 2022- No 1{puff} 1 puff 2 Lolly -Salmeterol 5-14 07-07 times Seybol d 250-50 00:00: 00:00 daily - MCG/ACT 00 :00 Externa inhalation l AEROSOL POWDER, BREATH ACTIVATED Amlodipine Yes [id number] 10mg Take 1 K elsey Besylate 10 5-03 tablet (10 Se ybold MG oral 00:00: mg total) - Tablet 00 by mouth Externa daily l Irbesartan 0 Yes [id number] 300mg Take 1 Lolly 300 MG oral 5-03 tablet Seybol d Tablet 00:00: (300 mg - 00 total) by Externa mouth l daily Amlodipine 2022-0 Yes [id number] 10mg Take 1 K elsey Besylate 10 5-03 tablet (10 Se ybold MG oral 00:00: mg total) - Tablet 00 by mouth Externa daily l Irbesartan 0 Yes [id number] 300mg Take 1 Lolly 300 MG oral 5-03 tablet Seybol d Tablet 00:00: (300 mg - 00 total) by Externa mouth l daily OZEMPIC (1 0 Yes [id number] 1mg Inject 1 Lolly mg/dose) 4 4-20 mg into Seybol d mg/3 mL SQ 00:00: the skin - Solution 00 once a Externa Pen-Injecto week l r OZEMPIC (1 Yes [id number] 1mg Inject 1 Lolly mg/dose) 4 4-20 [...] 52 by mouth Externa daily l Loratadine 0 Yes 10mg Take 1 Kelse y 10 MG oral 4-06 capsule Seybol d Capsule 07:52: (10 mg - 52 total) by Externa mouth l daily Aspirin 81 0 Yes 81mg Take 1 Kelse y MG oral 4-06 tablet (81 Seybol d Chewable 07:52: mg total) - Tablet 52 by mouth Externa daily l Loratadine 0 Yes 10mg Take 1 Kelse y 10 MG oral 4-06 capsule Seybol d Capsule 07:52: (10 mg - 52 total) by Externa mouth l daily Metformin 2022-0 Yes [id number] 1000mg Take 1 Lolly HCl 1000 MG 4-06 tablet Seybol d oral Tablet 00:00: (1,000 mg - 00 total) by Externa mouth 2 l times daily Metformin 2022-0 Yes [id number] 1000mg Take 1 Lolly HCl 1000 MG 4-06 tablet Seybol d oral Tablet 00:00: (1,000 mg - 00 total) by Externa mouth 2 l times daily Metformin 2022-0 Yes [id number] 1000mg Take 1 Lolly HCl 1000 MG 4-06 tablet Seybol d oral Tablet 00:00: (1,000 mg - 00 total) by Externa mouth 2 l times daily TRIMETHOPRI 0 2022- No [id number] 1{tbl} Take 1 Lolly M-SULFAMETH 3-31 04-06 tablet by Se ybold OXAZOLE 00:00: 00:00 mouth 2 - (BACTRIM 00 :00 times Externa DS) 800-160 daily for l MG oral 7 days Tablet TRIMETHOPRI 0 2022- No [id number] 1{tbl} Take 1 Lolly M-SULFAMETH 3-13 04-06 [...] daily - 40 Externa l OZEMPIC Yes [id number] .5mg Inject 0.5 Lolly (0.25 or 3-09 mg into Seybold 0.5 00:00: the skin - mg/dose) 2 00 once a Externa mg/1.5 mL week l SQ Solution Pen-Injecto r OZEMPIC Yes [id number] .5mg Inject 0.5 Lolly (0.25 or 3-09 mg into Seybold 0.5 00:00: the skin - mg/dose) 2 00 once a Externa mg/1.5 mL week l SQ Solution Pen-Injecto r Fluconazole 0 2022- No [id number] 150mg Take 1 Lolly 150 MG oral 3-09 04-06 tablet Seybo ld Tablet 00:00: 00:00 (150 mg - 00 :00 total) by Externa mouth once l for 1 dose Fluconazole 2022-0 2022- No [id number] 150mg Take 1 Lolly 150 MG oral 3-09 03-10 tablet Seybo ld Tablet 00:00: 05:59 (150 mg - 00 :00 total) by Externa mouth once l for 1 dose OZEMPIC 2022-0 2022- No [id number] .25mg Inject Ke lsey (0.25 or 2-20 [...] Take 81 mg K elsey MG oral -09 by mouth Seybold Chewable 07:49: daily - Tablet 27 Externa l Loratadine Yes 10mg Take 10 mg K elsey 10 MG oral -09 by mouth Seybo ld Capsule 07:49: daily - 27 Externa l OZEMPIC Yes [id number] .5mg Inject 0.5 Lolly (0.25 or 2-09 mg into Seybold 0.5 00:00: the skin - mg/dose) 2 00 once a Externa mg/1.5 mL week l SQ Solution Pen-Injecto r GlipiZIDE 2022-0 2022- No 10mg Take 10 mg K elsey 10 MG oral -09 -09 by mouth Seyb old TABLET SR 00:00: 00:00 daily - 24 HR 00 :00 Externa l Omeprazole 2022-0 2022- No omeprazole Lolly 40 MG oral -12 -12 40 mg Seybold Delayed 08:27: 00:00 capsule,de - Release 46 :00 layed Externa Capsule release l TAKE ONE (1) CAPSULE(S) BY MOUTH ONCE A DAY. Ketoconazol 2022-0 Yes [id number] Apply to Lolly e 2 % apply 1-12 affected Seyb old externally 00:00: area twice - Cream 00 daily for Externa 10 days l Omeprazole 2022-0 Yes [id number] 40mg Take 1 Lolly 40 MG oral 1-12 capsule Seybol d Delayed 00:00: (40 mg - Release 00 total) by Externa Capsule mouth l daily Ketoconazol 2022-0 Yes [id number] Apply to Lolly e 2 % apply 1-12 affected Seyb old externally 00:00: area twice - Cream 00 daily for Externa 10 days l Omeprazole 2022-0 Yes [id number] 40mg Take 1 Lolly 40 MG oral 1-12 capsule Seybol d Delayed 00:00: (40 mg - Release 00 total) by Externa Capsule mouth l daily Ketoconazol 2022-0 Yes [id number] Apply to Lolly e 2 % apply 1-12 affected Seyb old externally 00:00: area twice - Cream 00 daily for Externa 10 days l Omeprazole 2022-0 Yes [id number] 40mg Take 1 Lolly 40 MG oral 1-12 capsule Seybol d Delayed 00:00: (40 mg - Release 00 total) by Externa Capsule mouth l daily Ketoconazol 2022-0 Yes [id number] Apply to Lolly e 2 % apply 1-12 affected Seyb old externally 00:00: area twice - Cream 00 daily for Externa 10 days l Omeprazole 2022-0 Yes [id number] 40mg Take 1 Lolly 40 MG oral 1-12 capsule Seybol d Delayed 00:00: (40 mg - Release 00 total) by Externa Capsule mouth l daily Omeprazole 2022-0 Yes [id number] 40mg Take 1 Lolly 40 MG oral 1-12 capsule Seybol d Delayed 00:00: (40 mg - Release 00 total) by Externa Capsule mouth l daily OZEMPIC 2022-0 Yes [id number] .25mg Inject Los sey (0.25 or 1-12 0.25 mg Seybold 0.5 00:00: into the - mg/dose) 2 00 skin once Exte rna mg/1.5 mL a week l SQ Solution Pen-Injecto r Ketoconazol 2022-0 Yes [id number] Apply to Lolly e 2 % apply 1-12 affected Seyb old externally 00:00: area twice - Cream 00 daily for Externa 10 days l Omeprazole 2022-0 Yes [id number] 40mg Take 1 Lolly 40 MG oral 1-12 capsule Seybol d Delayed 00:00: (40 mg - Release 00 total) by Externa Capsule mouth l daily Ketoconazol 2022-0 2022- No [id number] Apply to Lolly e 2 % apply -12 -07 affected Sey bold externally 00:00: 00:00 area twice - Cream 00 :00 daily for Externa 10 days l OZEMPIC 2022- No [id number] .25mg Inject Ke lsey (0.25 or 08-19 0.25 mg Seybold 0.5 00:00: 00:00 into the - mg/dose) 2 00 :00 skin once Exte rna mg/1.5 mL a week l SQ Solution Pen-Injecto r Insulin Yes Tresiba Lolly Degludec 08-11 FlexTouch Seybol d (Tresiba 00:00: U-200 - FlexTouch) 00 insulin Dermatology Nurse a 200 UNIT/ML 200 l subcutaneou unit/mL (3 s Solution mL) Pen-injecto subcutaneo r us pen INJECT 56 UNITS SUBCUTANEO USLY TWICE A DAY. Insulin Yes Tresiba Lolly Degludec 08-11 FlexTouch Seybol d (Tresiba 00:00: U-200 - FlexTouch) 00 insulin Dermatology Nurse a 200 UNIT/ML 200 l subcutaneou unit/mL (3 s Solution mL) Pen-injecto subcutaneo r us pen INJECT 56 UNITS SUBCUTANEO USLY TWICE A DAY. Insulin 2022- No Tresiba Lolly Degludec 08-11-09 FlexTouch Seybo ld (Tresiba 00:00: 00:00 U-200 - FlexTouch) 00 :00 insulin Dermatology Nurse a 200 UNIT/ML 200 l subcutaneou unit/mL [...] HB) 200 MG 20:37: (200 mg Hosp artuor tablet 02 total) by l mouth daily. Take by mouth daily for three (3) days prior to procedure. hydrOXYzine 2021-08 Yes 25mg QD Take 1 Meth jennifer (ATARAX) 25 2-13 tablet (25 st MG tablet 20:37: mg total) Hos rubi 02 by mouth l daily. Take by mouth daily for three (3) days prior to procedure. Atorvastati 2021-08 Yes [id number] atorvastamalik Ambrocio n Calcium 1-03 in 80 mg Seybol d 80 MG oral 00:00: tablet - Tablet 00 TAKE ONE Externa (1) l TABLET(S) BY MOUTH ONCE A DAY AT BEDTIME. Amlodipine 2021-08 Yes [id number] 10mg Take 1 K elsey Besylate 10 -03 tablet (10 Se ybold MG oral 00:00: mg total) - Tablet 00 by mouth Externa daily l Irbesartan 2022-1 Yes [id number] 300mg Take 1 Lolly 300 MG oral 1-03 tablet Seybol d Tablet 00:00: (300 mg - 00 total) by Externa mouth l nightly Atorvastati 2021-08 Yes [id number] atorvastat Lolly n Calcium 1-03 in 80 mg Seybol d 80 MG oral 00:00: tablet - Tablet 00 TAKE ONE Externa (1) l TABLET(S) BY MOUTH ONCE A DAY AT BEDTIME. Amlodipine 2021-08 Yes [id number] 10mg Take 1 K elsey Besylate 10 1-03 tablet (10 Se ybold MG oral 00:00: mg total) - Tablet 00 by mouth Externa daily l Irbesartan 2021-08 Yes [id number] 300mg Take 1 Lolly 300 MG oral 1-03 tablet Seybol d Tablet 00:00: (300 mg - 00 total) by Externa mouth l nightly Atorvastati 2021-08 Yes [id number] atorvastat Lolly n Calcium 1-03 in 80 mg Seybol d 80 MG oral 00:00: tablet - Tablet 00 TAKE ONE Externa (1) l TABLET(S) BY MOUTH ONCE A DAY AT BEDTIME. Amlodipine 2021-08 Yes [id number] 10mg Take 1 K elsey Besylate 10 1-03 tablet (10 Se ybold MG oral 00:00: mg total) - Tablet 00 by mouth Externa daily l Irbesartan 2021-08 Yes [id number] 300mg Take 1 Lolly 300 MG oral 1-03 tablet Seybol d Tablet 00:00: (300 mg - 00 total) by Externa mouth l nightly Atorvastati 2021-08 Yes [id number] atorvastat Lolly n Calcium 1-03 in 80 mg Seybol d 80 MG oral 00:00: tablet - Tablet 00 TAKE ONE Externa (1) l TABLET(S) BY MOUTH ONCE A DAY AT BEDTIME. Atorvastati 2021-08 Yes [id number] atorvastat Lolly n Calcium 1-03 in 80 mg Seybol d 80 MG oral 00:00: tablet - Tablet 00 TAKE ONE Externa (1) l TABLET(S) BY MOUTH ONCE A DAY AT BEDTIME. Atorvastati 2021-08 Yes [id number] atorvastat Lolly n Calcium 1-03 in 80 mg Seybol d 80 MG oral 00:00: tablet - Tablet 00 TAKE ONE Externa (1) l TABLET(S) BY MOUTH ONCE A DAY AT BEDTIME. Amlodipine 2021-08 Yes [id number] 10mg Take 1 K elsey Besylate 10 -03 tablet (10 Se ybold MG oral 00:00: mg total) - Tablet 00 by mouth Externa daily l Irbesartan 2021-08 Yes [id number] 300mg Take 1 Lolly 300 MG oral -03 tablet Seybol d Tablet 00:00: (300 mg - 00 total) by Externa mouth l nightly Levothyroxi 2021-08 Yes [id number] 75ug Take 1 Lolly ne Sodium 0-12 tablet (75 Seyb old 75 MCG oral 00:00: mcg total) - Tablet 00 by mouth Externa daily l Levothyroxi 2021-08 Yes [id number] 75ug Take 1 Lolly ne Sodium 0-12 tablet (75 Seyb old 75 MCG oral 00:00: mcg total) - Tablet 00 by mouth Externa daily l Levothyroxi 2021-08 Yes [id number] 75ug Take 1 Lolly ne Sodium 0-12 tablet (75 Seyb old 75 MCG oral 00:00: mcg total) - Tablet 00 by mouth Externa daily l Levothyroxi 2021-08 Yes [id number] 75ug Take 1 Lolly ne Sodium 0-12 tablet (75 Seyb old 75 MCG oral 00:00: mcg total) - Tablet 00 by mouth Externa daily l Levothyroxi 2021-08 Yes [id number] 75ug Take 1 Lolly ne Sodium 0-12 tablet (75 Seyb old 75 MCG oral 00:00: mcg total) - Tablet 00 by mouth Externa daily l GlipiZIDE 2021-08 Yes [id number] 10mg Take 1 Ke lsey 10 MG oral 0-12 tablet (10 Sey bold TABLET SR 00:00: mg total) - 24 HR 00 by mouth Externa daily l Levothyroxi 2021-08 Yes [id number] 75ug Take 1 Lolly ne Sodium 0-12 tablet (75 Seyb old 75 MCG oral 00:00: mcg total) - Tablet 00 by mouth Externa daily l GlipiZIDE 2021-08- No [id number] 10mg Take 1 K elsey 10 MG [...] (Tresiba 08:17: U-200 - FlexTouch) 34 insulin Dermatology Nurse a 200 UNIT/ML 200 l subcutaneou unit/mL [...] - 34 Externa l Ibuprofen 2021-08 Yes [id number] 600mg Q.[id number] Take 1 Lolly 600 MG oral 0-03 [id number] tablet Seybold Tablet 00:00: 3D (600 mg - 00 total) by Externa mouth l every 8 hours as needed for pain FLUTICASONE 2021-08 Yes [id number] 50ug Use 1 K elsey PROPIONATE, 0-03 spray (50 Sey bold NASAL, 50 00:00: mcg total) - MCG/ACT 00 in each Externa nasal nostril l Suspension daily Cetirizine 2021-08 Yes [id number] 10mg Take 1 K elsey HCl (ZyrTEC 0-03 capsule Seybo ld Allergy) 10 00:00: (10 mg - MG oral 00 total) by Externa Capsule mouth l daily Ibuprofen 2021-08 Yes [id number] 600mg Q.[id number] Take 1 Lolly 600 MG oral 0-03 [id number] tablet Seybold Tablet 00:00: 3D (600 mg - 00 total) by Externa mouth l every 8 hours as needed for pain FLUTICASONE 2021-08 Yes [id number] 50ug Use 1 K elsey PROPIONATE, 0-03 spray (50 Sey bold NASAL, 50 00:00: mcg total) - MCG/ACT 00 in each Externa nasal nostril l Suspension daily Cetirizine 2021-08 Yes [id number] 10mg Take 1 K elsey HCl (ZyrTEC 0-03 capsule Seybo ld Allergy) 10 00:00: (10 mg - MG oral 00 total) by Externa Capsule mouth l daily Ibuprofen 2021-08 Yes [id number] 600mg Q.[id number] Take 1 Lolly 600 MG oral 0-03 [id number] tablet Seybold Tablet 00:00: 3D (600 mg - 00 total) by Externa mouth l every 8 hours as needed for pain FLUTICASONE 2021-08 Yes [id number] 50ug Use 1 K elsey PROPIONATE, 0-03 spray (50 Sey bold NASAL, 50 00:00: mcg total) - MCG/ACT 00 in each Externa nasal nostril l Suspension daily Cetirizine 2021-08 Yes [id number] 10mg Take 1 K elsey HCl (ZyrTEC 0-03 capsule Seybo ld Allergy) 10 00:00: (10 mg - MG oral 00 total) by Externa Capsule mouth l daily Ibuprofen 2021-08 Yes [id number] 600mg Q.[id number] Take 1 Lolly 600 MG oral 0-03 [id number] tablet Seybold Tablet 00:00: 3D (600 mg - 00 total) by Externa mouth l every 8 hours as needed for pain FLUTICASONE 2021-08 Yes [id number] 50ug Use 1 K elsey PROPIONATE, 0-03 spray (50 Sey bold NASAL, 50 00:00: mcg total) - MCG/ACT 00 in each Externa nasal nostril l Suspension daily Cetirizine 2021-08 Yes [id number] 10mg Take 1 K elsey HCl (ZyrTEC 0-03 capsule Seybo ld Allergy) 10 00:00: (10 mg - MG oral 00 total) by Externa Capsule mouth l daily Ibuprofen 2021-08 Yes [id number] 600mg Q.[id number] Take 1 Lolly 600 MG oral 0-03 [id number] tablet Seybold Tablet 00:00: 3D (600 mg - 00 total) by Externa mouth l every 8 hours as needed for pain FLUTICASONE 2021-08 Yes [id number] 50ug Use 1 K elsey PROPIONATE, 0-03 spray (50 Sey bold NASAL, 50 00:00: mcg total) - MCG/ACT 00 in each Externa nasal nostril l Suspension daily Cetirizine 2021-08 Yes [id number] 10mg Take 1 K elsey HCl (ZyrTEC 0-03 capsule Seybo ld Allergy) 10 00:00: (10 mg - MG oral 00 total) by Externa Capsule mouth l daily Ibuprofen 2021-08 Yes [id number] 600mg Q.[id number] Take 1 Lolly 600 MG oral 0-03 [id number] tablet Seybold Tablet 00:00: 3D (600 mg - 00 total) by Externa mouth l every 8 hours as needed for pain FLUTICASONE 2021-08 Yes [id number] 50ug Use 1 K elsey PROPIONATE, 0-03 spray (50 Sey bold NASAL, 50 00:00: mcg total) - MCG/ACT 00 in each Externa nasal nostril l Suspension daily Cetirizine 2021-08 Yes [id number] 10mg Take 1 K elsey HCl (ZyrTEC 0-03 capsule Seybo ld Allergy) 10 00:00: (10 mg - MG oral 00 total) by Externa Capsule mouth l daily Ibuprofen 2021-08- No [id number] 600mg Q.[id number] Take 1 Lolly 600 MG oral 0-10 12-07 [id number] tablet Seybold Tablet 00:00: 00:00 3D (600 mg - 00 :00 total) by Externa mouth l every 8 hours as needed for pain FLUTICASONE 2021-08- No [id number] 50ug Use 1 Lolly PROPIONATE, 002-11 spray (50 Se ybold NASAL, 50 00:00: 00:00 mcg total) - MCG/ACT 00 :00 in each Externa nasal nostril l Suspension daily Cetirizine 2021-08- No [id number] 10mg Take 1 Lolly HCl (ZyrTEC 0-10 12- capsule Seyb old Allergy) 10 00:00: 00:00 (10 mg - MG oral 00 :00 total) by Externa Capsule mouth l daily [...] 19:11: mouth Medical tablet 36 nightly . [place] omeprazole Yes 40mg QD Take 40 mg [...] Medical tablet 36 nightly . Center omeprazole 2022-0 Yes 40mg QD Take 40 mg C [...] MG 19:11: daily . Medical tablet 36 [place] aspirin 81 Yes 81mg QD Take 81 [...] 2 Center INSULIN (two) SUBQ) times daily. amLODIPine Yes 10mg Take 10 mg U nivers 10 mg 3-03 by mouth ity of tablet 16:56: every [place] [address] morning. Medical Branch aspirin 81 Yes 81mg Take 81 mg U nivers mg chewable 3-03 by mouth ity of tablet 16:56: daily. [place] [address] Medical Branch atorvastati Yes 80mg Take 80 mg Univers n 80 mg 3-03 by mouth ity of tablet 16:56: daily. [place] [address] Medical Branch levothyroxi Yes 75ug Take 75 Uni vers ne 100 mcg 3-03 mcg by ity of tablet 16:56: mouth. [place] [address] Medical Branch omeprazole Yes 40mg Take 40 mg U nivers 40 mg 3-03 by mouth ity of capsule 16:56: at [place] [address] bedtime. Medical Branch irbesartan Yes 300mg Take 300 Un jeffry 300 mg 3-03 mg by ity of tablet 16:56: mouth at [place] [address] bedtime. Medical Branch metFORMIN Yes 1000mg Take 1,000 Univers 1,000 mg 24 3-03 mg by ity of hr tablet 16:56: mouth [place] [address] daily with Medical breakfast. Branch insulin Yes 56U inject 56 Unive rs detemir 3-03 Units ity of U-100 100 16:56: under the [place] as unit/mL 41 skin. Medical injection Branch amLODIPine 2019-08 Yes 10mg Take 10 mg U nivers 10 mg 1-23 by mouth ity of tablet 14:22: every [place] [address] morning. Medical Branch aspirin 81 2019-08 Yes 81mg Take 81 mg U nivers mg chewable 1-23 by mouth ity of tablet 14:22: daily. [place] [address] Medical Branch atorvastati 2019-08 Yes 80mg Take 80 mg Univers n 80 mg 1-23 by mouth ity of tablet 14:22: daily. [place] [address] Medical Branch levothyroxi 2019-08 Yes 75ug Take 75 Uni vers ne 100 mcg 1-23 mcg by ity of tablet 14:22: mouth. [place] [address] Medical Branch omeprazole 2019-08 Yes 40mg Take 40 mg U nivers 40 mg 1-23 by mouth ity of capsule 14:22: at [place] [address] bedtime. Medical Branch irbesartan 2019-08 Yes 300mg Take 300 Un jeffry 300 mg 1-23 mg by ity of tablet 14:22: mouth at [place] [address] bedtime. Medical Branch metFORMIN 2019-08 Yes 1000mg Take 1,000 Univers 1,000 mg 24 1-23 mg by ity of hr tablet 14:22: mouth [place] [address] daily with Medical breakfast. Branch insulin 2019-08 Yes 56U inject 56 Unive rs detemir 1-23 Units ity of U-100 100 14:22: under [place] as unit/mL 13 skin. Medical injection Branch amLODIPine 2019-08 Yes 10mg Take 10 mg U nivers 10 mg 1-23 by mouth ity of tablet 14:22: every [place] [address] morning. Medical Branch aspirin 81 2019-08 Yes 81mg Take 81 mg U nivers mg chewable 1-23 by mouth ity of tablet 14:22: daily. [place] [address] Medical Branch atorvastati 2019-08 Yes 80mg Take 80 mg Univers n 80 mg 1-23 by mouth ity of tablet 14:22: daily. [place] [address] Medical Branch levothyroxi 2019-08 Yes 75ug Take 75 Uni vers ne 100 mcg 1-23 mcg by ity of tablet 14:22: mouth. [place] [address] Medical Branch omeprazole 2019-08 Yes 40mg Take 40 mg U nivers 40 mg 1-23 by mouth ity of capsule 14:22: at [place] [address] bedtime. Medical Branch irbesartan 2019-08 Yes 300mg Take 300 Un jeffry 300 mg 1-23 mg by ity of tablet 14:22: mouth at [place] [address] bedtime. Medical Branch metFORMIN 2019-08 Yes 1000mg Take 1,000 Univers 1,000 mg 24 1-23 mg by ity of hr tablet 14:22: mouth [place] [address] daily with Medical breakfast. Branch insulin 2019-08 Yes 56U inject 56 Unive rs detemir 1-23 Units ity of U-100 100 14:22: under [place] as unit/mL 13 skin. Medical injection Branch lactated 2019-08 Yes 1000mL at 75 Univer s ringers IV 1-23 mL/hr, ity of infusion 14:00: 1,000 [place], [place] 1[place]000 mL 00 IV Medical Infusion, Branch CONTINUOUS , Starting 06/30/20 at 0800, Until Discontinu ed, Routine, PACU ondansetron 2019-08 Yes 4mg 4 mg, Slow Univers (ZOFRAN 1-23 IV Push, ity of (PF)) 13:57: PRN, 1 [place] injection 4 11 dose, Medical mg Starting Branch [facility] 06/30/20 at 0757, Until Discontinu ed, Routine, Nausea and Vomiting (N/V), PACU triamcinolo 2019-08 Yes PRN, Univer s ne 08-30 Starting ity of acetonide 13:35: [facility] (KENALOG) 06/30/20 Medica l injection at 0735, [place] Until Discontinu ed, Routine, Intra-op iohexoL 2019-08 Yes PRN, Univers (OMNIPAQUE 08-30 Starting ity o f 350 BULK-50 13:35: [facility] mL) 06/30/20 Medical injection at 0735, [place] Until Discontinu ed, Routine, Intra-op bupivacaine 2019-08 Yes PRN, Univ s (preserv 08-30 Starting ity of free) 13:35: [facility] (SENSORCAIN 06/30/20 Medi mookie E MPF) 0.25 at 0735, Bran ch % (2.5 Until mg/mL) Discontinu injection ed, Routine, Intra-op lidocaine 2019-08 Yes PRN, Univers 1% 08-30 Starting ity of (XYLOCAINE) 13:34: [facility] 10 mg/mL (1 06/30/20 Medi mookie %) at 0734, [place] injection Until Discontinu ed, Routine, Intra-op lactated 2019-08 2020- No 1000mL at 42 [facility] rs ringers IV 08-30 11-23 mL/hr, ity of infusion 13:00: 13:11 1,000 mL, [place] as 1,000 mL 00 :00 IV Medical Infusion, [place] ONCE, 1 dose, [facility] 06/30/20 at 0700, Routine, DSU Pre-op irbesartan 2019-08 Yes 300mg Take 300 Un jeffry 300 mg 1-19 mg by ity of tablet 21:00: mouth at [place] 24 bedtime. Medical Branch metFORMIN 2019-08 Yes 1000mg Take 1,000 Univers 1,000 mg 24 1-19 mg by ity of hr tablet 21:00: mouth [place] 24 daily with Medical breakfast. Branch insulin 2019-08 Yes 56U inject 56 Unive rs detemir 1-19 Units ity of U-100 100 21:00: under [place] as unit/mL 24 skin. Medical injection Branch aspirin 81 2019-08 Yes 81mg Take 81 mg U nivers mg chewable 1-19 by mouth ity of tablet 21:00: daily. [place] [address] Medical Branch atorvastati 2019-08 Yes 80mg Take 80 mg Univers n 80 mg 1-19 by mouth ity of tablet 21:00: daily. [place] [address] Medical Branch levothyroxi 2019-08 Yes 75ug Take 75 Uni vers ne 100 mcg 1-19 mcg by ity of tablet 21:00: mouth. [place] [address] Medical Branch omeprazole 2019-08 Yes 40mg Take 40 mg U nivers 40 mg 1-19 by mouth ity of capsule 21:00: at [place] [address] bedtime. Medical Branch amLODIPine 2019-08 Yes 10mg Take 10 mg U nivers 10 mg 1-19 by mouth ity of tablet 20:54: every [place] [address] morning. Medical Branch Vital Signs Vital Name Observation Time Observation Value Comments Source HEIGHT 2020-12-25 07:38:00 165.1 cm WEIGHT 2020-12-25 07:38:00 104.237 kg WEIGHT 2020-12-23 12:01:00 105.688 kg HEIGHT 2020-12-23 12:01:00 165.1 cm Systolic blood 2023-02-11 13:06:00 128 mm[Hg] Lolly Duff - pressure External Diastolic blood 2023-02-11 13:06:00 80 mm[Hg] Perlita Duff - pressure External Heart rate 2023-02-11 13:06:00 88 /min Lolly harvey - External Body temperature 2023-02-11 13:06:00 36.78 Carmen Karissa Duff - External Body height 2023-02-11 13:06:00 165.1 cm Lolly harvey - External Body weight 2023-02-11 13:06:00 95.709 kg Lolly harvey - External BMI 2023-02-11 13:06:00 35.11 kg/m2 Lolly harvey - External Oxygen saturation in 2023-02-11 13:06:00 96 /min Lolly Duff - Arterial blood by External Pulse oximetry Systolic blood 2022-12-24 18:33:00 140 mm[Hg] Lolly Seybold - pressure External Diastolic blood 2022-12-24 18:33:00 97 mm[Hg] Kelse y Seybold - pressure External Heart rate 2022-12-24 18:33:00 94 /min Lolly S eybold - External Body temperature 2022-12-24 18:33:00 36.61 Carmen Karissa ey Seybold - External Respiratory rate 2022-12-24 18:33:00 15 /min Karissa ey Seybold - External Body height 2022-12-24 18:33:00 165.1 cm Lolly S eybold - External Body weight 2022-12-24 18:33:00 93.441 kg Lolly S eybold - External BMI 2022-12-24 18:33:00 34.28 kg/m2 Lolly S eybold - External Oxygen saturation in 2022-12-24 18:33:00 97 /min Lolly Calderonybold - Arterial blood by External Pulse oximetry [...] External Body height 2022-10-14 13:54:00 165.1 cm Lloly S eybold - External Body weight 2022-10-14 [...] saturation in 2022-08-19 14:02:00 99 /min Lolly Omega - Arterial blood by External Pulse oximetry Systolic blood 2022-08-19 14:02:00 145 mm[Hg] Lolly Calderonybold - pressure External Diastolic blood 2022-08-19 14:02:00 83 mm[Hg] Losse y Seybold - pressure External Heart rate 2022-08-19 14:02:00 78 /min Lolly S eybold - External Body temperature 2022-08-19 14:02:00 36.61 Carmen Karissa woods Seybold - External Respiratory rate 2022-08-19 14:02:00 15 /min Karissa woods Seybold - External Systolic blood 2022-05-10 13:06:00 144 mm[Hg] Lolly Calderonybold - pressure External Diastolic blood 2022-05-10 13:06:00 82 mm[Hg] Perlita Teresaold - pressure External Heart rate 2022-05-10 13:06:00 98 /min Lolly woodsbold - External Body temperature 2022-05-10 13:06:00 36.28 Carmen Karissa woods Seybold - External Respiratory rate 2022-05-10 13:06:00 16 /min Karissa woods Seybold - External Body height 2022-05-10 13:06:00 165.1 cm Lolly woodsbold - External Body weight 2022-05-10 13:06:00 105.235 kg Lolly woodsbold - External BMI 2022-05-10 13:06:00 38.61 kg/m2 Lolly Hitchcock eybold - External HEIGHT 2021-12-24 13:30:00 165.1 cm [...] 2020-06-30 14:00:00 123 mm[Hg] Univer sity of [facility] Diastolic blood 2020-06-30 14:00:00 67 mm[Hg] Unive rsity of [facility] Heart rate 2020-06-30 14:00:00 71 /min [facility] [place] [facility] Body temperature 2020-06-30 14:00:00 36.67 Carmen Univ ers[facility] [place] [facility] Respiratory rate 2020-06-30 14:00:00 18 /min [facility] [place] [facility] Oxygen saturation in 2020-06-30 14:00:00 95 /min University of Arterial blood by [facility] Pulse oximetry Branch Body height 2020-06-27 18:02:00 165.1 cm [facility] [place] [facility] Body weight 2020-06-27 18:02:00 102.1 kg [facility] [place] [facility] BMI 2020-06-27 18:02:00 37.46 kg/m2 [facility] [place] [facility] Systolic blood 2020-06-30 14:00:00 123 mm[Hg] Univer sity of pressure [place] [facility] Diastolic blood 2020-06-30 14:00:00 67 mm[Hg] Unive rsity of pressure [place] [facility] Heart rate 2020-06-30 14:00:00 71 /min [facility] [place] [facility] Body temperature 2020-06-30 14:00:00 36.67 Carmen [facility] [place] [facility] Respiratory rate 2020-06-30 14:00:00 18 /min [facility] [place] [facility] Oxygen saturation in 2020-06-30 14:00:00 95 /min University of Arterial blood by [facility] Pulse oximetry Branch Body height 2020-06-27 18:02:00 165.1 cm [facility] [place] [facility] Body weight 2020-06-27 18:02:00 102.1 kg [facility] [place] [facility] BMI 2020-06-27 18:02:00 37.46 kg/m2 [facility] [place] [facility] Systolic blood 2022-07-20 02:00:00 152 mm[Hg] [facility] pressure Diastolic blood 2022-07-20 02:00:00 66 mm[Hg] [facility] pressure Heart rate 2022-07-20 02:00:00 72 /min [facility] Respiratory rate 2022-07-20 02:00:00 14 /min [facility] Oxygen saturation in 2022-07-20 02:00:00 97 /min [facility] Arterial blood by Pulse oximetry Body temperature 2022-07-19 22:30:00 36.22 Carmen [facility] Body height 2022-07-19 19:16:00 165.1 cm [facility] Body weight 2022-07-19 19:16:00 103.556 kg [facility] BMI 2022-07-19 19:16:00 37.99 kg/m2 [facility] Systolic blood 2021-12-24 18:35:00 141 mm[Hg] [facility] Diastolic blood 2021-12-24 18:35:00 60 mm[Hg] [facility] Heart rate 2021-12-24 18:35:00 74 /min [facility] Body temperature 2021-12-24 18:35:00 36.56 Carmen [facility] Respiratory rate 2021-12-24 18:35:00 16 /min [facility] Oxygen saturation in 2021-12-24 18:35:00 92 /min [facility] Arterial blood by Medical Ce nter Pulse oximetry Body height 2021-12-24 13:30:00 165.1 cm [facility] Body weight 2021-12-24 13:30:00 104.327 kg [facility] BMI 2021-12-24 13:30:00 38.27 kg/m2 [facility] Procedures Procedure Date / Time Performing Source Performed Clinician POC GLUCOSE 2022-07-19 22:38:00 Shanta Tatetal CV LEFT HEART CATH LV GRAM 2022-07-19 22:17:[address] [facility] WITH CORS ESTIMATED GFR 2022-07-19 20:27:00 Shanta Tate spital POC PANEL 2022-07-19 20:27:00 Shanta Tate spital CBC WITH PLATELET AND 2022-07-19 20:22:00 Shanta Tate [facility] DIFFERENTIAL POC GLUCOSE 2022-07-19 19:14:00 Shanta Tate spital ECG PRE/POST OP 2022-07-19 18:52:15 Shanta Tate spital [facility]ANTA[facility] 2022-05-10 13:29:52 Preston Stuart ld - External INSURANCE CORRESPONDENCE 2022-03-03 05:01:00 Doctor Unassigned, [facility] REPORT OF PROCEDURE - 2021-12-24 17:40:33 [facility] [place] ERCP 2021-12-24 17:40:00 John Burciaga [facility] ENDOSCOPIC RETROGRADE 2021-12-24 17:13:00 [facility]ANGIOP[facility]AP[facility], [facility] WITH DIRECT DUCT VISUALIZATION, USING PANCREATICOBILIARY FIBEROPTIC PROBE PROCEDURE W/ C-ARM 2021-12-24 17:13:00 John Burciaga [facility] POCT-GLUCOSE METER 2021-12-24 14:20:00 John Burciaga [facility] CBC WITH DIFF 2020-06-30 13:02:00 Chema Deleon [facility] POCT GLUCOSE(AGE >30DAYS) 2020-06-30 12:55:00 Cal Chilel [facility] DAY SURGERY - ADC 2020-06-30 06:01:00 Doctor Unassigned, [facility] [place] Plan of Care Planned Activity Planned Date [...] INFLUENZA VACCINE (Season Ended)] Future Scheduled 2023-04-08 Influenza Vaccine (#1) [facility] 00:00:00 [code = Influenza Medical Ce nter Vaccine (#1)] Future Scheduled 2022-12-[address] [...] [facility] 00:00:00 measurement (procedure) [facility] [code = 99292814] Future Scheduled 2019-02-[address] [facility] 00:00:00 measurement (procedure) [facility] [code = 84946417] Future Scheduled 2019-02-[address] [facility] 00:00:00 measurement (procedure) [facility] [code = 01935201] Future Scheduled 2019-02-[address] [facility] 00:00:00 measurement (procedure) [facility] [code = 44749524] Future Scheduled 2019-02-[address] [facility] 00:00:00 measurement (procedure) [facility] [code = 39956538] Future Scheduled 2019-02-[address] [facility] 00:00:00 measurement (procedure) [facility] [code = 42964638] Future Scheduled 2019-02-[address] [facility] 00:00:00 measurement (procedure) [facility] [code = 21471526] Future Scheduled 1999 SHINGLES VACCINES (1 of [...] 00:00:00 examination Medical Center (regime/therapy) [code = 610573832] Future Scheduled 1959 Urine screening for [facility] 00:00:00 protein (procedure) Medical Center [code = 298990645] Future Scheduled 1959 DIABETIC EYE EXAM [code [facility] 00:00:00 = DIABETIC EYE EXAM] Medical Center Future Scheduled [address] [facility] 00:00:00 examination Medical Center (regime/therapy) [code = 050889545] Future Scheduled 1959 Urine screening for [facility] 00:00:00 protein (procedure) Medical Center [code = 688578037] Future Scheduled 1959 DIABETIC EYE EXAM [code [facility] 00:00:00 = DIABETIC EYE EXAM] Medical Center Future Scheduled [address] [facility] 00:00:00 examination Medical Center (regime/therapy) [code = 097246386] Future Scheduled 1959 Urine screening for [facility] 00:00:00 protein (procedure) Medical Center [code = 166997381] Future Scheduled 1959 DIABETIC EYE EXAM [code [facility] 00:00:00 = DIABETIC EYE EXAM] Medical Center Future Scheduled [address] [facility] 00:00:00 examination Medical Center (regime/therapy) [code = 079718234] Future Scheduled 1959 Urine screening for [facility] 00:00:00 protein (procedure) Medical Center [code = 885029479] Future Scheduled 1959 DIABETIC EYE EXAM [code [facility] 00:00:00 = DIABETIC EYE EXAM] Medical Center Future Scheduled [address] [facility] 00:00:00 examination Medical Center (regime/therapy) [code = 073743143] Future Scheduled 1959 Urine screening for [facility] 00:00:00 protein (procedure) Medical Center [code = 693652567] Future Scheduled 1959 DIABETIC EYE EXAM [code [facility] 00:00:00 = DIABETIC EYE EXAM] Medical Center Future Scheduled [address] [facility] 00:00:00 examination Medical Center (regime/therapy) [code = 381020406] Future Scheduled 1959 Urine screening for [facility] 00:00:00 protein (procedure) Medical Center [code = 562969064] Future Scheduled 1959 DIABETIC EYE EXAM [code [facility] 00:00:00 = DIABETIC EYE EXAM] Medical Center Future Scheduled [address] [facility] 00:00:00 examination Medical Center (regime/therapy) [code = 554244839] Future Scheduled 1959 Urine screening for [facility] 00:00:00 protein (procedure) Medical Center [code = 432001595] Future Scheduled 1949 COVID-19 VACCINE (#1) CH [...] breast Medical C enter (procedure) [code = 064513680] Future Scheduled 1949 CT Colonography (combo) [facility] 00:00:00 [code = CT Colonography [facility] (combo)] Future Scheduled 1949 Screening for malignant [facility] 00:00:00 neoplasm of colon Medical Ce nter (procedure) [code = 441494761] Future Scheduled 1949 Screening for malignant [facility] 00:00:00 neoplasm of colon Medical Ce nter (procedure) [code = 266374461] Future Scheduled 1949 DXA SCAN [code = DXA [facility] 00:00:00 SCAN] [facility] Future Scheduled 1949 Screening for malignant [facility] 00:00:00 neoplasm of colon Medical Ce nter (procedure) [code = 453418331] Future Scheduled 1949 Screening for malignant [facility] 00:00:00 neoplasm of colon Medical Ce nter (procedure) [code = 716417032] Future Scheduled 1949 Sigmoidoscopy [code = [facility] S[facility]oscopy] [facility] Future Scheduled 1949 Screening for malignant [facility] 00:00:00 neoplasm of breast Medical C enter (procedure) [code = 487961844] Future Scheduled 1949 CT Colonography (combo) [facility] 00:00:00 [code = CT Colonography [facility] (combo)] Future Scheduled 1949 Screening for malignant [facility] 00:00:00 neoplasm of colon Medical Ce nter (procedure) [code = 840507796] Future Scheduled 1949 Screening for malignant [facility] 00:00:00 neoplasm of colon Medical Ce nter (procedure) [code = 463568430] Future Scheduled 1949 DXA SCAN [code = DXA [facility] 00:00:00 SCAN] [facility] Future Scheduled 1949 Screening for malignant [facility] 00:00:00 neoplasm of colon Medical Ce nter (procedure) [code = 516970622] Future Scheduled 1949 Screening for malignant [facility] 00:00:00 neoplasm of colon Medical Ce nter (procedure) [code = 845826906] Future Scheduled 1949 Sigmoidoscopy [code = [facility] 00:[facility] Sigmoidoscopy] [facility] Future Scheduled 1949 Screening for malignant [facility] 00:00:00 neoplasm of breast Medical C enter (procedure) [code = 197696629] Future Scheduled 1949 CT Colonography (combo) [facility] 00:00:00 [code = CT Colonography [facility] (combo)] Future Scheduled 1949 Screening for malignant [facility] 00:00:00 neoplasm of colon Medical Ce nter (procedure) [code = 434048973] Future Scheduled 1949 Screening for malignant [facility] 00:00:00 neoplasm of colon Medical Ce nter (procedure) [code = 022372669] Future Scheduled 1949 DXA SCAN [code = DXA [facility] 00:00:00 SCAN] [facility] Future Scheduled 1949 Screening for malignant [facility] 00:00:00 neoplasm of colon Medical Ce nter (procedure) [code = 120402836] Future Scheduled 1949 Screening for malignant [facility] 00:00:00 neoplasm of colon Medical Ce nter (procedure) [code = 519044028] Future Scheduled 1949 Sigmoidoscopy [code = [facility] 00:[facility] Sigmoidoscopy] [facility] Future Scheduled 1949 Screening for malignant [facility] 00:00:00 neoplasm of breast Medical C enter (procedure) [code = 416235359] Future Scheduled 1949 CT Colonography (combo) [facility] 00:00:00 [code = CT Colonography [facility] (combo)] Future Scheduled 1949 Screening for malignant [facility] 00:00:00 neoplasm of colon Medical Ce nter (procedure) [code = 025990872] Future Scheduled 1949 Screening for malignant [facility] 00:00:00 neoplasm of colon Medical Ce nter (procedure) [code = 016966225] Future Scheduled 1949 DXA SCAN [code = DXA [facility] 00:00:00 SCAN] [facility] Future Scheduled 1949 Screening for malignant [facility] 00:00:00 neoplasm of colon Medical Ce nter (procedure) [code = 103663035] Future Scheduled 1949 Screening for malignant [facility] 00:00:00 neoplasm of colon Medical Ce nter (procedure) [code = 703350992] Future Scheduled 1949 Sigmoidoscopy [facility]code = [facility] Screening for malignant [facility] 00:00:00 neoplasm of breast Medical C enter (procedure) [code = 313037021] Future Scheduled 1949 CT Colonography (combo) [facility] 00:00:00 [code = CT Colonography [facility] (combo)] Future Scheduled 1949 Screening for malignant [facility] 00:00:00 neoplasm of colon Medical Ce nter (procedure) [code = 076610288] Future Scheduled 1949 Screening for malignant [facility] 00:00:00 neoplasm of colon Medical Ce nter (procedure) [code = 056828663] Future Scheduled 1949 DXA SCAN [code = DXA [facility] 00:00:00 SCAN] [facility] Future Scheduled 1949 Screening for malignant [facility] 00:00:00 neoplasm of colon Medical Ce nter (procedure) [code = 445055827] Future Scheduled 1949 Screening for malignant [facility] 00:00:00 neoplasm of colon Medical Ce nter (procedure) [code = 854099684] Future Scheduled 1949 Sigmoidoscopy [code = [facility] 00:[facility]] [facility] Future Scheduled 1949 Screening for malignant [facility] 00:00:00 neoplasm of breast Medical C enter (procedure) [code = 699192856] Future Scheduled 1949 CT Colonography (combo) [facility] 00:00:00 [code = CT Colonography [facility] (combo)] Future Scheduled 1949 Screening for malignant [facility] 00:00:00 neoplasm of colon Medical Ce nter (procedure) [code = 287157839] Future Scheduled 1949 Screening for malignant [facility] 00:00:00 neoplasm of colon Medical Ce nter (procedure) [code = 050744147] Future Scheduled 1949 DXA SCAN [code = DXA [facility] 00:00:00 SCAN] [facility] Future Scheduled 1949 Screening for malignant [facility] 00:00:00 neoplasm of colon Medical Ce nter (procedure) [code = 105711126] Future Scheduled 1949 Screening for malignant [facility] 00:00:00 neoplasm of colon Medical Ce nter (procedure) [code = 691735844] Future Scheduled 1949 Sigmoidoscopy [code = [facility] 00:[facility] Sigmoidoscopy] [facility] Future Scheduled 1949 Screening for malignant [facility] 00:00:00 neoplasm of breast Medical C enter (procedure) [code = 162259833] Future Scheduled 1949 CT Colonography (combo) [facility] 00:00:00 [code = CT Colonography [facility] (combo)] Future Scheduled 1949 Screening for malignant [facility] 00:00:00 neoplasm of colon Medical Ce nter (procedure) [code = 934918694] Future Scheduled 1949 Screening for malignant [facility] 00:00:00 neoplasm of colon Medical Ce nter (procedure) [code = 479923181] Future Scheduled 1949 DXA SCAN [code = DXA [facility] 00:00:00 SCAN] [facility] Future Scheduled 1949 Screening for malignant [facility] 00:00:00 neoplasm of colon Medical Ce nter (procedure) [code = 738754787] Future Scheduled 1949 Screening for malignant [facility] 00:00:00 neoplasm of colon Medical Ce nter (procedure) [code = 530284794] Future Scheduled 1949 Sigmoidoscopy [code [facility] Start End Encounter Admission Attending Care Care Encounter Source Date/Time Date/Time Type Type Clinicians Facility Department ID 2021-06-06 Outpatient R JENNIFER DELEON [id number] Univers 06:09:27 [facility] 2021-05-16 Outpatient PATRICA SLE Surgery [id number] [facility] 21:10:52 JOHN 2023-05-16 2023-05-16 Outpatient PREZALOLLY Hitchcock [id number] Lolly 08:00:00 08:00:00 PRESTON Seybol d 2023-02-11 2023-02-11 Outpatient PREZASLOLLY [id number] Lolly 08:00:00 08:00:00 PRESTON Seybol d 2023-02-10 2023-02-10 Outpatient PREZASLOLLY [id number] Lolly 00:00:00 00:00:00 PRESTON Seybol d 2023-02-09 2023-02-09 Outpatient LAB90 LOLLY AMBROCIO [id number] Lolly 08:00:00 08:00:00 Seybol d 2023-02-03 2023-02-03 Outpatient PREZASLOLLY [id number] Lolly 00:00:00 00:00:00 PRESTON Seybol d 2023-02-03 2023-02-03 Outpatient LOLLY AMBROCIO [id number] Lolly 00:00:00 00:00:00 Seybol d 2023-01-21 2023-01-21 Outpatient PREZASLOLLY [id number] Lolly 13:45:00 13:45:00 PRESTON Seybol d 2023-01-18 2023-01-18 [facility] [id number] Lolly 00:00:00 00:00:00 , NI ye 2023-01-07 2023-01-07 Outpatient PREZASLOLLY [id number] Lolly 00:00:00 00:00:00 PRESTON Seybol d 2022-12-24 2022-12-24 Outpatient PREZASLOLLY [id number] Lolly 16:45:00 16:45:00 PRESTON Seybol d 2022-12-22 2022-12-22 Outpatient LOLLY AMBROCIO [id number] Lolly 00:00:00 00:00:00 Seybol d 2022-12-22 2022-12-22 Outpatient LOLLY AMBROCIO [id number] Lolly 00:00:00 00:00:00 Seybol d 2022-12-21 2022-12-21 Outpatient PREZAS, LOLLY AMBROCIO [id number] Lolly 00:00:00 00:00:00 PRESTON Seybol d 2022-12-21 2022-12-21 Outpatient LOLLY AMBROCIO [id number] Lolly 00:00:00 00:00:00 Seybol d 2022-12-21 2022-12-21 Outpatient PREZAS, LOLLY AMBROICO [id number] Lolly 00:00:00 00:00:00 PRESTON Seybol d 2022-12-17 2022-12-17 Outpatient PREZAS, LOLLY AMBROCIO [id number] Lolly 00:00:00 00:00:00 PRESTON Seybol d 2022-12-17 2022-12-17 Outpatient LOLLY AMBROCIO [id number] Lolly 00:00:00 00:00:00 Seybol d 2022-12-14 2022-12-14 Outpatient PREZAS, LOLLY AMBROCIO [id number] Lolly 00:00:00 00:00:00 PRESTON Seybol d 2022-12-08 2022-12-08 Outpatient PREZAS, LOLLY AMBROCIO [id number] Lolly 00:00:00 00:00:00 PRESTON Seybol d 2022-11-25 2022-11-25 Outpatient PREZAS, LOLLY AMBROCIO [id number] Lolly 00:00:00 00:00:00 PRESTON Seybol d 2022-11-25 2022-11-25 Outpatient PREZAS, LOLLY AMBROCIO [id number] Lolly 00:00:00 00:00:00 PRESTON Seybol d 2022-11-15 2022-11-15 Outpatient LAB90 LOLLY AMBROCIO [id number] Lolly 08:05:00 08:05:00 Seybol d 2022-11-11 2022-11-11 Outpatient PREZAS, LOLLY AMBROCIO [id number] Lolly 09:00:00 09:00:00 PERSTON Seybol d 2022-11-05 2022-11-05 Outpatient LAB90 LOLLY AMBROCIO [id number] Lolly 13:30:00 13:30:00 Seybol d 2022-11-05 2022-11-05 Outpatient PREZAS, LOLLY AMBROCIO [id number] Lolly 00:00:00 00:00:00 PRESTON Seybol d 2022-11-05 2022-11-05 Outpatient PREZAS, LOLLY AMBROCIO [id number] Lolly 00:00:00 00:00:00 PRESTON Seybol d 2022-10-18 2022-10-18 Outpatient PREZAS, LOLLY AMBROCIO [id number] Lolly 00:00:00 00:00:00 PRESTON Seybol d 2022-10-18 2022-10-18 Outpatient PREZAS, LOLLY AMBROCIO [id number] Lolly 00:00:00 00:00:00 PRESTON Seybol d 2022-10-15 2022-10-15 Outpatient PREZAS, LOLLY AMBROCIO [id number] Lolly 00:00:00 00:00:00 PRESTON Seybol d 2022-10-14 2022-10-14 Outpatient LAB90 LOLLY AMBROCIO [id number] Lolly 09:00:00 09:00:00 Seybol d 2022-10-14 2022-10-14 Outpatient PREZAS, LOLLY AMBROCIO [id number] Lolly 08:30:00 08:30:00 PRESTON Seybol d 2022-10-12 2022-10-12 Outpatient LAB90 LOLLY AMBROCIO [id number] Lolly 08:05:00 08:05:00 Seybol d 2022-10-12 2022-10-12 Outpatient PREZAS, LOLLY AMBROCIO [id number] Lolly 00:00:00 00:00:00 PRESTON Seybol d 2022-09-27 2022-09-27 Outpatient PREZAS, LOLLY AMBROCIO [id number] Lolly 00:00:00 00:00:00 PRESTON Seybol d 2022-09-27 2022-09-27 Outpatient PREZAS, LOLLY AMBROCIO [id number] Lolly 00:00:00 00:00:00 PRESTON Seybol d 2022-09-16 2022-09-16 Outpatient PREZAS, LOLLY LOLLY [id number] Lolly 08:00:00 08:00:00 PRESTON Seybol d 2022-08-20 2022-08-20 Outpatient PREZAS, LOLLY LOLLY [id number] Lolly 00:00:00 00:00:00 PRESTON Seybol d 2022-08-19 2022-08-19 Outpatient PREZAS, LOLLY LOLLY [id number] Lolly 09:00:00 09:00:00 PRESTON Seybol d 2022-08-11 2022-08-11 Outpatient PREZAS, LOLLY AMBROCIO [id number] Lolly 00:00:00 00:00:00 PRESTON Seybol d 2022-08-10 2022-08-10 Outpatient PREZAS, LOLLY LOLLY [id number] Lolly 08:15:00 08:15:00 PRESTON Seybol d 2022-07-19 2022-07-19 [facility] Attme, 1.2.840.1 [id number] Methodi 12:13:00 20:37:00 Encounter Shanta 34536.1.1 923 s t 3.430.2.7 Hospit a .3.800482 l .8 2022-07-19 2022-07-19 [facility] Attme, 1.2.840.1 [id number] Methodi 12:13:00 20:37:00 Encounter Shanta 60174.1.1 923 s t 3.430.2.7 Hospit a .3.511152 l .8 2022-07-19 2022-07-19 Surgery Attme, 1.2.840.1 [id number] Methodi 15:20:00 16:40:[address] 3.430.2.7 Hospit a .3.350657 l .8 2022-07-19 2022-07-19 Surgery Attme, 1.2.840.1 [id number] Methodi 15:20:00 16:40:[address] 3.430.2.7 Hospit a .3.140523 l .8 2022-07-19 2022-07-19 Outpatient LOLLY AMBROCIO [id number] Lolly 00:00:00 00:00:00 Dominique gant 2022-07-19 2022-07-19 Travel 1.2.840.1 1.2.066.301 [id number] Methodi 00:00:00 00:00:[address] 3.430.2.7 0.2.7.3.698 Ho spita .3.536255 084.8 l .8 2022-07-19 2022-07-19 Travel 1.2.840.1 1.2.658.310 [id number] Methodi 00:00:00 00:00:[address] 3.430.2.7 0.2.7.3.698 Ho spita .3.335325 084.8 l .8 2022-05-19 2022-05-19 Outpatient LOLLY STUART [id number] Lolly 00:00:00 00:00:00 PRESTON gant 2022-05-10 2022-05-10 Outpatient LOLLY STUART [id number] Lolly 08:45:00 08:45:00 PRESTON gant 2022-03-03 2022-03-03 Orders Doctor FRANKY 1.2.840.114 [id number] Univers 00:00:00 00:00:00 Only Unassigned, PETEY 350.1.13.10 ity of [place] [facility] 4.2.7.2.686 [place] [id number] [address] 2022-02-23 2022-02-23 Outpatient Tushar PATHAK [facility] [id number] Univers 11:00:00 11:00:00 VINCENT roberts of [facility] 2021-12-24 2021-12-24 [facility] [id number] [facility] 12:17:00 18:57:00 Encounter [facility] 2021-12-24 2021-12-24 Outpatient EL ANNABEL BURCIAGA Surgery [id number] [facility] 12:17:00 18:57:00 JOHN 2021-12-24 2021-12-24 Anesthesia Bettie Maldonado [facility] [id number] [facility] 17:18:00 17:53:00 Event Inocencia Wu [facility] 2021-12-24 2021-12-24 [facility] [id number] [facility] [address] 16:02:00 17:02:00 [facility] 2021-12-24 2021-12-[address] [facility] [id number] [facility] 00:00:00 00:00:00 [facility] 2021-12-21 2021-12-21 Outpatient EL SLE SLE [id number] [facility] 10:56:58 23:59:00 2021-12-21 2021-12-21 [facility] [id number] 10:40:00 23:59:00 Encounter [facility] 2021-12-21 2021-12-[address] [facility] [id number] [facility] 00:00:00 00:00:00 [facility] 2020-12-23 2020-12-23 Outpatient R [facility] [id number] Univers 13:00:00 13:00:[address] [facility] 2020-12-23 2020-12-23 Outpatient R [facility] [id number] Univers 11:20:00 11:20:[address] [facility] 2020-12-23 2020-12-23 Outpatient SLEH SLEH [id number] [facility] 00:00:00 00:00:00 2020-06-30 2020-06-30 [facility] 1.2.840.114 [id number] Univers 06:46:00 08:16:00 Encounter Chema May 350.1.13.10 [place] [id number] [facility] 2020-06-30 2020-06-30 Outpatient R PANCHO [facility] DARLIN [id number] Univers 06:46:00 08:16:[address] [facility] 2020-06-30 2020-06-30 [facility] 1.2.840.114 [id number] 06:46:00 08:16:00 Encounter Chema Hitchcock [place] 350.1.13.10 [place] 4.2.7.2.686 Surgical [id number] [place] [address] 2020-06-30 2020-06-30 Orders Doctor FRANKY 1.2.840.114 [id number] Univers 00:00:00 00:00:00 Only Unassigned, PETEY 350.1.13.10 ity of [place] [facility] 4.2.7.2.686 [place] [id number] [facility] [address] 2020-06-30 2020-06-30 Orders Doctor FRANKY 1.2.840.114 [id number] 00:00:00 00:00:00 Only Unassigned, PETEY 350.1.13.10 [place] [facility] 4.2.7.2.686 [id number] 009 2020-06-27 2020-06-27 Outpatient Tushar DELEON [facility] [id number] Univers 14:45:00 14:45:00 CHEMA [facility] 2020-06-27 2020-06-27 Laboratory Only, [facility] Test [facility] 1.2.840. 114 [id number] Univers 07:50:58 08:05:58 Only Chema Deleon [place] 350.1.13.1 0 it[place] [id number] [facility] [address] 2020-06-27 2020-06-27 Laboratory Only, [facility] 1.2.840.114 7 [id number] 07:50:58 08:05:58 Only Test [place] 350.1.13.10 [place] 4.2.7.2.686 [place] [id number] 2020-06-24 2020-06-24 Outpatient R PANCHO [facility] [id number] Univers 09:15:00 09:15:[address] [facility] 2019-11-06 2019-11-06 Outpatient Ige-Odunuga VFP VFP [id number] [facility] 11:38:00 11:38:00 _J_AH 13890 Family Practic e 2019-11-06 2019-11-06 Outpatient Ige-Sherrell VFP VFP 792 [id number] [facility] 11:38:00 11:38:00 _J_AH 89687 Family Practic e 2016-06-29 2016-06-29 Outpatient CANNON_J MMG MMG 2019 [place] 03:16:00 03:16:00 0506 [facility] Results Test Description Test Time Test Comments Results Result Comments Source ECG Pre/Post Op 2022-07-20 04:16:30 Test Item Value Reference Range Interpretation Comme nts Ventricular rate (test code = 253) 80 Atrial rate (test code = 255) 80 FL interval (test code = 266) 150 QRSD [...] of 25-NOV-2014 13:21,-No significant change was found- [facility] Pre/Post [id number] 04:16:30 Test Item Value Reference Range Interpretation Comments Ventricular rate (test code = 253) Atrial rate (test code = 255) FL interval (test code = 266) QRSD interval [...] change was found- [facility] Pre/Post [id number] 04:16:30 Test Item Value Reference Range Interpretation Comments Ventricular rate (test 80 code = 253) Atrial rate (test code 80 = 255) FL interval (test code 150 = 266) QRSD [...] change was found- [facility] Pre/Post [id number] 04:16:30 Test Item Value Reference Range Interpretation Comments Ventricular rate (test 80 code = 253) Atrial rate (test code 80 = 255) FL interval (test code 150 = 266) QRSD [...] of 25-NOV-2014 13:21,-No significant change was found- [facility] lab [id number] 04:08:01 Test Item Value Reference Range Interpretation Comments Cath EF Estimated 53 % (test code = 4816614936) EVIN (test code = Coronary arteriography and [...] basilar anterior, basilar inferior and apical inferior. [facility] lab [id number] 04:08:01 Test Item Value Reference Range Interpretation Comments Cath EF Estimated 53 % (test code = 7271159409) EVIN (test code = Coronary arteriography and [...] basilar anterior, basilar inferior and apical inferior. [facility] [id number] 22:39:00 Test Item Value Reference Range Interpretation Comments POC glucose (test code = 123 mg/dL 65-99 H Ope rator Name: [id number]) Basilio Hobbs MDevice ID: [id number] able : No Action Nee ded Lab Interpretation (test Abnormal code = 95901-2) [facility]2022-12-12 22:39:00 Test Item Value Reference Range Interpretation Comments POC glucose (test code = 123 mg/dL 65-99 H Ope rator Name: 74592-6) Basilio Hobbs MDevice ID: [id number] able : No Action Nee ded Lab Interpretation (test Abnormal code = 01663-8) [facility]2022-12-12 22:39:00 Test Item Value Reference Range Interpretation Comments POC glucose (test code = 123 mg/dL 65-99 H Ope rator Name: 57080-0) Basilio Hobbs MDevice ID: [id number] able : No Action Nee ded Lab Interpretation (test Abnormal code = 93269-9) [facility]2022-12-12 22:39:00 Test Item Value Reference Range Interpretation Comments POC glucose (test code = 123 mg/dL 65-99 H Ope rator Name: 82407-9) Basilio Hobbs MDevice ID: [id number] able : No Action Nee ded Lab Interpretation (test Abnormal code = 62046-7) [facility] [id number] 20:31:01 Test Item Value Reference Range Interpretation Comments POC sodium (test code = 140 mmol/L 543-024 2509-0) POC potassium (test 3.5 mmol/L 3.5-5.0 code = 6298-4) POC chloride (test code 100 mmol/L 99-109 = 2069-3) POC CO2 (test code = 27 mmol/L 65-8) POC glucose (test code 137 mg/dL 65-99 H = 2339-0) POC BUN (test code = 16 mg/dL 8 6299-2) POC creatinine (test 0.8 mg/dl 0.5-0.9 code = 00693-7) POC hematocrit (test 40 % 37-47 code = 4544-3) POC anion gap (test 18 mmol/L 8 Communication Analyst Name: Delgado code = [id number]) WenjuDevice ID: [id number] Lab Interpretation Abnormal (test code = 21238-2) [facility]2022-12-12 20:31:01 Test Item Value Reference Range Interpretation Comments POC sodium (test code = 140 mmol/L 474-253 9738-0) POC potassium (test 3.5 mmol/L 3.5-5.0 code = 6298-4) POC chloride (test code 100 mmol/L 99-109 = 2069-3) POC CO2 (test code = 27 mmol/L -96832-4) POC glucose (test code 137 mg/dL 65-99 H = 2339-0) POC BUN (test code = 16 mg/dL 03-31 6299-2) POC creatinine (test 0.8 mg/dl 0.5-0.9 code = 76986-3) POC hematocrit (test 40 % 37-47 code = 4544-3) POC anion gap (test 18 mmol/L 8-20 Communication Analyst Name: Danny code = [id number]) WenjuDevice ID: [id number] Lab Interpretation Abnormal (test code = 98876-9) [facility]2022-12-12 20:31:01 Test Item Value Reference Range Interpretation Comments POC sodium (test code = 140 mmol/L 394-163 9249-0) POC potassium (test 3.5 mmol/L 3.5-5.0 code = 6298-4) POC chloride (test code 100 mmol/L 99-109 = 2069-3) POC CO2 (test code = 27 mmol/L 65-8) POC glucose (test code 137 mg/dL 65-99 H = 2339-0) POC BUN (test code = 16 mg/dL 03-31 6299-2) POC creatinine (test 0.8 mg/dl 0.5-0.9 code = 04038-8) POC hematocrit (test 40 % 37-47 code = 4544-3) POC anion gap (test 18 mmol/L 8-20 Communication Analyst Name: Danny code = [id number]) WenjuDevice ID: [id number] Lab Interpretation Abnormal (test code = 23701-1) [facility]2022-12-12 20:31:01 Test Item Value Reference Range Interpretation Comments POC sodium (test code = 140 mmol/L 138-374 5412-0) POC potassium (test 3.5 mmol/L 3.5-5.0 code = 6298-4) POC chloride (test code 100 mmol/L 99-109 = 2069-3) POC CO2 (test code = 27 mmol/L -8) POC glucose (test code 137 mg/dL 65-99 H = 2339-0) POC BUN (test code = 16 mg/dL 8 6299-2) POC creatinine (test 0.8 mg/dl 0.5-0.9 code = 70666-8) POC hematocrit (test 40 % 37-47 code = 4544-3) POC anion gap (test 18 mmol/L 8- Communication Analyst Name: Delgado code = [id number]) WenjuDevice ID: [id number] Lab Interpretation Abnormal (test code = 04787-7) [facility] [id number] 20:31:00 Test Item Value Reference Range Interpretation Comments Estimated GFR (test 73 mL/min/1.73 m2 Caterg ory Units code = 72149-0) Interpretati onG1 >=90 Normal or highG 2 60-89 Mildly decrease dG3a 45-59 Mildly to moder ately bstqlsqdbQ3d 30 -44 Moderately to s everely decreasedG4 15- 29 Severely decreasedG5 <15 Kidney failureThe eGFR was calculated usin g the Chronic Kidney Disease Epidemiology Co llaboration (CKD-EPI) equat ion. Interpretation is based on recommendations of the National Kidney Foundation-Kidn ey Disease Outcomes Qualit y Initiative (NKF-KDOQI) pub lished in 2014. [facility] [id number] 20:31:00 Test Item Value Reference Range Interpretation Comments Estimated GFR (test mL/min/1.73 m2 Caterg ory Units code = 65861-1) Interpretati onG1 >=90 Normal or highG 2 60-89 Mildly decrease dG3a 45-59 Mildly to moder ately vanqpvtqbA2k 30 -44 Moderately to s everely decreasedG4 15- 29 Severely decreasedG5 <15 Kidney failureThe eGFR was calculated usin g the Chronic Kidney Disease Epidemiology Co llaboration (CKD-EPI) equat ion. Interpretation is based on recommendations of the National Kidney Foundation-Kidn ey Disease Outcomes Qualit y Initiative (NKF-KDOQI) pub lished in 2013. [facility] [id number] 20:31:00 Test Item Value Reference Range Interpretation Comments Estimated GFR (test 73 mL/min/1.73 m2 Caterg ory Units code = 87486-8) Interpretati onG1 >=90 Normal or highG 2 60-89 Mildly decrease dG3a 45-59 Mildly to moder ately ummdyfccpQ3t 30 -44 Moderately to s everely decreasedG4 15- 29 Severely decreasedG5 <15 Kidney failureThe eGFR was calculated usin g the Chronic Kidney Disease Epidemiology Co llaboration (CKD-EPI) equat ion. Interpretation is based on recommendations of the National Kidney Foundation-Kidn ey Disease Outcomes Qualit y Initiative (NKF-KDOQI) pub lished in 2014. [facility] [id number] 20:31:00 Test Item Value Reference Range Interpretation Comments Estimated GFR (test 73 mL/min/1.73 m2 Caterg ory Units code = 87428-8) Interpretati onG1 >=90 Normal or highG 2 60-89 Mildly decrease dG3a 45-59 Mildly to moder ately nnpfqqyalA7g 30 -44 Moderately to s everely decreasedG4 15- 29 Severely decreasedG5 <15 Kidney failureThe eGFR was calculated usin g the Chronic Kidney Disease Epidemiology Co llaboration (CKD-EPI) equat ion. Interpretation is based on recommendations of the National Kidney Foundation-Kidn ey Disease Outcomes Qualit y Initiative (NKF-KDOQI) pub lished in 2014. [id number] 13:30:33 Test Item Value Reference Range Interpretation Comments QuantaFlo left side See_Comment [Automa alon message] The (test code = system which RADLIVE nerated this 67812-6E) result transmit alon reference range : 1.40 - 0.90 NA. The re ference range was not u sed to interpret this result as normal/abnormal . QuantaFlo right side See_Comment Present ation Factors: (test code = Hypertension, 29054-5X) Hyperlipidemia, DiabetesExercis e Modality: At RestNormal - 1.40 - 1.00Borderline - 0.99 - 0.90Mild - 0.89 - 0.60Moderate - 0.59 - 0.30Severe - 0. 29 - 0.00 [Automated mess age] The system which RADLIVE nerated this result transmit alon reference range : 1.40 - 0.90 NA. The re ference range was not u sed to interpret this result as normal/abnormal . Lolly Duff - [id number] 17:46:10Reason for exam:->bile duct strictureS[facility] : 1950 Sex: FAn imaging unit was utilized for this procedure. No radiologist interpretation was requested. Refer to the EMR for findings. Refer to PACS for any patient radiation dose information.POC-Glucose [id number] 14:30:55 Test Item Value Reference Range Interpretation Comments POC-Glucose Meter (test 146 mg/dL 70-110 H : TE STED AT [facility] code = 1538) [address] [place] [address], [facility] 30: Communication Analyst/Techni leixe ID = [id number] for Ping Saldanay Lab Interpretation (test Abnormal code = 49310-5) [facility]-Glucose [id number] 14:30:55 Test Item Value Reference Range Interpretation Comments POC-Glucose Meter (test 146 mg/dL 70-110 H : TE STED AT [facility] code = 1538) [address] [place] [address], 770 30: Communication Analyst/Techni lexie ID = [id number] for Hoyadin, Marcela Lab Interpretation (test Abnormal code = 19327-8) [facility]-Glucose [id number] 14:30:55 Test Item Value Reference Range Interpretation Comments POC-Glucose Meter (test 146 mg/dL 70-110 H : TE STED AT [facility] code = 1538) [address] [place] [address], 770 30: Communication Analyst/Techni lexie ID = [id number] for Hooton, Marcela Lab Interpretation (test Abnormal code = 54105-6) [facility] [id number] 14:30:55 Test Item Value Reference Range Interpretation Comments POC-Glucose Meter (test 146 mg/dL 70-110 H : TE STED AT [facility] code = 1538) [address] [facility], 770 30: Communication Analyst/Techni lexie ID = [id number] for Hooton, Marcela Lab Interpretation (test Abnormal code = 31870-9) [facility] [id number] 14:30:55 Test Item Value Reference Range Interpretation Comments POC-Glucose Meter (test 146 mg/dL 70-110 H : TE STED AT [facility] code = 1538) [address] [place] [address], 770 30: Communication Analyst/Techni lexie ID = [id number] for Hooton, Marcela Lab Interpretation (test Abnormal code = 66505-2) [facility] [id number] 14:30:55 Test Item Value Reference Range Interpretation Comments POC-GLUCOSE METER 146 mg/dL 70-110 H : TESTED A T [facility] 6720 ([facility] (test code = [facility] T[facility], 1538) [address]: Communication Analyst/Techni lexei ID = [id number] for Marcela Tyson POCT-GLUCOSE [id number] 11:22:00 Test Item Value Reference Range Interpretation Comments POC-GLUCOSE METER 188 mg/dL 70-110 H : Notified RN/MD: (LAURI) (test code = TESTED AT [facility] 6720 1538) [facility], [address]: Communication Analyst/Techni lexie ID = [id number] for SYLVESTER ZOE TANG [place], [id number] 10:54:00Reason for exam:->calculus of bile duct [facility] : 1950 Sex: FFluoroscopic unit utilized for a procedure performed in the OR. No interpretation was requested. Refer tothe operative report for findings. Refer to PACS for patient radiation dose information.POCT-GLUCOSE [id number] 08:13:00 Test Item Value Reference Range Interpretation Comments POC-GLUCOSE METER 197 mg/dL 70-110 H : TESTED A T [facility] 6720 (BEAKER) (test code = KRISTIN ZAMORANO [place], 1538) [address]: Communication Analyst/Techni lexie ID = [id number] for Tamiko Petty CBC WITH [id number] 13:14:00 Test Item Value Reference Range Interpretation Comments WBC (test code = See_Comment [Automated message] 1890-2) The system [employer] generated this result transmitted ref erence range: 4.30 - 1 1.10 10*3/?L. The re ference range was not u sed to interpret this result as normal/abnor mal. RBC (test code = See_Comment [Automated message] 919-8) The system [employer] generated this result transmitted ref erence range: [...] RDW-SD (test code 45.6 fL 39-49.9 = 99286-3) RDW-CV (test code 14.3 % 12-15.5 = 788-0) PLT (test code = See_Comment [Automated message] 777-3) The system whic h generated this result transmitted ref erence range: 166 - 35 8 10*3/?L. The re ference range was not u sed to interpret this result as normal/abnor mal. MPV (test code = 10.6 fL 9.5-12.9 34560-9) NRBC/100 WBC (test See_Comment [Automat ed message] code = 7675892172) The syste m which generated this result transmitted ref erence range: 0.0 - 10 .0 /100 WBCs. The refer ence range was not u sed to interpret this result as normal/abnor mal. NRBC x10^3 (test <0.01 See_Comment [Automated message] code = [id number]) The syste m which generated this result transmitted ref erence range: 10*3/?L. The reference range was not used to interpr et this result as normal/abnormal . GRAN MAT (NEUT) % 60.2 % (test code = 770-8) IMM GRAN % (test 0.40 % code = [id number]) LYMPH % (test code 28.3 % = 736-9) MONO % (test code 7.3 % = 5905-5) EOS % (test code = 2.8 % 713-8) BASO % (test code 1.0 % = 706-2) GRAN MAT 4.06 10*3/uL 1.88-7.09 x10^3(ANC) (test code = [id number]) IMM GRAN x10^3 0.03 10*3/uL 0-0.06 (test code = [id number]) LYMPH x10^3 (test 1.91 10*3/uL 1.32-3.29 code = 731-0) MONO x10^3 (test 0.49 10*3/uL 0.33-0.92 code = 742-7) EOS x10^3 (test 0.19 10*3/uL 0.03-0.39 code = 711-2) BASO x10^3 (test 0.07 10*3/uL 0.01-0.07 code = 704-7) [facility] [id number] 12:55:00 Test Item Value Reference Range Interpretation Comments POCT Glu (age>30days) (test code = 194 mg/dL 70-110 A 3342) Lab Interpretation (test code = Abnormal 92397-6) [facility] HospitalFL, [id number] 22:39:00INTRA OP IMAGINGReason for exam:->CBD STONESFINAL REPORT Examination: ERCP 4 fluoroscopic spot views were obtained during the procedure by the ordering service. Images are nondiagnostic as no radiologist was present at the time of imaging. Fluoroscopic time was 122.2 seconds. Please see the procedure report for details. Signed: Reyes Spicer MDReport Verified Date/Time: 02/07/2019 22:39:15 Reading Location: [address] Reading Room POCT- GLUCOSE [id number] 18:25:00 Test Item Value Reference Range Interpretation Comments POC-GLUCOSE METER 200 mg/dL 70-110 H TESTED AT [place] [address] ([facility]) (test code = WILLIETEA Finley [facility] 1538) [id number] POCT-GLUCOSE [id number] 15:42:00 Test Item Value Reference Range Interpretation Comments POC-GLUCOSE METER 164 mg/dL 70-110 H TESTED AT [place] [address] ([facility]) (test code = WILLIETEA Tushar [facility] 1538) [id number] POCT-GLUCOSE [id number] 12:01:00 Test Item Value Reference Range Interpretation Comments POC-GLUCOSE METER 189 mg/dL 70-110 H TESTED AT [place] [address] ([facility]) (test code = WILLIETEA Finley [facility] 1538) [id number] POCT-GLUCOSE [id number] 05:00:00 Test Item Value Reference Range Interpretation Comments POC-GLUCOSE METER 196 mg/dL 70-110 H TESTED AT [place] [address] ([facility]) (test code = WILLIETEA Finley [facility] 1538) [id number] POCT-GLUCOSE [id number] 00:28:00 Test Item Value Reference Range Interpretation Comments POC-GLUCOSE METER 218 mg/dL 70-110 H TESTED AT [place] [address] ([facility]) (test code = WILLIEAR Tushar [place] [address]) [id number] POCT-GLUCOSE [id number] 17:58:00 Test Item Value Reference Range Interpretation Comments POC-GLUCOSE METER 155 mg/dL 70-110 H TESTED AT [place] [address] ([facility]) (test code = KRISTIN Finley [facility] 1537) [id number] MR, ABDOMEN, [id number] 12:55:00FINAL REPORT TECHNIQUE: MRI of the abdomen [...] MDReport Verified Date/Time: 02/06/2019 12:55:19 Reading Location: [address] Body Reading Room POCT-GLUCOSE [id number] 11:33:00 Test Item Value Reference Range Interpretation Comments POC-GLUCOSE METER 190 mg/dL 70-110 H TESTED AT [facility] 6720 ([facility]) (test code = KRISTIN Finley [facility] 1538) [id number] POCT-GLUCOSE [id number] 06:13:00 Test Item Value Reference Range Interpretation Comments POC-GLUCOSE METER 210 mg/dL 70-110 H TESTED AT [facility] 6720 (BEAKER) (test code = KRISTIN [place]OR[place] 1538) [id number] PROTHROMBIN [id number] 03:06:00 Test Item Value Reference Range Interpretation [...] is 2.5-3.5 for patients wiht mechanical heart valves.[id number] 03:06:00 Test Item Value Reference Range Interpretation Comments MAGNESIUM (BEAKER) 1.3 mg/dL 1.6-2.6 L Specimen slightly (test code = 627) hemolyzed BASIC METABOLIC [id number] 03:06:00 Test Item Value Reference Range Interpretation [...] DIALYSIS PATIEN TS. Specimen slightly ictericHEPATIC FUNCTION [id number] 03:06:00 Test Item Value Reference Range Interpretation [...] Specimen slightly ictericCBC W/PLT COUNT & AUTO [id number] 02:50:00 Test Item Value Reference Range Interpretation [...] PERCENT (BEAKER) (test code = 2805) POCT-GLUCOSE [id number] 23:33:00 Test Item Value Reference Range Interpretation Comments POC-GLUCOSE METER 241 mg/dL 70-110 H TESTED AT [facility] 67[facility] (test code = KRISTIN [place] 1538) [id number]
[2023-03-02 13:29] LABS: Absolute Lymphocytes (CBC) 1.9 K/uL (0.7-4.9); Hematocrit 39.7 % (36.0-45.0); Lymphocytes % 19.8 % (15.3-44.8); MCV 84.9 fL (80-100); MPV 8.2 fL (7.6-11.3); RBC Red Blood Cell Count 4.67 M/uL (3.86-4.86)
[2023-03-02] MEDS ORDERED: HYDROMORPHONE HCL 1 MG/ML INJ ONE (13:31)
[2023-03-02] MEDS ORDERED: ONDANSETRON 4 MG/2 ML VIAL ONE (13:32)
[2023-03-02 13:42] LABS: Albumin 3.4 g/dL (3.4-5.0); Bilirubin Total 0.6 mg/dL (0.2-1.0); Protein, Total 7.9 g/dL (6.4-8.2)
--- NOTE | 2023-03-02 13:45 | RAD REPORT ---
EXAM DESCRIPTION: US - Abdomen Exam Limited - 03/02/2023 1:39 pm CLINICAL HISTORY: ABD PAIN COMPARISON: Abdomen Exam Limited dated 12/21/2020 FINDINGS: The gallbladder is absent. The common bile duct is normal measuring 4 mm. The liver demonstrates no findings of intrahepatic biliary dilatation. IMPRESSION: Absent gallbladder, otherwise negative study.
--- NOTE | 2023-03-02 14:12 | EDPHYS ---
Physician Documentation [facility] Name: Laura Khanna Age: 72 yrs Sex: Female : 1950 Arrival Date: 03/02/2023 Time: 12:27 Bed 6 Private MD: Preston Stuart ED Physician Haritha Arreguin HPI: 03/02 13:19 This 72 yrs old Female presents to ER via Ambulatory with complaints of Abdominal Pain, sp3 Back Pain. 13:19 72-year-old female with a history of hypertension, diabetes, status postcholecystectomy sp3 who has had 3 episodes of common bile duct stone formation after her surgery requiring ERCP all 3 times by patient's GI physician at [facility] now presents with chief complaint right upper quadrant pain and symptoms similar to these prior episodes. Symptoms started approximately 2 days ago and now consist of pain radiating around to the right side along with nausea. She denies any fever, headache, URI symptoms, chest pain, shortness of breath, vomiting, diarrhea, lower abdominal pain, syncope, near syncope, focal neurodeficit, known sick contacts, travel history, or any other signs or symptoms on ROS at this time.. Historical: - Allergies: 12:47 Iodine; aa5 12:47 Levaquin; aa5 12:47 PENICILLINS; aa5 - Home Meds: 12:47 irbesartan 300 mg oral tablet once [Active]; metformin 1,000 mg Oral Tablet, Extended aa5 Release 24 hr 2 times per day [Active]; atorvastatin 80 mg oral tablet every evening [Active]; amlodipine 10 mg tablet once [Active]; omeprazole 40 mg Oral capsule,delayed release (e.c.) daily [Active]; levothyroxine 75 mcg tablet once [Active]; aspirin 81 mg Oral capsule daily [Active]; Ozempic 1 mg/dose (4 mg/3 mL) subcutaneous Pen Injector every week [Active]; Tresiba FlexTouch U-100 100 unit/mL (3 mL) subcutaneous Insulin Pen 56 units as needed [Active]; - PMHx: 12:47 Diabetes - NIDDM; Hypertension; Hypothyroidism; Pancreatitis; aa5 - PSHx: 12:47 cardiac stent; Cholecystectomy; Coronary artery bypass graft; aa5 - Immunization history:: Adult Immunizations unknown. - Social history:: Smoking status: Patient denies any tobacco usage or history of. ROS: 13:20 Constitutional: Negative for fever, chills, and weight loss, Eyes: Negative for injury, sp3 pain, redness, and discharge, ENT: Negative for injury, pain, and discharge, Neck: Negative for injury, pain, and swelling, Cardiovascular: Negative for chest pain, palpitations, and edema, Respiratory: Negative for shortness of breath, cough, wheezing, and pleuritic chest pain, Back: Negative for injury and pain, MS/Extremity: Negative for injury and deformity, Skin: Negative for injury, rash, and discoloration, Neuro: Negative for headache, weakness, numbness, tingling, and seizure, Psych: Negative for depression, anxiety, suicide ideation, homicidal ideation, and hallucinations, Allergy/Immunology: Negative for hives, rash, and allergies, Endocrine: Negative for neck swelling, polydipsia, polyuria, polyphagia, and marked weight changes, Hematologic/Lymphatic: Negative for swollen nodes, abnormal bleeding, and unusual bruising. 13:20 All other systems are negative. Exam: 13:22 Constitutional: This is a well developed, well nourished patient who is awake, alert, sp3 and in no acute distress. Head/Face: Normocephalic, atraumatic. Eyes: Pupils equal round and reactive to light, extra-ocular motions intact. Lids and lashes normal. Conjunctiva and sclera are non-icteric and not injected. Cornea within normal limits. Periorbital areas with no swelling, redness, or edema. Neck: Trachea midline, no thyromegaly or masses palpated, and no cervical lymphadenopathy. Supple, full range of motion without nuchal rigidity, or vertebral point tenderness. No Meningismus. Chest/axilla: Normal chest wall appearance and motion. Nontender with no deformity. No lesions are appreciated. Cardiovascular: Regular rate and rhythm with a normal S1 and S2. No gallops, murmurs, or rubs. Normal PMI, no JVD. No pulse deficits. Respiratory: Lungs have equal breath sounds bilaterally, clear to auscultation and percussion. No rales, rhonchi or wheezes noted. No increased work of breathing, no retractions or nasal flaring. Back: No spinal tenderness. No costovertebral tenderness. Full range of motion. Skin: Warm, dry with normal turgor. Normal color with no rashes, no lesions, and no evidence of cellulitis. MS/ Extremity: Pulses equal, no cyanosis. Neurovascular intact. Full, normal range of motion. Neuro: Awake and alert, GCS 15, oriented to person, place, time, and situation. Cranial nerves II-XII grossly intact. Motor strength 5/5 in all extremities. Sensory grossly intact. Cerebellar exam normal. Normal gait. Psych: Awake, alert, with orientation to person, place and time. Behavior, mood, and affect are within normal limits. 13:22 Abdomen/GI: Patient with moderate pain in right upper quadrant without peritoneal signs.. Vital Signs: 12:46 BP 176 / 93; Pulse 97; Resp 18 S; Temp 97.6(TE); Pulse Ox 98% on R/A; Weight 93.44 kg aa5 (R); Height 5 ft. 5 in. (R); 13:37 BP 143 / 61; Pulse 96; Resp 16; Pulse Ox 96% on R/A; db 14:25 BP 134 / 57; Pulse 66; Resp 17; Pulse Ox 97% ; ll1 12:46 Body Mass Index 34.28 (93.44 kg, 165.1 cm) aa5 MDM: 12:59 Patient medically screened. sp3 13:22 Data reviewed: vital signs, nurses notes, old medical records, lab test result(s), sp3 radiologic studies. ED course: 72-year-old female with right upper quadrant pain. This may be another episode of the common bile duct stone formation requiring further intervention. Ultrasound has been ordered. Other possibilities include pancreatitis, gastritis, peptic ulcer disease or intestinal pathology among others. I am not highly suspicious for GI TECH pathology, aortic pathology, retroperitoneal pathology including kidney stone or UTI, or any other concerning findings including sepsis and shock. Ultrasound and blood work are pending. Disposition pending work-up and patient course.. 14:07 ED course: Ultrasound demonstrates no common bile duct pathology with a diameter of 4 sp3 mm. Laboratory values including CBC and LFTs all within normal limits. Patient feels better after pain medication. We will safely discharge her home at this time with follow-up with her GI physician in [place].. 03/02 13:07 Order name: CBC with Diff; Complete Time: 13:52 sp3 03/02 13:07 Order name: CMP; Complete Time: 13:52 sp3 03/02 13:07 Order name: Lipase; Complete Time: 13:52 sp3 03/02 13:07 Order name: US Abdomen Limited; Complete Time: 13:52 sp3 03/02 13:07 Order name: IV Saline Lock; Complete Time: 13:34 sp3 03/02 13:07 Order name: Labs collected and sent; Complete Time: 13:34 sp3 Administered Medications: 13:24 Drug: Ondansetron IVP 4 mg Route: IVP; Site: left antecubital; db 14:25 Follow up: Response: No adverse reaction ll1 13:24 Drug: HYDROmorphone IVP 1 mg Route: IVP; Site: left antecubital; db 14:25 Follow up: Response: No adverse reaction; Pain is decreased; RASS: Alert and Calm (0) ll1 Disposition Summary: 03/02/23 14:11 Discharge Ordered Location: Home sp3 Condition: Stable sp3 Diagnosis - Abdominal pain, Generalized sp3 Followup: sp3 - With: Private Physician - When: Upon discharge from the Emergency Department - Reason: Continuance of care Discharge Instructions: - Discharge Summary Sheet sp3 - Abdominal Pain, Adult sp3 Forms: - Medication Reconciliation Form sp3 - Thank You Letter sp3 - Antibiotic Education sp3 - Prescription Opioid Use sp3 - Patient Portal Instructions sp3 Signatures: Dispatcher [employer] Shilpa Wolfe RN RN aa5 Haritha Arreguin MD MD sp3 Hanh Zhang RN RN Adonis Godoy RN ll1
--- NOTE | 2023-03-02 14:12 | ER ---
Nurse's Notes [facility] Name: Laura Khanna Age: 72 yrs Sex: Female : 1950 Arrival Date: 03/02/2023 Time: 12:27 Bed 6 Private MD: Preston Stuart Diagnosis: Abdominal pain, Generalized Presentation: 03/02 12:46 Chief complaint: Patient states: RUQ pain "for a while" but got worse today, reports aa5 nausea and chills. Coronavirus screen: nausea. Ebola Screen: Patient denies travel to an Ebola-affected area in the 21 days before illness onset. Initial Sepsis Screen: Does the patient meet any 2 criteria? HR > 90 bpm. Does the patient have a suspected source of infection? No. Patient's initial sepsis screen is negative. Risk Assessment: Do you want to hurt yourself or someone else? Patient reports no desire to harm self or others. Onset of symptoms was March 02, 2023. 12:46 Acuity: ZACARIAS 3 aa5 12:46 Method Of Arrival: Ambulatory aa5 Triage Assessment: 13:34 General: Appears in no apparent distress. uncomfortable, Behavior is cooperative. Pain: db Complains of pain in abdomen. GI: Abdomen is non-distended. Historical: - Allergies: 12:47 Iodine; aa5 12:47 Levaquin; aa5 12:47 PENICILLINS; aa5 - Home Meds: 12:47 irbesartan 300 mg oral tablet once [Active]; metformin 1,000 mg Oral Tablet, Extended aa5 Release 24 hr 2 times per day [Active]; atorvastatin 80 mg oral tablet every evening [Active]; amlodipine 10 mg tablet once [Active]; omeprazole 40 mg Oral capsule,delayed release (e.c.) daily [Active]; levothyroxine 75 mcg tablet once [Active]; aspirin 81 mg Oral capsule daily [Active]; Ozempic 1 mg/dose (4 mg/3 mL) subcutaneous Pen Injector every week [Active]; Tresiba FlexTouch U-100 100 unit/mL (3 mL) subcutaneous Insulin Pen 56 units as needed [Active]; - PMHx: 12:47 Diabetes - NIDDM; Hypertension; Hypothyroidism; Pancreatitis; aa5 - PSHx: 12:47 cardiac stent; Cholecystectomy; Coronary artery bypass graft; aa5 - Immunization history:: Adult Immunizations unknown. - Social history:: Smoking status: Patient denies any tobacco usage or history of. Screenin:36 [facility] ED Fall Risk Assessment (Adult) History of falling in the last 3 months, db including since admission No falls in past 3 months (0 pts) Confusion or Disorientation No (0 pts) Intoxicated or Sedated No (0 pts) Impaired Gait No (0 pts) Mobility Assist Device Used No (0 pt) Altered Elimination No (0 pt) Score/Fall Risk Level 0 - 2 = Low Risk Oriented to surroundings, Maintained a safe environment. Abuse screen: Denies threats or abuse. Denies injuries from another. Nutritional screening: No deficits noted. Tuberculosis screening: No symptoms or risk factors identified. Assessment: 13:15 General: Appears in no apparent distress. uncomfortable. Pain: Complains of pain in db abdomen. Pain:. Neuro: Level of Consciousness is awake, alert, obeys commands, Oriented to person, place, time, situation. Respiratory: Airway is patent Respiratory effort is even, unlabored, Respiratory pattern is regular, symmetrical. GI: Abdomen is flat, non-distended, Bowel sounds present X 4 quads. Abd is soft Abdomen is tender to palpation in right upper quadrant and right lower quadrant Reports upper abdominal pain. 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 db 13:35 Reassessment: Patient appears in no apparent distress at this time. Patient and/or db family updated on plan of care and expected duration. Pain level reassessed. Patient is alert, oriented x 3, equal unlabored respirations, skin warm/dry/pink. 14:25 Reassessment: No changes from previously documented assessment. Patient and/or family ll1 updated on plan of care and expected duration. Pain level reassessed. Patient is alert, oriented x 3, equal unlabored respirations, skin warm/dry/pink. Vital Signs: 12:46 BP 176 / 93; Pulse 97; Resp 18 S; Temp 97.6(TE); Pulse Ox 98% on R/A; Weight 93.44 kg aa5 (R); Height 5 ft. 5 in. (R); 13:37 BP 143 / 61; Pulse 96; Resp 16; Pulse Ox 96% on R/A; db 14:25 BP 134 / 57; Pulse 66; Resp 17; Pulse Ox 97% ; ll1 12:46 Body Mass Index 34.28 (93.44 kg, 165.1 cm) aa5 ED Course: 12:37 Patient arrived in ED. am2 12:37 Preston Stuart DO is Private Physician. am2 12:37 Haritha Arreguin MD is Attending Physician. sp3 12:46 Arm band placed on. aa5 12:47 Triage completed. aa5 12:58 Bertha Jones, RN is Primary Nurse. ko1 13:18 Inserted saline lock: 20 gauge in left antecubital area, using aseptic technique. Blood db collected. 13:37 Patient has correct armband on for positive identification. Bed in low position. Call db light in reach. Side rails up X2. 13:41 US Abdomen Limited In Process Unspecified. EDMS 14:25 No provider procedures requiring assistance completed. IV discontinued, intact, ll1 bleeding controlled, No redness/swelling at site. Pressure dressing applied. 14:32 Provided Education on: n/a. ll1 Administered Medications: 13:24 Drug: Ondansetron IVP 4 mg Route: IVP; Site: left antecubital; db 14:25 Follow up: Response: No adverse reaction ll1 13:24 Drug: HYDROmorphone IVP 1 mg Route: IVP; Site: left antecubital; db 14:25 Follow up: Response: No adverse reaction; Pain is decreased; RASS: Alert and Calm (0) ll1 Medication: 14:32 VIS not applicable for this client. ll1 Outcome: 14:11 Discharge ordered by . sp3 14:31 Discharged to home ambulatory. ll1 14:31 Condition: stable 14:31 Discharge instructions given to patient, Instructed on discharge instructions, follow up and referral plans. Demonstrated understanding of instructions, follow-up care. 14:32 Patient left the ED. ll1 Signatures: Dispatcher [employer] EDMS Shilpa Culver, RN RN aa5 Johanna Alatorre am2 Adonis Henderson RN RN ll1 Haritha Arreguin MD MD sp3 Bertha Jones, RN RN ko1 Hanh Zhang RN RN db Corrections: (The following items were deleted from the chart) 14:31 14:25 BP 134 / 57; ll1 ll1
[2023-03-02 14:45] VITALS: TEMP 97.6
[2023-03-02 14:50] VITALS: BP 134/57; O2SAT 97
== END 2023-03-02 14:32 | disposition home or self-care (01) ==
LOC: ER 12:27
DX: R10.84 Generalized abdominal pain (principal); Z90.49 Acquired absence of other specified parts of digestive tract; E11.9 Type 2 diabetes mellitus without complications; I10 Essential (primary) hypertension; Z88.0 Allergy status to penicillin; Z88.1 Allergy status to other antibiotic agents; Z91.048 Other nonmedicinal substance allergy status; Z79.82 Long term (current) use of aspirin; Z79.4 Long term (current) use of insulin; Z95.1 Presence of aortocoronary bypass graft; Z95.818 Presence of other cardiac implants and grafts
CPT/HCPCS: 85025; 36415; 83690; 80053; 76705; J1170; J2405; 96374; 96375; 99284

== ENCOUNTER 2023-12-19 06:18 | Emergency (ER) | payer OTHER ==
[2023-12-19 07:12] LABS: Absolute Basophils 0.1 K/uL (0-0.5); Absolute Eosinophils 0.3 K/uL (0-0.5); Absolute Lymphocytes (CBC) 1.7 K/uL (0.7-4.9); Absolute Monocytes 0.6 K/uL (0.1-1.3); Basophils % 0.8 % (0-1.3); Eosinophils % 3.4 % (0-4.4); Hematocrit 37.8 % (36.0-45.0); Hemoglobin 12.6 g/dL (12.0-15.0); MCH 28.7 pg (27.0-35.0); MCHC 33.4 g/dL (32.0-36.0); MCV 86.1 fL (80-100); MPV 8.3 fL (7.6-11.3); Monocytes % 7.5 % (3.3-12.3); Neutrophils % 66.3 % (41.7-73.7); Nucleated Red Blood Cells % 0.1 % (0-0); Platelets 325 thou/uL (152-406); RBC Red Blood Cell Count 4.38 M/uL (3.86-4.86); Red Cell Distribution Width 15.4 % (12.1-15.2)
[2023-12-19 07:19] LABS: PT Prothrombin Time 10.6 SECONDS (9.5-12.5); Protime INR 0.96
[2023-12-19] MEDS ORDERED: DIPHENHYDRAMINE 50 MG/ML VIAL ONE (07:32)
[2023-12-19 07:35] LABS: ALT/SGPT 27 U/L (13-56); AST/SGOT 14 U/L (15-37); Albumin 3.4 g/dL (3.4-5.0); Albumin/Globulin Ratio 0.8 (1.1-1.8); Alkaline Phosphatase 79 U/L (45-117); Anion Gap 7.1 mEq/L (5.0-15.0); BUN Blood Urea Nitrogen 13 mg/dL (7-18); Bicarbonate 27 mEq/L (21-32); Bilirubin Direct < 0.2 mg/dL (0-0.2); Bilirubin Indirect, Calculated 0.2 mg/dL (0.2-0.8); Bilirubin Total 0.4 mg/dL (0.2-1.0); Globulin 4.1 g/dL (2.3-3.5); Glomerular Filtration Rate 71 ml/min (=/>90); Glucose Level 172 mg/dL (74-106); Magnesium 1.8 mg/dL (1.6-2.4); NT PRO-BNP 162 pg/mL (<125); Potassium 4.1 mEq/L (3.5-5.1); Protein, Total 7.5 g/dL (6.4-8.2); Sodium Level 137 mEq/L (136-145); Troponin High Sensitivity 9.5 pg/mL (<58.9)
--- NOTE | 2023-12-19 07:57 | RAD REPORT ---
EXAM DESCRIPTION: RADChest Single View12/19/2023 7:05 am CLINICAL HISTORY: CHEST PAIN COMPARISON: Chest Single View dated 01/10/2023; Chest Pa And Lat (2 Views) dated 12/31/2022; Chest Sing le View dated 12/18/2022; Chest Single View dated 12/16/2022 TECHNIQUE: Portable AP view of the chest. FINDINGS: The lungs are clear. No pneumothorax or effusion. The cardiomediastinal contours are unre markable. IMPRESSION: No acute cardiopulmonary process.
--- NOTE | 2023-12-19 09:41 | RAD REPORT ---
EXAM DESCRIPTION: US - Extremity Venous Uni Ltd - 12/19/2023 9:01 am CLINICAL HISTORY: Pain COMPARISON: None. TECHNIQUE: Real-time sonographic evaluation of the left lower extremity deep venous system was perfo rmed. FINDINGS: Normal compressibility, flow augmentation, phasic flow and spontaneous flow is identified in the left lower extremity deep venous system. No intraluminal filling defects seen. IMPRESSION: No DVT in the left lower extremity.
--- NOTE | 2023-12-19 10:23 | ER ---
Nurse's Notes [facility] Name: Laura Khanna Age: 73 yrs Sex: Female : 1950 Arrival Date: 12/19/2023 Time: 06:18 Bed 4 Private MD: Preston Stuart Diagnosis: Rash and other nonspecific skin eruption Presentation: 12/18 06:45 Chief complaint: Patient states: Rash that is painful and sutton all over body. Pt cm10 states that it began 3 days ago and has progressively gotten worse. Pt noted to have rash on bilateral legs, arms, feet, neck and on face. Coronavirus screen: Vaccine status: Patient reports being unvaccinated. Client denies travel out of the [place] in the last 14 days. At this time, the client does not indicate any symptoms associated with coronavirus-19. Ebola Screen: Patient denies travel to an Ebola-affected area in the 21 days before illness onset. No symptoms or risks identified at this time. Initial Sepsis Screen: Does the patient meet any 2 criteria? No. Patient's initial sepsis screen is negative. Does the patient have a suspected source of infection? No. Patient's initial sepsis screen is negative. Risk Assessment: Do you want to hurt yourself or someone else? Patient reports no desire to harm self or others. Onset of symptoms was December 16, 2023. 06:45 Method Of Arrival: Ambulatory cm10 06:45 Acuity: ZACARIAS 3 cm10 Triage Assessment: 06:48 General: Appears in no apparent distress. comfortable, Behavior is calm, cooperative. cm10 Pain: Complains of pain in Generalized Pain currently is 10 out of 10 on a pain scale. Quality of pain is described as burning. Neuro: No deficits noted. Level of Consciousness is awake, alert, obeys commands, Oriented to person, place, time, situation, Appropriate for age. Respiratory: No deficits noted. Airway is patent Respiratory effort is even, unlabored, Respiratory pattern is regular, symmetrical. Derm: Rash noted that is red, on right eye, right foot, left foot, right leg, left leg and neck. Musculoskeletal: No deficits noted. Range of motion: intact in all extremities. Historical: - Allergies: 06:48 Iodine; cm10 06:48 Levaquin; cm10 06:48 PENICILLINS; cm10 - PMHx: 06:48 Diabetes - NIDDM; Hypertension; Hypothyroidism; Pancreatitis; Myocardial infarction; cm10 - PSHx: 06:48 cardiac stent; Cholecystectomy; Coronary artery bypass graft; cm10 - Immunization history:: Adult Immunizations up to date. - Infectious Disease History:: Denies. - Social history:: Smoking status: Patient denies any tobacco usage or history of. - Family history:: not pertinent. - Hospitalizations: : No recent hospitalization is reported. Screenin:49 [facility] ED Fall Risk Assessment (Adult) History of falling in the last 3 months, cm10 including since admission No falls in past 3 months (0 pts) Confusion or Disorientation No (0 pts) Intoxicated or Sedated No (0 pts) Impaired Gait No (0 pts) Mobility Assist Device Used No (0 pt) Altered Elimination No (0 pt) Score/Fall Risk Level 0 - 2 = Low Risk Oriented to surroundings, Maintained a safe environment, Hourly rounding (assess needs \T\ fall precautionary measures) done. Abuse screen: Denies threats or abuse. Denies injuries from another. Nutritional screening: No deficits noted. Tuberculosis screening: No symptoms or risk factors identified. Assessment: 07:09 General: Appears in no apparent distress. comfortable, Behavior is calm, cooperative, ld1 appropriate for age. Pain: Complains of pain in abdomen, right foot, left foot, right arm, left arm, right leg and left leg Pain does not radiate. Pain currently is 8 out of 10 on a pain scale. Quality of pain is described as throbbing, Pain began suddenly, Is continuous. Neuro: Level of Consciousness is awake, alert, obeys commands, Oriented to person, place, time, situation. Cardiovascular: Capillary refill < 3 seconds Patient's skin is warm and dry. Respiratory: Airway is patent Respiratory effort is even, unlabored. GI: Abdomen is round non-distended. : No signs and/or symptoms were reported regarding the genitourinary system. Derm: Rash noted that is itchy, red, on abdomen, right foot, left foot, right arm, left arm, right leg and left leg. 10:40 Reassessment: Patient appears in no apparent distress at this time. No changes from ld1 previously documented assessment. Patient and/or family updated on plan of care and expected duration. Pain level reassessed. Patient is alert, oriented x 3, equal unlabored respirations, skin warm/dry/pink. Vital Signs: 06:45 BP 187 / 84; Pulse 86; Resp 16; Temp 98.2(O); Pulse Ox 97% on R/A; Weight 96.62 kg; cm10 Height 5 ft. 5 in. ; Pain 10/10; 07:09 BP 172 / 80; Pulse 77; Resp 18; Pulse Ox 97% on R/A; ld1 08:41 BP 180 / 66; Pulse 74; Resp 16; Pulse Ox 98% ; ko1 09:55 BP 176 / 76; Pulse 66; Resp 18; Pulse Ox 95% on R/A; ld1 10:36 BP 150 / 73; Pulse 72; Resp 16; Pulse Ox 99% ; ko1 06:45 Body Mass Index 35.44 (96.62 kg, 165.1 cm) cm10 06:45 Pain Scale: Adult cm10 ED Course: 06:26 Patient arrived in ED. gm2 06:27 Preston Stuart DO is Private Physician. gm2 06:47 Triage completed. cm10 06:49 Arm band placed on Patient placed in an exam room, on a stretcher. cm10 06:49 Patient has correct armband on for positive identification. Bed in low position. Call cm10 light in reach. Provided Education on: ER process and procedures. 06:50 Odilon Mckeon MD is Attending Physician. sp4 07:03 Attending Physician role handed off by Odilon Mckeon MD rn 07:03 Faustino Roberts MD is Attending Physician. rn 07:07 XRAY Chest (1 view) In Process Unspecified. EDMS 07:08 Sindy Tena, RN is Primary Nurse. ld1 07:08 No provider procedures requiring assistance completed. Inserted saline lock: 20 gauge ld1 in left wrist, using aseptic technique. Blood collected. 07:09 Door closed. Noise minimized. Warm blanket given. ld1 07:10 Pulse ox on. NIBP on. ko1 07:10 Initial lab(s) drawn, by me, sent to lab. EKG done, by ED staff, reviewed by Faustino Roberts MD. 09:03 Extremity Venous Uni Ltd US In Process Unspecified. EDMS 09:30 Assisted to bathroom. ko1 10:36 IV discontinued, intact, bleeding controlled, No redness/swelling at site. Pressure ko1 dressing applied. Administered Medications: 07:41 Drug: diphenhydrAMINE IVP 50 mg IVP once Route: IVP; Site: left forearm; ko1 07:56 Follow up: Response: No adverse reaction ko1 10:33 Drug: Clindamycin PO 300 mg PO once Route: PO; ko1 Medication: 06:49 VIS not applicable for this client. [email or web address] Outcome: 10:22 Discharge ordered by . rn 10:40 Discharged to home ambulatory, with family, ld1 10:40 Condition: stable 10:40 Discharge instructions given to patient, family, Instructed on discharge instructions, follow up and referral plans. medication usage, Demonstrated understanding of instructions, follow-up care, medications, Prescriptions given X 2, 10:40 Patient left the ED. ld1 Signatures: Dispatcher [employer] EDMS Faustino Roberts MD MD rn Sims, Lauren, RN RN ld1 Bertha Jones RN RN ko1 Odilon Mckeon MD MD sp4 Tierney Marshall RN RN cm10 Vira Amos 2
--- NOTE | 2023-12-19 10:23 | EDPHYS ---
Physician Documentation [facility] Name: Laura Khanna Age: 73 yrs Sex: Female : 1950 Arrival Date: 12/19/2023 Time: 06:18 Bed 4 Private MD: Preston Stuart ED Physician Faustino Roberts HPI: 12/18 06:51 This 73 yrs old Female presents to ER via Ambulatory with complaints of Rash, sp4 Pain All Over. 07:13 The patient's rash thought to be caused by an unknown cause. The rash is located on the rn right arm, left arm, right leg, left leg and neck. Onset: The symptoms/episode began/occurred 3 day(s) ago. Associated signs and symptoms: Pertinent positives: itching, Pertinent negatives: Pain swelling of lips, swelling of throat, swelling of tongue, wheezing. Treatment given at home: Benadryl, OTC lotion/cream. The patient has not experienced similar symptoms in the past. Patient reports admitted for rash, located on arms and legs as well as neck. Not on torso. Itches a lot. No new medication or change in any of her prescriptions. Family lives with her and does not have rash. No exposure. Patient denies any fever. Reports pain all over and achy joints. No trauma. No rash on palms or soles. No intraoral rash. No chest pain or shortness of breath. Has never had before.. Historical: - Allergies: 06:48 Iodine; cm10 06:48 Levaquin; cm10 06:48 PENICILLINS; cm10 - PMHx: 06:48 Diabetes - NIDDM; Hypertension; Hypothyroidism; Pancreatitis; Myocardial infarction; cm10 - PSHx: 06:48 cardiac stent; Cholecystectomy; Coronary artery bypass graft; cm10 - Immunization history:: Adult Immunizations up to date. - Infectious Disease History:: Denies. - Social history:: Smoking status: Patient denies any tobacco usage or history of. - Family history:: not pertinent. - Hospitalizations: : No recent hospitalization is reported. ROS: 07:13 Constitutional: Negative for fever, chills, and weight loss, Cardiovascular: Negative rn for chest pain, palpitations, and edema, Respiratory: Negative for shortness of breath, cough, wheezing, and pleuritic chest pain, Abdomen/GI: Negative for abdominal pain, nausea, vomiting, diarrhea, and constipation, Back: Negative for injury and pain, MS/Extremity: Negative for injury and deformity, Skin: Positive for rash and itching Neuro: Negative for headache, weakness, numbness, tingling, and seizure, Exam: 07:13 Constitutional: This is a well developed, well nourished patient who is awake, alert, rn and in no acute distress. Head/Face: Normocephalic, atraumatic. ENT: No intraoral rash noted Cardiovascular: Regular rate and rhythm. No pulse deficits. Respiratory: No increased work of breathing, no retractions or nasal flaring. Skin: Diffuse papular/pustular rash with numerous excoriations located on bilateral legs and feet as well as arms and anterior neck. No fluctuance. Rash is bilateral. No rash on palms or soles. No bulla. Neuro: Awake and alert, GCS 15 07:54 ECG was reviewed by the Attending Physician. rn Vital Signs: 06:45 BP 187 / 84; Pulse 86; Resp 16; Temp 98.2(O); Pulse Ox 97% on R/A; Weight 96.62 kg; cm10 Height 5 ft. 5 in. ; Pain 10/10; 07:09 BP 172 / 80; Pulse 77; Resp 18; Pulse Ox 97% on R/A; ld1 08:41 BP 180 / 66; Pulse 74; Resp 16; Pulse Ox 98% ; ko1 09:55 BP 176 / 76; Pulse 66; Resp 18; Pulse Ox 95% on R/A; ld1 10:36 BP 150 / 73; Pulse 72; Resp 16; Pulse Ox 99% ; ko1 06:45 Body Mass Index 35.44 (96.62 kg, 165.1 cm) cm10 06:45 Pain Scale: Adult cm10 MDM: 06:53 Patient medically screened. sp4 10:22 Differential diagnosis: allergic reaction, Folliculitis, nonspecific rash, rn rheumatologic problem. Data reviewed: vital signs, nurses notes, lab test result(s), radiologic studies, plain films, ultrasound, and as a result, I will discharge patient. Counseling: I had a detailed discussion with the patient and/or guardian regarding the historical points, exam findings, and any diagnostic results supporting the discharge/admit diagnosis, lab results, radiology results, the need for outpatient follow up, to return to the emergency department if symptoms worsen or persist or if there are any questions or concerns that arise at home. Response to treatment: the patient's symptoms have markedly improved after treatment, and as a result, I will discharge patient. Special discussion: I discussed with the patient/guardian in detail that at this point there is no indication for admission to the hospital. It is understood, however, that if the symptoms persist or worsen the patient needs to return immediately for re-evaluation. 12/18 06:53 Order name: Basic Metabolic Panel; Complete Time: 07:37 12/18 06:53 Order name: CBC with Diff; Complete Time: 07:37 12/18 06:53 Order name: LFT's; Complete Time: 07:37 12/18 06:53 Order name: Magnesium; Complete Time: 07:37 12/18 06:53 Order name: NT PRO-BNP; Complete Time: 07:37 12/18 06:53 Order name: PT-INR; Complete Time: 07:37 12/18 06:53 Order name: Troponin HS; Complete Time: 07:37 12/18 06:53 Order name: XRAY Chest (1 view); Complete Time: 08:00 12/18 08:31 Order name: Extremity Venous Uni Ltd US; Complete Time: 10:18 12/18 06:53 Order name: EKG; Complete Time: 06:53 12/18 06:53 Order name: Cardiac monitoring; Complete Time: 07:06 12/18 06:53 Order name: EKG - Nurse/Tech; Complete Time: 07:21 12/18 06:53 Order name: IV Saline Lock; Complete Time: 07:08 12/18 06:53 Order name: Labs collected and sent; Complete Time: 07:08 12/18 06:53 Order name: O2 Per Protocol; Complete Time: 07:06 12/18 06:53 Order name: O2 Sat Monitoring; Complete Time: 07:06 EC:54 Rate is 73 beats/min. Rhythm is regular. QRS is positive in lead I and negative in lead rn aVF. ME interval is normal. QRS interval is normal. QT interval is normal. No Q waves. T waves are Normal. No ST changes noted. Clinical impression: NSR w/ Non-specific ST/T Changes. Interpreted by me. Reviewed by me. Administered Medications: 07:41 Drug: diphenhydrAMINE IVP 50 mg IVP once Route: IVP; Site: left forearm; ko1 07:56 Follow up: Response: No adverse reaction ko1 10:33 Drug: Clindamycin PO 300 mg PO once Route: PO; ko1 Disposition Summary: 12/19/23 10:22 Discharge Ordered Notes: Location: Home rn Problem: new rn Symptoms: have improved rn Condition: Stable rn Diagnosis - Rash and other nonspecific skin eruption rn Followup: rn - With: Private Physician - When: As needed - Reason: Recheck today's complaints, Re-evaluation by your physician Discharge Instructions: - Discharge Summary Sheet rn - Rash, Adult rn Forms: - Medication Reconciliation Form rn - Antibiotic actuarial internship - Prescription Opioid Use rn - Patient Portal Instructions rn - Leadership Thank You Letter rn Prescriptions: - Clindamycin HCl 300 mg Oral Capsule - take 1 capsule ORAL route every 6 hours for 10 days; 40 capsule; Refills: 0, rn Product Selection Permitted - Hydroxyzine HCl 50 mg Oral Tablet - take 1 tablet ORAL route every 8 hours As needed; 20 tablet; Refills: 0, rn Product Selection Permitted Signatures: Dispatcher [employer] Faustino Garrett MD MD rn Oliver, Kathy RN RN ko1 Odilon Mckeon MD MD sp4 Tierney Marshall, RN RN cm10
[2023-12-19 10:52] VITALS: BP 150/73; TEMP 98.2; O2SAT 99
--- NOTE | 2023-12-20 11:02 | EKG ---
Test Date: 2023-12-19 Test Time: 07:17:03 Dealer Support Technician: KJ MEASUREMENT RESULTS: Intervals: Rate: 73 UT: 154 QRSD: 128 QT: 428 QTc: 471 [place]: P: 41 UT: 154 QRS: -66 T: 82 INTERPRETIVE STATEMENTS: Normal sinus rhythm Left axis deviation Left bundle branch block Abnormal ECG Compared to ECG 01/10/2023 18:33:16 No significant changes Electronically Signed On 12-20-23 10:59:57 CDT by Cristiano Nelson
== END 2023-12-19 10:40 | disposition home or self-care (01) ==
LOC: ER 06:18
DX: R21 Rash and other nonspecific skin eruption (principal); Z88.0 Allergy status to penicillin; Z88.1 Allergy status to other antibiotic agents; Z91.048 Other nonmedicinal substance allergy status; Z95.1 Presence of aortocoronary bypass graft; Z95.818 Presence of other cardiac implants and grafts
CPT/HCPCS: 93005; 85025; 80048; 36415; 83735; 85610; 80076; 84484; 83880; 71045; 93971; 96374; 99285; J1200

== ENCOUNTER 2024-10-30 13:01 | Emergency (ER) | payer OTHER ==
[2024-10-30 14:21] LABS: Influenza A Ag Negative; Influenza B Ag Negative; SARS-CoV-2 Antigen Rapid Res Negative (Negative)
--- NOTE | 2024-10-30 15:42 | RAD REPORT ---
EXAMINATION: ONE VIEW CHEST XR CLINICAL INDICATION: Female, 74 years old.,Chest pain;Dyspnea TECHNIQUE: Frontal chest projection is submitted. Examination is limited by patient positioning and t echnique. COMPARISON: 12/19/2023. FINDINGS: The lungs are well inflated and clear. No pneumothorax or sizable effusion. The heart is normal in s ize. Mediastinal contours are unremarkable. IMPRESSION: No acute intrathoracic abnormalities.
[2024-10-30 15:53] LABS: Absolute Basophils 0.1 K/uL (0-0.5); Absolute Eosinophils 0.3 K/uL (0-0.5); Absolute Lymphocytes (CBC) 1.7 K/uL (0.7-4.9); Absolute Monocytes 0.6 K/uL (0.1-1.3); Absolute Neutrophil 5.9 K/uL (1.8-8.0); Basophils % 0.9 % (0-1.3); Hematocrit 36.1 % (36.0-45.0); Hemoglobin 11.7 g/dL (12.0-15.0); MCH 26.6 pg (27.0-35.0); MCHC 32.5 g/dL (32.0-36.0); MPV 8.9 fL (7.6-11.3); Monocytes % 7.2 % (3.3-12.3); Neutrophils % 68.9 % (41.7-73.7); Platelets 344 thou/uL (152-406); Red Cell Distribution Width 16.8 % (12.1-15.2)
[2024-10-30 16:17] LABS: Troponin High Sensitivity 13.8 pg/mL (<58.9)
--- NOTE | 2024-10-30 17:19 | EDPHYS ---
Physician Documentation [facility] Name: Laura Khanna Age: 74 yrs Sex: Female : 1950 Arrival Date: 10/30/2024 Time: 13:01 Bed 19 Private MD: ED Physician Faustino Roberts HPI: 10/30 14:17 This 74 yrs old Female presents to ER via Ambulatory with complaints of Breathing rn Difficulty, Chest Tightness. 14:17 The patient has shortness of breath with light activity. rn 14:17 Onset: The symptoms/episode began/occurred 3 day(s) ago. Duration: The symptoms are rn intermittent. The patient's shortness of breath is aggravated by exertion, light activity. Severity of symptoms: At their worst the symptoms were mild in the emergency department the symptoms are unchanged. The patient has not experienced similar symptoms in the past. Patient reports 3 days of nausea/diarrhea. Woke up this morning with dyspnea on exertion. No chest pain. Reports subjective fever. Nonproductive cough.. Historical: - Allergies: 13:44 Iodine; me1 13:44 PENICILLINS; me1 13:44 Levaquin; me1 - PMHx: 13:44 Diabetes - NIDDM; Hypertension; Hypothyroidism; Myocardial infarction; Pancreatitis; me1 - PSHx: 13:44 cardiac stent; Coronary artery bypass graft; Cholecystectomy; me1 - Immunization history:: Adult Immunizations up to date. - Infectious Disease History:: Denies. - Social history:: Smoking status: Patient denies any tobacco usage or history of. - Family history:: not pertinent. - Hospitalizations: : No recent hospitalization is reported. ROS: 14:17 Constitutional: Negative for fever, chills, and weight loss, Cardiovascular: Negative rn for chest pain, palpitations, and edema, Respiratory: Positive for cough and shortness of breath Abdomen/GI: Negative for abdominal pain MS/Extremity: Negative for injury and deformity, Neuro: Positive for generalized weakness and malaise Exam: 14:17 Constitutional: This is a well developed, well nourished patient who is awake, alert, rn and in no acute distress. ENT: No stridor Cardiovascular: Regular rate and rhythm. No pulse deficits. Respiratory: Mild tachypnea, diminished at bases, no wheezing no increased work of breathing, no retractions or nasal flaring. Abdomen/GI: Soft, non-tender MS/ Extremity: Pulses equal, no cyanosis. Neuro: Awake and alert, GCS 15 17:38 ECG was reviewed by the Attending Physician. rn Vital Signs: 13:42 BP 180 / 71; Pulse 92; Resp 20; Temp 97.5; Pulse Ox 97% ; Weight 97.52 kg; Height 5 ft. me1 5 in. ; Pain 0/10; 17:09 BP 144 / 61; Pulse 78; Resp 18; Pulse Ox 96% on R/A; ap3 13:42 Body Mass Index 35.78 (97.52 kg, 165.1 cm) me1 13:42 Pain Scale: Adult me1 MDM: 13:19 Medical Screening Exam initiated rn 17:18 Differential diagnosis: Bronchitis Myocardial Infarction pneumonia, Pneumothorax. Data rn reviewed: vital signs, nurses notes, lab test result(s), radiologic studies, plain films, and as a result, I will discharge patient. Counseling: I had a detailed discussion with the patient and/or guardian regarding the historical points, exam findings, and any diagnostic results supporting the discharge/admit diagnosis, lab results, radiology results, the need for outpatient follow up, to return to the emergency department if symptoms worsen or persist or if there are any questions or concerns that arise at home. Special discussion: I discussed with the patient/guardian in detail that at this point there is no indication for admission to the hospital. It is understood, however, that if the symptoms persist or worsen the patient needs to return immediately for re-evaluation. 10/30 13:19 Order name: Basic Metabolic Panel; Complete Time: 16:47 rn 10/30 13:19 Order name: CBC with Diff; Complete Time: 16:47 rn 10/30 13:19 Order name: NT PRO-BNP; Complete Time: 16:47 rn 10/30 13:19 Order name: Troponin HS; Complete Time: 16:47 rn 10/30 13:50 Order name: COVID-19 Ag + Flu A+B Ag; Complete Time: 15:49 rn 10/30 13:50 Order name: Group A Streptococcus Rapid; Complete Time: 15:49 rn 10/30 14:24 Order name: Throat Culture EDMS 10/30 13:19 Order name: XRAY Chest (1 view); Complete Time: 15:49 rn 10/30 13:19 Order name: Cardiac monitoring; Complete Time: 15:47 rn 10/30 13:19 Order name: EKG - Nurse/Tech; Complete Time: 15:47 rn 10/30 13:19 Order name: IV Saline Lock; Complete Time: 15:47 rn 10/30 13:19 Order name: Labs collected and sent; Complete Time: 15:47 rn 10/30 13:19 Order name: O2 Per Protocol; Complete Time: 15:47 rn 10/30 13:19 Order name: O2 Sat Monitoring; Complete Time: 15:47 rn EC:38 Rate is 84 beats/min. Rhythm is regular. Left axis deviation noted. QRS is positive in rn lead I and negative in lead aVF. [place] interval is normal. QRS interval is prolonged at 128 msec. QT interval is normal. No Q waves. T waves are Normal. No ST changes noted. Clinical impression: NSR w/ Non-specific ST/T Changes. Interpreted by me. Reviewed by me. Administered Medications: 17:22 Drug: AZITHromycin PO 500 mg PO once Route: PO; ap3 17:29 Follow up: Response: No adverse reaction ap3 Disposition Summary: 10/30/24 17:18 Discharge Ordered Notes: Location: Home rn Problem: new rn Symptoms: have improved rn Condition: Stable rn Diagnosis - Cough rn - Dyspnea, unspecified rn Followup: rn - With: Private Physician - When: As needed - Reason: Recheck today's complaints, Re-evaluation by your physician Discharge Instructions: - Discharge Summary Sheet rn - Shortness of Breath, Adult rn - Cough, Adult rn Forms: - Medication Reconciliation Form rn - Antibiotic burner shaft - Prescription Opioid Use rn - Patient Portal Instructions rn - Leadership Thank You Letter rn Prescriptions: - Zithromax Z-Rusty 250 mg Oral Tablet - take 1 tablet ORAL route as directed for 5 days Day 1 - take two (2) tablets rn one time. Day 2, 3, 4 , 5 take one (1) tablet once daily.; 6 tablet; Refills: 0, Product Selection Permitted Signatures: Dispatcher [employer] EDMS Faustino Roberts MD MD rn Prokisch, Amanda, RN RN ap3 Dorothy Duke RN RN me1 Corrections: (The following items were deleted from the chart) 13:20 13:20 Chest Single View+RAD.RAD.BRZ ordered. EDMS EDMS 13:51 13:51 COVID-19 Ag + Flu A+B Ag+I.LAB.BRZ ordered. EDMS EDMS 13:51 13:51 Group A Streptococcus Rapid Sc+I.LAB.BRZ ordered. EDMS EDMS
--- NOTE | 2024-10-30 17:19 | ER ---
Nurse's Notes [facility] Name: Laura Khanna Age: 74 yrs Sex: Female : 1950 Arrival Date: 10/30/2024 Time: 13:01 Bed 19 Private MD: Diagnosis: Cough;Dyspnea, unspecified Presentation: 10/30 13:42 Chief complaint: Patient states: c/o n/d x 3 days, woke up at 02:00 gasping for air and me1 is SOB w/exertion today. c/o generalized weakness. Coronavirus screen: Vaccine status: Patient reports being unvaccinated. Ebola Screen: No symptoms or risks identified at this time. Initial Sepsis Screen: Does the patient meet any 2 criteria? No. Patient's initial sepsis screen is negative. Does the patient have a suspected source of infection? No. Patient's initial sepsis screen is negative. Risk Assessment: Do you want to hurt yourself or someone else? Patient reports no desire to harm self or others. Onset of symptoms was October 27, 2024. 13:42 Method Of Arrival: Amb[place] [facility] [place] 13:42 Acuity: ZACARIAS 3 me1 Triage Assessment: 17:28 General: Appears in no apparent distress. comfortable. Respiratory: Onset: The ap3 symptoms/episode began/occurred gradually, the patient has mild shortness of breath. Historical: - Allergies: 13:44 Iodine; me1 13:44 PENICILLINS; me1 13:44 Levaquin; me1 - PMHx: 13:44 Diabetes - NIDDM; Hypertension; Hypothyroidism; Myocardial infarction; Pancreatitis; me1 - PSHx: 13:44 cardiac stent; Coronary artery bypass graft; Cholecystectomy; me1 - Immunization history:: Adult Immunizations up to date. - Infectious Disease History:: Denies. - Social history:: Smoking status: Patient denies any tobacco usage or history of. - Family history:: not pertinent. - Hospitalizations: : No recent hospitalization is reported. Screenin:26 [facility] ED Fall Risk Assessment (Adult) History of falling in the last 3 months, ap3 including since admission No falls in past 3 months (0 pts) Confusion or Disorientation No (0 pts) Intoxicated or Sedated No (0 pts) Impaired Gait No (0 pts) Mobility Assist Device Used No (0 pt) Altered Elimination No (0 pt) Score/Fall Risk Level 0 - 2 = Low Risk Oriented to surroundings, Maintained a safe environment, Educated pt \T\ family on fall prevention, incl call for assistance when getting out of bed, Assessed \T\ reinforced patient's understanding of fall precautions, Hourly rounding (assess needs \T\ fall precautionary measures) done, Used ambulatory aids as needed (educated on \T\ assisted with). Abuse screen: Denies threats or abuse. Nutritional screening: No deficits noted. Tuberculosis screening: No symptoms or risk factors identified. Assessment: 17:27 General: Appears in no apparent distress. Behavior is calm, cooperative, appropriate ap3 for age. Pain: Complains of pain in chest. Neuro: Level of Consciousness is awake, alert, obeys commands, Oriented to person, place, time, situation. Cardiovascular: Patient's skin is warm and dry. Cardiovascular: Rhythm is regular. Respiratory: Airway is patent Respiratory effort is even, unlabored. GI: Abdomen is non-distended, Reports diarrhea. 17:28 Respiratory: ap3 Vital Signs: 13:42 BP 180 / 71; Pulse 92; Resp 20; Temp 97.5; Pulse Ox 97% ; Weight 97.52 kg; Height 5 ft. me1 5 in. ; Pain 0/10; 17:09 BP 144 / 61; Pulse 78; Resp 18; Pulse Ox 96% on R/A; ap3 13:42 Body Mass Index 35.78 (97.52 kg, 165.1 cm) me1 13:42 Pain Scale: Adult sd1 ED Course: 13:05 Patient arrived in ED. cj3 13:19 Faustino Roberts MD is Attending Physician. rn 13:44 Triage completed. me1 13:44 Arm band placed on Patient placed in waiting room. me1 13:47 COVID swab sent to lab. Flu and/or RSV swab sent to lab. Strep swab sent to lab. me1 15:00 XRAY Chest (1 view) In Process Unspecified. EDMS 15:42 Inserted saline lock: 20 gauge in right antecubital area, using aseptic technique. jb4 Blood collected. 15:47 Basic Metabolic Panel Sent. jb4 15:47 CBC with Diff Sent. jb4 15:47 NT PRO-BNP Sent. jb4 15:47 Troponin HS Sent. jb4 17:09 Johanna Schultz, RN is Primary Nurse. ap3 17:28 Patient has correct armband on for positive identification. Placed in gown. Bed in low ap3 position. Call light in reach. Side rails up X2. Adult w/ patient. Provided Education on: discharge instructions. 17:28 No provider procedures requiring assistance completed. IV discontinued, intact, ap3 bleeding controlled, No redness/swelling at site. Pressure dressing applied. Administered Medications: 17:22 Drug: AZITHromycin PO 500 mg PO once Route: PO; ap3 17:29 Follow up: Response: No adverse reaction ap3 Medication: 17:28 VIS not applicable for this client. ap3 Outcome: 17:18 Discharge ordered by . rn 17:28 Condition: good ap3 17:32 Discharged to home ambulatory, with family, ap3 17:32 Discharge instructions given to patient, Instructed on discharge instructions, follow up and referral plans. medication usage, Demonstrated understanding of instructions, follow-up care, medications, Prescriptions given X 1, 17:32 Patient left the ED. ap3 Signatures: Dispatcher [employer] EDMS Faustino Roberts MD MD rn Bryson, James RN RN jb4 Johanna Schultz RN RN ap3 Dorothy Duke RN RN me1 Corina Bell 3 Corrections: (The following items were deleted from the chart) 13:45 13:44 Arm band placed on Patient placed in an exam room, me1 me1
[2024-10-30] MEDS ORDERED: AZITHROMYCIN 250 MG TAB ONE (17:20)
[2024-10-30 17:58] VITALS: BP 144/61; O2SAT 96
[2024-10-30 18:00] VITALS: TEMP 97.5
--- NOTE | 2024-11-01 08:42 | EKG ---
Test Date: 2024-10-30 Test Time: 15:35:01 Palliative Nurse: SINGH MEASUREMENT RESULTS: Intervals: Rate: 84 IN: 154 QRSD: 128 QT: 402 QTc: 475 Alice: P: 41 IN: 154 QRS: -50 T: 88 INTERPRETIVE STATEMENTS: Normal sinus rhythm Left axis deviation Nonspecific intraventricular block Abnormal ECG Compared to ECG 12/19/2023 07:17:03 Left bundle-branch block no longer present Electronically Signed On 11-01-24 08:37:16 CDT by Cristiano Nelson
== END 2024-10-30 17:32 | disposition home or self-care (01) ==
LOC: ER 13:01
DX: R05.9 Cough, unspecified (principal); R06.00 Dyspnea, unspecified; R53.1 Weakness; Z11.52 Encounter for screening for COVID-19; I10 Essential (primary) hypertension; Z95.1 Presence of aortocoronary bypass graft; Z95.818 Presence of other cardiac implants and grafts
CPT/HCPCS: 36415; 71045; 80048; 83880; 84484; 85025; 87070; 87428; 93005; 99284

== ENCOUNTER 2024-12-30 05:01 | Emergency (ER) | payer OTHER ==
[2024-12-30] MEDS ORDERED: ONDANSETRON 4 MG/2 ML VIAL ONE ×2 (05:51→15:55)
[2024-12-30] MEDS ORDERED: KETOROLAC 30 MG/ML INJ ONE (05:51)
[2024-12-30] MEDS ORDERED: FENTANYL CITR 100 MCG/2 ML ONE (05:51)
[2024-12-30] MEDS ORDERED: FAMOTIDINE 20 MG/2 ML VIAL IV ONE (05:52)
[2024-12-30] MEDS ORDERED: NA CHLORIDE 0.9% 1,000 ML ONE (05:52)
[2024-12-30 06:10] LABS: Absolute Basophils 0.1 K/uL (0-0.5); Absolute Eosinophils 0.2 K/uL (0-0.5); Absolute Lymphocytes (CBC) 1.3 K/uL (0.7-4.9); Absolute Monocytes 0.6 K/uL (0.1-1.3); Absolute Neutrophil 4.5 K/uL (1.8-8.0); Basophils % 0.9 % (0-1.3); Eosinophils % 3.1 % (0-4.4); Hematocrit 31.4 % (36.0-45.0); Hemoglobin 10.4 g/dL (12.0-15.0); Lymphocytes % 20.1 % (15.3-44.8); MCH 26.5 pg (27.0-35.0); MCHC 33.1 g/dL (32.0-36.0); MCV 80.1 fL (80-100); MPV 8.8 fL (7.6-11.3); Monocytes % 9.1 % (3.3-12.3); Neutrophils % 66.8 % (41.7-73.7); Nucleated Red Blood Cells % 0.1 % (0-0); Platelets 292 thou/uL (152-406); RBC Red Blood Cell Count 3.92 M/uL (3.86-4.86); Red Cell Distribution Width 17.4 % (12.1-15.2)
[2024-12-30 06:30] LABS: ALT/SGPT 16 U/L (13-56); Albumin 3.1 g/dL (3.4-5.0); Albumin/Globulin Ratio 0.7 (1.1-1.8); Alkaline Phosphatase 63 U/L (45-117); Anion Gap 9.9 mEq/L (5.0-15.0); BUN Blood Urea Nitrogen 14 mg/dL (7-18); Bicarbonate 28 mEq/L (21-32); Bilirubin Total 0.5 mg/dL (0.2-1.0); Globulin 4.2 g/dL (2.3-3.5); Glomerular Filtration Rate 86 ml/min (=/>90); Glucose Level 145 mg/dL (74-106); Lipase 37 U/L (13-75); Potassium 3.9 mEq/L (3.5-5.1); Protein, Total 7.3 g/dL (6.4-8.2); Sodium Level 138 mEq/L (136-145)
[2024-12-30 06:32] LABS: AST/SGOT < 10 U/L (15-37)
[2024-12-30 06:34] LABS: Specific Gravity 1.016 (1.005-1.030); Sqamous Epithelial <5 /HPF (None Seen); Urine Bacteria <20 /HPF (<20); Urine Bilirubin NEGATIVE (Negative); Urine Blood Negative (Negative); Urine Clarity Clear (Clear); Urine Color Light-Yellow (Yellow); Urine Crystals Unidentified Few /HPF (None Seen); Urine Glucose NEGATIVE (Negative); Urine Ketones NEGATIVE (Negative); Urine Micro Reflex YN NO BILL MICROSCOPIC; Urine Nitrite NEGATIVE (Negative); Urine Protein TRACE (Negative); Urine RBC <5 /HPF (None Seen); Urine Urobilinogen Normal (Normal); Urine WBC <5 /HPF (<5); Urine Yeast (Budding) Trace /HPF (None Seen)
--- NOTE | 2024-12-30 06:49 | RAD REPORT ---
CLINICAL HISTORY: Abdominal pain. COMPARISON: US Abdomen 03/02/2023. TECHNIQUE: CT ABDOMEN PELVIS WITHOUT IV CONTRAST on 12/30/2024 5:36 AM CDT This exam was performed according to our departmental dose-optimization program, which includes autom ated exposure control, adjustment of the mA and/or kV according to patient size and/or use of iterative reconstruction technique. FINDINGS: Lower lungs are clear. Abdomen: Liver is normal in size. There is moderate pneumobilia. There is no biliary dilatation. Gall bladder is absent. The pancreas and spleen are normal in appearance. Adrenal glands are normal. Kidneys are mildly atrophic. Abdominal aorta is normal in course and caliber without aneurysm. There is no free air. There is no r etroperitoneal adenopathy. Pelvis: There is no bowel obstruction. Urinary bladder is unremarkable. There is no free fluid. Hyste rectomy was performed. Appendix is not clearly seen. Skeleton: There are no acute osseous findings. No suspicious bony lesions. IMPRESSION: No definite acute process. Electronically signed by: Rikki Banks MD 12/30/2024 06:45 AM CDT RP Due to temporary technical issues with the PACS/DrFirst reporting system, reports are being enrique d by the in-house radiologist without review as a courtesy to ensure prompt reporting the interpreting radiologist is fully responsible for the content of the report. Transcribed Date/Time: 12/30/2024 6:49 AM
[2024-12-30] MEDS ORDERED: NA CHLORIDE 0.9% 100 ML ONE (07:58)
[2024-12-30] MEDS ORDERED: Meropenem 1000 MG/VIAL IV ONE (07:58)
--- NOTE | 2024-12-30 08:42 | EDPHYS ---
Physician Documentation [facility] Name: Laura Khanna Age: 74 yrs Sex: Female : 1950 Arrival Date: 12/30/2024 Time: 05:01 Bed 18 Private MD: ED Physician Odilon Mckeon HPI: 12/30 05:10 This 74 yrs old Female presents to ER via Unassigned with complaints of Low sp4 Back Pain, Abdominal Pain. 08:42 74-year-old female presents with acute right upper abdominal pain, associated with sp4 nausea vomiting.. Historical: - Allergies: 05:19 Iodine; jb4 05:19 PENICILLINS; jb4 05:19 Levaquin; jb4 - PMHx: 05:19 Pancreatitis; Myocardial infarction; Hypothyroidism; Diabetes - NIDDM; Hypertension; jb4 - PSHx: 05:19 cardiac stent; Cholecystectomy; Coronary artery bypass graft; Appendectomy; jb4 Tonsillectomy; - Immunization history:: Adult Immunizations up to date. - Infectious Disease History:: Denies. - Social history:: Smoking status: Patient denies any tobacco usage or history of. Smoking status: Patient reports the use of cigarette tobacco products, unknown. - Family history:: not pertinent. ROS: 08:42 Constitutional: Negative for fever, chills, and weight loss, positive for acute right sp4 upper abdominal pain 08:42 All other systems are negative, Exam: 08:42 Constitutional: This is a well developed, well nourished patient who is awake, alert, sp4 and in no acute distress. Head/Face: Normocephalic, atraumatic. Eyes: Pupils equal round and reactive to light, extra-ocular motions intact. Lids and lashes normal. Conjunctiva and sclera are not injected. Cornea within normal limits. Periorbital areas with no swelling, redness, or edema. ENT: Nares patent. No nasal discharge, no septal abnormalities noted. Tympanic membranes are normal and external auditory canals are clear. Oropharynx with no redness, swelling, or masses, exudates, or evidence of obstruction, uvula midline. Mucous membranes moist. Neck: Trachea midline, no thyromegaly or masses palpated, and no cervical lymphadenopathy. Supple, full range of motion without nuchal rigidity, or vertebral point tenderness. Chest/axilla: Normal chest wall appearance and motion. Nontender with no deformity. No lesions are appreciated. Cardiovascular: Regular rate and rhythm with a normal S1 and S2. No gallops, murmurs, or rubs. Normal PMI, no JVD. No pulse deficits. Respiratory: Lungs have equal breath sounds bilaterally, clear to auscultation and percussion. No rales, rhonchi or wheezes noted. No increased work of breathing, no retractions or nasal flaring. Abdomen/GI: Soft, with normal bowel sounds. No distension or tympany. No guarding or rebound. No evidence of tenderness throughout. Back: No spinal tenderness. No costovertebral tenderness. Skin: Warm, dry with normal turgor. Normal color with no rashes, no lesions, and no evidence of cellulitis. MS/ Extremity: Pulses equal, no cyanosis. Neurovascular intact. Full, normal range of motion. Neuro: Awake and alert, GCS 15, oriented to person, place, time, and situation. Cranial nerves II-XII grossly intact. Motor strength 5/5 in all extremities. Sensory grossly intact. Psych: Awake, alert, with orientation to person, place and time. Behavior, mood, and affect are within normal limits Vital Signs: 05:15 BP 183 / 68; Pulse 85; Resp 17; Temp 98; Pulse Ox 99% on R/A; Weight 102.97 kg; Height rg5 5 ft. 5 in. ; Pain 9/10; 06:33 BP 122 / 44; Pulse 69; Resp 17; Pulse Ox 97% on R/A; Pain 2/10; rg5 07:20 BP 133 / 68; Pulse 69; Resp 18 S; Pulse Ox 95% on R/A; kc6 08:21 BP 154 / 64; Pulse 72; Resp 16 S; Pulse Ox 93% on R/A; kc6 09:58 BP 137 / 69; Pulse 72; Resp 16 S; Pulse Ox 95% on R/A; kc6 10:43 BP 137 / 69; Pulse 75; Resp 18 S; Pulse Ox 96% on R/A; kc6 13:49 BP 140 / 60; Pulse 78; Resp 18 S; Temp 98.2(O); Pulse Ox 96% on R/A; Pain 0/10; kc6 16:07 BP 102 / 83; Pulse 76; Resp 16 S; Pulse Ox 93% on R/A; Pain 7/10; kc6 05:15 Body Mass Index 37.77 (102.97 kg, 165.1 cm) rg5 05:15 Pain Scale: Adult rg5 06:33 Pain Scale: Adult rg5 13:49 Pain Scale: Adult kc6 16:07 Pain Scale: Adult kc6 [place] Coma Score: 08:42 Eye Response: spontaneous(4). Motor Response: obeys commands(6). Verbal Response: sp4 oriented(5). Total: 15. MDM: 06:45 Medical Screening Exam initiated sp4 08:42 ED course: CLINICAL HISTORY: Abdominal pain. COMPARISON: US Abdomen 03/02/2023. sp4 TECHNIQUE: CTABDOMEN PELVIS WITHOUT IV CONTRAST on 12/30/2024 5:36 AM CDT This exam was performed according to our departmental dose-optimization program, which includes automated exposure control, adjustment of the mA and/or kV according to patient size and/or use of iterative reconstruction technique. FINDINGS: Lower lungs are clear. Abdomen: Liver is normal in size. There is moderate pneumobilia. There is no biliary dilatation. Gallbladder is absent. The pancreas and spleen are normal in appearance. Adrenal glands are normal. Kidneys are mildly atrophic. Abdominal aorta is normal in course and caliber without aneurysm. There is no free air. There is no retroperitoneal adenopathy. Pelvis: There is no bowel obstruction. Urinary bladder is unremarkable. There is no free fluid. Hysterectomy was performed. Appendix is not clearly seen. Skeleton: There are no acute osseous findings. No suspicious bony lesions. IMPRESSION: No definite acute process.. 08:44 Differential diagnosis: arthritis, strain, contusion, Herniated disc UTI. Data sp4 reviewed: vital signs, nurses notes, lab test result(s), radiologic studies, CT scan. 08:44 Consideration of Admission/Observation Escalation of care including sp4 admission/observation considered. Transition of care: After a detail discussion of the patient's case, care is transferred to Chicho Lanza MD. 12/30 05:36 Order name: CBC with Diff; Complete Time: 07:17 sp4 12/30 05:36 Order name: CMP; Complete Time: 07:17 sp4 12/30 05:36 Order name: Lipase; Complete Time: 07:17 sp4 12/30 05:36 Order name: TSH; Complete Time: 07:17 sp4 12/30 05:36 Order name: T4 Free; Complete Time: 07:17 sp4 12/30 05:36 Order name: UA W/ Microscopic; Complete Time: 07:17 sp4 12/30 05:36 Order name: CT Abd/Pelvis - Without Contrast; Complete Time: 07:17 sp4 12/30 07:34 Order name: Abdomen Limited US; Complete Time: 13:26 la1 12/30 05:36 Order name: IV Saline Lock; Complete Time: 06:02 sp4 12/30 05:36 Order name: Labs collected and sent; Complete Time: 06:02 4 Administered Medications: 05:40 Drug: NS 0.9% IV 1000 ml IV at 1 bolus Per protocol; to be given as a bolus over 60 rg5 minutes Route: IV; Rate: 1 bolus; Site: right wrist; 07:22 Follow up: Response: No adverse reaction; IV Status: Completed infusion; IV Intake: kc6 100ml 05:45 Drug: Famotidine IVP 20 mg IVP once; dilute with 10 mL 0.9% NaCl; give over 2 minutes rg5 Route: IVP; Site: right wrist; 07:22 Follow up: Response: No adverse reaction kc6 05:45 Drug: Ondansetron IVP 8 mg IVP once; over 2 minutes Route: IVP; Site: right wrist; rg5 07:22 Follow up: Response: No adverse reaction kc6 05:50 Drug: TORadol - Ketorolac IVP 30 mg IVP once Route: IVP; Site: right wrist; rg5 07:22 Follow up: Response: No adverse reaction; Pain is decreased kc6 06:02 Drug: fentaNYL (PF) IVP 50 mcg IVP once Route: IVP; Site: right wrist; rg5 07:22 Follow up: Response: No adverse reaction; Pain is decreased; RASS: Alert and Calm (0) kc6 08:11 Drug: Meropenem IV 1 grams IV at per protocol once; (mix in NS 100 mL) Route: IV; Rate: kc6 per protocol; Site: right forearm; 09:58 Follow up: Response: No adverse reaction; IV Status: Completed infusion; IV Intake: kc6 100ml 16:02 Drug: Ondansetron IVP 4 mg IVP once; over 2 minutes Route: IVP; Site: right forearm; kc6 16:51 Follow up: Response: No adverse reaction; Nausea is decreased kc6 16:02 Not Given (Patient Refused; pt requesting Fentanyl): morphineor iv 4 mg IVP once over 4 kc6 mins; verbal with read back Disposition: 08:42 Chart complete. sp4 Disposition Summary: 12/30/24 08:42 Transfer Ordered Notes: Transfer Location: [facility] sp4 Reason: Higher level of care sp4 Condition: Stable sp4 Problem: new sp4 Symptoms: have improved sp4 Accepting Physician: [facility] attending physician.(12/30/24 17:49) kc6 Diagnosis - Intractable abdominal pain, right upper quadrant abdominal pain, pneumobilia sp4 Forms: - Medication Reconciliation Form sp4 - SBAR form sp4 Signatures: Dispatcher [employer] EDChicho Costello MD MD cha Bryson, James RN RN jb4 Blanka oLu RN RN kc6 Odilon Mckeon MD MD sp4 Jian Emmanuel RN RN rg5 Corrections: (The following items were deleted from the chart) 17:49 08:42 [facility] attending physician. sp4 kc6
--- NOTE | 2024-12-30 08:42 | ER ---
Nurse's Notes [facility] Name: Laura Khanna Age: 74 yrs Sex: Female : 1950 Arrival Date: 12/30/2024 Time: 05:01 Bed 18 Private MD: Diagnosis: Intractable abdominal pain, right upper quadrant abdominal pain, pneumobilia Presentation: 12/30 05:14 Chief complaint: Patient states: I am having right flank pain that goes to my mid back. jb4 It started 4 days ago and has gotten worse, it is making me nauseous, the pain is 9/10. Coronavirus screen: At this time, the client does not indicate any symptoms associated with coronavirus-19. Ebola Screen: No symptoms or risks identified at this time. Initial Sepsis Screen: Does the patient meet any 2 criteria? No. Patient's initial sepsis screen is negative. Does the patient have a suspected source of infection? No. Patient's initial sepsis screen is negative. Risk Assessment: Do you want to hurt yourself or someone else? Patient reports no desire to harm self or others. Onset of symptoms was December 30, 2024. Transition of care: patient was not received from another setting of care. 05:14 Method Of Arrival: Ambulatory jb4 05:14 Acuity: ZACARIAS 3 jb4 Triage Assessment: 05:10 General: Appears in no apparent distress. comfortable, Behavior is calm, cooperative, rg5 appropriate for age. 05:10 Pain: Complains of pain in back. EENT: No signs and/or symptoms were reported regarding rg5 the EENT system. Neuro: Level of Consciousness is awake, alert, obeys commands, Oriented to person, place, time, situation. Cardiovascular: Patient's skin is warm and dry. Respiratory: Airway is patent Trachea midline Respiratory effort is even, unlabored, Respiratory pattern is regular, symmetrical. GI: Abdomen is round obese, Abd is soft and non tender. : No signs and/or symptoms were reported regarding the genitourinary system. Derm: Skin is intact, Skin is dry, Skin is normal, Skin temperature is warm. Historical: - Allergies: 05:19 Iodine; jb4 05:19 PENICILLINS; jb4 05:19 Levaquin; jb4 - PMHx: 05:19 Pancreatitis; Myocardial infarction; Hypothyroidism; Diabetes - NIDDM; Hypertension; jb4 - PSHx: 05:19 cardiac stent; Cholecystectomy; Coronary artery bypass graft; Appendectomy; jb4 Tonsillectomy; - Immunization history:: Adult Immunizations up to date. - Infectious Disease History:: Denies. - Social history:: Smoking status: Patient denies any tobacco usage or history of. Smoking status: Patient reports the use of cigarette tobacco products, unknown. - Family history:: not pertinent. Screenin:19 [facility] ED Fall Risk Assessment (Adult) History of falling in the last 3 months, rg5 including since admission No falls in past 3 months (0 pts) Confusion or Disorientation No (0 pts) Intoxicated or Sedated No (0 pts) Impaired Gait No (0 pts) Mobility Assist Device Used No (0 pt) Altered Elimination No (0 pt) Score/Fall Risk Level 0 - 2 = Low Risk Oriented to surroundings, Educated pt \T\ family on fall prevention, incl call for assistance when getting out of bed, Hourly rounding (assess needs \T\ fall precautionary measures) done. Abuse screen: Denies threats or abuse. Nutritional screening: No deficits noted. Tuberculosis screening: No symptoms or risk factors identified. Assessment: 05:17 Pain: Complains of pain in back. Neuro: Level of Consciousness is awake, alert, obeys rg5 commands, Oriented to person, place, time, situation. Cardiovascular: Denies chest pain, Patient's skin is warm and dry. Respiratory: Airway is patent Trachea midline Respiratory effort is even, unlabored, Respiratory pattern is regular, symmetrical. GI: Abdomen is round obese, Bowel sounds present in left lower quadrant Abd is soft and non tender Reports nausea. : No signs and/or symptoms were reported regarding the genitourinary system. EENT: No deficits noted. Derm: Skin is intact. Musculoskeletal: Circulation, motion, and sensation intact. Range of motion: intact in all extremities. 07:20 General: Appears in no apparent distress. comfortable, well groomed, well developed, kc6 Behavior is calm, cooperative, appropriate for age. Pain: Complains of pain in back. Neuro: Level of Consciousness is awake, alert, obeys commands, Oriented to person, place, time, situation, Appropriate for age. Cardiovascular: Capillary refill < 3 seconds. Respiratory: Airway is patent Trachea midline Respiratory effort is even, unlabored, Respiratory pattern is regular, symmetrical. GI: Abdomen is round non-distended, Bowel sounds present X 4 quads. Abd is soft and non tender X 4 quads. Reports lower abdominal pain, Patient currently denies diarrhea, nausea, vomiting. : No signs and/or symptoms were reported regarding the genitourinary system. Urine is clear. EENT: No signs and/or symptoms were reported regarding the EENT system. Derm: No signs and/or symptoms reported regarding the dermatologic system. Skin is intact, is healthy with good turgor, Skin is dry, Skin is pale, Skin temperature is warm. Musculoskeletal: No signs and/or symptoms reported regarding the musculoskeletal system. Circulation, motion, and sensation intact. Range of motion: intact in all extremities. 08:21 Reassessment: Patient appears in no apparent distress at this time. No changes from kc6 previously documented assessment. Patient and/or family updated on plan of care and expected duration. Pain level reassessed. Patient is alert, oriented x 3, equal unlabored respirations, skin warm/dry/pink. 09:58 Reassessment: Patient appears in no apparent distress at this time. No changes from kc6 previously documented assessment. Patient and/or family updated on plan of care and expected duration. Pain level reassessed. Patient is alert, oriented x 3, equal unlabored respirations, skin warm/dry/pink. 10:30 Reassessment: pt ok to eat and drink per Dr. Lanza. kc6 10:43 Reassessment: Patient appears in no apparent distress at this time. No changes from kc6 previously documented assessment. Patient and/or family updated on plan of care and expected duration. Pain level reassessed. Patient is alert, oriented x 3, equal unlabored respirations, skin warm/dry/pink. 11:43 Reassessment: Patient appears in no apparent distress at this time. No changes from kc6 previously documented assessment. Patient and/or family updated on plan of care and expected duration. Pain level reassessed. Patient is alert, oriented x 3, equal unlabored respirations, skin warm/dry/pink. 12:45 Reassessment: Patient appears in no apparent distress at this time. No changes from kc6 previously documented assessment. Patient and/or family updated on plan of care and expected duration. Pain level reassessed. Patient is alert, oriented x 3, equal unlabored respirations, skin warm/dry/pink. 13:49 Reassessment: Patient appears in no apparent distress at this time. No changes from kc6 previously documented assessment. Patient and/or family updated on plan of care and expected duration. Pain level reassessed. Patient is alert, oriented x 3, equal unlabored respirations, skin warm/dry/pink. 14:39 Reassessment: Patient appears in no apparent distress at this time. No changes from kc6 previously documented assessment. Patient and/or family updated on plan of care and expected duration. Pain level reassessed. Patient is alert, oriented x 3, equal unlabored respirations, skin warm/dry/pink. 15:39 Reassessment: Patient appears in no apparent distress at this time. No changes from kc6 previously documented assessment. Patient and/or family updated on plan of care and expected duration. Pain level reassessed. Patient is alert, oriented x 3, equal unlabored respirations, skin warm/dry/pink. 16:08 Pain: Complains of pain in anterior aspect of right lateral abdomen, right upper kc6 quadrant and right lower quadrant. GI: Reports nausea. 16:51 Reassessment: Patient appears in no apparent distress at this time. No changes from kc6 previously documented assessment. Patient and/or family updated on plan of care and expected duration. Pain level reassessed. Patient is alert, oriented x 3, equal unlabored respirations, skin warm/dry/pink. 17:16 Reassessment: nurse to nurse report given to IRINA Cox at [facility]. kc6 17:48 Reassessment: Patient appears in no apparent distress at this time. No changes from kc6 previously documented assessment. Patient and/or family updated on plan of care and expected duration. Pain level reassessed. Patient is alert, oriented x 3, equal unlabored respirations, skin warm/dry/pink. Vital Signs: 05:15 BP 183 / 68; Pulse 85; Resp 17; Temp 98; Pulse Ox 99% on R/A; Weight 102.97 kg; Height rg5 5 ft. 5 in. ; Pain 9/10; 06:33 BP 122 / 44; Pulse 69; Resp 17; Pulse Ox 97% on R/A; Pain 2/10; rg5 07:20 BP 133 / 68; Pulse 69; Resp 18 S; Pulse Ox 95% on R/A; kc6 08:21 BP 154 / 64; Pulse 72; Resp 16 S; Pulse Ox 93% on R/A; kc6 09:58 BP 137 / 69; Pulse 72; Resp 16 S; Pulse Ox 95% on R/A; kc6 10:43 BP 137 / 69; Pulse 75; Resp 18 S; Pulse Ox 96% on R/A; kc6 13:49 BP 140 / 60; Pulse 78; Resp 18 S; Temp 98.2(O); Pulse Ox 96% on R/A; Pain 0/10; kc6 16:07 BP 102 / 83; Pulse 76; Resp 16 S; Pulse Ox 93% on R/A; Pain 7/10; kc6 05:15 Body Mass Index 37.77 (102.97 kg, 165.1 cm) rg5 05:15 Pain Scale: Adult rg5 06:33 Pain Scale: Adult rg5 13:49 Pain Scale: Adult kc6 16:07 Pain Scale: Adult kc6 Ryan Coma Score: 08:42 Eye Response: spontaneous(4). Motor Response: obeys commands(6). Verbal Response: sp4 oriented(5). Total: 15. ED Course: 05:03 Patient arrived in ED. jj6 05:08 Jian Emmanuel RN is Primary Nurse. rg5 05:09 Odilon Mckeon MD is Attending Physician. sp4 05:19 Triage completed. jb4 05:19 Patient has correct armband on for positive identification. Bed in low position. Call rg5 light in reach. Side rails up X 1. Door closed. Noise minimized. Verbal reassurance given. 05:19 Arm band placed on right wrist. jb4 05:19 No provider procedures requiring assistance completed. rg5 05:58 UA W/ Microscopic Sent. oe 06:14 CT Abd/Pelvis - Without Contrast In Process Unspecified. EDMS 07:00 Report received from IRINA Bañuelos. kc6 07:00 Patient has correct armband on for positive identification. Bed in low position. Call kc6 light in reach. Side rails up X2. Adult w/ patient. Pulse ox on. NIBP on. Door closed. Noise minimized. Lights dimmed. Warm blanket given. Pillow given. Verbal reassurance given. 07:00 Patient maintains SpO2 saturation greater than 95% on room air. kc6 07:22 Diet: Patient given ice chips. Tolerated well. kc6 07:40 Attending Physician role handed off by Odilon Mckeon MD [facility] 07:40 Chicho Lanza MD is Attending Physician. [facility] 07:[address] Lanza called [facility] for transfer talked to Cici. 0750 [facility] called sp back pending discharges. 07:59 Abdomen Limited US In Process Unspecified. EDMS 08:41 Odilon Mckeon MD is Attending Physician. sp4 11:10 Diet: Patient given snack. Tolerated well. kc6 12:29 Diet: Patient given ice chips. Tolerated well. kc6 12:44 talked with Romero and still pending a bed for transfer. sp 13:[address] Noris Centeno accepted pt to [facility]'s 1605 admin approval by Romero Ernandez sp report [phone] bed [id number] called [facility] talked to Demian. 13:49 Diet: Patient given a heart healthy meal tray. Patient given ice chips. Patient given kc6 water. Tolerated well. 15:27 Patient requests pain medication. kc6 17:48 Patient transferred, IV remains in place. kc6 Administered Medications: 05:40 Drug: NS 0.9% IV 1000 ml IV at 1 bolus Per protocol; to be given as a bolus over 60 rg5 minutes Route: IV; Rate: 1 bolus; Site: right wrist; 07:22 Follow up: Response: No adverse reaction; IV Status: Completed infusion; IV Intake: kc6 100ml 05:45 Drug: Famotidine IVP 20 mg IVP once; dilute with 10 mL 0.9% NaCl; give over 2 minutes rg5 Route: IVP; Site: right wrist; 07:22 Follow up: Response: No adverse reaction kc6 05:45 Drug: Ondansetron IVP 8 mg IVP once; over 2 minutes Route: IVP; Site: right wrist; rg5 07:22 Follow up: Response: No adverse reaction kc6 05:50 Drug: TORadol - Ketorolac IVP 30 mg IVP once Route: IVP; Site: right wrist; rg5 07:22 Follow up: Response: No adverse reaction; Pain is decreased kc6 06:02 Drug: fentaNYL (PF) IVP 50 mcg IVP once Route: IVP; Site: right wrist; rg5 07:22 Follow up: Response: No adverse reaction; Pain is decreased; RASS: Alert and Calm (0) kc6 08:11 Drug: Meropenem IV 1 grams IV at per protocol once; (mix in NS 100 mL) Route: IV; Rate: kc6 per protocol; Site: right forearm; 09:58 Follow up: Response: No adverse reaction; IV Status: Completed infusion; IV Intake: kc6 100ml 16:02 Drug: Ondansetron IVP 4 mg IVP once; over 2 minutes Route: IVP; Site: right forearm; kc6 16:51 Follow up: Response: No adverse reaction; Nausea is decreased kc6 16:02 Not Given (Patient Refused; pt requesting Fentanyl): morphineor iv 4 mg IVP once over 4 kc6 mins; verbal with read back Medication: 05:20 VIS not applicable for this client. rg5 Intake: 07:22 IV: 100ml; Total: 100ml. kc6 09:58 IV: 100ml; Total: 200ml. kc6 Outcome: 08:42 ER care complete, transfer ordered by sp4 17:48 Transferred by ground EMS [facility] to [facility], Transfer form kc6 completed. 17:48 Condition: good 17:48 Instructed on the need for transfer, 17:49 Patient left the ED. kc6 Signatures: Dispatcher [employer] EDMS Chicho Lanza MD MD cha Pinkerton, Shawna sp Bryson, James, RN RN jb4 Amilcar Whitaker Jennifer jj6 Blanka Lou RN RN kc6 Odilon Mckeon MD MD sp4 Jian Emmanuel RN RN rg5
--- NOTE | 2024-12-30 09:54 | RAD REPORT ---
EXAMINATION: US Abdomen Exam Limited CLINICAL HISTORY: pneumobilia, no gallbladder;Abd pain Bed Name: 18 COMPARISON: CT abdomen and pelvis of the same day.. TECHNIQUE: Limited upper abdominal grayscale and color flow sonographic images. FINDINGS: Gallbladder: Surgically removed Bile ducts: No intrahepatic or extrahepatic biliary dilatation. Common bile duct measures 5 mm in ca liber, within normal. Echogenicities along the central intrahepatic biliary radicals, compatible with pneumobilia, which could relate to an incompetent sphincter of Oddi. Liver: Visualized portions of the liver demonstrate normal echogenicity with no suspicious findings. Fluid: No ascites. IMPRESSION: Status post cholecystectomy. Findings of central pneumobilia, could relate to sphincter of Oddi as above.
[2024-12-30] MEDS ORDERED: MORPHINE 4 MG/ML SYR ONE (15:55)
[2024-12-30 18:15] VITALS: TEMP 98.2
[2024-12-30 18:16] VITALS: BP 102/83; O2SAT 93
== END 2024-12-30 17:49 | disposition short-term general hospital (02) ==
LOC: ER 05:01
DX: R10.11 Right upper quadrant pain (principal); K83.8 Other specified diseases of biliary tract; Z72.0 Tobacco use
CPT/HCPCS: 85025; 81001; 36415; 84443; 84439; 83690; 80053; 74176; 76705; 99285; J3010; J2185; J2405 ×2; J7030